=== PATIENT | female | born 1950 | race Caucasian/White ===

== ENCOUNTER 2016-05-16 20:38 | Inpatient (IN) | payer MEDICARE, OTHER ==
[~2016-05-16] VITALS: Ht 165.1 cm; Wt 112.9 kg
[~2016-05-16 20:38] MED LIST: AMLO10TA82 PO; ASP81CT PO; CLON-378 PO; CLON0.3T4 PO; DABI150C2 PO; DILT300C PO; DOXA2TAB2 PO; ENAL10TA PO; FAMO20TA5 PO; FLAX100031 PO; FLEC150T PO; INSU100C4 SQ; INSU100I23 SQ; LUTE10TA PO; LVT.1T PO; METO-310 PO; MULT1CAP27 PO; OMEG1CAP58 PO; ONDA8TAB13 PO; PRAV80TA2 PO; QUIN20TA15 PO; SLM50DS INH; TRAM50TA2 PO; [UNRECOGNIZED DRUG - OTHER] IH
--- OUTSIDE RECORDS SUMMARY | 2016-05-16 20:44 | XMS REPORT | Continuity of Care Document ---
Author Author [facility] Organization [facility] Address Unknown Phone Unavailable Care Team Providers Care Special Education Associate Name Role Phone SHELL TOVAR MD PCP Insurance Providers Payer Name Policy Number Subscriber Name Relationship [facility] [id number] Carol Durham Self / Same As Patient Advance Directives Directive Response Recorded Date/Time Advance Directives Yes 01/10/14 5:18pm Health Care Power of Drier Operator Yes 01/10/14 5:18pm Organ Donor No 01/10/14 5:18pm Resuscitation Status Full Code 01/10/14 5:18pm Problems Medical Problems Problem Onset Date Status Bat bite of finger Unknown Active Need for post exposure prophylaxis for rabies Unknown Active Medications Medication Dose Route Sig Days/Qty Instructions Order Date Discontinued Date Status Clonidine HCl 1 Each PO TWICE A DAY 10/14/11 11/02/11 Discontinued Quinapril Hcl 40 Mg PO TWICE A DAY 10/14/11 01/10/14 Discontinued Amlodipine Besylate (Norvasc 10 Mg) 1 Each PO DAILY 10/14/11 Discontinued Levothyroxine Sodium (Levothroid) 1 Each PO DAILY 10/14/11 Active Pravastatin Sodium 40 Mg PO DAILY 10/14/11 11/02/11 Discontinued Insulin Glargine 27 Units SQ BEDTIME 10/14/11 Active Insulin Human Lispro 0 SQ DAILY AC SLINDING SCALE 10/14/11 Active Dabigatran Etexilate Mesylate 150 Mg PO TWICE A DAY 10/15/11 Active Diltiazem HCl (Cardizem Cd) 1 Each PO DAILY 10/15/11 01/10/14 Discontinued Clonidine HCl 1 Each PO TWICE A DAY 11/02/11 Active Lutein 10 Mg PO DAILY 11/02/11 Active Multivitamins 1 Each PO DAILY 11/02/11 Active Aspirin 81 Mg PO DAILY 11/02/11 11/02/11 Discontinued Salmeterol Xinafoate 0 INH DAILY PRN 11/02/11 Active [place]-3/[place]-6/[place]-9 Fatty Acids (Lovaza) 2 Each PO DAILY 01/10/14 Discontinued Pravastatin Sodium 40 Mg PO 11/02/11 Active Diltiazem HCl (Cartia Xt) 1 Each PO DAILY 01/10/14 Active Enalapril Maleate 10 Mg PO DAILY 01/10/14 Active Flaxseed Oil 1,200 Mg PO TWICE A DAY 01/10/14 Active Flecainide Acetate 150 Mg PO TWICE A DAY 01/10/14 Active [Maxaire] IH NEEDED 01/10/14 Active Social History Social History Problem Response Recorded Date/Time Alcohol Use Denies Use 01/10/2014 5:18pm Recreational Drug Use No 01/10/2014 5:18pm Smoking Status Never a Smoker 01/10/2014 5:18pm Query Response Start Date Stop Date Smoking Status Never a Smoker Hospital Discharge Instructions No hospital discharge instructions. Plan of Care No plan of care. Functional Status No functional status results. Allergies, Adverse Reactions, Alerts Allergen Type Severity Reaction Status Last Updated No Known Drug Allergies Active 10/14/11 Immunizations Name Given Type Date of Influenza Vaccine 03/15/11 Historical Tetanus Booster (TDap) Less than 5yrs Historical rabies, intramuscular injection 01/10/14 Administered RIG 01/10/14 Administered Vital Signs Acute Vital Signs Vital Response Date/Time Temperature (Fahrenheit) 98.6 degrees F (97.6 - 99.5) Temperature (Calculated Celsius) 37.30754 degrees C (36.4 - 37.5) Temperature Source Temporal Pulse Rate (adult) 75 bpm (60 - 90) Respiratory Rate 18 bpm (12 - 24) O2 Sat by Pulse Oximetry 96 % (88 - 100) Blood Pressure 196/61 mm Hg Pain Pain Intensity 0 Height (Feet) 5 feet Height (Inches) 5 inches Height (Calculated Centimeters) 165.142406 cm Weight (Pounds) 234 pounds Weight (Calculated Kilograms) 106.667482 kilograms Calculated BMI 38.93 Results Test Source Date Result Interp. Ref. Range Comments Activated Partial Thromboplast Time November 01, 2011 9:02am 38 SEC H 24-35 Alanine Aminotransferase (ALT/SGPT) March 08, 2013 8:20am 30 U/L N 30- 65 Albumin March 08, 2013 8:20am 3.5 G/DL N 3.4-5.0 Alkaline Phosphatase March 08, 2013 8:20am 111 U/L N 50-136 Aspartate Amino Transf (AST/SGOT) March 08, 2013 8:20am 18 U/L N 15- 37 BUN/Creatinine Ratio October 02, 2013 10:31am 21 - Blood Urea Nitrogen October 02, 2013 10:31am 15 MG/DL N 7-18 Calcium Level October 02, 2013 10:31am 9.4 MG/DL N 8.5-10.1 Carbon Dioxide Level October 02, 2013 10:31am 33 MMOL/L H 21-32 Chloride Level October 02, 2013 10:31am 102 MMOL/L N 101-110 Cholesterol Level March 08, 2013 8:20am 149 MG/DL N -200 Creatinine October 02, 2013 10:31am 0.7 MG/DL N 0.6-1.3 Digoxin Level January 05, 2012 11:00am 0.7 NG/ML L 0.9-2.0 Glucose Level December 19, 2013 11:46am 165 MG/DL H 70-105 HDL Cholesterol March 08, 2013 8:20am 68 MG/DL H 35-60 Hematocrit November 01, 2011 9:02am 38 % N 35-52 Hemoglobin November 01, 2011 9:02am 12.7 G/DL N 11.5-16.0 Hemoglobin A1c December 19, 2013 11:46am 8.4 % H 4.5-6.2 LDL Cholesterol March 08, 2013 8:20am 60 MG/DL N 0-129 LDL Cholesterol Direct June 07, 2012 11:00am 54 MG/DL - Interpretative data is available online at:[email or web address] Test Number:[id number] Magnesium Level February 04, 2012 10:31am 1.8 MG/DL N 1.8-2.4 Mean Corpuscular Hemoglobin November 01, 2011 9:02am 30 PG N 25-34 Mean Corpuscular Hemoglobin Concent November 01, 2011 9:02am 33 G/DL N 32- 36 Mean Corpuscular Volume November 01, 2011 9:02am 89 FL N 80-99 Mean Platelet Volume November 01, 2011 9:02am 11.4 FL H 7.4-10.4 Platelet Count November 01, 2011 9:02am 253 10^3/uL N 130-400 Potassium Level October 02, 2013 10:31am 4.8 MMOL/L N 3.6-5.0 Prothromb Time International Ratio November 01, 2011 9:02am 1.0 N 0.8-1.4 INTERPRETIVE DATASUGGESTED THERAPEUTIC RANGE FOR INR'S: VENOUS THROMBOSIS, PULMONARY EMBOLISM, OR PREVENTION OF SYSTEMIC EMBOLISM (EG. IN ATRIAL FIBRILLATION): 2.0 - 3.0 MECHANICAL PROSTHETIC HEART VALVES: 2.5 - 3.5* *NOTE: INR'S UP TO 4.5 MAY BE NECESSARY IN SELECTED GROUPS OF HIGH RISK PATIENTS. [employer] CONSENSUS CONFERENCE ON ANTITHROMBOTIC THERAPY (2000). Prothrombin Time November 01, 2011 9:02am 13.6 SEC N 12.2-14.7 Red Blood Count November 01, 2011 9:02am 4.28 10^6/uL L 4.35-5.85 Red Cell Distribution Width November 01, 2011 9:02am 14.2 % N 10.0-14.5 Sodium Level October 02, 2013 10:31am 136 MMOL/L N 135-145 Thyroid Stimulating Hormone (TSH) December 19, 2013 11:46am 0.92 UIU/ML N 0.35-4.94 Total Bilirubin March 08, 2013 8:20am 0.6 MG/DL N 0.0-1.0 Total Protein March 08, 2013 8:20am 7.6 G/DL N 6.4-8.2 Triglycerides Level March 08, 2013 8:20am 105 MG/DL N 30.0-150.0 Urine Bacteria January 08, 2014 1:45pm TRACE /HPF - SPECIMEN IN THE [facility] Urine Bilirubin January 08, 2014 1:45pm NEGATIVE - SPECIMEN IN THE [facility] [facility] Urine Casts January 08, 2014 1:45pm NONE /LPF - SPECIMEN IN [facility] Urine Clarity January 08, 2014 1:45pm CLEAR - SPECIMEN IN [facility] Urine Color January 08, 2014 1:45pm YELLOW - SPECIMEN IN [facility] Urine Creatinine Calculated March 08, 2013 8:27am 0.74 G/L - Urine Crystals January 08, 2014 1:45pm NONE /LPF - SPECIMEN IN THE [facility] Urine Culture Indicated January 08, 2014 1:45pm NO - SPECIMEN IN [facility] Urine Glucose (UA) January 08, 2014 1:45pm 4+ H - SPECIMEN IN THE [facility] Urine Ketones January 08, 2014 1:45pm NEGATIVE - SPECIMEN IN THE [facility] Urine Leukocyte Esterase January 08, 2014 1:45pm NEGATIVE - SPECIMEN IN THE [facility] Urine Microalbumin/Creatinine Ratio March 08, 2013 8:27am 3.5 MG/GCR - Urine Mucus January 08, 2014 1:45pm NEGATIVE /LPF - SPECIMEN IN THE [facility] Urine Nitrate September 19, 2007 10:34am Negative - Urine Nitrite January 08, 2014 1:45pm NEGATIVE - SPECIMEN IN THE [facility] Urine Protein January 08, 2014 1:45pm NEGATIVE - SPECIMEN IN THE [facility] Urine RBC January 08, 2014 1:45pm 0-2 /HPF - SPECIMEN IN THE [facility] Urine Random Microalbumin March 08, 2013 8:27am 2.6 MG/L - Urine Specific [place] January 08, 2014 1:45pm 1.020 - SPECIMEN IN THE [facility] Urine Squamous Epithelial Cells January 08, 2014 1:45pm 5-10 /HPF - SPECIMEN IN THE [facility] Urine Urobilinogen January 08, 2014 1:45pm NORMAL MG/DL - SPECIMEN IN THE [facility] Urine WBC January 08, 2014 1:45pm 0-2 /HPF - SPECIMEN IN THE [facility] Urine pH January 08, 2014 1:45pm 5 - SPECIMEN IN [facility] VLDL Cholesterol March 08, 2013 8:20am 21 MG/DL N 5-40 White Blood Count November 01, 2011 9:02am 8.1 10^3/uL N 4.3-11.0 Urine Creatinine mg/dL March 08, 2013 8:27am 74 MG/DL - Estimat Glomerular Filtration Rate October 02, 2013 10:31am > 60 - GFR INTERPRETIVE DATA UNITS FOR ESTIMATED GFR (eGFR): mL/min/1.73 M2 REFERENCE RANGE FOR ESTIMATED GFR (eGFR) eGFR NORMAL eGFR >60 MODERATELY DECREASED eGFR 30-59 SEVERLY DECREASED eGFR 15-29 KIDNEY FAILURE <15 (OR DIALYSIS) Urine RBC (Auto) January 08, 2014 1:45pm 1+ H - SPECIMEN IN THE [facility] Procedures No known history of procedures. Encounters Encounter Location Date/Time Departed Emergency Room [facility] 01/10/14 5:12pm Registered Recurring [facility] 01/08/14 1:38pm Registered Clinic [facility] 12/19/13 11:32am Recent Diagnosis
--- NOTE | 2016-05-16 22:04 | ED GI ---
General Chief Complaint: Abdominal/GI Problems Stated Complaint: VOMITING Nursing Triage Note: Pt presents to ED with c/o N/V/D. Diarrhea began last night- approx 2-3 x since onset. N/V began at 0900 today, has vomited approx 8 x since this AM. Sepsis Screen: No Definite Risk Source of Information: Patient, RN Notes Reviewed Exam Limitations: No Limitations History of Present Illness Time Seen By Provider: 22:04 Initial Comments As above. Also has had chest congestion and a cough for the last several days. Timing/Duration: 24 Hours Severity/Quality: Moderate Activities at Onset: None Modifying Factors: Worsens With Coughing Associated Symptoms: Nausea/Vomiting Shortness of Air Allergies and Home Medications Allergies Coded Allergies: insulin detemir (Verified Allergy, Intermediate, RASH, 04/03/16) red bumps at insertion site of injection Home Medications Clonidine Hcl 0.2 Mg Tab 0.2 MG PO BID (Reported) Dabigatran Etexilate Mesylate 150 Mg Capsule 150 MG PO BID (Reported) Diltiazem Hcl 300 Mg Cap.sr.24h 300 MG PO DAILY (Reported) Doxazosin Mesylate 2 Mg Tablet 2 MG PO BID (Reported) Enalapril Maleate 10 Mg Tablet 10 MG PO DAILY (Reported) Flaxseed Oil 1,000 Mg Capsule 2,000 MG PO DAILY (Reported) Flecainide Acetate 150 Mg Tablet 150 MG PO BID (Reported) Insulin Glargine,Hum.rec.anlog 300 Units/3 Ml Soln 27 UNITS SQ HS (Reported) Insulin Human Lispro 300 U/3 Ml Insuln.pen 0 SQ DAILY AC (Reported) SLINDING SCALE Levothyroxine Sodium 100 Mcg Tablet 100 MG PO DAILY (Reported) Lutein 10 Mg Tablet 10 MG PO DAILY (Reported) Metoclopramide HCl 10 Mg Tablet #30 10 MG PO ACHS PRN PRN nausea Prescribed by: ADRIANO BAEZ on 04/04/16 0921 Multivitamins 1 Each Capsule 1 EACH PO DAILY (Reported) Pravastatin Sodium 80 Mg Tablet 40 MG PO HS (Reported) Review of Systems Constitutional: see HPI Respiratory: See HPI Cough Gastrointestinal: Diarrhea Nausea Vomiting All Other Systems Reviewed Negative Unless Noted: Yes (Negative excepted noted.) Past Gpvrcic-Awrlyx-Xcxshg Hx Patient Social History Alcohol Use: Denies Use Recreational Drug Use: No Smoking Status: Never a Smoker Recent Foreign Travel: No Contact w/Someone Who Travel: No Recent Infectious Disease Expo: No Recent Hopitalizations: Yes (In ED at end of Mar with N/V.) Physical Abuse Screen: No Sexual Abuse: No Immunizations Up To Date Tetanus Booster (TDap): Less than 5yrs Date of Pneumonia Vaccine: Mar 03, 2015 Date of Influenza Vaccine: Mar 03, 2016 Seasonal Allergies Seasonal Allergies: No Surgeries HX Surgeries: Yes (BREAST FIBROID 1975 REMOVED) Surgeries: Bladder Surgery, Breast, Hysterectomy Respiratory Hx Respiratory Disorders: Yes Respiratory Disorders: Asthma Cardiovascular Hx Cardiac Disorders: Yes (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 12) Cardiac Disorders: Atrial Fibrillation, High Cholesterol, Hypertension Neurological Hx Neurological Disorders: No 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 System Hx 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 Disorders: No [employer] History: Hysterectomy Genitourinary Hx Genitourinary Disorders: No Gastrointestinal Hx Gastrointestinal Disorders: No Musculoskeletal Hx Musculoskeletal Disorders: No Endocrine Hx Endocrine Disorders: Yes Endocrine Disorders: Diabetes, Insulin dep, Hypothyroidsim HEENT HX ENT Disorders: No Cancer Hx Cancer: No Psychosocial Hx Psychiatric Problems: No Integumentary HX Skin/Integumentary Disorder: No Blood Transfusions Hx Blood Disorders: No Family Medical History Significant Family History: No Pertinent Family Hx Physical Exam Vital Signs VS - Last 72 Hours, by Label 05/16/16 05/16/16 05/16/16 05/16/16 21:45 22:00 22:30 23:00 Temp 98.9 98.9 98.7 98.6 Pulse 98 100 99 101 Resp 20 B/P 186/86 184/80 184/86 177/80 Pulse Ox 95 94 95 95 O2 Delivery Room Air Room Air Room Air Room Air 05/16/16 05/17/16 05/17/16 05/17/16 23:30 00:00 00:30 01:00 Temp 98.8 98.9 98.7 98.9 Pulse 104 101 105 101 Resp 20 B/P 189/84 224/74 200/79 154/77 Pulse Ox 94 96 95 94 O2 Delivery Room Air Room Air Room Air Room Air Capillary Refill : Less Than 3 Seconds General Appearance: WD/WN mild distress obese HEENT: other (oral pharynx is somewhat dry) Neck: normal inspection Respiratory: lungs clear Cardiovascular: regular rate, rhythm Gastrointestinal: No guarding, No rebound, tenderness (epigastric) other ( obese) Rectal: deferred Neurologic/Psychiatric: no motor/sensory deficits alert oriented x 3 Skin: warm/dry Progress/Results/Core Measures Results/Orders Lab Results Laboratory Tests Test 05/16/16 22:00 05/16/16 22:56 05/16/16 23:00 Range/Units Alanine Aminotransferase (ALT/SGPT) 22 0-55 U/L Albumin 4.3 3.2-4.5 G/DL Alkaline Phosphatase 85 40-136 U/L Anion Gap 16 H 5-14 MMOL/L Aspartate Amino Transf (AST/SGOT) 24 5-34 U/L BUN/Creatinine Ratio 23 Basophils # (Auto) 0.0 0.0-0.1 10^3/uL Basophils (%) (Auto) 0 0-10 % Blood Morphology Comment NORMAL Blood Urea Nitrogen 20 H 7-18 MG/DL Calcium Level 9.9 8.5-10.1 MG/DL Carbon Dioxide Level 22 21-32 MMOL/L Chloride Level 98 98-107 MMOL/L Creatinine 0.87 0.60-1.30 MG/DL Eosinophils # (Auto) 0.0 0.0-0.3 10^3/uL Eosinophils (%) (Auto) 0 0-10 % Estimat Glomerular Filtration Rate > 60 Glucose Level 340 H 70-105 MG/DL Hematocrit 38 35-52 % Hemoglobin 12.6 11.5-16.0 G/DL Lipase 21 8-78 U/L Lymphocytes # (Auto) 0.7 L 1.0-4.0 X 10^3 Lymphocytes % (Manual) 4 % Lymphocytes (%) (Auto) 8 L 12-44 % Magnesium Level 2.0 1.8-2.4 MG/DL Mean Corpuscular Hemoglobin 29 25-34 PG Mean Corpuscular Hemoglobin Concent 33 32-36 G/DL Mean Corpuscular Volume 88 80-99 FL Mean Platelet Volume 10.7 H 7.4-10.4 FL Monocytes # (Auto) 0.2 0.0-1.0 X 10^3 Monocytes % (Manual) 3 % Monocytes (%) (Auto) 2 0-12 % Neutrophils # (Auto) 7.4 1.8-7.8 X 10^3 Neutrophils % (Manual) 93 % Neutrophils (%) (Auto) 90 H 42-75 % Phosphorus Level 3.9 2.3-4.7 MG/DL Platelet Count 254 130-400 10^3/uL Potassium Level 4.7 3.6-5.0 MMOL/L Red Blood Count 4.34 L 4.35-5.85 10^6/uL Red Cell Distribution Width 14.2 10.0-14.5 % Sodium Level 136 135-145 MMOL/L Total Bilirubin 0.5 0.1-1.0 MG/DL Total Protein 7.8 6.4-8.2 G/DL Troponin I < 0.30 <0.30 NG/ML Urine Bacteria TRACE /HPF Urine Bilirubin NEGATIVE NEGATIVE Urine Casts PRESENT /LPF Urine Clarity CLEAR Urine Color YELLOW Urine Crystals NONE /LPF Urine Culture Indicated NO Urine Glucose (UA) 4+ H NEGATIVE Urine Hyaline Casts 5-10 H /LPF Urine Ketones 4+ H NEGATIVE Urine Leukocyte Esterase NEGATIVE NEGATIVE Urine Mucus NEGATIVE /LPF Urine Nitrite NEGATIVE NEGATIVE Urine Protein 2+ H NEGATIVE Urine RBC NONE /HPF Urine RBC (Auto) 3+ H NEGATIVE Urine Specific [place] 1.025 H 1.016-1.022 Urine Squamous Epithelial Cells 5-10 /HPF Urine Urobilinogen NORMAL NORMAL MG/DL Urine WBC RARE /HPF Urine pH 5 5-9 White Blood Count 8.3 4.3-11.0 10^3/uL Sumit Test NA Arterial Blood Base Excess 0.8 -2.5-2.5 MMOL/L Arterial Blood HCO3 27 23-27 MMOL/L Arterial Blood Oxygen Saturation 63 L 94-100 % Arterial Blood Partial Pressure CO2 48 H 35-45 MMHG Arterial Blood Partial Pressure O2 36 *L 79-93 MMHG Arterial Blood Total CO2 28.2 21.0-31.0 MMOL/L Arterial Blood pH 7.36 L 7.37-7.43 Blood Gas Inspired Oxygen NA Blood Gas Patient Temperature 98.8 Blood Gas Puncture Site LEFT AC Blood Gas Ventilator Setting NO Lactic Acid Level 0.9 0.5-2.0 MMOL/L Micro Results Microbiology 05/16/16 Blood Culture - Preliminary, Resulted No growth 05/16/16 Blood Culture - Preliminary, Resulted No growth 05/16/16 Influenza Types A,B Antigen (CHANTEL) - Final, Complete My Orders Orders-ANDREA MCCOY DO Saline Lock/Iv-Start (05/16/16 22:04) Cbc With Automated Diff (05/16/16 22:04) Comprehensive Metabolic Panel (05/16/16 22:04) Lipase (05/16/16 22:04) Magnesium (05/16/16 22:04) Troponin I (05/16/16 22:04) Ua Culture If Indicated (05/16/16 22:04) Influenza A And B Antigens (05/16/16 22:04) Famotidine Injection (Pepcid Injection) (05/16/16 22:15) Ondansetron Injection (Zofran Injectio (05/16/16 22:15) Manual Differential (05/16/16 22:00) Saline Lock/Iv-Start (05/16/16 22:31) Ns Iv 1000 Ml (Sodium Chloride 0.9%) (05/16/16 22:31) Arterial Blood Gas (05/16/16 22:32) Phosphorus (05/16/16 22:32) Ondansetron Injection (Zofran Injectio (05/16/16 23:00) Ct Abdomen/Pelvis Wo (05/16/16 22:52) Blood Culture (05/16/16 23:00) Lactic Acid Analyzer (05/16/16 23:00) Arterial Blood Gas (05/16/16 23:12) Clonidine Tablet (Catapres Tablet) (05/17/16 00:00) Clonidine Tablet (Catapres Tablet) (05/16/16 23:53) Insulin Aspart (Novolog) (Novolog (Charg (05/17/16 00:15) Chest 1 View, Ap/Pa Only (05/17/16 00:19) Ceftriaxone Injection (Rocephin Injectio (05/17/16 00:45) Ns Iv 1000 Ml (Sodium Chloride 0.9%) (05/17/16 00:45) Ceftriaxone Injection (Rocephin Injectio (05/17/16 00:42) Normal Saline (Gonzalez Mini) (Ns (Gonzalez (05/17/16 00:42) Medications Given in ED Vital Signs/I&O Vital Sign - Last 12Hours 05/16/16 05/16/16 05/16/16 05/16/16 21:45 22:00 22:30 23:00 Temp 98.9 98.9 98.7 98.6 Pulse 98 100 99 101 Resp 18 20 20 20 B/P 186/86 184/80 184/86 177/80 Pulse Ox 95 94 95 95 O2 Delivery Room Air Room Air Room Air Room Air 05/16/16 05/17/16 05/17/16 05/17/16 23:30 00:00 00:30 01:00 Temp 98.8 98.9 98.7 98.9 Pulse 104 101 105 101 Resp 20 18 22 20 B/P 189/84 224/74 200/79 154/77 Pulse Ox 94 96 95 94 O2 Delivery Room Air Room Air Room Air Room Air Blood Pressure Mean: 119 Departure Communication Time/Spoke to Admitting Phy: 00:40 Impression Impression: Primary Impression: Nausea and vomiting Additional Impressions: RLL pneumonia DKA (diabetic ketoacidoses) Disposition: ADMITTED INPATIENT Condition: Stable Decision to Admit Reason: Admit from ER (General) Decision to Admit/Date: May 17, 2016 Time/Decision to Admit Time: 00:40 Departure-Patient Inst. Referrals: SHELL TOVAR MD (PCP/Family) Primary Care Physician ANDREA MCCOY DO May 16, 2016 22:04
[2016-05-16 22:10] LABS: BASOPHILS % (AUTO) 0 % (0-10); BILIRUBIN,URINE NEGATIVE (NEGATIVE); EOSINOPHILS % (AUTO) 0 % (0-10); KETONES,URINE 4+ (NEGATIVE); LEUKOCYTE ESTERASE ,URINE NEGATIVE (NEGATIVE); LYMPHOCYTES # (AUTO) 0.7 X 10^3 (1.0-4.0); LYMPHOCYTES % (AUTO) 8 % (12-44); MEAN CORPUSCULAR HEMOGLOBIN 29 PG (25-34); MEAN CORPUSCULAR HGB CONC 33 G/DL (32-36); MEAN CORPUSCULAR VOLUME 88 FL (80-99); MEAN PLATELET VOLUME 10.7 FL (7.4-10.4); MONOCYTES # (AUTO) 0.2 X 10^3 (0.0-1.0); MONOCYTES % (AUTO) 2 % (0-12); NEUTROPHILS # (AUTO) 7.4 X 10^3 (1.8-7.8); NEUTROPHILS % (AUTO) 90 % (42-75); NITRITE,URINE NEGATIVE (NEGATIVE); PH,URINE 5 (5-9); PLATELET COUNT 254 10^3/uL (130-400); PROTEIN,URINE 2+ (NEGATIVE); RED BLOOD COUNT 4.34 10^6/uL (4.35-5.85); RED CELL DISTRIBUTION WIDTH 14.2 % (10.0-14.5); UROBILINOGEN,URINE NORMAL (NORMAL); WHITE BLOOD COUNT 8.3 10^3/uL (4.3-11.0)
[2016-05-16] MEDS ORDERED: ONDANSETRON 4 MG/2 ML (SDV) Z0FRAN IVP ONE ×2 (22:15→23:00)
[2016-05-16] MEDS ORDERED: FAMOTIDINE 20MG/2ML IV (PEPCID) IVP ONE (22:15)
[2016-05-16 22:28] LABS: WBC,URINE RARE /HPF
[2016-05-16] MEDS ORDERED: NS IV 1000 ML 1,000 ML IV ONE (22:31)
[2016-05-16 22:37] LABS: ALANINE AMINOTRANSFERASE 22 U/L (0-55); ALBUMIN 4.3 G/DL (3.2-4.5); ANION GAP 16 MMOL/L (5-14); ASPARTATE AMINO TRANSFERASE 24 U/L (5-34); BILIRUBIN,TOTAL 0.5 MG/DL (0.1-1.0); BLOOD UREA NITROGEN 20 MG/DL (7-18); BUN/CREATININE RATIO 23; CALCIUM 9.9 MG/DL (8.5-10.1); CARBON DIOXIDE 22 MMOL/L (21-32); CHLORIDE 98 MMOL/L (98-107); CREATININE SERUM 0.87 MG/DL (0.60-1.30); GFR ESTIMATED > 60; GLUCOSE 340 MG/DL (70-105); LIPASE 21 U/L (8-78); POTASSIUM 4.7 MMOL/L (3.6-5.0); SODIUM 136 MMOL/L (135-145); TOTAL PROTEIN 7.8 G/DL (6.4-8.2)
[2016-05-16 22:43] LABS: TROPONIN I < 0.30 NG/ML (<0.30)
[2016-05-16 22:49] LABS: LYMPHOCYTES % (MANUAL) 4 %; NEUTROPHILS % (MANUAL) 93 %
[2016-05-16 23:25] LABS: ABG BASE EXCESS 0.8 MMOL/L (-2.5-2.5); ABG HCO3 27 MMOL/L (23-27); ABG PCO2 48 MMHG (35-45); ABG PH 7.36 (7.37-7.43); ABG TCO2 28.2 MMOL/L (21.0-31.0)
[2016-05-16 23:26] LABS: ABG OXYGEN SATURATION 63 % (94-100); ABG PO2 36 MMHG (79-93); PATIENT TEMP 98.8
[2016-05-16] MEDS ORDERED: cloNIDine 0.2 MG (CATAPRES) TAB ONE (23:53)
[2016-05-17] VITALS (14 sets, daily range): BP systolic 139–189; BP diastolic 55–112
[2016-05-17] MEDS ORDERED: cloNIDine 0.2 MG (CATAPRES) TAB PO ONE
[2016-05-17] MEDS ORDERED: inSUlin ASPART (NovoLOG) 1 UNIT/0.01 ML (CHARGE PER UNIT) SC ONE (00:15)
[2016-05-17] MEDS ORDERED: cefTRIAXone 1 GM (ROCEPHIN) VIAL ONE (00:42)
[2016-05-17] MEDS ORDERED: NORMAL SALINE (BAXTER MINI) 50 ML IV ONE (00:42)
[2016-05-17] MEDS ORDERED: NS IV 1000 ML 1,000 ML IV SCH ×2 (00:45→03:45)
[2016-05-17] MEDS ORDERED: cefTRIAXone INJECTION 1,000 MG in NORMAL SALINE (BAXTER MINI) 50 ML IV ONE (00:45)
[2016-05-17] MEDS ORDERED: NS (IVPB) 100 ML ONE (01:59)
[2016-05-17] MEDS ORDERED: inSUlin (REGULAR) HUMAN 1 UNIT/0.01 ML (CHARGE PER UNIT) ONE (02:01)
[2016-05-17] MEDS ORDERED: AZITHROMYCIN IV ADD-VANTAGE 500 MG IV ONE (02:07)
[2016-05-17] MEDS ORDERED: SODIUM CHLORIDE (ADD-VANTAGE) 250 ML ONE (02:08)
[2016-05-17] MEDS ORDERED: RT-ALBUTEROL SULF 2.5 MG/3 ML PRE-MIX VIAL INH PRN (03:15)
[2016-05-17] MEDS ORDERED: NS IV 1000 ML X 1 WIDE OPEN IV ONE (03:45)
[2016-05-17] MEDS ORDERED: DEXTROSE 10% IV SCH (03:45)
[2016-05-17] MEDS ORDERED: REGULAR inSUlin DRIP 250 UNITS/NS 250 ML IV SCH ×2 (03:45)
[2016-05-17] MEDS ORDERED: 1/2 NS W/KCL 20 MEQ/L 1,000 ML IV SCH (03:45)
[2016-05-17] MEDS ORDERED: POTASSIUM CL 10MEQ/50ML IVPB X 4 (TOTAL 40 MEQ) IV SCH (03:45)
[2016-05-17] MEDS ORDERED: POTASSIUM CHLORIDE IV SCH (03:45)
[2016-05-17] MEDS ORDERED: ONDANSETRON 4 MG/2 ML (SDV) Z0FRAN IV PRN (03:45)
[2016-05-17 04:26] LABS: BASOPHILS % (AUTO) 0 % (0-10); EOSINOPHILS % (AUTO) 0 % (0-10); LYMPHOCYTES % (AUTO) 8 % (12-44); MEAN CORPUSCULAR HEMOGLOBIN 29 PG (25-34); MEAN CORPUSCULAR HGB CONC 33 G/DL (32-36); MEAN CORPUSCULAR VOLUME 89 FL (80-99); MEAN PLATELET VOLUME 11.3 FL (7.4-10.4); MONOCYTES # (AUTO) 0.7 X 10^3 (0.0-1.0); MONOCYTES % (AUTO) 5 % (0-12); NEUTROPHILS # (AUTO) 10.9 X 10^3 (1.8-7.8); NEUTROPHILS % (AUTO) 87 % (42-75); PLATELET COUNT 230 10^3/uL (130-400); RED CELL DISTRIBUTION WIDTH 14.2 % (10.0-14.5); WHITE BLOOD COUNT 12.6 10^3/uL (4.3-11.0)
[2016-05-17 04:52] LABS: ANION GAP 13 MMOL/L (5-14); BLOOD UREA NITROGEN 19 MG/DL (7-18); BUN/CREATININE RATIO 25; CALCIUM 8.9 MG/DL (8.5-10.1); CARBON DIOXIDE 21 MMOL/L (21-32); CHLORIDE 105 MMOL/L (98-107); CREATININE SERUM 0.75 MG/DL (0.60-1.30); GFR ESTIMATED > 60; GLUCOSE 240 MG/DL (70-105); PHOSPHORUS 4.1 MG/DL (2.3-4.7); POTASSIUM 4.2 MMOL/L (3.6-5.0); SODIUM 139 MMOL/L (135-145)
[2016-05-17] MEDS ORDERED: D5 1/2 NS 1000 ML IV SOLUTION 0 ML IV ONE (06:22)
--- NOTE | 2016-05-17 06:38 | Diagnostic Imaging Report ---
PROCEDURE: CT abdomen and pelvis without contrast. TECHNIQUE: Multiple contiguous axial images were obtained through the abdomen and pelvis without the use of intravenous contrast. INDICATION: Cough. Infiltrate in the right lower lobe is suggestive of mild pneumonia. No basilar effusion. Liver, gallbladder, bile ducts, spleen, adrenals, pancreas unremarkable. There is a small hiatal hernia. There are no opaque kidney stones there is no hydronephrosis. There are no findings of appendicitis or diverticulitis. There is no evidence for bowel obstruction. Aorta is calcified but nonaneurysmal. No lymphadenopathy or mass. No acute osseous disease. IMPRESSION: Unobstructed urinary tracts. No biliary dilatation. No bowel obstruction or acute inflammatory process below the diaphragm. Mild infiltrate in the right lower lobe, however, suspicious for pneumonia. Dictated by: Dictated on workstation # [id number]
--- NOTE | 2016-05-17 06:42 | Pulmonary Consultation ---
History of Present Illness History of Present Illness Date of Consultation 05/17/16 06:37 Date of Admission History of Present Illness 66yo with hx of IDDM type 1 presented to ED secondary to progressive SOB and N/ V/D. Symptoms started 2 days ago. SHe is no coughing anything up but did have orthopnea. Upon ED admission she was found to be in DKA and was started on insulin gtt. There is no one else at home sick. Influenza is negative. She does feel much improved since admission. I am consulted for ICU management. Allergies and Home Medications Allergies Coded Allergies: insulin detemir (Verified Allergy, Intermediate, RASH, 04/03/16) red bumps at insertion site of injection Home Medications Clonidine Hcl 0.2 Mg Tab 1 EACH PO BID (Reported) Dabigatran Etexilate Mesylate 150 Mg Capsule 150 MG PO BID (Reported) Diltiazem Hcl 300 Mg Cap.sr.24h 1 EACH PO DAILY (Reported) Doxazosin Mesylate 2 Mg Tablet 2 MG PO DAILY (Reported) Enalapril Maleate 10 Mg Tablet 10 MG PO DAILY (Reported) Flaxseed Oil 1,000 Mg Capsule 2,000 MG PO DAILY (Reported) Flecainide Acetate 150 Mg Tablet 150 MG PO BID (Reported) Insulin Glargine,Hum.rec.anlog 300 Units/3 Ml Soln 27 UNITS SQ HS (Reported) Insulin Human Lispro 300 U/3 Ml Insuln.pen 0 SQ DAILY AC (Reported) SLINDING SCALE Levothyroxine Sodium 100 Mcg Tablet 1 EACH PO DAILY (Reported) Lutein 10 Mg Tablet 10 MG PO DAILY (Reported) Metoclopramide HCl 10 Mg Tablet #30 10 MG PO ACHS PRN PRN nausea Prescribed by: ADRIANO BAEZ on 04/04/16 0921 Multivitamins 1 Each Capsule 1 EACH PO DAILY (Reported) Pravastatin Sodium 80 Mg Tablet 40 MG PO DAILY (Reported) Past Dsasntt-Gzfzqm-Rmicyp Hx Patient Social History Alcohol Use: Denies Use Recreational Drug Use: No Smoking Status: Never a Smoker Recent Foreign Travel: No Contact w/Someone Who Travel: No Recent Infectious Disease Expo: No Recent Hopitalizations: Yes (In ED at end of Mar with N/V.) Physical Abuse Screen: No Sexual Abuse: No Immunizations Up To Date Tetanus Booster (TDap): Less than 5yrs Date of Pneumonia Vaccine: May 04, 2016 Date of Influenza Vaccine: Mar 03, 2016 Seasonal Allergies Seasonal Allergies: No Surgeries HX Surgeries: Yes (BREAST FIBROID 1975 REMOVED) Surgeries: Bladder Surgery, Breast, Hysterectomy Respiratory Hx Respiratory Disorders: Yes Respiratory Disorders: Asthma Cardiovascular Hx Cardiac Disorders: Yes (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 12) Cardiac Disorders: Atrial Fibrillation, High Cholesterol, Hypertension Neurological Hx Neurological Disorders: No 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 System Hx 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 Disorders: 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 Genitourinary Hx Genitourinary Disorders: No Gastrointestinal Hx Gastrointestinal Disorders: No Musculoskeletal Hx Musculoskeletal Disorders: No Endocrine Hx Endocrine Disorders: Yes Endocrine Disorders: Diabetes, Insulin dep, Hypothyroidsim HEENT HX ENT Disorders: No Cancer Hx Cancer: No Psychosocial Hx Psychiatric Problems: No Integumentary HX Skin/Integumentary Disorder: No Blood Transfusions Hx Blood Disorders: No Adverse Reaction to a Blood Tr: No Family Medical History Significant Family History: No Pertinent Family Hx Family Medial History: Arthritis 19 FATHER 19 MOTHER Asthma 19 FATHER Cardiovascular disease 19 FATHER 19 MOTHER Cataracts 19 MOTHER Deafness or hearing loss 19 FATHER Dementia 19 MOTHER Diabetes mellitus G8 SISTER G8 SISTER Glaucoma 19 FATHER Hypertension 19 MOTHER Prostate cancer 19 FATHER Respiratory disorder 19 FATHER Thyroid disease G8 SISTER Review of Systems Constitutional: : Chills: Fever: Malaise: Sweats: Weakness Eyes: No: Conjunctivae inflammation, Eyelid inflammation, Other, Pain, Redness , Vision change ENT: : Nose congestion: Nose dischargeNo: Ear discharge, Ear pain, Mouth pain, Mouth swelling, Nose pain, Other, Throat pain, Throat swelling Respiratory: : Cough: Dry: SOB with excertion: Shortness of breathNo: Sputum, Wheezing Cardiovascular: : Orthopnea: Paroxysmal Noc. DyspneaNo: Chest Pain, Edema, Lt Headedness, Other, Palpitations Gastrointestinal: : Diarrhea: Nausea: VomitingNo: Abdominal Pain, Constipation Genitourinary: No Dysuria, No Frequency, No Incontinence, No Hematuria, No Retention, No Other Musculoskeletal: No: arm pain, back pain, foot pain, hand pain, leg pain, neck pain, other, shoulder pain Skin: No: Bruising, Jaundice, Lesions, Other, Rash Neurological: : Weakness Exam Exam Vital Signs Date Time Temp Pulse Resp B/P Pulse Ox O2 Delivery O2 Flow Rate FiO2 05/17/16 05:00 83 05/17/16 04:00 94 Nasal Cannula 2.00 05/17/16 04:00 99.4 87 18 178/71 96 Nasal Cannula 2.00 05/17/16 03:14 92 Room Air 05/17/16 02:15 90 151/71 05/17/16 02:00 93 Room Air 05/17/16 02:00 100.0 94 18 165/112 93 Room Air 05/17/16 01:49 101 18 95 Room Air 05/17/16 01:30 98.7 101 20 139/74 95 Room Air 05/17/16 01:00 98.9 101 20 154/77 94 Room Air 05/17/16 00:30 98.7 105 22 200/79 95 Room Air 05/17/16 00:00 98.9 101 18 224/74 96 Room Air 05/16/16 23:30 98.8 104 20 189/84 94 Room Air 05/16/16 23:00 98.6 101 20 177/80 95 Room Air 05/16/16 22:30 98.7 99 20 184/86 95 Room Air 05/16/16 22:00 98.9 100 20 184/80 94 Room Air 05/16/16 21:45 98.9 98 18 186/86 95 Room Air I & O 05/17/16 07:00 Intake Total 250 ml Balance 250 ml General Appearance: No Apparent Distress WD/WN HEENT: PERRL/EOMI Normal ENT Inspection Pharynx Normal Neck: Full Range of Motion Non Tender Supple Respiratory: Chest Non Tender Lungs Clear Normal Breath Sounds No Accessory Muscle Use No Respiratory Distress Cardiovascular: Regular Rate, Rhythm No Edema No Gallop No JVD No Murmur Capillary Refill: Less Than 3 Seconds Gastrointestinal: normal bowel sounds non tender soft no organomegaly Extremity: Normal Capillary Refill Neurologic/Psychiatric: Alert Oriented x3 No Motor/Sensory Deficits Skin: Normal Color Warm/Dry Lymphatic: No Adenopathy Results Lab Laboratory Tests 05/16/16 22:00 05/17/16 03:58 Assessment/Plan Assessment/Plan -PNeumonia -CAP probably atypical vs viral -Continue rocephin and azithromycin DKA -- improved -Will give home lantus and stop insulin gtt 2 hrs after lantus -Change IVF to NS at 100cc/hr -monitor -Advance diet to DM diet Gastroenteritis -Monitor -IVF OBesity, EDS, snoring, witnessed apnea - per Dr. Goodman -Pt needs outpt PSG Clinical Quality Measures DVT/VTE Risk/Contraindication: Risk Factor Score Per Nursin RFS Level Per Nursing on Admit: 4+=Very High EVELYN FROST DO May 17, 2016 06:42
[2016-05-17] MEDS: D5 1/2 NS W/KCL 20 MEQ/L 1,000 ML IV SCH ×2 (06:47→09:57)
[2016-05-17] MEDS: KCL 20 MEQ TAB (K-DUR) PO SCH (07:11)
[2016-05-17] MEDS: POTASSIUM CL 10MEQ/50ML IVPB 50 ML IV SCH (07:11)
[2016-05-17] MEDS: MAGNESIUM 1 GM/100 ML IVPB 100 ML IV SCH (07:11)
--- NOTE | 2016-05-17 07:19 | Diagnostic Imaging Report ---
INDICATION: Cough, shortness of air. FINDINGS: The lungs are clear. The heart and vessels normal. There is no pleural pathology. IMPRESSION: Negative. Dictated by: Dictated on workstation # [id number]
[2016-05-17 08:18] LABS: ANION GAP 11 MMOL/L (5-14); BLOOD UREA NITROGEN 19 MG/DL (7-18); BUN/CREATININE RATIO 25; CALCIUM 8.8 MG/DL (8.5-10.1); CARBON DIOXIDE 23 MMOL/L (21-32); CHLORIDE 105 MMOL/L (98-107); CREATININE SERUM 0.77 MG/DL (0.60-1.30); GFR ESTIMATED > 60; GLUCOSE 237 MG/DL (70-105); POTASSIUM 4.1 MMOL/L (3.6-5.0); SODIUM 139 MMOL/L (135-145)
--- NOTE | 2016-05-17 08:51 | Diagnostic Imaging Report ---
INDICATION: Pneumonia. COMPARISON: 05/17/2016. FINDINGS: The lungs are clear. The heart and vessels are normal. There is no effusion or pneumothorax. I IMPRESSION: Negative. Dictated by: Dictated on workstation # [id number]
[2016-05-17] MEDS: NS IV 1000 ML 1,000 ML IV SCH ×2 (09:02→19:24)
[2016-05-17] MEDS ORDERED: inSUlin ASPART (NovoLOG) 1 UNIT/0.01 ML (CHARGE PER UNIT) ONE (11:03)
[2016-05-17] MEDS: cloNIDine 0.2 MG (CATAPRES) TAB PO SCH ×2 (11:11→21:31)
[2016-05-17] MEDS: DILTIAZEM 300 MG (CARDIZEM CD) CAP PO SCH (11:11)
--- NOTE | 2016-05-17 11:33 | History & Physical-Hospitalist ---
HPI History of Present Illness: HPI/Chief Complaint upon arrival to evaluate the patient she had obvious obstructed breathing during sleep during which time her monitor alert when off with temporary saturation in the 8385 percent range. She woke easily with resolution of hypoxia. She did have audible wheezing noted without the stethoscope. She reports no previous known history of sleep apnea. She does report daytime somnolence and can fall asleep easily while reading or watching TV during the day. She reports nonrestorative sleep. She stated otherwise she was feeling well up until when she initially noted mild sore throat and head congestion. This slowly progressed over the weekend to cough which is typical for her and chest tightness. She denied chills fever or night sweats. Shortly after breakfast she noted coughing followed by nausea Tuesday morning she had a small amount of nonbloody emesis. She was feeling better by lunch time she forgot to take her shots at plan on eating a little bit later her blood sugar was 300 which she described her nausea 2. Before lunch however she had more violent episode of nausea and vomiting which persisted intermittently until 8 p.m. when they brought her to the emergency room. Toward the end she noted a very small amount of possible blood tinged emesis without any coffee-ground. She denied melena but did have several loose stools. They were without bright red blood as well Date Seen 05/17/16 Attending Physician Brittany Felipe Floyd R MD Referring Physician Date of Admission May 17, 2016 at 01:08 Home Medications & Allergies Home Medications Reviewed patient Home Medication Reconciliation Form Allergies Coded Allergies: insulin detemir (Verified Allergy, Intermediate, RASH, 04/03/16) red bumps at insertion site of injection Past Sjagfnf-Idccvm-Ylljti Hx Patient Social History Alcohol Use: Denies Use Recreational Drug Use: No Smoking Status: Never a Smoker Physical Abuse Screen: No Sexual Abuse: No Recent Foreign Travel: No Contact w/other who traveled: No Recent Hopitalizations: Yes (In ED at end of Mar with N/V.) Recent Infectious Disease Expo: No Immunizations Up To Date Tetanus Booster (TDap): Less than 5yrs Date of Pneumonia Vaccine: May 04, 2016 Date of Influenza Vaccine: Mar 03, 2016 Seasonal Allergies Seasonal Allergies: No Surgeries HX Surgeries: Yes (BREAST FIBROID 1975 REMOVED) Surgeries: Bladder Surgery, Breast, Hysterectomy Respiratory Hx Respiratory Disorders: Yes Cardiovascular Hx Cardiovascular Disorders: Yes (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 12) Cardiac Disorders: Atrial Fibrillation, High Cholesterol, Hypertension Neurological Hx Neurological Disorders: No 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 System Hx 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 Disorders: No Genitourinary Hx Genitourinary Disorders: No Gastrointestinal Hx Gastrointestinal Disorders: No Musculoskeletal Hx Musculoskeletal Disorders: No Endocrine Hx Endocrine Disorders: Yes Endocrine Disorders: Diabetes, Insulin dep, Hypothyroidsim HEENT HX ENT Disorders: No Cancer Hx Cancer: No Psychosocial Hx Psychiatric Problems: No Integumentary HX Skin/Integumentary Disorder: No Blood Transfusions Hx Blood Disorders: No Adverse Reaction to a Blood Tr: No Family Medical History Significant Family History: No Pertinent Family Hx Family Hx: Arthritis 19 FATHER 19 MOTHER Asthma 19 FATHER Cardiovascular disease 19 FATHER 19 MOTHER Cataracts 19 MOTHER Deafness or hearing loss 19 FATHER Dementia 19 MOTHER Diabetes mellitus G8 SISTER G8 SISTER Glaucoma 19 FATHER Hypertension 19 MOTHER Prostate cancer 19 FATHER Respiratory disorder 19 FATHER Thyroid disease G8 SISTER Review of Systems Constitutional: No no symptoms reported, see HPINo chills, No diaphoresis, No dizziness, No fever, No weakness, No weight gain, No weight loss Respiratory: No no symptoms reported, No see HPI, cough (nonproductive) dyspnea on exertionNo hemoptysis, No orthopnea, No phlegm, short of breathNo stridor, wheezingNo other Cardiovascular: No chest pain, No edema, No Hx of Intervention, No palpitations , No syncope, No vascular heart diseas Gastrointestinal: diarrhea nausea vomiting other (no reported abdominal pain.) Physical Exam Physical Exam Vital Signs Vital Sign - Last 12Hours 05/16/16 21:45 Temp 98.9 Pulse 98 Resp 18 B/P 186/86 Pulse Ox 95 O2 Delivery Room Air Capillary Refill : Less Than 3 Seconds General Appearance: Mild Distress Obese Neck: Full Range of Motion Normal Inspection Non Tender Supple Carotid Bruit Respiratory: Chest Non Tender Other (mild wheezing with prolonged expiratory phase she is not using accessory muscles respiration there was obvious obstructive breathing pattern is noted in history of present illness.) Extremity: Normal Inspection Normal Range of Motion Non Tender No Calf Tenderness No Pedal Edema Skin: Normal Color Warm/Dry Comments Laboratory Tests 05/16/16 22:00 05/17/16 03:58 05/17/16 07:47 Results Results/Procedures Lab Laboratory Tests 05/16/16 22:00 05/17/16 03:58 05/17/16 07:47 Assessment/Plan Admission Diagnosis 1. Atypical pneumonia likely viral in etiology with reactive airways. After discussion Dr. Bonds will continue breathing treatments and antibiotics for now we'll hold Solu-Medrol due to type II diabetes mellitus with hyperglycemia. 2. Suspect significant sleep apnea patient will be set up for sleep study per Dr. Bonds after discharge. 3. Ketosis likely due to combination of dehydration and hypoxia aggravated by number 1. There is no current evidence to suggest diabetic ketoacidosis. Will switch patient to basal bolus therapy. 4. Hypertension long-standing will continue home antihypertensive medication. Copy Copies To 1: SHELL TOVAR MD Clinical Quality Measures DVT/VTE Risk/Contraindication: Risk Factor Score Per Nursin RFS Level Per Nursing on Admit: 4+=Very High SHIMA WHEELER MD May 17, 2016 11:33
[2016-05-17] MEDS ORDERED: METOCLOPRAMIDE 10 MG (REGLAN) TAB PO PRN (11:45)
[2016-05-17] MEDS ORDERED: PATIENT MAY USE OWN MED,SINGLE MED PO SCH (11:45)
[2016-05-17] MEDS: RT-ALBUTEROL/IPRATROPIUM 3 ML (DUONEB) VIAL INH PRN (12:36)
[2016-05-17] MEDS ORDERED: doxAzosin 2 MG (CARDURA) TAB ONE (14:17)
[2016-05-17] MEDS ORDERED: FLECAINIDE 100 MG (TAMBOCOR) TAB PO ONE (14:17)
[2016-05-17] MEDS: doxAzosin 2 MG (CARDURA) TAB PO SCH ×2 (14:26→21:31)
[2016-05-17] MEDS: FLECAINIDE 100 MG (TAMBOCOR) TAB PO SCH ×2 (14:26→21:31)
[2016-05-17] MEDS: ENALAPRIL 10 MG (VASOTEC) TAB PO SCH (14:27)
[2016-05-17] MEDS: RT-ALBUTEROL/IPRATROPIUM 3 ML (DUONEB) VIAL INH SCH ×2 (15:00→20:16)
[2016-05-17] MEDS ORDERED: inSUlin ASPART (NovoLOG) 1 UNIT/0.01 ML (CHARGE PER UNIT) SC SCH (16:00)
[2016-05-17 16:31] LABS: ANION GAP 8 MMOL/L (5-14); BLOOD UREA NITROGEN 20 MG/DL (7-18); BUN/CREATININE RATIO 25; CALCIUM 8.6 MG/DL (8.5-10.1); CARBON DIOXIDE 27 MMOL/L (21-32); CHLORIDE 106 MMOL/L (98-107); CREATININE SERUM 0.79 MG/DL (0.60-1.30); GFR ESTIMATED > 60; GLUCOSE 238 MG/DL (70-105); POTASSIUM 4.4 MMOL/L (3.6-5.0); SODIUM 141 MMOL/L (135-145)
[2016-05-17] MEDS: inSUlin ASPART (NovoLOG) 1 UNIT/0.01 ML (CHARGE PER UNIT) SQ SCH (16:49)
[2016-05-17] MEDS ORDERED: cloNIDine 0.2 MG (CATAPRES) TAB PO SCH (21:00)
[2016-05-17] MEDS ORDERED: SIMvastatin 20 MG (ZOCOR) TAB PO SCH (21:00)
[2016-05-17] MEDS: DABIGATRAN 150 MG (PRADAXA) CAPSULE PO SCH (21:32)
[2016-05-18] VITALS (13 sets, daily range): BP systolic 125–188; BP diastolic 54–79
[2016-05-18] MEDS ORDERED: NORMAL SALINE (BAXTER MINI) 50 ML IV ONE (01:46)
[2016-05-18] MEDS ORDERED: cefTRIAXone 1 GM (ROCEPHIN) VIAL ONE (01:46)
[2016-05-18] MEDS ORDERED: cefTRIAXone 1 GM/NS 50 ML IVPB IV SCH ×2 (02:00)
[2016-05-18] MEDS: RT-ALBUTEROL/IPRATROPIUM 3 ML (DUONEB) VIAL INH SCH ×2 (02:21→09:51)
[2016-05-18] MEDS: NS IV 1000 ML 1,000 ML IV SCH ×2 (03:15→05:47)
[2016-05-18 03:56] LABS: BASOPHILS % (AUTO) 0 % (0-10); EOSINOPHILS # (AUTO) 0.1 10^3/uL (0.0-0.3); EOSINOPHILS % (AUTO) 1 % (0-10); LYMPHOCYTES % (AUTO) 26 % (12-44); MEAN CORPUSCULAR HEMOGLOBIN 29 PG (25-34); MEAN CORPUSCULAR HGB CONC 32 G/DL (32-36); MEAN CORPUSCULAR VOLUME 91 FL (80-99); MEAN PLATELET VOLUME 11.4 FL (7.4-10.4); MONOCYTES # (AUTO) 0.7 X 10^3 (0.0-1.0); MONOCYTES % (AUTO) 9 % (0-12); NEUTROPHILS # (AUTO) 4.8 X 10^3 (1.8-7.8); NEUTROPHILS % (AUTO) 63 % (42-75); PLATELET COUNT 220 10^3/uL (130-400); RED BLOOD COUNT 3.44 10^6/uL (4.35-5.85); RED CELL DISTRIBUTION WIDTH 14.7 % (10.0-14.5); WHITE BLOOD COUNT 7.6 10^3/uL (4.3-11.0)
[2016-05-18 04:18] LABS: ANION GAP 11 MMOL/L (5-14); BLOOD UREA NITROGEN 20 MG/DL (7-18); BUN/CREATININE RATIO 27; CALCIUM 8.2 MG/DL (8.5-10.1); CARBON DIOXIDE 20 MMOL/L (21-32); CHLORIDE 108 MMOL/L (98-107); CREATININE SERUM 0.74 MG/DL (0.60-1.30); GFR ESTIMATED > 60; GLUCOSE 225 MG/DL (70-105); PHOSPHORUS 3.8 MG/DL (2.3-4.7); POTASSIUM 4.2 MMOL/L (3.6-5.0); SODIUM 139 MMOL/L (135-145)
[2016-05-18] MEDS: RT-ALBUTEROL/IPRATROPIUM 3 ML (DUONEB) VIAL INH PRN (05:18)
[2016-05-18] MEDS: MAGNESIUM 1 GM/100 ML IVPB 100 ML IV SCH (06:00)
[2016-05-18] MEDS: POTASSIUM CL 10MEQ/50ML IVPB 50 ML IV SCH (06:00)
[2016-05-18] MEDS: KCL 20 MEQ TAB (K-DUR) PO SCH (06:00)
--- NOTE | 2016-05-18 07:14 | Pulmonary Progress Note ---
Subjective Subjective/Events-last exam No complications noted Exam Exam Vital Signs Date Time Temp Pulse Resp B/P Pulse Ox O2 Delivery O2 Flow Rate FiO2 05/18/16 06:00 85 11 157/56 97 Nasal Cannula 05/18/16 05:18 97 Nasal Cannula 2.00 05/18/16 05:00 78 14 172/66 99 Nasal Cannula 05/18/16 04:00 97.5 86 18 172/66 98 Nasal Cannula 2.00 05/18/16 04:00 97 Nasal Cannula 2.00 05/18/16 03:00 69 11 156/70 98 Nasal Cannula 05/18/16 02:21 96 Nasal Cannula 2.00 05/18/16 02:00 68 13 147/72 96 Nasal Cannula 2.00 05/18/16 01:11 68 05/18/16 01:00 58 12 136/55 98 Nasal Cannula 2.00 05/18/16 00:00 98.5 59 18 156/69 94 Nasal Cannula 2.00 05/18/16 00:00 94 Nasal Cannula 2.00 05/17/16 23:00 65 12 140/68 94 Room Air 05/17/16 22:00 74 15 139/69 98 Room Air 05/17/16 21:00 75 14 169/66 97 Room Air 05/17/16 20:16 89 Room Air 05/17/16 20:00 75 18 150/70 93 Room Air 05/17/16 20:00 96 Nasal Cannula 2.00 05/17/16 19:20 100.1 78 18 142/55 94 Room Air 05/17/16 19:00 75 05/17/16 17:00 76 16 148/60 95 Nasal Cannula 2.00 05/17/16 16:00 Nasal Cannula 2.00 05/17/16 16:00 75 16 94 Nasal Cannula 2.00 05/17/16 15:45 98.5 05/17/16 15:00 96 Nasal Cannula 0.50 05/17/16 15:00 78 22 96 Nasal Cannula 2.00 05/17/16 14:00 75 13 93 Nasal Cannula 2.00 05/17/16 13:00 80 14 160/65 92 Nasal Cannula 2.00 05/17/16 13:00 84 05/17/16 12:36 94 Nasal Cannula 0.50 05/17/16 12:00 89 18 96 Nasal Cannula 2.00 05/17/16 12:00 99.9 05/17/16 12:00 Nasal Cannula 2.00 05/17/16 11:00 95 18 95 Nasal Cannula 2.00 05/17/16 10:00 96 18 189/64 96 Nasal Cannula 2.00 05/17/16 09:00 94 20 171/78 95 Nasal Cannula 2.00 05/17/16 09:00 98.9 05/17/16 08:00 Nasal Cannula 2.00 05/17/16 08:00 93 18 153/66 94 Nasal Cannula 2.00 I & O 05/18/16 07:00 Intake Total 4136 ml Balance 4136 ml General Appearance: No Apparent Distress WD/WN Obese HEENT: PERRL/EOMI Normal ENT Inspection Pharynx Normal Neck: Full Range of Motion Normal Inspection Non Tender Supple Carotid Bruit Respiratory: Chest Non Tender Other (mild wheezing with prolonged expiratory phase she is not using accessory muscles respiration there was obvious obstructive breathing pattern is noted in history of present illness.) Cardiovascular: Regular Rate, Rhythm No Edema No Gallop No JVD No Murmur Capillary Refill: Less Than 3 Seconds Gastrointestinal: No guarding, No rebound, tenderness (epigastric) other ( obese) Extremity: Normal Inspection Normal Range of Motion Non Tender No Calf Tenderness No Pedal Edema Neurologic/Psychiatric: Alert Oriented x3 No Motor/Sensory Deficits Skin: Normal Color Warm/Dry Lymphatic: No Adenopathy Results Lab Laboratory Tests 05/16/16 22:00 05/17/16 03:58 05/17/16 07:47 05/17/16 16:08 05/18/16 03:20 Assessment/Plan Assessment/Plan -PNeumonia -CAP probably atypical vs viral -Continue rocephin and azithromycin IDDM -Will give home lantus and stop insulin gtt 2 hrs after lantus -Change IVF to NS at 100cc/hr -monitor -Advance diet to DM diet Gastroenteritis -Monitor -IVF OBesity, EDS, snoring, witnessed apnea - per Dr. Goodman -Pt needs outpt PSG Will transfer to [facility]. Pt is ok for discharge from pulmonary standpoint with omnicef and azithromycin x 5-7 days Clinical Quality Measures DVT/VTE Risk/Contraindication: Risk Factor Score Per Nursin RFS Level Per Nursing on Admit: 4+=Very High EVELYN FROST DO May 18, 2016 07:14
--- NOTE | 2016-05-18 08:11 | Diagnostic Imaging Report ---
INDICATION: Pneumonia. COMPARISON: 05/17/2016 FINDINGS: Single frontal view of the chest demonstrates normal heart size and pulmonary vascularity. The lungs are well aerated and clear. No large pleural effusion or pneumothorax is seen. The visualized osseous structures show no acute abnormalities. IMPRESSION: 1. No acute cardiopulmonary process. Dictated by: Dictated on workstation # [id number]
[2016-05-18] MEDS: inSUlin ASPART (NovoLOG) 1 UNIT/0.01 ML (CHARGE PER UNIT) SQ SCH ×2 (08:28→12:10)
[2016-05-18] MEDS: FLECAINIDE 100 MG (TAMBOCOR) TAB PO SCH (08:29)
[2016-05-18] MEDS: DILTIAZEM 300 MG (CARDIZEM CD) CAP PO SCH (08:29)
[2016-05-18] MEDS: doxAzosin 2 MG (CARDURA) TAB PO SCH (08:29)
[2016-05-18] MEDS: cloNIDine 0.2 MG (CATAPRES) TAB PO SCH (08:29)
[2016-05-18] MEDS: ENALAPRIL 10 MG (VASOTEC) TAB PO SCH (08:29)
[2016-05-18] MEDS: DABIGATRAN 150 MG (PRADAXA) CAPSULE PO SCH (08:30)
[2016-05-18] MEDS ORDERED: AZITHROMYCIN 250 MG TAB (ZITHROMAX) PO SCH (09:00)
[2016-05-18] MEDS ORDERED: LEVOTHYROXINE 100 MCG (LEVOTHROID) TAB PO SCH (09:00)
[2016-05-18] MEDS ORDERED: DILTIAZEM 300 MG (CARDIZEM CD) CAP PO SCH (09:00)
[2016-05-18] MEDS ORDERED: CEFD300C3 PO (09:10)
[2016-05-18] MEDS ORDERED: AZIT250T5 PO (09:10)
[2016-05-18] MEDS ORDERED: RT-ALBUINH IH (09:58)
--- NOTE | 2016-05-18 11:52 | Discharge Summary-Hospitalist ---
Diagnosis/Chief Complaint Date of Admission May 17, 2016 at 01:08 Date of Discharge Discharge Date: May 18, 2016 Admission Diagnosis 1. Atypical pneumonia likely viral in etiology with reactive airways. After discussion Dr. Bonds will continue breathing treatments and antibiotics for now we'll hold Solu-Medrol due to type II diabetes mellitus with hyperglycemia. 2. Suspect significant sleep apnea patient will be set up for sleep study per Dr. Bonds after discharge. 3. Ketosis likely due to combination of dehydration and hypoxia aggravated by number 1. There is no current evidence to suggest diabetic ketoacidosis. Will switch patient to basal bolus therapy. 4. Hypertension long-standing will continue home antihypertensive medication. Discharge Diagnosis 1. Atypical right lower lobe pneumonia likely viral in etiology. 2. Obstructive breathing pattern during sleep patient being set up for sleep study to evaluate for sleep apnea. 3. Hypertension 4. Paroxysmal atrial fibrillation Reason Hospital Visit/Course upon arrival to evaluate the patient she had obvious obstructed breathing during sleep during which time her monitor alert when off with temporary saturation in the 8385 percent range. She woke easily with resolution of hypoxia. She did have audible wheezing noted without the stethoscope. She reports no previous known history of sleep apnea. She does report daytime somnolence and can fall asleep easily while reading or watching TV during the day. She reports nonrestorative sleep. She stated otherwise she was feeling well up until when she initially noted mild sore throat and head congestion. This slowly progressed over the weekend to cough which is typical for her and chest tightness. She denied chills fever or night sweats. Shortly after breakfast she noted coughing followed by nausea Tuesday morning she had a small amount of nonbloody emesis. She was feeling better by lunch time she forgot to take her shots at plan on eating a little bit later her blood sugar was 300 which she described her nausea 2. Before lunch however she had more violent episode of nausea and vomiting which persisted intermittently until 8 p.m. when they brought her to the emergency room. Toward the end she noted a very small amount of possible blood tinged emesis without any coffee-ground. She denied melena but did have several loose stools. They were without bright red blood as well. Hospital course: The patient was admitted to the intensive care unit and start on IV antibiotics IV fluids and bronchodilator therapy per MAT protocol. Dr. Bonds was consulted and he is set the patient up for an office visit to set up a home sleep study to rule out significant PHILLIP which considering her body habitus and clinical scenario with hypertension and history of paroxysmal atrial fibrillation is highly likely. She had mild wheezing but tolerated ambulation prior to discharge. Dr. Bonds requested that she be sent home on antibiotic therapy in the form of azithromycin and Omnicef which we'll continue for another 5 days. She had no CVAT diarrhea during her hospital stay. She still had some mild wheezing her only other medication change was the temporary addition of albuterol HFA via MDI with the tube spacer. She was advised to follow-up with Dr. Knott and bring her home blood pressure log. Her systolic blood pressures here were not well controlled predominantly in the 150-170 range with normal diastolic pressure. She was told this very well may improve if she has significant sleep apnea and is treated with CPAP. If blood pressures remain elevated otherwise may need to consider additional diuretic therapy which she has been trying to avoid due to increased urinary frequency to begin with. UA revealed no evidence for urinary tract infection. Discharge Summary Discharge Physical Examination Allergies: Coded Allergies: insulin detemir (Verified Allergy, Intermediate, RASH, 04/03/16) red bumps at insertion site of injection Vitals & I&Os Vital Signs Date Time Temp Pulse Resp B/P Pulse Ox O2 Delivery O2 Flow Rate FiO2 05/18/16 11:14 98 Nasal Cannula 2.00 05/18/16 11:00 76 13 125/54 05/18/16 08:32 98.2 Hospital Course Labs (last 24 hrs) Laboratory Tests 05/17/16 15:43: Glucometer 203H 05/17/16 16:08: Anion Gap 8, BUN/Creatinine Ratio 25, Blood Urea Nitrogen 20H, Calcium Level 8.6 , Carbon Dioxide Level 27, Chloride Level 106, Creatinine 0.79, Estimat Glomerular Filtration Rate > 60, Glucose Level 238H, Potassium Level 4.4, Sodium Level 141 05/17/16 21:30: Glucometer 118H 05/18/16 03:20: Anion Gap 11, BUN/Creatinine Ratio 27, Blood Urea Nitrogen 20H, Calcium Level 8.2L, Carbon Dioxide Level 20L, Chloride Level 108H, Creatinine 0.74, Estimat Glomerular Filtration Rate > 60, Glucose Level 225H, Potassium Level 4.2, Sodium Level 139, Basophils # (Auto) 0.0, Basophils (%) (Auto) 0, Eosinophils # (Auto) 0.1, Eosinophils (%) (Auto) 1, Hematocrit 31L, Hemoglobin 10.0L, Lymphocytes # (Auto) 2.0, Lymphocytes (%) (Auto) 26, Magnesium Level 2.0, Mean Corpuscular Hemoglobin 29, Mean Corpuscular Hemoglobin Concent 32, Mean Corpuscular Volume 91, Mean Platelet Volume 11.4H, Monocytes # (Auto) 0.7, Monocytes (%) (Auto) 9, Neutrophils # (Auto) 4.8, Neutrophils (%) (Auto) 63, Phosphorus Level 3.8, Platelet Count 220, Red Blood Count 3.44L, Red Cell Distribution Width 14.7H, White Blood Count 7.6 Microbiology 05/16/16 Blood Culture - Preliminary, Resulted No growth 05/16/16 Influenza Types A,B Antigen (CHANTEL) - Final, Complete Discharge Home Medications: Active Scripts Active Proair Hfa (Albuterol Sulfate) 8.5 Gm Hfa.aer.ad 1-2 Puff IH Q4HR Cefdinir 300 Mg Capsule 300 Mg PO BID Azithromycin 250 Mg Tablet 250 Mg PO UD TAKE 2 TABLETS ON DAY ONE THEN TAKE 1 TABLET DAILY FOR FOUR MORE DAYS Reglan (Metoclopramide HCl) 10 Mg Tablet 10 Mg PO ACHS PRN Reported Doxazosin Mesylate 2 Mg Tablet 2 Mg PO BID Flecainide Acetate 150 Mg Tablet 150 Mg PO BID Flax Seed Oil (Flaxseed Oil) 1,000 Mg Capsule 2,000 Mg PO DAILY Enalapril Maleate 10 Mg Tablet 10 Mg PO DAILY Diltiazem Er 300 Mg (Cartia Xt) (Diltiazem HCl) 300 Mg Cap.sr.24h 300 Mg PO DAILY Pravastatin Sodium 80 Mg Tablet 40 Mg PO HS Multivitamins 1 Each Capsule 1 Each PO DAILY Lutein 10 Mg Tablet 10 Mg PO DAILY Catapres Tab (Clonidine HCl) 0.2 Mg Tab 0.2 Mg PO BID Pradaxa (Dabigatran Etexilate Mesylate) 150 Mg Capsule 150 Mg PO BID Humalog Pen (Insulin Human Lispro) 300 U/3 Ml Insuln.pen 0 SQ DAILY AC SLINDING SCALE Lantus (Insulin Glargine) 300 Units/3 Ml Soln 27 Units SQ HS Levothyroxine 100 Mcg Tab (Levothyroxine Sodium) 100 Mcg Tablet 100 Mg PO DAILY Instructions to patient/family Please see electonic discharge instructions given to patient. Clinical Quality Measures DVT/VTE Risk/Contraindication: Risk Factor Score Per Nursin RFS Level Per Nursing on Admit: 4+=Very High Copy Copies To 1: SHELL KNOTT MD, MARK D MD May 18, 2016 11:52
== END 2016-05-18 12:50 | disposition home or self-care (01) | DRG 194 ==
LOC: EDUNIT# 20:38 → ER 20:40 → ICU 05-17 01:08
PROVIDERS: ADMIT Internal Medicine; ATTEND Internal Medicine
DX: J12.9 Viral pneumonia, unspecified (principal); G47.30 Sleep apnea, unspecified; I10 Essential (primary) hypertension; I48.0 Paroxysmal atrial fibrillation; E86.0 Dehydration; E11.65 Type 2 diabetes mellitus with hyperglycemia; E66.9 Obesity, unspecified; Z68.41 Body mass index [BMI] 40.0-44.9, adult; E03.9 Hypothyroidism, unspecified
CPT/HCPCS: 36415; 71010; 74176; 80048; 80053; 81000; 82805; 82962; 83605; 83690; 83735; 84100; 84484; 85007; 85025; 85027; 87040; 87081; 87804; 94640; 96361; 96365; 96372; 96375; 96376

== ENCOUNTER → 2016-06-08 | Outpatient (CLI) | payer MEDICARE, OTHER ==
[~2016-06-08] MED LIST changes: +AZIT250T5 PO; +CEFD300C3 PO; +RT-ALBUINH IH
--- OUTSIDE RECORDS SUMMARY | 2016-06-08 11:10 | XMS REPORT | Continuity of Care Document ---
Author Author [facility] Organization [facility] Address Unknown Phone Unavailable Care Team Providers Care Dietary Aide Cook Name Role Phone SHELL TOVAR MD PCP Insurance Providers Payer Name Policy Number Subscriber Name Relationship Wps Medicare [id number] Bernadette Durham 17 Self / Same As Patient [facility] Insurance [id number] Bernadette Durham 17 Self / Same As Patient Advance Directives Directive Response Recorded Date/Time Advance Directives Yes 05/17/16 2:00am Health Care Power of Java Security Engineer Y /MARIA LUISA 05/17/16 2:00am Organ Donor No 05/17/16 2:00am Resuscitation Status Full Code 05/17/16 2:00am Chief Complaint and Reason for Visit Chief Complaint W\V\D; PNEUMONIA;DKA Reason for Visit Diabetes mellitus Need for post exposure prophylaxis for rabies RLL pneumonia Problems Active Problems Medical Problem Onset Date Status Abdominal pain Unknown Acute Bat bite of finger Unknown Acute DKA (diabetic ketoacidoses) Unknown Acute Dehydration Unknown Acute Diabetes mellitus Unknown Acute Diabetes mellitus Unknown Acute Gallbladder polyp Unknown Acute Hypertension Unknown Acute Nausea and vomiting Unknown Acute Need for post exposure prophylaxis for rabies Unknown Acute RLL pneumonia Unknown Acute Medications Current Home Medications Medication Dose Units Route Directions Days/Qty Instructions Start Date Levothyroxine Sodium (Levothroid) 100 Mcg 100 Mg Oral Daily 10/14/11 Insulin Glargine 300 Units/3 Ml 27 Units Sub-Q Bedtime 10/14/11 Insulin Human Lispro 300 U/3 Ml 0 Sub-Q Daily Ac SLINDING SCALE 15/05 Dabigatran Etexilate Mesylate 150 Mg 150 Mg Oral Twice A Day Clonidine Hcl 0.2 Mg 0.2 Mg Oral Twice A Day 11/02/11 Lutein 10 Mg 10 Mg Oral Daily 11/02/11 Multivitamins 1 Each 1 Each Oral Daily 11/02/11 Pravastatin Sodium 80 Mg 40 Mg Oral Bedtime 11/02/11 Diltiazem Hcl (Cartia Xt) 300 Mg 300 Mg Oral Daily 01/10/14 Enalapril Maleate 10 Mg 10 Mg Oral Daily 01/10/14 Flaxseed Oil 1,000 Mg 2,000 Mg Oral Daily 01/10/14 Flecainide Acetate 150 Mg 150 Mg Oral Twice A Day 01/10/14 Doxazosin Mesylate 2 Mg 2 Mg Oral Twice A Day 04/03/16 Metoclopramide Hcl 10 Mg 10 Mg Oral Before Meals And At Bedtime as needed for Nausea 30 04/04/16 Azithromycin 250 Mg 250 Mg Oral As Directed 6 TAKE 2 TABLETS ON DAY ONE THEN TAKE 1 TABLET DAILY FOR FOUR MORE DAYS 05/18/16 Cefdinir (Omnicef) 300 Mg 300 Mg Oral Twice A Day 05/18/16 Albuterol Sulfate 8.5 Gm 1-2 Puff Inhalation Give Every 4 Hrs On Schedule for Shortness Of Breath 1 05/18/16 Past Home Medications Medication Directions Ordered Status Clonidine Hcl 0.3 Mg Tablet, 1 Each Oral Twice A Day 10/14/11 Discontinued Quinapril Hcl 20 Mg Tablet, 40 Mg Oral Twice A Day 10/14/11 Discontinued Amlodipine Besylate (Norvasc 10 Mg) 10 Mg Tablet, 1 Each Oral Daily 10/14/11 Discontinued Pravastatin Sodium 80 Mg Tablet, 40 Mg Oral Daily 10/14/11 Discontinued Diltiazem Hcl (Cardizem Cd) 300 Mg Cap.sr.24h, 1 Each Oral Daily 10/15/11 Discontinued Aspirin 81 Mg Chew, 81 Mg Oral Daily 11/02/11 Discontinued Salmeterol Xinafoate 50 Mcg Disk, 0 Inhalation Daily as needed 11/02/11 Discontinued [place]-3/[place]-6/[place]-9 Fatty Acids (Lovaza) 1 Each Capsule, 2 Each Oral Daily 11/02/11 Discontinued [Maxaire] , Inhalation As Needed 01/10/14 Discontinued Ondansetron 8 Mg Tab.rapdis, 8 Mg Oral Every 6 Hours as needed for Nausea/ Vomiting 04/18/14 Discontinued Famotidine (Pepcid) 20 Mg Tablet, 1 Each Oral Twice A Day 04/18/14 Discontinued Tramadol Hcl 50 Mg Tablet, 50 Mg Oral Every 4HRS as needed for Pain 04/18/14 Discontinued Social History Social History Problem Response Recorded Date/Time Alcohol Use Denies Use 04/18/2014 12:46pm Recreational Drug Use No 04/18/2014 12:46pm Recent Foreign Travel No 05/17/2016 2:00am Recent Infectious Disease Exposure No 05/17/2016 2:00am Hospitalization with Isolation Denies 05/18/2016 2:48pm Smoking Status Never a Smoker 05/17/2016 2:00am Recent Hopitalizations Y In ED at end of Mar with N/V. 05/17/2016 2:00am Hospitalization with Isolation Denies 05/18/2016 2:48pm Query Response Start Date Stop Date Smoking Status Never a Smoker Hospital Discharge Instructions No hospital discharge instructions. Plan of Care Discharge Date 05/18/16 12:50pm Disposition 01 HOME, SELF-CARE Instructions/Education Provided Nausea and Vomiting, Adult Community-Acquired Pneumonia in Adults Prescriptions See Medication Section Referrals EVELYN FROST DO (Unspecified) - Address: [address] [place] [address] [place] [address] Reason(s) for Referral: 06/22/16 @ 10:30 SHELL TOVAR MD (Unspecified) - Address: [address] [place] [address] Reason(s) for Referral: 05/25/16 @ 10:00 Care Plan and Goals Functional Status Query Response Date Recorded Patient Orientation Person Place Time Situation Eyes Open May 18, 2016 2:48pm Comprehension Ability Understands Concepts May 18, 2016 11:14am Allergies, Adverse Reactions, Alerts Allergen Type Severity Reaction Status Last Updated insulin detemir ([id number]) Allergy Intermediate RASH Active 04/03/16 Immunizations No immunization records. Vital Signs Acute Vital Signs Vital Response Date/Time Temperature (Fahrenheit) 98.2 degrees F (97.6 - 99.5) 05/18/2016 8:32am Temperature (Calculated Celsius) 36.42641 degrees C (36.4 - 37.5) 05/18/2016 8:32am Temperature Source Temporal 05/18/2016 8:32am Pulse Rate (adult) 76 bpm (60 - 90) 05/18/2016 11:00am Respiratory Rate 13 bpm (12 - 24) 05/18/2016 11:00am O2 Sat by Pulse Oximetry 98 % (88 - 100) 05/18/2016 11:14am Blood Pressure 125/54 mm Hg 05/18/2016 11:00am Blood Pressure Mean 77 mm Hg 05/18/2016 11:00am Pain Numeric Pain Scale 0-No Pain 05/18/2016 4:00am Height (Feet) 5 feet 05/17/2016 2:00am Height (Inches) 5.00 inches 05/17/2016 2:00am Height (Calculated Centimeters) 165.638709 cm 05/17/2016 2:00am Weight (Pounds) 249 pounds 05/18/2016 6:00am Weight (Ounces) 9.0 oz 05/17/2016 2:00am Weight (Calculated Grams) 353991.501 gm 05/18/2016 6:00am Weight (Calculated Kilograms) 112.131478 kilograms 05/18/2016 6:00am Calculated BMI 41.2 05/17/2016 2:00am Capillary Refill Capillary Refill Less Than 3 Seconds 05/17/2016 1:30am Results Laboratory Results Test Name Result Units Flags Reference Collection Date/Time Result Date/ Time Comments White Blood Count 7.6 10^3/uL 4.3-11.0 05/18/2016 3:20am 05/18/2016 4: 08am Red Blood Count 3.44 10^6/uL L 4.35-5.85 05/18/2016 3:20am 05/18/2016 4: 08am Hemoglobin 10.0 G/DL L 11.5-16.0 05/18/2016 3:20am 05/18/2016 4:08am Hematocrit 31 % L 35-52 05/18/2016 3:20am 05/18/2016 4:08am Mean Corpuscular Volume 91 FL 80-99 05/18/2016 3:05/18/2016 4: 08am Mean Corpuscular Hemoglobin 29 PG 25-34 05/18/2016 3:05/18/2016 4: 08am Mean Corpuscular Hemoglobin Concent 32 G/DL 32-36 05/18/2016 3:07/2016 4:08am Red Cell Distribution Width 14.7 % H 10.0-14.5 05/18/2016 3:2016 4:08am Platelet Count 220 10^3/uL 130-400 05/18/2016 3:05/18/2016 4:08am Mean Platelet Volume 11.4 FL H 7.4-10.4 05/18/2016 3:05/18/2016 4: 08am Neutrophils (%) (Auto) 63 % 42-75 05/18/2016 3:05/18/2016 4:08am Lymphocytes (%) (Auto) 26 % 12-44 05/18/2016 3:05/18/2016 4:08am Monocytes (%) (Auto) 9 % 0-12 05/18/2016 3:05/18/2016 4:08am Eosinophils (%) (Auto) 1 % 0-10 05/18/2016 3:05/18/2016 4:08am Basophils (%) (Auto) 0 % 0-10 05/18/2016 3:05/18/2016 4:08am Neutrophils # (Auto) 4.8 X 10^3 1.8-7.8 05/18/2016 3:05/18/2016 4: 08am Lymphocytes # (Auto) 2.0 X 10^3 1.0-4.0 05/18/2016 3:05/18/2016 4: 08am Monocytes # (Auto) 0.7 X 10^3 0.0-1.0 05/18/2016 3:05/18/2016 4: 08am Eosinophils # (Auto) 0.1 10^3/uL 0.0-0.3 05/18/2016 3:05/18/2016 4 :08am Basophils # (Auto) 0.0 10^3/uL 0.0-0.1 05/18/2016 3:05/18/2016 4: 08am Neutrophils % (Manual) 93 % 05/16/2016 10:00pm 05/16/2016 10:49pm Lymphocytes % (Manual) 4 % 05/16/2016 10:00pm 05/16/2016 10:49pm Monocytes % (Manual) 3 % 05/16/2016 10:00pm 05/16/2016 10:49pm Blood Morphology Comment NORMAL 05/16/2016 10:00pm 05/16/2016 10: 49pm Urine Color YELLOW 05/16/2016 10:00pm 05/16/2016 10:28pm Urine Clarity CLEAR 05/16/2016 10:00pm 05/16/2016 10:28pm Urine pH 5 5-9 05/16/2016 10:00pm 05/16/2016 10:28pm Urine Specific [place] 1.025 * 1.016-1.022 05/16/2016 10:00pm 2016 10:28pm Urine Protein 2+ * NEGATIVE 05/16/2016 10:00pm 05/16/2016 10:28pm Urine Glucose (UA) 4+ * NEGATIVE 05/16/2016 10:00pm 05/16/2016 10:28pm Urine RBC (Auto) 3+ * NEGATIVE 05/16/2016 10:00pm 05/16/2016 10:28pm Urine Ketones 4+ * NEGATIVE 05/16/2016 10:00pm 05/16/2016 10:28pm Urine Nitrite NEGATIVE NEGATIVE 05/16/2016 10:00pm 05/16/2016 10: 28pm Urine Bilirubin NEGATIVE NEGATIVE 05/16/2016 10:00pm 05/16/2016 10: 28pm Urine Urobilinogen NORMAL MG/DL NORMAL 05/16/2016 10:00pm 05/16/2016 10 :28pm Urine Leukocyte Esterase NEGATIVE NEGATIVE 05/16/2016 10:00pm 2016 10:28pm Urine RBC NONE /HPF 05/16/2016 10:00pm 05/16/2016 10:28pm Urine WBC RARE /HPF 05/16/2016 10:00pm 05/16/2016 10:28pm Urine Bacteria TRACE /HPF 05/16/2016 10:00pm 05/16/2016 10:28pm Urine Squamous Epithelial Cells 5-10 /HPF 05/16/2016 10:00pm 2016 10:28pm Urine Crystals NONE /LPF 05/16/2016 10:00pm 05/16/2016 10:28pm Urine Casts PRESENT /LPF 05/16/2016 10:00pm 05/16/2016 10:28pm Urine Hyaline Casts 5-10 /F * 05/16/2016 10:00pm 05/16/2016 10:28pm Urine Mucus NEGATIVE /LPF 05/16/2016 10:00pm 05/16/2016 10:28pm Urine Culture Indicated NO 05/16/2016 10:00pm 05/16/2016 10:28pm Sodium Level 139 MMOL/L 135-145 05/18/2016 3:20am 05/18/2016 4:20am Potassium Level 4.2 MMOL/L 3.6-5.0 05/18/2016 3:20am 05/18/2016 4:20am Chloride Level 108 MMOL/L H 98-107 05/18/2016 3:20am 05/18/2016 4:20am Carbon Dioxide Level 20 MMOL/L L 21-32 05/18/2016 3:20am 05/18/2016 4: 20am Anion Gap 11 MMOL/L 5-14 05/18/2016 3:20am 05/18/2016 4:20am Blood Urea Nitrogen 20 MG/DL H 7-18 05/18/2016 3:20am 05/18/2016 4:20am Creatinine 0.74 MG/DL 0.60-1.30 05/18/2016 3:20am 05/18/2016 4:20am BUN/Creatinine Ratio 27 05/18/2016 3:20am 05/18/2016 4:20am Estimat Glomerular Filtration Rate > 60 05/18/2016 3:20am 2016 4:20am GFR INTERPRETIVE DATA UNITS FOR ESTIMATED GFR (eGFR): mL/min/1.73 M2 REFERENCE RANGE FOR ESTIMATED GFR (eGFR) eGFR NORMAL eGFR >60 MODERATELY DECREASED eGFR 30-59 SEVERLY DECREASED eGFR 15-29 KIDNEY FAILURE <15 (OR DIALYSIS) Glucose Level 225 MG/DL H 70-105 05/18/2016 3:20am 05/18/2016 4:20am Glucometer 289 MG/DL H 70-110 05/18/2016 11:46am 05/18/2016 12:05pm Calcium Level 8.2 MG/DL L 8.5-10.1 05/18/2016 3:20am 05/18/2016 4:20am Phosphorus Level 3.8 MG/DL 2.3-4.7 05/18/2016 3:20am 05/18/2016 4:20am Magnesium Level 2.0 MG/DL 1.8-2.4 05/18/2016 3:20am 05/18/2016 4:20am Total Bilirubin 0.5 MG/DL 0.1-1.0 05/16/2016 10:00pm 05/16/2016 10: 42pm Alkaline Phosphatase 85 U/L 40-136 05/16/2016 10:00pm 05/16/2016 10: 42pm Aspartate Amino Transf (AST/SGOT) 24 U/L 5-34 05/16/2016 10:00pm 2016 10:42pm Alanine Aminotransferase (ALT/SGPT) 22 U/L 0-55 05/16/2016 10:00pm 05/2016 10:42pm Troponin I < 0.30 NG/ML <0.30 05/16/2016 10:00pm 05/16/2016 10:45pm Total Protein 7.8 G/DL 6.4-8.2 05/16/2016 10:00pm 05/16/2016 10:42pm Albumin 4.3 G/DL 3.2-4.5 05/16/2016 10:00pm 05/16/2016 10:42pm Lipase 21 U/L 8-78 05/16/2016 10:00pm 05/16/2016 10:42pm Lactic Acid Level 0.9 MMOL/L 0.5-2.0 05/16/2016 11:00pm 05/16/2016 11: 30pm Arterial Blood pH 7.36 L 7.37-7.43 05/16/2016 10:56pm 05/16/2016 11: 26pm Arterial Blood Partial Pressure CO2 48 MMHG H 35-45 05/16/2016 10:56pm 11:26pm Arterial Blood Partial Pressure O2 36 MMHG CL 79-93 05/16/2016 10:56pm 11:26pm DONE ON VENOUS BLOOD Arterial Blood HCO3 27 MMOL/L 23-27 05/16/2016 10:56pm 05/16/2016 11: 26pm Arterial Blood Total CO2 28.2 MMOL/L 21.0-31.0 05/16/2016 10:56pm 05/16 11:26pm Arterial Blood Base Excess 0.8 MMOL/L -2.5-2.5 05/16/2016 10:56pm 05/16 11:26pm Arterial Blood Oxygen Saturation 63 % L 94-100 05/16/2016 10:56pm 2016 11:26pm DONE ON VENOUS BLOOD Blood Gas Puncture Site LEFT AC 05/16/2016 10:56pm 05/16/2016 11: 26pm Sumit Test NA 05/16/2016 10:56pm 05/16/2016 11:26pm Blood Gas Inspired Oxygen NA 05/16/2016 10:56pm 05/16/2016 11:26pm Blood Gas Ventilator Setting NO 05/16/2016 10:56pm 05/16/2016 11: 26pm Blood Gas Patient Temperature 98.8 05/16/2016 10:56pm 05/16/2016 11 :26pm Microbiology Results Procedure Source Result Collection Date/Time Result Date/Time Blood Culture Peripheral, Lt Ac No growth 05/16/2016 11:00pm 05/17/2016 2: 38pm Blood Culture Peripheral, Rt Ac No growth 05/16/2016 11:30pm 05/17/2016 2: 38pm Procedures No known history of procedures. Encounters Encounter Location Arrival/Admit Date Discharge/Depart Date Attending Provider Discharged Inpatient [facility] 05/17/16 1:08am 12:50pm HEATHER HOOKS DO Recent Diagnosis Diabetes mellitus Need for post exposure prophylaxis for rabies RLL pneumonia
[2016-06-08 11:32] LABS: BILIRUBIN,URINE NEGATIVE (NEGATIVE); KETONES,URINE NEGATIVE (NEGATIVE); LEUKOCYTE ESTERASE ,URINE 1+ (NEGATIVE); NITRITE,URINE NEGATIVE (NEGATIVE); PH,URINE 5 (5-9); PROTEIN,URINE NEGATIVE (NEGATIVE); UROBILINOGEN,URINE NORMAL (NORMAL)
[2016-06-08 11:53] LABS: SQUAMOUS EPITHELIAL CELL,UR 0-2 /HPF; WBC,URINE 0-2 /HPF
== END ==
LOC: LAB 11:06
PROVIDERS: ATTEND Internal Medicine Endocrinology, Diabetes & Metabolism
DX: E10.65 Type 1 diabetes mellitus with hyperglycemia (principal); I10 Essential (primary) hypertension; R31.29 Other microscopic hematuria
CPT/HCPCS: 36415; 81000; 82947; 83036

== ENCOUNTER → 2016-06-23 | Outpatient (CLI) | payer MEDICARE, OTHER ==
[~2016-06-23] MED LIST changes: +RT-ALBUTEROL SULF 2.5 MG/3 ML PRE-MIX VIAL INH ONE
--- OUTSIDE RECORDS SUMMARY | 2016-06-23 12:59 | XMS REPORT | Continuity of Care Document ---
Author Author [facility] Organization [facility] Address Unknown Phone Unavailable Care Team Providers Care Hardening Machine Operator Helper Name Role Phone SHELL TOVAR MD PCP Insurance Providers Payer Name Policy Number Subscriber Name Relationship Wps Medicare [id number] Bernadette Durham 17 Self / Same As Patient [facility] Insurance [id number] Bernadette Durham 17 Self / Same As Patient Advance Directives Directive Response Recorded Date/Time Advance Directives Yes 05/17/16 2:00am Health Care Power of Integrated Marketing Manager Y /MARIA LUISA 05/17/16 2:00am Organ Donor [...] 0 Inhalation Daily as needed 11/02/11 Discontinued Felt-3/Felt-6/Felt-9 Fatty Acids (Lovaza) 1 Each Capsule, 2 [...] Referrals EVELYN FROST DO (Unspecified) - Address: [address] [place] [address] [place] [address] Reason(s) for Referral: 06/22/16 @ 10:30 SHELL TOVAR MD (Unspecified) - Address: [address] [place] [address] Reason(s) for Referral: 05/25/16 @ 10:00 Care Plan and Goals Functional Status Query Response Date Recorded Patient Orientation Person Place Time Situation Eyes Open May 18, 2016 2:48pm Comprehension Ability Understands Concepts May 18, 2016 11:14am Allergies, Adverse Reactions, Alerts Allergen Type Severity Reaction Status Last Updated insulin detemir ([id number]) Allergy Intermediate RASH Active 04/03/16 Immunizations No immunization records. Vital Signs Acute Vital Signs Vital Response Date/Time Temperature (Fahrenheit) 98.2 degrees F (97.6 - 99.5) 05/18/2016 8:32am Temperature (Calculated Celsius) 36.42169 degrees C (36.4 - 37.5) 05/18/2016 8:32am [...] 5.00 inches 05/17/2016 2:00am Height (Calculated Centimeters) 165.414971 cm 05/17/2016 2:00am Weight (Pounds) 249 pounds 05/18/2016 6:00am Weight (Ounces) 9.0 oz 05/17/2016 2:00am Weight (Calculated Grams) 849430.501 gm 05/18/2016 6:00am Weight (Calculated Kilograms) 112.252598 kilograms 05/18/2016 6:00am Calculated BMI 41.2 05/17/2016 [...] 5-9 05/16/2016 10:00pm 05/16/2016 10:28pm Urine Specific [place] 1.025 * 1.016-1.022 05/16/2016 10:00pm 2016 10:28pm [...] Discharge/Depart Date Attending Provider Discharged Inpatient [facility] 05/17/16 1:08am 12:50pm HEATHER HOOKS DO Recent Diagnosis Diabetes mellitus Need for post exposure prophylaxis for rabies RLL pneumonia
--- NOTE | 2016-06-23 18:57 | Diagnostic Imaging Report ---
INDICATION: Pneumonia. PA and lateral chest obtained at 02:12 p.m. and compared with 05/18/2016. Heart and mediastinal silhouette are normal in appearance. The lungs are clear. There is no pneumothorax or pleural fluid. IMPRESSION: Negative chest. No acute infiltrate or pleural fluid. Dictated by: Dictated on workstation # [id number]
== END ==
LOC: RT 12:55
PROVIDERS: ATTEND Nurse Practitioner Family
DX: R06.02 Shortness of breath (principal); J18.9 Pneumonia, unspecified organism
CPT/HCPCS: 71020; 94060; 94640; 94726; 94729

== ENCOUNTER 2016-07-13 21:00 | Outpatient (CLI) | payer MEDICARE, OTHER ==
[~2016-07-13 21:00] MED LIST changes: -RT-ALBUTEROL SULF 2.5 MG/3 ML PRE-MIX VIAL INH ONE
--- OUTSIDE RECORDS SUMMARY | 2016-07-13 21:07 | XMS REPORT | Continuity of Care Document ---
Author Author [facility] Organization [facility] Address Unknown Phone Unavailable Care Team Providers Care Bead Worker Sewing Name Role Phone SHELL TOVAR MD PCP Insurance Providers Payer Name Policy Number Subscriber Name Relationship Wps Medicare [id number] Bernadette Durham 17 Self / Same As Patient [facility] Insurance [id number] Bernadette Durham 17 Self / Same As Patient Advance Directives Directive Response Recorded Date/Time Advance Directives Yes 05/17/16 2:00am Health Care Power of Business Unit Manager Y /MARIA LUISA 05/17/16 2:00am Organ [...] 0 Inhalation Daily as needed 11/02/11 Discontinued [place]-3/[place]-6/[place]-9 Fatty Acids (Lovaza) 1 Each Capsule, 2 [...] Referrals EVELYN FROST DO (Unspecified) - Address: [address] [place] [address] [place] [address] Reason(s) for Referral: 06/22/16 @ 10:30 SHELL TOVAR MD (Unspecified) - Address: [address] [place] [address] Reason(s) for Referral: 05/25/16 @ 10:00 Care Plan and Goals Functional Status Query Response Date Recorded Patient Orientation Person Place Time Situation Eyes Open May 18, 2016 2:48pm Comprehension Ability Understands Concepts May 18, 2016 11:14am Allergies, Adverse Reactions, Alerts Allergen Type Severity Reaction Status Last Updated insulin detemir ([id number]) Allergy Intermediate RASH Active 04/03/16 Immunizations No immunization records. Vital Signs Acute Vital Signs Vital Response Date/Time Temperature (Fahrenheit) 98.2 degrees F (97.6 - 99.5) 05/18/2016 8:32am Temperature (Calculated Celsius) 36.72990 degrees C (36.4 - 37.5) 05/18/2016 8:32am [...] 5.00 inches 05/17/2016 2:00am Height (Calculated Centimeters) 165.442921 cm 05/17/2016 2:00am Weight (Pounds) 249 pounds 05/18/2016 6:00am Weight (Ounces) 9.0 oz 05/17/2016 2:00am Weight (Calculated Grams) 162854.501 gm 05/18/2016 6:00am Weight (Calculated Kilograms) 112.090735 kilograms 05/18/2016 6:00am Calculated BMI 41.2 05/17/2016 [...] 5-9 05/16/2016 10:00pm 05/16/2016 10:28pm Urine Specific [place] 1.025 * 1.016-1.022 05/16/2016 10:00pm 2016 10:28pm [...] Discharge/Depart Date Attending Provider Discharged Inpatient [facility] 05/17/16 1:08am 12:50pm HETAHER HOOKS DO Recent Diagnosis Diabetes mellitus Need for post exposure prophylaxis for rabies RLL pneumonia
== END 2016-07-14 06:30 | disposition home or self-care (01) ==
LOC: SLEEP 21:00
PROVIDERS: ATTEND Nurse Practitioner Family
DX: G47.10 Hypersomnia, unspecified (principal); G47.50 Parasomnia, unspecified; I48.0 Paroxysmal atrial fibrillation
CPT/HCPCS: 95810

== ENCOUNTER → 2016-09-06 | Outpatient (CLI) | payer MEDICARE, OTHER ==
[2016-09-06 14:38] LABS: BASOPHILS % (AUTO) 0 % (0-10); EOSINOPHILS # (AUTO) 0.4 10^3/uL (0.0-0.3); EOSINOPHILS % (AUTO) 3 % (0-10); LYMPHOCYTES # (AUTO) 1.8 X 10^3 (1.0-4.0); LYMPHOCYTES % (AUTO) 16 % (12-44); MEAN CORPUSCULAR HEMOGLOBIN 29 PG (25-34); MEAN CORPUSCULAR HGB CONC 32 G/DL (32-36); MEAN CORPUSCULAR VOLUME 91 FL (80-99); MEAN PLATELET VOLUME 10.4 FL (7.4-10.4); MONOCYTES % (AUTO) 9 % (0-12); NEUTROPHILS # (AUTO) 8.2 X 10^3 (1.8-7.8); NEUTROPHILS % (AUTO) 72 % (42-75); PLATELET COUNT 283 10^3/uL (130-400); RED BLOOD COUNT 3.91 10^6/uL (4.35-5.85); RED CELL DISTRIBUTION WIDTH 15.2 % (10.0-14.5); WHITE BLOOD COUNT 11.4 10^3/uL (4.3-11.0)
--- NOTE | 2016-09-06 14:56 | Diagnostic Imaging Report ---
PA and lateral views of the chest Indication: Bronchitis Comparison 06/23/16 Findings: The lungs are clear of focal infiltrates. There is a mild the prominence of interstitial markings similar to the prior exam.. The heart size is mildly enlarged. There is no effusion or pneumothorax The mediastinum and amy appear unremarkable. Mild degenerative changes of the thoracic spine seen Impression: No acute process. Dictated by: Dictated on workstation # [id number]
== END ==
LOC: RAD 14:24
PROVIDERS: ATTEND Nurse Practitioner Family
DX: J20.8 Acute bronchitis due to other specified organisms (principal)
CPT/HCPCS: 36415; 71020; 85025

== ENCOUNTER → 2016-09-14 | Outpatient (CLI) | payer MEDICARE, OTHER ==
[2016-09-14 11:43] LABS: BILIRUBIN,URINE NEGATIVE (NEGATIVE); KETONES,URINE NEGATIVE (NEGATIVE); LEUKOCYTE ESTERASE ,URINE 1+ (NEGATIVE); NITRITE,URINE NEGATIVE (NEGATIVE); PH,URINE 7 (5-9); PROTEIN,URINE NEGATIVE (NEGATIVE); UROBILINOGEN,URINE NORMAL (NORMAL)
[2016-09-14 12:26] LABS: WBC,URINE 0-2 /HPF
[2016-09-14 12:27] LABS: SQUAMOUS EPITHELIAL CELL,UR 25-50 /HPF
== END ==
LOC: LAB 11:26
PROVIDERS: ATTEND Internal Medicine Endocrinology, Diabetes & Metabolism
DX: E10.65 Type 1 diabetes mellitus with hyperglycemia (principal); R31.29 Other microscopic hematuria
CPT/HCPCS: 36415; 81000; 82947; 83036

== ENCOUNTER → 2016-12-15 | Outpatient (CLI) | payer MEDICARE, OTHER ==
[2016-12-15 08:47] LABS: BILIRUBIN,URINE NEGATIVE (NEGATIVE); KETONES,URINE NEGATIVE (NEGATIVE); LEUKOCYTE ESTERASE ,URINE 1+ (NEGATIVE); NITRITE,URINE NEGATIVE (NEGATIVE); PH,URINE 5 (5-9); PROTEIN,URINE NEGATIVE (NEGATIVE); UROBILINOGEN,URINE NORMAL (NORMAL)
[2016-12-15 09:09] LABS: SQUAMOUS EPITHELIAL CELL,UR RARE /HPF
[2016-12-15 09:14] LABS: ALANINE AMINOTRANSFERASE 23 U/L (0-55); ALBUMIN 4.1 GM/DL (3.2-4.5); ANION GAP 10 MMOL/L (5-14); ASPARTATE AMINO TRANSFERASE 22 U/L (5-34); BILIRUBIN,TOTAL 0.6 MG/DL (0.1-1.0); BLOOD UREA NITROGEN 18 MG/DL (7-18); BUN/CREATININE RATIO 24; CALCIUM 9.9 MG/DL (8.5-10.1); CARBON DIOXIDE 25 MMOL/L (21-32); CHLORIDE 105 MMOL/L (98-107); CHOLESTEROL 153 MG/DL (< 200); CREATININE SERUM 0.74 MG/DL (0.60-1.30); DIRECT LDL 69 MG/DL (1-129); GFR ESTIMATED > 60; GLUCOSE 155 MG/DL (70-105); POTASSIUM 4.5 MMOL/L (3.6-5.0); SODIUM 140 MMOL/L (135-145); TOTAL PROTEIN 7.8 GM/DL (6.4-8.2); TRIGLYCERIDES 71 MG/DL (<150); VLDL CHOLESTEROL 14 MG/DL (5-40)
[2016-12-15 09:33] LABS: THYROID STIMULATING HORMONE 0.74 UIU/ML (0.35-4.94)
[2016-12-16 07:29] LABS: MICROALBUMIN/CREATININE RATIO 4.8 mg/gCR (0.0-30.0)
== END ==
LOC: LAB 08:22
PROVIDERS: ATTEND Internal Medicine Endocrinology, Diabetes & Metabolism
DX: E10.65 Type 1 diabetes mellitus with hyperglycemia (principal); E66.9 Obesity, unspecified; Z68.41 Body mass index [BMI] 40.0-44.9, adult; R31.29 Other microscopic hematuria; I10 Essential (primary) hypertension; E78.5 Hyperlipidemia, unspecified; E87.5 Hyperkalemia; E03.9 Hypothyroidism, unspecified
CPT/HCPCS: 36415; 80053; 80061; 81000; 82043; 83036; 84443

== ENCOUNTER → 2017-05-13 | Outpatient (CLI) | payer MEDICARE, OTHER ==
[~2017-05-13] MED LIST changes: +AZIT250T12 PO; -AZIT250T5 PO
--- NOTE | 2017-05-13 15:31 | Diagnostic Imaging Report ---
INDICATION: Left knee pain. COMPARISON: None. FINDINGS: Three radiographic views of the left knee were obtained and show no radiographic evidence of acute fracture or dislocation. There are degenerative changes primarily involving the patellar trochlear and medial tibiofemoral joint space. There is joint space narrowing with underlying osteophyte formations. Otherwise, joint spaces are maintained. Osseous structures are intact. No unexpected radiopaque foreign bodies are seen. IMPRESSION: 1. No radiographic evidence of acute fracture or dislocation of the left knee. 2. Mild degenerative changes. Dictated by: Dictated on workstation # [id number]
== END ==
LOC: RAD 14:51
PROVIDERS: ATTEND Nurse Practitioner Family
DX: M17.12 Unilateral primary osteoarthritis, left knee (principal)
CPT/HCPCS: 73562

== ENCOUNTER → 2017-05-24 | Outpatient (CLI) | payer MEDICARE, OTHER ==
--- NOTE | 2017-05-24 13:00 | Diagnostic Imaging Report ---
PROCEDURE: MRI left joint lower extremity without contrast. TECHNIQUE: Multiplanar, multisequence non contrast-enhanced MRI of the left lower extremity was accomplished. INDICATION: Knee pain. COMPARISON: There are no previous MRI examinations available for comparison. The plain film examination of the left knee performed on 05/13/2017 failed to show any sign of an acute abnormality. This study is less than optimal due to the patient's body habitus. FINDINGS: On the T2 sagittal series, the anterior and posterior cruciate ligaments appear to be intact. The quadriceps and infrapatellar tendons show no sign of an acute abnormality. There is no evidence for a tear of either the medial or lateral collateral ligament but there is edema/inflammation about both collateral ligaments and to a lesser extent about the biceps femoris tendon and the iliotibial band. There is no sign of an injury to the medial or lateral retinaculum. The menisci are not particularly well-visualized. The posterior horn and midportion of the lateral meniscus are most likely torn and have degenerated. The midportion of the medial meniscus is felt to be torn as well. There is no abnormal signal arising from the osseous structures to indicate bone edema or fracture. There is at least moderate degenerative disease of the articular surfaces of the medial femoral condyle and lateral femoral condyle and there is narrowing of the lateral aspect of the patellofemoral space. There is also a small joint effusion present and a small Love's cyst. In addition, there is mild edema/inflammation of the soft tissues along the medial and posterior aspect of the knee joint. IMPRESSION: 1. The major ligaments and tendons are intact but there is mild edema about both collateral ligaments. 2. The menisci are not well visualized. Even so, both menisci appear to be torn. This is probably due on a degenerative basis. 3. There is no sign of an acute bony abnormality. There is degenerative disease involving the articular surfaces of the femoral condyles and there is narrowing of the lateral aspect of the patellofemoral space. 4. There is a small joint effusion present. A small Love's cyst is also seen. Dictated by: Dictated on workstation # [id number]
== END ==
LOC: RAD 10:49
PROVIDERS: ATTEND Family Medicine
DX: M25.462 Effusion, left knee (principal); M23.8X2 Other internal derangements of left knee; M71.22 Synovial cyst of popliteal space [Baker], left knee
CPT/HCPCS: 73721

== ENCOUNTER → 2017-06-20 | Outpatient (CLI) | payer MEDICARE, OTHER ==
[2017-06-20 15:14] LABS: BILIRUBIN,URINE NEGATIVE (NEGATIVE); CLARITY,URINE CLEAR; COLOR,URINE YELLOW; GLUCOSE, URINE (UA) NEGATIVE (NEGATIVE); KETONES,URINE NEGATIVE (NEGATIVE); LEUKOCYTE ESTERASE ,URINE NEGATIVE (NEGATIVE); NITRITE,URINE NEGATIVE (NEGATIVE); PH,URINE 6 (5-9); PROTEIN,URINE 1+ (NEGATIVE); UROBILINOGEN,URINE NORMAL (NORMAL)
[2017-06-20 15:30] LABS: BACTERIA,URINE TRACE /HPF; RBC,URINE RARE /HPF; WBC,URINE RARE /HPF
== END ==
LOC: LAB 14:51
PROVIDERS: ATTEND Internal Medicine Endocrinology, Diabetes & Metabolism
DX: E10.65 Type 1 diabetes mellitus with hyperglycemia (principal)
CPT/HCPCS: 36415; 81000; 82947; 83036

== ENCOUNTER 2017-08-01 13:19 | Outpatient (CLI) | payer MEDICARE, OTHER ==
[~2017-08-01] VITALS: Ht 165.1 cm; Wt 102.1 kg
[2017-08-01 13:50] VITALS: BP 127/66
[2017-08-01] MEDS ORDERED: FLAX1000 PO (16:27)
[2017-08-01] MEDS ORDERED: PRAV40TA2 PO (16:27)
[2017-08-01] MEDS ORDERED: TRAM50TA2 PO (16:27)
[2017-08-01] MEDS ORDERED: CLON0.2T PO (16:27)
[2017-08-01] MEDS ORDERED: INSU100V6 SQ (16:27)
[2017-08-01] MEDS ORDERED: CETI10TA17 PO (16:27)
[2017-08-01] MEDS ORDERED: MULT1TAB69 PO (16:27)
[2017-08-01] MEDS ORDERED: LEVO100T7 PO (16:27)
[2017-08-01] MEDS ORDERED: LUTE6CAP2 PO (16:27)
[2017-08-01] MEDS ORDERED: MONT10TA24 PO (16:27)
[2017-08-01] MEDS ORDERED: FLEC150T15 PO (16:27)
[2017-08-01] MEDS ORDERED: OMEP40CA36 PO (16:27)
[2017-08-01] MEDS ORDERED: TERB250T16 PO (16:27)
[2017-08-01] MEDS ORDERED: PAMI30VI8 SQ (16:27)
[2017-08-01] MEDS ORDERED: APIX5TAB PO (16:27)
[2017-08-01] MEDS ORDERED: ENAL10TA PO (16:27)
[2017-08-01] MEDS ORDERED: DILT300C26 PO (16:27)
== END 2017-08-01 14:23 ==
LOC: PREOP 13:19
PROVIDERS: ATTEND Orthopaedic Surgery
DX: Z01.810 Encounter for preprocedural cardiovascular examination (principal); Z11.2 Encounter for screening for other bacterial diseases; M17.11 Unilateral primary osteoarthritis, right knee
CPT/HCPCS: 87081; 93005

== ENCOUNTER 2017-08-03 06:30 | Day surgery (SDC) | payer MEDICARE, OTHER ==
[~2017-08-03] VITALS: Ht 165.1 cm; Wt 102.1 kg
[~2017-08-03 06:30] MED LIST changes: +APIX5TAB PO; +CETI10TA17 PO; +CLON0.2T PO; +DILT300C26 PO; +FLAX1000 PO; +FLEC150T15 PO; +INSU100V6 SQ; +LEVO100T7 PO; +LUTE6CAP2 PO; +MONT10TA24 PO; +MULT1TAB69 PO; +OMEP40CA36 PO; +PAMI30VI8 SQ; +PRAV40TA2 PO; +TERB250T16 PO
[2017-08-03 07:15] VITALS: BP 181/69
[2017-08-03] MEDS ORDERED: ceFAZolin 1,000 MG (ANCEF) VIAL ONE (07:23)
[2017-08-03] MEDS ORDERED: NS (IVPB) 100 ML ONE (07:23)
--- NOTE | 2017-08-03 07:23 | Progress Note-Pre Operative ---
Pre-Operative Progress Note H&P Reviewed The H&P was reviewed, patient examined and no changes noted. 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
--- NOTE | 2017-08-03 07:24 | Progress Note-Post Operative ---
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
[2017-08-03] MEDS: LACTATED RINGERS 1,000 ML IV PRN ×2 (07:25→09:45)
[2017-08-03] MEDS ORDERED: HYDR-3062 PO (07:26)
[2017-08-03] MEDS ORDERED: inSUlin ASPART (NovoLOG) 1 UNIT/0.01 ML (CHARGE PER UNIT) IV ONE ×2 (07:30→08:15)
[2017-08-03] MEDS ORDERED: ceFAZolin 1 GM/NS 100 ML IVPB IV ONE ×2 (07:30)
[2017-08-03] MEDS ORDERED: HYDROcodone/APAP 5 MG/325 MG (LORTAB) TAB PO PRN (07:30)
[2017-08-03] MEDS ORDERED: morphine PF (DURAMORPH) 10 MG/10 ML AMP ONE (08:01)
[2017-08-03] MEDS ORDERED: BUPIVACAINE 0.25% 30 ML (SENSORCAINE) VIAL ONE (08:02)
[2017-08-03] MEDS ORDERED: fentaNYL INJECTION 100 MCG/2 ML AMP ONE (08:03)
[2017-08-03] MEDS ORDERED: LIDOCAINE PF 2% 5 ML (XYLOCAINE) VIAL ONE (08:03)
[2017-08-03] MEDS ORDERED: ONDANSETRON 4 MG/2 ML (SDV) Z0FRAN ONE (08:03)
[2017-08-03] MEDS ORDERED: proPOfol 200 MG/20 ML (DIPRIVAN) VIAL IV ONE (08:03)
[2017-08-03] MEDS ORDERED: MIDAZOLAM 2 MG/2 ML (VERSED) VIAL ONE (08:03)
[2017-08-03] MEDS ORDERED: SEVOFLURANE (ULTANE) 15 ML INHAL SOLN ONE (08:03)
[2017-08-03] MEDS ORDERED: ceFAZolin INJECTION 1,000 MG in NS (IVPB) 100 ML IV ONE (08:30)
[2017-08-03] MEDS: morphine INJ 10 MG/ML 1ML (SYR OR VIAL) IVP PRN ×2 (09:15→09:34)
[2017-08-03] MEDS ORDERED: ONDANSETRON 4 MG/2 ML (SDV) Z0FRAN IVP PRN (09:30)
[2017-08-03] MEDS ORDERED: HYDROmorphone (DILAUDID) 2 MG/ML VIAL ONE (09:40)
[2017-08-03] MEDS: HYDROmorphone (DILAUDID) 2 MG/ML VIAL IVP PRN ×2 (09:45→09:55)
[2017-08-03 10:15] VITALS: BP 181/63
[2017-08-03 10:45] VITALS: BP_SYST 151; BP_SYST 164; BP_DIAS 54; BP_DIAS 59
[2017-08-03 11:15] VITALS: BP 164/54
--- NOTE | 2017-08-03 11:40 | Anesthesia-General Post-Op ---
General Patient Condition Mental Status/LOC: Same as Preop Cardiovascular: Satisfactory Nausea/Vomiting: Absent Respiratory: Satisfactory Pain: Controlled Complications: Absent Post Op Complications Complications None Follow Up Care/Instructions Patient Instructions None needed. Anesthesia/Patient Condition Patient Condition Patient is doing well, no complaints, stable vital signs, no apparent adverse anesthesia problems. No complications reported per nursing. DONNA HUGHES CRNA Aug 03, 2017 11:40
--- NOTE | 2017-08-03 11:44 | Physical Therapy Ortho Eval ---
PT Orthopedic Evaluation Type of Surgery Knee Scope right side WBAT Prior Level of Function Current Living Status: Spouse Locomotion (Upon Admit): Straight Cane Subjective Subjective Patient in bed pre tx, agrees to PT, has pain of 4/10 in right knee. States she is dizzy and nauseated. Entry Into Home: Stairs With Railing Steps Into Home: 3 Objective Objective right knee flexion 80 degrees, extension +5 degrees Motor Control Motor Control: Motor Control WNL Strength NT Transfer Transfers (B, C, W/C) (FIM): 5 Gait Gait Assistive Device: FWW Right Lower Extremity: Right Weight Bearing Status RLE: Weight Bearing/Tolerated Left Lower Extremity: Left Weight Bearing Status LLE: Full Weight Bearing Gait (FIM): 1 Distance: 30' Gait Level of Assist: 4 (CGA) Summary/Comments Patient ambulated outside of her room door and turned around and came back to bed. She was too nauseated and dizzy to go any further or try a step. Treatment Rendered Treatment: Therapeutic Exercises, Gait Train Exercise Instruction: Quad Sets, Heel Slides, Ankle Pumps Assessment/Goals Goal Time Frame: 1 Visit Plan Treatment Plan: Discharge PT/Family Agrees to Plan: Yes Time Time In: 1115 Time Out: 1135 Total Billed Treatment Time: 20 Billed Treatment Time 1 visit EVL 20' Yes PT/OT Therapy GCodes Therapy Functional Limitation: Physical Therapy Test(s)/Tool used to determine: Level of Assistance Scale Functional Limitation-Current Charge Code: MOBCUR Modifier: CI Functional Limitation-Goal Charge Code: MOBGOAL Modifier: CI Functional Limitation-D/C Charge Codes: MOBDC Modifier: CI CHARLOTTE STEINER PT Aug 03, 2017 11:43
--- NOTE | 2017-08-03 11:44 | OPERATIVE REPORT ---
DATE OF SERVICE: 08/03/2017 PREOPERATIVE DIAGNOSES: 1. Right knee medial meniscal tear. 2. Right knee lateral meniscal tear. 3. Right knee chondromalacia medial femoral condyle. 4. Right knee chondromalacia lateral femoral condyle. POSTOPERATIVE DIAGNOSES: 1. Right knee medial meniscal tear. 2. Right knee lateral meniscal tear. 3. Right knee chondromalacia medial femoral condyle. 4. Right knee chondromalacia lateral femoral condyle. 5. Right knee chondromalacia of the lateral tibial plateau. PROCEDURES: 1. Right knee arthroscopic partial medial meniscectomy. 2. Right knee arthroscopic partial lateral meniscectomy. 3. Right knee arthroscopic chondroplasty of the medial femoral condyle. 4. Right knee arthroscopic chondroplasty of the lateral femoral condyle. 5. Right knee arthroscopic chondroplasty of the lateral tibial plateau. SURGEON: Rosalina Valdes MD SPRAY DYER: None. ANESTHESIA: General endotracheal by Dr. Mcdonald. TOURNIQUET TIME: Not applicable. ESTIMATED BLOOD LOSS: Minimal. DRAINS: None. COMPLICATIONS: None. POSTOPERATIVE PLAN: Routine arthroscopy protocol. The patient was transferred to the recovery room in awake and stable condition. STATEMENT OF MEDICAL NECESSITY: The patient is a 67-year-old female with complaints of right knee pain, catching and locking. She was tender along both her medial and lateral joint line. She had pain medially with Deborah's. No varus or valgus laxity. She had patellofemoral crepitus. Tenderness along her medial and lateral femoral condyles. She had failed to respond to conservative measures including activity modifications, anti-inflammatories and injections. Due to functional impairment and failure to improve with conservative measures, the patient elected to proceed with surgical intervention. Examination under anesthesia revealed range of motion 0/0/130 with negative Prashant, negative anterior and posterior drawer. No varus or valgus laxity, negative pivot shift. Arthroscopic findings, the patella demonstrated diffuse grade IV chondral loss centrally in a 20 x 20 area with no unstable chondral flaps. The trochlea demonstrated grade II chondral loss with no unstable chondral flaps. The medial and lateral gutters were clear. The lateral compartment demonstrated a complex tear of the lateral meniscus involving approximately 50% of the anterior horn and body. In addition, grade II chondral flaps of the central portion of the tibial plateau in a 10 x 10 area and grade III chondral flap over the lateral aspect of the weightbearing portion of the femoral condyle in a 10 x 10 area. The ACL and PCL were intact. The medial compartment demonstrated a degenerative tear of the posterior horn involving approximately 1/3rd of the posterior horn of the meniscus. In addition, there were grade II chondral flaps of the central weightbearing portion of the femoral condyle in an 8 x 8 area. DESCRIPTION OF PROCEDURE: After risks and benefits of the procedure were discussed and questions were answered and informed consent was signed and placed in chart. The operative site was confirmed in the preoperative holding area initialed by surgeon. The patient then transported to the operating room and after adequate levels of general endotracheal anesthetic were obtained, a timeout was called confirming the operative site. Examination under anesthesia was performed with the above findings noted. The right lower extremity was prepped and draped in the usual sterile fashion. The knee joint was injected with 60 mL of fluid. Standard inferolateral portals were placed with the arthroscope in a rectus position an inferior medial portal was created. The menisci cruciates carefully probed with the above findings noted. The unstable chondral flaps on the lateral femoral condyle were debrided with shaver back to a stable edge. Then, stable chondral flaps and lateral tibial plateau were debrided with the shaver back to a stable edge and the anterior horn and body of the lateral meniscus were debrided with the shaver removing approximately 50% of the anterior horn and body. This was carefully probed with no further tearing or instability noted. The scope was then redirected into the medial compartment. The unstable chondral flaps on the medial femoral condyle were debrided with the shaver back to a stable edge. The posterior horn of the medial meniscus was debrided biter and shaver removed approximately 1/3rd of the posterior horn and stable chondral flaps of the medial femoral condyle were debrided shaving back to a stable edge as well. The knee was copiously irrigated. Portal sites were closed with 3-0 nylon in simple interrupted fashion. She was injected with Duramorph. The portal sites were infiltrated with plain Marcaine. A soft dressing was applied and the patient transferred to the recovery room awake and in stable condition. Job ID: [id number] DocumentID: [id number] Dictated Date: 08/03/2017 09:15:20 Manager Social Work Date: 08/03/2017 11:43:46 Dictated By: ROSALINA VALDES MD
[2017-08-03 11:52] VITALS: BP 164/54
== END 2017-08-03 11:52 | disposition home or self-care (01) ==
LOC: SDC 06:30
PROVIDERS: ATTEND Orthopaedic Surgery
DX: M23.8X1 Other internal derangements of right knee (principal); M94.261 Chondromalacia, right knee; I10 Essential (primary) hypertension; E78.5 Hyperlipidemia, unspecified; I48.91 Unspecified atrial fibrillation; J45.909 Unspecified asthma, uncomplicated; G47.33 Obstructive sleep apnea (adult) (pediatric); K21.9 Gastro-esophageal reflux disease without esophagitis; E11.9 Type 2 diabetes mellitus without complications; Z79.899 Other long term (current) drug therapy; Z88.8 Allergy status to other drugs, medicaments and biological substances
CPT/HCPCS: 82962

== ENCOUNTER 2017-09-22 11:25 | Outpatient (CLI) | payer MEDICARE, OTHER ==
[~2017-09-22] VITALS: Ht 165.1 cm; Wt 96.2 kg
[~2017-09-22 11:25] MED LIST changes: +HYDR-3062 PO
== END 2017-09-22 12:41 | disposition home or self-care (01) ==
LOC: PREOP 11:25
PROVIDERS: ATTEND Orthopaedic Surgery
DX: Z01.818 Encounter for other preprocedural examination (principal); M23.8X2 Other internal derangements of left knee
CPT/HCPCS: 87081

== ENCOUNTER 2017-09-27 08:59 | Emergency (ER) | payer MEDICARE, OTHER ==
[~2017-09-27] VITALS: Ht 165.1 cm; Wt 96.2 kg
--- OUTSIDE RECORDS SUMMARY | 2017-09-27 09:07 | XMS REPORT | Continuity of Care Document ---
Author Author [facility] Organization [facility] Address Unknown Phone Unavailable Allergies Active Description Code Type Severity Reaction Onset Reported/Identified Relationship to Patient Clinical Status Yes No Known Drug Allergies [id number] Drug Allergy Unknown N/A 10/14/2011 Yes insulin detemir [id number] Drug Allergy Moderate RASH 09/22/2017 Medications There is no data. Problems Date Dx Coded Attending Type Code Diagnosis Diagnosed By 10/15/2011 Ot 244.9 HYPOTHYROIDISM NOS 10/15/2011 Ot 250.00 DIAB [place] WO COMPL, TYPE II OR UNSPEC TY 10/15/2011 Ot 401.9 HYPERTENSION NOS 10/15/2011 Ot 427.32 ATRIAL FLUTTER 10/15/2011 Ot V58.67 LONG-TERM ( CURRENT) USE OF INSULIN 04/01/2014 ABIGAIL CURRY, JAYNE Platt Ot V76.12 04/01/2014 VIC CURRY, CAMERON Ot 250.03 04/01/2014 VIC CURRY, CAMERON Ot 276.7 04/01/2014 VIC CURRY, CAMERON Ot 401.1 04/01/2014 VIC CURRY, CAMERON Ot V58.69 04/01/2014 VIC CURRY, CAMERON Ot 244.8 04/01/2014 VIC CURRY, CAMERON Ot 250.03 04/01/2014 VIC CURRY, CAMERON Ot 272.4 04/01/2014 VIC CURRY, CAMERON Ot 276.7 04/01/2014 VIC CURRY, CAMERON Ot 401.1 04/01/2014 VIC CURRY, CAMERON Ot V58.69 04/08/2014 VIC CURRY, CAMERON Ot 599.72 04/13/2014 KARTIK BRANDT APRN Ot V04.5 04/18/2014 VIC CURRY, CAMERON Ot 244.8 04/18/2014 VIC CURRY, CAMERON Ot 250.03 04/18/2014 VIC CURRY, CAMERON Ot 272.4 04/18/2014 VIC CURRY, CAMERON Ot 276.7 04/18/2014 VIC CURRY, CAMERON Ot 401.1 04/18/2014 IVC CURRY, CAMERON Ot V58.69 04/18/2014 VIC CURRY, CAMERON Ot 599.72 04/18/2014 KARTIK BRANDT APRN Ot V04.5 04/18/2014 BOB DUNCAN, AURORA L Ot 250.00 04/18/2014 BOB DUNCAN, AURORA L Ot 276.51 04/18/2014 BOB DUNCAN, AURORA L Ot 401.9 04/18/2014 BOB DUNCAN, AURORA L Ot 575.6 04/18/2014 BOB DUNCAN, AURORA L Ot 787.01 04/18/2014 BOB DUNCAN, AURORA L Ot 789.06 04/18/2014 BOB DUNCAN, AURORA L Ot V58.69 04/29/2014 VIC CURRY, CAMERON Ot 244.8 04/29/2014 VIC CURRY, CAMERON Ot 250.03 04/29/2014 VIC CURRY, CAMERON Ot 272.4 04/29/2014 VIC CURRY, CAMERON Ot 276.7 04/29/2014 IVC CURRY, CAMERON Ot 401.1 04/29/2014 VIC CURRY, CAMERON Ot V58.69 05/13/2014 VIC CURRY, CAMERON Ot 244.8 05/13/2014 VIC CURRY, CAMERON Ot 250.03 05/13/2014 VIC CURRY, CAMERON Ot 272.4 05/13/2014 VIC CURRY, CAMERON Ot 276.7 05/13/2014 VIC CURRY, CAMERON Ot 401.1 05/13/2014 VIC CURRY, CAMERON Ot V58.69 06/11/2014 BOB DUNCAN, AUORRA L Ot 787.01 06/11/2014 BOB PA, AURORA L Ot 789.01 06/11/2014 BOB DUNCAN, AURORA L Ot 789.06 07/04/2014 VIC CURRY, CAMERON Ot 244.8 07/04/2014 VIC CURRY, CAMERON Ot 250.03 07/04/2014 VIC CURRY, CAMERON Ot 272.4 07/04/2014 VIC CURRY, CAMERON Ot 276.7 07/04/2014 VIC CURRY, CAMERON Ot 401.1 07/04/2014 VIC CURRY, CAMERON Ot V58.69 07/04/2014 VIC CURRY, CAMERON Ot 599.72 07/04/2014 BRANDTKARTIK APRN Ot V04.5 07/04/2014 AURORA DENNEY Ot 787.01 07/04/2014 AURORA DENNEY Ot 789.01 07/04/2014 AURORA DENNEY L Ot 789.06 07/10/2014 Ot 250.03 07/10/2014 Ot 599.72 11/07/2014 VIC CURRY, CAMERON Ot 250.03 11/07/2014 VIC CURRY, CAMERON Ot 401.1 2015 VIC CURRY, CAMERON Ot 250.03 2015 VIC CURRY, CAMERON Ot 599.72 05/27/2015 VIC CURRY, CAMERON Ot E03.9 05/27/2015 VIC CURRY, CAMERON Ot E10.65 05/27/2015 VIC CURRY, CAMERON Ot E66.9 05/27/2015 VIC CURRY, CAMERON Ot E78.5 05/27/2015 VIC CURRY, CAMERON Ot E87.6 05/27/2015 VIC CURRY, CAMERON Ot R31.2 05/27/2015 VIC CURRY, CAMERON Ot Z79.899 08/13/2015 VIC CURRY, CAMERON Ot E03.9 08/13/2015 VIC CURRY, CAMERON Ot E10.65 08/13/2015 VIC CURRY, CAMERON Ot E78.5 08/13/2015 VIC CURRY, CAMERON Ot E87.5 08/13/2015 VIC CURYR, CAMERON Ot I10 08/13/2015 VIC CURRY, CAMERON Ot Z79.899 09/04/2015 VIC CURRY, CAMERON Ot E03.9 HYPOTHYROIDISM, UNSPECIFIED 09/04/2015 VIC CURRY, CAMERON Ot E10.65 TYPE 1 DIABETES MELLITUS WITH HYPERGLYCE 09/04/2015 VIC CURRY, CAMERON Ot E78.5 HYPERLIPIDEMIA, UNSPECIFIED 09/04/2015 VIC CURRY, CAMERON Ot E87.5 HYPERKALEMIA 09/04/2015 VIC CURRY, CAMERON Ot I10 ESSENTIAL (PRIMARY) HYPERTENSION 09/04/2015 VIC CURRY, CAMERON Ot Z79.899 OTHER RN CARDIAC CATH (CURRENT) DRUG THERAPY 11/21/2015 CAMERON HO MD Ot E03.9 HYPOTHYROIDISM, UNSPECIFIED 11/21/2015 CAMERON HO MD Ot E10.65 TYPE 1 DIABETES MELLITUS WITH HYPERGLYCE 11/21/2015 CAMERON HO MD Ot E66.9 OBESITY, UNSPECIFIED 11/21/2015 CAMERON HO MD Ot E78.5 HYPERLIPIDEMIA, UNSPECIFIED 11/21/2015 CAMERON HO MD Ot E87.5 HYPERKALEMIA 11/21/2015 CAMERON HO MD Ot Z79.899 OTHER [facility] (CURRENT) DRUG THERAPY 12/25/2015 CAMERON HO MD Ot E03.9 HYPOTHYROIDISM, UNSPECIFIED 12/25/2015 CAMERON HO MD Ot E10.65 TYPE 1 DIABETES MELLITUS WITH HYPERGLYCE 12/25/2015 CAMERON HO MD Ot E66.9 OBESITY, UNSPECIFIED 12/25/2015 CAMERON HO MD Ot E78.5 HYPERLIPIDEMIA, UNSPECIFIED 12/25/2015 CAMERON HO MD Ot E87.5 HYPERKALEMIA 12/25/2015 CAMERON HO MD Ot Z79.899 OTHER RN CARDIAC CATH (CURRENT) DRUG THERAPY 03/17/2016 CAMERON HO MD Ot E10.65 TYPE 1 DIABETES MELLITUS WITH HYPERGLYCE 04/03/2016 CAMERON HO MD Ot 599.72 MICROSCOPIC HEMATURIA 04/03/2016 KARTIK BRANDT DEPLOYMENT MANAGER Ot V04.5 VACCIN FOR RABIES 04/04/2016 GUY CURRY, SHELL R Ot D64.9 ANEMIA, UNSPECIFIED 04/04/2016 GUY CURRY, SHELL R Ot E03.9 HYPOTHYROIDISM, UNSPECIFIED 04/04/2016 GUY CURRY, SHELL R Ot E10.9 TYPE 1 DIABETES MELLITUS WITHOUT COMPLIC 04/04/2016 GUY CURRY, SHELL R Ot E66.9 OBESITY, UNSPECIFIED 04/04/2016 GUY CURRY, SHELL R Ot E78.5 HYPERLIPIDEMIA, UNSPECIFIED 04/04/2016 GUY CURRY, SHELL R Ot I10 ESSENTIAL (PRIMARY) HYPERTENSION 04/04/2016 GUY CURRY, SHELL R Ot I48.91 UNSPECIFIED ATRIAL FIBRILLATION 04/04/2016 GUY CURRY, SHELL R Ot R11.2 NAUSEA WITH VOMITING, UNSPECIFIED 05/18/2016 HOOKS DO, HEATHER Ot E03.9 HYPOTHYROIDISM, UNSPECIFIED 05/18/2016 HOOKS DO, HEATHER Ot E11.65 TYPE 2 DIABETES MELLITUS WITH HYPERGLYCE 05/18/2016 HOOKS DO, HEATHER Ot E66.9 OBESITY, UNSPECIFIED 05/18/2016 HOOKS DO, HEATHER Ot E86.0 DEHYDRATION 05/18/2016 HOOKS DO, HEATHER Ot G47.30 SLEEP APNEA, UNSPECIFIED 05/18/2016 HOOKS DO, HEATHER Ot I10 ESSENTIAL (PRIMARY) HYPERTENSION 05/18/2016 HOOKS DO, HEATHER Ot I48.0 PAROXYSMAL ATRIAL FIBRILLATION 05/18/2016 HOOKS DO, HEATHER Ot J12.9 VIRAL PNEUMONIA, UNSPECIFIED 05/18/2016 HOOKS DO, HEATHER Ot Z68.41 BODY MASS INDEX (BMI) 40.0-44.9, ADULT 06/08/2016 CAMERON HO MD Ot 250.03 DIAB [place] WO COMPL, TYPE I [JUVENILE TYP 06/08/2016 CAMERON HO MD Ot 599.72 MICROSCOPIC HEMATURIA 06/08/2016 CAMERON HO MD Ot E03.9 HYPOTHYROIDISM, UNSPECIFIED 06/08/2016 CAMERON HO MD Ot E10.65 TYPE 1 DIABETES MELLITUS WITH HYPERGLYCE 06/08/2016 CAMERON HO MD Ot E66.9 OBESITY, UNSPECIFIED 06/08/2016 CAMERON HO MD Ot E78.5 HYPERLIPIDEMIA, UNSPECIFIED 06/08/2016 CAMERON HO MD Ot E87.6 HYPOKALEMIA 06/08/2016 CAMERON HO MD Ot R31.2 OTHER MICROSCOPIC HEMATURIA 06/08/2016 CAMERON HO MD Ot Z79.899 OTHER [facility] (CURRENT) DRUG THERAPY 06/08/2016 CAMERON HO MD Ot E03.9 HYPOTHYROIDISM, UNSPECIFIED 06/08/2016 CAMERON HO MD Ot E10.65 TYPE 1 DIABETES MELLITUS WITH HYPERGLYCE 06/08/2016 CAMERON HO MD Ot E78.5 HYPERLIPIDEMIA, UNSPECIFIED 06/08/2016 CAMERON HO MD Ot E87.5 HYPERKALEMIA 06/08/2016 CAMERON HO MD Ot I10 ESSENTIAL (PRIMARY) HYPERTENSION 06/08/2016 CAMERON HO MD Ot Z79.899 OTHER [facility] (CURRENT) DRUG THERAPY 06/08/2016 CAMERON HO MD Ot E03.9 HYPOTHYROIDISM, UNSPECIFIED 06/08/2016 CAMERON HO MD Ot E10.65 TYPE 1 DIABETES MELLITUS WITH HYPERGLYCE 06/08/2016 CAMERON HO MD Ot E66.9 OBESITY, UNSPECIFIED 06/08/2016 CAMERON HO MD Ot E78.5 HYPERLIPIDEMIA, UNSPECIFIED 06/08/2016 CAMERON HO MD Ot E87.5 HYPERKALEMIA 06/08/2016 CAMERON HO MD Ot Z79.899 OTHER RN CARDIAC CATH (CURRENT) DRUG THERAPY 06/08/2016 CAMERON HO MD Ot E10.65 TYPE 1 DIABETES MELLITUS WITH HYPERGLYCE 06/24/2016 BEA COLEMAN DEPLOYMENT MANAGER Ot J18.9 PNEUMONIA, UNSPECIFIED ORGANISM 06/24/2016 BEA COLEMAN DEPLOYMENT MANAGER Ot R06.02 SHORTNESS OF BREATH 06/24/2016 BEA COLEMAN DEPLOYMENT MANAGER Ot J18.9 PNEUMONIA, UNSPECIFIED ORGANISM 06/24/2016 BEA COLEMAN DEPLOYMENT MANAGER Ot R06.02 SHORTNESS OF BREATH 07/06/2016 CAMERON HO MD Ot E10.65 TYPE 1 DIABETES MELLITUS WITH HYPERGLYCE 07/06/2016 CAMERON HO MD Ot I10 ESSENTIAL (PRIMARY) HYPERTENSION 07/06/2016 CAMERON HO MD Ot R31.29 OTHER MICROSCOPIC HEMATURIA 07/13/2016 BEA COLEMAN DEPLOYMENT MANAGER Ot G47.10 HYPERSOMNIA, UNSPECIFIED 07/13/2016 BEA COLEMAN DEPLOYMENT MANAGER Ot G47.9 SLEEP DISORDER, UNSPECIFIED 07/14/2016 BEA COLEMAN DEPLOYMENT MANAGER Ot G47.10 HYPERSOMNIA, UNSPECIFIED 07/14/2016 BEA COLEMAN DEPLOYMENT MANAGER Ot G47.50 PARASOMNIA, UNSPECIFIED 07/14/2016 BEA COLEMAN DEPLOYMENT MANAGER Ot I48.0 PAROXYSMAL ATRIAL FIBRILLATION 07/16/2016 BEA COLEMAN DEPLOYMENT MANAGER Ot J18.9 PNEUMONIA, UNSPECIFIED ORGANISM 07/16/2016 BEA COLEMAN DEPLOYMENT MANAGER Ot R06.02 SHORTNESS OF BREATH 07/20/2016 BEA COLEMAN DEPLOYMENT MANAGER Ot J18.9 PNEUMONIA, UNSPECIFIED ORGANISM 07/20/2016 BEA COLEMAN DEPLOYMENT MANAGER Ot R06.02 SHORTNESS OF BREATH 09/08/2016 SONIA ALVAREZ DEPLOYMENT MANAGER Ot J20.8 ACUTE BRONCHITIS DUE TO OTHER SPECIFIED 09/15/2016 CAMERON HO MD Ot E10.65 TYPE 1 DIABETES MELLITUS WITH HYPERGLYCE 09/15/2016 CAMERON HO MD Ot R31.29 OTHER MICROSCOPIC HEMATURIA 09/29/2016 SONIA ALVAREZ DEPLOYMENT MANAGER Ot J20.8 ACUTE BRONCHITIS DUE TO OTHER SPECIFIED 10/06/2016 CAMERON HO MD, Ot E10.65 TYPE 1 DIABETES MELLITUS WITH HYPERGLYCE 10/06/2016 CAMERON HO MD Ot R31.29 OTHER MICROSCOPIC HEMATURIA 12/15/2016 CAMERON HO MD Ot E03.9 HYPOTHYROIDISM, UNSPECIFIED 12/15/2016 CAMERON HO MD Ot E10.65 TYPE 1 DIABETES MELLITUS WITH HYPERGLYCE 12/15/2016 CAMERON HO MD Ot E66.9 OBESITY, UNSPECIFIED 12/15/2016 CAMERON HO MD Ot E78.5 HYPERLIPIDEMIA, UNSPECIFIED 12/15/2016 CAMERON HO MD Ot E87.5 HYPERKALEMIA 12/15/2016 CAMERON HO MD Ot I10 ESSENTIAL (PRIMARY) HYPERTENSION 12/15/2016 CAMERON HO MD Ot R31.29 OTHER MICROSCOPIC HEMATURIA 12/15/2016 CAMERON HO MD, Ot Z68.41 BODY MASS INDEX (BMI) 40.0-44.9, ADULT 01/10/2017 CAMERON HO MD Ot E03.9 HYPOTHYROIDISM, UNSPECIFIED 01/10/2017 CAMERON HO MD Ot E10.65 TYPE 1 DIABETES MELLITUS WITH HYPERGLYCE 01/10/2017 CAMERON HO MD, Ot E66.9 OBESITY, UNSPECIFIED 01/10/2017 CAMERON HO MD Ot E78.5 HYPERLIPIDEMIA, UNSPECIFIED 01/10/2017 CAMERON HO MD Ot E87.5 HYPERKALEMIA 01/10/2017 CAMERON HO MD Ot I10 ESSENTIAL (PRIMARY) HYPERTENSION 01/10/2017 CAMERON HO MD Ot R31.29 OTHER MICROSCOPIC HEMATURIA 01/10/2017 CAMERON HO MD, Ot Z68.41 BODY MASS INDEX (BMI) 40.0-44.9, ADULT 04/18/2017 CAMERON HO MD Ot E03.9 HYPOTHYROIDISM, UNSPECIFIED 04/18/2017 CAMERON HO MD Ot E10.65 TYPE 1 DIABETES MELLITUS WITH HYPERGLYCE 04/18/2017 CAMERON HO MD Ot E66.9 OBESITY, UNSPECIFIED 04/18/2017 CAMERON HO MD Ot E78.5 HYPERLIPIDEMIA, UNSPECIFIED 04/18/2017 CAMERON HO MD Ot I10 ESSENTIAL (PRIMARY) HYPERTENSION 04/18/2017 CAMERON HO MD Ot R31.29 OTHER MICROSCOPIC HEMATURIA 04/18/2017 CAMERON HO MD Ot Z79.899 OTHER [facility] (CURRENT) DRUG THERAPY 05/25/2017 GUY CURRY SHELL R Ot M23.8X2 OTHER INTERNAL DERANGEMENTS OF LEFT KNEE 05/25/2017 GUY CURRY SHELL R Ot M25.462 EFFUSION, LEFT KNEE 05/25/2017 GUY CURRY SHELL R Ot 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] 06/03/2017 SONIA ALVAREZ DEPLOYMENT MANAGER Ot M17.12 UNILATERAL PRIMARY OSTEOARTHRITIS, LEFT 06/08/2017 SONIA ALVAREZ DEPLOYMENT MANAGER Ot M17.12 UNILATERAL PRIMARY OSTEOARTHRITIS, LEFT 06/14/2017 GUY CURRY SHELL R Ot M23.8X2 OTHER INTERNAL DERANGEMENTS OF LEFT KNEE 06/14/2017 GUY CURRY SHELL R Ot M25.462 EFFUSION, LEFT KNEE 06/14/2017 GUY CURRY SHELL R Ot 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] 06/17/2017 GUY CURRY SHELL R Ot M23.8X2 OTHER INTERNAL DERANGEMENTS OF LEFT KNEE 06/17/2017 GUY CURRY SHELL R Ot M25.462 EFFUSION, LEFT KNEE 06/17/2017 GUY CURRY, SHELL R Ot 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] 06/21/2017 CAMERON HO MD Ot E10.65 TYPE 1 DIABETES MELLITUS WITH HYPERGLYCE 07/14/2017 CAMERON HO MD Ot E10.65 TYPE 1 DIABETES MELLITUS WITH HYPERGLYCE 08/01/2017 ROSALINA VALDES MD Ot M17.11 UNILATERAL PRIMARY OSTEOARTHRITIS, RIGHT 08/01/2017 LUCIO CURRY, ROSALINA Santacruz Ot Z01.810 ENCOUNTER FOR PREPROCEDURAL CARDIOVASCUL 08/01/2017 ROSALINA VALDES MD Ot Z11.2 ENCOUNTER FOR SCREENING FOR OTHER BACTER 08/02/2017 ROSALINA VALDES MD Ot M17.11 UNILATERAL PRIMARY OSTEOARTHRITIS, RIGHT 08/02/2017 ROSALINA VALDES MD, Ot Z01.810 ENCOUNTER FOR PREPROCEDURAL CARDIOVASCUL 08/02/2017 ROSALINA VALDES MD, Ot Z11.2 ENCOUNTER FOR SCREENING FOR OTHER BACTER 08/03/2017 ROSALINA VALDES MD Ot E11.9 TYPE 2 DIABETES MELLITUS WITHOUT COMPLIC 08/03/2017 ROSALINA VALDES MD Ot E78.5 HYPERLIPIDEMIA, UNSPECIFIED 08/03/2017 ROSALINA VALDES MD, Ot G47.33 OBSTRUCTIVE SLEEP APNEA (ADULT) (PEDIATR 08/03/2017 ROSALIAN VALDES MD Ot I10 ESSENTIAL (PRIMARY) HYPERTENSION 08/03/2017 ROSALINA VALDES MD, Ot I48.91 UNSPECIFIED ATRIAL FIBRILLATION 08/03/2017 ROSALINA VALDES MD, Ot J45.909 UNSPECIFIED ASTHMA, UNCOMPLICATED 08/03/2017 ROSALINA VALDES MD Ot K21.9 GASTRO-ESOPHAGEAL REFLUX DISEASE WITHOUT 08/03/2017 ROSALINA VALDES MD Ot M23.8X1 OTHER INTERNAL DERANGEMENTS OF RIGHT KNE 08/03/2017 ROSALINA VALDES MD Ot M94.261 CHONDROMALACIA, RIGHT KNEE 08/03/2017 ROSALINA VALDES MD, Ot Z79.899 OTHER [facility] (CURRENT) DRUG THERAPY 08/03/2017 ROSALINA VALDES MD Ot Z88.8 ALLERGY STATUS TO OTH DRUG/MEDS/BIOL SUB 08/04/2017 ROSALINA VALDES MD Ot E11.9 TYPE 2 DIABETES MELLITUS WITHOUT COMPLIC 08/04/2017 ROSALINA VALDES MD Ot E78.5 HYPERLIPIDEMIA, UNSPECIFIED 08/04/2017 ROSALINA VALDES MD, Ot G47.33 OBSTRUCTIVE SLEEP APNEA (ADULT) (PEDIATR 08/04/2017 ROSALINA VALDES MD Ot I10 ESSENTIAL (PRIMARY) HYPERTENSION 08/04/2017 ROSALINA VALDES MD Ot I48.91 UNSPECIFIED ATRIAL FIBRILLATION 08/04/2017 ROSALINA VALDES MD Ot J45.909 UNSPECIFIED ASTHMA, UNCOMPLICATED 08/04/2017 ROSALINA VALDES MD Ot K21.9 GASTRO-ESOPHAGEAL REFLUX DISEASE WITHOUT 08/04/2017 ROSALINA VALDES MD Ot M23.8X1 OTHER INTERNAL DERANGEMENTS OF RIGHT KNE 08/04/2017 ROSALINA VALDES MD Ot M94.261 CHONDROMALACIA, RIGHT KNEE 08/04/2017 ROSALINA VALDES MD Ot Z79.899 OTHER [facility] (CURRENT) DRUG THERAPY 08/04/2017 ROSALINA VALDES MD Ot Z88.8 ALLERGY STATUS TO OTH DRUG/MEDS/BIOL SUB 08/09/2017 ROSALINA VALDES MD Ot E11.9 TYPE 2 DIABETES MELLITUS WITHOUT COMPLIC 08/09/2017 ROSALINA VALDES MD Ot E78.5 HYPERLIPIDEMIA, UNSPECIFIED 08/09/2017 ROSALINA VALDES MD Ot G47.33 OBSTRUCTIVE SLEEP APNEA (ADULT) (PEDIATR 08/09/2017 ROSALINA VALDES MD Ot I10 ESSENTIAL (PRIMARY) HYPERTENSION 08/09/2017 ROSALINA VALDES MD Ot I48.91 UNSPECIFIED ATRIAL FIBRILLATION 08/09/2017 ROSALINA VALDES MD Ot J45.909 UNSPECIFIED ASTHMA, UNCOMPLICATED 08/09/2017 ROSALINA VALDES MD Ot K21.9 GASTRO-ESOPHAGEAL REFLUX DISEASE WITHOUT 08/09/2017 ROSALINA VALDES MD Ot M23.8X1 OTHER INTERNAL DERANGEMENTS OF RIGHT KNE 08/09/2017 ROSALINA VALDES MD Ot M94.261 CHONDROMALACIA, RIGHT KNEE 08/09/2017 ROSALINA VALDES MD Ot Z79.899 OTHER RN CARDIAC CATH (CURRENT) DRUG THERAPY 08/09/2017 ROSALINA VALDES MD Ot Z88.8 ALLERGY STATUS TO OTH DRUG/MEDS/BIOL SUB 08/19/2017 ROSALINA VALDES MD Ot E11.9 TYPE 2 DIABETES MELLITUS WITHOUT COMPLIC 08/19/2017 ROSALINA VALDES MD Ot E78.5 HYPERLIPIDEMIA, UNSPECIFIED 08/19/2017 ROSALINA VALDES MD Ot G47.33 OBSTRUCTIVE SLEEP APNEA (ADULT) (PEDIATR 08/19/2017 ROSALINA VALDES MD Ot I10 ESSENTIAL (PRIMARY) HYPERTENSION 08/19/2017 ROSALINA VALDES MD Ot I48.91 UNSPECIFIED ATRIAL FIBRILLATION 08/19/2017 ROSALINA VALDES MD Ot J45.909 UNSPECIFIED ASTHMA, UNCOMPLICATED 08/19/2017 ROSALINA VALEDS MD, Ot K21.9 GASTRO-ESOPHAGEAL REFLUX DISEASE WITHOUT 08/19/2017 ROSALINA VALDES MD, Ot M23.8X1 OTHER INTERNAL DERANGEMENTS OF RIGHT KNE 08/19/2017 ROSALINA VALDES MD, Ot M94.261 CHONDROMALACIA, RIGHT KNEE 08/19/2017 ROSALINA VALDES MD, Ot Z79.899 OTHER [facility] (CURRENT) DRUG THERAPY 08/19/2017 ROSALINA VALDES MD, Ot Z88.8 ALLERGY STATUS TO [facility] DRUG/MEDS/BIOL SUB 09/22/2017 CAMERON HO MD Ot 599.72 MICROSCOPIC HEMATURIA 09/22/2017 KARTIK BRANDT APRN Ot V04.5 VACCIN FOR RABIES 09/22/2017 ROSALINA VALDES MD, Ot M17.11 UNILATERAL PRIMARY OSTEOARTHRITIS, RIGHT 09/22/2017 ROSALINA VALDES MD, Ot M23.8X2 OTHER INTERNAL DERANGEMENTS OF LEFT KNEE 09/22/2017 ROSALINA VALDES MD, Ot Z01.818 ENCOUNTER FOR OTHER PREPROCEDURAL EXAMIN Procedures There is no data. Results Test Result Range Complete urinalysis with reflex to culture - 02/25/16 10:59 Urine color determination YELLOW NRG Urine clarity determination CLEAR NRG Urine pH measurement by test strip 6 5-9 Specific gravity of urine by test strip 1.010 1.016- 1.022 Urine protein assay by test strip, semi-quantitative NEGATIVE NEGATIVE Urine glucose detection by automated test strip 1+ NEGATIVE Erythrocytes detection in urine sediment by light microscopy 1+ NEGATIVE Urine ketones detection by automated test strip NEGATIVE NEGATIVE Urine nitrite detection by test strip NEGATIVE NEGATIVE Urine total bilirubin detection by test strip NEGATIVE NEGATIVE Urine urobilinogen measurement by automated test strip (mass/volume) NORMAL NORMAL Urine leukocyte esterase detection by dipstick NEGATIVE NEGATIVE Automated urine sediment erythrocyte count by microscopy (number/high power field) NONE NRG Automated urine sediment leukocyte count by microscopy (number/high power field ) NONE NRG Bacteria detection in urine sediment by light microscopy NEGATIVE NRG Squamous epithelial cells detection in urine sediment by light microscopy 2-5 NRG Crystals detection in urine sediment by light microscopy NONE NRG Casts detection in urine sediment by light microscopy NONE NRG Mucus detection in urine sediment by light microscopy NEGATIVE NRG Complete urinalysis with reflex to culture NO NRG Serum or plasma glucose measurement (mass/volume) - 02/25/16 10:59 Serum or plasma glucose measurement (mass/volume) 145 mg/dL 70-105 Hemoglobin A1c - 02/25/16 10:59 Hemoglobin A1c 6.5 % 4.5-6.2 Complete blood count (CBC) with automated white blood cell (WBC) differential - 04/03/16 02:51 Blood leukocytes automated count (number/volume) 14.2 10*3/uL 4.3-11.0 Blood erythrocytes automated count (number/volume) 4.21 10*6/uL 4.35-5.85 Venous blood hemoglobin measurement (mass/volume) 12.3 g/dL 11.5-16.0 Blood hematocrit (volume fraction) 38 % 35-52 Automated erythrocyte mean corpuscular volume 89 [foz_us] 80-99 Automated erythrocyte mean corpuscular hemoglobin (mass per erythrocyte) 29 pg 25-34 Automated erythrocyte mean corpuscular hemoglobin concentration measurement ( mass/volume) 33 g/dL 32-36 Automated erythrocyte distribution width ratio 14.2 % 10.0-14.5 Automated blood platelet count (count/volume) 272 10*3/uL 130-400 Automated blood platelet mean volume measurement 11.6 [foz_us] 7.4-10.4 Automated blood neutrophils/100 leukocytes 95 % 42-75 Automated blood lymphocytes/100 leukocytes 3 % 12-44 Blood monocytes/100 leukocytes 2 % 0-12 Automated blood eosinophils/100 leukocytes 0 % 0-10 Automated blood basophils/100 leukocytes 0 % 0-10 Blood neutrophils automated count (number/volume) 13.4 10*3 1.8-7.8 Blood lymphocytes automated count (number/volume) 0.4 10*3 1.0-4.0 Blood monocytes automated count (number/volume) 0.3 10*3 0.0-1.0 Automated eosinophil count 0.0 10*3/uL 0.0-0.3 Automated blood basophil count (count/volume) 0.0 10*3/uL 0.0-0.1 Comprehensive metabolic panel - 04/03/16 02:51 Serum or plasma sodium measurement (moles/volume) 140 mmol/L 135-145 Serum or plasma potassium measurement (moles/volume) 4.9 mmol/L 3.6-5.0 Serum or plasma chloride measurement (moles/volume) 102 mmol/L 98-107 Carbon dioxide 25 mmol/L 21-32 Serum or plasma anion gap determination (moles/volume) 13 mmol/L 5-14 Serum or plasma urea nitrogen measurement (mass/volume) 25 mg/dL 7-18 Serum or plasma creatinine measurement (mass/volume) 0.89 mg/dL 0.60-1.30 Serum or plasma urea nitrogen/creatinine mass ratio 28 NRG Serum or plasma creatinine measurement with calculation of estimated glomerular filtration rate > NRG Serum or plasma glucose measurement (mass/volume) 331 mg/dL 70-105 Serum or plasma calcium measurement (mass/volume) 9.1 mg/dL 8.5-10.1 Serum or plasma total bilirubin measurement (mass/volume) 0.8 mg/dL 0.1-1.0 Serum or plasma alkaline phosphatase measurement (enzymatic activity/volume) 82 U/L 40-136 Serum or plasma aspartate aminotransferase measurement (enzymatic activity/ volume) 23 U/L 5-34 Serum or plasma alanine aminotransferase measurement (enzymatic activity/volume ) 19 U/L 0-55 Serum or plasma protein measurement (mass/volume) 7.0 g/dL 6.4-8.2 Serum or plasma albumin measurement (mass/volume) 4.0 g/dL 3.2-4.5 Serum or plasma C reactive protein measurement (mass/volume) - 04/03/16 02:51 Serum or plasma C reactive protein measurement (mass/volume) 0.84 mg /dL 0.00-0.50 Blood manual differential performed detection - 04/03/16 02:51 Blood monocytes/100 leukocytes 1 % NRG Manual blood segmented neutrophils/100 leukocytes 94 % NRG Blood band neutrophils/100 leukocytes 2 % NRG Manual blood lymphocytes/100 leukocytes 3 % NRG Blood erythrocyte morphology finding identification NORMAL NRG Complete urinalysis with reflex to culture - 04/03/16 03:50 Urine color determination YELLOW NRG Urine clarity determination CLEAR NRG Urine pH measurement by test strip 5 5-9 Specific gravity of urine by test strip 1.015 1.016- 1.022 Urine protein assay by test strip, semi-quantitative NEGATIVE NEGATIVE Urine glucose detection by automated test strip 4+ NEGATIVE Erythrocytes detection in urine sediment by light microscopy 2+ NEGATIVE Urine ketones detection by automated test strip 3+ NEGATIVE Urine nitrite detection by test strip NEGATIVE NEGATIVE Urine total bilirubin detection by test strip NEGATIVE NEGATIVE Urine urobilinogen measurement by automated test strip (mass/volume) NORMAL NORMAL Urine leukocyte esterase detection by dipstick NEGATIVE NEGATIVE Automated urine sediment erythrocyte count by microscopy (number/high power field) RARE NRG Automated urine sediment leukocyte count by microscopy (number/high power field ) NONE NRG Bacteria detection in urine sediment by light microscopy TRACE NRG Squamous epithelial cells detection in urine sediment by light microscopy 2-5 NRG Crystals detection in urine sediment by light microscopy NONE NRG Casts detection in urine sediment by light microscopy NONE NRG Mucus detection in urine sediment by light microscopy NEGATIVE NRG Complete urinalysis with reflex to culture NO NRG Capillary blood glucose measurement by glucometer (mass/volume) - 04/03/16 04: 20 Capillary blood glucose measurement by glucometer (mass/volume) 274 mg/dL 70-110 Capillary blood glucose measurement by glucometer (mass/volume) - 04/03/16 05: 54 Capillary blood glucose measurement by glucometer (mass/volume) 244 mg/dL 70-110 Whole blood basic metabolic panel - 04/03/16 09:38 Serum or plasma sodium measurement (moles/volume) 141 mmol/L 135-145 Serum or plasma potassium measurement (moles/volume) 4.3 mmol/L 3.6-5.0 Serum or plasma chloride measurement (moles/volume) 109 mmol/L 98-107 Carbon dioxide 23 mmol/L 21-32 Serum or plasma anion gap determination (moles/volume) 9 mmol/L 5-14 Serum or plasma urea nitrogen measurement (mass/volume) 19 mg/dL 7-18 Serum or plasma creatinine measurement (mass/volume) 0.74 mg/dL 0.60-1.30 Serum or plasma urea nitrogen/creatinine mass ratio 26 NRG Serum or plasma creatinine measurement with calculation of estimated glomerular filtration rate > NRG Serum or plasma glucose measurement (mass/volume) 278 mg/dL 70-105 Serum or plasma calcium measurement (mass/volume) 8.6 mg/dL 8.5-10.1 Capillary blood glucose measurement by glucometer (mass/volume) - 04/03/16 11: 43 Capillary blood glucose measurement by glucometer (mass/volume) 219 mg/dL 70-110 Capillary blood glucose measurement by glucometer (mass/volume) - 04/03/16 14: 38 Capillary blood glucose measurement by glucometer (mass/volume) 272 mg/dL 70-110 Capillary blood glucose measurement by glucometer (mass/volume) - 04/03/16 19: 17 Capillary blood glucose measurement by glucometer (mass/volume) 385 mg/dL 70-110 Complete blood count (CBC) with automated white blood cell (WBC) differential - 04/04/16 05:55 Blood leukocytes automated count (number/volume) 12.5 10*3/uL 4.3-11.0 Blood erythrocytes automated count (number/volume) 3.83 10*6/uL 4.35-5.85 Venous blood hemoglobin measurement (mass/volume) 11.1 g/dL 11.5-16.0 Blood hematocrit (volume fraction) 35 % 35-52 Automated erythrocyte mean corpuscular volume 91 [foz_us] 80-99 Automated erythrocyte mean corpuscular hemoglobin (mass per erythrocyte) 29 pg 25-34 Automated erythrocyte mean corpuscular hemoglobin concentration measurement ( mass/volume) 32 g/dL 32-36 Automated erythrocyte distribution width ratio 14.9 % 10.0-14.5 Automated blood platelet count (count/volume) 265 10*3/uL 130-400 Automated blood platelet mean volume measurement 11.3 [foz_us] 7.4-10.4 Automated blood neutrophils/100 leukocytes 75 % 42-75 Automated blood lymphocytes/100 leukocytes 13 % 12-44 Blood monocytes/100 leukocytes 12 % 0-12 Automated blood eosinophils/100 leukocytes 0 % 0-10 Automated blood basophils/100 leukocytes 0 % 0-10 Blood neutrophils automated count (number/volume) 9.4 10*3 1.8-7.8 Blood lymphocytes automated count (number/volume) 1.6 10*3 1.0-4.0 Blood monocytes automated count (number/volume) 1.5 10*3 0.0-1.0 Automated eosinophil count 0.0 10*3/uL 0.0-0.3 Automated blood basophil count (count/volume) 0.0 10*3/uL 0.0-0.1 Comprehensive metabolic panel - 04/04/16 05:55 Serum or plasma sodium measurement (moles/volume) 140 mmol/L 135-145 Serum or plasma potassium measurement (moles/volume) 4.0 mmol/L 3.6-5.0 Serum or plasma chloride measurement (moles/volume) 110 mmol/L 98-107 Carbon dioxide 22 mmol/L 21-32 Serum or plasma anion gap determination (moles/volume) 8 mmol/L 5-14 Serum or plasma urea nitrogen measurement (mass/volume) 19 mg/dL 7-18 Serum or plasma creatinine measurement (mass/volume) 0.77 mg/dL 0.60-1.30 Serum or plasma urea nitrogen/creatinine mass ratio 25 NRG Serum or plasma creatinine measurement with calculation of estimated glomerular filtration rate > NRG Serum or plasma glucose measurement (mass/volume) 229 mg/dL 70-105 Serum or plasma calcium measurement (mass/volume) 8.4 mg/dL 8.5-10.1 Serum or plasma total bilirubin measurement (mass/volume) 0.7 mg/dL 0.1-1.0 Serum or plasma alkaline phosphatase measurement (enzymatic activity/volume) 69 U/L 40-136 Serum or plasma aspartate aminotransferase measurement (enzymatic activity/ volume) 29 U/L 5-34 Serum or plasma alanine aminotransferase measurement (enzymatic activity/volume ) 22 U/L 0-55 Serum or plasma protein measurement (mass/volume) 5.9 g/dL 6.4-8.2 Serum or plasma albumin measurement (mass/volume) 3.4 g/dL 3.2-4.5 Capillary blood glucose measurement by glucometer (mass/volume) - 04/04/16 05: 56 Capillary blood glucose measurement by glucometer (mass/volume) 206 mg/dL 70-110 Capillary blood glucose measurement by glucometer (mass/volume) - 04/04/16 09: 28 Capillary blood glucose measurement by glucometer (mass/volume) 266 mg/dL 70-110 Complete blood count (CBC) with automated white blood cell (WBC) differential - 05/16/16 22:00 Blood leukocytes automated count (number/volume) 8.3 10*3/uL 4.3-11.0 Blood erythrocytes automated count (number/volume) 4.34 10*6/uL 4.35-5.85 Venous blood hemoglobin measurement (mass/volume) 12.6 g/dL 11.5-16.0 Blood hematocrit (volume fraction) 38 % 35-52 Automated erythrocyte mean corpuscular volume 88 [foz_us] 80-99 Automated erythrocyte mean corpuscular hemoglobin (mass per erythrocyte) 29 pg 25-34 Automated erythrocyte mean corpuscular hemoglobin concentration measurement ( mass/volume) 33 g/dL 32-36 Automated erythrocyte distribution width ratio 14.2 % 10.0-14.5 Automated blood platelet count (count/volume) 254 10*3/uL 130-400 Automated blood platelet mean volume measurement 10.7 [foz_us] 7.4-10.4 Automated blood neutrophils/100 leukocytes 90 % 42-75 Automated blood lymphocytes/100 leukocytes 8 % 12-44 Blood monocytes/100 leukocytes 2 % 0-12 Automated blood eosinophils/100 leukocytes 0 % 0-10 Automated blood basophils/100 leukocytes 0 % 0-10 Blood neutrophils automated count (number/volume) 7.4 10*3 1.8-7.8 Blood lymphocytes automated count (number/volume) 0.7 10*3 1.0-4.0 Blood monocytes automated count (number/volume) 0.2 10*3 0.0-1.0 Automated eosinophil count 0.0 10*3/uL 0.0-0.3 Automated blood basophil count (count/volume) 0.0 10*3/uL 0.0-0.1 Complete urinalysis with reflex to culture - 05/16/16 22:00 Urine color determination YELLOW NRG Urine clarity determination CLEAR NRG Urine pH measurement by test strip 5 5-9 Specific gravity of urine by test strip 1.025 1.016- 1.022 Urine protein assay by test strip, semi-quantitative 2+ NEGATIVE Urine glucose detection by automated test strip 4+ NEGATIVE Erythrocytes detection in urine sediment by light microscopy 3+ NEGATIVE Urine ketones detection by automated test strip 4+ NEGATIVE Urine nitrite detection by test strip NEGATIVE NEGATIVE Urine total bilirubin detection by test strip NEGATIVE NEGATIVE Urine urobilinogen measurement by automated test strip (mass/volume) NORMAL NORMAL Urine leukocyte esterase detection by dipstick NEGATIVE NEGATIVE Automated urine sediment erythrocyte count by microscopy (number/high power field) NONE NRG Automated urine sediment leukocyte count by microscopy (number/high power field ) RARE NRG Bacteria detection in urine sediment by light microscopy TRACE NRG Squamous epithelial cells detection in urine sediment by light microscopy 5-10 NRG Crystals detection in urine sediment by light microscopy NONE NRG Casts detection in urine sediment by light microscopy PRESENT NRG Mucus detection in urine sediment by light microscopy NEGATIVE NRG Complete urinalysis with reflex to culture NO NRG Hyaline casts detection in urine sediment by light microscopy 5-10 NRG Comprehensive metabolic panel - 05/16/16 22:00 Serum or plasma sodium measurement (moles/volume) 136 mmol/L 135-145 Serum or plasma potassium measurement (moles/volume) 4.7 mmol/L 3.6-5.0 Serum or plasma chloride measurement (moles/volume) 98 mmol/L 98-107 Carbon dioxide 22 mmol/L 21-32 Serum or plasma anion gap determination (moles/volume) 16 mmol/L 5-14 Serum or plasma urea nitrogen measurement (mass/volume) 20 mg/dL 7-18 Serum or plasma creatinine measurement (mass/volume) 0.87 mg/dL 0.60-1.30 Serum or plasma urea nitrogen/creatinine mass ratio 23 NRG Serum or plasma creatinine measurement with calculation of estimated glomerular filtration rate > NRG Serum or plasma glucose measurement (mass/volume) 340 mg/dL 70-105 Serum or plasma calcium measurement (mass/volume) 9.9 mg/dL 8.5-10.1 Serum or plasma total bilirubin measurement (mass/volume) 0.5 mg/dL 0.1-1.0 Serum or plasma alkaline phosphatase measurement (enzymatic activity/volume) 85 U/L 40-136 Serum or plasma aspartate aminotransferase measurement (enzymatic activity/ volume) 24 U/L 5-34 Serum or plasma alanine aminotransferase measurement (enzymatic activity/volume ) 22 U/L 0-55 Serum or plasma protein measurement (mass/volume) 7.8 g/dL 6.4-8.2 Serum or plasma albumin measurement (mass/volume) 4.3 g/dL 3.2-4.5 Magnesium - 05/16/16 22:00 Magnesium 2.0 mg/dL 1.8-2.4 Serum or plasma troponin i.cardiac measurement (mass/volume) - 05/16/16 22:00 Serum or plasma troponin i.cardiac measurement (mass/volume) < ng/ mL <0.30 Lipase - 05/16/16 22:00 Lipase 21 U/L 8-78 Blood manual differential performed detection - 05/16/16 22:00 Blood monocytes/100 leukocytes 3 % NRG Manual blood segmented neutrophils/100 leukocytes 93 % NRG Manual blood lymphocytes/100 leukocytes 4 % NRG Blood erythrocyte morphology finding identification NORMAL NRG Serum or plasma phosphate measurement (mass/volume) - 05/16/16 22:00 Serum or plasma phosphate measurement (mass/volume) 3.9 mg/dL 2.3-4.7 Influenza virus A and B antigen detection - 05/16/16 22:17 FLU RESULT NEGATIVE FOR INFLUENZA A AND B ANTIGENS BY IA NRG Arterial blood gas measurement - 05/16/16 22:56 Blood pCO2 48 mm[Hg] 35-45 Blood pO2 36 mm[Hg] 79-93 Arterial blood bicarbonate measurement (moles/volume) 27 mmol/L 23-27 Arterial blood base excess by calculation 0.8 mmol/L -2.5 -2.5 Arterial blood oxygen saturation measurement 63 % 94-100 * Inhaled oxygen flow rate NA NRG Arterial blood pH measurement with patient temperature correction 7.36 7.37-7.43 Arterial blood carbon dioxide, total measurement (moles/volume) 28.2 mmol/L 21.0-31.0 Body site LEFT AC NRG Assessment of wrist artery patency prior to arterial puncture NA NRG Setting of ventilation mode NO NRG Measurement of body temperature 98.8 NRG Blood lactic acid measurement (moles/volume) - 05/16/16 23:00 Blood lactic acid measurement (moles/volume) 0.9 mmol/L 0.5-2.0 Bacterial blood culture - 05/16/16 23:00 Bacterial blood culture NG NRG Bacterial blood culture - 05/16/16 23:30 Bacterial blood culture NG NRG Methicillin resistant Staphylococcus aureus (MRSA) screening culture - 02:10 Methicillin resistant Staphylococcus aureus (MRSA) screening culture NEG NRG Capillary blood glucose measurement by glucometer (mass/volume) - 05/17/16 02: 55 Capillary blood glucose measurement by glucometer (mass/volume) 247 mg/dL 70-110 Complete blood count (CBC) with automated white blood cell (WBC) differential - 05/17/16 03:58 Blood leukocytes automated count (number/volume) 12.6 10*3/uL 4.3-11.0 Blood erythrocytes automated count (number/volume) 3.90 10*6/uL 4.35-5.85 Venous blood hemoglobin measurement (mass/volume) 11.3 g/dL 11.5-16.0 Blood hematocrit (volume fraction) 35 % 35-52 Automated erythrocyte mean corpuscular volume 89 [foz_us] 80-99 Automated erythrocyte mean corpuscular hemoglobin (mass per erythrocyte) 29 pg 25-34 Automated erythrocyte mean corpuscular hemoglobin concentration measurement ( mass/volume) 33 g/dL 32-36 Automated erythrocyte distribution width ratio 14.2 % 10.0-14.5 Automated blood platelet count (count/volume) 230 10*3/uL 130-400 Automated blood platelet mean volume measurement 11.3 [foz_us] 7.4-10.4 Automated blood neutrophils/100 leukocytes 87 % 42-75 Automated blood lymphocytes/100 leukocytes 8 % 12-44 Blood monocytes/100 leukocytes 5 % 0-12 Automated blood eosinophils/100 leukocytes 0 % 0-10 Automated blood basophils/100 leukocytes 0 % 0-10 Blood neutrophils automated count (number/volume) 10.9 10*3 1.8-7.8 Blood lymphocytes automated count (number/volume) 1.0 10*3 1.0-4.0 Blood monocytes automated count (number/volume) 0.7 10*3 0.0-1.0 Automated eosinophil count 0.0 10*3/uL 0.0-0.3 Automated blood basophil count (count/volume) 0.0 10*3/uL 0.0-0.1 Whole blood basic metabolic panel - 05/17/16 03:58 Serum or plasma sodium measurement (moles/volume) 139 mmol/L 135-145 Serum or plasma potassium measurement (moles/volume) 4.2 mmol/L 3.6-5.0 Serum or plasma chloride measurement (moles/volume) 105 mmol/L 98-107 Carbon dioxide 21 mmol/L 21-32 Serum or plasma anion gap determination (moles/volume) 13 mmol/L 5-14 Serum or plasma urea nitrogen measurement (mass/volume) 19 mg/dL 7-18 Serum or plasma creatinine measurement (mass/volume) 0.75 mg/dL 0.60-1.30 Serum or plasma urea nitrogen/creatinine mass ratio 25 NRG Serum or plasma creatinine measurement with calculation of estimated glomerular filtration rate > NRG Serum or plasma glucose measurement (mass/volume) 240 mg/dL 70-105 Serum or plasma calcium measurement (mass/volume) 8.9 mg/dL 8.5-10.1 Serum or plasma phosphate measurement (mass/volume) - 05/17/16 03:58 Serum or plasma phosphate measurement (mass/volume) 4.1 mg/dL 2.3-4.7 Magnesium - 05/17/16 03:58 Magnesium 2.0 mg/dL 1.8-2.4 Capillary blood glucose measurement by glucometer (mass/volume) - 05/17/16 04: 38 Capillary blood glucose measurement by glucometer (mass/volume) 205 mg/dL 70-110 Capillary blood glucose measurement by glucometer (mass/volume) - 05/17/16 05: 13 Capillary blood glucose measurement by glucometer (mass/volume) 172 mg/dL 70-110 Capillary blood glucose measurement by glucometer (mass/volume) - 05/17/16 06: 04 Capillary blood glucose measurement by glucometer (mass/volume) 145 mg/dL 70-110 Capillary blood glucose measurement by glucometer (mass/volume) - 05/17/16 06: 37 Capillary blood glucose measurement by glucometer (mass/volume) 126 mg/dL 70-110 Whole blood basic metabolic panel - 05/17/16 07:47 Serum or plasma sodium measurement (moles/volume) 139 mmol/L 135-145 Serum or plasma potassium measurement (moles/volume) 4.1 mmol/L 3.6-5.0 Serum or plasma chloride measurement (moles/volume) 105 mmol/L 98-107 Carbon dioxide 23 mmol/L 21-32 Serum or plasma anion gap determination (moles/volume) 11 mmol/L 5-14 Serum or plasma urea nitrogen measurement (mass/volume) 19 mg/dL 7-18 Serum or plasma creatinine measurement (mass/volume) 0.77 mg/dL 0.60-1.30 Serum or plasma urea nitrogen/creatinine mass ratio 25 NRG Serum or plasma creatinine measurement with calculation of estimated glomerular filtration rate > NRG Serum or plasma glucose measurement (mass/volume) 237 mg/dL 70-105 Serum or plasma calcium measurement (mass/volume) 8.8 mg/dL 8.5-10.1 Capillary blood glucose measurement by glucometer (mass/volume) - 05/17/16 10: 52 Capillary blood glucose measurement by glucometer (mass/volume) 343 mg/dL 70-110 Capillary blood glucose measurement by glucometer (mass/volume) - 05/17/16 15: 43 Capillary blood glucose measurement by glucometer (mass/volume) 203 mg/dL 70-110 Whole blood basic metabolic panel - 05/17/16 16:08 Serum or plasma sodium measurement (moles/volume) 141 mmol/L 135-145 Serum or plasma potassium measurement (moles/volume) 4.4 mmol/L 3.6-5.0 Serum or plasma chloride measurement (moles/volume) 106 mmol/L 98-107 Carbon dioxide 27 mmol/L 21-32 Serum or plasma anion gap determination (moles/volume) 8 mmol/L 5-14 Serum or plasma urea nitrogen measurement (mass/volume) 20 mg/dL 7-18 Serum or plasma creatinine measurement (mass/volume) 0.79 mg/dL 0.60-1.30 Serum or plasma urea nitrogen/creatinine mass ratio 25 NRG Serum or plasma creatinine measurement with calculation of estimated glomerular filtration rate > NRG Serum or plasma glucose measurement (mass/volume) 238 mg/dL 70-105 Serum or plasma calcium measurement (mass/volume) 8.6 mg/dL 8.5-10.1 Capillary blood glucose measurement by glucometer (mass/volume) - 05/17/16 21: 30 Capillary blood glucose measurement by glucometer (mass/volume) 118 mg/dL 70-110 Complete blood count (CBC) with automated white blood cell (WBC) differential - 05/18/16 03:20 Blood leukocytes automated count (number/volume) 7.6 10*3/uL 4.3-11.0 Blood erythrocytes automated count (number/volume) 3.44 10*6/uL 4.35-5.85 Venous blood hemoglobin measurement (mass/volume) 10.0 g/dL 11.5-16.0 Blood hematocrit (volume fraction) 31 % 35-52 Automated erythrocyte mean corpuscular volume 91 [foz_us] 80-99 Automated erythrocyte mean corpuscular hemoglobin (mass per erythrocyte) 29 pg 25-34 Automated erythrocyte mean corpuscular hemoglobin concentration measurement ( mass/volume) 32 g/dL 32-36 Automated erythrocyte distribution width ratio 14.7 % 10.0-14.5 Automated blood platelet count (count/volume) 220 10*3/uL 130-400 Automated blood platelet mean volume measurement 11.4 [foz_us] 7.4-10.4 Automated blood neutrophils/100 leukocytes 63 % 42-75 Automated blood lymphocytes/100 leukocytes 26 % 12-44 Blood monocytes/100 leukocytes 9 % 0-12 Automated blood eosinophils/100 leukocytes 1 % 0-10 Automated blood basophils/100 leukocytes 0 % 0-10 Blood neutrophils automated count (number/volume) 4.8 10*3 1.8-7.8 Blood lymphocytes automated count (number/volume) 2.0 10*3 1.0-4.0 Blood monocytes automated count (number/volume) 0.7 10*3 0.0-1.0 Automated eosinophil count 0.1 10*3/uL 0.0-0.3 Automated blood basophil count (count/volume) 0.0 10*3/uL 0.0-0.1 Whole blood basic metabolic panel - 05/18/16 03:20 Serum or plasma sodium measurement (moles/volume) 139 mmol/L 135-145 Serum or plasma potassium measurement (moles/volume) 4.2 mmol/L 3.6-5.0 Serum or plasma chloride measurement (moles/volume) 108 mmol/L 98-107 Carbon dioxide 20 mmol/L 21-32 Serum or plasma anion gap determination (moles/volume) 11 mmol/L 5-14 Serum or plasma urea nitrogen measurement (mass/volume) 20 mg/dL 7-18 Serum or plasma creatinine measurement (mass/volume) 0.74 mg/dL 0.60-1.30 Serum or plasma urea nitrogen/creatinine mass ratio 27 NRG Serum or plasma creatinine measurement with calculation of estimated glomerular filtration rate > NRG Serum or plasma glucose measurement (mass/volume) 225 mg/dL 70-105 Serum or plasma calcium measurement (mass/volume) 8.2 mg/dL 8.5-10.1 Serum or plasma phosphate measurement (mass/volume) - 05/18/16 03:20 Serum or plasma phosphate measurement (mass/volume) 3.8 mg/dL 2.3-4.7 Magnesium - 05/18/16 03:20 Magnesium 2.0 mg/dL 1.8-2.4 Capillary blood glucose measurement by glucometer (mass/volume) - 05/18/16 11: 46 Capillary blood glucose measurement by glucometer (mass/volume) 289 mg/dL 70-110 Serum or plasma glucose measurement (mass/volume) - 06/08/16 11:24 Serum or plasma glucose measurement (mass/volume) 130 mg/dL 70-105 Hemoglobin A1c - 06/08/16 11:24 Hemoglobin A1c 6.8 % 4.5-6.2 Complete urinalysis with reflex to culture - 06/08/16 11:27 Urine color determination YELLOW NRG Urine clarity determination CLEAR NRG Urine pH measurement by test strip 5 5-9 Specific gravity of urine by test strip 1.015 1.016- 1.022 Urine protein assay by test strip, semi-quantitative NEGATIVE NEGATIVE Urine glucose detection by automated test strip 2+ NEGATIVE Erythrocytes detection in urine sediment by light microscopy 1+ NEGATIVE Urine ketones detection by automated test strip NEGATIVE NEGATIVE Urine nitrite detection by test strip NEGATIVE NEGATIVE Urine total bilirubin detection by test strip NEGATIVE NEGATIVE Urine urobilinogen measurement by automated test strip (mass/volume) NORMAL NORMAL Urine leukocyte esterase detection by dipstick 1+ NEGATIVE Automated urine sediment erythrocyte count by microscopy (number/high power field) NONE NRG Automated urine sediment leukocyte count by microscopy (number/high power field ) [HPF] NRG Bacteria detection in urine sediment by light microscopy TRACE NRG Squamous epithelial cells detection in urine sediment by light microscopy 0-2 NRG Crystals detection in urine sediment by light microscopy NONE NRG Casts detection in urine sediment by light microscopy NONE NRG Mucus detection in urine sediment by light microscopy NEGATIVE NRG Complete urinalysis with reflex to culture NO NRG Complete blood count (CBC) with automated white blood cell (WBC) differential - 09/06/16 14:34 Blood leukocytes automated count (number/volume) 11.4 10*3/uL 4.3-11.0 Blood erythrocytes automated count (number/volume) 3.91 10*6/uL 4.35-5.85 Venous blood hemoglobin measurement (mass/volume) 11.2 g/dL 11.5-16.0 Blood hematocrit (volume fraction) 35 % 35-52 Automated erythrocyte mean corpuscular volume 91 [foz_us] 80-99 Automated erythrocyte mean corpuscular hemoglobin (mass per erythrocyte) 29 pg 25-34 Automated erythrocyte mean corpuscular hemoglobin concentration measurement ( mass/volume) 32 g/dL 32-36 Automated erythrocyte distribution width ratio 15.2 % 10.0-14.5 Automated blood platelet count (count/volume) 283 10*3/uL 130-400 Automated blood platelet mean volume measurement 10.4 [foz_us] 7.4-10.4 Automated blood neutrophils/100 leukocytes 72 % 42-75 Automated blood lymphocytes/100 leukocytes 16 % 12-44 Blood monocytes/100 leukocytes 9 % 0-12 Automated blood eosinophils/100 leukocytes 3 % 0-10 Automated blood basophils/100 leukocytes 0 % 0-10 Blood neutrophils automated count (number/volume) 8.2 10*3 1.8-7.8 Blood lymphocytes automated count (number/volume) 1.8 10*3 1.0-4.0 Blood monocytes automated count (number/volume) 1.0 10*3 0.0-1.0 Automated eosinophil count 0.4 10*3/uL 0.0-0.3 Automated blood basophil count (count/volume) 0.0 10*3/uL 0.0-0.1 Complete urinalysis with reflex to culture - 09/14/16 11:35 Urine color determination YELLOW NRG Urine clarity determination CLEAR NRG Urine pH measurement by test strip 7 5-9 Specific gravity of urine by test strip 1.005 1.016- 1.022 Urine protein assay by test strip, semi-quantitative NEGATIVE NEGATIVE Urine glucose detection by automated test strip NEGATIVE NEGATIVE Erythrocytes detection in urine sediment by light microscopy NEGATIVE NEGATIVE Urine ketones detection by automated test strip NEGATIVE NEGATIVE Urine nitrite detection by test strip NEGATIVE NEGATIVE Urine total bilirubin detection by test strip NEGATIVE NEGATIVE Urine urobilinogen measurement by automated test strip (mass/volume) NORMAL NORMAL Urine leukocyte esterase detection by dipstick 1+ NEGATIVE Automated urine sediment erythrocyte count by microscopy (number/high power field) NONE NRG Automated urine sediment leukocyte count by microscopy (number/high power field ) [HPF] NRG Bacteria detection in urine sediment by light microscopy FEW NRG Squamous epithelial cells detection in urine sediment by light microscopy 25-50 NRG Crystals detection in urine sediment by light microscopy NONE NRG Casts detection in urine sediment by light microscopy NONE NRG Mucus detection in urine sediment by light microscopy NEGATIVE NRG Complete urinalysis with reflex to culture NO NRG Serum or plasma glucose measurement (mass/volume) - 09/14/16 11:39 Serum or plasma glucose measurement (mass/volume) 40 mg/dL 70-105 Hemoglobin A1c - 09/14/16 11:39 Hemoglobin A1c 5.6 % 4.5-6.2 Complete urinalysis with reflex to culture - 12/15/16 08:38 Urine color determination YELLOW NRG Urine clarity determination CLEAR NRG Urine pH measurement by test strip 5 5-9 Specific gravity of urine by test strip 1.020 1.016- 1.022 Urine protein assay by test strip, semi-quantitative NEGATIVE NEGATIVE Urine glucose detection by automated test strip NEGATIVE NEGATIVE Erythrocytes detection in urine sediment by light microscopy 1+ NEGATIVE Urine ketones detection by automated test strip NEGATIVE NEGATIVE Urine nitrite detection by test strip NEGATIVE NEGATIVE Urine total bilirubin detection by test strip NEGATIVE NEGATIVE Urine urobilinogen measurement by automated test strip (mass/volume) NORMAL NORMAL Urine leukocyte esterase detection by dipstick 1+ NEGATIVE Automated urine sediment erythrocyte count by microscopy (number/high power field) NONE NRG Automated urine sediment leukocyte count by microscopy (number/high power field ) NONE NRG Bacteria detection in urine sediment by light microscopy NEGATIVE NRG Squamous epithelial cells detection in urine sediment by light microscopy RARE NRG Crystals detection in urine sediment by light microscopy NONE NRG Casts detection in urine sediment by light microscopy NONE NRG Mucus detection in urine sediment by light microscopy NEGATIVE NRG Complete urinalysis with reflex to culture NO NRG Urine microalbumin measurement by test strip (mass/volume) - 12/15/16 08:38 Urine creatinine measurement (mass/volume) 115 % NRG Microalbumin [mass/volume] in urine 5.5 % 0.0-20.0 Microalbumin/creatinine [ratio] in urine 4.8 mg/g{Cre} 0.0-30.0 Comprehensive metabolic panel - 12/15/16 08:40 Serum or plasma sodium measurement (moles/volume) 140 mmol/L 135-145 Serum or plasma potassium measurement (moles/volume) 4.5 mmol/L 3.6-5.0 Serum or plasma chloride measurement (moles/volume) 105 mmol/L 98-107 Carbon dioxide 25 mmol/L 21-32 Serum or plasma anion gap determination (moles/volume) 10 mmol/L 5-14 Serum or plasma urea nitrogen measurement (mass/volume) 18 mg/dL 7-18 Serum or plasma creatinine measurement (mass/volume) 0.74 mg/dL 0.60-1.30 Serum or plasma urea nitrogen/creatinine mass ratio 24 NRG Serum or plasma creatinine measurement with calculation of estimated glomerular filtration rate > NRG Serum or plasma glucose measurement (mass/volume) 155 mg/dL 70-105 Serum or plasma calcium measurement (mass/volume) 9.9 mg/dL 8.5-10.1 Serum or plasma total bilirubin measurement (mass/volume) 0.6 mg/dL 0.1-1.0 Serum or plasma alkaline phosphatase measurement (enzymatic activity/volume) 94 U/L 40-136 Serum or plasma aspartate aminotransferase measurement (enzymatic activity/ volume) 22 U/L 5-34 Serum or plasma alanine aminotransferase measurement (enzymatic activity/volume ) 23 U/L 0-55 Serum or plasma protein measurement (mass/volume) 7.8 g/dL 6.4-8.2 Serum or plasma albumin measurement (mass/volume) 4.1 g/dL 3.2-4.5 Lipid 1996 panel - 12/15/16 08:40 Serum or plasma triglyceride measurement (mass/volume) 71 mg/dL <150 Serum or plasma cholesterol measurement (mass/volume) 153 mg/dL < 200 Serum or plasma cholesterol in HDL measurement (mass/volume) 66 mg/ dL 40-60 Cholesterol in LDL [mass/volume] in serum or plasma by direct assay 69 mg/dL 1-129 Serum or plasma cholesterol in VLDL measurement (mass/volume) 14 mg/ dL 5-40 Hemoglobin A1c - 12/15/16 08:40 Hemoglobin A1c 6.6 % 4.5-6.2 THYROID STIMULATING HORMONE - 12/15/16 08:40 THYROID STIMULATING HORMONE 0.74 u[iU]/mL 0.35-4.94 Complete urinalysis with reflex to culture - 03/24/17 11:46 Urine color determination YELLOW NRG Urine clarity determination CLEAR NRG Urine pH measurement by test strip 7 5-9 Specific gravity of urine by test strip 1.010 1.016- 1.022 Urine protein assay by test strip, semi-quantitative NEGATIVE NEGATIVE Urine glucose detection by automated test strip NEGATIVE NEGATIVE Erythrocytes detection in urine sediment by light microscopy 2+ NEGATIVE Urine ketones detection by automated test strip NEGATIVE NEGATIVE Urine nitrite detection by test strip NEGATIVE NEGATIVE Urine total bilirubin detection by test strip NEGATIVE NEGATIVE Urine urobilinogen measurement by automated test strip (mass/volume) NORMAL NORMAL Urine leukocyte esterase detection by dipstick NEGATIVE NEGATIVE Automated urine sediment erythrocyte count by microscopy (number/high power field) [HPF] NRG Automated urine sediment leukocyte count by microscopy (number/high power field ) NONE NRG Bacteria detection in urine sediment by light microscopy NEGATIVE NRG Squamous epithelial cells detection in urine sediment by light microscopy 0-2 NRG Crystals detection in urine sediment by light microscopy NONE NRG Casts detection in urine sediment by light microscopy NONE NRG Mucus detection in urine sediment by light microscopy NEGATIVE NRG Complete urinalysis with reflex to culture NO NRG Serum or plasma glucose measurement (mass/volume) - 03/24/17 11:58 Serum or plasma glucose measurement (mass/volume) 82 mg/dL 70-105 Hemoglobin A1c - 03/24/17 11:58 Hemoglobin A1c 6.4 % 4.5-6.2 Serum or plasma glucose measurement (mass/volume) - 06/20/17 15:05 Serum or plasma glucose measurement (mass/volume) 126 mg/dL 70-105 Hemoglobin A1c - 06/20/17 15:05 Blood hemoglobin A1C measurement (mass/volume) 7.3 % 4.0- 5.6 MEAN BLOOD GLUCOSE 163 % <=126 Complete urinalysis with reflex to culture - 06/20/17 15:11 Urine color determination YELLOW NRG Urine clarity determination CLEAR NRG Urine pH measurement by test strip 6 5-9 Specific gravity of urine by test strip 1.020 1.016- 1.022 Urine protein assay by test strip, semi-quantitative 1+ NEGATIVE Urine glucose detection by automated test strip NEGATIVE NEGATIVE Erythrocytes detection in urine sediment by light microscopy 1+ NEGATIVE Urine ketones detection by automated test strip NEGATIVE NEGATIVE Urine nitrite detection by test strip NEGATIVE NEGATIVE Urine total bilirubin detection by test strip NEGATIVE NEGATIVE Urine urobilinogen measurement by automated test strip (mass/volume) NORMAL NORMAL Urine leukocyte esterase detection by dipstick NEGATIVE NEGATIVE Automated urine sediment erythrocyte count by microscopy (number/high power field) RARE NRG Automated urine sediment leukocyte count by microscopy (number/high power field ) RARE NRG Bacteria detection in urine sediment by light microscopy TRACE NRG Squamous epithelial cells detection in urine sediment by light microscopy 10-25 NRG Crystals detection in urine sediment by light microscopy NONE NRG Casts detection in urine sediment by light microscopy NONE NRG Mucus detection in urine sediment by light microscopy NEGATIVE NRG Complete urinalysis with reflex to culture NO NRG Methicillin resistant Staphylococcus aureus (MRSA) screening culture - 14:10 Methicillin resistant Staphylococcus aureus (MRSA) screening culture NEG NRG Capillary blood glucose measurement by glucometer (mass/volume) - 08/03/17 07: 17 Capillary blood glucose measurement by glucometer (mass/volume) 329 mg/dL 70-110 Capillary blood glucose measurement by glucometer (mass/volume) - 08/03/17 08: 01 Capillary blood glucose measurement by glucometer (mass/volume) 303 mg/dL 70-110 Capillary blood glucose measurement by glucometer (mass/volume) - 08/03/17 09: 23 Capillary blood glucose measurement by glucometer (mass/volume) 134 mg/dL 70-110 Capillary blood glucose measurement by glucometer (mass/volume) - 08/03/17 10: 48 Capillary blood glucose measurement by glucometer (mass/volume) 187 mg/dL 70-110 Capillary blood glucose measurement by glucometer (mass/volume) - 08/03/17 11: 45 Capillary blood glucose measurement by glucometer (mass/volume) 223 mg/dL 70-110 Methicillin resistant Staphylococcus aureus (MRSA) screening culture - 11:30 Methicillin resistant Staphylococcus aureus (MRSA) screening culture NEG NRG Encounters ACCT No. Visit Date/Time Discharge Status Pt. Type Provider Facility Loc./Unit Complaint [id number] 09/22/2017 10:45:00 09/22/2017 23:59:59 CLS Outpatient ROSALINA VALDES MD [facility] REHAB S/P R KNEE SCOPE; OA R KNEE [id number] 09/22/2017 11:25:00 09/22/2017 12:41:00 DIS Outpatient ROSALINA VALDES MD [facility] PREOP LEFT KNEE TORN MEDIAL/LATERAL MENISCUS [id number] 08/03/2017 06:30:00 08/03/2017 11:52:00 DIS Outpatient ROSALINA VALDES MD [facility] SDC RIGHT KNEE OSTEOARTHRITIS [id number] 08/01/2017 13:19:00 08/01/2017 14:23:00 DIS Outpatient ROSALINA VALDES MD [facility] PREOP RIGHT KNEE OSTEOARTHRITIS [id number] 06/20/2017 14:51:00 06/20/2017 23:59:59 CLS Outpatient CAMERON HO MD [facility] LAB E10.65 [id number] 05/24/2017 10:49:00 05/24/2017 23:59:59 CLS Outpatient GUY CURRY, SHELL R [facility] RAD CHRONIC PAIN OF LEFT KNEE [id number] 05/13/2017 14:51:00 05/13/2017 23:59:59 CLS Outpatient SONIA ALVAREZ APRN [facility] RAD M25.562 [id number] 03/24/2017 11:32:00 03/24/2017 23:59:59 CLS Outpatient CAMERON HO MD [facility] LAB E66.9, E03.9, E78.5, E87.5, I10, R31.29 [id number] 12/15/2016 08:22:00 12/15/2016 23:59:59 CLS Outpatient CAMERON HO MD [facility] LAB E10.65 E669.9 E78.5 I10 [id number] 09/14/2016 11:26:00 09/14/2016 23:59:59 CLS Outpatient CAMERON HO MD [facility] LAB E10.65 [id number] 09/06/2016 14:24:00 09/06/2016 23:59:59 CLS Outpatient SONIA ALVAREZ APRN [facility] RAD J20.8 [id number] 07/13/2016 21:00:00 07/14/2016 06:30:00 DIS Outpatient BEA COLEMAN APRN [facility] SLEEP HYPERSOMNIA, PARASOMNIA,PAROXYSMAL AFIB,SLEEP DISOR [id number] 06/23/2016 12:55:00 06/23/2016 23:59:59 CLS Outpatient BEA COLEMAN APRN [facility] RT SOB ON EXERTION, PNEUMONIA [id number] 06/08/2016 11:06:00 06/08/2016 23:59:59 CLS Outpatient CAMERON HO MD [facility] LAB E10.65 [id number] 05/17/2016 01:08:00 05/18/2016 12:50:00 DIS Inpatient HEATHER HOOKS DO [facility] ICU W V D; PNEUMONIA;DKA [id number] 04/03/2016 04:25:00 04/04/2016 13:13:00 DIS Inpatient GUY CURRY, SEHLL Walsh [facility] 4TH INTRACTABLE N/V, HYPERGLYCEMIA [id number] 02/25/2016 10:48:00 02/25/2016 23:59:59 CLS Outpatient CAMERON HO MD [facility] LAB TYPE 1 DIABETES MELLITUS UNCONTROLLED [id number] 02/24/2016 11:17:00 02/24/2016 11:17:00 CAN Preadmit CAMERON HO MD [facility] LAB DM, RN CARDIAC CATH DRUG THERAPY, OBESITY, HLP, HTN [id number] 11/20/2015 08:28:00 11/20/2015 23:59:59 CLS Outpatient CAMERON HO MD [facility] LAB TYPE 1 DIABETES, HYPERLIPIDEMIA,HYPERKALEMIA, HTN, [id number] 08/12/2015 10:40:00 08/12/2015 23:59:59 CLS Outpatient CAMERON HO MD [facility] LAB DM TYPE I WITH HYPERGLYCEMIA [id number] 05/05/2015 08:02:00 05/05/2015 23:59:59 CLS Outpatient CAMERON HO MD [facility] LAB HYPOTHYROIDSIM,DM, HYPERLIPIDEMIA [id number] 01/23/2015 11:43:00 01/23/2015 23:59:59 CLS Outpatient CAMERON HO MD [facility] LAB DM TYPE 1,HEMATURIA [id number] 10/08/2014 08:27:00 10/08/2014 23:59:59 CLS Outpatient CAMERON HO MD [facility] LAB [id number] 04/24/2014 10:01:00 04/24/2014 23:59:59 CLS Outpatient AURORA DENNEY [facility] CARD [id number] 04/18/2014 12:34:00 04/18/2014 17:47:00 DIS Emergency AURORA DENNEY [facility] ER [id number] 04/14/2014 00:12:00 04/14/2014 23:59:59 CLS Preadmit KARTIK BRANDT APRN [facility] SURG RCR BIT BY BAT [id number] 01/24/2014 09:49:00 04/13/2014 00:01:00 DIS Outpatient KARTIK BRANDT APRN [facility] SURG RCR [id number] 04/09/2014 00:11:00 04/09/2014 23:59:59 CLS Preadmit CAMERON HO MD [facility] LAB MICROSCOPIC HEMATURIA [id number] 01/08/2014 13:38:00 04/08/2014 00:01:00 DIS Outpatient CAMERON HO MD [facility] LAB [id number] 03/28/2014 08:18:00 03/28/2014 23:59:59 CLS Outpatient CAMERON HO MD [facility] LAB [id number] 01/24/2014 09:19:00 01/24/2014 23:59:59 CLS Outpatient ABIGAIL CURRY, JAYNE Platt [facility] RAD [id number] 01/24/2014 09:15:00 01/24/2014 23:59:59 CLS Outpatient CAMERON HO MD [facility] RAD [id number] 01/10/2014 17:12:00 01/10/2014 18:05:00 DIS Emergency [id number] 12/19/2013 11:32:00 12/19/2013 23:59:59 CLS Outpatient [id number] 09/20/2013 10:34:00 09/20/2013 23:59:59 CLS Outpatient [id number] 06/14/2013 09:29:00 06/14/2013 23:59:59 CLS Outpatient [id number] 03/08/2013 08:02:00 03/08/2013 23:59:59 CLS Outpatient [id number] 11/30/2012 10:31:00 11/30/2012 23:59:59 CLS Outpatient [id number] 09/28/2017 08:00:00 PEN Preadmit LUCIO CURRY, ROSALINA Santacruz [facility] LEFT KNEE TORN MEDIAL AND LATERAL MENISCUS [id number] 07/04/2014 10:27:00 Document Registration [id number] 10/14/2011 15:45:00 Document Registration [id number] 05/31/2013 14:17:00 05/31/2013 23:59:59 CLS Outpatient [id number] 01/23/2015 11:44:14 ACT Document Registration
[2017-09-27] MEDS ORDERED: NS IV 1000 ML 1,000 ML IV ONE (09:20)
[2017-09-27] MEDS ORDERED: ONDANSETRON 4 MG/2 ML (SDV) Z0FRAN IVP ONE ×2 (09:30→14:15)
[2017-09-27] MEDS ORDERED: HYOSCYAMINE 0.125 MG (LEVSIN) TAB SL ONE (09:30)
[2017-09-27] MEDS ORDERED: raNItidine 50 MG/2 ML INJ (ZANTAC) IJ ONE (09:30)
[2017-09-27 10:01] LABS: BASOPHILS % (AUTO) 0 % (0-10); EOSINOPHILS % (AUTO) 0 % (0-10); HEMATOCRIT 35 % (35-52); HEMOGLOBIN 11.6 G/DL (11.5-16.0); LYMPHOCYTES # (AUTO) 0.8 X 10^3 (1.0-4.0); LYMPHOCYTES % (AUTO) 7 % (12-44); MEAN CORPUSCULAR HEMOGLOBIN 29 PG (25-34); MEAN CORPUSCULAR HGB CONC 33 G/DL (32-36); MEAN CORPUSCULAR VOLUME 88 FL (80-99); MEAN PLATELET VOLUME 10.1 FL (7.4-10.4); MONOCYTES # (AUTO) 0.7 X 10^3 (0.0-1.0); MONOCYTES % (AUTO) 6 % (0-12); NEUTROPHILS % (AUTO) 88 % (42-75); PLATELET COUNT 459 10^3/uL (130-400); RED BLOOD COUNT 4.02 10^6/uL (4.35-5.85); RED CELL DISTRIBUTION WIDTH 14.6 % (10.0-14.5); WHITE BLOOD COUNT 12.5 10^3/uL (4.3-11.0)
[2017-09-27 10:27] LABS: BAND NEUTROPHILS 0 %; BASOPHILS % (MANUAL) 0 %; EOSINOPHILS % (MANUAL) 0 %; LYMPHOCYTES % (MANUAL) 9 %; MONOCYTES % (MANUAL) 4 %; NEUTROPHILS % (MANUAL) 87 %; RBC MORPH NORMAL
[2017-09-27 10:29] LABS: ALANINE AMINOTRANSFERASE 13 U/L (0-55); ALKALINE PHOSPHATASE 96 U/L (40-136); BILIRUBIN,TOTAL 0.6 MG/DL (0.1-1.0); BUN/CREATININE RATIO 21; CALCIUM 10.2 MG/DL (8.5-10.1); CARBON DIOXIDE 20 MMOL/L (21-32); CHLORIDE 103 MMOL/L (98-107); CREATININE SERUM 0.85 MG/DL (0.60-1.30); GFR ESTIMATED > 60; GLUCOSE 272 MG/DL (70-105); MAGNESIUM 1.8 MG/DL (1.8-2.4); POTASSIUM 4.5 MMOL/L (3.6-5.0); SODIUM 139 MMOL/L (135-145); TOTAL PROTEIN 7.8 GM/DL (6.4-8.2)
[2017-09-27 10:49] LABS: FREE T4 (FREE THYROXINE) 1.23 NG/DL (0.70-1.48)
[2017-09-27] MEDS ORDERED: PROMETHAZINE INJ 25 MG/ML (PHENERGAN) AMP IVP ONE (11:30)
[2017-09-27] MEDS ORDERED: LACTATED RINGERS 1,000 ML IV ONE (11:34)
[2017-09-27] MEDS ORDERED: SCOPOLAMINE 1.5 MG (TRANSDERM-SCOP) PATCH TD ONE (12:00)
[2017-09-27] MEDS ORDERED: fentaNYL INJECTION 100 MCG/2 ML AMP IVP ONE (12:00)
--- NOTE | 2017-09-27 12:04 | ED GI ---
General Chief Complaint: Abdominal/GI Problems Stated Complaint: VOMITING/DIARRHEA Nursing Triage Note: PT STATES DIARRHEA BEGAN YESTERDAY AFTERNOON. DIARRHEA HAS STOPPED THIS MORNING BUT PT C/O NAUSEA AND ABDOMINAL PAIN. Sepsis Screen: No Definite Risk Source of Information: Patient Exam Limitations: No Limitations History of Present Illness Date Seen by Provider: September 27, 2017 Time Seen by Provider: 09:12 Initial Comments This 67-year-old woman presents to the emergency room with complaints of vomiting and diarrhea since yesterday afternoon. The vomiting has persisted but the diarrhea stopped this morning. Patient has some generalized mild abdominal cramping/pain. She denies any fever. She is supposed to have surgery on her knee tomorrow but that has been postponed due to her acute illness. Patient takes Eliquis for atrial fibrillation which is presently on hold in preparation for surgery. Allergies and Home Medications Allergies Coded Allergies: insulin detemir (Verified Allergy, Intermediate, RASH, 09/22/17) red bumps at insertion site of injection Home Medications Apixaban 5 Mg Tablet, 5 MG PO BID, (Reported) Cetirizine HCl 10 Mg Tablet, 10 MG PO DAILY, (Reported) Clonidine HCl 0.2 Mg Tablet, 0.2 MG PO BID, (Reported) Diltiazem HCl 300 Mg Cap.er.24h, 300 MG PO DAILY, (Reported) Doxazosin Mesylate 2 Mg Tablet, 2 MG PO BID, (Reported) Enalapril Maleate 10 Mg Tablet, 10 MG PO DAILY, (Reported) Flaxseed Oil 1,000 Mg Capsule, 2,000 MG PO DAILY, (Reported) Flecainide Acetate 150 Mg Tablet, 150 MG PO BID, (Reported) Hydrocodone/Acetaminophen 1 Each Tablet, 1 EACH PO Q4H Prescribed by: ROSALINA VALDES on 08/03/17 0726 Insulin Glargine,Hum.rec.anlog 100 Unit/1 Ml Vial, 27 UNIT SQ HS, (Reported) Insulin Lispro 100 Unit/1 Ml Cartridge, 0 SQ AC, (Reported) Levothyroxine Sodium 100 Mcg Tablet, 100 MCG PO DAILY, (Reported) Lutein 6 Mg Capsule, 6 MG PO DAILY, (Reported) Montelukast Sodium 10 Mg Tablet, 10 MG PO DAILY, (Reported) Multivitamin 1 Each Tablet, 1 EACH PO DAILY, (Reported) Omeprazole 40 Mg Capsule.dr, 40 MG PO DAILY, (Reported) Ondansetron 4 Mg Tab.rapdis, 4 MG SL Q4H PRN for NAUSEA/VOMITING-1ST LINE Prescribed by: SHIN GLORIA on 09/27/171456 Pravastatin Sodium 40 Mg Tablet, 40 MG PO DAILY, (Reported) Promethazine HCl 25 Mg Tablet, 25 MG PO Q6H PRN for NAUSEA/VOMITING Prescribed by: SHIN GLORIA on 09/27/171456 Terbinafine HCl 250 Mg Tablet, 250 MG PO DAILY, (Reported) Tramadol HCl 50 Mg Tablet, 50 MG PO BID PRN for PAIN-MILD TO MODERATE, (Reported ) Patient Home Medication List Home Medication List Reviewed: Yes Review of Systems Constitutional: no symptoms reported EENTM: No Symptoms Reported Respiratory: No Symptoms Reported Cardiovascular: See HPI Gastrointestinal: See HPI Genitourinary: No Symptoms Reported Musculoskeletal: other (chronic knee pain) Skin: no symptoms reported Psychiatric/Neurological: No Symptoms Reported Endocrine: No Symptoms Reported Hematologic/Lymphatic: No Symptoms Reported Past Uohuikd-Gufozt-Oacuap Hx Patient Social History Alcohol Use: Denies Use Recreational Drug Use: No 2nd Hand Smoke Exposure: No Recent Foreign Travel: No Contact w/Someone Who Travel: No Recent Infectious Disease Expo: No Recent Hopitalizations: No Physical Abuse: No Sexual Abuse: No Immunizations Up To Date Tetanus Booster (TDap): Less than 5yrs Date of Pneumonia Vaccine: May 04, 2016 Date of Influenza Vaccine: Feb 28, 2017 Seasonal Allergies Seasonal Allergies: No Past Medical History Surgeries: Yes (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, RIGHT KNEE SCOPE) Bladder Surgery, Breast, Hysterectomy Respiratory: Yes (HAD ASTHMA A CHILD, LUNG PROBLEMS WHEN PT GETS COLDS) Asthma, Chronic Bronchitis, Sleep Apnea Currently Using CPAP: Yes Currently Using BIPAP: No Cardiac: Yes (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 12) Atrial Fibrillation, High Cholesterol, Hypertension Neurological: No 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 Disorders: No 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 Sexually Transmitted Disease: No HIV/AIDS: No Gastrointestinal: Yes Gastroesophageal Reflux Musculoskeletal: Yes (RT KNEE OSTEOARTHRITIS) Arthritis Endocrine: Yes Diabetes, Insulin dep, Hypothyroidsim Loss of Vision: Bilateral Hearing Impairment: Denies Cancer: No Psychosocial: No Nursing Suicide Risk Score: 0 Integumentary: No Blood Disorders: No Adverse Reaction/Blood Tranf: No (N/A) Family Medical History Arthritis 19 FATHER 19 MOTHER Asthma 19 FATHER Cardiovascular disease 19 FATHER 19 MOTHER Cataracts 19 MOTHER Deafness or hearing loss 19 FATHER Dementia 19 MOTHER Diabetes mellitus G8 SISTER G8 SISTER Glaucoma 19 FATHER Hypertension 19 MOTHER Prostate cancer 19 FATHER Respiratory disorder 19 FATHER Thyroid disease G8 SISTER No Pertinent Family Hx Physical Exam Vital Signs Vital Signs - First Documented 09/27/17 09:05 Temp 98.6 Pulse 109 Resp 16 B/P (MAP) 190/61 (104) Pulse Ox 97 O2 Delivery Room Air Capillary Refill : Less Than 3 Seconds General Appearance: WD/WN, no apparent distress HEENT: normal ENT inspection, other (oropharynx dry) Neck: supple, normal inspection Respiratory: lungs clear, normal breath sounds, no respiratory distress, no accessory muscle use Cardiovascular: no edema, no murmur, tachycardia Gastrointestinal: normal bowel sounds, non tender, soft Extremities: normal inspection, no pedal edema Neurologic/Psychiatric: shoulder boner II-XII nml as tested, no motor/sensory deficits, alert, normal mood/affect, oriented x 3 Skin: normal color, warm/dry Progress/Results/Core Measures Results/Orders Lab Results Laboratory Tests Test 09/27/17 09:47 09/27/17 10:09 09/27/17 13:30 09/27/17 14:00 Range/Units White Blood Count 12.5 H 4.3-11.0 10^3/uL Red Blood Count 4.02 L 4.35-5.85 10^6/uL Hemoglobin 11.6 11.5-16.0 G/DL Hematocrit 35 35-52 % Mean Corpuscular Volume 88 80-99 FL Mean Corpuscular Hemoglobin 29 25-34 PG Mean Corpuscular Hemoglobin Concent 33 32-36 G/DL Red Cell Distribution Width 14.6 H 10.0-14.5 % Platelet Count 459 H 130-400 10^3/uL Mean Platelet Volume 10.1 7.4-10.4 FL Neutrophils (%) (Auto) 88 H 42-75 % Lymphocytes (%) (Auto) 7 L 12-44 % Monocytes (%) (Auto) 6 0-12 % Eosinophils (%) (Auto) 0 0-10 % Basophils (%) (Auto) 0 0-10 % Neutrophils # (Auto) 11.0 H 1.8-7.8 X 10^3 Lymphocytes # (Auto) 0.8 L 1.0-4.0 X 10^3 Monocytes # (Auto) 0.7 0.0-1.0 X 10^3 Eosinophils # (Auto) 0.0 0.0-0.3 10^3/uL Basophils # (Auto) 0.0 0.0-0.1 10^3/uL Neutrophils % (Manual) 87 % Lymphocytes % (Manual) 9 % Monocytes % (Manual) 4 % Eosinophils % (Manual) 0 % Basophils % (Manual) 0 % Band Neutrophils 0 % Blood Morphology Comment NORMAL Sodium Level 139 135-145 MMOL/L Potassium Level 4.5 3.6-5.0 MMOL/L Chloride Level 103 98-107 MMOL/L Carbon Dioxide Level 20 L 21-32 MMOL/L Anion Gap 16 H 5-14 MMOL/L Blood Urea Nitrogen 18 7-18 MG/DL Creatinine 0.85 0.60-1.30 MG/DL Estimat Glomerular Filtration Rate > 60 BUN/Creatinine Ratio 21 Glucose Level 272 H 70-105 MG/DL Calcium Level 10.2 H 8.5-10.1 MG/DL Magnesium Level 1.8 1.8-2.4 MG/DL Total Bilirubin 0.6 0.1-1.0 MG/DL Aspartate Amino Transf (AST/SGOT) 16 5-34 U/L Alanine Aminotransferase (ALT/SGPT) 13 0-55 U/L Alkaline Phosphatase 96 40-136 U/L Total Protein 7.8 6.4-8.2 GM/DL Albumin 4.0 3.2-4.5 GM/DL Thyroid Stimulating Hormone (TSH) 0.44 0.35-4.94 UIU/ML Free Thyroxine 1.23 0.70-1.48 NG/DL Glucometer 237 H 224 H 70-110 MG/DL Urine Color YELLOW Urine Clarity CLEAR Urine pH 5 5-9 Urine Specific [place] 1.025 H 1.016-1.022 Urine Protein 2+ H NEGATIVE Urine Glucose (UA) 3+ H NEGATIVE Urine Ketones 4+ H NEGATIVE Urine Nitrite NEGATIVE NEGATIVE Urine Bilirubin 1+ H NEGATIVE Urine Urobilinogen 1 NORMAL MG/DL Urine Leukocyte Esterase 1+ H NEGATIVE Urine RBC (Auto) 2+ H NEGATIVE Urine RBC 2-5 H /HPF Urine WBC 2-5 /HPF Urine Squamous Epithelial Cells 10-25 H /HPF Urine Crystals NONE /LPF Urine Bacteria NEGATIVE /HPF Urine Casts PRESENT /LPF Urine Hyaline Casts 2-5 H /LPF Urine Mucus SMALL H /LPF Urine Culture Indicated NO My Orders Orders - SHIN SANTIAGO MD Cbc With Automated Diff (09/27/17 09:20) Comprehensive Metabolic Panel (09/27/17 09:20) Magnesium (09/27/17 09:20) Thyroid Stimulating Hormone (09/27/17 09:20) Saline Lock/Iv-Start (09/27/17 09:20) Ns Iv 1000 Ml (Sodium Chloride 0.9%) (09/27/17 09:20) Free T4 (Free Thyroxine) (09/27/17 09:20) Ondansetron Injection (Zofran Injectio (09/27/17 09:30) Ranitidine Injection (Zantac Injection) (09/27/17 09:30) Hyoscyamine Sl Tablet (Levsin Sl Tablet) (09/27/17 09:30) Manual Differential (09/27/17 09:47) Accucheck Stat ONCE (09/27/17 10:23) Promethazine Injection (Phenergan Injec (09/27/17 11:30) Saline Lock/Iv-Start (09/27/17 11:34) Lactated Ringers (Lr 1000 Ml Iv Solution (09/27/17 11:34) Fentanyl Injection (Sublimaze Injection (09/27/17 12:00) Scopolamine Patch (Transderm-Scop Patch) (09/27/17 12:00) Accucheck Stat ONCE (09/27/17 13:10) Ua Culture If Indicated (09/27/17 14:11) Ondansetron Injection (Zofran Injectio (09/27/17 14:15) Medications Given in ED Current Medications Medications Dose Ordered Sig/Michelle Route Start Time Stop Time Status Last Admin Dose Admin Fentanyl Citrate 50 mcg ONCE ONCE IVP 09/27/17 12:00 09/27/17 12:01 DC 09/27/17 12:10 50 MCG Lactated Ringer's 1,000 ml @ 0 mls/hr Q0M ONCE IV 09/27/17 11:34 09/27/17 11:35 DC 09/27/17 12:07 1,000 MLS/HR Ondansetron HCl 4 mg ONCE ONCE IVP 09/27/17 14:15 5/15/18 14:16 DC 09/27/17 14:18 4 MG Promethazine HCl 25 mg ONCE ONCE IVP 09/27/17 11:30 09/27/17 11:31 DC 09/27/17 11:23 25 MG Scopolamine 1.5 mg ONCE ONCE TD 09/27/17 12:00 09/27/17 12:01 DC 09/27/17 12:03 1.5 MG Vital Signs/I&O 09/27/17 09/27/17 09:05 15:17 Temp 98.6 100.3 Pulse 109 90 Resp 16 18 B/P (MAP) 190/61 (104) 155/66 Pulse Ox 97 98 O2 Delivery Room Air Room Air Blood Pressure Mean: 104 FSBG Bedside Testing Finger Stick Blood Glucose: 237 Blood Glucose Action Taken: JACK NOTIFIED Progress Progress Note #1: Time: 12:02 Progress Note Patient has received a liter of IV normal saline. Levsin was given for abdominal cramping. Zofran was given for nausea. Phenergan was then given for refractory nausea. Nausea was still not well-controlled. Scopolamine patch has been ordered. Patient requested medication for her knee pain. Fentanyl was ordered. Labs were relatively unremarkable. There is a minimal elevation in WBC and hyperglycemia was noted. Progress Note #2: Time: 13:14 Progress Note Patient is still tachycardic and hypertensive. She also still complains of improved but persistent nausea. She is going to attempt taking her clonidine and Cartia. We will check her blood sugar again also has she states elevated blood sugars cause her to be nauseated. Progress Note #3: Time: 14:53 Progress Note Patient was able to keep down her diltiazem and clonidine. Nausea has finally improved. Heart rate is now in the 90s. Systolic blood pressure is 139. Patient feels ready for dismissal. Departure Impression Primary Impression: Nausea vomiting and diarrhea Additional Impressions: Chronic knee pain Qualified Codes: M25.569 - Pain in unspecified knee; G89.29 - Other chronic pain Abdominal cramping Atrial fibrillation Qualified Codes: I48.2 - Chronic atrial fibrillation Hypertension Qualified Codes: I10 - Essential (primary) hypertension Disposition: 01 HOME, SELF-CARE Condition: Improved Departure-Patient Inst. Decision time for Depature: 14:54 Referrals: SHELL TOVAR MD (PCP/Family) Primary Care Physician Patient Instructions: Nausea and Vomiting, Adult Add. Discharge Instructions: Drink plenty of clear liquids. Gradually advance your diet with small quantities of bland food as tolerated. Resume your home medications. Use Zofran (ondansetron) dissolved under the tongue every 4 hours as needed for primary nausea control. Take Phenergan as a backup nausea medication. You may remove the scopolamine patch at any time. It may continue to work up to 3 days. Return to emergency room if you have worsening problems. All discharge instructions reviewed with patient and/or family. Voiced understanding. Scripts Promethazine HCl (Promethazine Tablet) 25 Mg Tablet 25 MG PO Q6H PRN for NAUSEA/VOMITING, #10 TAB Prov: SHIN SANTIAGO MD 09/27/17 Ondansetron (Zofran Odt) 4 Mg Tab.rapdis 4 MG SL Q4H PRN for NAUSEA/VOMITING-1ST LINE, #10 TAB Prov: SHIN SANTIAGO MD 09/27/17 SHIN SANTIAGO MD September 27, 2017 12:04
[2017-09-27 14:17] LABS: CLARITY,URINE CLEAR; COLOR,URINE YELLOW; GLUCOSE, URINE (UA) 3+ (NEGATIVE); KETONES,URINE 4+ (NEGATIVE); LEUKOCYTE ESTERASE ,URINE 1+ (NEGATIVE); NITRITE,URINE NEGATIVE (NEGATIVE); PH,URINE 5 (5-9); PROTEIN,URINE 2+ (NEGATIVE); UROBILINOGEN,URINE 1 MG/DL (NORMAL)
[2017-09-27 14:34] LABS: BACTERIA,URINE NEGATIVE /HPF; BILIRUBIN,URINE 1+ (NEGATIVE)
[2017-09-27] MEDS ORDERED: ONDA4TAB8 SL (14:57)
[2017-09-27] MEDS ORDERED: PROM25TA14 PO (14:57)
[2017-09-27 15:17] VITALS: BP 155/66
== END 2017-09-27 15:17 | disposition home or self-care (01) ==
LOC: EDUNIT# 08:59 → ER 09:01
DX: R11.2 Nausea with vomiting, unspecified (principal); R19.7 Diarrhea, unspecified; R10.9 Unspecified abdominal pain; M25.569 Pain in unspecified knee; G89.29 Other chronic pain; I10 Essential (primary) hypertension; I48.91 Unspecified atrial fibrillation; G47.30 Sleep apnea, unspecified; J45.909 Unspecified asthma, uncomplicated; E78.00 Pure hypercholesterolemia, unspecified; K21.9 Gastro-esophageal reflux disease without esophagitis; M17.11 Unilateral primary osteoarthritis, right knee; E03.9 Hypothyroidism, unspecified; E11.9 Type 2 diabetes mellitus without complications; Z88.8 Allergy status to other drugs, medicaments and biological substances; Z79.01 Long term (current) use of anticoagulants; Z82.49 Family history of ischemic heart disease and other diseases of the circulatory system; Z80.42 Family history of malignant neoplasm of prostate; Z90.710 Acquired absence of both cervix and uterus
CPT/HCPCS: 36415; 80053; 81000; 82962; 83735; 84439; 84443; 85007; 85027; 96361; 96374; 96375; 96376

== ENCOUNTER 2017-10-12 06:05 | Day surgery (SDC) | payer MEDICARE, OTHER ==
--- NOTE | 2017-09-19 16:18 | HISTORY AND PHYSICAL ---
DATE OF SERVICE: ADMISSION HISTORY AND PHYSICAL DATE OF ADMISSION: 09/28/2017. REASON FOR ADMISSION: This will be for date of service of 09/28/2017 for outpatient left knee arthroscopy. HISTORY OF PRESENT ILLNESS: The patient is a 67-year-old female with known medial and lateral meniscal tears of her left knee. She has tried treatment with injections, anti-inflammatories and rest without relief. She reports functional impairment because of the knee. She has tried physical therapy without relief. She reports swelling, catching and locking in her knee. Due to failure to improve with conservative measures, the patient has elected to proceed with surgical intervention. REVIEW OF SYSTEMS: No chest pain, no shortness of breath, no dysuria. PAST MEDICAL HISTORY: Atrial fibrillation, asthma, diabetes mellitus. PAST SURGICAL HISTORY: Breast cyst excision, hysterectomy, right knee arthroscopy. PRIMARY CARE PROVIDER: Dr. Knott. MEDICATIONS: 1. Terbinafine. 2. Omeprazole. 3. Montelukast. 4. Cetirizine. 5. Insulin. 6. Metformin. 7. Lutein. 8. Clonidine. 9. . 10. Lantus. 11. Pravastatin. 12. Flecainide. 13. Enalapril. 14. Doxazosin. 15. Diltiazem. 16. Pradaxa. 17. Tramadol. ALLERGIES: No known drug allergies. SOCIAL HISTORY: The patient denies alcohol or tobacco use. RADIOGRAPHS: Reveal patellofemoral joint space with mild medial joint space narrowing. PHYSICAL EXAMINATION: GENERAL: The patient is well developed, well nourished, in no acute distress. HEENT: Normocephalic, atraumatic. Pupils are equal, round and reactive to light. Oropharynx is clear. NECK: Supple with no lymphadenopathy. LUNGS: Clear to auscultation bilaterally. HEART: Regular rate and rhythm. ABDOMEN: Soft, nontender, nondistended. EXTREMITIES: The left knee demonstrates moderate effusion. She is tender along her medial and lateral joint lines and has pain medially and laterally with Deborah's. Range of motion is 0/0/130 with no varus valgus laxity. Negative anterior and posterior drawer. IMPRESSION: Left knee medial meniscal and lateral meniscal tears with associated chondromalacia. PLAN: Left knee arthroscopy with partial medial and lateral meniscectomies and chondroplasty. The risks, benefits, options, ramifications and recovery have been discussed at length with the patient. She understands and wishes to proceed. This will be for left knee arthroscopy as an outpatient on 09/28/2017. 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
[~2017-10-12] VITALS: Ht 165.1 cm; Wt 96.2 kg
[~2017-10-12 06:05] MED LIST changes: +ONDA4TAB8 SL; +PROM25TA14 PO
--- OUTSIDE RECORDS SUMMARY | 2017-10-12 06:12 | XMS REPORT | Continuity of Care Document ---
Author Author [facility] Organization [facility] Address Unknown Phone Unavailable Allergies Active Description Code Type Severity Reaction Onset Reported/Identified Relationship to Patient Clinical Status Yes No Known Drug Allergies [id number] Drug Allergy Unknown N/A 10/14/2011 Yes insulin detemir [id number] Drug Allergy Moderate RASH 09/22/2017 Medications There [...] 04/18/2014 VIC CURRY, CAMERON Ot 401.1 04/18/2014 VIC CURRY, CAMERON Ot V58.69 04/18/2014 VIC CURRY, [...] 04/29/2014 VIC CURRY, CAMERON Ot 276.7 04/29/2014 VIC CURRY, CAMERON Ot 401.1 04/29/2014 VIC CURRY, CAMERON Ot V58.69 05/13/2014 VIC UCRRY, CAMERON Ot 244.8 05/13/2014 IVC CURRY, CAMERON Ot 250.03 05/13/2014 VIC CURRY, CAMERON Ot 272.4 05/13/2014 VIC CURRY, CAMERON Ot 276.7 05/13/2014 VIC CURRY, CAMERON Ot 401.1 05/13/2014 VIC CURRY, CAMERON Ot V58.69 06/11/2014 BOB DUNCAN, AURORA L Ot 787.01 06/11/2014 BOB PA, AURORA [...] CURRY, CAMERON Ot R31.2 05/27/2015 VIC CURRY, CMAERON Ot Z79.899 08/13/2015 VIC CURRY, CAMERON Ot E03.9 08/13/2015 VIC CURRY, CAMERON Ot E10.65 08/13/2015 VIC CURRY, CAMERON Ot E78.5 08/13/2015 VIC CURRY, CAMERON Ot E87.5 08/13/2015 VIC CURRY, CAMERON Ot I10 08/13/2015 VIC CURRY, CAMERON Ot Z79.899 09/04/2015 VIC CURRY, CAMERON Ot E03.9 HYPOTHYROIDISM, UNSPECIFIED 09/04/2015 VIC CURRY, CAMERON Ot E10.65 TYPE 1 DIABETES MELLITUS WITH HYPERGLYCE 09/04/2015 VIC CURRY, CAMERON Ot E78.5 HYPERLIPIDEMIA, UNSPECIFIED 09/04/2015 VIC CURRY, CAMERON Ot E87.5 HYPERKALEMIA 09/04/2015 VIC CURRY, CAMERON Ot I10 ESSENTIAL (PRIMARY) HYPERTENSION 09/04/2015 VIC CURRY, CAMERON Ot Z79.899 OTHER TRANSPORTATION PROGRAM DIRECTOR (CURRENT) DRUG THERAPY 11/21/2015 CAMERON HO MD Ot E03.9 HYPOTHYROIDISM, UNSPECIFIED 11/21/2015 CAMERON HO MD Ot E10.65 TYPE 1 DIABETES MELLITUS WITH HYPERGLYCE 11/21/2015 CAMERON HO MD Ot E66.9 OBESITY, UNSPECIFIED 11/21/2015 CAMERON HO MD Ot E78.5 HYPERLIPIDEMIA, UNSPECIFIED 11/21/2015 CAMERON HO MD Ot E87.5 HYPERKALEMIA 11/21/2015 CAMERON HO MD Ot Z79.899 OTHER SENIOR LIVING (CURRENT) DRUG THERAPY 12/25/2015 CAMERON HO MD Ot E03.9 HYPOTHYROIDISM, UNSPECIFIED 12/25/2015 CAMERON HO MD Ot E10.65 TYPE 1 DIABETES MELLITUS WITH HYPERGLYCE 12/25/2015 CAMERON HO MD Ot E66.9 OBESITY, UNSPECIFIED 12/25/2015 CAMERON HO MD Ot E78.5 HYPERLIPIDEMIA, UNSPECIFIED 12/25/2015 CAMERON HO MD Ot E87.5 HYPERKALEMIA 12/25/2015 CAMERON HO MD Ot Z79.899 OTHER TRANSPORTATION PROGRAM DIRECTOR (CURRENT) DRUG THERAPY 03/17/2016 CAMERON HO MD Ot E10.65 TYPE 1 DIABETES MELLITUS WITH HYPERGLYCE 04/03/2016 CAMERON HO MD Ot 599.72 MICROSCOPIC HEMATURIA 04/03/2016 KARTIK BRANDT PAINT SPRAY INSPECTOR Ot V04.5 VACCIN FOR RABIES 04/04/2016 GUY [...] 06/08/2016 CAMERON HO MD Ot Z79.899 OTHER SENIOR LIVING (CURRENT) DRUG THERAPY 06/08/2016 CAMERON HO MD Ot E03.9 HYPOTHYROIDISM, UNSPECIFIED 06/08/2016 CAMERON HO MD Ot E10.65 TYPE 1 DIABETES MELLITUS WITH HYPERGLYCE 06/08/2016 CAMERON HO MD Ot E78.5 HYPERLIPIDEMIA, UNSPECIFIED 06/08/2016 CAMERON HO MD Ot E87.5 HYPERKALEMIA 06/08/2016 CAMERON HO MD Ot I10 ESSENTIAL (PRIMARY) HYPERTENSION 06/08/2016 CAMERON HO MD Ot Z79.899 OTHER SENIOR LIVING (CURRENT) DRUG THERAPY 06/08/2016 CAMERON HO MD Ot E03.9 HYPOTHYROIDISM, UNSPECIFIED 06/08/2016 CAMERON HO MD Ot E10.65 TYPE 1 DIABETES MELLITUS WITH HYPERGLYCE 06/08/2016 CAMERON HO MD Ot E66.9 OBESITY, UNSPECIFIED 06/08/2016 CAMERON HO MD Ot E78.5 HYPERLIPIDEMIA, UNSPECIFIED 06/08/2016 CAMERON HO MD Ot E87.5 HYPERKALEMIA 06/08/2016 CAMERON HO MD Ot Z79.899 OTHER TRANSPORTATION PROGRAM DIRECTOR (CURRENT) DRUG THERAPY 06/08/2016 CAMERON HO MD Ot E10.65 TYPE 1 DIABETES MELLITUS WITH HYPERGLYCE 06/24/2016 BEA COLEMAN PAINT SPRAY INSPECTOR Ot J18.9 PNEUMONIA, UNSPECIFIED ORGANISM 06/24/2016 BEA COLEMAN PAINT SPRAY INSPECTOR Ot R06.02 SHORTNESS OF BREATH 06/24/2016 BEA COLEMAN PAINT SPRAY INSPECTOR Ot J18.9 PNEUMONIA, UNSPECIFIED ORGANISM 06/24/2016 BEA COLEMAN PAINT SPRAY INSPECTOR Ot R06.02 SHORTNESS OF BREATH 07/06/2016 CAMERON HO MD Ot E10.65 TYPE 1 DIABETES MELLITUS WITH HYPERGLYCE 07/06/2016 CAMERON HO MD Ot I10 ESSENTIAL (PRIMARY) HYPERTENSION 07/06/2016 CAMERON HO MD Ot R31.29 OTHER MICROSCOPIC HEMATURIA 07/13/2016 BEA COLEMAN PAINT SPRAY INSPECTOR Ot G47.10 HYPERSOMNIA, UNSPECIFIED 07/13/2016 BEA COLEMAN PAINT SPRAY INSPECTOR Ot G47.9 SLEEP DISORDER, UNSPECIFIED 07/14/2016 BEA COLEMAN PAINT SPRAY INSPECTOR Ot G47.10 HYPERSOMNIA, UNSPECIFIED 07/14/2016 BEA COLEMAN PAINT SPRAY INSPECTOR Ot G47.50 PARASOMNIA, UNSPECIFIED 07/14/2016 BEA COLEMAN PAINT SPRAY INSPECTOR Ot I48.0 PAROXYSMAL ATRIAL FIBRILLATION 07/16/2016 BEA COLEMAN PAINT SPRAY INSPECTOR Ot J18.9 PNEUMONIA, UNSPECIFIED ORGANISM 07/16/2016 BEA COLEMAN PAINT SPRAY INSPECTOR Ot R06.02 SHORTNESS OF BREATH 07/20/2016 BEA COLEMAN PAINT SPRAY INSPECTOR Ot J18.9 PNEUMONIA, UNSPECIFIED ORGANISM 07/20/2016 BEA COLEMAN PAINT SPRAY INSPECTOR Ot R06.02 SHORTNESS OF BREATH 09/08/2016 SONIA ALVAREZ PAINT SPRAY INSPECTOR Ot J20.8 ACUTE BRONCHITIS DUE TO OTHER SPECIFIED 09/15/2016 CAMERON HO MD Ot E10.65 TYPE 1 DIABETES MELLITUS WITH HYPERGLYCE 09/15/2016 CAMERON HO MD Ot R31.29 OTHER MICROSCOPIC HEMATURIA 09/29/2016 SONIA ALVAREZ PAINT SPRAY INSPECTOR Ot J20.8 ACUTE BRONCHITIS DUE TO OTHER SPECIFIED 10/06/2016 CAMERON HO MD, Ot E10.65 TYPE 1 DIABETES MELLITUS WITH HYPERGLYCE 10/06/2016 CAMERON HO MD Ot R31.29 OTHER MICROSCOPIC HEMATURIA 12/15/2016 CAMERON HO MD Ot E03.9 HYPOTHYROIDISM, UNSPECIFIED 12/15/2016 CAMERON HO MD Ot E10.65 TYPE 1 DIABETES MELLITUS WITH HYPERGLYCE 12/15/2016 CAMREON HO MD Ot E66.9 OBESITY, UNSPECIFIED 12/15/2016 [...] 04/18/2017 CAMERON HO MD Ot Z79.899 OTHER SENIOR LIVING (CURRENT) DRUG THERAPY 05/25/2017 GUY CURRY SHELL R Ot M23.8X2 OTHER INTERNAL DERANGEMENTS OF LEFT KNEE 05/25/2017 GUY CURRY SHELL R Ot M25.462 EFFUSION, LEFT KNEE 05/25/2017 GUY CURRY SHELL R Ot 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] 06/03/2017 SONIA ALVAREZ PAINT SPRAY INSPECTOR Ot M17.12 UNILATERAL PRIMARY OSTEOARTHRITIS, LEFT 06/08/2017 SONIA ALVAREZ PAINT SPRAY INSPECTOR Ot M17.12 UNILATERAL PRIMARY OSTEOARTHRITIS, LEFT 06/14/2017 [...] G47.33 OBSTRUCTIVE SLEEP APNEA (ADULT) (PEDIATR 08/03/2017 ROSALINA VALDES MD Ot I10 ESSENTIAL (PRIMARY) [...] 08/03/2017 ROSALINA VALDES MD, Ot Z79.899 OTHER SENIOR LIVING (CURRENT) DRUG THERAPY 08/03/2017 ROSALINA VALDES MD [...] 08/04/2017 ROSALINA VALDES MD Ot Z79.899 OTHER SENIOR LIVING (CURRENT) DRUG THERAPY 08/04/2017 ROSALINA VALDES MD [...] 08/09/2017 ROSALINA VALDES MD Ot Z79.899 OTHER TRANSPORTATION PROGRAM DIRECTOR (CURRENT) DRUG THERAPY 08/09/2017 ROSALINA VALDES MD [...] Ot J45.909 UNSPECIFIED ASTHMA, UNCOMPLICATED 08/19/2017 ROSALINA VALDES MD, Ot K21.9 GASTRO-ESOPHAGEAL REFLUX DISEASE WITHOUT 08/19/2017 ROSALINA VALDES MD Ot M23.8X1 OTHER INTERNAL DERANGEMENTS OF RIGHT KNE 08/19/2017 ROSALINA VALDES MD Ot M94.261 CHONDROMALACIA, RIGHT KNEE 08/19/2017 ROSALINA VALDES MD, Ot Z79.899 OTHER SENIOR LIVING (CURRENT) DRUG THERAPY 08/19/2017 ROSALINA VALDES MD, Ot Z88.8 ALLERGY STATUS TO [facility] DRUG/MEDS/BIOL SUB 09/22/2017 CAMERON HO MD Ot 599.72 MICROSCOPIC HEMATURIA 09/22/2017 KARTIK BRANDT PAINT SPRAY INSPECTOR Ot V04.5 VACCIN FOR RABIES 09/22/2017 ROSALINA VALDES MD Ot M17.11 UNILATERAL PRIMARY OSTEOARTHRITIS, RIGHT 09/22/2017 ROSALINA VALDES MD Ot M23.8X2 OTHER INTERNAL DERANGEMENTS OF LEFT KNEE 09/22/2017 ROSALINA VALDES MD, Ot Z01.818 ENCOUNTER FOR OTHER PREPROCEDURAL EXAMIN 09/29/2017 SHIN SANTIAGO MD Ot E03.9 HYPOTHYROIDISM, UNSPECIFIED 09/29/2017 SHIN SANTIAGO MD Ot E11.9 TYPE 2 DIABETES MELLITUS WITHOUT COMPLIC 09/29/2017 SHIN SANTIAGO MD Ot E78.00 PURE HYPERCHOLESTEROLEMIA, UNSPECIFIED 09/29/2017 SHIN SANTIAGO MD Ot G47.30 SLEEP APNEA, UNSPECIFIED 09/29/2017 SHIN SANTIAGO MD Ot G89.29 OTHER CHRONIC PAIN 09/29/2017 SHIN SANTIAGO MD Ot I10 ESSENTIAL (PRIMARY) HYPERTENSION 09/29/2017 SHIN SANTIAGO MD Ot I48.91 UNSPECIFIED ATRIAL FIBRILLATION 09/29/2017 SHIN SANTIAGO MD Ot J45.909 UNSPECIFIED ASTHMA, UNCOMPLICATED 09/29/2017 SHIN SANTIAGO MD Ot K21.9 GASTRO-ESOPHAGEAL REFLUX DISEASE WITHOUT 09/29/2017 SHIN SANTIAGO MD Ot M17.11 UNILATERAL PRIMARY OSTEOARTHRITIS, RIGHT 09/29/2017 SIHN SANTIAGO MD Ot M25.569 PAIN IN UNSPECIFIED KNEE 09/29/2017 SHIN SANTIAGO MD Ot R10.9 UNSPECIFIED ABDOMINAL PAIN 09/29/2017 SHIN SANTIAGO MD Ot R11.10 VOMITING, UNSPECIFIED 09/29/2017 SHIN SANTIAGO MD, Ot R11.2 NAUSEA WITH VOMITING, UNSPECIFIED 09/29/2017 SHIN SANTIAGO MD, Ot R19.7 DIARRHEA, UNSPECIFIED 09/29/2017 SHIN SANTIAGO MD, Ot Z79.01 SENIOR LIVING (CURRENT) USE OF ANTICOAGULANT 09/29/2017 SHIN SANTIAGO MD, Ot Z80.42 FAMILY HISTORY OF MALIGNANT NEOPLASM OF 09/29/2017 SHIN SANTIAGO MD, Ot Z82.49 FAMILY HX OF ISCHEM HEART DIS AND OTH DI 09/29/2017 SHIN SANTIAGO MD, Ot Z88.8 ALLERGY STATUS TO OT DRUG/MEDS/BIOL SUB 09/29/2017 SHIN SANTIAGO MD, Ot Z90.710 ACQUIRED ABSENCE OF BOTH CERVIX AND UTER 09/29/2017 SHIN SANTIAGO MD, Ot E03.9 HYPOTHYROIDISM, UNSPECIFIED 09/29/2017 SHIN SANTIAGO MD Ot E11.9 TYPE 2 DIABETES MELLITUS WITHOUT COMPLIC 09/29/2017 SHIN SANTIAGO MD, Ot E78.00 PURE HYPERCHOLESTEROLEMIA, UNSPECIFIED 09/29/2017 SHIN SANTIAGO MD, Ot G47.30 SLEEP APNEA, UNSPECIFIED 09/29/2017 SHIN SANTIAGO MD Ot G89.29 OTHER CHRONIC PAIN 09/29/2017 SHIN SANTIAGO MD Ot I10 ESSENTIAL (PRIMARY) HYPERTENSION 09/29/2017 SHIN SANTIAGO MD Ot I48.91 UNSPECIFIED ATRIAL FIBRILLATION 09/29/2017 SHIN SANTIAGO MD, Ot J45.909 UNSPECIFIED ASTHMA, UNCOMPLICATED 09/29/2017 SHIN SANTIAGO MD Ot K21.9 GASTRO-ESOPHAGEAL REFLUX DISEASE WITHOUT 09/29/2017 SHIN SANTIAGO MD Ot M17.11 UNILATERAL PRIMARY OSTEOARTHRITIS, RIGHT 09/29/2017 SHIN SANTIAGO MD, Ot M25.569 PAIN IN UNSPECIFIED KNEE 09/29/2017 SHIN SANTIAGO MD Ot R10.9 UNSPECIFIED ABDOMINAL PAIN 09/29/2017 SHIN SANTIAGO MD, Ot R11.10 VOMITING, UNSPECIFIED 09/29/2017 SHIN SANTIAGO MD, Ot R11.2 NAUSEA WITH VOMITING, UNSPECIFIED 09/29/2017 SHIN SANTIAGO MD, Ot R19.7 DIARRHEA, UNSPECIFIED 09/29/2017 SHIN SANTIAGO MD, Ot Z79.01 SENIOR LIVING (CURRENT) USE OF ANTICOAGULANT 09/29/2017 SHIN SANTIAGO MD, Ot Z80.42 FAMILY HISTORY OF MALIGNANT NEOPLASM OF 09/29/2017 SHIN SANTIAGO MD, Ot Z82.49 FAMILY HX OF ISCHEM HEART DIS AND OTH DI 09/29/2017 SHIN SANTIAGO MD, Ot Z88.8 ALLERGY STATUS TO OT DRUG/MEDS/BIOL SUB 09/29/2017 SHIN SANTIAGO MD, Ot Z90.710 ACQUIRED ABSENCE OF BOTH CERVIX AND UTER 10/04/2017 LUCIO CURRY, ROSALINA Santacruz Ot M17.11 UNILATERAL PRIMARY OSTEOARTHRITIS, RIGHT Procedures There is no data. Results Test [...] Automated blood platelet mean volume measurement 10.[address] [[address] [facility]] 7.4-10.4 Automated blood neutrophils/100 leukocytes 90 % [...] in urine sediment by light microscopy 5-10 [facility] Comprehensive metabolic panel - 05/16/16 22:00 Serum [...] NRG Manual blood lymphocytes/100 leukocytes 4 % NR Blood erythrocyte morphology finding identification NORMAL NRG [...] Staphylococcus aureus (MRSA) screening culture NEG NRG Complete blood count (CBC) with automated white blood cell (WBC) differential - 09/27/17 09:47 Blood leukocytes automated count (number/volume) 12.5 10*3/uL 4.3-11.0 Blood erythrocytes automated count (number/volume) 4.02 10*6/uL 4.35-5.85 Venous blood hemoglobin measurement (mass/volume) 11.6 g/dL 11.5-16.0 Blood hematocrit (volume fraction) 35 % 35-52 Automated erythrocyte mean corpuscular volume 88 [foz_us] 80-99 Automated erythrocyte mean corpuscular hemoglobin (mass per erythrocyte) 29 pg 25-34 Automated erythrocyte mean corpuscular hemoglobin concentration measurement ( mass/volume) 33 g/dL 32-36 Automated erythrocyte distribution width ratio 14.6 % 10.0-14.5 Automated blood platelet count (count/volume) 459 10*3/uL 130-400 Automated blood platelet mean volume measurement 10.1 [foz_us] 7.4-10.4 Automated blood neutrophils/100 leukocytes 88 % 42-75 Automated blood lymphocytes/100 leukocytes 7 % 12-44 Blood monocytes/100 leukocytes 6 % 0-12 Automated blood eosinophils/100 leukocytes 0 % 0-10 Automated blood basophils/100 leukocytes 0 % 0-10 Blood neutrophils automated count (number/volume) 11.0 10*3 1.8-7.8 Blood lymphocytes automated count (number/volume) 0.8 10*3 1.0-4.0 Blood monocytes automated count (number/volume) 0.7 10*3 0.0-1.0 Automated eosinophil count 0.0 10*3/uL 0.0-0.3 Automated blood basophil count (count/volume) 0.0 10*3/uL 0.0-0.1 Blood manual differential performed detection - 09/27/17 09:47 Blood monocytes/100 leukocytes 4 % NRG Manual blood segmented neutrophils/100 leukocytes 87 % NRG Blood band neutrophils/100 leukocytes 0 % NRG Manual blood lymphocytes/100 leukocytes 9 % NRG Manual eosinophils/100 leukocytes in nose 0 % NRG Manual blood basophils/100 leukocytes 0 % NRG Blood erythrocyte morphology finding identification NORMAL NR Comprehensive metabolic panel - 09/27/17 09:47 Serum or plasma sodium measurement (moles/volume) 139 mmol/L 135-145 Serum or plasma potassium measurement (moles/volume) 4.5 mmol/L 3.6-5.0 Serum or plasma chloride measurement (moles/volume) 103 mmol/L 98-107 Carbon dioxide 20 mmol/L 21-32 Serum or plasma anion gap determination (moles/volume) 16 mmol/L 5-14 Serum or plasma urea nitrogen measurement (mass/volume) 18 mg/dL 7-18 Serum or plasma creatinine measurement (mass/volume) 0.85 mg/dL 0.60-1.30 Serum or plasma urea nitrogen/creatinine mass ratio 21 NRG Serum or plasma creatinine measurement with calculation of estimated glomerular filtration rate > NRG Serum or plasma glucose measurement (mass/volume) 272 mg/dL 70-105 Serum or plasma calcium measurement (mass/volume) 10.2 mg/dL 8.5-10.1 Serum or plasma total bilirubin measurement (mass/volume) 0.6 mg/dL 0.1-1.0 Serum or plasma alkaline phosphatase measurement (enzymatic activity/volume) 96 U/L 40-136 Serum or plasma aspartate aminotransferase measurement (enzymatic activity/ volume) 16 U/L 5-34 Serum or plasma alanine aminotransferase measurement (enzymatic activity/volume ) 13 U/L 0-55 Serum or plasma protein measurement (mass/volume) 7.8 g/dL 6.4-8.2 Serum or plasma albumin measurement (mass/volume) 4.0 g/dL 3.2-4.5 Magnesium - 09/27/17 09:47 Magnesium 1.8 mg/dL 1.8-2.4 THYROID STIMULATING HORMONE - 09/27/17 09:47 THYROID STIMULATING HORMONE 0.44 u[iU]/mL 0.35-4.94 Serum or plasma thyroxine (T4) free measurement (mass/volume) - 09/27/17 09:47 Serum or plasma thyroxine (T4) free measurement (mass/volume) 1.23 ng/dL 0.70-1.48 Capillary blood glucose measurement by glucometer (mass/volume) - 09/27/17 10: 09 Capillary blood glucose measurement by glucometer (mass/volume) 237 mg/dL 70-110 Capillary blood glucose measurement by glucometer (mass/volume) - 09/27/17 13: 30 Capillary blood glucose measurement by glucometer (mass/volume) 224 mg/dL 70-110 Complete urinalysis with reflex to culture - 09/27/17 14:00 Urine color determination YELLOW NRG Urine clarity determination CLEAR NRG Urine pH measurement by test strip 5 5-9 Specific gravity of urine by test strip 1.025 1.016- 1.022 Urine protein assay by test strip, semi-quantitative 2+ NEGATIVE Urine glucose detection by automated test strip 3+ NEGATIVE Erythrocytes detection in urine sediment by light microscopy 2+ NEGATIVE Urine ketones detection by automated test strip 4+ NEGATIVE Urine nitrite detection by test strip NEGATIVE NEGATIVE Urine total bilirubin detection by test strip 1+ NEGATIVE Urine urobilinogen measurement by automated test strip (mass/volume) 1 mg/dL NORMAL Urine leukocyte esterase detection by dipstick [...] detection in urine sediment by light microscopy SMALL NRG Complete urinalysis with reflex to culture NO NRG Hyaline casts detection in urine sediment by light microscopy 2-5 NRG Encounters ACCT No. Visit Date/Time Discharge Status Pt. Type Provider Facility Loc./Unit Complaint [id number] 09/28/2017 08:00:00 09/28/2017 23:59:59 CLS Preadmit LUCIO CURRY, ROSALINA Santacruz [facility] SDC LEFT KNEE TORN MEDIAL AND LATERAL MENISCUS [id number] 09/27/2017 09:01:00 09/27/2017 15:17:00 DIS Outpatient JACK CURRY, SHIN Wren [facility] ER VOMITING/DIARRHEA [id number] 09/22/2017 10:45:00 09/22/2017 23:59:59 CLS Outpatient ROSALINA VALDES MD [facility] REHAB S/P R KNEE SCOPE; OA R KNEE [id number] 09/22/2017 11:25:00 09/22/2017 12:41:00 DIS Outpatient ROSALINA VALDES MD [facility] PREOP LEFT KNEE TORN MEDIAL/LATERAL MENISCUS [id number] 08/03/2017 06:30:00 08/03/2017 11:52:00 DIS Outpatient ROSALINA VALDES MD [facility] RIGHT KNEE OSTEOARTHRITIS [id number] 08/01/2017 13:19:00 08/01/2017 14:23:00 DIS Outpatient ROSALINA VALDES MD [facility] PREOP RIGHT KNEE OSTEOARTHRITIS [id number] 06/20/2017 14:51:00 06/20/2017 23:59:59 CLS Outpatient CAMERON HO MD [facility] LAB E10.65 [id number] 05/24/2017 10:49:00 05/24/2017 23:59:59 CLS Outpatient GUY CURRY, SHELL Walsh [facility] RAD CHRONIC PAIN OF LEFT KNEE [id number] 05/13/2017 14:51:00 05/13/2017 23:59:59 CLS Outpatient SONIA ALVAREZ PAINT SPRAY INSPECTOR [facility] RAD M25.562 [id number] 03/24/2017 11:32:00 03/24/2017 23:59:59 CLS Outpatient CAMERON HO MD [facility] LAB E66.9, E03.9, E78.5, E87.5, I10, R31.29 [id number] 12/15/2016 08:22:00 12/15/2016 23:59:59 CLS Outpatient CAMERON HO MD [facility] LAB E10.65 E669.9 E78.5 I10 [id number] 09/14/2016 11:26:00 09/14/2016 23:59:59 CLS Outpatient CAMERON HO MD [facility] LAB E10.65 [id number] 09/06/2016 14:24:00 09/06/2016 23:59:59 CLS Outpatient KIM SONIA Nico RENDON [facility] RAD J20.8 [id number] 07/13/2016 21:00:00 07/14/2016 06:30:00 DIS Outpatient BEA COLEMAN APRN [facility] SLEEP HYPERSOMNIA, PARASOMNIA,PAROXYSMAL AFIB,SLEEP DISOR [id number] 06/23/2016 12:55:00 06/23/2016 23:59:59 CLS Outpatient BEA COLEMAN APRN [facility] RT SOB ON EXERTION, PNEUMONIA [id number] 06/08/2016 11:06:00 06/08/2016 23:59:59 CLS Outpatient CAMERON HO MD [facility] LAB E10.65 [id number] 05/17/2016 01:08:00 05/18/2016 12:50:00 DIS Inpatient HEATHER HOOKS DO [facility] ICU W V D; PNEUMONIA;DKA [id number] 04/03/2016 04:25:00 04/04/2016 13:13:00 DIS Inpatient GUY CURRY, SHELL R [facility] 4TH INTRACTABLE N/V, HYPERGLYCEMIA [id number] 02/25/2016 10:48:00 02/25/2016 23:59:59 CLS Outpatient CAMERON HO MD [facility] LAB TYPE 1 DIABETES MELLITUS UNCONTROLLED [id number] 02/24/2016 11:17:00 02/24/2016 11:17:00 CAN Preadmit CAMERON HO MD [facility] LAB DM, SENIOR LIVING DRUG THERAPY, OBESITY, HLP, HTN [id number] 11/20/2015 08:28:00 11/20/2015 23:59:59 CLS Outpatient CAMERON HO MD [facility] LAB TYPE 1 DIABETES, HYPERLIPIDEMIA,HYPERKALEMIA, HTN, [id number] 08/12/2015 10:40:00 08/12/2015 23:59:59 CLS Outpatient CAMERON HO MD [facility] LAB DM TYPE I WITH HYPERGLYCEMIA [id number] 05/05/2015 08:02:00 05/05/2015 23:59:59 CLS Outpatient CAMERON HO MD [facility] LAB HYPOTHYROIDSIM,DM, HYPERLIPIDEMIA [id number] 01/23/2015 11:43:00 01/23/2015 23:59:59 CLS Outpatient CAMERON HO MD [facility] LAB DM TYPE 1,HEMATURIA [id number] 10/08/2014 08:27:00 10/08/2014 23:59:59 CLS Outpatient CAMERON HO MD [facility] LAB [id number] 04/24/2014 10:01:00 04/24/2014 23:59:59 CLS Outpatient AURORA DENNEY [facility] CARD [id number] 04/18/2014 12:34:00 04/18/2014 17:47:00 DIS Emergency AURORA DENNEY [facility] ER [id number] 04/14/2014 00:12:00 04/14/2014 23:59:59 CLS Preadmit KARTIK BRANDT APRN [facility] SURG RCR BIT BY BAT [id number] 01/24/2014 09:49:00 04/13/2014 00:01:00 DIS Outpatient KARTIK BRANDT PAINT SPRAY INSPECTOR [facility] SURG RCR [id number] 04/09/2014 00:11:00 04/09/2014 23:59:59 CLS Preadmit CAMERON HO MD [facility] LAB MICROSCOPIC HEMATURIA [id number] 01/08/2014 13:38:00 04/08/2014 00:01:00 DIS Outpatient CAMERON HO MD [facility] LAB [id number] 03/28/2014 08:18:00 03/28/2014 23:59:59 CLS Outpatient CAMERON HO MD [facility] LAB [id number] 01/24/2014 09:19:00 01/24/2014 23:59:59 CLS Outpatient ABIGAIL CURRY, JAYNE Platt [facility] RAD [id number] 01/24/2014 09:15:00 01/24/2014 23:59:59 CLS Outpatient VIC CURRY, CAMERON [facility] RAD [id number] 01/10/2014 17:12:00 01/10/2014 18:05:00 DIS Emergency [id number] 12/19/2013 11:32:00 12/19/2013 23:59:59 CLS Outpatient [id number] 09/20/2013 10:34:00 09/20/2013 23:59:59 CLS Outpatient [id number] 06/14/2013 09:29:00 06/14/2013 23:59:59 CLS Outpatient [id number] 03/08/2013 08:02:00 03/08/2013 23:59:59 CLS Outpatient [id number] 11/30/2012 10:31:00 11/30/2012 23:59:59 CLS Outpatient [id number] 07/04/2014 10:27:00 Document Registration [id number] 10/14/2011 15:45:00 Document Registration [id number] 05/31/2013 14:17:00 05/31/2013 23:59:59 CLS Outpatient [id number] 01/23/2015 11:44:14 ACT Document Registration
[2017-10-12 06:15] VITALS: BP 181/68
[2017-10-12] MEDS ORDERED: ceFAZolin INJECTION 1,000 MG in NS (IVPB) 50 ML IV ONE (06:15)
[2017-10-12] MEDS ORDERED: SEVOFLURANE (ULTANE) 15 ML INHAL SOLN ONE ×2 (06:34→07:04)
[2017-10-12] MEDS ORDERED: fentaNYL INJECTION 100 MCG/2 ML AMP ONE ×3 (06:34→08:23)
[2017-10-12] MEDS ORDERED: LIDOCAINE PF 2% 5 ML (XYLOCAINE) VIAL ONE (06:34)
[2017-10-12] MEDS ORDERED: proPOfol 200 MG/20 ML (DIPRIVAN) VIAL IV ONE (06:34)
[2017-10-12] MEDS ORDERED: MIDAZOLAM 2 MG/2 ML (VERSED) VIAL ONE (06:34)
[2017-10-12] MEDS ORDERED: ONDANSETRON 4 MG/2 ML (SDV) Z0FRAN ONE ×2 (06:34→06:35)
[2017-10-12] MEDS ORDERED: FAMOTIDINE 20MG/2ML IV (PEPCID) ONE (06:35)
[2017-10-12] MEDS ORDERED: SCOPOLAMINE 1.5 MG (TRANSDERM-SCOP) PATCH ONE (06:35)
[2017-10-12] MEDS ORDERED: ceFAZolin 1,000 MG (ANCEF) VIAL ONE (06:35)
[2017-10-12] MEDS ORDERED: NS (IVPB) 50 ML ONE (06:35)
[2017-10-12] MEDS ORDERED: ONDANSETRON 4 MG/2 ML (SDV) Z0FRAN IV ONE (06:45)
[2017-10-12] MEDS ORDERED: FAMOTIDINE 20MG/2ML IV (PEPCID) IV ONE (06:45)
[2017-10-12] MEDS ORDERED: SCOPOLAMINE 1.5 MG (TRANSDERM-SCOP) PATCH TOP ONE (06:45)
[2017-10-12] MEDS: LACTATED RINGERS 1,000 ML IV PRN ×2 (06:45→08:09)
--- NOTE | 2017-10-12 07:12 | Progress Note-Pre Operative ---
Pre-Operative Progress Note H&P Reviewed The H&P was reviewed, patient examined and no changes noted. Date Seen by Provider: October 12, 2017 Time Seen by Provider: 07:11 Date H&P Reviewed: October 12, 2017 Time H&P Reviewed: 07:11 Pre-Operative Diagnosis: left knee medail and lateral meniscus tears and chondromalacia ROSALINA VALDES MD October 12, 2017 07:12
--- NOTE | 2017-10-12 07:13 | Progress Note-Post Operative ---
Post-Operative Progess Note Surgeon (s)/Multicultural Services Librarian (s) Surgeon ROSALINA VALDES MD Multicultural Services Librarian: Dillon Darnell Pre-Operative Diagnosis left knee medail and lateral meniscus tears and chondromalacia Post-Operative Diagnosis left knee medial and lateral meniscus tears and chondromalacia of the lateral femoral condyle Procedure & Operative Findings Date of Procedure 10/12/17 Procedure Performed/Findings left knee arthroscopic partial medial and lateral meniscectomies and chondroplasty of the lateral femoral condyle Anesthesia Type GETA Estimated Blood Loss Estimated blood loss (mL): minimal Specimens/Packing Specimens Removed none Packing: none ROSALINA VALDES MD October 12, 2017 07:13
[2017-10-12] MEDS ORDERED: morphine PF (DURAMORPH) 10 MG/10 ML AMP ONE (07:18)
[2017-10-12] MEDS ORDERED: BUPIVACAINE 0.25% 30 ML (SENSORCAINE) VIAL ONE (07:18)
[2017-10-12] MEDS ORDERED: HYDROcodone/APAP 7.5 MG/325 MG (LORTAB, LORCET PLUS) TABLET PO PRN (07:30)
[2017-10-12] MEDS: fentaNYL INJECTION 100 MCG/2 ML AMP IVP PRN ×4 (08:30→08:45)
[2017-10-12] MEDS ORDERED: HYDROmorphone 1 MG/ML (DILAUDID) 1 ML SYRINGE ONE (08:51)
[2017-10-12] MEDS: HYDROmorphone 1 MG/ML (DILAUDID) 1 ML SYRINGE IV PRN ×2 (08:55→09:05)
[2017-10-12 09:35] VITALS: BP 185/67
[2017-10-12 09:36] VITALS: BP 185/67
--- NOTE | 2017-10-12 09:49 | Anesthesia-General Post-Op ---
General Patient Condition Mental Status/LOC: Same as Preop Cardiovascular: Satisfactory Nausea/Vomiting: Absent Respiratory: Satisfactory Pain: Controlled Complications: Absent Post Op Complications Complications None Follow Up Care/Instructions Patient Instructions None needed. Anesthesia/Patient Condition Patient Condition Patient is doing well, no complaints, stable vital signs, no apparent adverse anesthesia problems. No complications reported per nursing. D/C home per [facility] Criteria: Yes DOLORES DOBBS CRNA October 12, 2017 09:49
[2017-10-12] MEDS ORDERED: HYDR-3816 PO (10:01)
[2017-10-12 10:05] VITALS: BP 170/69
[2017-10-12 10:35] VITALS: BP 135/99
--- NOTE | 2017-10-12 15:30 | Physical Therapy Ortho Eval ---
PT Orthopedic Evaluation Type of Surgery Knee Scope (left knee) Prior Level of Function Current Living Status: Spouse Locomotion (Upon Admit): Independent Established Durable Medical Eq: Front Wheeled Walker Subjective Subjective Pt reports she has had general weakness for the last several months. Reports she had her other knee scoped a few months ago. Reports she plans to start outpt therapy tomorrow. Spouse present and agreeable to to help as needed. Entry Into Home: Stairs With Railing Steps Into Home: 2 Motor Control Motor Control: Motor Control WNL ROM ROM: WFL Strength Strength: WFL (grossly 4-/5 throughout B LE) Transfer Transfers (B, C, W/C) (FIM): 5 (6 post treatment) Gait Gait Assistive Device: FWW Right Lower Extremity: Right Weight Bearing Status RLE: Full Weight Bearing Left Lower Extremity: Left Weight Bearing Status LLE: Weight Bearing/Tolerated Gait (FIM): 5 (6 post treatment) Treatment Rendered Treatment: Therapeutic Exercises, Gait Train Exercise Instruction: Quad Sets, Straight Leg Raise, Heel Slides Pt familiar with ther ex from previous surgery. Assessment/Goals Goal Time Frame: 1 Visit Understands HEP: Yes Safe Ambulation: Yes Pt is mod indep with gait post visit. Plan Treatment Plan: Discharge PT/Family Agrees to Plan: Yes Time Time In: 1015 Time Out: 1035 Total Billed Treatment Time: 20 Billed Treatment Time visit EVL 20 PT/OT Therapy GCodes Therapy Functional Limitation: Physical Therapy Test(s)/Tool used to determine: Level of Assistance Scale Functional Limitation-Current Charge Code: MOBCUR Modifier: CJ Functional Limitation-Goal Charge Code: MOBGOAL Modifier: CI Functional Limitation-D/C Charge Codes: MOBDC Modifier: CI DEVEN HERNANDEZ PT October 12, 2017 15:30
--- NOTE | 2017-10-12 16:12 | OPERATIVE REPORT ---
DATE OF SERVICE: 10/12/2017 PREOPERATIVE DIAGNOSES: 1. Left knee medial meniscal tear. 2. Left knee lateral meniscal tear. 3. Left knee chondromalacia patella. POSTOPERATIVE DIAGNOSES: 1. Left knee medial meniscal tear. 2. Left knee lateral meniscal tear. 3. Left knee chondromalacia of lateral femoral condyle. PROCEDURES: 1. Left knee arthroscopic partial medial meniscectomy. 2. Left knee arthroscopic partial lateral meniscectomy. 3. Left knee arthroscopic chondroplasty of lateral femoral condyle. SURGEON: Levar Valdes MD. GRADER MEAT: Dillon Darnell, who assisted throughout the procedure and closed the incisions. ANESTHESIA: General endotracheal by Dr. Correa. TOURNIQUET TIME: Not applicable. ESTIMATED BLOOD LOSS: Minimal. DRAINS: None. COMPLICATIONS: None. POSTOPERATIVE PLAN: Routine arthroscopy protocol. The patient was transferred to recovery room, awake and stable condition. STATEMENT OF MEDICAL NECESSITY: The patient is a 67-year-old female with complaints of left knee pain, catching, locking and swelling. She underwent an MRI, which revealed medial and lateral meniscal tears. She reported swelling and activity limitations. Because of the knee and due to failure to improve with conservative measures, the patient elected to proceed with surgical intervention. Examination under anesthesia revealed valgus alignment with range of motion of 0/4/125 with a negative Prashant, negative anterior and posterior drawer. No varus or valgus laxity, negative pivot shift. Arthroscopic findings, the patella demonstrated diffuse grade IV chondral loss centrally in a 15 x 15 area. The trochlea demonstrated grade IV chondral loss in central portion of the groove in a 10 x 15 area. The medial and lateral gutters were clear. The lateral compartment demonstrated grade III chondral flaps over the anterior central weightbearing portion of the femoral condyle in a 10 x 15 area. There was a degenerative tear of the posterior horn and body of the meniscus involving approximately 1/3 of the posterior horn and body. The ACL and PCL were intact. The medial compartment demonstrated no gross chondral abnormalities with a tear of the posterior horn, horizontal cleavage in nature involving approximately 1/3 of the posterior horn. DESCRIPTION OF PROCEDURE: After risks and benefits of procedure were discussed and questions were answered, an informed consent was signed and placed on chart. The operative site was confirmed in the preoperative holding area initialed by the surgeon. The patient was then transported to the operating room and after adequate levels of general endotracheal anesthetic were obtained, a timeout was called confirming the operative site. Examination under anesthesia was performed with the above findings noted. The left lower extremity was prepped and draped in the usual sterile fashion. The knee joint was injected with 60 mL of fluid and standard inferolateral portals were placed with the arthroscope under direct visualization, inferior medial portal was created. The menisci and cruciates were carefully probed with the above findings noted. The unstable chondral flaps on the lateral femoral condyle were debrided with shaver back to a stable edge. The posterior horn and body of the lateral meniscus were debrided with the biter and a shaver removing approximately 1/3 of the posterior horn and body. The scope was then redirected into the medial compartment and the unstable medial meniscal tear was debrided with the biter and shaver removing approximately 1/3 of the posterior horn. This was carefully probed. No further tearing or instability noted. Knee was copiously irrigated. Port sites closed with 4-0 nylon in simple fashion and injected with Duramorph. Port sites were infiltrated with plain Marcaine. A soft dressing was applied and the patient transferred to recovery room awake and stable condition. Job ID: [id number] DocumentID: [id number] Dictated Date: 10/12/2017 08:25:37 Safety Aide Date: 10/12/2017 16:12:30 Dictated By: LEVAR VALDES MD
== END 2017-10-12 10:50 | disposition home or self-care (01) ==
LOC: SDC 06:05
PROVIDERS: ATTEND Orthopaedic Surgery
DX: M23.8X2 Other internal derangements of left knee (principal); M94.262 Chondromalacia, left knee; I48.91 Unspecified atrial fibrillation; J45.909 Unspecified asthma, uncomplicated; E11.9 Type 2 diabetes mellitus without complications; I10 Essential (primary) hypertension; E78.5 Hyperlipidemia, unspecified; E03.9 Hypothyroidism, unspecified; K21.9 Gastro-esophageal reflux disease without esophagitis; Z79.899 Other long term (current) drug therapy; Z79.4 Long term (current) use of insulin
CPT/HCPCS: 82962

== ENCOUNTER 2017-11-15 15:45 | Outpatient (RCR) | payer MEDICARE, OTHER ==
[~2017-11-15 15:45] MED LIST changes: +HYDR-3816 PO
== END 2017-11-16 | disposition home or self-care (01) ==
PROVIDERS: ATTEND Orthopaedic Surgery
DX: M17.11 Unilateral primary osteoarthritis, right knee (principal)

== ENCOUNTER 2018-01-11 13:06 | Outpatient (RCR) | payer MEDICARE, OTHER ==
[~2018-01-11 13:06] MED LIST changes: -FLAX1000 PO; +FLAX10004 PO
== END 2018-01-11 13:36 | disposition home or self-care (01) ==
PROVIDERS: ATTEND Orthopaedic Surgery
DX: M17.11 Unilateral primary osteoarthritis, right knee (principal)

== ENCOUNTER → 2018-01-17 | Outpatient (CLI) | payer MEDICARE, OTHER ==
[2018-01-17 09:12] LABS: ALANINE AMINOTRANSFERASE 14 U/L (0-55); ALBUMIN 4.1 GM/DL (3.2-4.5); ALKALINE PHOSPHATASE 98 U/L (40-136); BILIRUBIN,TOTAL 0.7 MG/DL (0.1-1.0); BUN/CREATININE RATIO 29; CALCIUM 10.2 MG/DL (8.5-10.1); CARBON DIOXIDE 22 MMOL/L (21-32); CHLORIDE 103 MMOL/L (98-107); CHOLESTEROL 153 MG/DL (< 200); CREATININE SERUM 0.69 MG/DL (0.60-1.30); GFR ESTIMATED > 60; GLUCOSE 199 MG/DL (70-105); HDL CHOLESTEROL 61 MG/DL (40-60); POTASSIUM 4.8 MMOL/L (3.6-5.0); SODIUM 137 MMOL/L (135-145); TOTAL PROTEIN 7.6 GM/DL (6.4-8.2); TRIGLYCERIDES 90 MG/DL (<150); VLDL CHOLESTEROL 18 MG/DL (5-40)
== END ==
LOC: LAB 08:26
PROVIDERS: ATTEND Physician Assistant Medical
DX: E10.65 Type 1 diabetes mellitus with hyperglycemia (principal)
CPT/HCPCS: 36415; 80053; 80061; 82043; 83036; 84443

== ENCOUNTER → 2018-02-14 | Outpatient (CLI) | payer MEDICARE, OTHER ==
--- NOTE | 2018-02-14 12:38 | Diagnostic Imaging Report ---
PROCEDURE: MRI lumbar spine. TECHNIQUE: Multiplanar, multisequence MRI of the lumbar spine was performed without contrast. INDICATION: Bilateral leg pain. There are no prior studies available for comparison. FINDINGS: The T2 sagittal images show the vertebral body heights and alignment to be within normal limits. There is desiccation of the disc at every level with the disc spaces fairly well maintained. The thecal sac is generous. There is no evidence for central stenosis at any level. There is mild neuroforaminal narrowing bilaterally at L4-L5. There is no abnormal signal arising from the cord or the vertebral bodies to indicate an acute abnormality. There is no sign of a paraspinal mass. IMPRESSION: 1. There is moderate degenerative disc disease throughout the lumbar spine but there is no evidence for spinal stenosis or nerve root encroachment at any level. 2. There is no sign of an acute bony abnormality or of a cord lesion. Dictated by: Dictated on workstation # [id number]
== END ==
LOC: RAD 10:52
PROVIDERS: ATTEND Orthopaedic Surgery
DX: M51.16 Intervertebral disc disorders with radiculopathy, lumbar region (principal)
CPT/HCPCS: 72148

== ENCOUNTER → 2018-04-04 | Outpatient (CLI) | payer MEDICARE, OTHER | LOC: LAB 15:04 | PROVIDERS: ATTEND Physician Assistant Medical | DX: E10.65 Type 1 diabetes mellitus with hyperglycemia (principal) | CPT/HCPCS: 36415; 83036 ==

== ENCOUNTER → 2018-06-06 | Outpatient (CLI) | payer MEDICARE, OTHER ==
[~2018-06-06] VITALS: Ht 165.1 cm; Wt 95.3 kg
[~2018-06-06] MED LIST changes: +CATHETER FLUSH 10 ML SYR IV PRN; +REGADENOSON 0.4 MG/5 ML SYR (LEXISCAN) IV ONE
--- NOTE | 2018-06-08 10:36 | STRESS TEST ---
DATE OF SERVICE: 06/06/2018 RESTING AND POST REGADENOSON TECHNETIUM-99M TETROFOSMIN SPECT CT IMAGING CLINICAL DIAGNOSES: Diabetes, hyperlipidemia, paroxysmal atrial fibrillation, shortness of breath and hypertension. Baseline images were carried out after injection of 11 mCi of technetium-99m Tetrofosmin. This was followed by 0.4 mg Regadenoson and 30.5 mCi of technetium-99m Tetrofosmin for stress imaging. The electrocardiogram showed sinus rhythm at the baseline. The electrocardiogram did not change significantly with the Regadenoson infusion. The patient tolerated the procedure well. Review of images at rest and following stress does not indicate any significant perfusion defects consistent with significant myocardial ischemia or infarction. Gated images show normal global left ventricular systolic function with normal regional wall motion. Left ventricular ejection fraction is calculated to be 74%. Left ventricular end diastolic volume is 71 mL. TID is absent (1.03). CONCLUSIONS: 1. No evidence of any significant myocardial ischemia or infarction on this study. 2. Normal regional wall motion. 3. Normal global left ventricular systolic function with a calculated ejection fraction of 74%. Job ID: [id number] DocumentID: [id number] Dictated Date: 06/08/2018 09:56:49 Director Of Accounts Receivable Date: 06/08/2018 10:35:31 Dictated By: CHARLES LINN MD, MA, FACP, FACC,
== END ==
LOC: CARD 07:33
PROVIDERS: ATTEND Internal Medicine Cardiovascular Disease
DX: I77.89 Other specified disorders of arteries and arterioles (principal); E11.9 Type 2 diabetes mellitus without complications; E78.5 Hyperlipidemia, unspecified; G47.33 Obstructive sleep apnea (adult) (pediatric); I48.0 Paroxysmal atrial fibrillation; I10 Essential (primary) hypertension; R06.02 Shortness of breath
CPT/HCPCS: 78452; 93017

== ENCOUNTER → 2018-06-26 | Outpatient (CLI) | payer MEDICARE, OTHER ==
[~2018-06-26] MED LIST changes: -CATHETER FLUSH 10 ML SYR IV PRN; -REGADENOSON 0.4 MG/5 ML SYR (LEXISCAN) IV ONE
== END ==
LOC: CARD 12:51
PROVIDERS: ATTEND Internal Medicine Cardiovascular Disease
DX: I48.0 Paroxysmal atrial fibrillation (principal); I10 Essential (primary) hypertension; R06.02 Shortness of breath; E78.5 Hyperlipidemia, unspecified; E11.9 Type 2 diabetes mellitus without complications; I08.1 Rheumatic disorders of both mitral and tricuspid valves; G47.33 Obstructive sleep apnea (adult) (pediatric)
CPT/HCPCS: 93306

== ENCOUNTER → 2018-07-11 | Outpatient (CLI) | payer MEDICARE, OTHER ==
[2018-07-11 09:14] LABS: ALANINE AMINOTRANSFERASE 16 U/L (0-55); ALKALINE PHOSPHATASE 114 U/L (40-136); BILIRUBIN,TOTAL 0.6 MG/DL (0.1-1.0); BUN/CREATININE RATIO 23; CALCIUM 10.4 MG/DL (8.5-10.1); CARBON DIOXIDE 27 MMOL/L (21-32); CHLORIDE 104 MMOL/L (98-107); CHOLESTEROL 138 MG/DL (< 200); CREATININE SERUM 0.71 MG/DL (0.60-1.30); GFR ESTIMATED > 60; GLUCOSE 152 MG/DL (70-105); HDL CHOLESTEROL 58 MG/DL (40-60); POTASSIUM 4.8 MMOL/L (3.6-5.0); SODIUM 140 MMOL/L (135-145); TOTAL PROTEIN 7.8 GM/DL (6.4-8.2); TRIGLYCERIDES 67 MG/DL (<150); VLDL CHOLESTEROL 13 MG/DL (5-40)
== END ==
LOC: LAB 08:28
PROVIDERS: ATTEND Physician Assistant Medical
DX: E10.65 Type 1 diabetes mellitus with hyperglycemia (principal)
CPT/HCPCS: 36415; 80053; 80061; 82043; 83036; 84443

== ENCOUNTER → 2018-08-16 | Outpatient (CLI) | payer MEDICARE, OTHER ==
[~2018-08-16] VITALS: Ht 165.1 cm; Wt 102.6 kg
[~2018-08-16] MED LIST changes: +OMEP20CA12 PO
[2018-08-16 11:49] VITALS: BP 149/54
[2018-08-16 12:37] LABS: BASOPHILS % (AUTO) 0 % (0-10); EOSINOPHILS # (AUTO) 0.2 10^3/uL (0.0-0.3); EOSINOPHILS % (AUTO) 3 % (0-10); HEMATOCRIT 32 % (35-52); HEMOGLOBIN 10.2 G/DL (11.5-16.0); LYMPHOCYTES # (AUTO) 1.1 X 10^3 (1.0-4.0); LYMPHOCYTES % (AUTO) 18 % (12-44); MEAN CORPUSCULAR HEMOGLOBIN 28 PG (25-34); MEAN CORPUSCULAR HGB CONC 32 G/DL (32-36); MEAN CORPUSCULAR VOLUME 88 FL (80-99); MEAN PLATELET VOLUME 11.1 FL (7.4-10.4); MONOCYTES # (AUTO) 0.6 X 10^3 (0.0-1.0); MONOCYTES % (AUTO) 10 % (0-12); NEUTROPHILS # (AUTO) 4.5 X 10^3 (1.8-7.8); NEUTROPHILS % (AUTO) 70 % (42-75); PLATELET COUNT 285 10^3/uL (130-400); RED CELL DISTRIBUTION WIDTH 15.5 % (10.0-14.5); WHITE BLOOD COUNT 6.5 10^3/uL (4.3-11.0)
[2018-08-16 12:46] LABS: BILIRUBIN,URINE NEGATIVE (NEGATIVE); CLARITY,URINE CLEAR; COLOR,URINE YELLOW; GLUCOSE, URINE (UA) NEGATIVE (NEGATIVE); KETONES,URINE NEGATIVE (NEGATIVE); LEUKOCYTE ESTERASE ,URINE 1+ (NEGATIVE); NITRITE,URINE NEGATIVE (NEGATIVE); PH,URINE 7 (5-9); PROTEIN,URINE NEGATIVE (NEGATIVE); UROBILINOGEN,URINE NORMAL (NORMAL)
[2018-08-16 12:50] LABS: INR 1.3 (0.8-1.4); PROTHROMBIN TIME PATIENT 16.5 SEC (12.2-14.7)
[2018-08-16 12:57] LABS: ALANINE AMINOTRANSFERASE 13 U/L (0-55); ALBUMIN 3.7 GM/DL (3.2-4.5); ALKALINE PHOSPHATASE 116 U/L (40-136); BILIRUBIN,TOTAL 0.5 MG/DL (0.1-1.0); BUN/CREATININE RATIO 25; CALCIUM 9.4 MG/DL (8.5-10.1); CARBON DIOXIDE 28 MMOL/L (21-32); CHLORIDE 105 MMOL/L (98-107); CREATININE SERUM 0.65 MG/DL (0.60-1.30); GFR ESTIMATED > 60; GLUCOSE 91 MG/DL (70-105); POTASSIUM 4.4 MMOL/L (3.6-5.0); SODIUM 140 MMOL/L (135-145); TOTAL PROTEIN 7.3 GM/DL (6.4-8.2)
[2018-08-16 13:04] LABS: BACTERIA,URINE FEW /HPF; RBC,URINE 0-2 /HPF; WBC,URINE 0-2 /HPF
--- NOTE | 2018-08-16 13:06 | Diagnostic Imaging Report ---
INDICATION: Preop for right total knee arthroplasty. Time of exam 12:31 PM Comparison is made with prior exam from 09/06/2016. The heart size is normal. The pulmonary vascularity is unremarkable. The lungs are clear. No infiltrate, effusion or pneumothorax is detected. Impression: No acute cardiopulmonary process is detected. Dictated by: Dictated on workstation # [id number]
[2018-08-16 13:10] LABS: ERYTHROCYTE SEDIMENTATION RATE 78 MM/HR (0-30)
== END ==
LOC: PREOP 11:34
PROVIDERS: ATTEND Orthopaedic Surgery
DX: Z01.810 Encounter for preprocedural cardiovascular examination (principal); Z01.811 Encounter for preprocedural respiratory examination; Z01.812 Encounter for preprocedural laboratory examination; Z11.2 Encounter for screening for other bacterial diseases; M17.11 Unilateral primary osteoarthritis, right knee; R53.83 Other fatigue; R82.90 Unspecified abnormal findings in urine
CPT/HCPCS: 36415; 71046; 80053; 81000; 85025; 85610; 85652; 86850; 86900; 86901; 87081; 87088; 93005

== ENCOUNTER 2018-08-23 05:46 | Inpatient (IN) | payer MEDICARE, OTHER ==
--- NOTE | 2018-08-14 12:24 | HISTORY AND PHYSICAL ---
DATE OF SERVICE: 08/23/2018 DATE OF ADMISSION: 08/23/2018. CHIEF COMPLAINT: Right total knee arthroplasty. The patient will require regular inpatient admission due to weakness and gait abnormalities and pain management issues. HISTORY OF PRESENT ILLNESS: The patient is a 68-year-old female with longstanding progressive right knee pain. She has undergone treatment with arthroscopy as well as injections and physical therapy. She reports progressive symptoms and interference with activities of daily living and because of this, elected to proceed with surgical intervention. Radiographs reveals severe lateral joint space narrowing with moderate medial and patellofemoral joint space narrowing. REVIEW OF SYSTEMS: No chest pain, no shortness of breath. No dysuria. PAST MEDICAL HISTORY: Atrial fibrillation, asthma and diabetes mellitus. PAST SURGICAL HISTORY: Right breast cyst excision, hysterectomy, bilateral knee arthroscopies. FAMILY HISTORY: Significant for cancer, hypertension. PRIMARY CARE PROVIDER: Dr. Knott. MEDICATIONS: 1. Terbinafine. 2. Omeprazole. 3. Montelukast. 4. Cetirizine. 5. Humalog. 6. Ventolin. 7. 8. Clonidine. 9. Levothyroxine. 10. Lantus. 11. Pravastatin. 12. Flecainide. 13. Enalapril. 14. Doxazosin. 15. Diltiazem. 16. Pradaxa. 17. Tramadol. ALLERGIES: No known drug allergies. SOCIAL HISTORY: The patient denies alcohol, tobacco use. PHYSICAL EXAMINATION: GENERAL: The patient is well developed, well-nourished, in no acute distress. HEENT: Normocephalic, atraumatic. Pupils are equal, round, reactive to light. Oropharynx is clear. NECK: Supple, no lymphadenopathy. LUNGS: Clear. RESPIRATORY: Clear to auscultation bilaterally. HEART: Regular rate and rhythm. ABDOMEN: Soft, nontender, nondistended. EXTREMITIES: The right knee demonstrates range of motion. She has moderate effusion. There is no erythema or warmth. She has marked patellofemoral crepitus and pain with patellar loading. She is tender along the lateral joint line and has pain laterally with Deborah. She ambulates with a cane. IMPRESSION: Severe right knee osteoarthritis, unresponsive to conservative measures. PLAN: Right total knee arthroplasty. The risks, benefits, options, ramifications and recovery have been discussed at length with the patient. She understands and wishes to proceed. Job ID: [id number] DocumentID: [id number] Dictated Date: 08/14/2018 11:07:37 Nurse Practitioner Hospitalist Date: 08/14/2018 12:24:05 Dictated By: ROSALINA VALDES MD
--- NOTE | 2018-08-16 14:34 | NUR ---
PATIENT WAS INTERVIEWED AND MED REC UPDATED BY [facility] NURSE. I HAD A LIST FAXED OVER FROM [facility] TO VERIFY THE DOSES OF THE MEDICATIONS WERE ACCURATE. NO DISCREPANCIES FOUND SO I DID NOT RE-INTERVIEW THE PATIENT AT THIS TIME. LEFT OTC MEDS AND DIRECTIONS REPORTED BY [facility]. [facility] FILLED: 08-07-18 CLONIDINE 0.2MG BID 08-02-18 ELIQUIS 5MG BID 08-02-18 HUMALOG KWIK PEN 10 WITH MEALS PER SLIDING SCALE UP TO 60 UNITS DAILY 08-02-18 LEVOTHYROXINE 100MCG DAILY 08-02-18 MONTELUKAST 10MG EVERY EVENING (REPORTED AM BY [facility]) 07-26-18 PRAVASTATIN 40MG DAILY 07-07-18 ENALAPRIL 10MG DAILY 07-07-18 FLECAINIDE 150MG Q 12H 07-07-18 CARTIA XT 300MG DAILY 05-31-18 DOXAZOSIN 2MG BID 05-31-18 OMEPRAZOLE 20MG DAILY 04-08-18 LANTUS SOLOSTAR 27 HS (REPORTED IN [facility] 10 HS) OTC MEDS REPORTED: MTV DAILY LUTEIN DAILY FLAXSEED OIL DAILY ZYRTEC DAILY
[~2018-08-23] VITALS: Ht 165.1 cm; Wt 102.6 kg
--- OUTSIDE RECORDS SUMMARY | 2018-08-23 05:53 | XMS REPORT | Continuity of Care Document ---
Author Author Florecita Maynard Ambulatory Address Unknown Phone Unavailable Care Team Providers Care Material Control Supervisor Name Role Phone Colton Knott PP Unavailable Payers Payer name Insurance type Covered republican ID Authorization(s) Unknown Problems Condition Effective Dates (start - stop) Clinical Status Atrial Fibrillation - Episodic Hypertension, Unspecified - *Fair Control Diabetes Mellitus Type 2, Uncomplicated - *Chronic Atrial Fibrillation - Episodic Hypertension, Unspecified - *Chronic Diabetes mellitus - *Chronic Atrial Fibrillation - Episodic Hypertension, Unspecified - *Chronic Atrial Fibrillation - Episodic Hypertension, Unspecified - *Fair Control Atrial Fibrillation - *Acute Family History Family Member Diagnosis Age At Onset Status Father (Unknown) Cancer Yes Sister (Unknown) Hypertension Yes Sister (Unknown) Diabetes Yes Mother (Unknown) Hypertension Yes Father (Unknown) Hypertension Yes Mother (Unknown) Cancer Yes Father (Unknown) Asthma Yes Social History Social History Element Description Quantity Unknown Allergies, Adverse Reactions, Alerts Substance Reaction Severity Status INSULIN DETEMIR RED TOPICAL REACTINO Unknown Medications Medication Instructions Dosage Effective Dates (start - stop) Status Tirosint 100 mcg capsule take 1 capsule (100MCG) by oral route every day 100 MCG - Active diltiazem ER 300 mg capsule,extended release take 1 capsule (300MG) by oral route every day 300 MG - Active clonidine 0.2 mg tablet take 1 tablet (0.2MG) by oral route 2 times every day 0.2 MG - Active Pradaxa 150 mg capsule take 1 capsule (150MG) by oral route 2 times every day 150 MG - Active pravastatin 40 mg tablet take 1 tablet (40MG) by oral route every day 40 MG - Active lutein 10 mg tablet Take one tablet by mouth daily - Active multivitamin tablet take 1 by Oral route every day 0 - Active Humalog 100 unit/mL subcutaneous cartridge inject by subcutaneous route as per insulin sliding scale protocol 0 - Active Serevent Diskus 50 mcg/dose powder for inhalation inhale 1 puff by inhalation route 2 times every day in the morning and evening approximately 12 hours apart as needed 0 - Active flecainide 150 mg tablet take 1 tablet (150MG) by oral route every 12 hours 150 MG - Active flaxseed oil 1,030 mg capsule take 1 Capsule by Oral route 2 times every day 0 - Active Lantus 100 unit/mL subcutaneous solution inject 30 units by Intramuscular route every day at bedtime 0 - Active enalapril maleate 10 mg tablet take 1 tablet (10MG) by oral route every day 10 MG - Active Immunizations Vaccine Date Status Comments Unknown Results Test Name Date and Time Measure Units Reference Range Abnormal Flag Comments Unknown Vital Signs Date / Time: Height Weight Pulse Rate Blood Pressure Temperature /14:26:00 64.00 in 234.70 lbs 64 /min 154/56 mm[Hg] /14:33:00 184/66 mm[Hg] Procedures Procedure Date ELECTROCARDIOGRAM, COMPLETE Encounters Encounter Location Date Patient Visit [facility] [place] Patient Visit [facility] [place] Patient Visit [facility] Patient Visit [facility] [place] Patient Visit [facility] Patient Visit [facility] [place] Advance Directives Directive Effective Date Unknown
[2018-08-23] MEDS ORDERED: CEFUROXIME INJECTION 1,500 MG in WATER (STERILE) FOR INJECTION 15 ML IV ONE (06:15)
[2018-08-23] MEDS: LACTATED RINGERS 1,000 ML IV PRN ×3 (06:20→10:55)
[2018-08-23 06:25] VITALS: BP 185/60
[2018-08-23 06:30] VITALS: BP 185/60
--- NOTE | 2018-08-23 06:35 | NUR ---
FBS 302. ANESTHESIA NOTIFIED. 0720: DR. VALDES HERE TALKING WITH THE PATIENT. 0730: 15 UNITS OF REGULAR INSULIN GIVEN IV ORDERED PER ANESTHESIA. 0756: BLOOD SUGAR 255. ANESTHESIA NOTIFIED, NO NEW ORDERS.
[2018-08-23] MEDS ORDERED: CATHETER FLUSH 10 ML SYR IV PRN (07:00)
[2018-08-23] MEDS ORDERED: inSUlin (REGULAR) HUMAN 1 UNIT/0.01 ML (CHARGE PER UNIT) ONE (07:25)
[2018-08-23] MEDS ORDERED: diphenhydrAMINE 50 MG/ML INJ (BENADRYL) IVP PRN (07:30)
[2018-08-23] MEDS ORDERED: LACTATED RINGERS 1,000 ML IV PRN (07:30)
[2018-08-23] MEDS ORDERED: morphine PCA 100 MG/100 ML BAG IV PRN (07:30)
[2018-08-23] MEDS ORDERED: ONDANSETRON 4 MG/2 ML (SDV) Z0FRAN IV ONE (07:30)
[2018-08-23] MEDS ORDERED: FAMOTIDINE 20MG/2ML IV (PEPCID) IV ONE (07:30)
[2018-08-23] MEDS ORDERED: inSUlin (REGULAR) HUMAN 1 UNIT/0.01 ML (CHARGE PER UNIT) IV ONE (07:30)
[2018-08-23] MEDS ORDERED: ACETAMINOPHEN 325 MG TABLET PO PRN (07:30)
--- NOTE | 2018-08-23 07:37 | Progress Note-Pre Operative ---
Pre-Operative Progress Note H&P Reviewed The H&P was reviewed, patient examined and no changes noted. Date Seen by Provider: Aug 23, 2018 Time Seen by Provider: 07:20 Date H&P Reviewed: Aug 23, 2018 Time H&P Reviewed: 07:11 Pre-Operative Diagnosis: right knee primary osteoarthritis ROSALINA VALDES MD Aug 23, 2018 07:37
--- NOTE | 2018-08-23 07:38 | Progress Note-Post Operative ---
Post-Operative Progess Note Surgeon (s)/Senior Support Analyst (s) Surgeon ROSALINA VALDES MD Senior Support Analyst: Dillon Darnell Pre-Operative Diagnosis right knee primary osteoarthritis Post-Operative Diagnosis right knee primary osteoarthritis Procedure & Operative Findings Date of Procedure 08/23/18 Procedure Performed/Findings right total knee arthroplasty Anesthesia Type GETA Estimated Blood Loss Estimated blood loss (mL): minimal Specimens/Packing Specimens Removed none Packing: none ROSALINA VALDES MD Aug 23, 2018 07:38
[2018-08-23] MEDS ORDERED: OXYC1TAB87 PO (07:39)
--- NOTE | 2018-08-23 07:42 | D/C HH Face to Face Order ---
D/C Face to Face Orders Instructions for Patient Via [facility], Patient Instructions/FollowUp: three weeks Physician to follow Patient: three weeks Discharge Diet for Home: Regular Diet, ADA Diet Patient Data-Allergies,Ht & Wt Patient Allergies: Coded Allergies: insulin detemir (Verified Allergy, Intermediate, RASH, 09/22/17) red bumps at insertion site of injection Height (Feet): 5 Height (Inches): 5.00 Weight (Pounds): 226 Weight (Ounces): 4.0 Home Health Need/Face to Face Date of Face to Face: Aug 23, 2018 Clinical Findings: Instability, Muscle weakness, Pain with ambulation, Unsteady gait I have seen Pt [id number]: Yes Discharged To: Home Diagnosis/Conditions: right total knee arthroplasty Patient is Homebound due to: Jaydon fall risk due to instabilty, Muscle weakness , Pain w/ambulation Homebound Status Due to the above stated illness, injury or surgical procedure (medical condition or diagnosis) and associated clinical findings, the patient is homebound because of his/her inability to leave home except with aid of a supportive device and/or person AND leaving the home requires a considerable and taxing effort or is medically contraindicated. Pt req the following assistanc: Walker Home Health Nursing Orders Home Health Services Order: Physical Therapy-Evaluate & Treat DC right knee kelly and apply steri strips 09/06/18 Home Health Infusion Therapy Line Start Date: Aug 23, 2018 Line Start Time: 0600 Line Type: Peripheral IV Site Location: Forearm Therapy Orders Therapy Orders: Physical Therapy, PT to assess for OT Therapy Specific Orders: Eval assistive deivces, Teach enviro modifications/ safety, Gait training, Increase strength/endurance, Provider maintenance therapy , Restore ROM Certify Stmt I certify that this patient is under my care and that I, a nurse practitioner or a physician; a assistant womens volleyball coach working with me, had a face to face encounter that - meets the physician face to face encounter requirements with this patient as dated. ROSALINA VALDES MD Aug 23, 2018 07:42
[2018-08-23] MEDS ORDERED: MIDAZOLAM 2 MG/2 ML (VERSED) VIAL ONE (08:05)
[2018-08-23] MEDS ORDERED: fentaNYL INJECTION 100 MCG/2 ML AMP ONE ×2 (08:05→09:04)
[2018-08-23] MEDS ORDERED: BUPIVACAINE 0.5% 30 ML (SENSORCAINE) VIAL ONE (08:29)
[2018-08-23] MEDS ORDERED: INTRA-ARTICULAR IU ONE ×5 (08:30)
[2018-08-23] MEDS ORDERED: TRANEXAMIC ACID 100 MG/ML 10 ML INJECTION IV ONE (08:46)
[2018-08-23] MEDS ORDERED: LIDOCAINE PF 2% 5 ML (XYLOCAINE) VIAL ONE (09:02)
[2018-08-23] MEDS ORDERED: proPOfol 200 MG/20 ML (DIPRIVAN) VIAL IV ONE (09:02)
[2018-08-23] MEDS ORDERED: ONDANSETRON 4 MG/2 ML (SDV) Z0FRAN ONE (09:03)
[2018-08-23] MEDS ORDERED: SEVOFLURANE (ULTANE) 15 ML INHAL SOLN ONE ×7 (09:03→09:45)
[2018-08-23] MEDS ORDERED: PROMETHAZINE INJ 25 MG/ML (PHENERGAN) AMP IVP ONE (09:30)
[2018-08-23] MEDS ORDERED: morphine INJ 10 MG/ML 1ML (SYR OR VIAL) IVP ONE (09:30)
[2018-08-23] MEDS ORDERED: ONDANSETRON 4 MG/2 ML (SDV) Z0FRAN IVP PRN (09:30)
--- NOTE | 2018-08-23 10:41 | Progress Note-Standard ---
Standard Progress Note Progress Notes/Assess & Plan Date Seen by a Provider: Aug 23, 2018 Time Seen by a Provider: 10:39 Progress/Assessment & Plan post op check No complaints radiographs--HW well positioned. No fractures RLE--1 plus DP pulse with brisk cap refill. Sensation intact to light touch throughout. Intact DF and PF of toes and ankle s/p RTKA mobilize as able ROSALINA VALDES MD Aug 23, 2018 10:41
[2018-08-23] MEDS ORDERED: HYDROmorphone 2 MG/ML VIAL (DILAUDID) ONE (10:48)
[2018-08-23] MEDS ORDERED: HYDROmorphone 2 MG/ML VIAL (DILAUDID) IV ONE (11:00)
--- NOTE | 2018-08-23 11:13 | Diagnostic Imaging Report ---
EXAMINATION: Right knee in or at 1021h. INDICATION: Postop total knee AP and lateral views were obtained from the or. There is a total knee prosthesis in place. The prosthetic components appear to be in good position. There are also skin kelly anterior to the knee joint and there is gas in the soft tissues about the knee. There is no fracture or acute bony abnormality evident. IMPRESSION: Stable postoperative right knee. Dictated by: Dictated on workstation # [id number]
[2018-08-23 11:25] VITALS: BP 129/64
[2018-08-23] MEDS: SENNA W/DOCUSATE (SENOKOT S) TABLET PO SCH ×2 (11:32→21:16)
[2018-08-23] MEDS: NS IV 1000 ML 1,000 ML IV SCH ×2 (11:32→21:14)
--- NOTE | 2018-08-23 13:25 | OPERATIVE REPORT ---
DATE OF SERVICE: 08/23/2018 PREOPERATIVE DIAGNOSIS: Right knee primary osteoarthritis. POSTOPERATIVE DIAGNOSIS: Right knee primary osteoarthritis. PROCEDURE PERFORMED: Right total knee arthroplasty. SURGEON: Levar Valdes MD. TALENT DEVELOPMENT CONSULTANT: EDWARD Booth, who assisted throughout the procedure with positioning, retraction and close the incision. ANESTHESIA: General endotracheal by Ana M Wilkinson CRNA. TOURNIQUET TIME: Approximately 63 minutes at 300 mmHg. ESTIMATED BLOOD LOSS: Minimal. DRAINS: None. COMPLICATIONS: None. POSTOPERATIVE PLAN: Routine protocol. The patient was transported to the recovery room in awake and in stable condition. MATERIALS: MicroPort cemented size 4 femur, cemented size 4 tibia with 10 mm insert and cemented size 29 patellar button. STATEMENT OF MEDICAL NECESSITY: The patient is a 68-year-old female with longstanding progressive right knee pain. Radiographs revealed severe tricompartmental osteoarthritis. She has tried treatment with injections, anti-inflammatories, rest as well as arthroscopy and physical therapy without relief. Due to functional impairment and failure to improve with conservative measures, the patient elected to proceed with surgical intervention. DESCRIPTION OF PROCEDURE: After risks and benefits of the procedure were discussed and questions were answered and informed consent was signed and placed on chart, the operative site was confirmed and the operative leg initialed by the surgeon. The patient was then transferred to the operating room. After adequate level of general endotracheal anesthetic was obtained, a timeout was called confirming the operative site. The right lower extremity was prepped and draped in the usual sterile with the leg elevated and the knee flexed. Tourniquet was inflated to 300 mmHg. A standard anterior approach was utilized. Hemostasis was obtained with cautery. Medial parapatellar arthrotomy was performed leaving 1 cm cuff on the patella for later reattachment. A portion of the fat pad was resected and subperiosteal release was performed in the proximal medial tibia with a curved osteotome being careful down the bony surface. ACL was resected. Intramedullary guide was passed into the femur and the distal cutting block was placed and distal cut was made. The femur was sized to a size 4. The 4 cutting block was placed parallel to the epicondylar axis and cuts were made from posterior to anterior. Subperiosteal release was then carefully performed on the posterior distal femur being careful to stay on the bony surface. Intramedullary guide was then passed into the tibia and the cutting block was placed. The drop alberto transected the intramedullary axis when the cut was made. The baseplate was placed and the drop alberto transected the intramedullary axis and this was then prepared with the drill and keel punch. The trials were inserted with 10 mm insert. The trochlear cut was made. The patella was then prepared using the freehand technique by resecting 10 mm off the undersurface. The peg guide was placed and the peg holes were drilled. The 29 trial was placed. Full extension was easily obtained, 120 degrees of flexion with gravity was easily obtained. There was no significant anterior, posterior or medial/lateral laxity in flexion or extension. The trials were removed. The joint was irrigated with pulse lavage. The periarticular block was placed in the posterior capsule, medial and lateral retinaculum extensor mechanism. Subcutaneous tissues and the bone ends were irrigated and dried. The tibial baseplate was cemented into position. Excess cement was removed. The superior surface was irrigated and dried. The polyethylene insert was placed. Distal femur was irrigated and dried and the femoral prosthesis was cemented into position. Excess cement was removed. The knee was brought in full extension until the cement had cured. The undersurface of patella was irrigated and dried. The patellar button was cemented in position. Excess cement was removed. Once cement had cured, the knee was taken through range of motion. Full extension was obtained, 120 degrees of flexion with gravity was easily obtained. There was no anterior/posterior or medial/lateral laxity in flexion or extension. The patella tracked well. The joint was further irrigated with pulse lavage. Arthrotomy was closed with #2 Tevdek in [id number] interrupted fashion. Knee was flexed. Patella tracked well with no undue tension noted. The subcutaneous tissues were irrigated using a total of 6 liters pulse lavage throughout the procedure. A #0 Vicryl was used in the deep subcutaneous tissue, 2-0 Vicryl for the superficial subcutaneous tissue, kelly used on the skin. A soft dressing was applied. The tourniquet was deflated. The patient was transferred to the recovery room in awake and stable condition. Job ID: [id number] DocumentID: [id number] Dictated Date: 08/23/2018 10:00:45 Paint Sprayer Sandblaster Date: 08/23/2018 13:24:54 Dictated By: LEVAR VALDES MD
[2018-08-23] MEDS ORDERED: inSUlin ASPART (NovoLOG) 1 UNIT/0.01 ML (CHARGE PER UNIT) ONE (13:53)
[2018-08-23] MEDS: ONDANSETRON 4 MG/2 ML (SDV) Z0FRAN IVP PRN ×2 (14:04→20:05)
[2018-08-23] MEDS: inSUlin ASPART (NovoLOG) 1 UNIT/0.01 ML (CHARGE PER UNIT) SC SCH ×3 (14:14→21:18)
--- NOTE | 2018-08-23 14:18 | Physical Therapy Evaluation ---
PT Evaluation-General Medical Diagnosis Admission Date Aug 23, 2018 at 05:46 Medical Diagnosis: right TKA Onset Date: Aug 23, 2018 Therapy Diagnosis Therapy Diagnosis: impaired mobility, strength, endurance, ROM Height/Weight Height (Feet): 5 Height (Inches): 5.00 Weight (Pounds): 226 Weight (Ounces): 4.0 Precautions Precautions/Isolations: Fall Prevention, Standard Precautions Weight Bear Status Right Lower Extremity: Right Weight Bearing/Tolerated Referral Physician: Dillon Darnell APRN Reason for Referral: Evaluation/Treatment Medical History Additional Medical History PAST MEDICAL HISTORY: Atrial fibrillation, asthma and diabetes mellitus. PAST SURGICAL HISTORY: Right breast cyst excision, hysterectomy, bilateral knee arthroscopies. Reviewed History: Yes Social History Home: Single Level Current Living Status: Spouse Entry Into Home: Stairs With Railing PT Steps Into Home: 2 Prior/Core FIM Prior Level of Function Therapy Code Descriptions/Definitions Functional Kimball Measure: 0=Not Assessed/NA 4=Minimal Assistance 1=Total Assistance 5=Supervision or Setup 2=Maximal Assistance 6=Modified Kimball 3=Moderate Assistance 7=Complete Kimball Therapy Quality Codes: 6 Independent with activity with or without an assistive device 5 Patient requires set up or clean up by helper. Patient completes activity by themselves 4 Supervision or touching assist (CGA). [place] provide cues , steadying assist 3 The helper provides less than half the effort to complete the activity 2 The helper provides more than half the effort to complete the activity 1 Dependent. The helper does all the effort to complete an activity 7 Patient refused to complete or attempt activity 9 The patient did not perform the activity before the current illness or injury 88 Not attempted due to Medical conditions or safety concerns Functional Abilities and Goals: Independent: Patient completed the activities by him/herself, with or without an assistive device, with no assistance from a helper. Needed Some Help: Patient needed partial assistance from another person to complete activities. Dependent: A helper completed the activities for the patient. Unknown: Not Applicable: Bed Mobility: 6 Transfers (B,C,W/C) (FIM): 6 Gait: 6 Stairs: 6 Indoor Mobility (Ambulation): Independent Stairs: Independent Patient states she was using both a rolling walker and cane before surgery. PT Evaluation-Current Subjective Patient in bed pre tx, has no complaints of pain at rest and agrees to PT. Pt/Family Goals to be independent at home Objective Patient Orientation: Person, Place, Situation Attachments: SCD's, Polar Pack, IV ROM/Strength ROM Lower Extremities right knee flexion 85 degrees, extension +2 degrees Strength Lower Extremities NT Neuromuscular (Tone, Coordination, Reflexes) NT Sensory Vision: Wears Glasses Hearing: Functional Sensation Right Lower Extremit: Impaired Sensation Left Lower Extremity: Intact Sensation Lower Extremities Patient still has some numbness below knee and medial. Transfers Therapy Code Descriptions/Definitions Functional Kimball Measure: 0=Not Assessed/NA 4=Minimal Assistance 1=Total Assistance 5=Supervision or Setup 2=Maximal Assistance 6=Modified Kimball 3=Moderate Assistance 7=Complete Kimball Treatment Patient became nauseated after exercises and vomited into basin several times. Will try to get up tomorrow due to nausea. Patient performed total knee protocol on right side x10 (AP, QS, HS, SAQ, SLR) Assessment/Needs Patient has impaired mobility, strength, endurance, ROM post right total knee. Patient in bed post tx with nurse call, phone, tray, all needs met, nurse in the room to administer some medication. Patient in CPM with it set to patient' s leg and set to 60/-2 degrees and polar care on and SCD's on. Rehab Potential: Fair PT Short Term Goals Short Term Goals Time Frame: Aug 30, 2018 Transfers (B,C,W/C) (FIM): 5 Gait (FIM): 5 Gait Distance Comment: 150' Gait Level of Assist: 5 Gait Assistive Device: FWW PT Plan Problem List Problem List: Activity Tolerance, Functional Strength, Safety, Balance, Gait, Transfer, Bed Mobility, ROM Treatment/Plan Treatment Plan: Continue Plan of Care Treatment Plan: Bed Mobility, Education, Functional Activity Devika, Functional Strength, Gait, Safety, Therapeutic Exercise, Transfers Treatment Duration: Aug 30, 2018 Frequency: 11 times per week Estimated Hrs Per Day: .25 hour per day (15-30') Patient and/or Family Agrees t: Yes Safety Risks/Education Patient Education: Reviewed Precautions, Reviewed Use of Ice, Correct Positioning, Safety Issues Teaching Recipient: Patient Teaching Methods: Demonstration, Discussion Response to Teaching: Reinforcement Needed Discharge Recommendations Plan Patient will perform bed mobility and transfer training, balance and endurance training, functional strengthening, stair training, gait training, and education , to improve functional mobility and independence at home. Therapy D/C Recommendations: Home w/ Family Support Time/GCodes Time In: 1350 Time Out: 1410 Total Billed Treatment Time: 20 Total Billed Treatment [address]' CHARLOTTE STEINER PT Aug 23, 2018 14:18
[2018-08-23 16:00] VITALS: BP 192/81
[2018-08-23] MEDS: CEFUROXIME INJECTION 750 MG in WATER (STERILE) FOR INJECTION 10 ML IV SCH ×2 (16:00→23:23)
--- NOTE | 2018-08-23 16:51 | Consultation-Hospitalist ---
HPI History of Present Illness: HPI/Chief Complaint CC: s/p right knee replacement POD # 0 Dr Pagan uncomplicated HPI: HPI: This is a 68yoWF s/p uncomplicated right knee total knee replacement by Dr. Pagan who presents to room 413 in a stable fashion. Pain medication has been ordered. Pt maintains on CPM machine on the right leg and home medications ere reviewed and restarted. 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 Pt denies any other significant problems currently. Her family is at the bedside. She sees Dr. Dunlap on a regular basis for atrial fib. Source: patient, family, RN/MD, old records Exam Limitations: no limitations Date Seen 08/23/18 Attending Physician Levar Pagan MD PCP Colton Knott MD Referring Physician Date of Admission Aug 23, 2018 at 05:46 Home Medications & Allergies Home Medications Reviewed patient Home Medication Reconciliation performed by pharmacy medication reconciliations medication technician and/or nursing. Patients Allergies have been reviewed. 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) Alcohol Use: Denies Use Recreational Drug Use: No Smoking Status: Never a Smoker 2nd Hand Smoke Exposure: No Physical Abuse Screen: No Sexual Abuse: No Recent Foreign Travel: No Contact w/other who traveled: No Recent Hopitalizations: No Recent Infectious Disease Expo: No Immunizations Up To Date Tetanus Booster (TDap): Less than 5yrs Pediatric: No Date of Pneumonia Vaccine: May 04, 2016 Date of Influenza Vaccine: Feb 28, 2017 Seasonal Allergies Seasonal Allergies: No Past Medical History Surgeries: Bladder Surgery, Breast, Hysterectomy, Orthopedic Currently Using CPAP: Yes Currently Using BIPAP: No Cardiac: Atrial Fibrillation, High Cholesterol, Hypertension 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: No Sexually Transmitted Disease: No HIV/AIDS: No Hysterectomy Gastrointestinal: Gastroesophageal Reflux Musculoskeletal: Arthritis Endocrine: Diabetes, Insulin dep, Hypothyroidsim Loss of Vision: Bilateral Hearing Impairment: Denies History of Blood Disorders: No Adverse Reaction to Blood [place]: No (N/A) Family History Arthritis 19 FATHER 19 MOTHER Asthma 19 FATHER Cardiovascular disease 19 FATHER 19 MOTHER Cataracts 19 MOTHER Deafness or hearing loss 19 FATHER Dementia 19 MOTHER Diabetes mellitus G8 SISTER G8 SISTER Glaucoma 19 FATHER Hypertension 19 MOTHER Prostate cancer 19 FATHER Respiratory disorder 19 FATHER Thyroid disease G8 SISTER No Pertinent Family Hx Review of Systems Constitutional: see HPI, weakness EENTM: no symptoms reported Respiratory: no symptoms reported Cardiovascular: no symptoms reported Gastrointestinal: nausea Musculoskeletal: joint pain Skin: no symptoms reported Psychiatric/Neurological: No Symptoms Reported All Other Systems Reviewed Negative Unless Noted: Yes Physical Exam Physical Exam Vital Signs Vital Signs - First Documented 08/23/18 06:25 Temp 97.8 Pulse 81 Resp 18 B/P (MAP) 185/60 (101) Pulse Ox 96 O2 Delivery Room Air Capillary Refill : Height, Weight, BMI Height: 5'5.00" Weight: 226lbs. 4.0oz. [id number]; 37.7 BMI Method:Stated General Appearance: No Apparent Distress, WD/WN, Chronically ill, Obese Eyes: Bilateral Eye Normal Inspection, Bilateral Eye PERRL HEENT: PERRL/EOMI, Normal ENT Inspection, Pharynx Normal Neck: Full Range of Motion, Normal Inspection, Non Tender, Supple, Carotid Bruit Respiratory: Chest Non Tender, Lungs Clear, Normal Breath Sounds, No Accessory Muscle Use, No Respiratory Distress Cardiovascular: No Edema, No Gallop, No JVD, No Murmur, Normal Peripheral Pulses, Irregularly Irregular Gastrointestinal: Normal Bowel Sounds, No Organomegaly, No Pulsatile Mass, Non Tender, Soft Back: Normal Inspection, No CVA Tenderness, No Vertebral Tenderness Extremity: Normal Capillary Refill, Normal Inspection, Normal Range of Motion, Non Tender, No Calf Tenderness, No Pedal Edema Neurologic/Psychiatric: Alert, Oriented x3, No Motor/Sensory Deficits, Normal Mood/Affect, Other (right leg decreased ROM in CPM machine) Skin: Normal Color, Warm/Dry Lymphatic: No Adenopathy Results Results/Procedures Labs Laboratory Tests 08/24/18 05:30 Patient resulted labs reviewed. Assessment/Plan Assessment and Plan Assess & Plan/Chief Complaint Assessment: s/p right knee replacement POD # 0 DM AF HTN OA Post op nausea Plan: Pain control Home meds Insulin IS Check labs Diagnosis/Problems Diagnosis/Problems (1) OSTEOARTHRITIS RIGHT KNEE Status: Chronic (2) Hypertension Status: Chronic Qualifiers: Hypertension type: essential hypertension Qualified Codes: I10 - Essential (primary) hypertension (3) Nausea and vomiting Status: Acute Qualifiers: Vomiting type: unspecified Vomiting Intractability: non-intractable Qualified Codes: R11.2 - Nausea with vomiting, unspecified (4) Diabetes mellitus Status: Chronic Qualifiers: Diabetes mellitus type: type 2 Diabetes mellitus meterman insulin use: with shelter use Diabetes mellitus complication status: with unspecified complications Qualified Codes: E11.8 - Type 2 diabetes mellitus with unspecified complications; Z79.4 - care home (current) use of insulin (5) Atrial fibrillation Status: Chronic Qualifiers: Atrial fibrillation type: chronic Qualified Codes: I48.2 - Chronic atrial fibrillation (6) Anticoagulant prescribed Status: Chronic HEATHER HOOKS DO Aug 23, 2018 16:50
--- NOTE | 2018-08-23 18:41 | Consultation-Cardiology ---
HPI-Cardiology Cardiology Consultation Date of Consultation 08/23/18 Date of Admission Time Seen by Provider: 18:37 Indication: atrial fibrillation HPI 68 years old lady with history of paroxysmal atrial fibrillation, hypertension. Underwent right knee replacement with Dr. Pagan. I was called for perioperative cardiac management, she denied any chest pain or shortness of breath, no palpitation, no sig. Or near syncopal episodes. No claudications. Has been compliant with her medications Home Medications & Allergies Allergies: Coded Allergies: insulin detemir (Verified Allergy, Intermediate, RASH, takes Lantus & Humalog at home, 08/23/18) red bumps at insertion site of injection Has received regular insulin & Novolog during previous hospitalization Home Medication List Reviewed: Yes HQL-Mzggyr-Qxxqou Hx Patient Social History Alcohol Use: Denies Use Recreational Drug Use: No 2nd Hand Smoke Exposure: No Recent Foreign Travel: No Recent Infectious Disease Expo: No Recent Hopitalizations: No Physical Abuse Screen: No Sexual Abuse: No Immunizations Up To Date Tetanus Booster (TDap): Less than 5yrs Date of Pneumonia Vaccine: May 04, 2016 Date of Influenza Vaccine: Feb 28, 2017 Past Medical History Past medical history as described Family Medical History Significant Family History: No Pertinent Family Hx Family History: Arthritis 19 FATHER 19 MOTHER Asthma 19 FATHER Cardiovascular disease 19 FATHER 19 MOTHER Cataracts 19 MOTHER Deafness or hearing loss 19 FATHER Dementia 19 MOTHER Diabetes mellitus G8 SISTER G8 SISTER Glaucoma 19 FATHER Hypertension 19 MOTHER Prostate cancer 19 FATHER Respiratory disorder 19 FATHER Thyroid disease G8 SISTER Review of Systems Constitutional: no symptoms reported, see HPI EENTM: see HPI, no symptoms reported Respiratory: see HPI; No cough, No dyspnea on exertion, No hemoptysis, No orthopnea, No phlegm, No short of breath, No stridor, No wheezing, No other Cardiovascular: see HPI; No chest pain, No edema, No Hx of Intervention, No palpitations, No syncope, No vascular heart diseas, No other Gastrointestinal: no symptoms reported, see HPI Genitourinary: no symptoms reported, see HPI Musculoskeletal: see HPI, gout, joint pain Skin: see HPI Psychiatric/Neurological: No Symptoms Reported, See HPI Reviewed Test Results Reviewed Test Results Lab Laboratory Tests Test 08/23/18 06:35 08/23/18 07:56 08/23/18 10:15 08/23/18 12:25 Range/Units Glucometer 302 H 255 H 184 H 299 H 70-110 MG/DL Test 08/23/18 13:51 08/23/18 14:12 08/23/18 15:26 08/23/18 17:22 Range/Units Glucometer 366 H 358 H 348 H 237 H 70-110 MG/DL Physical Exam Vital Signs Vital Signs - First Documented 08/23/18 06:25 Temp 97.8 Pulse 81 Resp 18 B/P (MAP) 185/60 (101) Pulse Ox 96 O2 Delivery Room Air Capillary Refill : Height, Weight, BMI Height: 5'5.00" Weight: 226lbs. 4.0oz. 102.021747eh; 37.7 BMI Method:Stated General Appearance: No Apparent Distress, WD/WN Eyes: Bilateral Eye Normal Inspection, Bilateral Eye PERRL, Bilateral Eye EOMI HEENT: PERRL/EOMI, TMs Normal, Normal ENT Inspection, Pharynx Normal Neck: Full Range of Motion, Normal Inspection, Non Tender, Supple, Carotid Bruit Respiratory: Chest Non Tender, Lungs Clear, Normal Breath Sounds, No Accessory Muscle Use, No Respiratory Distress Cardiovascular: Regular Rate, Rhythm, No Edema, No Gallop, No JVD, No Murmur, Normal Peripheral Pulses Gastrointestinal: Normal Bowel Sounds, No Organomegaly, No Pulsatile Mass, Non Tender, Soft Back: Normal Inspection, No CVA Tenderness, No Vertebral Tenderness Extremity: Normal Capillary Refill, Normal Inspection, Normal Range of Motion, Non Tender, No Calf Tenderness, No Pedal Edema, Other (right knee replacement surgery) Neurologic/Psychiatric: Alert, Oriented x3, No Motor/Sensory Deficits, Normal Mood/Affect Skin: Normal Color, Warm/Dry Lymphatic: No Adenopathy A/P-Cardiology Admission Diagnosis Osteoarthritis Chronic atrial fibrillation Hypertension Hyperlipidemia Assessment/Plan Status post right knee replacement, surgery done on August 23, 2018, recovering slowly. Next Paroxysmal atrial fibrillation, currently in sinus rhythm. Had history of atrial fibrillation, I will monitor on telemetry, restart flecainide and monitor. Next Chronic anticoagulation with Eliquis, has been on hold for the surgery, restart the medication once deemed reasonable by Dr. Pagan next History of normal coronary system by cardiac catheterization in October 2011, had a cardiac stress test in May 2018 showing no sig ischemia or infarction. Continue to monitor, followed by Dr. Dunlap Hypertension, controlled, restart home medication monitor blood pressure Diabetes mellitus, followed by endocrinology, managed by primary care physician Hypothyroidism, followed and managed by primary care physician Hyperlipidemia, maintained on statin. Followed by Dr. Farias Mild bilateral carotid stenosis, ultrasound was done in February 2018, the right carotid artery can be seen pulsatile in the neck. History of obstructive sleep apnea, followed and managed by SELINA Meng MD Aug 23, 2018 6:41 pm
[2018-08-23 20:00] VITALS: BP 162/69
--- NOTE | 2018-08-23 20:05 | NUR ---
This RN went to patient's room to give carlosan. This RN speaks to patient about her Morphine SHANK CEMENTER HAND that has not been initiated at this time. Patient states that she does not want it right now because she is very nauseated. Patient also states that if she wants it later, she will let me know.
[2018-08-23] MEDS ORDERED: FLECAINIDE ACETATE 150 MG PO SCH (21:00)
[2018-08-23] MEDS ORDERED: NON-FORMULARY MEDICATION 1 EA EA (Clonidine HCl 0.2 MG) PO SCH (21:00)
[2018-08-23] MEDS: cloNIDine 0.2 MG (CATAPRES) TAB PO SCH (21:16)
[2018-08-23] MEDS: doxAzosin 2 MG (CARDURA) TAB PO SCH (21:16)
[2018-08-23] MEDS: oxyCODONE/APAP 5/325MG (PERCOCET 5) TABLET PO PRN (21:16)
[2018-08-23] MEDS: FLECAINIDE 100 MG (TAMBOCOR) TAB PO SCH (21:16)
[2018-08-24 00:34] VITALS: BP 148/63
[2018-08-24 04:00] VITALS: BP 158/68
[2018-08-24 05:58] LABS: BASOPHILS % (AUTO) 0 % (0-10); EOSINOPHILS % (AUTO) 0 % (0-10); HEMATOCRIT 29 % (35-52); HEMOGLOBIN 9.2 G/DL (11.5-16.0); LYMPHOCYTES # (AUTO) 1.2 X 10^3 (1.0-4.0); LYMPHOCYTES % (AUTO) 12 % (12-44); MEAN CORPUSCULAR HGB CONC 31 G/DL (32-36); MEAN CORPUSCULAR VOLUME 88 FL (80-99); MONOCYTES # (AUTO) 1.4 X 10^3 (0.0-1.0); MONOCYTES % (AUTO) 14 % (0-12); NEUTROPHILS # (AUTO) 7.6 X 10^3 (1.8-7.8); NEUTROPHILS % (AUTO) 74 % (42-75); PLATELET COUNT 250 10^3/uL (130-400); RED CELL DISTRIBUTION WIDTH 15.5 % (10.0-14.5); WHITE BLOOD COUNT 10.2 10^3/uL (4.3-11.0)
[2018-08-24 05:59] LABS: MEAN CORPUSCULAR HEMOGLOBIN 27 PG (25-34)
[2018-08-24] MEDS: LEVOTHYROXINE 100 MCG (LEVOTHROID) TAB PO SCH (06:10)
[2018-08-24] MEDS: MULTIVIT W/MINERALS TAB (THERAGRAN M) PO SCH (06:10)
[2018-08-24] MEDS: inSUlin ASPART (NovoLOG) 1 UNIT/0.01 ML (CHARGE PER UNIT) SC SCH ×4 (06:10→20:14)
[2018-08-24] MEDS: oxyCODONE/APAP 5/325MG (PERCOCET 5) TABLET PO PRN ×4 (06:10→21:35)
[2018-08-24 06:18] LABS: ALANINE AMINOTRANSFERASE 15 U/L (0-55); ALBUMIN 3.4 GM/DL (3.2-4.5); ALKALINE PHOSPHATASE 89 U/L (40-136); BUN/CREATININE RATIO 27; CARBON DIOXIDE 21 MMOL/L (21-32); CHLORIDE 105 MMOL/L (98-107); CREATININE SERUM 0.88 MG/DL (0.60-1.30); GFR ESTIMATED > 60; GLUCOSE 296 MG/DL (70-105); SODIUM 137 MMOL/L (135-145); TOTAL PROTEIN 6.6 GM/DL (6.4-8.2)
--- NOTE | 2018-08-24 06:57 | Anesthesia-General Post-Op ---
General Patient Condition Mental Status/LOC: Same as Preop Cardiovascular: Satisfactory Nausea/Vomiting: Absent Respiratory: Satisfactory Pain: Controlled Complications: Absent Post Op Complications Complications None Follow Up Care/Instructions Patient Instructions None needed. Anesthesia/Patient Condition Patient Condition Patient is doing well, no complaints, stable vital signs. No apparent adverse anesthesia problems from geta or regional block. No complications reported per nursing. DANAE JOAQUIN CRNA Aug 24, 2018 06:57
[2018-08-24] MEDS ORDERED: MULTIVIT W/MINERALS TAB (THERAGRAN M) PO SCH (07:00)
[2018-08-24] MEDS ORDERED: ENOXAPARIN 30 MG/0.3 ML (LOVENOX) SYR SC SCH (07:30)
--- NOTE | 2018-08-24 07:34 | Cardiology Progress Note ---
Subjective Date Seen by Provider: Aug 24, 2018 Time Seen by Provider: 07:32 Subjective/Events-last exam patient is laying down in bed, feeling better, still having pain in her knee. Denied any chest pain Review of Systems General: No Chills, No Night Sweats, No Fatigue, No Malaise, No Appetite, No Other HEENT: No Head Aches, No Visual Changes, No Eye Pain, No Ear Pain, No Dysphasia , No Sinus Congestion, No Post Nasal Drip, No Sore Throat, No Other Pulmonary: No Dyspnea, No Cough, No Pleuritic Chest Pain, No Other Cardiovascular: No: Chest Pain, Palpitations, Orthopnea, Paroxysmal Noc. Dyspnea, Edema, Lt Headedness, Other Objective-Cardiology Exam Last Set of Vital Signs Vital Signs 08/23/18 08/24/18 16:52 04:00 Temp 98.6 Pulse 81 Resp 20 B/P (MAP) 158/68 (98) Pulse Ox 95 O2 Delivery Room Air O2 Flow Rate 2.00 Capillary Refill : I&O Intake and Output 08/24/18 00:00 Intake Total 2315 ml Output Total 600 ml Balance 1715 ml Intake Oral 300 ml IV Total 2015 ml Output Urine Total 350 ml Emesis 250 ml Daily Weight Change No No General: Alert, Oriented X3, Cooperative HEENT: Atraumatic, PERRLA Neck: Supple, No JVD, No Thyromegaly Lungs: Clear to Auscultation, Normal Air Movement Heart: Regular Rate, Normal S1, Normal S2, No Murmurs Abdomen: Normal Bowel Sounds, Soft, No Tenderness, No Hepatosplenomegaly, No Masses Extremities: No Clubbing, No Cyanosis, No Edema, Normal Pulses, No Tenderness/ Swelling Skin: No Rashes, No Breakdown, No Significant Lesion Neuro: Normal Gait, Normal Speech, Normal Tone, Sensation Intact Psych/Mental Status: Mental Status NL, Mood NL Results Lab Laboratory Tests 08/24/18 05:30 A/P-Cardiology Admission Diagnosis Osteoarthritis Chronic atrial fibrillation Hypertension Hyperlipidemia Assessment/Plan Status post right knee replacement, surgery done on August 23, 2018, having mild pain. Managed by primary care physician Paroxysmal atrial fibrillation, currently in sinus rhythm. Had history of atrial fibrillation, telemetry showed sinus rhythm. Continue to monitor Chronic anticoagulation with Eliquis, has been on hold for the surgery, restart Eliquis once deemed reasonable by Dr. Pagan History of normal coronary system by cardiac catheterization in October 2011, had a cardiac stress test in May 2018 showing no sig ischemia or infarction. Continue to monitor, followed by Dr. Dunlap Hypertension, home medications were restarted. Continue to monitor blood pressure Diabetes mellitus, followed by endocrinology, managed by primary care physician Hypothyroidism, followed and managed by primary care physician Hyperlipidemia, maintained on statin. Followed by Dr. Farias Mild bilateral carotid stenosis, ultrasound was done in February 2018, the right carotid artery can be seen pulsatile in the neck. History of obstructive sleep apnea, followed and managed by SELINA Meng MD Aug 24, 2018 07:34
--- NOTE | 2018-08-24 07:58 | Progress Note-Standard ---
Standard Progress Note Progress Notes/Assess & Plan Date Seen by a Provider: Aug 24, 2018 Time Seen by a Provider: 07:56 Progress/Assessment & Plan post op check No complaints radiographs--HW well positioned. No fractures RLE--1 plus DP pulse with brisk cap refill. Sensation intact to light touch throughout. Intact DF and PF of toes and ankle s/p RTKA mobilize as able Final Diagnosis feeling better this AM Vital Signs Date Time Temp Pulse Resp B/P (MAP) Pulse Ox O2 Delivery O2 Flow Rate FiO2 08/24/18 04:00 98.6 81 20 158/68 (98) 95 Room Air 08/24/18 01:00 59 08/24/18 00:34 99.5 75 18 148/63 (91) 93 Room Air 08/23/18 21:41 84 08/23/18 21:00 Room Air 08/23/18 20:00 99.5 89 20 162/69 (100) 92 Room Air 08/23/18 16:52 100 Nasal Cannula 2.00 08/23/18 16:00 100.7 87 17 192/81 (118) 97 Nasal Cannula 2.00 08/23/18 11:25 17 100 Nasal Cannula 2 08/23/18 11:25 Nasal Cannula 2 08/23/18 11:25 97.4 68 18 129/64 (85) 100 Nasal Cannula 2.00 08/23/18 11:20 16 100 Nasal Cannula 2 08/23/18 11:10 Nasal Cannula 2 08/23/18 11:10 14 100 08/23/18 11:00 OxyMask 4 08/23/18 11:00 16 96 Room Air 08/23/18 10:50 18 100 OxyMask 4 08/23/18 10:50 OxyMask 4 08/23/18 10:45 OxyMask 4 08/23/18 10:40 20 100 OxyMask 4 08/23/18 10:35 OxyMask 4 08/23/18 10:35 OxyMask 4 08/23/18 10:30 OxyMask 10 08/23/18 10:30 16 100 OxyMask 10 08/23/18 10:20 22 100 OxyMask 10 08/23/18 10:15 OxyMask 10 08/23/18 10:10 18 100 OxyMask 10 08/23/18 10:06 OxyMask 10 08/23/18 10:06 16 100 OxyMask 10 I & O 08/24/18 07:00 Intake Total 2865 ml Output Total 600 ml Balance 2265 ml Laboratory Tests Test 08/23/18 10:15 08/23/18 12:25 08/23/18 13:51 08/23/18 14:12 Range/Units Glucometer 184 H 299 H 366 H 358 H 70-110 MG/DL Test 08/23/18 15:26 08/23/18 17:22 08/23/18 18:51 08/23/18 21:01 Range/Units Glucometer 348 H 237 H 200 H 209 H 70-110 MG/DL Test 08/24/18 05:30 08/24/18 06:04 Range/Units White Blood Count 10.2 4.3-11.0 10^3/uL Red Blood Count 3.35 L 4.35-5.85 10^6/uL Hemoglobin 9.2 L 11.5-16.0 G/DL Hematocrit 29 L 35-52 % Mean Corpuscular Volume 88 80-99 FL Mean Corpuscular Hemoglobin 27 25-34 PG Mean Corpuscular Hemoglobin Concent 31 L 32-36 G/DL Red Cell Distribution Width 15.5 H 10.0-14.5 % Platelet Count 250 130-400 10^3/uL Mean Platelet Volume 11.0 H 7.4-10.4 FL Neutrophils (%) (Auto) 74 42-75 % Lymphocytes (%) (Auto) 12 12-44 % Monocytes (%) (Auto) 14 H 0-12 % Eosinophils (%) (Auto) 0 0-10 % Basophils (%) (Auto) 0 0-10 % Neutrophils # (Auto) 7.6 1.8-7.8 X 10^3 Lymphocytes # (Auto) 1.2 1.0-4.0 X 10^3 Monocytes # (Auto) 1.4 H 0.0-1.0 X 10^3 Eosinophils # (Auto) 0.0 0.0-0.3 10^3/uL Basophils # (Auto) 0.0 0.0-0.1 10^3/uL Sodium Level 137 135-145 MMOL/L Potassium Level 5.0 3.6-5.0 MMOL/L Chloride Level 105 98-107 MMOL/L Carbon Dioxide Level 21 21-32 MMOL/L Anion Gap 11 5-14 MMOL/L Blood Urea Nitrogen 24 H 7-18 MG/DL Creatinine 0.88 0.60-1.30 MG/DL Estimat Glomerular Filtration Rate > 60 BUN/Creatinine Ratio 27 Glucose Level 296 H 70-105 MG/DL Calcium Level 9.0 8.5-10.1 MG/DL Corrected Calcium 9.5 8.5-10.1 MG/DL Total Bilirubin 1.0 0.1-1.0 MG/DL Aspartate Amino Transf (AST/SGOT) 18 5-34 U/L Alanine Aminotransferase (ALT/SGPT) 15 0-55 U/L Alkaline Phosphatase 89 40-136 U/L Total Protein 6.6 6.4-8.2 GM/DL Albumin 3.4 3.2-4.5 GM/DL Glucometer 313 H 70-110 MG/DL RLE--dressing intact. No calf tenderness. neg Karolina's s/p RTKA PT/OT ROSALINA VALDES MD Aug 24, 2018 07:58
[2018-08-24 08:21] VITALS: BP 169/70
[2018-08-24] MEDS: doxAzosin 2 MG (CARDURA) TAB PO SCH ×2 (08:26→20:14)
[2018-08-24] MEDS: ASPIRIN E.C. 81 MG (ECOTRIN) TAB PO SCH (08:26)
[2018-08-24] MEDS: LORATADINE (CLARITIN) 10 MG TAB PO SCH (08:26)
[2018-08-24] MEDS: SENNA W/DOCUSATE (SENOKOT S) TABLET PO SCH ×2 (08:26→20:14)
[2018-08-24] MEDS: cloNIDine 0.2 MG (CATAPRES) TAB PO SCH ×2 (08:26→20:14)
[2018-08-24] MEDS: NS IV 1000 ML 1,000 ML IV SCH ×2 (08:26→21:36)
[2018-08-24] MEDS: DILTIAZEM 300 MG (CARDIZEM CD) CAP PO SCH (08:26)
[2018-08-24] MEDS: FLECAINIDE 100 MG (TAMBOCOR) TAB PO SCH ×2 (08:27→20:14)
[2018-08-24] MEDS: MONTELUKAST 10 MG (SINGULAIR) TAB PO SCH (08:27)
[2018-08-24] MEDS: ENALAPRIL 10 MG (VASOTEC) TAB PO SCH (08:27)
--- NOTE | 2018-08-24 08:50 | Occupational Therapy Eval ---
OT Evaluation-General/PLF Medical Diagnosis Admission Date Aug 23, 2018 at 05:46 Medical Diagnosis: right TKA Onset Date: Aug 23, 2018 Therapy Diagnosis Therapy Diagnosis: decrease ADLS and mobility Height/Weight Height (Feet): 5 Height (Inches): 5.00 Weight (Pounds): 226 Weight (Ounces): 4.0 Precautions Precautions/Isolations: Fall Prevention, Standard Precautions Safety Interventions: None Weight Bear Status Weight Bearing Restriction: Weight Bearing/Tolerated Location Restriction: LE Bilateral Referral Physician: Dillon Darnell APRN Referral Reason: Evaluation/Treatment Medical History Pertinent Medical History: Atrial Fib Additional Medical History Atrial fibrillation, asthma and diabetes mellitus. Current History per h&P: "The patient is a 68-year-old female with longstanding progressive right knee pain. She has undergone treatment with arthroscopy as well as injections and physical therapy. She reports progressive symptoms and interference with activities of daily living and because of this, elected to proceed with surgical intervention. Radiographs reveals severe lateral joint space narrowing with moderate medial and patellofemoral joint space narrowing." Reviewed History: Yes Social History Home: Single Level Current Living Status: Spouse Entry Into Home: Stairs With Railing Steps Into Home: 2 walk in shower with shower chair ADL-Prior Level of Function Therapy Code Descriptions/Definitions Functional [place] Measure: 0=Not Assessed/NA 4=Minimal Assistance 1=Total Assistance 5=Supervision or Setup 2=Maximal Assistance 6=Modified [place] 3=Moderate Assistance 7=Complete [place] Therapy Quality Codes: 6 Independent with activity with or without an assistive device 5 Patient requires set up or clean up by helper. Patient completes activity by themselves 4 Supervision or touching assist (CGA). [place] provide cues , steadying assist 3 The helper provides less than half the effort to complete the activity 2 The helper provides more than half the effort to complete the activity 1 Dependent. The helper does all the effort to complete an activity 7 Patient refused to complete or attempt activity 9 The patient did not perform the activity before the current illness or injury 88 Not attempted due to Medical conditions or safety concerns Functional Abilities and Goals: Independent: Patient completed the activities by him/herself, with or without an assistive device, with no assistance from a helper. Needed Some Help: Patient needed partial assistance from another person to complete activities. Dependent: A helper completed the activities for the patient. Unknown: Not Applicable: Self Care: Independent Functional Cognition: Independent DME/Equipment: Bath Chair Drive Self: Yes OT Current Status Subjective pt laying in bed upon OT Arrival in no appearnt distress. pt agreed to OT evaluation session. pt complains of 3/10 pain in right knee. NSG made aware Mental Status/Objective Patient Orientation: Person, Place, Time, Situation, Normal For Age Current Glasses/Contacts: Yes Hearing Aids: No Dentures/Partials: No Hand Dominance: Right Upper Extremity ROM WFL Upper Extremity Coordination WFL Upper Extremity Sensation WFL Upper Extremity Strength WFL ADL-Treatment Therapy Code Descriptions/Definitions Functional [place] Measure: 0=Not Assessed/NA 4=Minimal Assistance 1=Total Assistance 5=Supervision or Setup 2=Maximal Assistance 6=Modified [place] 3=Moderate Assistance 7=Complete [place] Therapy Quality Codes: 6 Independent with activity with or without an assistive device 5 Patient requires set up or clean up by helper. Patient completes activity by themselves 4 Supervision or touching assist (CGA). [place] provide cues , steadying assist 3 The helper provides less than half the effort to complete the activity 2 The helper provides more than half the effort to complete the activity 1 Dependent. The helper does all the effort to complete an activity 7 Patient refused to complete or attempt activity 9 The patient did not perform the activity before the current illness or injury 88 Not attempted due to Medical conditions or safety concerns Eating (FIM): 7 Grooming (FIM): 4 (CGA while standing for safety/ balance) Bathing (FIM): 3 (based on clinical judgement) Lower Body Dressing (FIM): 1 (abran socks) Toileting (FIM): 4 (billled as treatment. CGA while standing for safety/ balance. pt eduation on standing to perform hygiene secodnary to limited ROM while sitting on toilet. ) Toilet/Commode Transfer (FIM): 4 (pt educaton on proper sit to stand. hand placement while using RW. pt required MOD VC for follow throught of technique. ) Education OT Patient Education: Energy conservation, Modified ADL techniques, Transfer techniques Teaching Recipient: Patient Teaching Methods: Demonstration, Discussion Response to Teaching: Verbalize Understanding, Return Demonstration OT Short Term Goals Short Term Goals Grooming(FIM): 5 (standing at sink) Bathing(FIM): 5 Lower Body Dressing(FIM): 5 Transfers (B,C,W/C) (FIM): 5 Toilet/Commode Transfer(FIM): 5 1=Demonstrate adherence to instructed precautions during ADL tasks. 2=Patient will verbalize/demonstrate understanding of assistive devices/ modifications for ADL. 3=Patient will improve strength/tolerance for activity to enable patient to perform ADL's. OT Spice Mixer Goals Spice Mixer Goals Grooming(FIM): 7 Bathing(FIM): 6 (use of AE PRN) Lower Body Dressing(FIM): 6 (use of AE PRN) Toilet/Commode Transfer(FIM): 6 1=Demonstrate adherence to instructed precautions during ADL tasks. 2=Patient will verbalize/demonstrate understanding of assistive devices/ modifications for ADL. 3=Patient will improve strength/tolerance for activity to enable patient to perform ADL's. OT Education/Plan Problem List/Assessment Assessment: Decreased Activ Tolerance, Impaired Funct Balance, Impaired I ADL's , Impaired Self-Care Skills pt present to OT service with dx of "right TKA" pt laying in bed upon OT arrival in no appearnt distress. pt agreed to OT evaluation session. pt presents with functional limitations affecting areas of ADLS and functional transfers with deficits in: decrease dyn standing balance, decrease transfers, limited activity tolerance, decrease LB dressing, and decrease knowledge/ understanding of AE. pt would benefit from OT services to increase independence with ADLs/ functional transfers and to address above mention deficits. anticipated d/c home Discharge Recommendations Plan/Recommendations: Continue POC Therapy D/C Recommendations: Home w/ Family Support Equpiment Recommendations-D/C: Supervisor Brine, Sock Aide Treatment Plan/Plan of Care Treatment,Training & Education: Yes Patient would benefit from OT for education, treatment and training to promote independence in ADL's, mobility, safety and/or upper extremity function for ADL' s. Plan of Care: ADL Retraining, Functional Mobility, UE Funct Exercise/Act Treatment Duration: Aug 31, 2018 Frequency: 5 times per week Estimated Hrs Per Day: .5 hour per day Agreement: Yes Rehab Potential: Good Time/GCodes Start Time: 08:10 Stop Time: 08:35 Billed Treatment Time EVM 15 minutes ADL 10 minutes, 1 unit OSBALDO RAMOS OT Aug 24, 2018 08:50
[2018-08-24] MEDS ORDERED: PANTOPRAZOLE 40 MG (PROTONIX) TAB PO SCH (09:00)
[2018-08-24] MEDS ORDERED: NON-FORMULARY MEDICATION 1 EA EA (Diltiazem HCl (Cartia Xt) 300 MG) PO SCH (09:00)
[2018-08-24] MEDS ORDERED: OMEPRAZOLE 20 MG (PriLOSEC) CAP NON-FORMULARY PO SCH (09:00)
[2018-08-24] MEDS ORDERED: NON-FORMULARY MEDICATION 1 EA EA (Cetirizine HCl 10 MG) PO SCH (09:00)
--- NOTE | 2018-08-24 09:12 | Physical Therapy Daily Note ---
PT Daily Note-Current Subjective Patient just complete with OT and agrees to PT. Pain Numeric Pain Scale: 5-Moderate Pain Location: Right Location Body Site: Knee Pain Description: Acute Mental Status Patient Orientation: Normal For Age Attachments: Polar Pack, IV Transfers Therapy Code Descriptions/Definitions Functional [place] Measure: 0=Not Assessed/NA 4=Minimal Assistance 1=Total Assistance 5=Supervision or Setup 2=Maximal Assistance 6=Modified [place] 3=Moderate Assistance 7=Complete [place] Therapy Quality Codes: 6 Independent with activity with or without an assistive device 5 Patient requires set up or clean up by helper. Patient completes activity by themselves 4 Supervision or touching assist (CGA). [employer] provide cues , steadying assist 3 The helper provides less than half the effort to complete the activity 2 The helper provides more than half the effort to complete the activity 1 Dependent. The helper does all the effort to complete an activity 7 Patient refused to complete or attempt activity 9 The patient did not perform the activity before the current illness or injury 88 Not attempted due to Medical conditions or safety concerns Transfers (B, C, W/C) (FIM): 6 Scootin Sit to/from Stand: 6 Weight Bearing Right Lower Extremity: Right Weight Bearing/Tolerated Gait Training Gait (FIM): 6 Distance: 380' Gait Level of Assist: 6 Gait Assistive Device: FWW steady, reciprocal pattern Exercises Seated Therapy Exercises: Ankle pumps, Long arc quads, Hip flexion Seated Reps: 25 (bilaterally AROM) Assessment Patient remains up in recliner with needs met and polar pack in place. PT to increase activity as tolerated by patient. PT Short Term Goals Short Term Goals Time Frame: Aug 30, 2018 Transfers (B,C,W/C) (FIM): 5 Gait (FIM): 5 Gait Distance Comment: 150' Gait Level of Assist: 5 Gait Assistive Device: FWW PT Plan Treatment/Plan Treatment Plan: Continue Plan of Care Treatment Plan: Bed Mobility, Education, Functional Activity Devika, Functional Strength, Gait, Safety, Therapeutic Exercise, Transfers Treatment Duration: Aug 30, 2018 Frequency: 11 times per week Estimated Hrs Per Day: .25 hour per day (15-30') Patient and/or Family Agrees t: Yes Time/GCodes Time In: 835 Time Out: 850 Total Billed Treatment Time: 15 Total Billed Treatment 1 visit FA 15 min AKIT PENA PT Aug 24, 2018 09:12
--- NOTE | 2018-08-24 09:32 | NUR ---
IRF Evaluation: Order received to evaluate patient for the ARU. Chart reviewed and it appears the patient is ambulating (380ft, FWW) and transferring with modified independence; therefore, the patient does not require intensive therapies at this time. Upon reviewing the OT note the patient does have room for improvement with ADL's; however, it is required for admission that patient's possess a need for more than one therapy discipline. CM/SS notified. Thank you for this referral.
[2018-08-24] MEDS: APIXABAN 5 MG (ELIQUIS) TABLET PO SCH ×2 (09:57→20:14)
--- NOTE | 2018-08-24 10:18 | Progress Note-Hospitalist ---
Subjective HPI/CC On Admission Date Seen by Provider: Aug 24, 2018 Time Seen by Provider: 09:30 Subjective/Events-last exam Pt doing well today Urinating well Home medications tolerated No more nausea Plan is to go home with her at [place] Sugars are very elevated so will increase insulin Hgb noted Review of Systems Musculoskeletal: leg pain Objective Exam Vital Signs Vital Signs Date Time Temp Pulse Resp B/P (MAP) Pulse Ox O2 Delivery O2 Flow Rate FiO2 08/24/18 16:46 99.2 78 18 96 Room Air 08/24/18 12:00 157/63 (94) 08/23/18 16:52 2.00 Capillary Refill : General Appearance: No Apparent Distress, WD/WN HEENT: PERRL/EOMI, TMs Normal, Normal ENT Inspection, Pharynx Normal Neck: Full Range of Motion, Normal Inspection, Non Tender, Supple, Carotid Bruit Respiratory: Chest Non Tender, Lungs Clear, Normal Breath Sounds, No Accessory Muscle Use, No Respiratory Distress Cardiovascular: No Edema, No Gallop, No JVD, No Murmur, Normal Peripheral Pulses, Irregularly Irregular Gastrointestinal: Normal Bowel Sounds, No Organomegaly, No Pulsatile Mass, Non Tender, Soft Back: Normal Inspection, No CVA Tenderness, No Vertebral Tenderness Extremity: Normal Capillary Refill, Normal Inspection, Normal Range of Motion, Non Tender, No Calf Tenderness, No Pedal Edema, Other (right knee replacement surgery) Neurologic/Psychiatric: Alert, Oriented x3, No Motor/Sensory Deficits, Normal Mood/Affect Skin: Normal Color, Warm/Dry Lymphatic: No Adenopathy Results/Procedures Lab Laboratory Tests 08/24/18 05:30 Patient resulted labs reviewed. 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 room supervisor insulin use: with shipping room supervisor use Diabetes mellitus complication status: with unspecified complications Qualified Codes: E11.8 - Type 2 diabetes mellitus with unspecified complications; Z79.4 - research program intern (current) use of insulin (3) Atrial fibrillation Status: Chronic Qualifiers: Atrial fibrillation type: chronic Qualified Codes: I48.2 - Chronic atrial fibrillation (4) Anticoagulant prescribed Status: Chronic (5) OSTEOARTHRITIS RIGHT KNEE Status: Chronic (6) Hypertension Status: Chronic Qualifiers: Hypertension type: essential hypertension Qualified Codes: I10 - Essential (primary) hypertension HAETHER HOOKS DO Aug 24, 2018 10:18
[2018-08-24 12:00] VITALS: BP 157/63
--- NOTE | 2018-08-24 15:17 | Physical Therapy Daily Note ---
PT Daily Note-Current Subjective Agreeable to PT. Reports she plans to go home tomorrow. Pain Numeric Pain Scale: 5-Moderate Pain Location: Right Location Body Site: Knee Pain Description: Ache (sore) Mental Status Patient Orientation: Person, Place, Time, Situation Transfers Therapy Code Descriptions/Definitions Functional [place] Measure: 0=Not Assessed/NA 4=Minimal Assistance 1=Total Assistance 5=Supervision or Setup 2=Maximal Assistance 6=Modified [place] 3=Moderate Assistance 7=Complete [place] Therapy Quality Codes: 6 Independent with activity with or without an assistive device 5 Patient requires set up or clean up by helper. Patient completes activity by themselves 4 Supervision or touching assist (CGA). [place] provide cues , steadying assist 3 The helper provides less than half the effort to complete the activity 2 The helper provides more than half the effort to complete the activity 1 Dependent. The helper does all the effort to complete an activity 7 Patient refused to complete or attempt activity 9 The patient did not perform the activity before the current illness or injury 88 Not attempted due to Medical conditions or safety concerns Transfers (B, C, W/C) (FIM): 5 Supine to/from Sit: 5 Sit to/from Stand: 5 SBA with all transfers; takes extra time to complete task. Weight Bearing Right Lower Extremity: Right Weight Bearing/Tolerated Gait Training Gait (FIM): 5 Distance (FIM): 3=150 ft Distance: 200 ft Gait Level of Assist: 5 Gait Assistive Device: FWW step through gait pattern with heel strike and toe off; walks with both feet in ER Exercises Supine Ex: Ankle pumps, Pelvic tilt, Heel Slides, Short Arc Quads, Straight leg raise Supine Reps: 10 Treatments CPM applied Assessment Current Status: Good Progress PT making good functional gains. PT Short Term Goals Short Term Goals Time Frame: Aug 30, 2018 Transfers (B,C,W/C) (FIM): 5 Gait (FIM): 5 Gait Distance Comment: 150' Gait Level of Assist: 5 Gait Assistive Device: FWW PT Plan Problem List Problem List: Activity Tolerance, Functional Strength, Safety Treatment/Plan Treatment Plan: Continue Plan of Care Treatment Plan: Bed Mobility, Education, Functional Activity Devika, Functional Strength, Gait, Safety, Therapeutic Exercise, Transfers Treatment Duration: Aug 30, 2018 Frequency: 11 times per week Estimated Hrs Per Day: .25 hour per day (15-30') Patient and/or Family Agrees t: Yes Safety Risks/Education Patient Education: Gait Training Teaching Recipient: Patient Teaching Methods: Discussion Response to Teaching: Return Demonstration Discharge Recommendations Plan Stair training next visit. Time/GCodes Time In: 1315 Time Out: 1345 Total Billed Treatment Time: 30 Total Billed Treatment visit EX 15 GT 15 DEVEN HERNANDEZ PT Aug 24, 2018 15:17
[2018-08-24] MEDS: INSULIN GLARGINE SQ SCH ×2 (19:28→20:16)
[2018-08-24 20:00] VITALS: BP_SYST 153; BP_SYST 173; BP_DIAS 72
[2018-08-24] MEDS: PANTOPRAZOLE 40 MG (PROTONIX) TAB PO SCH (20:14)
[2018-08-25] VITALS: BP 150/67
[2018-08-25 04:47] VITALS: BP 175/76
[2018-08-25 06:04] LABS: BASOPHILS % (AUTO) 0 % (0-10); EOSINOPHILS # (AUTO) 0.2 10^3/uL (0.0-0.3); EOSINOPHILS % (AUTO) 2 % (0-10); HEMATOCRIT 27 % (35-52); HEMOGLOBIN 8.6 G/DL (11.5-16.0); LYMPHOCYTES # (AUTO) 1.3 X 10^3 (1.0-4.0); LYMPHOCYTES % (AUTO) 12 % (12-44); MEAN CORPUSCULAR HEMOGLOBIN 28 PG (25-34); MEAN CORPUSCULAR HGB CONC 32 G/DL (32-36); MEAN CORPUSCULAR VOLUME 88 FL (80-99); MEAN PLATELET VOLUME 10.6 FL (7.4-10.4); MONOCYTES # (AUTO) 1.1 X 10^3 (0.0-1.0); MONOCYTES % (AUTO) 11 % (0-12); NEUTROPHILS % (AUTO) 75 % (42-75); PLATELET COUNT 236 10^3/uL (130-400); RED CELL DISTRIBUTION WIDTH 15.4 % (10.0-14.5); WHITE BLOOD COUNT 10.6 10^3/uL (4.3-11.0)
[2018-08-25] MEDS: MULTIVIT W/MINERALS TAB (THERAGRAN M) PO SCH (06:21)
[2018-08-25] MEDS: inSUlin ASPART (NovoLOG) 1 UNIT/0.01 ML (CHARGE PER UNIT) SC SCH ×2 (06:21→11:39)
[2018-08-25] MEDS: LEVOTHYROXINE 100 MCG (LEVOTHROID) TAB PO SCH (06:21)
[2018-08-25 06:27] LABS: ALANINE AMINOTRANSFERASE 21 U/L (0-55); ALBUMIN 3.3 GM/DL (3.2-4.5); ALKALINE PHOSPHATASE 98 U/L (40-136); BILIRUBIN,TOTAL 0.6 MG/DL (0.1-1.0); BUN/CREATININE RATIO 20; CALCIUM 8.7 MG/DL (8.5-10.1); CARBON DIOXIDE 19 MMOL/L (21-32); CHLORIDE 107 MMOL/L (98-107); CREATININE SERUM 0.71 MG/DL (0.60-1.30); GFR ESTIMATED > 60; GLUCOSE 252 MG/DL (70-105); POTASSIUM 4.5 MMOL/L (3.6-5.0); SODIUM 138 MMOL/L (135-145); TOTAL PROTEIN 6.4 GM/DL (6.4-8.2)
[2018-08-25] MEDS ORDERED: morphine INJ 4 MG/ML 1 ML (VIAL/SYRINGE) IVP PRN (07:00)
--- NOTE | 2018-08-25 07:03 | Progress Note-Standard ---
Standard Progress Note Progress Notes/Assess & Plan Date Seen by a Provider: Aug 25, 2018 Time Seen by a Provider: 07:01 Progress/Assessment & Plan post op check No complaints radiographs--HW well positioned. No fractures RLE--1 plus DP pulse with brisk cap refill. Sensation intact to light touch throughout. Intact DF and PF of toes and ankle s/p RTKA mobilize as able Final Diagnosis no complaints. would like to go home. states that she hasn't been receiving the amount of insulin she normally gives herself Vital Signs Date Time Temp Pulse Resp B/P (MAP) Pulse Ox O2 Delivery O2 Flow Rate FiO2 08/25/18 04:47 98.3 75 18 175/76 (109) 95 Room Air 08/25/18 01:00 77 08/25/18 00:00 98.8 68 18 150/67 (94) 93 Room Air 08/24/18 21:00 Room Air 08/24/18 20:00 99.4 77 18 153/72 (99) 92 Room Air 08/24/18 19:00 80 08/24/18 16:46 99.2 78 18 96 Room Air 08/24/18 13:20 100.4 08/24/18 13:00 81 08/24/18 12:00 100.4 72 18 157/63 (94) 94 Room Air 08/24/18 09:00 Room Air 08/24/18 08:21 99.7 83 18 169/70 (103) 92 Room Air I & O 08/25/18 07:00 Intake Total 4000 ml Output Total 550 ml Balance 3450 ml Laboratory Tests Test 08/24/18 09:38 08/24/18 11:12 08/24/18 16:23 08/24/18 20:02 Range/Units Glucometer 378 H 385 H 385 H 391 H 70-110 MG/DL Test 08/25/18 05:20 08/25/18 05:50 Range/Units Glucometer 221 H 70-110 MG/DL White Blood Count 10.6 4.3-11.0 10^3/uL Red Blood Count 3.11 L 4.35-5.85 10^6/uL Hemoglobin 8.6 L 11.5-16.0 G/DL Hematocrit 27 L 35-52 % Mean Corpuscular Volume 88 80-99 FL Mean Corpuscular Hemoglobin 28 25-34 PG Mean Corpuscular Hemoglobin Concent 32 32-36 G/DL Red Cell Distribution Width 15.4 H 10.0-14.5 % Platelet Count 236 130-400 10^3/uL Mean Platelet Volume 10.6 H 7.4-10.4 FL Neutrophils (%) (Auto) 75 42-75 % Lymphocytes (%) (Auto) 12 12-44 % Monocytes (%) (Auto) 11 0-12 % Eosinophils (%) (Auto) 2 0-10 % Basophils (%) (Auto) 0 0-10 % Neutrophils # (Auto) 8.0 H 1.8-7.8 X 10^3 Lymphocytes # (Auto) 1.3 1.0-4.0 X 10^3 Monocytes # (Auto) 1.1 H 0.0-1.0 X 10^3 Eosinophils # (Auto) 0.2 0.0-0.3 10^3/uL Basophils # (Auto) 0.0 0.0-0.1 10^3/uL Sodium Level 138 135-145 MMOL/L Potassium Level 4.5 3.6-5.0 MMOL/L Chloride Level 107 98-107 MMOL/L Carbon Dioxide Level 19 L 21-32 MMOL/L Anion Gap 12 5-14 MMOL/L Blood Urea Nitrogen 14 7-18 MG/DL Creatinine 0.71 0.60-1.30 MG/DL Estimat Glomerular Filtration Rate > 60 BUN/Creatinine Ratio 20 Glucose Level 252 H 70-105 MG/DL Calcium Level 8.7 8.5-10.1 MG/DL Corrected Calcium 9.3 8.5-10.1 MG/DL Total Bilirubin 0.6 0.1-1.0 MG/DL Aspartate Amino Transf (AST/SGOT) 20 5-34 U/L Alanine Aminotransferase (ALT/SGPT) 21 0-55 U/L Alkaline Phosphatase 98 40-136 U/L Total Protein 6.4 6.4-8.2 GM/DL Albumin 3.3 3.2-4.5 GM/DL RLE--incision clean and dry. No calf tenderness.Neg Karolina's s/p RTKA PT today DC after PT if ok with hospitalist ROSALINA VALDES MD Aug 25, 2018 07:03
--- NOTE | 2018-08-25 07:58 | DISCHARGE SUMMARY ---
DATE OF SERVICE: DIAGNOSES: 1. Right knee primary osteoarthritis. 2. Atrial fibrillation. 3. Asthma. 4. Diabetes mellitus. PROCEDURE: Right total knee arthroplasty. SUMMARY: The patient is a 68-year-old female, who was admitted the day of the right total knee arthroplasty, which she underwent without complications. Postoperatively, she progressed well. At the time of discharge, her wound was clean and dry. She has no calf tenderness. Negative Homans sign. She was tolerating a diet well and tolerating pain with oral pain medication. CONDITION AT DISCHARGE: Good. DISCHARGE DIET: Diabetic. FOLLOWUP: Followup is in three weeks. Home physical therapy has been arranged. DISCHARGE MEDICATIONS: Home medications as well as Percocet as needed for pain. Job ID: [id number] DocumentID: [id number] Dictated Date: 08/24/2018 17:58:08 Algebra Teacher Date: 08/25/2018 07:57:29 Dictated By: ROSALINA VALDES MD
[2018-08-25 08:00] VITALS: BP 174/73
--- NOTE | 2018-08-25 08:55 | Progress Note-Hospitalist ---
Subjective HPI/CC On Admission Date Seen by Provider: Aug 25, 2018 Time Seen by Provider: 09:15 CC: s/p right knee replacement POD # 0 Dr Pagan uncomplicated HPI: HPI: This is a 68yoWF s/p uncomplicated right knee total knee replacement by Dr. Pagan who presents to room 413 in a stable fashion. Pain medication has been ordered. Pt maintains on CPM machine on the right leg and home medications ere reviewed and restarted. 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 Pt denies any other significant problems currently. Her family is at the bedside. She sees Dr. Dunlap on a regular basis for atrial fib. Subjective/Events-last exam Patient ready to go home Walker arranged Home health orders and Pain is controlled Ambulating with physical therapy Has no hesitation for discharge plans No BM yet but has medications at home that help her Review of Systems Musculoskeletal: leg pain Objective Exam Vital Signs Vital Signs Date Time Temp Pulse Resp B/P (MAP) Pulse Ox O2 Delivery O2 Flow Rate FiO2 08/25/18 08:10 Room Air 08/25/18 08:00 98.6 85 20 174/73 (106) 93 08/23/18 16:52 2.00 Capillary Refill : General Appearance: No Apparent Distress, WD/WN HEENT: PERRL/EOMI, TMs Normal, Normal ENT Inspection, Pharynx Normal Neck: Full Range of Motion, Normal Inspection, Non Tender, Supple, Carotid Bruit Respiratory: Chest Non Tender, Lungs Clear, Normal Breath Sounds, No Accessory Muscle Use, No Respiratory Distress Cardiovascular: No Edema, No Gallop, No JVD, No Murmur, Normal Peripheral Pulses, Irregularly Irregular Gastrointestinal: Normal Bowel Sounds, No Organomegaly, No Pulsatile Mass, Non Tender, Soft Back: Normal Inspection, No CVA Tenderness, No Vertebral Tenderness Extremity: Normal Capillary Refill, Normal Inspection, Normal Range of Motion, Non Tender, No Calf Tenderness, No Pedal Edema, Other (right knee replacement surgery) Neurologic/Psychiatric: Alert, Oriented x3, No Motor/Sensory Deficits, Normal Mood/Affect Skin: Normal Color, Warm/Dry Lymphatic: No Adenopathy Results/Procedures Lab Laboratory Tests 08/25/18 05:50 Patient resulted labs reviewed. 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 propellant charge loading insulin use: with supervisor propellant charge loading use Diabetes mellitus complication status: with unspecified complications Qualified Codes: E11.8 - Type 2 diabetes mellitus with unspecified complications; Z79.4 - water mechanic (current) use of insulin (3) Atrial fibrillation Status: Chronic Qualifiers: Atrial fibrillation type: chronic Qualified Codes: I48.2 - Chronic atrial fibrillation (4) Anticoagulant prescribed Status: Chronic (5) OSTEOARTHRITIS RIGHT KNEE Status: Chronic (6) Hypertension Status: Chronic Qualifiers: Hypertension type: essential hypertension Qualified Codes: I10 - Essential (primary) hypertension HEATHER HOOKS DO Aug 25, 2018 08:55
--- NOTE | 2018-08-25 09:06 | Physical Therapy Daily Note ---
PT Daily Note-Current Subjective Pt sitting up in recliner upon arrival. Pt had already seen Dr Pagan and will be D/C today. Pt wanted to go over stairs since she will have stairs at home. Pain Numeric Pain Scale: 4 Location: Right, Incisional Location Body Site: Knee Pain Description: Ache, Tightness Mental Status Patient Orientation: Person, Place, Time, Situation Attachments: IV Transfers Therapy Code Descriptions/Definitions Functional [place] Measure: 0=Not Assessed/NA 4=Minimal Assistance 1=Total Assistance 5=Supervision or Setup 2=Maximal Assistance 6=Modified [place] 3=Moderate Assistance 7=Complete [place] Therapy Quality Codes: 6 Independent with activity with or without an assistive device 5 Patient requires set up or clean up by helper. Patient completes activity by themselves 4 Supervision or touching assist (CGA). [place] provide cues , steadying assist 3 The helper provides less than half the effort to complete the activity 2 The helper provides more than half the effort to complete the activity 1 Dependent. The helper does all the effort to complete an activity 7 Patient refused to complete or attempt activity 9 The patient did not perform the activity before the current illness or injury 88 Not attempted due to Medical conditions or safety concerns Scootin Sit to/from Stand: 6 Weight Bearing Right Lower Extremity: Right Weight Bearing/Tolerated Gait Training Distance (FIM): 3=150 ft Distance: 500' Gait Level of Assist: 6 Gait Persons Needed: 1 Gait Assistive Device: FWW ELEVATED MOTORMAN assists with management of IV pole. Stair Training Stair Training: Handrails/: 1 handrail #of Steps: 4 Stairs: Pattern: Step to Level of Assist: 4 Pt uses 1 hand rail and RETAIL LOAN ORIGINATOR on descent of stairs, reporting will have cane or SP support at home. Treatments Pt transfers from Seated Surface and ambulates in hallway to elevator to Therapy Floor. Pt ambulates stairs before ambulating back to room to rest. ELEVATED MOTORMAN gives info for polar pack and that pt can take it with her, reviewing use of ice for swelling. Pt has all needs met at end of tx. Assessment Current Status: Good Progress Pt reports some discomfort in knees with stairs but when giving VC on sequencing , pt completes well. PT Short Term Goals Short Term Goals Time Frame: Aug 30, 2018 Transfers (B,C,W/C) (FIM): 5 Gait (FIM): 5 Gait Distance Comment: 150' Gait Level of Assist: 5 Gait Assistive Device: FWW PT Plan Problem List Problem List: Activity Tolerance Treatment/Plan Treatment Plan: Continue Plan of Care Treatment Plan: Bed Mobility, Education, Functional Activity Devika, Functional Strength, Gait, Safety, Therapeutic Exercise, Transfers Treatment Duration: Aug 30, 2018 Frequency: 11 times per week Estimated Hrs Per Day: .25 hour per day (15-30') Patient and/or Family Agrees t: Yes Safety Risks/Education Patient Education: Gait Training, Steps, Reviewed Use of Ice, Correct Positioning, Safety Issues Teaching Recipient: Patient Teaching Methods: Discussion Response to Teaching: Verbalize Understanding Time/GCodes Time In: 830 Time Out: 900 Total Billed Treatment Time: 30 Total Billed Treatment 1, GT (20m) & FA (10m) G Codes Necessary: STEFANIA Power ELEVATED MOTORMAN Aug 25, 2018 09:06
[2018-08-25] MEDS: cloNIDine 0.2 MG (CATAPRES) TAB PO SCH (09:23)
[2018-08-25] MEDS: LORATADINE (CLARITIN) 10 MG TAB PO SCH (09:23)
[2018-08-25] MEDS: PANTOPRAZOLE 40 MG (PROTONIX) TAB PO SCH (09:23)
[2018-08-25] MEDS: SENNA W/DOCUSATE (SENOKOT S) TABLET PO SCH (09:23)
[2018-08-25] MEDS: DILTIAZEM 300 MG (CARDIZEM CD) CAP PO SCH (09:24)
[2018-08-25] MEDS: FLECAINIDE 100 MG (TAMBOCOR) TAB PO SCH (09:24)
[2018-08-25] MEDS: doxAzosin 2 MG (CARDURA) TAB PO SCH (09:24)
[2018-08-25] MEDS: ASPIRIN E.C. 81 MG (ECOTRIN) TAB PO SCH ×2 (09:24→09:28)
[2018-08-25] MEDS: ENALAPRIL 10 MG (VASOTEC) TAB PO SCH (09:24)
[2018-08-25] MEDS: MONTELUKAST 10 MG (SINGULAIR) TAB PO SCH (09:25)
[2018-08-25] MEDS: APIXABAN 5 MG (ELIQUIS) TABLET PO SCH (09:25)
[2018-08-25] MEDS: oxyCODONE/APAP 5/325MG (PERCOCET 5) TABLET PO PRN (10:17)
--- NOTE | 2018-08-25 10:49 | NUR ---
CM DISCHARGE PLANNING: Patient is discharging to home today with [facility] for Physical Therapy. She also needed a FWW. SAADIA HOANG had choice forms signed et placed on the chart that Jo wanted to [facility]. Script for FWW faxed. Patient is willing to picking supervisor her walker vs having it delivered here to the hospital. She does not want to delay her discharge so if she needs to picking supervisor then she will. No further needs noted at this time.
--- NOTE | 2018-08-25 11:25 | Occupational Ther Daily Note ---
OT Current Status-Daily Note Subjective pt lying in bed upon OT Arrival. pt agreed to OT TX session with focus on increasing independence with ADLS with use of AE. pt stated "I love this equipment, it makes life easier" Mental Status/Objective Patient Orientation: Normal For Age Therapy Code Descriptions/Definitions Functional [place] Measure: 0=Not Assessed/NA 4=Minimal Assistance 1=Total Assistance 5=Supervision or Setup 2=Maximal Assistance 6=Modified [place] 3=Moderate Assistance 7=Complete [place] Attachments: IV ADL-Treatment Grooming (FIM): 6 (standing at sink to perform hand washing) Lower Body Dressing (FIM): 5 (pt education on AE to increase independence with LB dressing. pt demo ability to use AE and mary anne/ doff Yury socks X4 ) Toileting (FIM): 5 (pt education on standing to perform hygine secondary to increase RLE pain when twisting. pt demo trained technique with no safety concerns. ) Toilet/Commode Transfer (FIM): 6 (use of RW and GB ) Education OT Patient Education: Energy conservation, Modified ADL techniques, Transfer techniques, Use of adapted equipment Teaching Recipient: Patient Teaching Methods: Demonstration, Discussion Response to Teaching: Verbalize Understanding, Return Demonstration OT Short Term Goals Short Term Goals Grooming(FIM): 5 (standing at sink) Bathing(FIM): 5 Lower Body Dressing(FIM): 5 Transfers (B,C,W/C) (FIM): 5 Toilet/Commode Transfer(FIM): 5 1=Demonstrate adherence to instructed precautions during ADL tasks. 2=Patient will verbalize/demonstrate understanding of assistive devices/ modifications for ADL. 3=Patient will improve strength/tolerance for activity to enable patient to perform ADL's. OT Fci Goals Tipple Worker Goals Grooming(FIM): 7 Bathing(FIM): 6 (use of AE PRN) Lower Body Dressing(FIM): 6 (use of AE PRN) Toilet/Commode Transfer(FIM): 6 1=Demonstrate adherence to instructed precautions during ADL tasks. 2=Patient will verbalize/demonstrate understanding of assistive devices/ modifications for ADL. 3=Patient will improve strength/tolerance for activity to enable patient to perform ADL's. OT Education/Plan Problem List/Assessment pt presents continues to present with functional limitations affecting areas of ADLS and functional transfers with deficits in: limited activity tolerance, decrease LB dressing. pt would benefit from OT services to increase independence with ADLs/ functional transfers and to address above mention deficits. anticipated d/c home Discharge Recommendations Plan/Recommendations: Continue POC Therapy D/C Recommendations: Home w/ Family Support Equpiment Recommendations-D/C: Manager Material, Sock Aide, Dressing Stick Target Placement home Patient/Family Goals "to be more independent" Treatment Plan/Plan of Care Treatment,Training & Education: Yes Patient would benefit from OT for education, treatment and training to promote independence in ADL's, mobility, safety and/or upper extremity function for ADL' s. Plan of Care: ADL Retraining, Functional Mobility, UE Funct Exercise/Act Treatment Duration: Aug 31, 2018 Frequency: 5 times per week Estimated Hrs Per Day: .5 hour per day Agreement: Yes Rehab Potential: Good Time/GCodes Start Time: 08:04 Stop Time: 09:30 Billed Treatment Time ADL 2 unites, 26 minutes OSBALDO RAMOS OT Aug 25, 2018 11:25
== END 2018-08-25 11:10 | disposition home health service (06) | DRG 470 ==
LOC: 4TH 05:46 → SURG 05:47 → 4TH 11:25
PROVIDERS: ADMIT Orthopaedic Surgery; ATTEND Orthopaedic Surgery
PROC: 0SRC0J9 Replacement of Right Knee Joint with Synthetic Substitute, Cemented, Open Approach (ICD-10-PCS; principal; 2018-08-23 08:31)
DX: M17.11 Unilateral primary osteoarthritis, right knee (principal); D62 Acute posthemorrhagic anemia; I48.0 Paroxysmal atrial fibrillation; J45.909 Unspecified asthma, uncomplicated; E11.65 Type 2 diabetes mellitus with hyperglycemia; I10 Essential (primary) hypertension; E78.5 Hyperlipidemia, unspecified; G47.33 Obstructive sleep apnea (adult) (pediatric); K21.9 Gastro-esophageal reflux disease without esophagitis; E03.9 Hypothyroidism, unspecified; E66.9 Obesity, unspecified; I65.23 Occlusion and stenosis of bilateral carotid arteries; R11.0 Nausea; Z68.37 Body mass index [BMI] 37.0-37.9, adult; Z79.4 Long term (current) use of insulin; Z79.01 Long term (current) use of anticoagulants
CPT/HCPCS: 36415; 73560; 80053; 82962; 85025; 86850; 86900; 86901; 94664

== ENCOUNTER → 2018-10-23 | Outpatient (CLI) | payer MEDICARE, OTHER ==
[~2018-10-23] MED LIST changes: +OXYC1TAB87 PO
== END ==
LOC: LAB 14:20
PROVIDERS: ATTEND Student in an Organized Health Care Education/Training Program
DX: E10.65 Type 1 diabetes mellitus with hyperglycemia (principal); I10 Essential (primary) hypertension; E78.2 Mixed hyperlipidemia; E03.9 Hypothyroidism, unspecified
CPT/HCPCS: 36415; 83036

== ENCOUNTER → 2019-01-30 | Outpatient (CLI) | payer MEDICARE, OTHER ==
[~2019-01-30] MED LIST changes: -OMEP20CA12 PO; +OMEP20CA13 PO
[2019-01-30 12:34] LABS: BUN/CREATININE RATIO 18; CALCIUM 9.5 MG/DL (8.5-10.1); CARBON DIOXIDE 26 MMOL/L (21-32); CHLORIDE 105 MMOL/L (98-107); CREATININE SERUM 0.74 MG/DL (0.60-1.30); GFR ESTIMATED > 60; GLUCOSE 185 MG/DL (70-105); POTASSIUM 4.4 MMOL/L (3.6-5.0); SODIUM 141 MMOL/L (135-145)
== END ==
LOC: LAB 11:38
PROVIDERS: ATTEND Physician Assistant Medical
DX: E10.9 Type 1 diabetes mellitus without complications (principal)
CPT/HCPCS: 36415; 80048; 83036

== ENCOUNTER → 2019-05-17 | Outpatient (CLI) | payer MEDICARE, OTHER ==
[~2019-05-17] MED LIST changes: +OMEP-280 PO; -OMEP20CA13 PO; +OMEP40CA27 PO; -OMEP40CA36 PO; +TRM50T PO
== END | disposition home or self-care (01) ==
LOC: LAB 08:55
PROVIDERS: ATTEND Student in an Organized Health Care Education/Training Program
DX: E10.65 Type 1 diabetes mellitus with hyperglycemia (principal); I10 Essential (primary) hypertension; E78.2 Mixed hyperlipidemia; E03.9 Hypothyroidism, unspecified
CPT/HCPCS: 36415; 80061; 82043; 83036; 84443

== ENCOUNTER 2019-06-27 09:52 | Outpatient (CLI) | payer MEDICARE, OTHER ==
[~2019-06-27] VITALS: Ht 165 cm; Wt 105.3 kg
[2019-06-27] MEDS ORDERED: INSU300I SQ (10:14)
[2019-06-27 10:18] VITALS: BP 193/66
[2019-06-27 10:56] LABS: BASOPHILS % (AUTO) 0 % (0-10); BILIRUBIN,URINE NEGATIVE (NEGATIVE); CLARITY,URINE CLEAR; COLOR,URINE YELLOW; EOSINOPHILS # (AUTO) 0.2 10^3/uL (0.0-0.3); EOSINOPHILS % (AUTO) 3 % (0-10); GLUCOSE, URINE (UA) TRACE (NEGATIVE); HEMATOCRIT 34 % (35-52); HEMOGLOBIN 10.2 G/DL (11.5-16.0); KETONES,URINE NEGATIVE (NEGATIVE); LEUKOCYTE ESTERASE ,URINE NEGATIVE (NEGATIVE); LYMPHOCYTES # (AUTO) 0.9 X 10^3 (1.0-4.0); LYMPHOCYTES % (AUTO) 13 % (12-44); MEAN CORPUSCULAR HGB CONC 30 G/DL (32-36); MEAN CORPUSCULAR VOLUME 87 FL (80-99); MEAN PLATELET VOLUME 10.5 FL (7.4-10.4); MONOCYTES # (AUTO) 0.5 X 10^3 (0.0-1.0); MONOCYTES % (AUTO) 8 % (0-12); NEUTROPHILS # (AUTO) 5.3 X 10^3 (1.8-7.8); NEUTROPHILS % (AUTO) 76 % (42-75); NITRITE,URINE NEGATIVE (NEGATIVE); PLATELET COUNT 299 10^3/uL (130-400); PROTEIN,URINE NEGATIVE (NEGATIVE)
[2019-06-27 10:57] LABS: MEAN CORPUSCULAR HEMOGLOBIN 26 PG (25-34)
[2019-06-27 11:05] LABS: INR 1.3 (0.8-1.4); PROTHROMBIN TIME PATIENT 16.3 SEC (12.2-14.7)
[2019-06-27 11:09] LABS: BACTERIA,URINE TRACE /HPF; RBC,URINE 0-2 /HPF; SQUAMOUS EPITHELIAL CELL,UR 0-2 /HPF
[2019-06-27 11:17] LABS: ALANINE AMINOTRANSFERASE 14 U/L (0-55); ALBUMIN 4.1 GM/DL (3.2-4.5); ALKALINE PHOSPHATASE 127 U/L (40-136); BILIRUBIN,TOTAL 0.5 MG/DL (0.1-1.0); BUN/CREATININE RATIO 19; CALCIUM 9.5 MG/DL (8.5-10.1); CARBON DIOXIDE 27 MMOL/L (21-32); CHLORIDE 102 MMOL/L (98-107); CREATININE SERUM 0.75 MG/DL (0.60-1.30); GFR ESTIMATED > 60; GLUCOSE 229 MG/DL (70-105); POTASSIUM 4.7 MMOL/L (3.6-5.0); SODIUM 137 MMOL/L (135-145)
[2019-06-27 11:33] LABS: ERYTHROCYTE SEDIMENTATION RATE 69 MM/HR (0-30)
== END 2019-06-27 13:26 ==
LOC: PREOP 09:52
PROVIDERS: ATTEND Orthopaedic Surgery
DX: Z01.812 Encounter for preprocedural laboratory examination (principal); Z11.2 Encounter for screening for other bacterial diseases; M17.12 Unilateral primary osteoarthritis, left knee; R53.83 Other fatigue
CPT/HCPCS: 36415; 80053; 81000; 85025; 85610; 85652; 86850; 86900; 86901; 87081

== ENCOUNTER 2019-07-04 05:56 | Inpatient (IN) | payer MEDICARE, OTHER ==
--- NOTE | 2019-06-25 07:23 | HISTORY AND PHYSICAL ---
DATE OF SERVICE: DATE OF ADMISSION: 07/04/2019. This will be for inpatient admission on 07/04/2019 for left total knee arthroplasty. The patient will require regular inpatient admission due to comorbidities, pain management issues and need for physical therapy. HISTORY OF PRESENT ILLNESS: The patient is a 69-year-old female with progressively worsening left knee pain. Radiographs reveal severe tricompartmental osteoarthritis. She has undergone treatment with injections, arthroscopy, anti-inflammatories, activity modifications, but reports progressive functional impairment. Because of this, the patient elected to proceed with surgical intervention. REVIEW OF SYSTEMS: No chest pain, no shortness of breath, no dysuria. PAST MEDICAL HISTORY: Atrial fibrillation, asthma, diabetes mellitus. PAST SURGICAL HISTORY: Right breast cyst excision, hysterectomy, bilateral knee arthroscopy, right total knee arthroplasty. FAMILY HISTORY: Significant for asthma, cancer. PRIMARY CARE PROVIDER: Dr. Islas. MEDICATIONS: Terbinafine, omeprazole, montelukast, cetirizine, Humalog, Ventolin, lutein, clonidine, levothyroxine, Lantus, pravastatin, flecainide, enalapril, doxazosin, diltiazem, Pradaxa, tramadol, cyclobenzaprine. ALLERGIES: No known drug allergies. SOCIAL HISTORY: The patient denies alcohol, tobacco use. PHYSICAL EXAMINATION: GENERAL: The patient is well developed, well-nourished, in no acute distress. HEENT: Normocephalic, atraumatic. Pupils are equal, round, reactive to light. Oropharynx is clear. NECK: Supple, no lymphadenopathy. LUNGS: Clear to auscultation bilaterally. HEART: Regular rate and rhythm. ABDOMEN: Soft, nontender, nondistended. EXTREMITIES: The left knee demonstrates varus alignment. She ambulates with an antalgic gait. Range of motion is 0/30/115. There is no varus valgus laxity. Negative anterior and posterior drawer. She has marked patellofemoral crepitus and tenderness along her medial femoral condyle. IMPRESSION: Severe left knee osteoarthritis, unresponsive to conservative measures. PLAN: Left total knee arthroplasty. The risks, benefits, options, ramifications and recovery have been discussed at length with the patient. She understands and wishes to proceed. Job ID: [id number] DocumentID: [id number] Dictated Date: 06/20/2019 12:22:40 Secret Code Expert Date: 06/20/2019 12:58:30 Dictated By: ROSALINA VALDES MD
[~2019-07-04] VITALS: Ht 165 cm; Wt 105.3 kg
[2019-07-04] VITALS (14 sets, daily range): BP systolic 125–199; BP diastolic 44–70
[~2019-07-04 05:56] MED LIST changes: +INSU300I SQ
[2019-07-04] MEDS ORDERED: CEFUROXIME INJECTION 1,500 MG in WATER (STERILE) FOR INJECTION 15 ML IV ONE (06:15)
[2019-07-04] MEDS ORDERED: RT-ALBUTEROL SULF 2.5 MG/3 ML PRE-MIX VIAL ONE (06:35)
[2019-07-04] MEDS ORDERED: RT-ALBUTEROL SULF 2.5 MG/3 ML PRE-MIX VIAL INH STA (06:36)
[2019-07-04] MEDS ORDERED: LIDOCAINE PF 2% 5 ML (XYLOCAINE) VIAL ONE ×2 (06:38→08:18)
[2019-07-04] MEDS ORDERED: fentaNYL INJECTION 100 MCG/2 ML AMP ONE (06:38)
[2019-07-04] MEDS ORDERED: SEVOFLURANE (ULTANE) 15 ML INHAL SOLN ONE ×4 (06:38→09:00)
[2019-07-04] MEDS ORDERED: BUPIVACAINE 0.25% 30 ML (SENSORCAINE) VIAL ONE (06:38)
[2019-07-04] MEDS ORDERED: MIDAZOLAM 2 MG/2 ML (VERSED) VIAL ONE (06:38)
[2019-07-04] MEDS ORDERED: ONDANSETRON 4 MG/2 ML (SDV) Z0FRAN ONE ×2 (06:38→06:39)
[2019-07-04] MEDS ORDERED: FAMOTIDINE 20MG/2ML IV (PEPCID) ONE (06:39)
[2019-07-04] MEDS ORDERED: FAMOTIDINE 20MG/2ML IV (PEPCID) IV ONE (06:45)
[2019-07-04] MEDS ORDERED: ONDANSETRON 4 MG/2 ML (SDV) Z0FRAN IV ONE (06:45)
[2019-07-04] MEDS: LACTATED RINGERS 1,000 ML IV PRN ×2 (06:48→07:30)
[2019-07-04] MEDS ORDERED: proPOfol 200 MG/20 ML (DIPRIVAN) VIAL IV ONE (07:04)
--- NOTE | 2019-07-04 07:25 | Progress Note-Pre Operative ---
Pre-Operative Progress Note H&P Reviewed The H&P was reviewed, patient examined and no changes noted. Date Seen by Provider: Jul 04, 2019 Time Seen by Provider: 07:15 Date H&P Reviewed: Jul 04, 2019 Time H&P Reviewed: 07:11 Pre-Operative Diagnosis: left knee primary osteoarthritis ROSALINA VALDES MD Jul 04, 2019 07:25
--- NOTE | 2019-07-04 07:26 | Progress Note-Post Operative ---
Post-Operative Progess Note Surgeon (s)/Chair Post Machine Operator (s) Surgeon ROSALINA VALDES MD Chair Post Machine Operator: Dillon Darnell Pre-Operative Diagnosis left knee primary osteoarthritis Post-Operative Diagnosis left knee primary osteoarthritis Procedure & Operative Findings Date of Procedure 07/04/19 Procedure Performed/Findings left total knee arthroplasty Anesthesia Type GETA Estimated Blood Loss Estimated blood loss (mL): minimal Specimens/Packing Specimens Removed none Packing: none ROSALINA VALDES MD Jul 04, 2019 07:26
[2019-07-04] MEDS ORDERED: OXYC1TAB87 PO (07:28)
[2019-07-04] MEDS ORDERED: diphenhydrAMINE 50 MG/ML INJ (BENADRYL) IVP PRN (07:30)
[2019-07-04] MEDS ORDERED: ACETAMINOPHEN 325 MG TABLET PO PRN (07:30)
[2019-07-04] MEDS ORDERED: morphine PCA 100 MG/100 ML BAG IV PRN (07:30)
[2019-07-04] MEDS ORDERED: INTRA-ARTICULAR IU ONE ×5 (07:30)
--- NOTE | 2019-07-04 07:31 | D/C HH Face to Face Order ---
D/C Face to Face Orders Reconcile Patient Problems Problems Reviewed?: Yes Instructions for Patient [facility], Patient Instructions/FollowUp: three weeks Physician to follow Patient: three weeks Discharge Diet for Home: ADA Diet Patient Data-Allergies,Ht & Wt Patient Allergies: Coded Allergies: insulin detemir (Verified Allergy, Intermediate, RASH, takes Lantus & Humalog at home, 08/23/18) red bumps at insertion site of injection Has received regular insulin & Novolog during previous hospitalization Height (Feet): 5 Height (Inches): 5.00 Weight (Pounds): 226 Weight (Ounces): 4.0 Home Health Need/Face to Face Date of Face to Face: Jul 04, 2019 Clinical Findings: Instability, Muscle weakness, Pain with ambulation, Unsteady gait I have seen Pt [id number]: Yes Discharged To: Home Diagnosis/Conditions: left total knee arthroplasty Patient is Homebound due to: [place] fall risk due to instabilty, Muscle weakness, Pain w/ambulation Homebound Status Due to the above stated illness, injury or surgical procedure (medical condition or diagnosis) and associated clinical findings, the patient is homebound because of his/her inability to leave home except with aid of a supportive device and/or person AND leaving the home requires a considerable and taxing effort or is medically contraindicated. Pt req the following assistanc: Walker Home Health Nursing Orders Home Health Services Order: Physical Therapy-Evaluate & Treat DC left knee kelly and steri strip 07/18/19 Therapy Orders Therapy Orders: Physical Therapy, PT to assess for OT Therapy Specific Orders: Eval assistive deivces, Teach enviro modifications/safety, Gait training, Increase strength/endurance, Provider maintenance therapy, Restore ROM Certify Stmt I certify that this patient is under my care and that I, a nurse practitioner or a physician; a fiscal assistant working with me, had a face to face encounter that - meets the physician face to face encounter requirements with this patient as dated. ROSALINA VALDES MD Jul 04, 2019 07:31
[2019-07-04] MEDS ORDERED: HYDROmorphone 2 MG/ML VIAL (DILAUDID) IV ONE (08:15)
[2019-07-04] MEDS ORDERED: morphine INJ 10 MG/ML 1ML (SYR OR VIAL) IVP ONE (08:15)
[2019-07-04] MEDS ORDERED: MEPERIDINE (DEMEROL) INJ 50 MG/ML IVP ONE (08:15)
[2019-07-04] MEDS ORDERED: ONDANSETRON 4 MG/2 ML (SDV) Z0FRAN IVP PRN (08:15)
[2019-07-04] MEDS ORDERED: fentaNYL INJECTION 100 MCG/2 ML AMP IVP ONE (08:15)
[2019-07-04] MEDS ORDERED: TRANEXAMIC ACID 100 MG/ML 10 ML INJECTION IV ONE (08:18)
[2019-07-04] MEDS ORDERED: ROCURONIUM 10 MG/ML 5 ML SYRINGE IV ONE (08:19)
[2019-07-04] MEDS ORDERED: morphine INJ 10 MG/ML 1ML (SYR OR VIAL) ONE (08:23)
[2019-07-04] MEDS ORDERED: GLYCOPYRROLATE 0.2 MG/ML (ROBINUL) 2 ML VIAL ONE (08:46)
[2019-07-04] MEDS ORDERED: NEOSTIGMINE 3 MG/3 ML VIAL ONE (08:46)
--- NOTE | 2019-07-04 09:48 | Diagnostic Imaging Report ---
EXAMINATION: Left knee in OR at 9:32 a.m. INDICATION: Postop FINDINGS: AP and lateral views of the knee were received from the OR. The prior exam of 05/13/2017 did note mild degenerative changes of the medial and lateral compartments. There did appear to be fairly severe narrowing of the patellofemoral space. On this study, there is now a total knee prosthesis in place. The prosthetic components seem to be in good position. There is no fracture or acute abnormality identified. There is gas in the soft tissues anterior to the knee joint and skin kelly are seen along the anterior aspect of the knee as well. IMPRESSION: Stable postoperative left knee. Dictated by: Dictated on workstation # [id number]
[2019-07-04] MEDS ORDERED: NS IV 1000 ML 1,000 ML ONE (10:19)
[2019-07-04] MEDS ORDERED: morphine PCA 100 MG/100 ML BAG IV ONE (10:19)
[2019-07-04] MEDS: NS IV 1000 ML 1,000 ML IV SCH ×2 (10:35→21:55)
--- NOTE | 2019-07-04 10:36 | Anesthesia-General Post-Op ---
General Patient Condition Mental Status/LOC: Same as Preop Cardiovascular: Satisfactory Nausea/Vomiting: Absent Respiratory: Satisfactory Pain: Controlled Complications: Absent Post Op Complications Complications None Follow Up Care/Instructions Patient Instructions None needed. Anesthesia/Patient Condition Patient Condition Patient is doing well, no complaints, stable vital signs, no apparent adverse anesthesia problems. No complications reported per nursing. KRISTIE ARRIETA CRNA Jul 04, 2019 10:36
--- NOTE | 2019-07-04 11:02 | Progress Note ---
Standard Progress Note Progress Notes/Assess & Plan Date Seen by a Provider: Jul 04, 2019 Time Seen by a Provider: 09:30 Progress/Assessment & Plan Post op check no complaints radiographs--HW well positioned without fracture LLE--sy pulses with brisk cap refill. Intact DF and PF of toes and ankle with intact sensation throughout s/p LTKA mobilize as able ROSALINA VALDES MD Jul 04, 2019 11:02
--- NOTE | 2019-07-04 13:21 | OPERATIVE REPORT ---
DATE OF SERVICE: 07/04/2019 PREOPERATIVE DIAGNOSIS: Left knee primary osteoarthritis. POSTOPERATIVE DIAGNOSIS: Left knee primary osteoarthritis. PROCEDURE: Left total knee arthroplasty. SURGEON: Levar Valdes MD. ARCHERY EQUIPMENT REPAIRER: Dillon Darnell, who assisted throughout the procedure and closed the incisions. ANESTHESIA: General endotracheal by Dillon Briggs CRNA. TOURNIQUET TIME: Approximately 68 minutes at 300 mmHg. ESTIMATED BLOOD LOSS: Minimal. DRAINS: None. COMPLICATIONS: None. POSTOPERATIVE PLAN: Routine protocol. MATERIALS: Microport cemented size 4 femur with cemented size 4 tibia with 10 mm insert and cemented size 29 patellar button. STATEMENT OF MEDICAL NECESSITY: The patient is a 69-year-old female with longstanding progressive left knee pain. Radiographs revealed severe tricompartmental osteoarthritis. He had undergone treatment with injections, arthroscopy, physical therapy and anti-inflammatories without relief. Due to functional impairment and failure to improve with conservative measures, the patient elected to proceed with surgical intervention. DESCRIPTION OF PROCEDURE: After risks and benefits of the procedure were discussed and questions were answered, an informed consent was signed and placed on chart, the operative site was confirmed and prepped in normal initialed by the surgeon. The patient was then transported to the operating room. After adequate levels of general endotracheal anesthetic were obtained, a timeout was called, confirming the operative site. The left lower extremity was prepped and draped in the usual sterile fashion with the leg elevated and knee flexed. Tourniquet was then inflated to 300 mmHg. Standard anterior approach was utilized. Hemostasis was obtained with cautery. A medial parapatellar arthrotomy was performed leaving 1 cm cuff on the patella for later reattachment. A portion of the fat pad was resected. The ACL was resected. Subperiosteal release was then carefully performed in the proximal medial tibia being careful to stay on the bony surface. Intramedullary guide was passed into the femur. The distal cutting block was placed and a distal cut was made. The femur was sized to a size 4. The 4-cutting block was placed parallel to the epicondylar axis. The cuts were made from posterior to anterior. A subperiosteal release was then carefully performed on the posterior distal femur, being careful to stay on the bony surface. Intramedullary guide was then passed into the tibia. The cutting block was placed and drop alberto transected the intermalleolar axis and the cut was made. The four-baseplate was placed and the drop alberto transected. The intermalleolar axis was prepared with the drill and keel punch. The femoral trial was placed and trochlear cut was made. The patella was then prepared using the freehand technique and resecting 10 mm off the undersurface. The peg guide was placed and peg holes were drilled. The trials were inserted with 10 mm insert and a 29 button. Full extension was easily obtained under 20 degrees of flexion with gravity was easily obtained. There was no anterior/posterior or medial/lateral laxity in the flexion or extension. The trials were removed. The joint was irrigated with pulse lavage. The periarticular block was placed in the posterior capsule, medial and lateral retinaculum, extensor mechanism and subcutaneous tissues. The bone ends were irrigated and dried. The tibial baseplate was cemented into position. Excessive cement was removed. Superior surface was irrigated and dried and the polyethylene insert was placed. Distal femur was irrigated and dried and the femoral prosthesis was cemented into position. Excessive cement was removed. The knee was brought out into full extension until the cement had cured. The undersurface of the patella was irrigated and dried and the patellar button was cemented into position. Once the cement had cured, the knee was taken through range of motion. Full extension was easily obtained and 120 degrees of flexion with gravity was easily obtained. There was no anterior/posterior or medial/lateral laxity in flexion or extension. The patella tracked well. Joint was further irrigated with pulse lavage. The arthrotomy was closed with #2 Tevdek in fashion. Knee was flexed. Patella tracked well and there was no undue tension noted at the repair site. Subcutaneous tissues were irrigated using a total of 6 liters throughout the procedure. A 0 Vicryl was used for the deep subcutaneous tissue, 2-0 Vicryl for the superficial subcutaneous tissue and kelly were used on skin. A soft dressing was applied. The tourniquet was deflated. The patient was transferred to the recovery room awake and in stable condition. Job ID: [id number] DocumentID: [id number] Dictated Date: 07/04/2019 09:20:17 Payment Collector Date: 07/04/2019 13:19:37 Dictated By: LEVAR VALDES MD
[2019-07-04] MEDS: inSUlin ASPART (NovoLOG) 1 UNIT/0.01 ML (CHARGE PER UNIT) SQ SCH ×3 (13:37→21:55)
[2019-07-04] MEDS: SENNA W/DOCUSATE (SENOKOT S) TABLET PO SCH ×2 (13:37→21:43)
[2019-07-04] MEDS: ONDANSETRON 4 MG/2 ML (SDV) Z0FRAN IVP PRN ×2 (13:39→20:20)
[2019-07-04] MEDS ORDERED: SCOPOLAMINE 1.5 MG (TRANSDERM-SCOP) PATCH TD NR (13:45)
--- NOTE | 2019-07-04 14:05 | Physical Therapy Evaluation ---
PT Evaluation-General Medical Diagnosis Admission Date Jul 04, 2019 at 05:56 Medical Diagnosis: Left TKA Onset Date: Jul 04, 2019 Therapy Diagnosis Therapy Diagnosis: impaired mobility, strength, endurance, ROM Height/Weight Height (Feet): 5 Height (Inches): 5.00 Weight (Pounds): 226 Weight (Ounces): 4.0 Precautions Precautions/Isolations: Fall Prevention, Standard Precautions Weight Bear Status Left Lower Extremity: Left Weight Bearing/Tolerated Referral Physician: Mann Reason for Referral: Evaluation/Treatment Medical History Pertinent Medical History: Atrial Fib, DM Additional Medical History Asthma, Past Surgical History: Right breast cyst excision, hysterectomy, bilateral knee arthroscopy, right total knee arthroplasty. Reviewed History: Yes Social History Home: Single Level Current Living Status: Spouse Entry Into Home: Stairs With Railing PT Steps Into Home: 3 PT Steps Inside Home: 0 Prior Prior Level of Function SCALE: Activities may be completed with or without assistive devices. 3-Wrgcumpxtg-dhikzvw completes the activity by him/herself with no assistance from a helper. 5-Set-up or Clean-up Assistance-helper sets up or cleans up; patient completes activity. Sumner assists only prior to or following the activity. 4-Supervision or Touching Assistance-helper provides verbal cues and/or touching /steadying and/or contact guard assistance as patient completes activity. Assistance may be provided throughout the activity or intermittently. 3-Partial/Moderate Assistance-helper does LESS THAN HALF the effort. Sumner lifts, holds or supports trunk or limbs, but provides less than half the effort. 2-Substantial/Maximal Assistance-helper does MORE THAN HALF the effort. Sumner lifts or holds trunk or limbs and provides more than half the effort. 7-Erevrwtyp-asqlov does ALL the effort. Patient does none of the effort to complete the activity. Or, the assistance of 2 or more helpers is required for the patient to complete the activity. If activity was not attempted, code reason: 7-Patient Refused. 9-Not Applicable-not attempted and the patient did not perform the activity before the current illness, exacerbation or injury. 10-Not Attempted due to Environmental Limitations-(lack of equipment, weather restraints, etc.). 88-Not Attempted due to Medical Conditions or Safety Concerns. Bed Mobility: 6 Transfers (B,C,W/C): 6 Gait: 6 Stairs: 6 Indoor Mobility (Ambulation): Independent Stairs: Independent Prior Device Use: Cane PT Evaluation-Current Subjective Patient is agreeable to therapy at this time. Pain Numeric Pain Scale: 5-Moderate Pain Location: Left Location Body Site: Knee Pt/Family Goals to be independent at home Objective Patient Orientation: Person Attachments: Oxygen, IV ROM/Strength ROM Lower Extremities Left knee approximately 80 degrees flexion and lacking 5 degrees of extension. Strength Lower Extremities Expected LLE weakness following surgery. Integumentary/Posture Integumentary See nursing notes. Bowel Incontinence: No Bladder Incontinence: No Sensory Vision: Functional Hearing: Functional Sensation Right Lower Extremit: Intact Sensation Left Lower Extremity: Intact Transfers Roll Left to Right (QC): 3 Sit to Lying (QC): 3 Lying to Sitting/Side of Bed(Q: 3 Gait Does the Patient Walk?: No and Walking Goal IS indicated Mode of Locomotion: Walk Anticipated Mode of Locomotion: Walk Wheelchair Training Does the Pt Use a Wheelchair?: No Balance Sitting Static: Fair Sitting Dynamic: Fair Treatment LLE exercises x10: ankle pumps, quad sets, heel slides, SLR, and SAQ. SLR and SAQ performed AAROM and all other AROM. Assessment/Needs Patient appeared groggy at start of session. During LLE exercises patient struggled to keep her eyes awake. Patient tolerated exercises well, SLR and heel slides were AAROM, all others AROM. When sitting EOB patient started struggling to breath and have some bronchial breathing. Patient was immediately laid back in bed and nursing notified. Nursing took vitals at this point and HR 67, O2 96%. Once back in bed patient breathing normalized after a time. Rehab Potential: Fair PT Train Conductor Goals Retirement Goals PT Train Conductor Goals Time Frame: Jul 07, 2019 Roll Left & Right (QC): 6 Sit to Lying (QC): 6 Lying-Sitting on Side/Bed(QC): 6 Sit to Stand (QC): 6 Chair/Wgt-qj-Muenj Xfer(QC): 6 Does the Patient Walk: Yes Walk 10 feet (QC): 6 Walk 50ft with 2 Turns (QC): 6 PT Plan Problem List Problem List: Activity Tolerance, Functional Strength, Safety, Balance, Gait, Transfer, Bed Mobility, ROM Treatment/Plan Treatment Plan: Continue Plan of Care Treatment Plan: Bed Mobility, Education, Functional Activity Devika, Functional Strength, Gait, Safety, Therapeutic Exercise, Transfers Treatment Duration: Jul 07, 2019 Frequency: 11 times per week Estimated Hrs Per Day: .25 hour per day Patient and/or Family Agrees t: Yes Safety Risks/Education Patient Education: Correct Positioning, Safety Issues Teaching Recipient: Patient Teaching Methods: Demonstration, Discussion Response to Teaching: Reinforcement Needed Discharge Recommendations Plan Patient will address bed mobility, functional activity tolerance, functional strength, gait, safety, and transfers though strength training, therapeutic exercises, stair training, and education. Therapy Discharge Recommendati: Home & Family Time/GCodes Time In: 1300 Time Out: 1320 Total Billed Treatment Time: 20 Total Billed Treatment [address] CHARLOTTE STEINER PT Jul 04, 2019 14:05
--- NOTE | 2019-07-04 14:23 | Consultation ---
DARYA CASTRO,MED STUDENT 07/04/19 1423: HPI History of Present Illness: HPI/Chief Complaint Mrs. Durham is a 69 year old female status post left total knee arthroplasty for significant osteoarthritis. She failed conservative measures including injections, arthroscopy, and anti-inflammatories. She is currently experiencing some nausea. She states that is typical for her following anesthesia and happens nearly every time. She also notes some chronic constipation. Pain is minimal at this time.She is currently on 3L of oxygen. She denies use at home but does use a CPAP at night that she brought with her. She has no current primary care provider, she previously saw Dr. Knott. She follows Dr Dunlap for cardiology, Dr. Bonds for pulmonology, and Dr. Deleon for endocrinology in [place]. Source: patient Exam Limitations: no limitations Date Seen 07/04/19 Attending Physician Levar Pagan MD PCP No,Local Physician Referring Physician Date of Admission Jul 04, 2019 at 05:56 Home Medications & Allergies Home Medications Reviewed patient Home Medication Reconciliation performed by pharmacy medication reconciliations mold repair technician and/or nursing. Patients Allergies have been reviewed. Allergies Allergies Coded Allergies insulin detemir (Verified Allergy, Intermediate, RASH, takes Lantus & Humalog at home, 08/23/18) red bumps at insertion site of injection Has received regular insulin & Novolog during previous hospitalization Past Ukqzfil-Yaspdk-Peohiv Hx Patient Social History Marrital Status: Alcohol Use: Denies Use Recreational Drug Use: No Smoking Status: Never a Smoker 2nd Hand Smoke Exposure: No Physical Abuse Screen: No Sexual Abuse: No Recent Foreign Travel: No Contact w/other who traveled: No Recent Hopitalizations: No Recent Infectious Disease Expo: No Immunizations Up To Date Tetanus Booster (TDap): Less than 5yrs Pediatric: No Date of Pneumonia Vaccine: Feb 21, 2017 Date of Influenza Vaccine: Feb 19, 2019 Seasonal Allergies Seasonal Allergies: No Past Medical History Surgeries: Bladder Surgery, Breast (R breast cyst excision), Hysterectomy, Orthopedic (R total knee 08/2018, L total knee 06/2019) Respiratory: Asthma Currently Using CPAP: No Currently Using BIPAP: No Cardiac: Atrial Fibrillation, High Cholesterol, Hypertension 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: No Sexually Transmitted Disease: No HIV/AIDS: No Hysterectomy Gastrointestinal: Gastroesophageal Reflux Musculoskeletal: Arthritis Endocrine: Diabetes, Insulin dep, Hypothyroidsim Loss of Vision: Bilateral Hearing Impairment: Denies History of Blood Disorders: No Adverse Reaction to Blood Rubalcava: No (N/A) Family History Arthritis 19 FATHER 19 MOTHER Asthma 19 FATHER Cardiovascular disease 19 FATHER 19 MOTHER Cataracts 19 MOTHER Deafness or hearing loss 19 FATHER Dementia 19 MOTHER Diabetes mellitus G8 SISTER G8 SISTER Glaucoma 19 FATHER Hypertension 19 MOTHER Prostate cancer 19 FATHER Respiratory disorder 19 FATHER Thyroid disease G8 SISTER Asthma, Heart Disease, Diabetes, Hypertension Review of Systems Constitutional: No chills, No fever Respiratory: No cough; short of breath Cardiovascular: No chest pain, No palpitations Gastrointestinal: No abdominal pain; constipation (chronic), nausea; No vomiting Genitourinary: No decreased output, No dysuria Musculoskeletal: joint pain Skin: no symptoms reported Physical Exam Physical Exam Vital Signs Vital Signs - First Documented Capillary Refill : Less Than 3 Seconds Height, Weight, BMI Height: 5'5.00" Weight: 226lbs. 4.0oz. 102.233408qg; 38.67 BMI Method:Stated General Appearance: WD/WN, Mild Distress HEENT: PERRL/EOMI, Moist Mucous Membranes Respiratory: Chest Non Tender, Lungs Clear, Normal Breath Sounds, No Accessory Muscle Use, No Respiratory Distress Cardiovascular: Regular Rate, Rhythm, Systolic Murmur Gastrointestinal: Normal Bowel Sounds, Non Tender, Soft; No Distended, No Guarding Extremity: No Calf Tenderness Neurologic/Psychiatric: Alert, Oriented x3, Normal Mood/Affect Skin: Normal Color, Warm/Dry, Other (clean and dry bandage covering L knee) Results Results/Procedures Labs Patient resulted labs reviewed. Imaging Knee x-ray IMPRESSION: Stable postoperative left knee. Assessment/Plan Assessment and Plan Assess & Plan/Chief Complaint Assessment: S/P L knee arthroplasty DM Constipation Asthma Murmur - Echo 2011 showed EF 55-60% and mild mitral and tricuspid regurgitation PHILLIP Plan: Scopolamine patch ordered Begin bowel regimen - Senna Mobility as tolerated and directed by Dr. 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 She sees Endocrinology in [place]. Patient also has a lot of pain and is being treated for that. Upon review of her sugars will check BMP for acidosis and give Regular insulin 30 units x 1 now. Past Vfuaagf-Rzyezu-Ysasml Hx Past Med/Social Hx: Reviewed Nursing Past Med/Soc Hx, Reviewed and Corrections made Patient Social History Marrital Status: Employed/Student: retired Smoking Status: Never a Smoker Past Medical History Respiratory: Sleep Apnea Currently Using CPAP: Yes Currently Using BIPAP: No Gastrointestinal: Chronic Constipation Musculoskeletal: Arthritis Endocrine: Diabetes, Insulin dep Family History Arthritis 19 FATHER 19 MOTHER Asthma 19 FATHER Cardiovascular disease 19 FATHER 19 MOTHER Cataracts 19 MOTHER Deafness or hearing loss 19 FATHER Dementia 19 MOTHER Diabetes mellitus G8 SISTER G8 SISTER Glaucoma 19 FATHER Hypertension 19 MOTHER Prostate cancer 19 FATHER Respiratory disorder 19 FATHER Thyroid disease G8 SISTER Review of Systems Constitutional: see HPI Gastrointestinal: nausea, vomiting Musculoskeletal: joint pain Physical Exam Physical Exam General Appearance: Chronically ill, Mild Distress, Obese Respiratory: Chest Non Tender, Lungs Clear, Normal Breath Sounds, No Accessory Muscle Use, No Respiratory Distress Cardiovascular: Regular Rate, Rhythm, No Edema, No Gallop, No JVD, Normal Peripheral Pulses, Systolic Murmur Assessment/Plan Assessment and Plan Assess & Plan/Chief Complaint Nausea treatment, pain control, sugar control with more insulin, davenport cath, NS IVF to rehydrate from high glucose, monitor Hgb, PT/OT, IRF? Diagnosis/Problems Diagnosis/Problems (1) Status post left knee replacement (2) Postoperative nausea (3) Urinary retention (4) Hyperglycemia (5) PHILLIP on CPAP (6) Valvular heart disease (7) Atrial fibrillation Status: Chronic (8) Diabetes mellitus Status: Chronic (9) Hypertension Status: Chronic Supervisory-Addendum Brief Verification & Attestation Participated in pt care: history, MDM, physical Personally performed: exam, history, MDM, supervision of care Care discussed with: Medical Student Procedures: n/a Results interpretation: Verified all documentation Verification and Attestation of Medical Student E/M Service A medical student performed and documented this service in my presence. I reviewed and verified all information documented by the medical student and made modifications to such information, when appropriate. I personally performed the physical exam and medical decision making. Brittany Felipe, Jul 04, 2019,19:31 DARYA CASTRO,MED STUDENT Jul 04, 2019 14:23 BRITTANY FELIPE DO Jul 04, 2019 19:30
[2019-07-04] MEDS: CEFUROXIME INJECTION 750 MG in WATER (STERILE) FOR INJECTION 10 ML IV SCH (15:22)
--- NOTE | 2019-07-04 15:31 | Physical Therapy Progress Note ---
Therapy Progress Note CPM was not able to be put on this morning due to patient having breathing issues (nurse notified and has seen the patient) and cannot lay flat enough to put it on. This afternoon checked on patient to put the CPM on and she had just vomited into her emesis basin, cannot lay down to apply CPM. Will put it on in the morning if able. CHARLOTTE STEINER PT Jul 04, 2019 15:31
--- NOTE | 2019-07-04 15:50 | Pulmonary Consultation ---
History of Present Illness History of Present Illness Date Seen by Provider: Jul 04, 2019 Time Seen by Provider: 15:44 Date of Admission Allergies and Home Medications Allergies Coded Allergies: insulin detemir (Verified Allergy, Intermediate, RASH, takes Lantus & Humalog at home, 08/23/18) red bumps at insertion site of injection Has received regular insulin & Novolog during previous hospitalization Home Medications Apixaban 5 Mg Tablet, 5 MG PO BID, (Reported) Cetirizine HCl 10 Mg Tablet, 10 MG PO DAILY, (Reported) Clonidine HCl 0.2 Mg Tablet, 0.2 MG PO BID, (Reported) Diltiazem HCl 300 Mg Cap.er.24h, 300 MG PO DAILY, (Reported) Doxazosin Mesylate 2 Mg Tablet, 2 MG PO BID, (Reported) Enalapril Maleate 10 Mg Tablet, 10 MG PO DAILY, (Reported) Flaxseed Oil 1,000 Mg Capsule, 1,000 MG PO DAILY, (Reported) Flecainide Acetate 150 Mg Tablet, 150 MG PO BID, (Reported) Insulin Glargine,Hum.rec.anlog 300 Unit/1 Ml Insuln.pen, 26 UNIT SQ HS, (Reported) Insulin Lispro 100 Unit/1 Ml Cartridge, 0 SQ AC, (Reported) Levothyroxine Sodium 100 Mcg Tablet, 100 MCG PO DAILY, (Reported) Lutein 6 Mg Capsule, 6 MG PO DAILY, (Reported) Montelukast Sodium 10 Mg Tablet, 10 MG PO DAILY, (Reported) Multivitamin 1 Each Tablet, 1 TAB PO DAILY, (Reported) Omeprazole 20 Mg Capsule.dr, 20 MG PO DAILY, (Reported) Oxycodone HCl/Acetaminophen 1 Each Tablet, 1 TAB PO Q4H Prescribed by: ROSALINA VALDES on 07/04/19 0728 Pravastatin Sodium 40 Mg Tablet, 40 MG PO DAILY, (Reported) Past Menkbzw-Chswwl-Ecbijb Hx Patient Social History Alcohol Use: Denies Use Recreational Drug Use: No Smoking Status: Never a Smoker 2nd Hand Smoke Exposure: No Recent Foreign Travel: No Contact w/Someone Who Travel: No Recent Infectious Disease Expo: No Recent Hopitalizations: No Immunizations Up To Date Tetanus Booster (TDap): Less than 5yrs PED Vaccines UTD: No Date of Pneumonia Vaccine: Feb 21, 2017 Date of Influenza Vaccine: Feb 19, 2019 Seasonal Allergies Seasonal Allergies: No Past Medical History Surgeries: Yes (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, BILAT KNEE SCOPE, R TKR) Bladder Surgery, Breast (R breast cyst excision), Hysterectomy, Orthopedic (R total knee 08/2018, L total knee 06/2019) Respiratory: Yes (HAD ASTHMA A CHILD, LUNG PROBLEMS WHEN PT GETS COLDS) Asthma, Chronic Bronchitis, Sleep Apnea Currently Using CPAP: No Currently Using BIPAP: No Cardiac: Yes (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 12) Atrial Fibrillation, High Cholesterol, Hypertension Neurological: No 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 Disorders: No 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: Hysterectomy Sexually Transmitted Disease: No HIV/AIDS: No Genitourinary: No Gastrointestinal: Yes Gastroesophageal Reflux Musculoskeletal: Yes (RT KNEE OSTEOARTHRITIS) Arthritis Endocrine: Yes Diabetes, Insulin dep, Hypothyroidsim HEENT: Yes (GLASSES) Loss of Vision: Bilateral Hearing Impairment: Denies Cancer: No Psychosocial: No Integumentary: No Blood Disorders: No Adverse Reaction/Blood Tranf: No (N/A) Family Medical History Arthritis 19 FATHER 19 MOTHER Asthma 19 FATHER Cardiovascular disease 19 FATHER 19 MOTHER Cataracts 19 MOTHER Deafness or hearing loss 19 FATHER Dementia 19 MOTHER Diabetes mellitus G8 SISTER G8 SISTER Glaucoma 19 FATHER Hypertension 19 MOTHER Prostate cancer 19 FATHER Respiratory disorder 19 FATHER Thyroid disease G8 SISTER Asthma, Heart Disease, Diabetes, Hypertension Sepsis Event Evaluation Height, Weight, BMI Height: 5'5.00" Weight: 226lbs. 4.0oz. 102.401536ju; 38.67 BMI Method:Stated Exam Exam Vital Signs Date Time Temp Pulse Resp B/P (MAP) Pulse Ox O2 Delivery O2 Flow Rate FiO2 07/04/19 12:00 36.5 69 18 146/65 (92) 99 Nasal Cannula 3.00 07/04/19 10:25 36.4 64 18 148/64 (92) 97 Nasal Cannula 3.00 07/04/19 10:20 Nasal Cannula 4 07/04/19 10:20 36.7 20 140/51 (80) 95 Nasal Cannula 3 07/04/19 10:15 Nasal Cannula 4 07/04/19 10:10 20 140/52 (81) 95 Nasal Cannula 3 07/04/19 10:00 20 149/51 (83) 98 OxyMask 3 07/04/19 10:00 OxyMask 6 07/04/19 09:50 20 125/50 (75) 100 OxyMask 4 07/04/19 09:45 OxyMask 6 07/04/19 09:40 20 129/50 (76) 99 OxyMask 6 07/04/19 09:30 OxyMask 6 07/04/19 09:30 20 135/48 (77) 100 OxyMask 10 07/04/19 09:20 20 135/48 (77) 100 OxyMask 6 07/04/19 09:16 36.7 20 130/44 (72) 100 OxyMask 6 07/04/19 09:16 OxyMask 6 07/04/19 06:25 98 Room Air 07/04/19 06:25 36.4 83 18 199/68 98 Room Air Height & Weight Height: 5'5.00" Weight: 226lbs. 4.0oz. 102.777033zt; 38.67 BMI Method:Stated General Appearance: WD/WN, Mild Distress HEENT: PERRL/EOMI, Moist Mucous Membranes Respiratory: Chest Non Tender, Lungs Clear, Normal Breath Sounds, No Accessory Muscle Use, No Respiratory Distress Cardiovascular: Regular Rate, Rhythm, Systolic Murmur Extremity: No Calf Tenderness Neurologic/Psychiatric: Alert, Oriented x3, Normal Mood/Affect Skin: Normal Color, Warm/Dry, Other (clean and dry bandage covering L knee) Assessment/Plan Assessment/Plan S/P L knee arthroplasty PHILLIP -Will use BiPAP QHS until pt gets home machine DM Constipation Asthma Murmur - Echo 2011 showed EF 55-60% and mild mitral and tricuspid regurgitation EVELYN FROST DO Jul 04, 2019 15:49
--- NOTE | 2019-07-04 15:51 | Consultation-Cardiology ---
HPI-Cardiology Cardiology Consultation: Date of Consultation 07/04/19 Time Seen by a Provider: 16:40 Date of Admission 07-04-2019 Attending Physician Levar Pagan MD Admitting Physician No,Local Physician Consulting Physician Connor Dunlap MD HPI: Chief Complaint: Hypotension Ms. Durham is a 69 year old female admitted to 425 post total left knee arthroplasty by Dr. Pagan earlier today. She reports she has had n/v since coming out of anesthesia, which is common for her post anesthesia. She denies any c/o CP, palpitations or dyspnea. Review of Systems-Cardiology Review of Systems Constitutional: No chills, No fever Eyes: No vision change Ears/Nose/Throat: No epistaxis, No recent hearing loss Respiratory: As described under HPI Cardiovascular: As described under HPI Gastrointestinal: nausea, vomiting ZMW-Nacwsg-Uwcwbb Hx Patient Social History Marrital Status: Alcohol Use: Denies Use Recreational Drug Use: No Smoking Status: Never a Smoker 2nd Hand Smoke Exposure: No Recent Foreign Travel: No Recent Infectious Disease Expo: No Physical Abuse Screen: No Sexual Abuse: No Immunizations Up To Date Tetanus Booster (TDap): Less than 5yrs Date of Pneumonia Vaccine: Feb 21, 2017 Date of Influenza Vaccine: Feb 19, 2019 Past Medical History PMH As described under Assessment. Family Medical History Family Medical History: Reported h/o father and mother having CAD. Sisters x 2 with DM. Family History: 19 FATHER Arthritis Asthma Cardiovascular disease Deafness or hearing loss Glaucoma Prostate cancer Respiratory disorder 19 MOTHER Arthritis Cardiovascular disease Hypertension Cataracts Dementia G8 SISTER Diabetes mellitus Thyroid disease G8 SISTER Diabetes mellitus Allergies and Home Medications Allergies Coded Allergies: insulin detemir (Verified Allergy, Intermediate, RASH, takes Lantus & Humalog at home, 08/23/18) red bumps at insertion site of injection Has received regular insulin & Novolog during previous hospitalization Home Medications Apixaban 5 Mg Tablet, 5 MG PO BID, (Reported) Cetirizine HCl 10 Mg Tablet, 10 MG PO DAILY, (Reported) Clonidine HCl 0.2 Mg Tablet, 0.2 MG PO BID, (Reported) Diltiazem HCl 300 Mg Cap.er.24h, 300 MG PO DAILY, (Reported) Doxazosin Mesylate 2 Mg Tablet, 2 MG PO BID, (Reported) Enalapril Maleate 10 Mg Tablet, 10 MG PO DAILY, (Reported) Flaxseed Oil 1,000 Mg Capsule, 1,000 MG PO DAILY, (Reported) Flecainide Acetate 150 Mg Tablet, 150 MG PO BID, (Reported) Insulin Glargine,Hum.rec.anlog 300 Unit/1 Ml Insuln.pen, 26 UNIT SQ HS, (Reported) Insulin Lispro 100 Unit/1 Ml Cartridge, 0 SQ AC, (Reported) Levothyroxine Sodium 100 Mcg Tablet, 100 MCG PO DAILY, (Reported) Lutein 6 Mg Capsule, 6 MG PO DAILY, (Reported) Montelukast Sodium 10 Mg Tablet, 10 MG PO DAILY, (Reported) Multivitamin 1 Each Tablet, 1 TAB PO DAILY, (Reported) Omeprazole 20 Mg Capsule.dr, 20 MG PO DAILY, (Reported) Oxycodone HCl/Acetaminophen 1 Each Tablet, 1 TAB PO Q4H Prescribed by: LEVAR PAGAN on 07/04/19727 Pravastatin Sodium 40 Mg Tablet, 40 MG PO DAILY, (Reported) Patient Home Medication List Home Medication List Reviewed: Yes Physical Exam-Cardiology Physical Exam Vital Signs/I&O 07/04/19 07/04/19 07/04/19 07/04/19 06:25 06:25 09:16 09:16 Temp 36.4 36.7 Pulse 83 Resp 18 20 B/P (MAP) 199/68 130/44 (72) Pulse Ox 98 98 100 O2 Delivery Room Air Room Air OxyMask OxyMask O2 Flow Rate 6 6 07/04/19 07/04/19 07/04/19 07/04/19 09:20 09:30 09:30 09:40 Resp 20 20 20 B/P (MAP) 135/48 (77) 135/48 (77) 129/50 (76) Pulse Ox 100 100 99 O2 Delivery OxyMask OxyMask OxyMask OxyMask O2 Flow Rate 6 10 6 6 07/04/19 07/04/19 07/04/19 07/04/19 09:45 09:50 10:00 10:00 Resp 20 B/P (MAP) 125/50 (75) 149/51 (83) Pulse Ox 100 98 O2 Delivery OxyMask OxyMask OxyMask OxyMask O2 Flow Rate 6 4 6 3 07/04/19 07/04/19 07/04/19 07/04/19 10:10 10:15 10:20 10:20 Temp 36.7 Resp 20 20 B/P (MAP) 140/52 (81) 140/51 (80) Pulse Ox 95 95 O2 Delivery Nasal Cannula Nasal Cannula Nasal Cannula Nasal Cannula O2 Flow Rate 3 4 3 4 07/04/19 07/04/19 07/04/19 10:25 12:00 16:53 Temp 36.4 36.5 Pulse 64 69 Resp 18 18 B/P (MAP) 148/64 (92) 146/65 (92) Pulse Ox 97 99 O2 Delivery Nasal Cannula Nasal Cannula Nasal Cannula O2 Flow Rate 3.00 3.00 3.00 Capillary Refill : Less Than 3 Seconds Constitutional: AAO x 3, well-nourished HEENT: PERRL, hearing is well preserved Neck: No carotid bruit; carotid pulses are 2 + bilaterally Respiratory: No accessory muscle use, No respiratory distress; chest expansion is symmetric, chest is bilaterally symmetric, lungs clear to auscultation Cardiovascular: regular rate-rhythm; No JVD; S1 and S2 Gastrointestinal: No tender; soft; No guarding; audible bowel sounds Extremities: other (dressing to left knee not removed), no lower extremity edema bilateral Neurologic/Psychiatric: other (moves extremities; left leg post surgical not manipulated) Skin: No rash on exposed areas, No ulcerations on exposed areas Data Review Labs Laboratory Tests 07/04/19 06:24: Glucometer 249H 07/04/19 09:31: Glucometer 354H 07/04/19 13:26: Glucometer 514*H Radiology NAME: BERNADETTE DURHAM Kendra [facility] REC#: [id number] PT STATUS: ADM IN : 1950 PHYSICIAN: EVELYN BONDS DO ADMIT DATE: 07/04/19 Signed Date of Exam:07/04/19 CHEST 1 VIEW, AP/PA ONLY EXAMINATION: Chest 1 view HISTORY: Vomiting and shortness of breath COMPARISON: 08/16/2018 FINDINGS: The lungs are clear without edema or pneumonia. No pleural effusion or pneumothorax. Heart size is normal. IMPRESSION: 1. Clear lungs. Dictated by: Dictated on workstation # [id number] Dict: 07/04/191702 Trans: 07/04/191702 [facility] [id number] Interpreted by: EMILY DO MD Electronically signed by: EMILY DO MD 07/04/19 1709 A/P-Cardiology Assessment/Admission Diagnosis Intractable n/v - management per surgical services S/P total left knee arthroplasty on 07-04-[address] Pagan Hypotension Paroxysmal atrial flutter/fibrillation currently controlled on therapy with flecainide. This has been managed by Dr Eid in EP consult in [place], [place] (sees only on a PRN basis) Echo of Jun 26, 2018 LVEF 60-65%. LA mildly dilated. Mild MR. PASP 30 mmHg Chronic Eliquis anticoag No angiographically significant coronary artery disease. Normal global left ventricular systolic function, no significant mitral regurgitation, and normal left ventricular end-diastolic pressure on cardiac catheterization in October 2011. MPI of Jun 06, 2018 showed no evidence of any significant myocardial ischemia or infarction. LVEF 74% H/O Hypertension Maturity onset diabetes mellitus, being followed by her Landing Scaler, Dr. Farias. Hypothyroidism being treated with thyroid replacement therapy. Potassium level at the top limits of normal to minimally elevated. Cessation of ISATU inhibitors does not seem to have changed this very much. Her palliative senior np has advised continuing ISATU-inhib therapy Hyperlipidemia being treated with statins and being followed by her Endocri nologist, Dr. Farias Mild bilat internal carotid dz per u/s of July 2018 Elevated BMI of approx 38 PHILLIP diagnosed on sleep study of 07/17/16, being followed by Dr Bonds Discussion and Recomendations Somewhat low BP likely d/t medications - hold antihypertensives for now Monitor electrolytes and replace as indicated to try and prevent a-fib Resume CCB and anti-arrhythmics when able Continue Lovenox - resume OAC with Eliquis as soon as possible d/t known h/o a- fib for stroke prophylaxis Intractable n/v post surgery - management per medical services Continue IVF Further recs will be based on her hospital course We would like to thank medical services for this consult Clinical Quality Measures DVT/VTE Risk/Contraindication: Risk Factor Score Per Nursin RFS Level Per Nursing on Admit: 4+=Very High ANDRIA LARRY Jul 04, 2019 15:51
[2019-07-04] MEDS ORDERED: PROMETHAZINE INJ 25 MG/ML (PHENERGAN) AMP IM PRN (16:30)
[2019-07-04] MEDS ORDERED: NS IV 500 ML 500 ML IV ONE (16:30)
--- NOTE | 2019-07-04 17:04 | Diagnostic Imaging Report ---
EXAMINATION: Chest 1 view HISTORY: Vomiting and shortness of breath COMPARISON: 08/16/2018 FINDINGS: The lungs are clear without edema or pneumonia. No pleural effusion or pneumothorax. Heart size is normal. IMPRESSION: 1. Clear lungs. Dictated by: Dictated on workstation # [id number]
--- NOTE | 2019-07-04 18:26 | Consultation-Cardiology ---
HPI-Cardiology Cardiology Consultation: Date of Consultation 07/04/19 Time Seen by a Provider: 17:30 Date of Admission Attending Physician Levar Pagan MD Admitting Physician No,Local Physician Consulting Physician CHARLES LINN MD, MA, FACP, FACC, FSCAI, CCDS HPI: Chief Complaint: Reason for consultation: Periop cardiac management Physician requesting consult: Dr Destinee MARQUEZ Ms. Durham is a 69 year old female admitted to 425 post total left knee arthroplasty by Dr. Pagan earlier today. She reports she has had n/v since coming out of anesthesia, which is common for her post anesthesia. She denies any c/o CP, palpitations or dyspnea. Review of Systems-Cardiology Review of Systems Constitutional: No chills, No fever Eyes: No vision change Ears/Nose/Throat: No epistaxis, No recent hearing loss Respiratory: As described under HPI Cardiovascular: As described under HPI Gastrointestinal: nausea, vomiting Genitourinary: No dysuria, No hematuria, No urine frequency changes Musculoskeletal: As describe under HPI Skin: No rash, No ulcerations Psychiatric/Neurological: No seizure, No focal weakness Hematologic: No bleeding abnormalities RVO-Hxnhse-Uhdreh Hx Patient Social History Marrital Status: Alcohol Use: Denies Use Recreational Drug Use: No Smoking Status: Never a Smoker 2nd Hand Smoke Exposure: No Recent Foreign Travel: No Recent Infectious Disease Expo: No Physical Abuse Screen: No Sexual Abuse: No Immunizations Up To Date Tetanus Booster (TDap): Less than 5yrs Date of Pneumonia Vaccine: Feb 21, 2017 Date of Influenza Vaccine: Feb 19, 2019 Past Medical History PMH As described under Assessment. Family Medical History Family Medical History: Reported h/o father and mother having CAD. Sisters x 2 with DM. Family History: Arthritis 19 FATHER 19 MOTHER Asthma 19 FATHER Cardiovascular disease 19 FATHER 19 MOTHER Cataracts 19 MOTHER Deafness or hearing loss 19 FATHER Dementia 19 MOTHER Diabetes mellitus G8 SISTER G8 SISTER Glaucoma 19 FATHER Hypertension 19 MOTHER Prostate cancer 19 FATHER Respiratory disorder 19 FATHER Thyroid disease G8 SISTER Allergies and Home Medications Allergies Coded Allergies: insulin detemir (Verified Allergy, Intermediate, RASH, takes Lantus & Humalog at home, 08/23/18) red bumps at insertion site of injection Has received regular insulin & Novolog during previous hospitalization Home Medications Apixaban 5 Mg Tablet, 5 MG PO BID, (Reported) Cetirizine HCl 10 Mg Tablet, 10 MG PO DAILY, (Reported) Clonidine HCl 0.2 Mg Tablet, 0.2 MG PO BID, (Reported) Diltiazem HCl 300 Mg Cap.er.24h, 300 MG PO DAILY, (Reported) Doxazosin Mesylate 2 Mg Tablet, 2 MG PO BID, (Reported) Enalapril Maleate 10 Mg Tablet, 10 MG PO DAILY, (Reported) Flaxseed Oil 1,000 Mg Capsule, 1,000 MG PO DAILY, (Reported) Flecainide Acetate 150 Mg Tablet, 150 MG PO BID, (Reported) Insulin Glargine,Hum.rec.anlog 300 Unit/1 Ml Insuln.pen, 26 UNIT SQ HS, (Reported) Insulin Lispro 100 Unit/1 Ml Cartridge, 0 SQ AC, (Reported) Levothyroxine Sodium 100 Mcg Tablet, 100 MCG PO DAILY, (Reported) Lutein 6 Mg Capsule, 6 MG PO DAILY, (Reported) Montelukast Sodium 10 Mg Tablet, 10 MG PO DAILY, (Reported) Multivitamin 1 Each Tablet, 1 TAB PO DAILY, (Reported) Omeprazole 20 Mg Capsule.dr, 20 MG PO DAILY, (Reported) Oxycodone HCl/Acetaminophen 1 Each Tablet, 1 TAB PO Q4H Prescribed by: LEVAR PAGAN on 07/04/19727 Pravastatin Sodium 40 Mg Tablet, 40 MG PO DAILY, (Reported) Patient Home Medication List Home Medication List Reviewed: Yes Physical Exam-Cardiology Physical Exam Vital Signs/I&O 07/04/19 07/04/19 07/04/19 07/04/19 06:25 06:25 09:16 09:16 Temp 36.4 36.7 Pulse 83 Resp 20 B/P (MAP) 199/68 130/44 (72) Pulse Ox 98 98 100 O2 Delivery Room Air Room Air OxyMask OxyMask O2 Flow Rate 6 6 07/04/19 07/04/19 07/04/19 07/04/19 09:20 09:30 09:30 09:40 Resp 20 B/P (MAP) 135/48 (77) 135/48 (77) 129/50 (76) Pulse Ox 100 100 99 O2 Delivery OxyMask OxyMask OxyMask OxyMask O2 Flow Rate 6 10 6 6 2/19/20 07/04/19 07/04/19 07/04/19 09:45 09:50 10:00 10:00 Resp 20 20 B/P (MAP) 125/50 (75) 149/51 (83) Pulse Ox 100 98 O2 Delivery OxyMask OxyMask OxyMask OxyMask O2 Flow Rate 6 4 6 3 07/04/19 07/04/19 07/04/19 07/04/19 10:10 10:15 10:20 10:20 Temp 36.7 Resp 20 20 B/P (MAP) 140/52 (81) 140/51 (80) Pulse Ox 95 95 O2 Delivery Nasal Cannula Nasal Cannula Nasal Cannula Nasal Cannula O2 Flow Rate 3 4 3 4 07/04/19 07/04/19 07/04/19 07/04/19 10:25 12:00 16:53 17:33 Temp 36.4 36.5 Pulse 64 69 Resp 18 18 B/P (MAP) 148/64 (92) 146/65 (92) Pulse Ox 97 99 O2 Delivery Nasal Cannula Nasal Cannula Nasal Cannula Nasal Cannula O2 Flow Rate 3.00 3.00 3.00 3.00 Capillary Refill : Less Than 3 Seconds Constitutional: AAO x 3, well-nourished HEENT: PERRL, hearing is well preserved Neck: No carotid bruit; carotid pulses are 2 + bilaterally Respiratory: No accessory muscle use, No respiratory distress; chest expansion is symmetric, chest is bilaterally symmetric, lungs clear to auscultation Cardiovascular: regular rate-rhythm; No JVD; S1 and S2 Gastrointestinal: No tender; soft; No guarding; audible bowel sounds Extremities: other (dressing to left knee not removed), no lower extremity edema bilateral Neurologic/Psychiatric: other (moves extremities; left leg post surgical not manipulated) Skin: No rash on exposed areas, No ulcerations on exposed areas Data Review Labs Laboratory Tests 07/04/19 06:24: Glucometer 249H 07/04/19 09:31: Glucometer 354H 07/04/19 13:26: Glucometer 514*H 07/04/19 16:59: Glucometer 455*H A/P-Cardiology Assessment/Admission Diagnosis Intractable n/v - management per Surgical and Hospitalist services S/P total left knee arthroplasty on 07-04-[address] Pagan Hypotension Paroxysmal atrial flutter/fibrillation currently controlled on therapy with fl ecainide. This has been managed by Dr Eid in EP consult in [place], [place] Echo of Jun 26, 2018 LVEF 60-65%. LA mildly dilated. Mild MR. PASP 30 mmHg Chronic Eliquis anticoag No angiographically significant coronary artery disease. Normal global left ventricular systolic function, no significant mitral regurgitation, and normal left ventricular end-diastolic pressure on cardiac catheterization in October 2011. MPI of Jun 06, 2018 showed no evidence of any significant myocardial ischemia or infarction. LVEF 74% H/O Hypertension Maturity onset diabetes mellitus, being followed by her Conservation Of Resources Commissioner, Dr. Farias. Hypothyroidism being treated with thyroid replacement therapy. Potassium level at the top limits of normal to minimally elevated. Cessation of ISATU inhibitors does not seem to have changed this very much. Her plastic panel installer has advised continuing ISATU-inhib therapy Hyperlipidemia being treated with statins and being followed by her Conservation Of Resources Commissioner, Dr. Farias Mild bilat internal carotid dz per u/s of July 2018 Elevated BMI of approx 38 PHILLIP diagnosed on sleep study of 07/17/16, being followed by Dr Bonds Discussion and Recomendations * Somewhat low BP likely d/t medications - hold antihypertensives for now. Resume when clinically appropriate * Monitor electrolytes and replace as indicated to try and prevent a-fib * Resume CCB and anti-arrhythmics when able * Continue Lovenox - resume OAC with Eliquis as soon as possible d/t known h/o a-fib for stroke prophylaxis * Continue IVF * Further recs will be based on her hospital course * We would like to thank Medical/Hospitalist service for this consult Clinical Quality Measures DVT/VTE Risk/Contraindication: Risk Factor Score Per Nursin RFS Level Per Nursing on Admit: 4+=Very High CHARLES LINN MD FACP FAC CCDS Jul 04, 2019 18:26
[2019-07-04] MEDS ORDERED: inSUlin (REGULAR) HUMAN 1 UNIT/0.01 ML (CHARGE PER UNIT) SC NR (19:30)
[2019-07-04 19:51] LABS: CALCIUM 8.9 MG/DL (8.5-10.1); CREATININE SERUM 1.5 MG/DL (0.60-1.30); POTASSIUM 5.6 MMOL/L (3.6-5.0)
[2019-07-04] MEDS ORDERED: PATIENT MAY USE OWN MEDS, ALL MC SCH (20:30)
[2019-07-04] MEDS ORDERED: FLECAINIDE ACETATE 150 MG PO SCH (21:00)
[2019-07-04] MEDS ORDERED: TOUJEO SOLOSTAR 300 UNITS/ML SQ SCH (21:00)
[2019-07-04] MEDS: RT-ALBUTEROL/IPRATROPIUM 3 ML (DUONEB) VIAL INH SCH (21:01)
[2019-07-04] MEDS: doxAzosin 2 MG (CARDURA) TAB PO SCH (21:43)
[2019-07-04] MEDS: FLECAINIDE 100 MG (TAMBOCOR) TAB PO SCH (21:43)
[2019-07-04] MEDS: cloNIDine 0.2 MG (CATAPRES) TAB PO SCH (21:43)
[2019-07-04] MEDS: oxyCODONE/APAP 5/325MG (PERCOCET 5) TABLET PO PRN (22:41)
[2019-07-05 00:34] VITALS: BP 157/69
[2019-07-05] MEDS: CEFUROXIME INJECTION 750 MG in WATER (STERILE) FOR INJECTION 10 ML IV SCH (00:50)
[2019-07-05 04:00] VITALS: BP 188/72
[2019-07-05] MEDS: inSUlin ASPART (NovoLOG) 1 UNIT/0.01 ML (CHARGE PER UNIT) SQ SCH ×2 (06:02→11:22)
[2019-07-05] MEDS: oxyCODONE/APAP 5/325MG (PERCOCET 5) TABLET PO PRN ×3 (06:17→10:16)
[2019-07-05] MEDS: NS IV 1000 ML 1,000 ML IV SCH (06:28)
[2019-07-05] MEDS ORDERED: LEVOTHYROXINE 100 MCG (LEVOTHROID) TAB PO SCH (06:30)
[2019-07-05 06:36] LABS: BASOPHILS % (AUTO) 0 % (0-10); EOSINOPHILS % (AUTO) 0 % (0-10); HEMATOCRIT 28 % (35-52); HEMOGLOBIN 8.5 G/DL (11.5-16.0); LYMPHOCYTES # (AUTO) 1.2 X 10^3 (1.0-4.0); LYMPHOCYTES % (AUTO) 9 % (12-44); MEAN CORPUSCULAR HEMOGLOBIN 27 PG (25-34); MEAN CORPUSCULAR HGB CONC 31 G/DL (32-36); MEAN CORPUSCULAR VOLUME 88 FL (80-99); MEAN PLATELET VOLUME 10.2 FL (7.4-10.4); MONOCYTES # (AUTO) 1.7 X 10^3 (0.0-1.0); MONOCYTES % (AUTO) 13 % (0-12); NEUTROPHILS # (AUTO) 10.4 X 10^3 (1.8-7.8); NEUTROPHILS % (AUTO) 78 % (42-75); PLATELET COUNT 275 10^3/uL (130-400); RED CELL DISTRIBUTION WIDTH 16.1 % (10.0-14.5); WHITE BLOOD COUNT 13.4 10^3/uL (4.3-11.0)
[2019-07-05 06:57] LABS: ALBUMIN 3.7 GM/DL (3.2-4.5); BILIRUBIN,TOTAL 0.6 MG/DL (0.1-1.0); CALCIUM 8.9 MG/DL (8.5-10.1); CREATININE SERUM 1.57 MG/DL (0.60-1.30); MAGNESIUM 1.9 MG/DL (1.6-2.4); POTASSIUM 5.1 MMOL/L (3.6-5.0); TOTAL PROTEIN 7.1 GM/DL (6.4-8.2)
[2019-07-05] MEDS ORDERED: MULTIVIT W/MINERALS TAB (THERAGRAN M) PO SCH ×2 (07:00→09:00)
[2019-07-05] MEDS: RT-ALBUTEROL/IPRATROPIUM 3 ML (DUONEB) VIAL INH SCH (07:10)
--- NOTE | 2019-07-05 07:24 | Pulmonary Progress Note ---
Subjective Time Seen by a Provider: 07:24 Sepsis Event Evaluation Height, Weight, BMI Height: 5'5.00" Weight: 226lbs. 4.0oz. 102.390053wd; 38.67 BMI Method:Stated Exam Exam Vital Signs Date Time Temp Pulse Resp B/P (MAP) Pulse Ox O2 Delivery O2 Flow Rate FiO2 07/05/19 07:10 98 Nasal Cannula 3.00 07/05/19 04:00 36.6 63 18 188/72 (110) 100 Room Air 07/05/19 01:00 57 07/05/19 00:34 37.4 67 20 157/69 (98) 98 Room Air 07/04/19 21:02 98 Nasal Cannula 3.00 07/04/19 20:10 74 07/04/19 20:00 37.0 77 18 162/70 (100) 98 Room Air 07/04/19 19:40 Room Air 07/04/19 18:20 78 166/66 (99) 07/04/19 17:33 Nasal Cannula 3.00 07/04/19 16:53 Nasal Cannula 3.00 07/04/19 16:00 36.6 76 18 173/66 (101) 98 Room Air 07/04/19 12:00 36.5 69 18 146/65 (92) 99 Nasal Cannula 3.00 07/04/19 10:25 36.4 64 18 148/64 (92) 97 Nasal Cannula 3.00 07/04/19 10:20 Nasal Cannula 4 07/04/19 10:20 36.7 20 140/51 (80) 95 Nasal Cannula 3 07/04/19 10:15 Nasal Cannula 4 07/04/19 10:10 20 140/52 (81) 95 Nasal Cannula 3 07/04/19 10:00 20 149/51 (83) 98 OxyMask 3 07/04/19 10:00 OxyMask 6 07/04/19 09:50 20 125/50 (75) 100 OxyMask 4 07/04/19 09:45 OxyMask 6 07/04/19 09:40 20 129/50 (76) 99 OxyMask 6 07/04/19 09:30 OxyMask 6 07/04/19 09:30 20 135/48 (77) 100 OxyMask 10 07/04/19 09:20 20 135/48 (77) 100 OxyMask 6 07/04/19 09:16 36.7 20 130/44 (72) 100 OxyMask 6 07/04/19 09:16 OxyMask 6 I & O 07/05/19 07:00 Intake Total 3715 ml Output Total 1200 ml Balance 2515 ml Height & Weight Height: 5'5.00" Weight: 226lbs. 4.0oz. 102.778752hb; 38.67 BMI Method:Stated General Appearance: No Apparent Distress, Chronically ill, Obese HEENT: PERRL/EOMI, Moist Mucous Membranes Respiratory: Chest Non Tender, Lungs Clear, Normal Breath Sounds, No Accessory Muscle Use, No Respiratory Distress Cardiovascular: Regular Rate, Rhythm, No Edema, No Gallop, No JVD, Normal Peripheral Pulses, Systolic Murmur Capillary Refill: Less Than 3 Seconds Extremity: No Calf Tenderness Neurologic/Psychiatric: Alert, Oriented x3, Normal Mood/Affect Skin: Normal Color, Warm/Dry, Other (clean and dry bandage covering L knee) Results Lab Laboratory Tests 07/04/19 19:29 07/05/19 06:25 Assessment/Plan Assessment/Plan S/P L knee arthroplasty PHILLIP -BiPAP QHS and PRN -PAP therapy was not used last night secondary to nausea DM Constipation Asthma Murmur - Echo 2011 showed EF 55-60% and mild mitral and tricuspid regurgitation Afib -Cardiology following hypothyroid EVELYN FROST DO Jul 05, 2019 07:24
[2019-07-05] MEDS ORDERED: ENOXAPARIN 30 MG/0.3 ML (LOVENOX) SYR SC SCH (07:30)
--- NOTE | 2019-07-05 07:49 | Anesthesia-General Post-Op ---
General Patient Condition Mental Status/LOC: Same as Preop Cardiovascular: Satisfactory Nausea/Vomiting: Absent Respiratory: Satisfactory Pain: Controlled Complications: Absent Post Op Complications Complications None Follow Up Care/Instructions Patient Instructions None needed. Anesthesia/Patient Condition Patient Condition Patient is doing well, no complaints, stable vital signs, no apparent adverse anesthesia problems. No complications reported per nursing. CELENA SAAVEDRA CRNA Jul 05, 2019 07:49
--- NOTE | 2019-07-05 07:52 | NUR ---
O2 REMOVED PER ORDER, WILL RECHECK SATS IN
--- NOTE | 2019-07-05 07:54 | NUR ---
O2 REMOVED PER ORDER, WILL RECHECK O2 SATS
--- NOTE | 2019-07-05 07:59 | Progress Note ---
Standard Progress Note Progress Notes/Assess & Plan Date Seen by a Provider: Jul 05, 2019 Time Seen by a Provider: 07:57 Progress/Assessment & Plan Post op check no complaints radiographs--HW well positioned without fracture LLE--sy pulses with brisk cap refill. Intact DF and PF of toes and ankle with intact sensation throughout s/p LTKA mobilize as able Final Diagnosis feeling better Vital Signs Date Time Temp Pulse Resp B/P (MAP) Pulse Ox O2 Delivery O2 Flow Rate FiO2 07/05/19 07:10 98 Nasal Cannula 3.00 07/05/19 07:00 71 07/05/19 07:00 18 07/05/19 04:00 36.6 63 18 188/72 (110) 100 Room Air 07/05/19 01:00 57 07/05/19 00:34 37.4 67 20 157/69 (98) 98 Room Air 07/04/19 21:02 98 Nasal Cannula 3.00 07/04/19 20:10 74 07/04/19 20:00 37.0 77 18 162/70 (100) 98 Room Air 07/04/19 19:40 Room Air 07/04/19 18:20 78 166/66 (99) 07/04/19 17:33 Nasal Cannula 3.00 07/04/19 16:53 Nasal Cannula 3.00 07/04/19 16:00 36.6 76 18 173/66 (101) 98 Room Air 07/04/19 12:00 36.5 69 18 146/65 (92) 99 Nasal Cannula 3.00 07/04/19 10:25 36.4 64 18 148/64 (92) 97 Nasal Cannula 3.00 07/04/19 10:20 Nasal Cannula 4 07/04/19 10:20 36.7 20 140/51 (80) 95 Nasal Cannula 3 07/04/19 10:15 Nasal Cannula 4 07/04/19 10:10 20 140/52 (81) 95 Nasal Cannula 3 07/04/19 10:00 20 149/51 (83) 98 OxyMask 3 07/04/19 10:00 OxyMask 6 07/04/19 09:50 20 125/50 (75) 100 OxyMask 4 07/04/19 09:45 OxyMask 6 07/04/19 09:40 20 129/50 (76) 99 OxyMask 6 07/04/19 09:30 OxyMask 6 07/04/19 09:30 20 135/48 (77) 100 OxyMask 10 07/04/19 09:20 20 135/48 (77) 100 OxyMask 6 07/04/19 09:16 36.7 20 130/44 (72) 100 OxyMask 6 07/04/19 09:16 OxyMask 6 I & O 07/05/19 07:00 Intake Total 3715 ml Output Total 1200 ml Balance 2515 ml Laboratory Tests Test 07/04/19 09:31 07/04/19 13:26 07/04/19 16:59 07/04/19 19:29 Range/Units Glucometer 354 H 514 *H 455 *H 70-110 MG/DL Sodium Level 138 135-145 MMOL/L Potassium Level 5.6 H 3.6-5.0 MMOL/L Chloride Level 103 98-107 MMOL/L Carbon Dioxide Level 23 21-32 MMOL/L Anion Gap 12 5-14 MMOL/L Blood Urea Nitrogen 34 H 7-18 MG/DL Creatinine 1.50 H 0.60-1.30 MG/DL Estimat Glomerular Filtration Rate 34 BUN/Creatinine Ratio 23 Glucose Level 339 H 70-105 MG/DL Calcium Level 8.9 8.5-10.1 MG/DL Test 07/04/19 20:34 07/05/19 05:41 07/05/19 06:25 Range/Units Glucometer 289 H 144 H 70-110 MG/DL White Blood Count 13.4 H 4.3-11.0 10^3/uL Red Blood Count 3.17 L 4.35-5.85 10^6/uL Hemoglobin 8.5 L 11.5-16.0 G/DL Hematocrit 28 L 35-52 % Mean Corpuscular Volume 88 80-99 FL Mean Corpuscular Hemoglobin 27 25-34 PG Mean Corpuscular Hemoglobin Concent 31 L 32-36 G/DL Red Cell Distribution Width 16.1 H 10.0-14.5 % Platelet Count 275 130-400 10^3/uL Mean Platelet Volume 10.2 7.4-10.4 FL Neutrophils (%) (Auto) 78 H 42-75 % Lymphocytes (%) (Auto) 9 L 12-44 % Monocytes (%) (Auto) 13 H 0-12 % Eosinophils (%) (Auto) 0 0-10 % Basophils (%) (Auto) 0 0-10 % Neutrophils # (Auto) 10.4 H 1.8-7.8 X 10^3 Lymphocytes # (Auto) 1.2 1.0-4.0 X 10^3 Monocytes # (Auto) 1.7 H 0.0-1.0 X 10^3 Eosinophils # (Auto) 0.0 0.0-0.3 10^3/uL Basophils # (Auto) 0.0 0.0-0.1 10^3/uL Sodium Level 137 135-145 MMOL/L Potassium Level 5.1 H 3.6-5.0 MMOL/L Chloride Level 102 98-107 MMOL/L Carbon Dioxide Level 23 21-32 MMOL/L Anion Gap 12 5-14 MMOL/L Blood Urea Nitrogen 38 H 7-18 MG/DL Creatinine 1.57 H 0.60-1.30 MG/DL Estimat Glomerular Filtration Rate 33 BUN/Creatinine Ratio 24 Glucose Level 166 H 70-105 MG/DL Calcium Level 8.9 8.5-10.1 MG/DL Corrected Calcium 9.1 8.5-10.1 MG/DL Magnesium Level 1.9 1.6-2.4 MG/DL Total Bilirubin 0.6 0.1-1.0 MG/DL Aspartate Amino Transf (AST/SGOT) 18 5-34 U/L Alanine Aminotransferase (ALT/SGPT) 16 0-55 U/L Alkaline Phosphatase 110 40-136 U/L Total Protein 7.1 6.4-8.2 GM/DL Albumin 3.7 3.2-4.5 GM/DL LLE--dressing intact. NVI distally. No calf tenderness s/p LTKA PT/OT today. reinforced the importance of OOB today ROSALINA VALDES MD Jul 05, 2019 07:59
[2019-07-05 08:00] VITALS: BP 181/72
[2019-07-05] MEDS: cloNIDine 0.2 MG (CATAPRES) TAB PO SCH (08:11)
[2019-07-05] MEDS: doxAzosin 2 MG (CARDURA) TAB PO SCH (08:11)
[2019-07-05] MEDS: ASPIRIN E.C. 81 MG (ECOTRIN) TAB PO SCH ×2 (08:11→09:37)
[2019-07-05] MEDS: FLECAINIDE 100 MG (TAMBOCOR) TAB PO SCH (08:12)
[2019-07-05] MEDS: SENNA W/DOCUSATE (SENOKOT S) TABLET PO SCH (08:12)
[2019-07-05] MEDS ORDERED: LORATADINE (CLARITIN) 10 MG TAB PO SCH (09:00)
[2019-07-05] MEDS ORDERED: ENALAPRIL 10 MG (VASOTEC) TAB PO SCH (09:00)
[2019-07-05] MEDS ORDERED: NON-FORMULARY MEDICATION 1 EA EA (Cetirizine HCl 10 MG) PO SCH (09:00)
[2019-07-05] MEDS ORDERED: PANTOPRAZOLE 20 MG TABLET (PROTONIX) PO SCH (09:00)
[2019-07-05] MEDS ORDERED: OMEPRAZOLE 20 MG (PriLOSEC) CAP NON-FORMULARY PO SCH (09:00)
--- NOTE | 2019-07-05 09:34 | NUR ---
DR VALDES MESSAGED PER DR HOOKS'S REQUEST REGARDING CONTINUATION OF ELIQUIS
--- NOTE | 2019-07-05 10:00 | Progress Note ---
DARYA CASTRO,MED STUDENT 07/05/19 1000: Subjective Date Seen by a Provider: Jul 05, 2019 Time Seen by a Provider: 08:20 Subjective/Events-last exam Today, Mrs. Durham is improved. She states her nausea has resolved. She is no longer experiencing shortness of breath. Her knee pain is a 7/10 but is improved with elevation and CPM. Review of Systems General: No Chills HEENT: No Head Aches Pulmonary: No Dyspnea, No Cough Cardiovascular: No: Chest Pain Gastrointestinal: Constipation; No: Nausea, Vomiting Musculoskeletal: other (L knee pain) Neurological: No: Numbness Objective Exam Last Set of Vital Signs Vital Signs Date Time Temp Pulse Resp B/P (MAP) Pulse Ox O2 Delivery O2 Flow Rate FiO2 07/05/19 08:57 Room Air 07/05/19 08:00 37.0 80 18 181/72 (108) 92 07/05/19 07:10 3.00 Capillary Refill : Less Than 3 SecondsLess Than 3 Seconds I&O Intake and Output 07/05/19 00:00 Intake Total 2305 ml Output Total 1100 ml Balance 1205 ml Intake Oral 980 ml IV Total 1325 ml Output Urine Total 800 ml Emesis 300 ml # Emeses 1 Daily Weight Change No No General: Alert, Oriented X3 HEENT: PERRLA, EOMI, Mucous Memb Moist/[place] Lungs: Other (expiratory wheeze ) Heart: Regular Rate, Other (systolic murmur) Abdomen: Normal Bowel Sounds, Soft, No Tenderness Skin: Other (dressing intact over left knee) Psych/Mental Status: Mental Status NL, Mood NL Results Lab Laboratory Tests 07/04/19 13:26: Glucometer 514*H 07/04/19 16:59: Glucometer 455*H 07/04/19 19:29: Sodium Level 138, Potassium Level 5.6H, Chloride Level 103, Carbon Dioxide Level 23, Anion Gap 12, Blood Urea Nitrogen 34H, Creatinine 1.50H, Estimat Glomerular Filtration Rate 34, BUN/Creatinine Ratio 23, Glucose Level 339H, Calcium Level 8.9 07/04/19 20:34: Glucometer 289H 07/05/19 05:41: Glucometer 144H 07/05/19 06:25: White Blood Count 13.4H, Red Blood Count 3.17L, Hemoglobin 8.5L, Hematocrit 28L, Mean Corpuscular Volume 88, Mean Corpuscular Hemoglobin 27, Mean Corpuscular Hemoglobin Concent 31L, Red Cell Distribution Width 16.1H, Platelet Count 275, Mean Platelet Volume 10.2, Neutrophils (%) (Auto) 78H, Lymphocytes (%) (Auto) 9L , Monocytes (%) (Auto) 13H, Eosinophils (%) (Auto) 0, Basophils (%) (Auto) 0, Neutrophils # (Auto) 10.4H, Lymphocytes # (Auto) 1.2, Monocytes # (Auto) 1.7H, Eosinophils # (Auto) 0.0, Basophils # (Auto) 0.0, Sodium Level 137, Potassium Level 5.1H, Chloride Level 102, Carbon Dioxide Level 23, Anion Gap 12, Blood Urea Nitrogen 38H, Creatinine 1.57H, Estimat Glomerular Filtration Rate 33, BUN/Creatinine Ratio 24, Glucose Level 166H, Calcium Level 8.9, Corrected Calcium 9.1, Magnesium Level 1.9, Total Bilirubin 0.6, Aspartate Amino Transf (AST/SGOT) 18, Alanine Aminotransferase (ALT/SGPT) 16, Alkaline Phosphatase 110, Total Protein 7.1, Albumin 3.7 Assessment/Plan Assessment/Plan Assess & Plan/Chief Complaint Assessment: S/P L knee arthroplasty - POD 1 DM Constipation Asthma Murmur - Echo 2011 showed EF 55-60% and mild mitral and tricuspid regurgitation PHILLIP Plan: Continue bowel regimen Mobility as tolerated and directed by Dr. Pagan Evaluation for IRF CPAP for PHILLIP lovenox for DVT prophylaxis Cariology and pulmonology consulted Clinical Quality Measures DVT/VTE Risk/Contraindication: Risk Factor Score Per Nursin RFS Level Per Nursing on Admit: 4+=Very High BRITTANY HOOKS DO 07/05/19 2008: Subjective Subjective/Events-last exam Patient doing much better Nausea resolved Pain is an issue Slow recovery noted so will recommend IRF Checked meds and labs Review of Systems General: Fatigue Musculoskeletal: leg pain Objective Exam General: Alert, Oriented X3, Cooperative, No Acute Distress Lungs: Other (expiratory wheeze ) Heart: Regular Rate, Normal S1, Normal S2, No Murmurs Psych/Mental Status: Mental Status NL Assessment/Plan Assessment/Plan Assess & Plan/Chief Complaint IRF Updated patient and nurse and Dr Pagan Supervisory-Addendum Brief Verification & Attestation Participated in pt care: history, MDM, physical Personally performed: exam, history, MDM, supervision of care Care discussed with: Medical Student Procedures: n/a Results interpretation: Verified all documentation Verification and Attestation of Medical Student E/M Service A medical student performed and documented this service in my presence. I reviewed and verified all information documented by the medical student and made modifications to such information, when appropriate. I personally performed the physical exam and medical decision making. Brittany Hooks, Jul 05, 2019,20:07 DARYA CASTRO MED STUDENT Jul 05, 2019 10:00 BRITTANY HOOKS DO Jul 05, 2019 20:08
--- NOTE | 2019-07-05 10:36 | Physical Therapy Daily Note ---
PT Daily Note-Current Subjective Patient is agreeable to therapy at this time. Pain Numeric Pain Scale: 10-Worst Possible Pain Location: Left Location Body Site: Knee Appearance Patient in recliner with call light and bedside table within reach. Mental Status Attachments: [place]gado Catheter, Polar Pack, IV Transfers SCALE: Activities may be completed with or without assistive devices. 9-Kpayurxrly-blslgdm completes the activity by him/herself with no assistance from a helper. 5-Set-up or Clean-up Assistance-helper sets up or cleans up; patient completes activity. [place] assists only prior to or following the activity. 4-Supervision or Touching Assistance-helper provides verbal cues and/or touching/steadying and/or contact guard assistance as patient completes activity. Assistance may be provided throughout the activity or intermittently. 3-Partial/Moderate Assistance-helper does LESS THAN HALF the effort. [place] lifts, holds or supports trunk or limbs, but provides less than half the effort. 2-Substantial/Maximal Assistance-helper does MORE THAN HALF the effort. [place] lifts or holds trunk or limbs and provides more than half the effort. 5-Mwkummakg-qqroqi does ALL the effort. Patient does none of the effort to complete the activity. Or, the assistance of 2 or more helpers is required for the patient to complete the activity. If activity was not attempted, code reason: 7-Patient Refused. 9-Not Applicable-not attempted and the patient did not perform the activity before the current illness, exacerbation or injury. 10-Not Attempted due to Environmental Limitations-(lack of equipment, weather restraints, etc.). 88-Not Attempted due to Medical Conditions or Safety Concerns. Roll Left & Right (QC): 6 Lying to Sitting/Side of Bed(Q: 3 Sit to Stand (QC): 4 Chair/Vwm-oe-Afrwg Xfer(QC): 4 Weight Bearing Left Lower Extremity: Left Weight Bearing/Tolerated Gait Training Does the Patient Walk?: Yes Distance: 50' Walk 10 feet (QC): 4 Walk 50 ft with 2 Turns(QC): 4 Gait Assistive Device: FWW CGA for safety. Wheelchair Training Does the Pt Use a Wheelchair?: No Exercises Supine Ex: Ankle pumps, Quad Set, Heel Slides, Short Arc Quads, Straight leg raise Supine Reps: 10 (LLE only) Treatments LLE exercises, bed mobility, transfers, ambulation. Assessment Current Status: Good Progress Patient tolerated exercises well and only needed assistance with SLR, all other exercises were AROM. Patient was steady during ambulation but fatigued quickly and got SOB. Patient ceased ambulation due to this. PT Stock Roller Goals Nursing Home Goals PT Stock Roller Goals Time Frame: Jul 07, 2019 Roll Left & Right (QC): 6 Sit to Lying (QC): 6 Lying-Sitting on Side/Bed(QC): 6 Sit to Stand (QC): 6 Chair/Suh-mc-Qcmgx Xfer(QC): 6 Does the Patient Walk: Yes Walk 10 feet (QC): 6 Walk 50ft with 2 Turns (QC): 6 PT Plan Problem List Problem List: Activity Tolerance, Functional Strength, Safety, Balance, Gait, Transfer, Bed Mobility, ROM Treatment/Plan Treatment Plan: Continue Plan of Care Treatment Plan: Bed Mobility, Education, Functional Activity Devika, Functional Strength, Gait, Safety, Therapeutic Exercise, Transfers Treatment Duration: Jul 07, 2019 Frequency: 11 times per week Estimated Hrs Per Day: .25 hour per day Patient and/or Family Agrees t: Yes Safety Risks/Education Patient Education: Gait Training, Transfer Techniques Teaching Recipient: Patient Teaching Methods: Discussion Response to Teaching: Reinforcement Needed Time/GCodes Time In: 948 Time Out: 1014 Total Billed Treatment Time: 26 Total Billed Treatment 1 visit EX 13 GT 13 KAIT PENA PT Jul 05, 2019 10:36
--- NOTE | 2019-07-05 10:36 | Progress Note - Cardiology ---
Cardiology SOAP Progress Note Subjective: No cp or palp or syncope Nausea better but not resolved Notes gen malaise Appetite poor No focal weakness Objective: I&O/Vital Signs 07/05/19 07/05/19 07/05/19 07/05/19 00:34 01:00 04:00 07:00 Temp 37.4 36.6 Pulse 67 57 63 Resp 20 18 18 B/P (MAP) 157/69 (98) 188/72 (110) Pulse Ox 98 100 O2 Delivery Room Air Room Air 07/05/19 07/05/19 07/05/19 07/05/19 07:00 07:10 08:00 08:57 Temp 37.0 Pulse 71 80 Resp 18 B/P (MAP) 181/72 (108) Pulse Ox 98 92 O2 Delivery Nasal Cannula Room Air Room Air O2 Flow Rate 3.00 07/05/19 00:00 Intake Total 1290 ml Output Total 1100 ml Balance 190 ml Weight (Pounds): 226 Weight (Ounces): 4.0 Weight (Calculated Kilograms): 102.144010 Constitutional: AAO x 3, well-nourished Respiratory: No accessory muscle use, No respiratory distress; chest expansion is symmetric, chest is bilaterally symmetric, lungs clear to auscultation Cardiovascular: regular rate-rhythm; No JVD; S1 and S2 Gastrointestional: No tender; soft; No guarding; audible bowel sounds Extremities: other (dressing to left knee not removed), no lower extremity edema bilateral Neurologic/Psychiatric: other (moves extremities; left leg post surgical not manipulated) Skin: No rash on exposed areas, No ulcerations on exposed areas Results/Procedures: Labs Laboratory Tests 07/04/19 13:26: Glucometer 514*H 07/04/19 16:59: Glucometer 455*H 07/04/19 19:29: Sodium Level 138, Potassium Level 5.6H, Chloride Level 103, Carbon Dioxide Level 23, Anion Gap 12, Blood Urea Nitrogen 34H, Creatinine 1.50H, Estimat Glomerular Filtration Rate 34, BUN/Creatinine Ratio 23, Glucose Level 339H, Calcium Level 8.9 07/04/19 20:34: Glucometer 289H 07/05/19 05:41: Glucometer 144H 07/05/19 06:25: White Blood Count 13.4H, Red Blood Count 3.17L, Hemoglobin 8.5L, Hematocrit 28L, Mean Corpuscular Volume 88, Mean Corpuscular Hemoglobin 27, Mean Corpuscular Hemoglobin Concent 31L, Red Cell Distribution Width 16.1H, Platelet Count 275, Mean Platelet Volume 10.2, Neutrophils (%) (Auto) 78H, Lymphocytes (%) (Auto) 9L , Monocytes (%) (Auto) 13H, Eosinophils (%) (Auto) 0, Basophils (%) (Auto) 0, Neutrophils # (Auto) 10.4H, Lymphocytes # (Auto) 1.2, Monocytes # (Auto) 1.7H, Eosinophils # (Auto) 0.0, Basophils # (Auto) 0.0, Sodium Level 137, Potassium Level 5.1H, Chloride Level 102, Carbon Dioxide Level 23, Anion Gap 12, Blood Urea Nitrogen 38H, Creatinine 1.57H, Estimat Glomerular Filtration Rate 33, BUN/Creatinine Ratio 24, Glucose Level 166H, Calcium Level 8.9, Corrected Calcium 9.1, Magnesium Level 1.9, Total Bilirubin 0.6, Aspartate Amino Transf (AST/SGOT) 18, Alanine Aminotransferase (ALT/SGPT) 16, Alkaline Phosphatase 110, Total Protein 7.1, Albumin 3.7 Laboratory Tests 07/04/19 19:29 07/05/19 06:25 A/P: Assessment: Intractable n/v - management per Surgical and Hospitalist services S/P total left knee arthroplasty on 07-04-[address] Pagan Hypertension, not well controlled Paroxysmal atrial flutter/fibrillation currently controlled on therapy with flecainide. This has been managed by Dr Eid in EP consult in [place], [place] Echo of Jun 26, 2018 LVEF 60-65%. LA mildly dilated. Mild MR. PASP 30 mmHg Chronic Eliquis anticoag No angiographically significant coronary artery disease. Normal global left ventricular systolic function, no significant mitral regurgitation, and normal left ventricular end-diastolic pressure on cardiac catheterization in October 2011. MPI of Jun 06, 2018 showed no evidence of any significant myocardial ischemia or infarction. LVEF 74% H/O Hypertension Maturity onset diabetes mellitus, being followed by her Marine Tower Operator, Dr. Farias. Hypothyroidism being treated with thyroid replacement therapy. Potassium level at the top limits of normal to minimally elevated. Cessation of ISATU inhibitors does not seem to have changed this very much. Her company pilot has advised continuing ISATU-inhib therapy Hyperlipidemia being treated with statins and being followed by her Marine Tower Operator, Dr. Farias Mild bilat internal carotid dz per u/s of July 2018 Elevated BMI of approx 38 PHILLIP diagnosed on sleep study of 07/17/16, being followed by Dr Bonds Plan: * Resume meds. Hold ISATU-inhib for now (K somewhat higher than her usual) * Continue Lovenox - resume OAC with Eliquis as soon as possible d/t known h/o a-fib for stroke prophylaxis * Monitor labs * I discussed her CV issues with her CHARLES LINN MD FACP FACC CCDS Jul 05, 2019 10:35
[2019-07-05] MEDS ORDERED: hydrALAZINE (APESOLINE) 20 MG/ML VIAL IV PRN (11:15)
[2019-07-05 12:00] VITALS: BP 176/75
--- NOTE | 2019-07-05 16:45 | NUR ---
CM/SS visited with the patient for discharge planning. Plan: patient to inpatient rehab. Home Health: The patient had her R knee done in the past and used [facility] and chose to work with them again if needed. CM/SS sent referral before Inpatient Rehab excepted. CM/SS will call [facility] and let them know she will not be discharging home yet. DME: Via [facility]3]. Does not need a walker due to already having one. No other needs.
[2019-07-05] MEDS ORDERED: APIXABAN 5 MG (ELIQUIS) TABLET PO SCH (18:00)
--- NOTE | 2019-07-06 02:54 | DISCHARGE SUMMARY ---
DATE OF SERVICE: 07/05/2019 DIAGNOSES: 1. Left knee primary osteoarthritis. 2. Atrial fibrillation. 3. Asthma. 4. Diabetes mellitus. PROCEDURE: Left total knee arthroplasty. SUMMARY: The patient is a 69-year-old female who underwent a left total knee arthroplasty the night of admission. Postoperatively, she was progressing well. She was tolerating her diet. CONDITION AT DISCHARGE: Good. DISCHARGE DIET: Diabetic. DISCHARGE DISPOSITION: Transferred to the inpatient rehabilitation unit for continued physical and occupational therapy. Job ID: [id number] DocumentID: [id number] Dictated Date: 07/05/2019 16:08:53 Cd Reactor Operator Head Date: 07/06/2019 02:53:41 Dictated By: ROSALINA VALDES MD
[2019-07-07] MEDS ORDERED: SCOPOLAMINE PATCH REMOVAL TP NR (13:45)
== END 2019-07-05 12:00 | DRG 470 ==
LOC: 4TH 05:56 → SURG 05:57 → 4TH 10:20
PROVIDERS: ADMIT Orthopaedic Surgery; ATTEND Orthopaedic Surgery
PROC: 0SRD0J9 Replacement of Left Knee Joint with Synthetic Substitute, Cemented, Open Approach (ICD-10-PCS; principal; 2019-07-04 07:32)
DX: M17.12 Unilateral primary osteoarthritis, left knee (principal); I48.0 Paroxysmal atrial fibrillation; J45.909 Unspecified asthma, uncomplicated; E11.65 Type 2 diabetes mellitus with hyperglycemia; E78.00 Pure hypercholesterolemia, unspecified; I10 Essential (primary) hypertension; E03.9 Hypothyroidism, unspecified; K21.9 Gastro-esophageal reflux disease without esophagitis; K59.09 Other constipation; R01.1 Cardiac murmur, unspecified; I08.1 Rheumatic disorders of both mitral and tricuspid valves; G47.33 Obstructive sleep apnea (adult) (pediatric); R33.9 Retention of urine, unspecified; R11.2 Nausea with vomiting, unspecified; I95.9 Hypotension, unspecified; E78.5 Hyperlipidemia, unspecified; I65.23 Occlusion and stenosis of bilateral carotid arteries; Z96.651 Presence of right artificial knee joint; Z79.01 Long term (current) use of anticoagulants; Z79.4 Long term (current) use of insulin
CPT/HCPCS: 36415; 71045; 73560; 80048; 80053; 82962; 83540; 83735; 85025; 85027; 93005; 94640; 94664; 94760

== ENCOUNTER 2019-07-05 10:36 | Inpatient (IN) | payer MEDICARE, OTHER ==
[~2019-07-05] VITALS: Ht 165.1 cm; Wt 112.1 kg
[~2019-07-05 10:36] MED LIST changes: -MONT10TA24 PO; +MONT10TA26 PO; -OMEP-280 PO; +OMEP20CA18 PO
--- NOTE | 2019-07-05 11:16 | Physical Therapy Evaluation ---
PT Evaluation-General Medical Diagnosis Admission Date 07/05/2019 Medical Diagnosis: OA left knee Onset Date: Jul 05, 2019 Therapy Diagnosis Therapy Diagnosis: abnormal gait Height/Weight Height (Feet): 5 Height (Inches): 5.00 Weight (Pounds): 226 Weight (Ounces): 4.0 Precautions Precautions/Isolations: Standard Precautions Weight Bear Status Right Lower Extremity: Right Full Weight Bearing Left Lower Extremity: Left Weight Bearing/Tolerated Referral Physician: Destinee Reason for Referral: Evaluation/Treatment Medical History Pertinent Medical History: Atrial Fib, DM Additional Medical History Right TKR August 2018 Current History Pt was recently hospitalized on acute post elective left TKR; surgery performed due to failed conservative treatment. Pt transferred to ARU for continued skilled therapy services and medical management. Reviewed History: Yes Social History Home: Single Level Current Living Status: Spouse Entry Into Home: Stairs With Railing PT Steps Into Home: 3 Prior Prior Level of Function SCALE: Activities may be completed with or without assistive devices. 6-Ouncckjtac-htfimtl completes the activity by him/herself with no assistance from a helper. 5-Set-up or Clean-up Assistance-helper sets up or cleans up; patient completes activity. [place] assists only prior to or following the activity. 4-Supervision or Touching Assistance-helper provides verbal cues and/or touching/steadying and/or contact guard assistance as patient completes activity. Assistance may be provided throughout the activity or intermittently. 3-Partial/Moderate Assistance-helper does LESS THAN HALF the effort. [place] lifts, holds or supports trunk or limbs, but provides less than half the effort. 2-Substantial/Maximal Assistance-helper does MORE THAN HALF the effort. [place] lifts or holds trunk or limbs and provides more than half the effort. 2-Lhundlvql-tqitan does ALL the effort. Patient does none of the effort to complete the activity. Or, the assistance of 2 or more helpers is required for the patient to complete the activity. If activity was not attempted, code reason: 7-Patient Refused. 9-Not Applicable-not attempted and the patient did not perform the activity b efore the current illness, exacerbation or injury. 10-Not Attempted due to Environmental Limitations-(lack of equipment, weather restraints, etc.). 88-Not Attempted due to Medical Conditions or Safety Concerns. Bed Mobility: 6 Transfers (B,C,W/C): 6 Gait: 6 (cane for ambulation) Stairs: 6 Indoor Mobility (Ambulation): Independent Stairs: Independent Prior Device Use: pt used a cane at home; she also has a walker Pt is a community ambulator at [facility]; reports she does not drive; indep with self care and housework. PT Evaluation-Current Subjective Pt agreeable to PT. Reports she has been nauseated since surgery. Pain Numeric Pain Scale: 7 Location: Left Location Body Site: Knee Pain Description: Ache, Dull, Pressure Pt/Family Goals Return home with her as before. Objective Patient Orientation: Person, Place, Time, Situation Attachments: [place] Catheter, IV ROM/Strength ROM Lower Extremities Right LE WFL; left knee 0-10-80 degrees AAROM Integumentary/Posture Integumentary refer to nursing notes. Bowel Incontinence: No Bladder Incontinence: [place] Cath Posture symmetrical and forward flexed at hips in standing. Neuromuscular (Tone, Coordination, Reflexes) intact and without functional deficits Sensory Vision: Wears Glasses Hearing: Functional Hand Dominance: Right Sensation Right Lower Extremit: Intact Sensation Left Lower Extremity: Intact Transfers Roll Left to Right (QC): 3 Sit to Lying (QC): 3 (assist with left leg to get into bed.) Lying to Sitting/Side of Bed(Q: 3 (assist with left leg) Sit to Stand (QC): 2 (max assist with skilled cues for hand placement and sequencing.) Chair/Jeu-pc-Svimm Xfer(QC): 3 Toilet Transfer: 88 ([place] catheter) Car Transfer (QC): 88 (unable to attempt this date; functional mobility limited and difficult) Gait Does the Patient Walk?: Yes Mode of Locomotion: Walk Anticipated Mode of Locomotion: Walk Walk 10 feet (QC): 3 (min assist for balance and safety) Walk 50 ft with 2 Turns(QC): 3 (min assist for balance and safety) Walk 150 ft (QC): 88 (unableto walk this distance) Walking 10ft/uneven surface-QC: 88 (unsafe to attempt) Gait Assistive Device: FWW Comments/Gait Description wide IRLANDA with forward flexion at hips; decreased step length and foot clearance; slow and antalgic; heavy reliance on FWW Wheelchair Training Does the Pt Use a Wheelchair?: No Stairs 1 Step (curb) (QC): 88 4 Steps (QC): 88 12 Steps (QC): 88 unsafe to attempt steps this date. Balance Sitting Static: Good Sitting Dynamic: Good Standing Static: Fair Standing Dynamic: Fair Picking up an Object (QC): 88 Treatment Multiple sit to stand transfers; bed mobilty training, gait training with focus on posture and safety L LE ther ex x 10 for AP, QS, Heel slide and SAQ Assessment/Needs Post elective left TKR needing asssit with functional bed mobility, transfers and gait due to strength, ROM and balance deficits. She will benefit from skilled PT to address these deficits to allow her to return home at a mod indep level. Rehab Potential: Good PT Short Term Goals Short Term Goals Time Frame: Jul 12, 2019 Sit to lyin Lying to sitting on side of be: 4 Sit to stand: 4 Walk 150 feet: 4 PT Long-Term Goals Long-Term Goals PT Bag Sewer Goals Time Frame: Jul 19, 2019 Roll Left & Right (QC): 6 Sit to Lying (QC): 6 Lying-Sitting on Side/Bed(QC): 6 Sit to Stand (QC): 6 Chair/Vlb-iu-Fwzqn Xfer(QC): 6 Toilet Transfer (QC): 6 Car Transfer (QC): 5 Does the Patient Walk: Yes Walk 10 feet (QC): 6 Walk 50ft with 2 Turns (QC): 6 Walk 150 ft (QC): 6 Walking 10ft on Uneven Surface: 5 1 Step (curb) (QC): 5 4 Steps (QC): 5 12 Steps (QC): 9 Picking up an Object (QC): 9 Does the Pt use WC or Scooter?: No PT Plan Problem List Problem List: Activity Tolerance, Functional Strength, Safety, Balance, Gait, Transfer, Bed Mobility, ROM Treatment/Plan Treatment Plan: Continue Plan of Care Treatment Plan: Bed Mobility, Education, Functional Activity Devika, Functional Strength, Group Therapy, Gait, Safety, Therapeutic Exercise, Transfers Treatment Duration: Jul 19, 2019 Frequency: At least 5 of 7 days/Wk (IRF) Estimated Hrs Per Day: 1.5 hours per day Patient and/or Family Agrees t: Yes Safety Risks/Education Patient Education: Transfer Techniques, Safety Issues Teaching Recipient: Patient Teaching Methods: Discussion Response to Teaching: Reinforcement Needed Discharge Recommendations Therapy Discharge Recommendati: Post Acute PT Time/GCodes Time In: 1205 Time Out: 1335 Total Billed Treatment Time: 90 Total Billed Treatment visit EVM 15 FA 60 EX 15 DEVEN HERNANDEZ PT Jul 05, 2019 11:16
[2019-07-05 12:00] VITALS: BP 163/62
--- NOTE | 2019-07-05 12:00 | NUR ---
SCRIPT AND REPORT GIVEN TO ELIZABETH FRANCE
--- NOTE | 2019-07-05 12:00 | NUR ---
BERNADETTE FLOREZ admitted to room 224-1, with an admitting diagnosis of POST LEFT TKR, on 07/05/19 from via , accompanied by STAFF.BERNADETTE FLOREZ introduced to surroundings, call light, bed controls, phone, TV, temperature control, lights, meal times, smoking policy, visitor policy, side rail policy, bathrooms and showers. Patient Rights given to patient in the handbook.BERNADETTE FLOREZ verbalizes understanding that [facility] is not responsible for the loss or damage to any personal effects or valuables that are kept in the patients posession during their hospitalization. The following Patient Care Plans were discussed with the PT: Discharge Planning, IMPAIRED MOBILITY, AND POST OP. BERNADETTE FLOREZ verbalizes understanding of Interdisciplinary Patient Education. Patient received Patient Rights Booklet, which includes Privacy Act Statement and Data Collection Information Summary. IV FLUIDS AND SPICE GRINDER DC'D. MEDICATED WITH PERCOCET. UP IN CHAIR EATING LUNCH.
[2019-07-05] MEDS ORDERED: BISACODYL 10 MG SUPP (DULCOLAX) PR PRN (12:15)
[2019-07-05] MEDS ORDERED: ONDANSETRON 4 MG (ZOFRAN) ORAL DISSOLVE TAB PO PRN (12:15)
[2019-07-05] MEDS ORDERED: ALPRAZolam 0.25 MG (XANAX) TAB PO PRN (12:15)
[2019-07-05] MEDS ORDERED: LACTULOSE SYRUP 10GM/15ML (ENULOSE) 30ML UDC PO PRN (12:15)
[2019-07-05] MEDS ORDERED: FLEET ENEMA ADULT 1 EA BTL PR PRN (12:15)
[2019-07-05] MEDS ORDERED: DOCUSATE SODIUM 100 MG (COLACE) CAP PO PRN (12:15)
[2019-07-05] MEDS ORDERED: LOPERAMIDE 2 MG (IMODIUM) TABLET PO PRN (12:15)
[2019-07-05] MEDS ORDERED: MELATONIN 3 MG TABLET PO PRN (12:15)
[2019-07-05] MEDS ORDERED: diphenhydrAMINE 25 MG TAB (BENADRYL) PO PRN (12:15)
[2019-07-05] MEDS ORDERED: guaiFENesin/CODEINE (ROBITUSSIN AC) 10ML UDC PO PRN (12:15)
[2019-07-05] MEDS ORDERED: ONDANSETRON 4 MG/2 ML (SDV) Z0FRAN IVP PRN (12:45)
[2019-07-05] MEDS ORDERED: ACETAMINOPHEN 325 MG TABLET PO PRN (12:45)
[2019-07-05] MEDS ORDERED: hydrALAZINE (APESOLINE) 20 MG/ML VIAL IV PRN (12:45)
[2019-07-05] MEDS ORDERED: PATIENT MAY USE OWN MEDS, ALL MC SCH (12:45)
[2019-07-05] MEDS ORDERED: diphenhydrAMINE 50 MG/ML INJ (BENADRYL) IVP PRN (12:45)
[2019-07-05] MEDS ORDERED: PROMETHAZINE INJ 25 MG/ML (PHENERGAN) AMP IM PRN (12:45)
[2019-07-05] MEDS: oxyCODONE/APAP 5/325MG (PERCOCET 5) TABLET PO PRN ×2 (13:16→17:31)
--- NOTE | 2019-07-05 14:49 | Occupational Therapy Eval ---
OT Evaluation-General/PLF Medical Diagnosis Admission Date Jul 05, 2019 at 12:00 Medical Diagnosis: OA left knee Onset Date: Jul 05, 2019 Therapy Diagnosis Therapy Diagnosis: impaired ADLs/functional mobility. Height/Weight Height (Feet): 5 Height (Inches): 5.00 Weight (Pounds): 226 Weight (Ounces): 4.0 Precautions Precautions/Isolations: Standard Precautions Referral Physician: Destinee Referral Reason: Activity Tolerance, Self Care, Evaluation/Treatment, Strengthening/ROM Medical History Pertinent Medical History: Atrial Fib, DM Additional Medical History asthma, hysterectomy, R TKA (August 2018), Bilateral knee arthroscopy, R breast cyst excision Current History Pt has had progressively worsening L knee pain. Radiographs reveal severe tricompartment OA. She trialed injections, arthroscopy, anti-inflammatories, and activity modifications but still reports progressive functional impairements. She elected for surgical intervention with surgery on 07/04/2019. She was admitted acutely post surgery, transferring to ARU on 07/05/2019. Social History Home: Single Level Current Living Status: Spouse Entry Into Home: Stairs With Railing Steps Into Home: 3 ADL-Prior Level of Function SCALE: Activities may be completed with or without assistive devices. 8-Ekdbkdsajm-jujrtsn completes the activity by him/herself with no assistance from a helper. 5-Set-up or Clean-up Assistance-helper sets up or cleans up; patient completes activity. Bicknell assists only prior to or following the activity. 4-Supervision or Touching Assistance-helper provides verbal cues and/or touching/steadying and/or contact guard assistance as patient completes activ ity. Assistance may be provided throughout the activity or intermittently. 3-Partial/Moderate Assistance-helper does LESS THAN HALF the effort. Bicknell lifts, holds or supports trunk or limbs, but provides less than half the effort. 2-Substantial/Maximal Assistance-helper does MORE THAN HALF the effort. Bicknell lifts or holds trunk or limbs and provides more than half the effort. 9-Ofpienqia-eqjtmf does ALL the effort. Patient does none of the effort to complete the activity. Or, the assistance of 2 or more helpers is required for the patient to complete the activity. If activity was not attempted, code reason: 7-Patient Refused. 9-Not Applicable-not attempted and the patient did not perform the activity before the current illness, exacerbation or injury. 10-Not Attempted due to Environmental Limitations-(lack of equipment, weather restraints, etc.). 88-Not Attempted due to Medical Conditions or Safety Concerns. ADL PLOF Comments Pt reports being independent with all ADLs/functional mobility prior to elective surgery. She reported increased pain in her left knee but she was still able to complete dressing, bathing and cleaning although her primarily cooks all the meals. She typically takes her shower standing up, she has a shower chair but feels unsafe transferring on/off of it. She has one grab bar by the shower. She uses a cane for ambulation. Self Care: Independent Functional Cognition: Independent DME/Equipment: Bath Chair, Grab Bars, Shower (walkin) DME/Equipment Comments cane Leisure Interests: Pt reports she doesn't really have any hobbies, she likes to just watch TV OT Current Status Subjective Pt seated in recliner at start of session, agreed to OT evaluation and Tx. She verbalized pain as 8/10 when her recliner was lowered, and 3/10 at rest. Mental Status/Objective Patient Orientation: Person, Place, Time, Situation Attachments: Delgado Catheter, IV, Polar Pack, Telemetry Current Glasses/Contacts: Yes (reading) Hearing Aids: No Dentures/Partials: No Hand Dominance: Right Upper Extremity ROM WFL. BUE flexion approx 160 degrees Upper Extremity Coordination WFL Upper Extremity Sensation Pt denies tingling/numbness BUES Upper Extremity Strength grossly 4/5 MMT ADL-Treatment Eating (QC): 6 (Per pt report, she was independent eating her lunch. She reported no difficulties opening containers, cutting food, and bringing food to her mouth.) Oral Hygiene (QC): 5 (Pt required set up/clean assist at recliner for task. She was able to put paste on brush and brush her teeth, then bring cup to mouth in order to rinse her mouth out. ) Shower/Bathe Self (QC): 2 (SPONGE BATH - Pt was able to wash her UEs, chest and abdomen. She required assistance washing her back, buttocks, periarea, and RLE. LLE not attempted on this date due to dressing and compression stockings but based on clinical reasoning pt would require assistance with LLE. ) Upper Body Dressing (QC): 3 (Pt able to do hospital gown, and don long sleeve shirt. She threaded her UEs into sleeves and brought shirt overhead. Required assistance with pulling shirt down in back and front.) Lower Body Dressing (QC): 2 (Pt required assistance donning BLE into pants/u nderwear, she helped pull the pants up her leg but required assistance pulling her foot all the way through her pant legs. During stand at FWW, pt required assistance managing pants/underwear up over hips, with skilled cues to maintain balance with task. ) On/Off Footwear (QC): 1 (Pt unable to reach her feet in order to don/doff slipper socks, requiring total assistance with task.) Toileting Hygiene (QC): 2 ([facility] - Pt required assistance with all parts of task. She attempted to manage her clothing up, but was unsteady with task requiring skilled cues to for hand placement on FWW to maintain balance.) Other Treatments Pt seated in recliner, provided information about PLOF and home set up. She co mpleted oral hygiene, sponge bath and dressing at recliner level, then transferred to [facility] with FWW. Sit to/from stands mod assistance, pt required skilled cues for hand placement and sequencing of transfers. Pt transferred to the [facility] with Min A for balance, then required x2 assistance to transfer from [facility] to recliner using FWW due to fatigue and decreased functional endurance. Pt b rushed her hair with set up assistance. She then removed beads from red theraputty in order to increase fine motor strength and functional endurance with task. Pt required mod cues during session in order to take rest breaks and instruction to take deep breaths during task. Post OT session, pt seated upright in recliner, call light in reach and all needs met. Education OT Patient Education: Correct positioning, Energy conservation, Exercise program, Modified ADL techniques, Progress toward Goal/Update tx plan, Purpose of tx/functional activities, Safety issues, Transfer techniques Teaching Recipient: Patient Teaching Methods: Demonstration, Discussion Response to Teaching: Verbalize Understanding, Return Demonstration OT Short Term Goals Short Term Goals Time Frame: Jul 20, 2019 Shower/bathe self: 3 Upper body dressin Lower body dressin OT Outreach Director Goals Outreach Director Goals Time Frame: Jul 27, 2019 Oral Hygiene (QC): 6 Toileting Hygiene (QC): 6 Shower/Bathe Self (QC): 6 Upper Body Dressing (QC): 6 Lower Body Dressing (QC): 6 On/Off Footwear (QC): 6 Additional Goals: 1-Demonstrate ADL Tasks, 2-Verbalize Understanding, 3- ImproveStrength/Devika 1=Demonstrate adherence to instructed precautions during ADL tasks. 2=Patient will verbalize/demonstrate understanding of assistive devices/modifications for ADL. 3=Patient will improve strength/tolerance for activity to enable patient to perform ADL's. OT Education/Plan Problem List/Assessment Assessment: Decreased Activ Tolerance, Decreased Safety Aware, Decreased UE Strength, Impaired Funct Balance, Impaired I ADL's, Impaired Self-Care Skills Discharge Recommendations Plan/Recommendations: Continue POC Therapy Discharge Recommendati: Post Acute OT Treatment Plan/Plan of Care Treatment,Training & Education: Yes Patient would benefit from OT for education, treatment and training to promote independence in ADL's, mobility, safety and/or upper extremity function for ADL's. Plan of Care: ADL Retraining, Caregiver Training, Functional Mobility, Group Exercise/Act as Ind, UE Funct Exercise/Act Treatment Duration: Jul 27, 2019 Frequency: At least 5 of 7 days/Wk (IRF) Estimated Hrs Per Day: 1.5 hours per day Agreement: Yes Rehab Potential: Good Time/GCodes Start Time: 13:35 Stop Time: 15:05 Total Time Billed (hr/min): 90 Billed Treatment Time 1, EVM (15'), FA (15'), ADL 4 (60') JAYA DOMINGUEZ OT Jul 05, 2019 14:49
--- NOTE | 2019-07-05 15:00 | NUR ---
DR. VALDES STATES TO LEAVE KNEE DRESSING ALONE TODAY AND HE WILL CHANGE IN AM.
[2019-07-05 15:15] VITALS: BP 163/62
[2019-07-05] MEDS: RT-ALBUTEROL/IPRATROPIUM 3 ML (DUONEB) VIAL INH SCH ×2 (15:43→22:01)
--- NOTE | 2019-07-05 16:00 | NUR ---
TO BRING IN CPAP TONIGHT.
--- NOTE | 2019-07-05 17:00 | NUR ---
DR. HOOKS NOTIFIED OF CONTINUED HEMATURIA. DR. VICENTE NOTIFIED OF CONSULT. STATES TO ENCOURAGE FLUIDS TONIGHT AND HE WILL SEE IN AM.
[2019-07-05] MEDS: APIXABAN 5 MG (ELIQUIS) TABLET PO SCH (17:13)
[2019-07-05] MEDS: inSUlin ASPART (NovoLOG) 1 UNIT/0.01 ML (CHARGE PER UNIT) SQ SCH ×2 (17:14→21:13)
[2019-07-05] MEDS: CALCIUM CARBONATE 500 MG (TUMS) TAB.CHEW PO PRN ×2 (17:31→22:29)
[2019-07-05 18:00] VITALS: BP 175/73
--- NOTE | 2019-07-05 18:04 | PM&R Post Admission Assessment ---
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 Patient has multiple medical issues which require close monitoring including labile DM, PHILLIP with acute wheezing currently, and hematuria with davenport cath placement requiring Urology consultation. Vishnu Dunlap and Cammie are providing consultation services also. She sees Endocrinology in [place]. Patient had severe post op N/V which is now resolved but had delayed her ambulation following surgery. Eliquis has now replaced Lovenox to restart her home meds and patient's sugar had been extremely elevated requiring BMP the night before to assure she had not transitioned to DKA. Currently patient reports pain but otherwise she is doing a lot better. She lives at home with her and her son brings her to her doctor appointments. Past Ycsnght-Qhvthi-Iqbdhw Hx Past Med/Social Hx: Reviewed Nursing Past Med/Soc Hx, Reviewed and Corrections made Patient Social History Marrital Status: Employed/Student: retired Alcohol Use: Denies Use Recreational Drug Use: No Smoking Status: Never a Smoker 2nd Hand Smoke Exposure: No Physical Abuse Screen: No Sexual Abuse: No Recent Foreign Travel: No Contact w/other who traveled: No Recent Hopitalizations: Yes (LEFT TKR 2-20) Recent Infectious Disease Expo: No Immunizations Up To Date Tetanus Booster (TDap): Less than 5yrs Pediatric: No Date of Pneumonia Vaccine: Feb 21, 2017 Date of Influenza Vaccine: Feb 19, 2019 Seasonal Allergies Seasonal Allergies: No Past Medical History Surgeries: Bladder Surgery, Breast, Hysterectomy, Orthopedic Respiratory: Sleep Apnea Currently Using CPAP: Yes Currently Using BIPAP: No Cardiac: Atrial Fibrillation, High Cholesterol, Hypertension Neurological: Neuropathy 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: No Sexually Transmitted Disease: No HIV/AIDS: No Hysterectomy Gastrointestinal: Chronic Constipation Musculoskeletal: Arthritis Endocrine: Diabetes, Insulin dep Are Your Blood Sugars Over 250: Yes Loss of Vision: Bilateral Hearing Impairment: Denies History of Blood Disorders: No Adverse Reaction to Blood Rub[place]: No (N/A) Family History Arthritis 19 FATHER 19 MOTHER Asthma 19 FATHER Cardiovascular disease 19 FATHER 19 MOTHER Cataracts 19 MOTHER Deafness or hearing loss 19 FATHER Dementia 19 MOTHER Diabetes mellitus G8 SISTER G8 SISTER Glaucoma 19 FATHER Hypertension 19 MOTHER Prostate cancer 19 FATHER Respiratory disorder 19 FATHER Thyroid disease G8 SISTER Asthma, Heart Disease, Diabetes, Hypertension Prior Level of Function Bed Mobility: 6 Transfers: 6 Gait: 6 (cane for ambulation) Stairs: 6 Indoor Mobility (Ambulation): Independent Stairs: Independent pt used a cane at home; she also has a walker Self Care: Independent Functional Cognition: Independent Leisure Interests: Pt reports she doesn't really have any hobbies, she likes to just watch TV Current Level of Fuctioning Roll Left to Right: 3 Sit to Lyin (assist with left leg to get into bed.) Lying to Sitting/Side of Bed: 3 (assist with left leg) Sit to Stand: 2 (max assist with skilled cues for hand placement and sequencing.) Chair/Rnv-kb-Dwiaq Xfer: 3 Car Transfer: 88 (unable to attempt this date; functional mobility limited and difficult) Does the Patient Walk: Yes Mode of Locomotion: Walk Anticipated Mode of Locomotion: Walk Walk 10 feet: 3 (min assist for balance and safety) Walk 50 ft with 2 Turns: 3 (min assist for balance and safety) Walk 150 ft: 88 (unableto walk this distance) Walking 10ft on uneven surface: 88 (unsafe to attempt) Gait Assistive Device: FWW Does the Pt Use a Wheelchair: No 1 Step (curb): 88 4 Steps: 88 12 Steps: 88 Picking up an Object: 88 Eatin (Per pt report, she was independent eating her lunch. She reported no difficulties opening containers, cutting food, and bringing food to her mouth.) Oral Hygiene: 5 (Pt required set up/clean assist at recliner for task. She was able to put paste on brush and brush her teeth, then bring cup to mouth in order to rinse her mouth out. ) Shower/Bathe Self: 2 (SPONGE BATH - Pt was able to wash her UEs, chest and abdomen. She required assistance washing her back, buttocks, periarea, and RLE. LLE not attempted on this date due to dressing and compression stockings but based on clinical reasoning pt would require assistance with LLE. ) Upper Body Dressin (Pt able to [facility] gown, and don long sleeve shirt. She threaded her UEs into sleeves and brought shirt overhead. Required assistance with pulling shirt down in back and front.) Lower Body Dressin (Pt required assistance donning BLE into pants/underwear, she helped pull the pants up her leg but required assistance pulling her foot all the way through her pant legs. During stand at FWW, pt required assistance managing pants/underwear up over hips, with skilled cues to maintain balance with task. ) On/Off Footwear: 1 (Pt unable to reach her feet in order to don/doff slipper socks, requiring total assistance with task.) Toileting Hygiene: 2 ([facility] - Pt required assistance with all parts of task. She attempted to manage her clothing up, but was unsteady with task requiring skil led cues to for hand placement on FWW to maintain balance.) PM&R Allergy/Meds/Data Review Allergies Coded Allergies: insulin detemir (Verified Allergy, Intermediate, RASH, takes Lantus & Humalog at home, 08/23/18) red bumps at insertion site of injection Has received regular insulin & Novolog during previous hospitalization morphine (Verified Adverse Reaction, Intermediate, Vomiting, 07/05/19) Home Medications Scheduled Apixaban (Eliquis), 5 MG PO BID, (Reported) Cetirizine HCl (Cetirizine HCl), 10 MG PO DAILY, (Reported) Clonidine HCl (Clonidine HCl), 0.2 MG PO BID, (Reported) Diltiazem HCl (Cartia Xt), 300 MG PO DAILY, (Reported) Doxazosin Mesylate (Doxazosin Mesylate), 2 MG PO BID, (Reported) Enalapril Maleate (Enalapril Maleate), 10 MG PO DAILY, (Reported) Flaxseed Oil (Flaxseed Oil), 1,000 MG PO DAILY, (Reported) Flecainide Acetate (Flecainide Acetate), 150 MG PO BID, (Reported) Insulin Glargine,Hum.rec.anlog (Toujeo Solostar), 26 UNIT SQ HS, (Reported) Insulin Lispro (Humalog), 0 SQ AC, (Reported) Levothyroxine Sodium (Levothyroxine Sodium), 100 MCG PO DAILY, (Reported) Lutein (Lutein), 6 MG PO DAILY, (Reported) Montelukast Sodium (Montelukast Sodium), 10 MG PO HS, (Reported) Multivitamin (Multivitamins), 1 TAB PO DAILY, (Reported) Omeprazole (Omeprazole), 20 MG PO DAILY, (Reported) Oxycodone HCl/Acetaminophen (Percocet 5-325 mg Tablet), 1 TAB PO Q4H Pravastatin Sodium (Pravastatin Sodium), 40 MG PO DAILY, (Reported) Current Medications Current Medications Reviewed Laboratory Data Laboratory Tests 07/05/19 16:00: Glucometer 185H Review of Systems Constitutional: see HPI EENTM: no symptoms reported Respiratory: wheezing Cardiovascular: no symptoms reported Gastrointestinal: constipation Genitourinary: hematuria, other (retention requiring davenport cath placement) Musculoskeletal: joint pain Skin: no symptoms reported Psychiatric/Neurological: No Symptoms Reported All Other Systems Reviewed Negative Unless Noted: Yes Physical Exam Physical Exam Vital Signs Vital Signs - First Documented 07/05/19 07/05/19 12:42 15:15 Temp 37.6 Pulse 82 Resp 18 B/P (MAP) 163/62 Pulse Ox 94 O2 Delivery Room Air Capillary Refill : Height, Weight, BMI Height: 5'5.00" Weight: 226lbs. 4.0oz. 102.207636ms; 41.12 BMI Method:Stated General Appearance: No Apparent Distress, WD/WN, Chronically ill, Obese Eyes: Bilateral Eye Normal Inspection, Bilateral Eye PERRL HEENT: PERRL/EOMI, Normal ENT Inspection, Pharynx Normal Neck: Full Range of Motion, Normal Inspection, Non Tender, Supple, Carotid Bruit Respiratory: Chest Non Tender, Lungs Clear, Normal Breath Sounds, No Accessory Muscle Use, No Respiratory Distress Cardiovascular: Regular Rate, Rhythm, No Edema, No Gallop, No JVD, No Murmur, Normal Peripheral Pulses Gastrointestinal: Normal Bowel Sounds, No Organomegaly, No Pulsatile Mass, Non Tender, Soft Back: Normal Inspection, No CVA Tenderness, No Vertebral Tenderness Extremity: Normal Capillary Refill, Normal Inspection, Normal Range of Motion (except left leg post op), Non Tender, No Calf Tenderness, No Pedal Edema Neurologic/Psychiatric: Alert, Oriented x3, No Motor/Sensory Deficits, compliance program manager II- XII Norm as Tested, Depressed Affect Skin: Normal Color, Warm/Dry Lymphatic: No Adenopathy PM&R Medical Assessment & Plan REHAB/MEDICAL ASSESSMENT AND PLAN: REHAB IMPAIRMENT GROUP: Left TKA ETIOLOGIC DIAGNOSIS: Left TKA The comorbidities that impact the patients function and/or functional outcome by: labile DM, labile HTN, AF, new hematuria on OAC, PHILLIP on CPAP, CRI REHAB PLAN: The patient is being admitted to our comprehensive inpatient rehabilitation facility and can tolerate the intensity of service consisting of at least: 180 minutes of therapy a day, 5 out of 7 days a week Rehab treatment will consist of: PT and OT will both focus on regaining ROM left leg and prevent falls and build confidence in order to return home with The patient/family has a good understanding of our discharge process and will benefit from an interdisciplinary inpatient rehabilitation program. The patient has potential to make improvement and is in need of at least two of the following multidisciplinary therapies including but not limited to physical, occupational, speech, and prosthetics and orthotics. Additionally the patient will need services from respiratory, nutritional services, wound care, psychology, etc. (Customize this to each patient). Given the patients complex condition and risk of further medical complications, rehabilitation services cannot be safely or effectively provided at a lower level of care such as a [facility] facility. BARRIERS TO DISCHARGE: Multiple medical issues complicating recovery ESTIMATED LOS: 7 days DISPOSITION: Home RELEVANT CHANGES SINCE PREADMISSION SCREENING: I have compared the patients medical and functional status at the time of the preadmission screening and there are: no changes PROGNOSIS: Good REHABILITATION GOALS: 1. PT and OT will both focus on regaining ROM left leg and prevent falls and build confidence in order to return home with All the above goals were reviewed with the patient and he/she is in agreement. By signing this document, I acknowledge that I have personally performed a full physical examination on this patient within 24 hours of admission to this inpatient rehabilitation facility and have determined the patient to be able to tolerate the above course of treatment at an intensive level for a reasonable period of time. I will be completing a detailed individualized Plan of Care for this patient by day #4 of the patients stay based upon the Preadmission Screen, the Post-Admission Evaluation, and the therapy evaluations. Admission Dx/Comorbidities: (1) Status post left knee replacement ICD Codes: Z96.652 - Presence of left artificial knee joint (2) Hematuria ICD Codes: R31.9 - Hematuria, unspecified (3) Davenport catheter in place ICD Codes: Z96.0 - Presence of urogenital implants (4) Postoperative nausea ICD Codes: R11.0 - Nausea; Z98.890 - Other specified postprocedural states (5) PHILLIP on CPAP ICD Codes: G47.33 - Obstructive sleep apnea (adult) (pediatric); Z99.89 - Dep endence on other enabling machines and devices (6) Valvular heart disease ICD Codes: I38 - Endocarditis, valve unspecified (7) Hypertension Status: Chronic ICD Codes: I10 - Essential (primary) hypertension (8) Hyperglycemia ICD Codes: R73.9 - Hyperglycemia, unspecified (9) Diabetes mellitus Status: Chronic ICD Codes: E11.9 - Type 2 diabetes mellitus without complications (10) Urinary retention ICD Codes: R33.9 - Retention of urine, unspecified (11) Atrial fibrillation Status: Chronic ICD Codes: I48.91 - Unspecified atrial fibrillation (12) Osteoarthritis of left knee ICD Codes: M17.12 - Unilateral primary osteoarthritis, left knee (13) Anemia due to acute blood loss Status: Acute ICD Codes: D62 - Acute posthemorrhagic anemia (14) Anticoagulant prescribed Status: Chronic (15) Atrial fibrillation Status: Acute ICD Codes: I48.91 - Unspecified atrial fibrillation HEATHER HOOKS DO Jul 05, 2019 18:04
--- NOTE | 2019-07-05 19:28 | NUR ---
bedside report received from BERNABE FR[place] & AUNRDEA [place], assume care of pt
--- NOTE | 2019-07-05 20:15 | NUR ---
pt wanting to get up to bathroom then remembered she has davenport catheter, urine is pink colored, pt drinking water as ordered, bladder scan done showed 0. Repositioned up in bed
[2019-07-05 20:50] VITALS: BP 168/71
--- NOTE | 2019-07-05 20:51 | NUR ---
fsbs 185 novolog 5 units given, took all meds encouraged laxatives as pt has not had stool since 07/03, pt occasionally forgetful, side rails up x4, bed alarm train control technician light in reach
[2019-07-05] MEDS: doxAzosin 2 MG (CARDURA) TAB PO SCH (20:59)
[2019-07-05] MEDS: SENNA W/DOCUSATE (SENOKOT S) TABLET PO SCH (20:59)
[2019-07-05] MEDS: FLECAINIDE 100 MG (TAMBOCOR) TAB PO SCH (21:00)
[2019-07-05] MEDS ORDERED: SENNA W/DOCUSATE (SENOKOT S) TABLET PO SCH (21:00)
[2019-07-05] MEDS: cloNIDine 0.2 MG (CATAPRES) TAB PO SCH (21:00)
[2019-07-05] MEDS: polyethylene glycoL POWDER 17 GM (MIRALAX) PACK PO SCH (21:01)
[2019-07-05] MEDS: DOCUSATE SODIUM 100 MG (COLACE) CAP PO SCH (21:05)
--- NOTE | 2019-07-05 22:00 | NUR ---
assisted pt with own cpap advised should wear all night, pt falling asleep easily, asked if pain ok states yes
[2019-07-06 05:21] LABS: BASOPHILS % (AUTO) 0 % (0-10); EOSINOPHILS % (AUTO) 0 % (0-10); HEMATOCRIT 27 % (35-52); HEMOGLOBIN 8.5 G/DL (11.5-16.0); LYMPHOCYTES # (AUTO) 0.6 X 10^3 (1.0-4.0); LYMPHOCYTES % (AUTO) 7 % (12-44); MEAN CORPUSCULAR HEMOGLOBIN 27 PG (25-34); MEAN CORPUSCULAR HGB CONC 32 G/DL (32-36); MEAN CORPUSCULAR VOLUME 86 FL (80-99); MEAN PLATELET VOLUME 10.6 FL (7.4-10.4); MONOCYTES # (AUTO) 0.9 X 10^3 (0.0-1.0); MONOCYTES % (AUTO) 10 % (0-12); NEUTROPHILS # (AUTO) 7.7 X 10^3 (1.8-7.8); NEUTROPHILS % (AUTO) 83 % (42-75); PLATELET COUNT 217 10^3/uL (130-400); RED CELL DISTRIBUTION WIDTH 15.7 % (10.0-14.5); WHITE BLOOD COUNT 9.3 10^3/uL (4.3-11.0)
[2019-07-06 05:31] VITALS: BP 152/60
[2019-07-06 05:40] LABS: ALANINE AMINOTRANSFERASE 22 U/L (0-55); ALBUMIN 3.5 GM/DL (3.2-4.5); ALKALINE PHOSPHATASE 113 U/L (40-136); BILIRUBIN,TOTAL 0.6 MG/DL (0.1-1.0); BUN/CREATININE RATIO 35; CALCIUM 9.1 MG/DL (8.5-10.1); CARBON DIOXIDE 21 MMOL/L (21-32); CHLORIDE 101 MMOL/L (98-107); CREATININE SERUM 0.82 MG/DL (0.60-1.30); GFR ESTIMATED > 60; GLUCOSE 153 MG/DL (70-105); SODIUM 132 MMOL/L (135-145); TOTAL PROTEIN 6.9 GM/DL (6.4-8.2)
[2019-07-06] MEDS: APIXABAN 5 MG (ELIQUIS) TABLET PO SCH ×2 (06:10→18:13)
[2019-07-06] MEDS: MULTIVIT W/MINERALS TAB (THERAGRAN M) PO SCH (06:11)
[2019-07-06] MEDS: oxyCODONE/APAP 5/325MG (PERCOCET 5) TABLET PO PRN ×3 (06:11→23:10)
[2019-07-06] MEDS: LEVOTHYROXINE 100 MCG (LEVOTHROID) TAB PO SCH (06:11)
--- NOTE | 2019-07-06 06:11 | NUR ---
C/O LT KNEE PAIN LEVEL 2/10 ON NUMERIC SCALE, PERCOCET 5/325 1 TAB GIVEN
[2019-07-06] MEDS: inSUlin ASPART (NovoLOG) 1 UNIT/0.01 ML (CHARGE PER UNIT) SQ SCH ×4 (06:12→20:53)
[2019-07-06] MEDS: RT-ALBUTEROL/IPRATROPIUM 3 ML (DUONEB) VIAL INH SCH ×3 (06:38→20:05)
--- NOTE | 2019-07-06 06:50 | Progress Note ---
Standard Progress Note Progress Notes/Assess & Plan Date Seen by a Provider: Jul 06, 2019 Time Seen by a Provider: 06:49 Progress/Assessment & Plan no complaints Vital Signs Date Time Temp Pulse Resp B/P (MAP) Pulse Ox O2 Delivery O2 Flow Rate FiO2 07/06/19 06:38 92 Room Air 07/06/19 05:31 36.8 83 18 152/60 (90) 94 NIV CPAP 07/05/19 22:01 92 Room Air 07/05/19 21:15 94 Room Air 07/05/19 20:50 36.7 76 18 168/71 (103) 94 Room Air 07/05/19 18:00 36.8 83 16 175/73 (107) 96 Room Air 07/05/19 17:19 Room Air 07/05/19 15:44 93 Room Air 07/05/19 15:15 37.6 82 18 163/62 94 Room Air 07/05/19 12:42 82 07/05/19 12:00 37.6 84 18 163/62 (95) 94 Room Air I & O 07/06/19 07:00 Intake Total 1150 ml Output Total 2225 ml Balance -1075 ml Laboratory Tests Test 07/05/19 16:00 07/06/19 05:05 Range/Units Glucometer 185 H 70-110 MG/DL White Blood Count 9.3 4.3-11.0 10^3/uL Red Blood Count 3.14 L 4.35-5.85 10^6/uL Hemoglobin 8.5 L 11.5-16.0 G/DL Hematocrit 27 L 35-52 % Mean Corpuscular Volume 86 80-99 FL Mean Corpuscular Hemoglobin 27 25-34 PG Mean Corpuscular Hemoglobin Concent 32 32-36 G/DL Red Cell Distribution Width 15.7 H 10.0-14.5 % Platelet Count 217 130-400 10^3/uL Mean Platelet Volume 10.6 H 7.4-10.4 FL Neutrophils (%) (Auto) 83 H 42-75 % Lymphocytes (%) (Auto) 7 L 12-44 % Monocytes (%) (Auto) 10 0-12 % Eosinophils (%) (Auto) 0 0-10 % Basophils (%) (Auto) 0 0-10 % Neutrophils # (Auto) 7.7 1.8-7.8 X 10^3 Lymphocytes # (Auto) 0.6 L 1.0-4.0 X 10^3 Monocytes # (Auto) 0.9 0.0-1.0 X 10^3 Eosinophils # (Auto) 0.0 0.0-0.3 10^3/uL Basophils # (Auto) 0.0 0.0-0.1 10^3/uL Sodium Level 132 L 135-145 MMOL/L Potassium Level 5.0 3.6-5.0 MMOL/L Chloride Level 101 98-107 MMOL/L Carbon Dioxide Level 21 21-32 MMOL/L Anion Gap 10 5-14 MMOL/L Blood Urea Nitrogen 29 H 7-18 MG/DL Creatinine 0.82 0.60-1.30 MG/DL Estimat Glomerular Filtration Rate > 60 BUN/Creatinine Ratio 35 Glucose Level 153 H 70-105 MG/DL Calcium Level 9.1 8.5-10.1 MG/DL Corrected Calcium 9.5 8.5-10.1 MG/DL Total Bilirubin 0.6 0.1-1.0 MG/DL Aspartate Amino Transf (AST/SGOT) 35 H 5-34 U/L Alanine Aminotransferase (ALT/SGPT) 22 0-55 U/L Alkaline Phosphatase 113 40-136 U/L Total Protein 6.9 6.4-8.2 GM/DL Albumin 3.5 3.2-4.5 GM/DL LLE--incision clean and dry. No calf tenderness. s/p LTKA continue PT/OT ROSALINA VALDES MD Jul 06, 2019 06:50
--- NOTE | 2019-07-06 07:00 | NUR ---
UP IN THE CHAIR, PAIN LEVEL 1/10 ON NUMERIC SCALE
[2019-07-06 08:00] VITALS: BP 168/60
--- NOTE | 2019-07-06 08:00 | NUR ---
DR. VICENTE HERE TO SEE PATIENT.
--- NOTE | 2019-07-06 08:19 | CONSULTATION REPORT ---
DATE OF SERVICE: 07/06/2019 ATTENDING PHYSICIAN: Dr. Destinee Pagan. SUMMARY: A 69-year-old white lady known to me a long time ago who is recovering from a total knee replacement by Dr. Pagan. She is on blood thinners. She has had some gross hematuria yesterday, they called me. She had a catheter in. I told them to push fluids and I saw her this morning. Her urine is roxie, clear. She never had similar episodes before. IMPRESSION: Gross hematuria, resolved. PLAN: We will observe, take the Delgado catheter out and if she develops again hematuria, she will contact my office or if she is in the hospital, she will need a workup including a noncontrast CT scan of the abdomen and pelvis as well as a cystoscopy. The plan was fully explained to the patient. Job ID: [id number] DocumentID: [id number] Dictated Date: 07/06/2019 07:11:53 Cans Vacuum Tester Date: 07/06/2019 08:18:20 Dictated By: EUSEBIO VICENTE MD
--- NOTE | 2019-07-06 09:07 | Physical Therapy Daily Note ---
PT Daily Note-Current Subjective Pt. up in recliner and hesitates to agree to Rx. "It hurts" but after rx stated it really felt better to get up and move on it., rated pain at 6/10 Pain Numeric Pain Scale: 6 Location: Left Location Body Site: Knee Pain Description: Stabbing Mental Status Patient Orientation: Normal For Age Attachments: Delgado Catheter Transfers SCALE: Activities may be completed with or without assistive devices. 6-Fcaigynfti-slrhkem completes the activity by him/herself with no assistance from a helper. 5-Set-up or Clean-up Assistance-helper sets up or cleans up; patient completes activity. [place] assists only prior to or following the activity. 4-Supervision or Touching Assistance-helper provides verbal cues and/or touching/steadying and/or contact guard assistance as patient completes activity. Assistance may be provided throughout the activity or intermittently. 3-Partial/Moderate Assistance-helper does LESS THAN HALF the effort. [place] lifts, holds or supports trunk or limbs, but provides less than half the effort. 2-Substantial/Maximal Assistance-helper does MORE THAN HALF the effort. [place] lifts or holds trunk or limbs and provides more than half the effort. 4-Iwwnusgvn-nexmql does ALL the effort. Patient does none of the effort to c omplete the activity. Or, the assistance of 2 or more helpers is required for the patient to complete the activity. If activity was not attempted, code reason: 7-Patient Refused. 9-Not Applicable-not attempted and the patient did not perform the activity before the current illness, exacerbation or injury. 10-Not Attempted due to Environmental Limitations-(lack of equipment, weather restraints, etc.). 88-Not Attempted due to Medical Conditions or Safety Concerns. Sit to Stand (QC): 3 Car Transfer (QC): 5 pt. fearful sit to stand and states she feels she will go over forward on to her nose, needs instructed and cues for hand placement and technique. for car TRF pt. lifted LEs into car simulator with UEs and needed only instruction Weight Bearing Right Lower Extremity: Right Full Weight Bearing Left Lower Extremity: Left Weight Bearing/Tolerated Gait Training Does the Patient Walk?: Yes Walk 10 feet (QC): 4 Walk 50 ft with 2 Turns(QC): 4 Walking 10ft/uneven surface-QC: 4 Gait Persons Needed: 1 Stair Training Stair Training: Handrails/: uses walker #of Steps: 2 1 Step (curb) (QC): 4 Stairs: Pattern: Step to CGA and instruction for wt bearing and sequence Exercises Supine Ex: Ankle pumps, Quad Set, Heel Slides Supine Reps: 20 Seated Therapy Exercises: Sit to stand, Long arc quads Seated Reps: 15 NuStep Minutes: 10 NuStep Workload: 3 Treatments frequent sips of water secondary to thirst, up in recliner after with polar pack and call bunch at hand Assessment Current Status: Good Progress PT Short Term Goals Short Term Goals Time Frame: Jul 12, 2019 Sit to lyin Lying to sitting on side of be: 4 Sit to stand: 4 Walk 150 feet: 4 PT Central Aisle Cashier Goals Fpc Goals PT Central Aisle Cashier Goals Time Frame: Jul 19, 2019 Roll Left & Right (QC): 6 Sit to Lying (QC): 6 Lying-Sitting on Side/Bed(QC): 6 Sit to Stand (QC): 6 Chair/Yxb-yj-Awbkg Xfer(QC): 6 Toilet Transfer (QC): 6 Car Transfer (QC): 5 Does the Patient Walk: Yes Walk 10 feet (QC): 6 Walk 50ft with 2 Turns (QC): 6 Walk 150 ft (QC): 6 Walking 10ft on Uneven Surface: 5 1 Step (curb) (QC): 5 4 Steps (QC): 5 12 Steps (QC): 9 Picking up an Object (QC): 9 Does the Pt use WC or Scooter?: No PT Plan Treatment/Plan Treatment Plan: Continue Plan of Care Treatment Plan: Bed Mobility, Education, Functional Activity Devika, Functional Strength, Group Therapy, Gait, Safety, Therapeutic Exercise, Transfers Treatment Duration: Jul 19, 2019 Frequency: At least 5 of 7 days/Wk (IRF) Estimated Hrs Per Day: 1.5 hours per day Patient and/or Family Agrees t: Yes Safety Risks/Education Patient Education: Gait Training, Transfer Techniques, Steps, Correct Positioning, Disease Process, Safety Issues Teaching Recipient: Patient Teaching Methods: Demonstration, Discussion Response to Teaching: Verbalize Understanding, Return Demonstration, Reinforcement Needed Time/GCodes Time In: 800 Time Out: 900 Total Billed Treatment Time: 60 Total Billed Treatment 1,EX30m,FA15m,GT15m ZACHARY PHIPPS OIL FILTERS INSPECTOR Jul 06, 2019 09:07
[2019-07-06] MEDS: PANTOPRAZOLE 20 MG TABLET (PROTONIX) PO SCH (09:08)
[2019-07-06] MEDS: ASPIRIN E.C. 81 MG (ECOTRIN) TAB PO SCH (09:08)
[2019-07-06] MEDS: SENNA W/DOCUSATE (SENOKOT S) TABLET PO SCH ×3 (09:09→23:09)
[2019-07-06] MEDS: FLECAINIDE 100 MG (TAMBOCOR) TAB PO SCH ×2 (09:09→20:15)
[2019-07-06] MEDS: doxAzosin 2 MG (CARDURA) TAB PO SCH ×2 (09:09→20:15)
[2019-07-06] MEDS: DOCUSATE SODIUM 100 MG (COLACE) CAP PO SCH ×2 (09:09→20:17)
[2019-07-06] MEDS: LORATADINE (CLARITIN) 10 MG TAB PO SCH (09:10)
[2019-07-06] MEDS: polyethylene glycoL POWDER 17 GM (MIRALAX) PACK PO SCH ×3 (09:12→23:10)
[2019-07-06] MEDS: cloNIDine 0.2 MG (CATAPRES) TAB PO SCH ×2 (09:14→20:15)
--- NOTE | 2019-07-06 09:20 | NUR ---
VASQUEZ CATHETER DC'D. SEE INTERVENTION. URINE CLEAR KAYLEIGH.
[2019-07-06] MEDS ORDERED: IRON SUCROSE 200 MG/10 ML (VENOFER) VIAL IV NR (09:30)
--- NOTE | 2019-07-06 09:38 | PM&R Progress Note ---
Subjective HPI/CC On Admission Date Seen by Provider: Jul 06, 2019 Time Seen by Provider: 09:45 Subjective/Events-last exam Patient had a good night AMS resolved and she is alert and no issues Pain controlled very well now Iron 15 so initiated Venofer for 5 doses and updated her again on this Insulin regimen discussed, sugars satisfactory Checked meds and labs Conferred with RN Reviewed therapy notes Review of Systems General: Fatigue Musculoskeletal: leg pain Objective Exam Vital Signs Vital Signs Date Time Temp Pulse Resp B/P (MAP) Pulse Ox O2 Delivery O2 Flow Rate FiO2 07/07/19 09:44 Room Air 07/07/19 06:12 36.2 78 18 154/60 (91) 96 Capillary Refill : Less Than 3 Seconds General Appearance: No Apparent Distress, WD/WN, Chronically ill, Obese HEENT: PERRL/EOMI, Normal ENT Inspection, Pharynx Normal Neck: Full Range of Motion, Normal Inspection, Non Tender, Supple, Carotid Bruit Respiratory: Chest Non Tender, Lungs Clear, Normal Breath Sounds, No Accessory Muscle Use, No Respiratory Distress Cardiovascular: Regular Rate, Rhythm, No Edema, No Gallop, No JVD, No Murmur, Normal Peripheral Pulses Gastrointestinal: Normal Bowel Sounds, No Organomegaly, No Pulsatile Mass, Non Tender, Soft Back: Normal Inspection, No CVA Tenderness, No Vertebral Tenderness Extremity: Normal Capillary Refill, Normal Inspection, Normal Range of Motion (except left leg post op), Non Tender, No Calf Tenderness, No Pedal Edema Neurologic/Psychiatric: Alert, Oriented x3, No Motor/Sensory Deficits, wrecker driver II- XII Norm as Tested, Depressed Affect Skin: Normal Color, Warm/Dry Lymphatic: No Adenopathy Results/Procedures Lab Patient resulted labs reviewed. FIM Transfers Therapy Code Descriptions/Definitions Functional [place] Measure: 0=Not Assessed/NA 4=Minimal Assistance 1=Total Assistance 5=Supervision or Setup 2=Maximal Assistance 6=Modified [place] 3=Moderate Assistance 7=Complete IndependenceSCALE: Activities may be completed with or without assistive devices. 8-Pcpygjlaeg-iunxaxr completes the activity by him/herself with no assistance from a helper. 5-Set-up or Clean-up Assistance-helper sets up or cleans up; patient completes activity. [place] assists only prior to or following the activity. 4-Supervision or Touching Assistance-helper provides verbal cues and/or touching/steadying and/or contact guard assistance as patient completes activity. Assistance may be provided throughout the activity or intermittently. 3-Partial/Moderate Assistance-helper does LESS THAN HALF the effort. [place] lifts, holds or supports trunk or limbs, but provides less than half the effort. 2-Substantial/Maximal Assistance-helper does MORE THAN HALF the effort. [place] lifts or holds trunk or limbs and provides more than half the effort. 8-Yjmnmmuyy-hxdlgd does ALL the effort. Patient does none of the effort to compl ete the activity. Or, the assistance of 2 or more helpers is required for the patient to complete the activity. If activity was not attempted, code reason: 7-Patient Refused. 9-Not Applicable-not attempted and the patient did not perform the activity before the current illness, exacerbation or injury. 10-Not Attempted due to Environmental Limitations-(lack of equipment, weather restraints, etc.). 88-Not Attempted due to Medical Conditions or Safety Concerns. Roll Left to Right (QC): 3 Sit to Lying (QC): 3 (assist with left leg to get into bed.) Sit to Stand (QC): 3 Chair/Ocs-vf-Axwxm Xfer(QC): 3 Car Transfer (QC): 5 Gait Training Does the Patient Walk?: Yes Walk 10 feet (QC): 4 Walk 50 ft with 2 Turns(QC): 4 Walk 150 ft (QC): 88 (unableto walk this distance) Walking 10ft/uneven surface-QC: 4 Gait Persons Needed: 1 Gait Assistive Device: FWW Wheelchair Training Does the Pt Use a Wheelchair?: No Stair Training Stair Training: Handrails/: uses walker #of Steps: 2 1 Step (curb) (QC): 4 4 Steps (QC): 88 12 Steps (QC): 88 Stairs: Pattern: Step to Balance Picking up an Object (QC): 88 ADL-Treatment Eating (QC): 6 (Per pt report, she was independent eating her lunch. She reported no difficulties opening containers, cutting food, and bringing food to her mouth.) Oral Hygiene (QC): 5 (Pt required set up/clean assist at recliner for task. She was able to put paste on brush and brush her teeth, then bring cup to mouth in order to rinse her mouth out. ) Shower/Bathe Self (QC): 2 (SPONGE BATH - Pt was able to wash her UEs, chest and abdomen. She required assistance washing her back, buttocks, periarea, and RLE. LLE not attempted on this date due to dressing and compression stockings but based on clinical reasoning pt would require assistance with LLE. ) Upper Body Dressing (QC): 3 (Pt able to doff hospital gown, and don long sleeve shirt. She threaded her UEs into sleeves and brought shirt overhead. Required assistance with pulling shirt down in back and front.) Lower Body Dressing (QC): 2 (Pt required assistance donning BLE into pants/underwear, she helped pull the pants up her leg but required assistance pulling her foot all the way through her pant legs. During stand at FWW, pt required assistance managing pants/underwear up over hips, with skilled cues to maintain balance with task. ) On/Off Footwear (QC): 1 (Pt unable to reach her feet in order to don/doff slipper socks, requiring total assistance with task.) Toileting Hygiene (QC): 2 (BSC - Pt required assistance with all parts of task. She attempted to manage her clothing up, but was unsteady with task requiring skilled cues to for hand placement on FWW to maintain balance.) Assessment/Plan Assessment and Plan Assess & Plan/Chief Complaint Assessment: s/p left knee replacement AF OAC DM labile HTN PHILLIP on CPAP Acute wheezing Iron deficiency anemia HLP Plan: IRF protocol Nebs IV Iron (1) Status post left knee replacement (2) Hematuria (3) Delgado catheter in place (4) Postoperative nausea (5) PHILLIP on CPAP (6) Valvular heart disease (7) Hypertension Status: Chronic (8) Hyperglycemia (9) Diabetes mellitus Status: Chronic (10) Urinary retention (11) Atrial fibrillation Status: Chronic (12) Osteoarthritis of left knee (13) Anemia due to acute blood loss Status: Acute (14) Anticoagulant prescribed Status: Chronic (15) Atrial fibrillation Status: Acute HEATHER HOOKS DO Jul 06, 2019 09:38
--- NOTE | 2019-07-06 09:39 | Individualized Plan of Care ---
Individualized Plan of Care Rehab Nursing IPOC Order Admission Date Jul 05, 2019 at 12:00 Current Orders Orders Admission Arrival Bed Request (07/05/19 12:07) Admission Order(Inpt,Obs,Sdc) (07/05/19 12:09) Vital Signs: Per Unit Policy ( 08,16,00 (07/05/19 12:09) Dany Bowers , (07/05/19 12:09) Sequential Compression Device Q4H (07/05/19 12:09) Oil Agent-Inpt Rehab Con (07/05/19 12:09) Rehab Nursing Orders-Ipoc (07/05/19 12:09) Physical Therapy Rehab Orders (07/05/19 12:09) Occupational Therapy Rehab Ord (07/05/19 12:09) Speech Therapy Rehab Orders (07/05/19 12:09) Cbc With Automated Diff (07/06/19 06:00) Comprehensive Metabolic Panel (07/06/19 06:00) Intake & Output 06,14,22 (07/05/19 12:09) Precautions (Aru) (07/05/19 12:09) Weekly Weight WEEK (07/05/19 12:09) Rehab-Intensity Of Therapy (07/05/19 12:09) Cho 60g/M 3snack (16-2000 Jose) (07/05/19 Dinner) Initiate Admission Nursing Pro .admission (07/05/19 12:09) Alprazolam Tablet (Xanax Tablet) (07/05/19 12:15) Calcium Carbonate Chew Tablet (Antacid C (07/05/19 12:15) Diphenhydramine Tablet (Benadryl Tablet) (07/05/19 12:15) Docusate Sodium Capsule (Colace Capsule) (07/05/19 21:00) Docusate Sodium Capsule (Colace Capsule) (07/05/19 12:15) Bisacodyl Suppository (Dulcolax Supposit (07/05/19 12:15) Lactulose Oral Solution (Enulose Oral So (07/05/19 12:15) Na Phos/Na Biphos Enema (Fleet Enema Lizandro (07/05/19 12:15) Guaifenesin/Codeine Syrup (Robitussin Ac (07/05/19 12:15) Loperamide Tablet (Imodium Tablet) (07/05/19 12:15) Melatonin Tablet (Melatonin Tablet) (07/05/19 12:15) Polyethylene Glycol Powder Pkt (Miralax (07/05/19 21:00) Ondansetron Oral Dissolve Tab (Zofran (07/05/19 12:15) Senna S Tablet (Senokot S Tablet) (07/05/19 21:00) Initiate Admission Nursing Pro .admission (07/05/19 12:09) Dressing Order (Intervention) DAILY (07/05/19 12:36) Incentive Spirometry (Nursing) Q2H (07/05/19 12:36) Oxygen-Administer (07/05/19 12:36) (Nf) Insulin Glargine,Hum.Rec.Anlog (Ari (07/05/19 21:00) Albuterol/Ipra Inhalation Soln (Duoneb I (07/05/19 14:00) Apixaban Tablet (Eliquis Tablet) (07/05/19 18:00) Aspirin Enteric Coated Tablet (Ecotrin T (07/06/19 09:00) Flecainide Tablet (Tambocor Tablet) (07/05/19 21:00) Levothyroxine Tablet (Synthroid Tablet) (07/06/19 06:30) Loratadine Tablet (Claritin Tablet) (07/06/19 09:00) Therapeutic Multivitamin Tab (Vitamins, (07/06/19 07:00) Ondansetron Injection (Zofran Injectio (07/05/19 12:45) Pantoprazole Tablet (Protonix Tablet) (07/06/19 09:00) Patient May Use Own Meds, All (Patient M (07/05/19 12:45) Promethazine Injection (Phenergan Injec (07/05/19 12:45) Senna S Tablet (Senokot S Tablet) (07/05/19 21:00) Acetaminophen Tablet/Caplet (Tylenol T (07/05/19 12:45) Clonidine Tablet (Catapres Tablet) (07/05/19 21:00) Diltiazem Cd 24 Hr Capsule (Cardizem Cd (07/06/19 09:00) Diphenhydramine Injection (Benadryl Inje (07/05/19 12:45) Doxazosin Tablet (Cardura Tablet) (07/05/19 21:00) Hydralazine Injection (Apresoline Inject (07/05/19 12:45) Insulin Aspart (Novolog) (Novolog (Charg (07/05/19 16:00) Oxycodone/Apap 5/325mg Tablet (Percocet (07/05/19 12:45) Consult Physician (07/05/19 12:36) Svn Small Volume Nebulizer (07/05/19 12:36) Communication For Respiratory (07/05/19 12:36) Svn Small Volume Nebulizer (07/05/19 12:36) Catheter(Urinary) Discontinue (07/05/19 12:36) Consult Cardiology (07/05/19 12:36) Patch Removal (Patch Removal) (07/07/19 13:45) Patient Visit (07/05/19 ) Pt Eval Moderate Complexity (07/05/19 ) Functional Activities, Ea 15 (07/05/19 ) Exercise Therap, Ea 15 Min (07/05/19 ) Accucheck Achs ACHS (07/05/19 14:18) Ambulate 08,12,20 (07/05/19 15:28) Sequential Compression Device Q4H (07/05/19 15:28) Dvt/Vte Risk - Notifiy Physici Q4H (07/05/19 15:28) Nursing Communication (Order) UD (07/05/19 15:56) Encourage Po Fluids (07/05/19 18:52) Rt Request For Service (07/05/19 18:59) Catheter(Urinary) Discontinue (07/06/19 07:11) Iron Sucrose Injection (Venofer Injectio (07/06/19 09:30) Iron Sucrose Injection (Venofer Injectio (07/08/19 09:00) Patient Visit (07/06/19 ) Speech Sound Lang Comp (07/06/19 ) Patient Visit (07/06/19 ) Exercise Therap, Ea 15 Min (07/06/19 ) Functional Activities, Ea 15 (07/06/19 ) Gait Training, Ea 15 Min (07/06/19 ) Patient Visit (07/07/19 ) Gait Training, Ea 15 Min (07/07/19 ) Rehab Nursing Orders: Ongoing Assess. of Cognitive Status, Ongoing Assess. of Function Status, Bladder Management, Bladder Scan, Bladder Training, Bowel Management, Bowel Training, Disease Management & Educaiton, DVT Prophylaxis, Fall Prevention, Fluid/Electrolyte/Nutrition Mgmt, Infection Prevention, Medication Management & Education, Management of Risks & Complications, Management of Skin Intergrity, Nutrition Management, Pain Management, Patient/Family Support, Safety Management, Swallow Precautions Intensity of Therapy to be met Patient to be seen: Min.3h per day/5 of 7d PT IPOC Problem List: Activity Tolerance, Functional Strength, Safety, Balance, Gait, Transfer, Bed Mobility, ROM Treatment Plan: Continue Plan of Care Bed Mobility, Education, Functional Activity Devika, Functional Strength, Group Therapy, Gait, Safety, Therapeutic Exercise, Transfers Treatment Duration: Jul 19, 2019 Frequency: At least 5 of 7 days/Wk (IRF) Estimated Hrs Per Day: 1.5 hours per day OT IPOC Problems: Decreased Activ Tolerance, Decreased Safety Aware, Decreased UE Strength, Impaired Funct Balance, Impaired I ADL's, Impaired Self-Care Skills OT Treatment, Training and Edu: Yes Plan of Care: ADL Retraining, Caregiver Training, Functional Mobility, Group E xercise/Act as Ind, UE Funct Exercise/Act Treatment Duration: Jul 27, 2019 Frequency: At least 5 of 7 days/Wk (IRF) Estimated Hrs Per Day: 1.[address] IPOC Speech Therapy Treatment Plan: Discontinue ST Treatment Duration: Jul 06, 2019 Frequency: Modified Program (IRF) Estimated Hrs Per Day: Other Oil Agent/Case Mgmt Oil Agent/Case Managemen: Discharge Planning Dietitian/Printing Engineer Dietitian/Printing Engineer to monitor nutritional status and make changes and/or recommendations as needed and work with speech pathology on dietary upgrades as the occur. Physician IPOC Medical Issues being managed closely and that require the 24 hour availability of a physician: Labile sugars with high risk for DKA and acute wheezing and anemia post op will need close monitoring Medical Issues: Bowel/Bladder Function, DVT Prophylaxis, Falls Precautions, Fluid/Electrolyte/Nutrition Balance, Infection Protection, Pain Management Brief Synthesis of Preadmission Screen, Post-Admission Evaluation, and Therapy Evaluations: PT OT will focus on regaining ADL function and ambulation with use of walker in order to return home with Medical Prognosis: Good Anticipated Length of Stay: 7 days HEATHER HOOKS DO Jul 06, 2019 09:39
--- NOTE | 2019-07-06 10:00 | NUR ---
UP TO COMMODE WITH ASST. VOIDED 200 CC. DOES GET SOB AND COMPLAIN WHEEZY WITH ACTIVITY. DR. HOOKS NOTIFIED. DOES RECUPERATE AFTER RESTING.
--- NOTE | 2019-07-06 10:23 | NUR ---
RD ASSESSMENT PMHx: afib; HTN; hypercholesterolemia; chronic constipation/diarrhea; s/p left TKA PT INTERACTION: Pt was awake and pleasant during nutrition assessment. Pt states current appetite is poor and has been since her surgery. Note avg PO intake of 63% x2meal, per chart review. Pt states following a regular diet at home and has no issues with chewing/swallowing food. Pt states no recent issues with n/v/c/d at this time, and that her last BM was 07/03. Note pt currently on bowel regimen of colace BID; senna BID; and miralax BID, per chart review. Pt states no recent wt changes. Note unable to determine recent wt hx, per chart review. Pt states current DM management is "pretty good parts of the time." Pt states unsure of blood glucose averages. Note recent HbA1c of 6.6 on 05/17/19, per chart review. ABNORMAL NUTRITION-RELATED LAB VALUES LOW: Na 132 HIGH: BUN 29; glu 153; AST 35 Est. kcal needs: 9297-6232 kcal | 15-18 kcal/kg Est. Pro needs: 90-112 g Pro | 0.8-1.0 g Pro/kg PES STATEMENT: Inadequate oral intake (NI-2.1) related to loss of appetite as evidenced by pt interview | avg PO intake 63% x2meal INTERVENTION: Continue with current diet order of CHO 60g/m 3snack diet. Pt may benefit from nutrition supplementation if PO intake declines. Will continue to follow and reassess as pt needs, intake and status change. MONITOR/EVALUATE: PO Intake; Plan of Care; Hydration Status; Weight Status; Lab Values Chantal Merlos, , RD, LD
--- NOTE | 2019-07-06 11:04 | Occupational Ther Daily Note ---
OT Current Status-Daily Note Subjective Pt seen in recliner chair, polar pack on, pt's RLE elevated. Pt expresses 7/10 pain, worse when in stance. Pt agreeable to OT tx session. Mental Status/Objective Patient Orientation: Normal For Age Attachments: Polar Pack ADL-Treatment Therapy Code Descriptions/Definitions Functional [place] Measure: 0=Not Assessed/NA 4=Minimal Assistance 1=Total Assistance 5=Supervision or Setup 2=Maximal Assistance 6=Modified [place] 3=Moderate Assistance 7=Complete IndependenceSCALE: Activities may be completed with or without assistive devices. 6-Zbjyjsntsw-tqvohnz completes the activity by him/herself with no assistance from a helper. 5-Set-up or Clean-up Assistance-helper sets up or cleans up; patient completes activity. [place] assists only prior to or following the activity. 4-Supervision or Touching Assistance-helper provides verbal cues and/or touching/steadying and/or contact guard assistance as patient completes activity. Assistance may be provided throughout the activity or intermittently. 3-Partial/Moderate Assistance-helper does LESS THAN HALF the effort. [place] lifts, holds or supports trunk or limbs, but provides less than half the effort. 2-Substantial/Maximal Assistance-helper does MORE THAN HALF the effort. [place] lifts or holds trunk or limbs and provides more than half the effort. 0-Rgfyltqqs-neehvb does ALL the effort. Patient does none of the effort to complete the activity. Or, the assistance of 2 or more helpers is required for the patient to complete the activity. If activity was not attempted, code reason: 7-Patient Refused. 9-Not Applicable-not attempted and the patient did not perform the activity before the current illness, exacerbation or injury. 10-Not Attempted due to Environmental Limitations-(lack of equipment, weather restraints, etc.). 88-Not Attempted due to Medical Conditions or Safety Concerns. Eating (QC): 6 Oral Hygiene (QC): 7 Shower/Bathe Self (QC): 3 (CGA in stance. Pt requires assist with BLE distal to knees.) Upper Body Dressing (QC): 5 (s/u) Lower Body Dressing (QC): 2 (Pt requires assist threading BLE into undergarments. Pt then able to thread BLE into pant legs and completes hiking with CGA. ) On/Off Footwear: 3 (Pt able to doff socks with min A R side, pt educated on use of dressing stick to doff and sock aide to don. Pt educated on continuation of attempting sock don/ doffing without AE, but equipment use for increased IND.) Toileting Hygiene (QC): 4 (CGA in stance.) Toilet Transfer (QC): 4 (CGA, use of walker to BSC.) Other Treatment [id number] (75):Pt seen in recliner, states pain. Pt agrees to sponge bath and change of undergarments. Pt completes urination at [facility] 3x during session. Pt's output measured. Pt becomes SOB during transfer from recliner to [facility] placed beside recliner, pt questioned whether pain or anxiousness brings on SOB. Pt states she typically gets SOB but is more SOB/ dry mouth than normal. Pt educated on diaphragmatic breathing and benefits for breath support, pain management. Pt demonstrates back 3x. Pt encouraged to complete alfonso breathing during tasks. Pt unable to reach Bilateral feet, pt educated on continued movement to decrease swelling/ increase ROM/ decrease pain. pt educated on AE for higher functional IND and option to utilize to decrease SOB while bending over, pt hopes to be able to don LB dressing/ socks without use of AE. Pt completes sponge bath/ urination/ dressing tasks with mod rest breaks and cues for breathing. Pt requests breathing tx, pt's nurse notified, nursing states not due until ~2p, pt's PT notified as well of difficulty breathing with min- moderate activities. Pt educated on HEP/ UE theraband exercises. Pt educated on PT session later, all needs met, call light on bed but within reach per pt. Pt denies polar pack, stating PT will be present soon and no need. Pt educated on use of ice for edema management, pt nods. [id number] (15): Pt seen to assist from bed to toilet. Pt in CPM and polar pack. Doffed. Pt completes bed mob with mod A for LLE. Pt sit to stand with min A, ambulates to toilet with walker ([facility]). pt completes and returns to recliner chair. 02 assessed: 83%, recovers over 90% after multiple cues for deep breathing and ~45 seconds. Pt then maintains at 93%, after ~2 min at 96% 02 room air. Pt's polar pack reapplied. Pt's leg elevated with pillow and leg rest. Food placed in front of pt with pillow to position. Pt's needs met, call light within reach. Education OT Patient Education: Correct positioning, Energy conservation, Exercise program, Home exercise program, Modified ADL techniques, Safety issues, Use of adapted equipment Teaching Recipient: Patient Teaching Methods: Demonstration, Discussion Response to Teaching: Verbalize Understanding, Return Demonstration OT Short Term Goals Short Term Goals Time Frame: Jul 20, 2019 Shower/bathe self: 3 Upper body dressin Lower body dressin OT Half-Way Goals Water Quality Manager Goals Time Frame: Jul 27, 2019 Oral Hygiene (QC): 6 Toileting Hygiene (QC): 6 Shower/Bathe Self (QC): 6 Upper Body Dressing (QC): 6 Lower Body Dressing (QC): 6 On/Off Footwear (QC): 6 Additional Goals: 1-Demonstrate ADL Tasks, 2-Verbalize Understanding, 3- ImproveStrength/Devika 1=Demonstrate adherence to instructed precautions during ADL tasks. 2=Patient will verbalize/demonstrate understanding of assistive devices/modifications for ADL. 3=Patient will improve strength/tolerance for activity to enable patient to perform ADL's. OT Education/Plan Problem List/Assessment Assessment: Decreased Activ Tolerance, Dependent Transfers, Edema, Impaired Funct Balance, Impaired I ADL's, Impaired Self-Care Skills Discharge Recommendations Plan/Recommendations: Continue POC Treatment Plan/Plan of Care Treatment,Training & Education: Yes Patient would benefit from OT for education, treatment and training to promote independence in ADL's, mobility, safety and/or upper extremity function for ADL's. Plan of Care: ADL Retraining, Caregiver Training, Functional Mobility, Group Exercise/Act as Ind, UE Funct Exercise/Act Treatment Duration: Jul 27, 2019 Frequency: At least 5 of 7 days/Wk (IRF) Estimated Hrs Per Day: 1.5 hours per day Agreement: Yes Rehab Potential: Good Time/GCodes Start Time: 09:30 (1155) Stop Time: 10:45 (1210) Total Time Billed (hr/min): 90 Billed Treatment Time [id number]: 1, ADL 4 (60), EX (15)= 75 [id number] (15): 1, ADL (15) MAXI HENDRICKS OTR Jul 06, 2019 11:04
--- NOTE | 2019-07-06 11:30 | Physical Therapy Daily Note ---
PT Daily Note-Current Subjective Pt. agrees to Rx. Less audible wheezing at this time. Pt. requests to go to bathroom Pain Numeric Pain Scale: 6 Location: Left Location Body Site: Knee Pain Description: Stabbing Mental Status Patient Orientation: Normal For Age Attachments: Other-See Comments (CPM and polar pack) Transfers SCALE: Activities may be completed with or without assistive devices. 3-Ojynkkuczb-ycxfitz completes the activity by him/herself with no assistance from a helper. 5-Set-up or Clean-up Assistance-helper sets up or cleans up; patient completes activity. [place] assists only prior to or following the activity. 4-Supervision or Touching Assistance-helper provides verbal cues and/or touching/steadying and/or contact guard assistance as patient completes activity. Assistance may be provided throughout the activity or intermittently. 3-Partial/Moderate Assistance-helper does LESS THAN HALF the effort. [place] lifts, holds or supports trunk or limbs, but provides less than half the effort. 2-Substantial/Maximal Assistance-helper does MORE THAN HALF the effort. [place] lifts or holds trunk or limbs and provides more than half the effort. 8-Ubqqhesyw-tyhfju does ALL the effort. Patient does none of the effort to complete the activity. Or, the assistance of 2 or more helpers is required for the patient to complete the activity. If activity was not attempted, code reason: 7-Patient Refused. 9-Not Applicable-not attempted and the patient did not perform the activity before the current illness, exacerbation or injury. 10-Not Attempted due to Environmental Limitations-(lack of equipment, weather restraints, etc.). 88-Not Attempted due to Medical Conditions or Safety Concerns. Weight Bearing Right Lower Extremity: Right Full Weight Bearing Left Lower Extremity: Left Weight Bearing/Tolerated Gait Training Does the Patient Walk?: Yes Gait Assistive Device: FWW 50ftx2 CGA and more instruction for use of UEs on FWW for wt bearing as pt. c/o "I feel like my left knee will buckle while I'm up on it at times" discussed using UEs on FWW to help with wt bearing discomfort on LLE Exercises Supine Ex: Ankle pumps, Heel Slides, Straight leg raise Supine Reps: 12 Treatments toileted in bthrm with min to mod assist sit to stand at toilet and min to CGA for clothing, in CPM and polar pack in bed supine after Rx, call bunch at hand Assessment Current Status: Good Progress no wheezing or breathing issues noted at this time PT Short Term Goals Short Term Goals Time Frame: Jul 12, 2019 Sit to lyin Lying to sitting on side of be: 4 Sit to stand: 4 Walk 150 feet: 4 PT Alf Goals Alf Goals PT Alf Goals Time Frame: Jul 19, 2019 Roll Left & Right (QC): 6 Sit to Lying (QC): 6 Lying-Sitting on Side/Bed(QC): 6 Sit to Stand (QC): 6 Chair/Qge-sm-Kczyy Xfer(QC): 6 Toilet Transfer (QC): 6 Car Transfer (QC): 5 Does the Patient Walk: Yes Walk 10 feet (QC): 6 Walk 50ft with 2 Turns (QC): 6 Walk 150 ft (QC): 6 Walking 10ft on Uneven Surface: 5 1 Step (curb) (QC): 5 4 Steps (QC): 5 12 Steps (QC): 9 Picking up an Object (QC): 9 Does the Pt use WC or Scooter?: No PT Plan Treatment/Plan Treatment Plan: Continue Plan of Care Treatment Plan: Bed Mobility, Education, Functional Activity Devika, Functional Strength, Group Therapy, Gait, Safety, Therapeutic Exercise, Transfers Treatment Duration: Jul 19, 2019 Frequency: At least 5 of 7 days/Wk (IRF) Estimated Hrs Per Day: 1.5 hours per day Patient and/or Family Agrees t: Yes Safety Risks/Education Patient Education: Gait Training, Transfer Techniques, Correct Positioning, Disease Process, Safety Issues Teaching Recipient: Patient Teaching Methods: Demonstration, Discussion Response to Teaching: Verbalize Understanding, Return Demonstration, Reinforcement Needed Time/GCodes Time In: 1100 Time Out: 1130 Total Billed Treatment Time: 30 Total Billed Treatment 1,FA15m,EX15m ZACHARY PHIPPS GUEST SERVICES AGENT Jul 06, 2019 11:30
--- NOTE | 2019-07-06 13:14 | ST Cognitive Linguistic Eval ---
Speech Evaluation-General Medical Diagnosis OA left knee Onset Date: Jul 05, 2019 Therapy Diagnosis Therapy Diagnosis: Cognitive-communication Referral Referring Physician: Dr. Felipe Reason for Referral: Evaluation/Treatment Medical History Pertinent Medical History: Atrial Fib, DM Reviewed History: Yes Social History Current Living Status: Spouse Speech PLF-Current Status Prior Level of Function Patient reported living an independent life prior to the hospital admission. Subjective Patient was alert, pleasant, and cooperative for all evaluation tasks. Patient reported that she was feeling a little confused today but improving each day. Patient sat upright in her chair for the duration of the evaluation. Language Eval: Auditory Comprehends Simple Yes/No Ques: Functional Indent/Objects Multiple Be: Functional Ident/Pics in Multiple Be: Functional Follows 1-Step Commands: Functional Follows Complex Directions: Mild Follows General Conversations: Functional Language Eval: Verbal Language Completes Spontaneous Greeting: Functional Produces Auto, Serial Info: Mild Imitates Simple Words/Phrases: Functional Word Finding: Mild Requests Basic Needs: Functional States Basic Personal Info: Functional Expresses Complex Ideas: Mild Objective Cognitive Domain Attention: WNL Memory: Mild Problem Solving: Mild Executive Functions: WNL Visuospatial Skills: WNL Composite Severity Rating: Mild Clock Drawing Severity Rating: WNL Objective Formal/Standardized Tests [facility] Mental Status (UMS) Examination. Results The patient was administered the SLUMS and scored a 23/30 which falls within the mild dementia level of cognitive functions. Oral Motor/Speech Production Within functional limits. Impression Patient was admitted to the ARU s/p knee surgery. Patient was administered the SLUMS and scored 23/30 which falls within the mild dementia level of cognitive function. Patient will receive skilled ST services to address deficits in the areas of memory, problem-solving, and safety awareness to improve cognitive functions and effectively communicate wants/needs. Speech Patient Assess Expression of Ideas/Wants: Expression (4) Understanding Verbal Content: Usually Understands (3) Brief Interview-Mental Status: Yes Repetition of Three Words: Three (3) Temporal Orientation: Year: Correct (3) Temporal Orientation: Month: Accurate within 5 days(2) Temporal Orientation: Day: Correct (1) Recall : Wear to say "Sock": Yes, no cue required (2) Recall : Color: No, could not recall (0) Recall : Bed: No, could not recall (0) Memory/Recall Ability: Current season, That he or she is in a hsp/hsp unit Speech Short Term Goals Short Term Goals Short Term Goals 1. Patient will complete memory tasks at 90% accuracy with minimal cues. 2. Patient will complete problem-solving tasks at 90% accuracy with minimal cues. 3. Patient will complete safety awareness tasks at 90% accuracy with minimal cues. Speech Chcf Goals Technical Intern Goals Patient will improve cognitive-communication necessary for safety and daily living tasks with minimal assist. Speech-Plan Patient/Family Goals Patient/Family Goals: Patient reported that she wishes to return home to previous level of mobility and independence. Treatment Plan Speech Therapy Treatment Plan: Continue Plan of Care Treatment Duration: Jul 13, 2019 Frequency: 4 times per week (4 to 5) Estimated Hrs Per Day: .5 hour per day Rehab Potential: Good Barriers to Learning: Mild cognitive deficits Pt/Family Agrees to Plan: Yes Safety Risks/Education Teaching Recipient: Patient Teaching Methods: Demonstration Response to Teaching: Verbalize Understanding Education Topics Provided: Utilization of memory strategies to recall important information Time Speech Therapy Time In: 09:15 Speech Therapy Time Out: 09:30 Total Billed Time: 15 Billed Treatment Time 1, CRISPIN Tamayo Jul 06, 2019 13:13
--- NOTE | 2019-07-06 14:16 | NUR ---
CM/SS ADMISSION Met with patient who was admitted to ARU 07/05/19 post op for Right Total Knee. Comorbidities include, in part, osteoarthritis, hematuria, PHILLIP (on CPAP), valvular heart disease, HTN, DM, afib. Patient resided at home with her spouse prior to surgery and intends to return home as before. Patient was independent within her limitations from her compromised knee. DME: Has FWW, CPAP, toilet stool chair, grab bars bathroom. Patient does not have home O2, monitor use/need. HHC: Discussed potential HHC referral for post hospital care plan, patient preferred agency is [facility]. Following for patient progress and appropriateness for HHC services. PCP: Was Dr. Knott, retired. Patient states she is pursuing becoming a patient of Dr. Brittany Felipe DO [place]. INSURANCE: Medicare, Count Includes [facility] PHARMACY: [facility] CONTACTS: Spouse and 2 sons. Mook "Hernandez" Marva [address] [place] [address] Willie Durham, laurie [address] [place], [place] [address] Willie: [phone] Rudolph: [phone] Purpose of the weekly team conference was discussed, patient verbalized understanding of process relative to updates, information, and discharge planning.
[2019-07-06 18:00] VITALS: BP 171/69
--- NOTE | 2019-07-06 18:00 | NUR ---
NO BM YET SO MEDICATED WITH DULCOLAX SUPPOSITORY. UP TO BATHROOM NOW AND VERY SMALL BM, BUT PATIENT FEELS WILL HAVE STOOL SOON. HAS BEEN VOIDING WITHOUT DIFFICULTY SINCE VASQUEZ CATHETER DC'D.
--- NOTE | 2019-07-06 18:30 | NUR ---
SALINE LOCK LEAKING AND NOT PATENT. WILL LEAVE IV OUT UNTIL TUESDAY WHEN SCHEDULED FOR VENOFER AGAIN.
--- NOTE | 2019-07-07 05:00 | NUR ---
pt incont. of multiple large loose black color stools, gabe care et linens chg freq.
[2019-07-07] MEDS: APIXABAN 5 MG (ELIQUIS) TABLET PO SCH ×3 (05:52→17:07)
--- NOTE | 2019-07-07 06:00 | NUR ---
pt assist with amb sba with walker to b/r, pt having difficulty bearing weight on abran legs when amb back to bed . pt assist to chair due to pt unable to stand
[2019-07-07 06:12] VITALS: BP 154/60
[2019-07-07] MEDS: inSUlin ASPART (NovoLOG) 1 UNIT/0.01 ML (CHARGE PER UNIT) SQ SCH ×4 (06:20→20:49)
[2019-07-07] MEDS: LEVOTHYROXINE 100 MCG (LEVOTHROID) TAB PO SCH (06:23)
[2019-07-07] MEDS: MULTIVIT W/MINERALS TAB (THERAGRAN M) PO SCH (06:24)
[2019-07-07] MEDS: doxAzosin 2 MG (CARDURA) TAB PO SCH ×2 (08:10→20:35)
[2019-07-07] MEDS: ASPIRIN E.C. 81 MG (ECOTRIN) TAB PO SCH (08:10)
[2019-07-07] MEDS: LORATADINE (CLARITIN) 10 MG TAB PO SCH (08:10)
[2019-07-07] MEDS: PANTOPRAZOLE 20 MG TABLET (PROTONIX) PO SCH (08:11)
[2019-07-07] MEDS: FLECAINIDE 100 MG (TAMBOCOR) TAB PO SCH ×2 (08:11→20:35)
[2019-07-07] MEDS: cloNIDine 0.2 MG (CATAPRES) TAB PO SCH ×2 (08:11→20:35)
[2019-07-07] MEDS: polyethylene glycoL POWDER 17 GM (MIRALAX) PACK PO SCH ×2 (08:14→20:36)
[2019-07-07] MEDS: SENNA W/DOCUSATE (SENOKOT S) TABLET PO SCH ×2 (08:14→20:36)
[2019-07-07] MEDS: DOCUSATE SODIUM 100 MG (COLACE) CAP PO SCH ×2 (08:14→20:37)
[2019-07-07] MEDS: RT-ALBUTEROL/IPRATROPIUM 3 ML (DUONEB) VIAL INH SCH ×2 (09:23→15:58)
--- NOTE | 2019-07-07 09:24 | NUR ---
PATIENT DID NOT GET HIS 0800 SVN BT DUE TO RT'S BEING IN AN INTUBATION; THEN HAD TO GET BRONCH (ONE RT WAS WITH VENT PATIENT AND THE OTHER RT WENT TO GET THE EQUIPMENT AND THEN ONE RT DID THE BRONCH AND THE OTHER RT WENT TO DO AN ABG ON ANOTHER PATIENT, PLACE WATER ON A VAPOTHERM IN ANOTHER ROOM AND THEN GO DOWN TO ED. Addendum: 07/07/19 at 1608 by JA VALDES RT This should say did not get HER 0800 SVN BT instead of HIM
[2019-07-07] MEDS: oxyCODONE/APAP 5/325MG (PERCOCET 5) TABLET PO PRN ×3 (09:26→22:12)
--- NOTE | 2019-07-07 09:37 | Progress Note ---
Standard Progress Note Progress Notes/Assess & Plan Date Seen by a Provider: Jul 07, 2019 Time Seen by a Provider: 09:36 Progress/Assessment & Plan no complaints Vital Signs Date Time Temp Pulse Resp B/P (MAP) Pulse Ox O2 Delivery O2 Flow Rate FiO2 07/06/19 06:38 92 Room Air 07/06/19 05:31 36.8 83 18 152/60 (90) 94 NIV CPAP 07/05/19 22:01 92 Room Air 07/05/19 21:15 94 Room Air 07/05/19 20:50 36.7 76 18 168/71 (103) 94 Room Air 07/05/19 18:00 36.8 83 16 175/73 (107) 96 Room Air 07/05/19 17:19 Room Air 07/05/19 15:44 93 Room Air 07/05/19 15:15 37.6 82 18 163/62 94 Room Air 07/05/19 12:42 82 07/05/19 12:00 37.6 84 18 163/62 (95) 94 Room Air I & O 07/06/19 07:00 Intake Total 1150 ml Output Total 2225 ml Balance -1075 ml Laboratory Tests Test 07/05/19 16:00 07/06/19 05:05 Range/Units Glucometer 185 H 70-110 MG/DL White Blood Count 9.3 4.3-11.0 10^3/uL Red Blood Count 3.14 L 4.35-5.85 10^6/uL Hemoglobin 8.5 L 11.5-16.0 G/DL Hematocrit 27 L 35-52 % Mean Corpuscular Volume 86 80-99 FL Mean Corpuscular Hemoglobin 27 25-34 PG Mean Corpuscular Hemoglobin Concent 32 32-36 G/DL Red Cell Distribution Width 15.7 H 10.0-14.5 % Platelet Count 217 130-400 10^3/uL Mean Platelet Volume 10.6 H 7.4-10.4 FL Neutrophils (%) (Auto) 83 H 42-75 % Lymphocytes (%) (Auto) 7 L 12-44 % Monocytes (%) (Auto) 10 0-12 % Eosinophils (%) (Auto) 0 0-10 % Basophils (%) (Auto) 0 0-10 % Neutrophils # (Auto) 7.7 1.8-7.8 X 10^3 Lymphocytes # (Auto) 0.6 L 1.0-4.0 X 10^3 Monocytes # (Auto) 0.9 0.0-1.0 X 10^3 Eosinophils # (Auto) 0.0 0.0-0.3 10^3/uL Basophils # (Auto) 0.0 0.0-0.1 10^3/uL Sodium Level 132 L 135-145 MMOL/L Potassium Level 5.0 3.6-5.0 MMOL/L Chloride Level 101 98-107 MMOL/L Carbon Dioxide Level 21 21-32 MMOL/L Anion Gap 10 5-14 MMOL/L Blood Urea Nitrogen 29 H 7-18 MG/DL Creatinine 0.82 0.60-1.30 MG/DL Estimat Glomerular Filtration Rate > 60 BUN/Creatinine Ratio 35 Glucose Level 153 H 70-105 MG/DL Calcium Level 9.1 8.5-10.1 MG/DL Corrected Calcium 9.5 8.5-10.1 MG/DL Total Bilirubin 0.6 0.1-1.0 MG/DL Aspartate Amino Transf (AST/SGOT) 35 H 5-34 U/L Alanine Aminotransferase (ALT/SGPT) 22 0-55 U/L Alkaline Phosphatase 113 40-136 U/L Total Protein 6.9 6.4-8.2 GM/DL Albumin 3.5 3.2-4.5 GM/DL LLE--incision clean and dry. No calf tenderness. s/p LTKA continue PT/OT Final Diagnosis no complaints Vital Signs Date Time Temp Pulse Resp B/P (MAP) Pulse Ox O2 Delivery O2 Flow Rate FiO2 07/07/19 06:12 36.2 78 18 154/60 (91) 96 Room Air 07/06/19 20:45 Room Air 07/06/19 18:00 37.6 89 18 171/69 (103) 94 Room Air 07/06/19 14:36 96 Room Air I & O 07/07/19 07:00 Intake Total 1660 ml Output Total 2075 ml Balance -415 ml Laboratory Tests Test 07/06/19 11:29 07/06/19 16:02 07/06/19 20:39 07/07/19 05:44 Range/Units Glucometer 399 H 174 H 285 H 145 H 70-110 MG/DL LLE--able to actively extend knee. dressing intact. No calf tenderness s/p LTKA continue PT/OT ROSALINA VALDES MD Jul 07, 2019 09:37
--- NOTE | 2019-07-07 11:22 | PM&R Progress Note ---
Subjective HPI/CC On Admission Date Seen by Provider: Jul 07, 2019 Time Seen by Provider: 11:45 Subjective/Events-last exam Patient doing very well Heplock came out so new one will be placed for the IV iron infusion tomorrow BM x 6 now Sugars improved Pain controlled Checked meds and labs Conferred with RN Reviewed therapy notes Review of Systems General: Fatigue Musculoskeletal: leg pain Objective Exam Vital Signs Vital Signs Date Time Temp Pulse Resp B/P (MAP) Pulse Ox O2 Delivery O2 Flow Rate FiO2 07/07/19 15:58 97 Room Air 07/07/19 06:12 36.2 78 18 154/60 (91) Capillary Refill : Less Than 3 Seconds General Appearance: No Apparent Distress, WD/WN, Chronically ill, Obese HEENT: PERRL/EOMI, Normal ENT Inspection, Pharynx Normal Neck: Full Range of Motion, Normal Inspection, Non Tender, Supple, Carotid Bruit Respiratory: Chest Non Tender, Lungs Clear, Normal Breath Sounds, No Accessory Muscle Use, No Respiratory Distress Cardiovascular: Regular Rate, Rhythm, No Edema, No Gallop, No JVD, No Murmur, Normal Peripheral Pulses Gastrointestinal: Normal Bowel Sounds, No Organomegaly, No Pulsatile Mass, Non Tender, Soft Back: Normal Inspection, No CVA Tenderness, No Vertebral Tenderness Extremity: Normal Capillary Refill, Normal Inspection, Normal Range of Motion (except left leg post op), Non Tender, No Calf Tenderness, No Pedal Edema Neurologic/Psychiatric: Alert, Oriented x3, No Motor/Sensory Deficits, spa attendant II- XII Norm as Tested, Depressed Affect Skin: Normal Color, Warm/Dry Lymphatic: No Adenopathy Results/Procedures Lab Patient resulted labs reviewed. FIM Transfers Therapy Code Descriptions/Definitions Functional [place] Measure: 0=Not Assessed/NA 4=Minimal Assistance 1=Total Assistance 5=Supervision or Setup 2=Maximal Assistance 6=Modified [place] 3=Moderate Assistance 7=Complete IndependenceSCALE: Activities may be completed with or without assistive devices. 1-Upstoudyqn-rbjvncw completes the activity by him/herself with no assistance from a helper. 5-Set-up or Clean-up Assistance-helper sets up or cleans up; patient completes activity. [place] assists only prior to or following the activity. 4-Supervision or Touching Assistance-helper provides verbal cues and/or touching/steadying and/or contact guard assistance as patient completes activity. Assistance may be provided throughout the activity or intermittently. 3-Partial/Moderate Assistance-helper does LESS THAN HALF the effort. [place] lifts, holds or supports trunk or limbs, but provides less than half the effort. 2-Substantial/Maximal Assistance-helper does MORE THAN HALF the effort. [place] lifts or holds trunk or limbs and provides more than half the effort. 3-Ncuzobnmc-xhxnyv does ALL the effort. Patient does none of the effort to complete the activity. Or, the assistance of 2 or more helpers is required for the patient to complete the activity. If activity was not attempted, code reason: 7-Patient Refused. 9-Not Applicable-not attempted and the patient did not perform the activity before the current illness, exacerbation or injury. 10-Not Attempted due to Environmental Limitations-(lack of equipment, weather restraints, etc.). 88-Not Attempted due to Medical Conditions or Safety Concerns. Roll Left to Right (QC): 3 Sit to Lying (QC): 3 (assist with left leg to get into bed.) Sit to Stand (QC): 3 Chair/Cbd-ul-Bkscg Xfer(QC): 3 Car Transfer (QC): 5 Gait Training Does the Patient Walk?: Yes Walk 10 feet (QC): 4 Walk 50 ft with 2 Turns(QC): 4 Walk 150 ft (QC): 88 (unableto walk this distance) Walking 10ft/uneven surface-QC: 4 Gait Persons Needed: 1 Gait Assistive Device: FWW Wheelchair Training Does the Pt Use a Wheelchair?: No Stair Training Stair Training: Handrails/: uses walker #of Steps: 2 1 Step (curb) (QC): 4 4 Steps (QC): 88 12 Steps (QC): 88 Stairs: Pattern: Step to Balance Picking up an Object (QC): 88 ADL-Treatment Eating (QC): 6 Oral Hygiene (QC): 7 Shower/Bathe Self (QC): 3 (CGA in stance. Pt requires assist with BLE distal to knees.) Upper Body Dressing (QC): 5 (s/u) Lower Body Dressing (QC): 2 (Pt requires assist threading BLE into undergarments. Pt then able to thread BLE into pant legs and completes hiking with CGA. ) On/Off Footwear (QC): 3 (Pt able to doff socks with min A R side, pt educated on use of dressing stick to doff and sock aide to don. Pt educated on continuation of attempting sock don/ doffing without AE, but equipment use for increased IND.) Toileting Hygiene (QC): 4 (CGA in stance.) Toilet Transfer (QC): 4 (CGA, use of walker to BSC.) Assessment/Plan Assessment and Plan Assess & Plan/Chief Complaint Assessment: s/p left TKA Severe iron deficiency anemia s/p severe constipation DM labile HTN AF PHILLIP on CPAP CRI Plan: IV iron IRF Improved (1) Status post left knee replacement (2) Hematuria (3) Delgado catheter in place (4) Postoperative nausea (5) PHILLIP on CPAP (6) Valvular heart disease (7) Hypertension Status: Chronic (8) Hyperglycemia (9) Diabetes mellitus Status: Chronic (10) Urinary retention (11) Atrial fibrillation Status: Chronic (12) Osteoarthritis of left knee (13) Anemia due to acute blood loss Status: Acute (14) Anticoagulant prescribed Status: Chronic (15) Atrial fibrillation Status: Acute HEATHER HOOKS DO Jul 07, 2019 11:22
--- NOTE | 2019-07-07 12:16 | Physical Therapy Daily Note ---
PT Daily Note-Current Subjective Pt agreeable to PT session. States she is feeling "so-so". States just aches L knee, did have pain meds earlier. Nursing states pt had episode of extreme weakness in LE's last night requiring physical assist to recover from legs going out from under her so have been providing a little more cautiousness during amb. Pain Numeric Pain Scale: 0-No Pain Comment: aching L knee, no pain Appearance Pt sitting up in recliner before and after therapy session, call light, phone and bedside table within reach. Nurse taking glucose level during session, states it is 262 and that pt will get insulin in a bit Mental Status Patient Orientation: Person, Place, Time, Eyes Open, Situation Transfers SCALE: Activities may be completed with or without assistive devices. 2-Uosyzcxsfz-cgakoqi completes the activity by him/herself with no assistance from a helper. 5-Set-up or Clean-up Assistance-helper sets up or cleans up; patient completes activity. [place] assists only prior to or following the activity. 4-Supervision or Touching Assistance-helper provides verbal cues and/or touching/steadying and/or contact guard assistance as patient completes activity. Assistance may be provided throughout the activity or intermittently. 3-Partial/Moderate Assistance-helper does LESS THAN HALF the effort. [place] lifts, holds or supports trunk or limbs, but provides less than half the effort. 2-Substantial/Maximal Assistance-helper does MORE THAN HALF the effort. [place] lifts or holds trunk or limbs and provides more than half the effort. 2-Wmjthgxjh-phfewi does ALL the effort. Patient does none of the effort to complete the activity. Or, the assistance of 2 or more helpers is required for the patient to complete the activity. If activity was not attempted, code reason: 7-Patient Refused. 9-Not Applicable-not attempted and the patient did not perform the activity before the current illness, exacerbation or injury. 10-Not Attempted due to Environmental Limitations-(lack of equipment, weather restraints, etc.). 88-Not Attempted due to Medical Conditions or Safety Concerns. Sit to Stand (QC): 4 (SBA) good technique for hand placement after skilled inst provided, effort to stand, slightly uncontrolled descent to sit Weight Bearing Right Lower Extremity: Right Full Weight Bearing Left Lower Extremity: Left Weight Bearing/Tolerated Gait Training Does the Patient Walk?: Yes Distance: 160 x2 Walk 10 feet (QC): 4 Walk 50 ft with 2 Turns(QC): 4 Walk 150 ft (QC): 4 Gait Persons Needed: 2 (CGA with gait belt from TRUCK GUARD, following with w/c from tech due to pt's episode last night with legs collapsing) Gait Assistive Device: FWW 1st gait distance fair step length, decreased stance time LLE and step height. 2nd gait distance inst to pt with pt~following exaggerated stepping with increased hip/knee flexion and heel strike. Not LOB during gait Treatments education, safety, transfers, gait, strength, balance, functional mobility, activity tolerance Assessment Current Status: Good Progress PT Short Term Goals Short Term Goals Time Frame: Jul 12, 2019 Sit to lyin Lying to sitting on side of be: 4 Sit to stand: 4 Walk 150 feet: 4 PT Detention Goals Beater Machine Operator Goals PT Detention Goals Time Frame: Jul 19, 2019 Roll Left & Right (QC): 6 Sit to Lying (QC): 6 Lying-Sitting on Side/Bed(QC): 6 Sit to Stand (QC): 6 Chair/Wpn-ef-Pgrrl Xfer(QC): 6 Toilet Transfer (QC): 6 Car Transfer (QC): 5 Does the Patient Walk: Yes Walk 10 feet (QC): 6 Walk 50ft with 2 Turns (QC): 6 Walk 150 ft (QC): 6 Walking 10ft on Uneven Surface: 5 1 Step (curb) (QC): 5 4 Steps (QC): 5 12 Steps (QC): 9 Picking up an Object (QC): 9 Does the Pt use WC or Scooter?: No PT Plan Treatment/Plan Treatment Plan: Continue Plan of Care Treatment Plan: Bed Mobility, Education, Functional Activity Devika, Functional Strength, Group Therapy, Gait, Safety, Therapeutic Exercise, Transfers Treatment Duration: Jul 19, 2019 Frequency: At least 5 of 7 days/Wk (IRF) Estimated Hrs Per Day: 1.5 hours per day Patient and/or Family Agrees t: Yes Safety Risks/Education Patient Education: Gait Training, Transfer Techniques, Reviewed Use of Ice, Safety Issues Teaching Recipient: Patient Teaching Methods: Discussion Response to Teaching: Verbalize Understanding, Return Demonstration Time/GCodes Time In: 1100 Time Out: 1125 Total Billed Treatment Time: 25 Total Billed Treatment 1 visit, GT x2 units SUMAN BAUTISTA PTA Jul 07, 2019 12:16
--- NOTE | 2019-07-07 12:39 | NUR ---
PATIENT STATES THAT SHE ALREADY REMOVED SCOPOLAMINE PATCH.
[2019-07-07] MEDS ORDERED: PATCH REMOVAL TP NR (13:45)
--- NOTE | 2019-07-07 15:43 | NUR ---
DR. LINN TO THE FLOOR WITH ORDERS TO DC ASA... CONTINUE ELIQUIS.
--- NOTE | 2019-07-07 16:06 | NUR ---
patient had wheezing before and after the tx; she also stated that she is starting to cough up yellow phlegm.
--- NOTE | 2019-07-07 16:27 | Progress Note - Cardiology ---
Cardiology SOAP Progress Note Subjective: No cp or palp or syncope No shortness of breath at rest Gen weakness and malaise N/V have resolved Reports poor appetite Objective: I&O/Vital Signs 07/07/19 07/07/19 07/07/19 06:12 09:44 15:58 Temp 36.2 Pulse 78 Resp 18 B/P (MAP) 154/60 (91) Pulse Ox 96 97 O2 Delivery Room Air Room Air Room Air 07/07/19 00:00 Intake Total 1120 ml Output Total 1875 ml Balance -755 ml Weight (Pounds): 226 Weight (Ounces): 4.0 Weight (Calculated Kilograms): 102.372156 Constitutional: AAO x 3, well-developed, well-nourished Respiratory: No accessory muscle use; other (good bilat air entry) Cardiovascular: regular rate-rhythm, S1 and S2, systolic murmur (2/6 AARON at card base) Gastrointestional: No tender, No guarding, No rebound; audible bowel sounds Extremities: No clubbing, No cyanosis, No significant edema Neurologic/Psychiatric: oriented x 3, other (moves all limbs ) Skin: warm/dry; No rash on exposed areas, No ulcerations on exposed areas Results/Procedures: Labs Laboratory Tests 07/06/19 20:39: Glucometer 285H 07/07/19 05:44: Glucometer 145H 07/07/19 11:09: Glucometer 262H Laboratory Tests 07/06/19 05:05 A/P: Assessment: S/P total left knee arthroplasty on 07-04-[address] Pagan Post-op anemia, managed by Dr Felipe Hypertension Paroxysmal atrial flutter/fibrillation currently controlled on therapy with flecainide. This has been managed by Dr Eid in EP consult in [place], [place] Echo of Jun 27, 2018 LVEF 60-65%. LA mildly dilated. Mild MR. PASP 30 mmHg Chronic Eliquis anticoag No angiographically significant coronary artery disease. Normal global left ventricular systolic function, no significant mitral regurgitation, and normal left ventricular end-diastolic pressure on cardiac catheterization in October 2011. MPI of Jun 06, 2018 showed no evidence of any significant myocardial ischemia or infarction. LVEF 74% H/O Hypertension Maturity onset diabetes mellitus, being followed by her Nuclear Medicine Officer, Dr. Farias. Hypothyroidism being treated with thyroid replacement therapy. Potassium level at the top limits of normal to minimally elevated. Cessation of ISATU inhibitors does not seem to have changed this very much. Her customer trainer has advised continuing ISATU-inhib therapy Hyperlipidemia being treated with statins and being followed by her Nuclear Medicine Officer, Dr. Farias Mild bilat internal carotid dz per u/s of July 2018 Elevated BMI of approx 38 PHILLIP diagnosed on sleep study of 07/17/16, being followed by Dr Bonds Plan: * Continue apixaban (PAF) * D/c ASA (no known CAD) * Continue anti-htn regimen * Monitor labs from time to time CHARLES LINN MD FACP FACC CCDS Jul 07, 2019 16:27
[2019-07-07] MEDS ORDERED: hydrALAZINE (APRESOLINE) 25 MG TAB PO PRN (17:30)
[2019-07-07] MEDS: ENALAPRIL 10 MG (VASOTEC) TAB PO SCH (17:39)
[2019-07-07 18:01] VITALS: BP 186/67
--- NOTE | 2019-07-07 18:01 | NUR ---
BP 186/67. PATIENT STATES THAT SHE NORMALLY TAKES ENALAPRIL AT HOME IN ADDITION TO CARDURA, CATAPRES, AND CARDIZEM. DR. LINN NOTIFIED WITH ORDERS TO START ENALAPRIL- 10 MG PO NOW AND DAILY AND HYDRALAZINE- 50 MG PO Q8H PRN SBP GREATER THAN 180.
[2019-07-07 20:43] VITALS: BP 194/65
[2019-07-08] MEDS: RT-ALBUTEROL/IPRATROPIUM 3 ML (DUONEB) VIAL INH SCH ×3 (00:17→14:32)
[2019-07-08 01:49] VITALS: BP 149/78
[2019-07-08] MEDS: oxyCODONE/APAP 5/325MG (PERCOCET 5) TABLET PO PRN ×3 (05:22→18:01)
[2019-07-08 06:43] VITALS: BP 179/76
[2019-07-08] MEDS: inSUlin ASPART (NovoLOG) 1 UNIT/0.01 ML (CHARGE PER UNIT) SQ SCH ×2 (06:46→12:14)
[2019-07-08] MEDS: cloNIDine 0.2 MG (CATAPRES) TAB PO SCH ×2 (07:01→20:45)
[2019-07-08] MEDS: LEVOTHYROXINE 100 MCG (LEVOTHROID) TAB PO SCH (07:01)
[2019-07-08] MEDS: APIXABAN 5 MG (ELIQUIS) TABLET PO SCH ×2 (07:01→17:00)
[2019-07-08] MEDS: MULTIVIT W/MINERALS TAB (THERAGRAN M) PO SCH (07:01)
[2019-07-08] MEDS: PANTOPRAZOLE 20 MG TABLET (PROTONIX) PO SCH (08:01)
[2019-07-08] MEDS: ENALAPRIL 10 MG (VASOTEC) TAB PO SCH (08:01)
[2019-07-08] MEDS: LORATADINE (CLARITIN) 10 MG TAB PO SCH (08:01)
[2019-07-08] MEDS: doxAzosin 2 MG (CARDURA) TAB PO SCH ×2 (08:01→20:45)
[2019-07-08] MEDS: FLECAINIDE 100 MG (TAMBOCOR) TAB PO SCH ×2 (08:01→20:45)
[2019-07-08] MEDS: IRON SUCROSE 200 MG/10 ML (VENOFER) VIAL IV SCH (08:02)
[2019-07-08] MEDS: DOCUSATE SODIUM 100 MG (COLACE) CAP PO SCH ×2 (08:03→20:45)
[2019-07-08] MEDS: SENNA W/DOCUSATE (SENOKOT S) TABLET PO SCH ×2 (08:03→20:45)
[2019-07-08] MEDS: polyethylene glycoL POWDER 17 GM (MIRALAX) PACK PO SCH ×2 (08:03→20:45)
[2019-07-08 08:09] VITALS: BP 174/71
--- NOTE | 2019-07-08 08:51 | Progress Note - Urology ---
Progress Note-Urology Progress Notes/Assess & Plan Progress/Assessment & Plan NO GROSS HEMATURIA, NO VOIDING SYMPTOMS Final Diagnosis GROSS HEMATURIA (RESOLVED) EUSEBIO VICENTE MD Jul 08, 2019 08:51
--- NOTE | 2019-07-08 10:02 | Progress Note ---
Standard Progress Note Progress Notes/Assess & Plan Date Seen by a Provider: Jul 08, 2019 Time Seen by a Provider: 10:00 Progress/Assessment & Plan no complaints Vital Signs Date Time Temp Pulse Resp B/P (MAP) Pulse Ox O2 Delivery O2 Flow Rate FiO2 07/06/19 06:38 92 Room Air 07/06/19 05:31 36.8 83 18 152/60 (90) 94 NIV CPAP 07/05/19 22:01 92 Room Air 07/05/19 21:15 94 Room Air 07/05/19 20:50 36.7 76 18 168/71 (103) 94 Room Air 07/05/19 18:00 36.8 83 16 175/73 (107) 96 Room Air 07/05/19 17:19 Room Air 07/05/19 15:44 93 Room Air 07/05/19 15:15 37.6 82 18 163/62 94 Room Air 07/05/19 12:42 82 07/05/19 12:00 37.6 84 18 163/62 (95) 94 Room Air I & O 07/06/19 07:00 Intake Total 1150 ml Output Total 2225 ml Balance -1075 ml Laboratory Tests Test 07/05/19 16:00 07/06/19 05:05 Range/Units Glucometer 185 H 70-110 MG/DL White Blood Count 9.3 4.3-11.0 10^3/uL Red Blood Count 3.14 L 4.35-5.85 10^6/uL Hemoglobin 8.5 L 11.5-16.0 G/DL Hematocrit 27 L 35-52 % Mean Corpuscular Volume 86 80-99 FL Mean Corpuscular Hemoglobin 27 25-34 PG Mean Corpuscular Hemoglobin Concent 32 32-36 G/DL Red Cell Distribution Width 15.7 H 10.0-14.5 % Platelet Count 217 130-400 10^3/uL Mean Platelet Volume 10.6 H 7.4-10.4 FL Neutrophils (%) (Auto) 83 H 42-75 % Lymphocytes (%) (Auto) 7 L 12-44 % Monocytes (%) (Auto) 10 0-12 % Eosinophils (%) (Auto) 0 0-10 % Basophils (%) (Auto) 0 0-10 % Neutrophils # (Auto) 7.7 1.8-7.8 X 10^3 Lymphocytes # (Auto) 0.6 L 1.0-4.0 X 10^3 Monocytes # (Auto) 0.9 0.0-1.0 X 10^3 Eosinophils # (Auto) 0.0 0.0-0.3 10^3/uL Basophils # (Auto) 0.0 0.0-0.1 10^3/uL Sodium Level 132 L 135-145 MMOL/L Potassium Level 5.0 3.6-5.0 MMOL/L Chloride Level 101 98-107 MMOL/L Carbon Dioxide Level 21 21-32 MMOL/L Anion Gap 10 5-14 MMOL/L Blood Urea Nitrogen 29 H 7-18 MG/DL Creatinine 0.82 0.60-1.30 MG/DL Estimat Glomerular Filtration Rate > 60 BUN/Creatinine Ratio 35 Glucose Level 153 H 70-105 MG/DL Calcium Level 9.1 8.5-10.1 MG/DL Corrected Calcium 9.5 8.5-10.1 MG/DL Total Bilirubin 0.6 0.1-1.0 MG/DL Aspartate Amino Transf (AST/SGOT) 35 H 5-34 U/L Alanine Aminotransferase (ALT/SGPT) 22 0-55 U/L Alkaline Phosphatase 113 40-136 U/L Total Protein 6.9 6.4-8.2 GM/DL Albumin 3.5 3.2-4.5 GM/DL LLE--incision clean and dry. No calf tenderness. s/p LTKA continue PT/OT Final Diagnosis feeling better Vital Signs Date Time Temp Pulse Resp B/P (MAP) Pulse Ox O2 Delivery O2 Flow Rate FiO2 07/08/19 09:50 Room Air 07/08/19 08:09 86 174/71 (105) 07/08/19 07:00 97 Room Air 07/08/19 06:43 37.0 75 20 179/76 (110) 96 Room Air 07/08/19 01:49 72 149/78 (101) 07/07/19 20:43 80 194/65 (108) 07/07/19 20:35 Room Air 07/07/19 18:01 37.4 84 18 186/67 (106) 96 Room Air 07/07/19 15:58 97 Room Air I & O 07/08/19 07:00 Intake Total 1540 ml Balance 1540 ml Laboratory Tests Test 07/07/19 11:09 2/22/20 16:16 07/07/19 20:41 07/08/19 01:49 Range/Units Glucometer 262 H 70 305 H 83 70-110 MG/DL Test 07/08/19 06:42 Range/Units Glucometer 163 H 70-110 MG/DL LLE--dressing intact No calf tenderness. able to perform SLR. flexion to 90 progressing well s/p LTKA continue PT/OT ROSALINA VALDES MD Jul 08, 2019 10:02
[2019-07-08 11:09] VITALS: BP 165/69
--- NOTE | 2019-07-08 11:54 | NUR ---
DR. HOOKS TO THE FLOOR. INFORMED OF WHITE PATCHES ON TONGUE AND C/O MOUTH PAIN. ORDERS TO START DIFLUCAN- 100 MG PO DAILY X3 DAYS AND NYSTATIN SWISH AND SWALLOW X7 DAYS.
[2019-07-08] MEDS: fluCOnazole (DIFLUCAN) 100 MG TAB PO SCH (12:12)
[2019-07-08] MEDS: NYSTATIN ORAL SUSP 5 ML UDC PO SCH ×3 (12:12→23:05)
--- NOTE | 2019-07-08 12:23 | NUR ---
ALSO... PATIENT REQUESTING TO SWITCH TO HUMALOG- 10 UNITS WITH MEALS INSTEAD OF NOVOLOG SS. DR. JESSEE DEL TORO WITH ABOVE.
--- NOTE | 2019-07-08 15:05 | PM&R Progress Note ---
Subjective HPI/CC On Admission Date Seen by Provider: Jul 08, 2019 Time Seen by Provider: 14:00 Subjective/Events-last exam Patient doing very well Iron infusion tolerated well BM back to regular now Sugars improved and replaced our SSI with hers she uses at home from Endo Lisinopril restarted Nebs still scheduled due to wheezing at times yesterday Uses CPAP at night Incision looks good Pain controlled taking 3 a day Checked meds and labs Conferred with RN Reviewed therapy notes Review of Systems General: Fatigue Musculoskeletal: leg pain Objective Exam Vital Signs Vital Signs Date Time Temp Pulse Resp B/P (MAP) Pulse Ox O2 Delivery O2 Flow Rate FiO2 07/08/19 18:10 36.4 85 20 156/62 (93) 97 Room Air Capillary Refill : Less Than 3 Seconds General Appearance: No Apparent Distress, WD/WN, Chronically ill, Obese HEENT: PERRL/EOMI, Normal ENT Inspection, Pharynx Normal Neck: Full Range of Motion, Normal Inspection, Non Tender, Supple, Carotid Bruit Respiratory: Chest Non Tender, Lungs Clear, Normal Breath Sounds, No Accessory Muscle Use, No Respiratory Distress Cardiovascular: Regular Rate, Rhythm, No Edema, No Gallop, No JVD, No Murmur, Normal Peripheral Pulses Gastrointestinal: Normal Bowel Sounds, No Organomegaly, No Pulsatile Mass, Non Tender, Soft Back: Normal Inspection, No CVA Tenderness, No Vertebral Tenderness Extremity: Normal Capillary Refill, Normal Inspection, Normal Range of Motion (except left leg post op), Non Tender, No Calf Tenderness, No Pedal Edema Neurologic/Psychiatric: Alert, Oriented x3, No Motor/Sensory Deficits, combustion engineer II- XII Norm as Tested, Depressed Affect Skin: Normal Color, Warm/Dry Lymphatic: No Adenopathy Results/Procedures Lab Patient resulted labs reviewed. FIM Transfers Therapy Code Descriptions/Definitions Functional [place] Measure: 0=Not Assessed/NA 4=Minimal Assistance 1=Total Assistance 5=Supervision or Setup 2=Maximal Assistance 6=Modified [place] 3=Moderate Assistance 7=Complete IndependenceSCALE: Activities may be completed with or without assistive devices. 6-Pnsoxpfrxg-urfkjzm completes the activity by him/herself with no assistance from a helper. 5-Set-up or Clean-up Assistance-helper sets up or cleans up; patient completes activity. [place] assists only prior to or following the activity. 4-Supervision or Touching Assistance-helper provides verbal cues and/or touching/steadying and/or contact guard assistance as patient completes activity. Assistance may be provided throughout the activity or intermittently. 3-Partial/Moderate Assistance-helper does LESS THAN HALF the effort. [place] lifts, holds or supports trunk or limbs, but provides less than half the effort. 2-Substantial/Maximal Assistance-helper does MORE THAN HALF the effort. [place] lifts or holds trunk or limbs and provides more than half the effort. 5-Dmookooen-zhgrvp does ALL the effort. Patient does none of the effort to complete the activity. Or, the assistance of 2 or more helpers is required for the patient to complete the activity. If activity was not attempted, code reason: 7-Patient Refused. 9-Not Applicable-not attempted and the patient did not perform the activity before the current illness, exacerbation or injury. 10-Not Attempted due to Environmental Limitations-(lack of equipment, weather restraints, etc.). 88-Not Attempted due to Medical Conditions or Safety Concerns. Roll Left to Right (QC): 3 Sit to Lying (QC): 3 (assist with left leg to get into bed.) Sit to Stand (QC): 4 (SBA) Chair/Qap-fo-Oyonh Xfer(QC): 3 Car Transfer (QC): 5 Gait Training Does the Patient Walk?: Yes Distance: 160 x2 Walk 10 feet (QC): 4 Walk 50 ft with 2 Turns(QC): 4 Walk 150 ft (QC): 4 Walking 10ft/uneven surface-QC: 4 Gait Persons Needed: 2 (CGA with gait belt from GEOGRAPHIC INFORMATION SYSTEMS DIRECTOR, following with w/c from tech due to pt's episode last night with legs collapsing) Gait Assistive Device: FWW Wheelchair Training Does the Pt Use a Wheelchair?: No Stair Training Stair Training: Handrails/: uses walker #of Steps: 2 1 Step (curb) (QC): 4 4 Steps (QC): 88 12 Steps (QC): 88 Stairs: Pattern: Step to Balance Picking up an Object (QC): 88 ADL-Treatment Eating (QC): 6 Oral Hygiene (QC): 7 Shower/Bathe Self (QC): 3 (CGA in stance. Pt requires assist with BLE distal to knees.) Upper Body Dressing (QC): 5 (s/u) Lower Body Dressing (QC): 2 (Pt requires assist threading BLE into undergarments. Pt then able to thread BLE into pant legs and completes hiking with CGA. ) On/Off Footwear (QC): 3 (Pt able to doff socks with min A R side, pt educated on use of dressing stick to doff and sock aide to don. Pt educated on continuation of attempting sock don/ doffing without AE, but equipment use for increased IND.) Toileting Hygiene (QC): 4 (CGA in stance.) Toilet Transfer (QC): 4 (CGA, use of walker to BSC.) Assessment/Plan Assessment and Plan Assess & Plan/Chief Complaint Assessment: s/p left TKA Severe iron deficiency anemia s/p severe constipation DM labile HTN AF PHILLIP on CPAP CRI Plan: IV iron IRF Improved Pain control Nebs CPAP (1) Status post left knee replacement (2) Hematuria (3) Delgado catheter in place (4) Postoperative nausea (5) PHILLIP on CPAP (6) Valvular heart disease (7) Hypertension Status: Chronic (8) Hyperglycemia (9) Diabetes mellitus Status: Chronic (10) Urinary retention (11) Atrial fibrillation Status: Chronic (12) Osteoarthritis of left knee (13) Anemia due to acute blood loss Status: Acute (14) Anticoagulant prescribed Status: Chronic (15) Atrial fibrillation Status: Acute HEATHER HOOKS DO Jul 08, 2019 15:05
--- NOTE | 2019-07-08 16:00 | NUR ---
DR. LINN TO THE FLOOR WITH ORDERS TO INCREASE CARDURA TO 4 MG PO BID. BMP AND MAG IN AM.
--- NOTE | 2019-07-08 16:45 | Progress Note - Cardiology ---
Cardiology SOAP Progress Note Subjective: No cp or palp or syncope or shortness of breath at rest Feels a little stronger Denies swelling No n/v/d Objective: I&O/Vital Signs 07/08/19 07/08/19 07/08/19 07/08/19 06:43 07:00 08:09 09:50 Temp 37.0 Pulse 75 86 Resp 20 B/P (MAP) 179/76 (110) 174/71 (105) Pulse Ox 96 97 O2 Delivery Room Air Room Air Room Air 07/08/19 07/08/19 11:09 14:33 Pulse 77 B/P (MAP) 165/69 (101) Pulse Ox 98 O2 Delivery Room Air 07/08/19 00:00 Intake Total 1040 ml Balance 1040 ml Weight (Pounds): 226 Weight (Ounces): 4.0 Weight (Calculated Kilograms): 102.654122 Constitutional: AAO x 3, well-developed, well-nourished Respiratory: No accessory muscle use; other (good bilat air entry) Cardiovascular: regular rate-rhythm, S1 and S2, systolic murmur (2/6 AARON at card base) Gastrointestional: No tender, No guarding, No rebound; audible bowel sounds Extremities: No clubbing, No cyanosis, No significant edema Neurologic/Psychiatric: oriented x 3, other (moves all limbs ) Skin: warm/dry; No rash on exposed areas, No ulcerations on exposed areas Results/Procedures: Labs Laboratory Tests 07/07/19 20:41: Glucometer 305H 07/08/19 01:49: Glucometer 83 07/08/19 06:42: Glucometer 163H 07/08/19 11:02: Glucometer 339H 07/08/19 15:55: Glucometer 261H A/P: Assessment: Hypertension S/P total left knee arthroplasty on 07-04-[address] Pagan Post-op anemia, managed by Dr Felipe Paroxysmal atrial flutter/fibrillation currently controlled on therapy with flec ainide. This has been managed by Dr Eid in EP consult in [place], [place] Echo of Jun 27, 2018 LVEF 60-65%. LA mildly dilated. Mild MR. PASP 30 mmHg Chronic Eliquis anticoag No angiographically significant coronary artery disease. Normal global left ventricular systolic function, no significant mitral regurgitation, and normal left ventricular end-diastolic pressure on cardiac catheterization in October 2011. MPI of Jun 06, 2018 showed no evidence of any significant myocardial ischemia or infarction. LVEF 74% H/O Hypertension Maturity onset diabetes mellitus, being followed by her Assistant Clinical Nurse Manager, Dr. Farias. Hypothyroidism being treated with thyroid replacement therapy. Potassium level at the top limits of normal to minimally elevated. Cessation of ISATU inhibitors does not seem to have changed this very much. Her manager mission has advised continuing ISATU-inhib therapy Hyperlipidemia being treated with statins and being followed by her Assistant Clinical Nurse Manager, Dr. Farias Mild bilat internal carotid dz per u/s of July 2018 Elevated BMI of approx 38 PHILLIP diagnosed on sleep study of 07/17/16, being followed by Dr Bonds Plan: * Increase Cardura for better bp contro * ISATU-inhib added back to regimen * Monitor labs CHARLES LINN MD FACP FAC CCDS Jul 08, 2019 16:45
[2019-07-08] MEDS: inSUlin ASPART (NovoLOG) 1 UNIT/0.01 ML (CHARGE PER UNIT) SC SCH (17:01)
[2019-07-08 18:10] VITALS: BP 156/62
[2019-07-08] MEDS: CATHETER FLUSH 10 ML SYR IV SCH (20:44)
[2019-07-09] MEDS: RT-ALBUTEROL/IPRATROPIUM 3 ML (DUONEB) VIAL INH SCH ×4 (02:56→21:42)
[2019-07-09 05:37] VITALS: BP 188/63
[2019-07-09 05:55] LABS: BASOPHILS % (AUTO) 0 % (0-10); EOSINOPHILS # (AUTO) 0.4 10^3/uL (0.0-0.3); EOSINOPHILS % (AUTO) 5 % (0-10); HEMATOCRIT 29 % (35-52); LYMPHOCYTES # (AUTO) 1.3 X 10^3 (1.0-4.0); LYMPHOCYTES % (AUTO) 15 % (12-44); MEAN CORPUSCULAR HEMOGLOBIN 27 PG (25-34); MEAN CORPUSCULAR HGB CONC 32 G/DL (32-36); MEAN CORPUSCULAR VOLUME 86 FL (80-99); MONOCYTES % (AUTO) 11 % (0-12); NEUTROPHILS % (AUTO) 69 % (42-75); PLATELET COUNT 325 10^3/uL (130-400); WHITE BLOOD COUNT 8.6 10^3/uL (4.3-11.0)
[2019-07-09 06:24] LABS: ALANINE AMINOTRANSFERASE 24 U/L (0-55); ALBUMIN 3.4 GM/DL (3.2-4.5); ALKALINE PHOSPHATASE 121 U/L (40-136); BILIRUBIN,TOTAL 0.5 MG/DL (0.1-1.0); BUN/CREATININE RATIO 23; CALCIUM 9.1 MG/DL (8.5-10.1); CARBON DIOXIDE 24 MMOL/L (21-32); CHLORIDE 105 MMOL/L (98-107); CREATININE SERUM 0.73 MG/DL (0.60-1.30); GFR ESTIMATED > 60; GLUCOSE 126 MG/DL (70-105); MAGNESIUM 2.1 MG/DL (1.6-2.4); POTASSIUM 4.4 MMOL/L (3.6-5.0); SODIUM 140 MMOL/L (135-145); TOTAL PROTEIN 6.7 GM/DL (6.4-8.2)
[2019-07-09] MEDS: NYSTATIN ORAL SUSP 5 ML UDC PO SCH ×3 (06:36→18:26)
[2019-07-09] MEDS: LEVOTHYROXINE 100 MCG (LEVOTHROID) TAB PO SCH (06:36)
[2019-07-09] MEDS: MULTIVIT W/MINERALS TAB (THERAGRAN M) PO SCH (06:36)
[2019-07-09] MEDS: CATHETER FLUSH 10 ML SYR IV SCH ×3 (06:36→22:38)
[2019-07-09] MEDS: APIXABAN 5 MG (ELIQUIS) TABLET PO SCH ×2 (06:36→18:26)
[2019-07-09] MEDS: inSUlin ASPART (NovoLOG) 1 UNIT/0.01 ML (CHARGE PER UNIT) SC SCH ×3 (06:37→16:46)
--- NOTE | 2019-07-09 08:04 | Progress Note ---
Standard Progress Note Progress Notes/Assess & Plan Date Seen by a Provider: Jul 09, 2019 Time Seen by a Provider: 08:03 Progress/Assessment & Plan no complaints Vital Signs Date Time Temp Pulse Resp B/P (MAP) Pulse Ox O2 Delivery O2 Flow Rate FiO2 07/06/19 06:38 92 Room Air 07/06/19 05:31 36.8 83 18 152/60 (90) 94 NIV CPAP 07/05/19 22:01 92 Room Air 07/05/19 21:15 94 Room Air 07/05/19 20:50 36.7 76 18 168/71 (103) 94 Room Air 07/05/19 18:00 36.8 83 16 175/73 (107) 96 Room Air 07/05/19 17:19 Room Air 07/05/19 15:44 93 Room Air 07/05/19 15:15 37.6 82 18 163/62 94 Room Air 07/05/19 12:42 82 07/05/19 12:00 37.6 84 18 163/62 (95) 94 Room Air I & O 07/06/19 07:00 Intake Total 1150 ml Output Total 2225 ml Balance -1075 ml Laboratory Tests Test 07/05/19 16:00 07/06/19 05:05 Range/Units Glucometer 185 H 70-110 MG/DL White Blood Count 9.3 4.3-11.0 10^3/uL Red Blood Count 3.14 L 4.35-5.85 10^6/uL Hemoglobin 8.5 L 11.5-16.0 G/DL Hematocrit 27 L 35-52 % Mean Corpuscular Volume 86 80-99 FL Mean Corpuscular Hemoglobin 27 25-34 PG Mean Corpuscular Hemoglobin Concent 32 32-36 G/DL Red Cell Distribution Width 15.7 H 10.0-14.5 % Platelet Count 217 130-400 10^3/uL Mean Platelet Volume 10.6 H 7.4-10.4 FL Neutrophils (%) (Auto) 83 H 42-75 % Lymphocytes (%) (Auto) 7 L 12-44 % Monocytes (%) (Auto) 10 0-12 % Eosinophils (%) (Auto) 0 0-10 % Basophils (%) (Auto) 0 0-10 % Neutrophils # (Auto) 7.7 1.8-7.8 X 10^3 Lymphocytes # (Auto) 0.6 L 1.0-4.0 X 10^3 Monocytes # (Auto) 0.9 0.0-1.0 X 10^3 Eosinophils # (Auto) 0.0 0.0-0.3 10^3/uL Basophils # (Auto) 0.0 0.0-0.1 10^3/uL Sodium Level 132 L 135-145 MMOL/L Potassium Level 5.0 3.6-5.0 MMOL/L Chloride Level 101 98-107 MMOL/L Carbon Dioxide Level 21 21-32 MMOL/L Anion Gap 10 5-14 MMOL/L Blood Urea Nitrogen 29 H 7-18 MG/DL Creatinine 0.82 0.60-1.30 MG/DL Estimat Glomerular Filtration Rate > 60 BUN/Creatinine Ratio 35 Glucose Level 153 H 70-105 MG/DL Calcium Level 9.1 8.5-10.1 MG/DL Corrected Calcium 9.5 8.5-10.1 MG/DL Total Bilirubin 0.6 0.1-1.0 MG/DL Aspartate Amino Transf (AST/SGOT) 35 H 5-34 U/L Alanine Aminotransferase (ALT/SGPT) 22 0-55 U/L Alkaline Phosphatase 113 40-136 U/L Total Protein 6.9 6.4-8.2 GM/DL Albumin 3.5 3.2-4.5 GM/DL LLE--incision clean and dry. No calf tenderness. s/p LTKA continue PT/OT Final Diagnosis feeling good. Would like to go home soon Vital Signs Date Time Temp Pulse Resp B/P (MAP) Pulse Ox O2 Delivery O2 Flow Rate FiO2 07/09/19 05:37 36.9 81 18 188/63 (104) 97 Room Air 07/08/19 21:46 Room Air 07/08/19 18:10 36.4 85 20 156/62 (93) 97 Room Air 07/08/19 14:33 98 Room Air 07/08/19 11:09 77 165/69 (101) 07/08/19 09:50 Room Air 07/08/19 08:09 86 174/71 (105) I & O 07/09/19 07:00 Intake Total 1320 ml Balance 1320 ml Laboratory Tests Test 07/08/19 11:02 07/08/19 15:55 07/09/19 05:35 Range/Units Glucometer 339 H 261 H 70-110 MG/DL White Blood Count 8.6 4.3-11.0 10^3/uL Red Blood Count 3.31 L 4.35-5.85 10^6/uL Hemoglobin 9.0 L 11.5-16.0 G/DL Hematocrit 29 L 35-52 % Mean Corpuscular Volume 86 80-99 FL Mean Corpuscular Hemoglobin 27 25-34 PG Mean Corpuscular Hemoglobin Concent 32 32-36 G/DL Red Cell Distribution Width 16.0 H 10.0-14.5 % Platelet Count 325 130-400 10^3/uL Mean Platelet Volume 10.0 7.4-10.4 FL Neutrophils (%) (Auto) 69 42-75 % Lymphocytes (%) (Auto) 15 12-44 % Monocytes (%) (Auto) 11 0-12 % Eosinophils (%) (Auto) 5 0-10 % Basophils (%) (Auto) 0 0-10 % Neutrophils # (Auto) 6.0 1.8-7.8 X 10^3 Lymphocytes # (Auto) 1.3 1.0-4.0 X 10^3 Monocytes # (Auto) 1.0 0.0-1.0 X 10^3 Eosinophils # (Auto) 0.4 H 0.0-0.3 10^3/uL Basophils # (Auto) 0.0 0.0-0.1 10^3/uL Sodium Level 140 135-145 MMOL/L Potassium Level 4.4 3.6-5.0 MMOL/L Chloride Level 105 98-107 MMOL/L Carbon Dioxide Level 24 21-32 MMOL/L Anion Gap 11 5-14 MMOL/L Blood Urea Nitrogen 17 7-18 MG/DL Creatinine 0.73 0.60-1.30 MG/DL Estimat Glomerular Filtration Rate > 60 BUN/Creatinine Ratio 23 Glucose Level 126 H 70-105 MG/DL Calcium Level 9.1 8.5-10.1 MG/DL Corrected Calcium 9.6 8.5-10.1 MG/DL Magnesium Level 2.1 1.6-2.4 MG/DL Total Bilirubin 0.5 0.1-1.0 MG/DL Aspartate Amino Transf (AST/SGOT) 19 5-34 U/L Alanine Aminotransferase (ALT/SGPT) 24 0-55 U/L Alkaline Phosphatase 121 40-136 U/L Total Protein 6.7 6.4-8.2 GM/DL Albumin 3.4 3.2-4.5 GM/DL LLE--no calf tenderness. Neg Karolina's s/p DARION PT/OT ROSALINA VALDES MD Jul 09, 2019 08:04
--- NOTE | 2019-07-09 08:30 | PM&R Progress Note ---
Subjective HPI/CC On Admission Date Seen by Provider: Jul 09, 2019 Time Seen by Provider: 08:45 Subjective/Events-last exam Hgb 9.0. Creatinine is 0.73. Doing very well. Asking when she can go home. Overall feels much better. Uses CPAP at night Incision looks good Pain controlled taking 3 a day Checked meds and labs Conferred with RN Reviewed therapy notes Review of Systems General: Fatigue Musculoskeletal: leg pain Objective Exam Vital Signs Vital Signs Date Time Temp Pulse Resp B/P (MAP) Pulse Ox O2 Delivery O2 Flow Rate FiO2 07/10/19 05:43 36.6 79 18 165/70 (101) 97 NIV CPAP Capillary Refill : Less Than 3 Seconds General Appearance: No Apparent Distress, WD/WN, Chronically ill, Obese HEENT: PERRL/EOMI, Normal ENT Inspection, Pharynx Normal Neck: Full Range of Motion, Normal Inspection, Non Tender, Supple, Carotid Bruit Respiratory: Chest Non Tender, Lungs Clear, Normal Breath Sounds, No Accessory Muscle Use, No Respiratory Distress Cardiovascular: Regular Rate, Rhythm, No Edema, No Gallop, No JVD, No Murmur, Normal Peripheral Pulses Gastrointestinal: Normal Bowel Sounds, No Organomegaly, No Pulsatile Mass, Non Tender, Soft Back: Normal Inspection, No CVA Tenderness, No Vertebral Tenderness Extremity: Normal Capillary Refill, Normal Inspection, Normal Range of Motion (except left leg post op), Non Tender, No Calf Tenderness, No Pedal Edema Neurologic/Psychiatric: Alert, Oriented x3, No Motor/Sensory Deficits, natural resources specialist II- XII Norm as Tested, Depressed Affect Skin: Normal Color, Warm/Dry Lymphatic: No Adenopathy Results/Procedures Lab Patient resulted labs reviewed. FIM Transfers Therapy Code Descriptions/Definitions Functional [place] Measure: 0=Not Assessed/NA 4=Minimal Assistance 1=Total Assistance 5=Supervision or Setup 2=Maximal Assistance 6=Modified [place] 3=Moderate Assistance 7=Complete IndependenceSCALE: Activities may be completed with or without assistive devices. 8-Sgugnpqadq-llvcjlf completes the activity by him/herself with no assistance from a helper. 5-Set-up or Clean-up Assistance-helper sets up or cleans up; patient completes activity. [place] assists only prior to or following the activity. 4-Supervision or Touching Assistance-helper provides verbal cues and/or touching/steadying and/or contact guard assistance as patient completes activity. Assistance may be provided throughout the activity or intermittently. 3-Partial/Moderate Assistance-helper does LESS THAN HALF the effort. [place] lifts, holds or supports trunk or limbs, but provides less than half the effort. 2-Substantial/Maximal Assistance-helper does MORE THAN HALF the effort. [place] lifts or holds trunk or limbs and provides more than half the effort. 5-Nkrgdgddq-zaftml does ALL the effort. Patient does none of the effort to complete the activity. Or, the assistance of 2 or more helpers is required for the patient to complete the activity. If activity was not attempted, code reason: 7-Patient Refused. 9-Not Applicable-not attempted and the patient did not perform the activity before the current illness, exacerbation or injury. 10-Not Attempted due to Environmental Limitations-(lack of equipment, weather restraints, etc.). 88-Not Attempted due to Medical Conditions or Safety Concerns. Roll Left to Right (QC): 3 Sit to Lying (QC): 3 (assist with left leg to get into bed.) Sit to Stand (QC): 4 (SBA) Chair/Bdr-gq-Aghjq Xfer(QC): 3 Car Transfer (QC): 5 Gait Training Does the Patient Walk?: Yes Distance: 160 x2 Walk 10 feet (QC): 4 Walk 50 ft with 2 Turns(QC): 4 Walk 150 ft (QC): 4 Walking 10ft/uneven surface-QC: 4 Gait Persons Needed: 2 (CGA with gait belt from [employer]ORE [employer], following with w/c from tech due to pt's episode last night with legs collapsing) Gait Assistive Device: FWW Wheelchair Training Does the Pt Use a Wheelchair?: No Stair Training Stair Training: Handrails/: uses walker #of Steps: 2 1 Step (curb) (QC): 4 4 Steps (QC): 88 12 Steps (QC): 88 Stairs: Pattern: Step to Balance Picking up an Object (QC): 88 ADL-Treatment Eating (QC): 6 Oral Hygiene (QC): 7 Shower/Bathe Self (QC): 3 (CGA in stance. Pt requires assist with BLE distal to knees.) Upper Body Dressing (QC): 5 (s/u) Lower Body Dressing (QC): 2 (Pt requires assist threading BLE into undergarments. Pt then able to thread BLE into pant legs and completes hiking with CGA. ) On/Off Footwear (QC): 3 (Pt able to doff socks with min A R side, pt educated on use of dressing stick to doff and sock aide to don. Pt educated on continuation of attempting sock don/ doffing without AE, but equipment use for increased IND.) Toileting Hygiene (QC): 4 (CGA in stance.) Toilet Transfer (QC): 4 (CGA, use of walker to [facility] Assessment/Plan Assessment and Plan Assess & Plan/Chief Complaint Assessment: s/p left TKA Severe iron deficiency anemia s/p severe constipation DM labile HTN AF PHILLIP on CPAP CRI Plan: IV iron IRF Improved Pain control Nebs CPAP Home SSI scheduled insulin (1) Status post left knee replacement (2) Hematuria (3) Delgado catheter in place (4) Postoperative nausea (5) PHILLIP on CPAP (6) Valvular heart disease (7) Hypertension Status: Chronic (8) Hyperglycemia (9) Diabetes mellitus Status: Chronic (10) Urinary retention (11) Atrial fibrillation Status: Chronic (12) Osteoarthritis of left knee (13) Anemia due to acute blood loss Status: Acute (14) Anticoagulant prescribed Status: Chronic (15) Atrial fibrillation Status: Acute HEATHER HOOKS DO Jul 09, 2019 08:30
[2019-07-09] MEDS: cloNIDine 0.2 MG (CATAPRES) TAB PO SCH ×2 (08:39→21:16)
[2019-07-09] MEDS: doxAzosin 2 MG (CARDURA) TAB PO SCH ×2 (08:39→21:16)
[2019-07-09] MEDS: fluCOnazole (DIFLUCAN) 100 MG TAB PO SCH (08:40)
[2019-07-09] MEDS: SENNA W/DOCUSATE (SENOKOT S) TABLET PO SCH ×2 (08:40→21:23)
[2019-07-09] MEDS: ENALAPRIL 10 MG (VASOTEC) TAB PO SCH (08:40)
[2019-07-09] MEDS: LORATADINE (CLARITIN) 10 MG TAB PO SCH (08:41)
[2019-07-09] MEDS: FLECAINIDE 100 MG (TAMBOCOR) TAB PO SCH ×2 (08:41→21:16)
[2019-07-09] MEDS: oxyCODONE/APAP 5/325MG (PERCOCET 5) TABLET PO PRN ×3 (08:41→21:19)
[2019-07-09] MEDS: DOCUSATE SODIUM 100 MG (COLACE) CAP PO SCH ×2 (08:41→21:16)
[2019-07-09] MEDS: PANTOPRAZOLE 20 MG TABLET (PROTONIX) PO SCH (08:41)
[2019-07-09] MEDS: polyethylene glycoL POWDER 17 GM (MIRALAX) PACK PO SCH ×2 (08:42→21:23)
--- NOTE | 2019-07-09 09:01 | Physical Therapy Daily Note ---
PT Daily Note-Current Subjective Pt. agrees to Rx and states she is doing so much better, states she is now anxious to go home and feels she will make great progress there. Rates left knee pain at 7/10 Pain Numeric Pain Scale: 7 Location: Left Location Body Site: Knee Pain Description: Ache Mental Status Patient Orientation: Normal For Age Attachments: Other-See Comments (polar pack...off for Rx) Transfers SCALE: Activities may be completed with or without assistive devices. 0-Pkcneljauo-wltfoay completes the activity by him/herself with no assistance from a helper. 5-Set-up or Clean-up Assistance-helper sets up or cleans up; patient completes activity. [place] assists only prior to or following the activity. 4-Supervision or Touching Assistance-helper provides verbal cues and/or touching/steadying and/or contact guard assistance as patient completes activity. Assistance may be provided throughout the activity or intermittently. 3-Partial/Moderate Assistance-helper does LESS THAN HALF the effort. [place] lif ts, holds or supports trunk or limbs, but provides less than half the effort. 2-Substantial/Maximal Assistance-helper does MORE THAN HALF the effort. [place] lifts or holds trunk or limbs and provides more than half the effort. 0-Hldzkqrua-jheiku does ALL the effort. Patient does none of the effort to complete the activity. Or, the assistance of 2 or more helpers is required for the patient to complete the activity. If activity was not attempted, code reason: 7-Patient Refused. 9-Not Applicable-not attempted and the patient did not perform the activity before the current illness, exacerbation or injury. 10-Not Attempted due to Environmental Limitations-(lack of equipment, weather restraints, etc.). 88-Not Attempted due to Medical Conditions or Safety Concerns. Weight Bearing Right Lower Extremity: Right Full Weight Bearing Left Lower Extremity: Left Weight Bearing/Tolerated Gait Training Does the Patient Walk?: Yes Walk 10 feet (QC): 5 Walk 50 ft with 2 Turns(QC): 5 Walk 150 ft (QC): 5 Gait Persons Needed: 1 Gait Assistive Device: FWW good knee flexion and toe off etc, good pattern ,safe habits noted. still moderate wt bearing on FWW Stair Training Stair Training: Handrails/: 2 handrails #of Steps: 4 4 Steps (QC): 5 Stairs: Pattern: Step to review of sequence Exercises Supine Ex: Ankle pumps, Quad Set, Rolling, Heel Slides, Short Arc Quads, Straight leg raise Supine Reps: 15 Seated Therapy Exercises: Ankle pumps, Sit to stand, Long arc quads, Hip flexion Seated Reps: 15 NuStep Minutes: 10 NuStep Workload: 3 Treatments nustep for emphasis on ext and flex with pt. using device to increase and stretch Assessment Current Status: Good Progress PT Short Term Goals Short Term Goals Time Frame: Jul 12, 2019 Sit to lyin Lying to sitting on side of be: 4 Sit to stand: 4 Walk 150 feet: 4 PT Intermediate Goals Vending Machine Operator Goals PT Vending Machine Operator Goals Time Frame: Jul 19, 2019 Roll Left & Right (QC): 6 Sit to Lying (QC): 6 Lying-Sitting on Side/Bed(QC): 6 Sit to Stand (QC): 6 Chair/Ubn-yq-Onwbg Xfer(QC): 6 Toilet Transfer (QC): 6 Car Transfer (QC): 5 Does the Patient Walk: Yes Walk 10 feet (QC): 6 Walk 50ft with 2 Turns (QC): 6 Walk 150 ft (QC): 6 Walking 10ft on Uneven Surface: 5 1 Step (curb) (QC): 5 4 Steps (QC): 5 12 Steps (QC): 9 Picking up an Object (QC): 9 Does the Pt use WC or Scooter?: No PT Plan Treatment/Plan Treatment Plan: Continue Plan of Care Treatment Plan: Bed Mobility, Education, Functional Activity Devika, Functional Strength, Group Therapy, Gait, Safety, Therapeutic Exercise, Transfers Treatment Duration: Jul 19, 2019 Frequency: At least 5 of 7 days/Wk (IRF) Estimated Hrs Per Day: 1.5 hours per day Patient and/or Family Agrees t: Yes Safety Risks/Education Patient Education: Gait Training, Transfer Techniques, Steps, Correct Positioning, Disease Process, Safety Issues Teaching Recipient: Patient Teaching Methods: Demonstration, Discussion Response to Teaching: Verbalize Understanding, Return Demonstration, Reinforcement Needed Time/GCodes Time In: 800 Time Out: 900 Total Billed Treatment Time: 60 Total Billed Treatment 1,EX30m,FA10m,GT20m ZACHARY PHIPPS EARTH OBSERVATIONS CHIEF SCIENTIST Jul 09, 2019 09:01
--- NOTE | 2019-07-09 10:04 | Occupational Ther Daily Note ---
OT Current Status-Daily Note Subjective Pt seen in recliner chair. Pt agreeable to OT tx session, denies shower as she did so yesterday. Pt states pain 5/10 on this date. Pt states she wishes she could go home sooner than Tue/ . Pt explained process of therapy/ DO/ nursing and meeting on Tuesday. Pt educated that OT will talk with PT to discu ss what more we need to work towards for safe transition home- Pt educated on continued items that pt can work towards within OT session. Mental Status/Objective Patient Orientation: Normal For Age Attachments: Polar Pack ADL-Treatment Therapy Code Descriptions/Definitions Functional [place] Measure: 0=Not Assessed/NA 4=Minimal Assistance 1=Total Assistance 5=Supervision or Setup 2=Maximal Assistance 6=Modified [place] 3=Moderate Assistance 7=Complete IndependenceSCALE: Activities may be completed with or without assistive devices. 0-Odpcqbvkwx-ydqfzwp completes the activity by him/herself with no assistance from a helper. 5-Set-up or Clean-up Assistance-helper sets up or cleans up; patient completes activity. [place] assists only prior to or following the activity. 4-Supervision or Touching Assistance-helper provides verbal cues and/or touching/steadying and/or contact guard assistance as patient completes activity. Assistance may be provided throughout the activity or intermittently. 3-Partial/Moderate Assistance-helper does LESS THAN HALF the effort. [place] lifts, holds or supports trunk or limbs, but provides less than half the effort. 2-Substantial/Maximal Assistance-helper does MORE THAN HALF the effort. [place] lifts or holds trunk or limbs and provides more than half the effort. 1-Faijmmggc-huwksa does ALL the effort. Patient does none of the effort to complete the activity. Or, the assistance of 2 or more helpers is required for the patient to complete the activity. If activity was not attempted, code reason: 7-Patient Refused. 9-Not Applicable-not attempted and the patient did not perform the activity before the current illness, exacerbation or injury. 10-Not Attempted due to Environmental Limitations-(lack of equipment, weather restraints, etc.). 88-Not Attempted due to Medical Conditions or Safety Concerns. Eating (QC): 6 Shower/Bathe Self (QC): 7 Upper Body Dressing (QC): 6 Lower Body Dressing (QC): 4 (SUP in stance.) On/Off Footwear: 5 (s/u as pt requires sock aide and cues for use.) Toilet Transfer (QC): 7 Other Treatment Pt states agreement for session, states shower yesterday "went fine," that nursing assisted for most of task. pt agrees to dress, completes with sock aide as only AE (has at home). Pt educated on ARU process during discussion of home/ d/c plans. Pt states will complete cooking/ cleaning at home for while. Pt completes kitchen mobility task with min cues for walker positioning, comple yasmine all tasks with SBA while reaching below cabinet and completing oven transfers. Pt ambulates to therapy gym, completes 5-10 reps of following activities: abdominal twists with 5# weighted bar, toe touches in seated (able to reach dorsum of foot), and knee raises with cues for breaths. Pt's 02 assessed in seated/ rest (97%) and after activity (97% maintains). Pt's edema pitting from distal huggins to ankle, nonpitting dorsum of foot (LLE). Pt returns to recliner, call light in reach, all needs met, pt's BLE elevated with polar pack donned to L knee. Pt denies bathroom. Education OT Patient Education: Correct positioning, Exercise program, Home exercise program, Modified ADL techniques, Safety issues, Use of adapted equipment Teaching Recipient: Patient Teaching Methods: Demonstration, Discussion Response to Teaching: Verbalize Understanding, Return Demonstration OT Short Term Goals Short Term Goals Time Frame: Jul 20, 2019 Shower/bathe self: 3 Upper body dressin Lower body dressin OT Community Recreation Coordinator Goals [facility] Goals Time Frame: Jul 27, 2019 Oral Hygiene (QC): 6 Toileting Hygiene (QC): 6 Shower/Bathe Self (QC): 6 Upper Body Dressing (QC): 6 Lower Body Dressing (QC): 6 On/Off Footwear (QC): 6 Additional Goals: 1-Demonstrate ADL Tasks, 2-Verbalize Understanding, 3- ImproveStrength/Devika 1=Demonstrate adherence to instructed precautions during ADL tasks. 2=Patient will verbalize/demonstrate understanding of assistive devices/modifications for ADL. 3=Patient will improve strength/tolerance for activity to enable patient to perform ADL's. OT Education/Plan Problem List/Assessment Assessment: Decreased Activ Tolerance, Edema, Impaired Funct Balance, Impaired I ADL's, Impaired Self-Care Skills Discharge Recommendations Plan/Recommendations: Continue POC Treatment Plan/Plan of Care Treatment,Training & Education: Yes Patient would benefit from OT for education, treatment and training to promote independence in ADL's, mobility, safety and/or upper extremity function for ADL's. Plan of Care: ADL Retraining, Caregiver Training, Functional Mobility, Group Exercise/Act as Ind, UE Funct Exercise/Act Treatment Duration: Jul 27, 2019 Frequency: At least 5 of 7 days/Wk (IRF) Estimated Hrs Per Day: 1.5 hours per day Agreement: Yes Rehab Potential: Good Time/GCodes Start Time: 09:00 Stop Time: 10:00 Total Time Billed (hr/min): 60 Billed Treatment Time 1, ADL 2, EX 2 = 60 MAXI HENDRICKS OTR Jul 09, 2019 10:04
--- NOTE | 2019-07-09 12:28 | Speech Therapy Daily Note ---
Speech Daily Progress Note Subjective Date Seen by Provider: Jul 09, 2019 Time Seen by Provider: 10:30 Patient was alert, upbeat, and cooperative for all therapy tasks. Patient reported that she is feeling better and her mind is more clear today. Patient sat upright in her chair for the duration of treatment. Objective Patient completed memory tasks pertaining to her family history and work history at 90% with minimal cues. Assessment Assessment Current Status: Good Progress Treatment Plan Continue Plan of Care Speech Short Term Goals Short Term Goals Short Term Goals 1. Patient will complete memory tasks at 90% accuracy with minimal cues. 2. Patient will complete problem-solving tasks at 90% accuracy with minimal cues. 3. Patient will complete safety awareness tasks at 90% accuracy with minimal cues. Speech Pipeline Technician Goals Pipeline Technician Goals Patient will improve cognitive-communication necessary for safety and daily living tasks with minimal assist. Speech-Plan Patient/Family Goals Patient/Family Goals: Patient reported that she wishes to return home to prior level of indepenence and mobility. Treatment Plan Speech Therapy Treatment Plan: Continue Plan of Care Treatment Duration: Jul 13, 2019 Frequency: 4 times per week (4-5 x's per week) Estimated Hrs Per Day: .5 hour per day Rehab Potential: Good Barriers to Learning: Mild cognitive deficits Pt/Family Agrees to Plan: Yes Safety Risks/Education Teaching Recipient: Patient Teaching Methods: Demonstration, Discussion Response to Teaching: Verbalize Understanding Education Topics Provided: Utilization of memory strategies to recall important information Time Speech Therapy Time In: 10:30 Speech Therapy Time Out: 11:00 Total Billed Time: 30 Billed Treatment Time 1MANASA [address] ST Jul 09, 2019 12:28
--- NOTE | 2019-07-09 14:22 | Therapy Group Daily Note ---
Therapy Daily Group Note Patient Education Topic Other List Below (TRF safety and techniques) Exercises LE Seated Exercise, UE Exercise Session Ratio (pt:therapist): 4:1 Goal of Session: Safety with Transfers Goal Met for this Session: Yes Pt Benefit of Group: Increased Functional Safety, Socialization Other/Notes Pt. participated in group PT OT session this date. Pt. ambulated with assist to and from group. Pts introduced themselves and socialized briefly before exercise and TRF technique education was demonstrated and shared. Bed mobility for rolling, scooting up in bed , side to sit , sit to stand , vehicle TRFs and tub TRFs were all demonstrated and discussed with pts sharing and contributing appropriately. Pts. also participated in seated U&L extremity therex. Pt. to room after group with assist to bed, bunch at hand. Start Time: 13:00 Stop Time: 14:10 Total Billed Treatment Time: 70 Total Billed Treatment 1,GRP ZACHARY PHIPPS CLIENT CARE MANAGER Jul 09, 2019 14:22
[2019-07-09 16:00] VITALS: BP 164/68
[2019-07-09 18:00] VITALS: BP 160/65
--- NOTE | 2019-07-09 19:20 | NUR ---
bedside report received from SAMARA [place], assume care of pt
--- NOTE | 2019-07-09 21:19 | NUR ---
pt took Colace but refused miralax & Senokot, fsbs 175, c/o pain to lt knee pain level 5/10 on numeric scale, Percocet 5/325 1 tab given, dressing to lt knee changed.
--- NOTE | 2019-07-09 22:15 | NUR ---
resting quietly in bed, pain level 0/10 on CNPI scale
[2019-07-10] MEDS: NYSTATIN ORAL SUSP 5 ML UDC PO SCH ×3 (00:08→11:54)
[2019-07-10 05:43] VITALS: BP 165/70
[2019-07-10] MEDS: LEVOTHYROXINE 100 MCG (LEVOTHROID) TAB PO SCH (06:26)
[2019-07-10] MEDS: MULTIVIT W/MINERALS TAB (THERAGRAN M) PO SCH (06:26)
[2019-07-10] MEDS: inSUlin ASPART (NovoLOG) 1 UNIT/0.01 ML (CHARGE PER UNIT) SC SCH ×2 (06:26→11:51)
[2019-07-10] MEDS: APIXABAN 5 MG (ELIQUIS) TABLET PO SCH (06:26)
[2019-07-10] MEDS: CATHETER FLUSH 10 ML SYR IV SCH ×2 (07:03→13:58)
[2019-07-10] MEDS: oxyCODONE/APAP 5/325MG (PERCOCET 5) TABLET PO PRN (07:04)
[2019-07-10] MEDS: RT-ALBUTEROL/IPRATROPIUM 3 ML (DUONEB) VIAL INH SCH (07:48)
[2019-07-10] MEDS: cloNIDine 0.2 MG (CATAPRES) TAB PO SCH (08:14)
[2019-07-10] MEDS: FLECAINIDE 100 MG (TAMBOCOR) TAB PO SCH (08:14)
[2019-07-10] MEDS: doxAzosin 2 MG (CARDURA) TAB PO SCH (08:15)
[2019-07-10] MEDS: ENALAPRIL 10 MG (VASOTEC) TAB PO SCH (08:15)
[2019-07-10] MEDS: LORATADINE (CLARITIN) 10 MG TAB PO SCH (08:15)
[2019-07-10] MEDS: fluCOnazole (DIFLUCAN) 100 MG TAB PO SCH (08:16)
[2019-07-10] MEDS: PANTOPRAZOLE 20 MG TABLET (PROTONIX) PO SCH (08:16)
[2019-07-10] MEDS: DOCUSATE SODIUM 100 MG (COLACE) CAP PO SCH (08:17)
[2019-07-10] MEDS: polyethylene glycoL POWDER 17 GM (MIRALAX) PACK PO SCH (08:17)
[2019-07-10] MEDS: SENNA W/DOCUSATE (SENOKOT S) TABLET PO SCH (08:17)
[2019-07-10] MEDS ORDERED: OXYC1TAB87 PO (08:48)
[2019-07-10] MEDS ORDERED: NYST1000 PO (08:48)
[2019-07-10] MEDS ORDERED: SENN-20 PO (08:48)
[2019-07-10] MEDS ORDERED: DOXA2TAB2 PO (08:48)
--- NOTE | 2019-07-10 08:50 | D/C HH Face to Face Order ---
D/C Face to Face Orders Reconcile Patient Problems Problems Reviewed?: Yes Instructions for Patient Via [facility], Patient Instructions/FollowUp: Dr Felipe in 1 week Physician to follow Patient: Dr Felipe Discharge Diet for Home: ADA Diet Patient Problems: s/p left knee replacement DM HTN AF PHILLIP Goals for Patient: [place] Patient Data-Allergies,Ht & Wt Patient Allergies: Coded Allergies: insulin detemir (Verified Allergy, Intermediate, RASH, takes Lantus & Humalog at home, 08/23/18) red bumps at insertion site of injection Has received regular insulin & Novolog during previous hospitalization morphine (Verified Adverse Reaction, Intermediate, Vomiting, 07/05/19) Height (Feet): 5 Height (Inches): 5.00 Weight (Pounds): 226 Weight (Ounces): 4.0 Home Health Need/Face to Face Date of Face to Face: Jul 10, 2019 Clinical Findings: Generalized weakness and fatigue, Instability, Muscle weakness, Pain with ambulation, Unsteady gait I have seen Pt [id number]: Yes Discharged To: Home Diagnosis/Conditions: s/p left knee replacement DM HTN AF PHILLIP Patient is Homebound due to: [place] fall risk due to instabilty, Muscle weakness, Pain w/ambulation Homebound Status Due to the above stated illness, injury or surgical procedure (medical condition or diagnosis) and associated clinical findings, the patient is homebound because of his/her inability to leave home except with aid of a supportive device and/or person AND leaving the home requires a considerable and taxing effort or is medically contraindicated. Pt req the following assistanc: Walker Home Health Nursing Orders Home Health Services Order: Nursing Services, Water Control Station Engineer-Evaluate & Treat, Physical Therapy-Evaluate & Treat Home Health Infusion Therapy Line Start Date: Jul 08, 2019 Certify Stmt I certify that this patient is under my care and that I, a nurse practitioner or a physician; a assistant import manager working with me, had a face to face encounter that - meets the physician face to face encounter requirements with this patient as dated. HEATHER FELIPE DO Jul 10, 2019 08:50
--- NOTE | 2019-07-10 08:51 | Discharge Summary ---
Diagnosis/Chief Complaint Date of Admission Jul 05, 2019 at 12:00 Date of Discharge Discharge Date: Jul 10, 2019 Discharge Diagnosis Assessment: s/p left TKA Severe iron deficiency anemia s/p severe constipation DM labile HTN AF PHILLIP on CPAP CRI Plan: IV iron IRF Improved Pain control Nebs CPAP Home SSI scheduled insulin (1) Status post left knee replacement (2) Hematuria (3) Delgado catheter in place (4) Postoperative nausea (5) PHILLIP on CPAP (6) Valvular heart disease (7) Hypertension Status: Chronic (8) Hyperglycemia (9) Diabetes mellitus Status: Chronic (10) Urinary retention (11) Atrial fibrillation Status: Chronic (12) Osteoarthritis of left knee (13) Anemia due to acute blood loss Status: Acute (14) Anticoagulant prescribed Status: Chronic (15) Atrial fibrillation Status: Acute Discharge Summary Discharge Physical Examination Allergies: Coded Allergies: insulin detemir (Verified Allergy, Intermediate, RASH, takes Lantus & Humalog at home, 08/23/18) red bumps at insertion site of injection Has received regular insulin & Novolog during previous hospitalization morphine (Verified Adverse Reaction, Intermediate, Vomiting, 07/05/19) Vitals & I&Os Vital Signs Date Time Temp Pulse Resp B/P (MAP) Pulse Ox O2 Delivery O2 Flow Rate FiO2 07/10/19 14:28 36.6 79 18 165/70 97 Room Air General Appearance: Alert, Oriented X3, Cooperative Respiratory: Clear to Auscultation Cardiovascular: Regular Rate Neuro: Normal Speech, Strength at 5/5 X4 Ext Psych/Mental Status: Mental Status NL Hospital Course Was the Problem List Reviewed?: Yes Hospital Course: Pt had a short hospital course. Pt was admitted following a left total knee replacement, labile sugars and hgb declined and wheezing precluded a DC to home health so she was sent to the inpatient rehab. Pt was given IV iron and overall improved. Wheezing resolved with Albuterol and nebulizer treatments and home CPAP. Overall pt felt well enough to be DC on home health and she already had a walker and she will see me in close follow up. Labs (last 24 hrs) Laboratory Tests 07/05/19 16:00: Glucometer 185H 07/06/19 05:05: White Blood Count 9.3, Red Blood Count 3.14L, Hemoglobin 8.5L, Hematocrit 27L, Mean Corpuscular Volume 86, Mean Corpuscular Hemoglobin 27, Mean Corpuscular Hemoglobin Concent 32, Red Cell Distribution Width 15.7H, Platelet Count 217, Mean Platelet Volume 10.6H, Neutrophils (%) (Auto) 83H, Lymphocytes (%) (Auto) 7L, Monocytes (%) (Auto) 10, Eosinophils (%) (Auto) 0, Basophils (%) (Auto) 0, Neutrophils # (Auto) 7.7, Lymphocytes # (Auto) 0.6L, Monocytes # (Auto) 0.9, Eosinophils # (Auto) 0.0, Basophils # (Auto) 0.0, Sodium Level 132L, Potassium Level 5.0, Chloride Level 101, Carbon Dioxide Level 21, Anion Gap 10, Blood Urea Nitrogen 29H, Creatinine 0.82, Estimat Glomerular Filtration Rate > 60, BUN/C reatinine Ratio 35, Glucose Level 153H, Calcium Level 9.1, Corrected Calcium 9.5, Total Bilirubin 0.6, Aspartate Amino Transf (AST/SGOT) 35H, Alanine Aminotransferase (ALT/SGPT) 22, Alkaline Phosphatase 113, Total Protein 6.9, Albumin 3.5 07/06/19 11:29: Glucometer 399H 07/06/19 16:02: Glucometer 174H 07/06/19 20:39: Glucometer 285H 07/07/19 05:44: Glucometer 145H 07/07/19 11:09: Glucometer 262H 07/07/19 16:16: Glucometer 70 07/07/19 20:41: Glucometer 305H 07/08/19 01:49: Glucometer 83 07/08/19 06:42: Glucometer 163H 07/08/19 11:02: Glucometer 339H 07/08/19 15:55: Glucometer 261H 07/08/19 20:38: Glucometer 146H 07/09/19 05:35: White Blood Count 8.6, Red Blood Count 3.31L, Hemoglobin 9.0L, Hematocrit 29L, Mean Corpuscular Volume 86, Mean Corpuscular Hemoglobin 27, Mean Corpuscular Hemoglobin Concent 32, Red Cell Distribution Width 16.0H, Platelet Count 325, Mean Platelet Volume 10.0, Neutrophils (%) (Auto) 69, Lymphocytes (%) (Auto) 15, Monocytes (%) (Auto) 11, Eosinophils (%) (Auto) 5, Basophils (%) (Auto) 0, Neutrophils # (Auto) 6.0, Lymphocytes # (Auto) 1.3, Monocytes # (Auto) 1.0, Eosinophils # (Auto) 0.4H, Basophils # (Auto) 0.0, Sodium Level 140, Potassium Level 4.4, Chloride Level 105, Carbon Dioxide Level 24, Anion Gap 11, Blood Urea Nitrogen 17, Creatinine 0.73, Estimat Glomerular Filtration Rate > 60, BUN/Cr eatinine Ratio 23, Glucose Level 126H, Calcium Level 9.1, Corrected Calcium 9.6, Magnesium Level 2.1, Total Bilirubin 0.5, Aspartate Amino Transf (AST/SGOT) 19, Alanine Aminotransferase (ALT/SGPT) 24, Alkaline Phosphatase 121, Total Protein 6.7, Albumin 3.4 07/09/19 11:00: Glucometer 176H 07/09/19 15:32: Glucometer 242H 07/09/19 21:14: Glucometer 175H 07/09/19 22:36: Glucometer 183H 07/10/19 05:58: Glucometer 230H 07/10/19 10:45: Glucometer 241H Pending Labs Laboratory Tests 07/05/19 16:00: Glucometer 185 07/06/19 05:05: White Blood Count 9.3, Red Blood Count 3.14, Hemoglobin 8.5, Hematocrit 27, Mean Corpuscular Volume 86, Mean Corpuscular Hemoglobin 27, Mean Corpuscular Hemoglobin Concent 32, Red Cell Distribution Width 15.7, Platelet Count 217, Mean Platelet Volume 10.6, Neutrophils (%) (Auto) 83, Lymphocytes (%) (Auto) 7, Monocytes (%) (Auto) 10, Eosinophils (%) (Auto) 0, Basophils (%) (Auto) 0, Neutrophils # (Auto) 7.7, Lymphocytes # (Auto) 0.6, Monocytes # (Auto) 0.9, Eosinophils # (Auto) 0.0, Basophils # (Auto) 0.0, Sodium Level 132, Potassium Level 5.0, Chloride Level 101, Carbon Dioxide Level 21, Anion Gap 10, Blood Urea Nitrogen 29, Creatinine 0.82, Estimat Glomerular Filtration Rate > 60, BUN/Creatinine Ratio 35, Glucose Level 153, Calcium Level 9.1, Corrected Calcium 9.5, Total Bilirubin 0.6, Aspartate Amino Transf (AST/SGOT) 35, Alanine Aminotransferase (ALT/SGPT) 22, Alkaline Phosphatase 113, Total Protein 6.9, Albumin 3.5 07/06/19 11:29: Glucometer 399 07/06/19 16:02: Glucometer 174 07/06/19 20:39: Glucometer 285 07/07/19 05:44: Glucometer 145 07/07/19 11:09: Glucometer 262 07/07/19 16:16: Glucometer 70 07/07/19 20:41: Glucometer 305 07/08/19 01:49: Glucometer 83 07/08/19 06:42: Glucometer 163 07/08/19 11:02: Glucometer 339 07/08/19 15:55: Glucometer 261 07/08/19 20:38: Glucometer 146 07/09/19 05:35: White Blood Count 8.6, Red Blood Count 3.31, Hemoglobin 9.0, Hematocrit 29, Mean Corpuscular Volume 86, Mean Corpuscular Hemoglobin 27, Mean Corpuscular Hemoglobin Concent 32, Red Cell Distribution Width 16.0, Platelet Count 325, Mean Platelet Volume 10.0, Neutrophils (%) (Auto) 69, Lymphocytes (%) (Auto) 15, Monocytes (%) (Auto) 11, Eosinophils (%) (Auto) 5, Basophils (%) (Auto) 0, Neutrophils # (Auto) 6.0, Lymphocytes # (Auto) 1.3, Monocytes # (Auto) 1.0, Eosinophils # (Auto) 0.4, Basophils # (Auto) 0.0, Sodium Level 140, Potassium Level 4.4, Chloride Level 105, Carbon Dioxide Level 24, Anion Gap 11, Blood Urea Nitrogen 17, Creatinine 0.73, Estimat Glomerular Filtration Rate > 60, BUN/Creatinine Ratio 23, Glucose Level 126, Calcium Level 9.1, Corrected Calcium 9.6, Magnesium Level 2.1, Total Bilirubin 0.5, Aspartate Amino Transf (AST/SGOT) 19, Alanine Aminotransferase (ALT/SGPT) 24, Alkaline Phosphatase 121, Total Protein 6.7, Albumin 3.4 07/09/19 11:00: Glucometer 176 07/09/19 15:32: Glucometer 242 07/09/19 21:14: Glucometer 175 07/09/19 22:36: Glucometer 183 07/10/19 05:58: Glucometer 230 07/10/19 10:45: Glucometer 241 Discharge Home Medications: Active Scripts Active Senna-Time S Tablet (Sennosides/Docusate Sodium) 1 Each Tablet 2 Ea PO BID Percocet 5-325 mg Tablet (Oxycodone HCl/Acetaminophen) 1 Each Tablet 1 Tab PO Q2HR PRN Doxazosin Mesylate 2 Mg Tablet 4 Mg PO BID Nystatin 100,000 Unit/1 Ml Oral.susp 5 Ml PO Q6HR Reported Isis Fuostar (Insulin Glargine,Hum.rec.anlog) 300 Unit/1 Ml Insuln.pen 26 Unit SQ HS Omeprazole 20 Mg Capsule.dr 20 Mg PO DAILY Cetirizine HCl 10 Mg Tablet 10 Mg PO DAILY Montelukast Sodium 10 Mg Tablet 10 Mg PO HS Eliquis (Apixaban) 5 Mg Tablet 5 Mg PO BID Flecainide Acetate 150 Mg Tablet 150 Mg PO BID Flaxseed Oil 1,000 Mg Capsule 1,000 Mg PO DAILY Enalapril Maleate 10 Mg Tablet 10 Mg PO DAILY Cartia Xt (Diltiazem HCl) 300 Mg Cap.er.24h 300 Mg PO DAILY Pravastatin Sodium 40 Mg Tablet 40 Mg PO DAILY Multivitamins (Multivitamin) 1 Each Tablet 1 Tab PO DAILY Lutein 6 Mg Capsule 6 Mg PO DAILY Clonidine HCl 0.2 Mg Tablet 0.2 Mg PO BID Humalog (Insulin Lispro) 100 Unit/1 Ml Cartridge 0 SQ AC Levothyroxine Sodium 100 Mcg Tablet 100 Mcg PO DAILY Instructions to patient/family Please see electronic discharge instructions given to patient. Diagnosis/Problems Diagnosis/Problems (1) Status post left knee replacement (2) Hematuria (3) Delgado catheter in place (4) Postoperative nausea (5) PHILLIP on CPAP (6) Valvular heart disease (7) Hypertension Status: Chronic (8) Hyperglycemia (9) Diabetes mellitus Status: Chronic (10) Urinary retention (11) Atrial fibrillation Status: Chronic (12) Osteoarthritis of left knee (13) Anemia due to acute blood loss Status: Acute (14) Anticoagulant prescribed Status: Chronic (15) Atrial fibrillation Status: Acute Clinical Quality Measures DVT/VTE Risk/Contraindication: Risk Factor Score Per Nursin RFS Level Per Nursing on Admit: 4+=Very High HEATHER HOOKS DO Jul 10, 2019 08:51
--- NOTE | 2019-07-10 09:00 | NUR ---
THRUSH ON TONGUE MUCH IMPROVED.
[2019-07-10] MEDS: IRON SUCROSE 200 MG/10 ML (VENOFER) VIAL IV SCH (09:51)
--- NOTE | 2019-07-10 09:52 | NUR ---
IV BAD AND PATIENT GOING HOME TODAY. OK TO DC IV DERIKOFER PER DR. HOOKS.
--- NOTE | 2019-07-10 09:57 | Physical Therapy Daily Note ---
PT Daily Note-Current Subjective Pt sitting in recliner upon arrival. Pt agrees to PT for QC for possible D/C later today. Pt reports wanting to D/C MAU. Pain Numeric Pain Scale: 3 Location: Left Location Body Site: Knee Pain Description: Ache, Tightness Mental Status Patient Orientation: Person, Place, Situation Attachments: Polar Pack, Other-See Comments (CPM) Transfers SCALE: Activities may be completed with or without assistive devices. 4-Vaechbnhrl-cuvukyk completes the activity by him/herself with no assistance from a helper. 5-Set-up or Clean-up Assistance-helper sets up or cleans up; patient completes activity. [place]wood assists only prior to or following the activity. 4-Supervision or Touching Assistance-helper provides verbal cues and/or touching/steadying and/or contact guard assistance as patient completes activity. Assistance may be provided throughout the activity or intermittently. 3-Partial/Moderate Assistance-helper does LESS THAN HALF the effort. Underwood lifts, holds or supports trunk or limbs, but provides less than half the effort. 2-Substantial/Maximal Assistance-helper does MORE THAN HALF the effort. Underwood lifts or holds trunk or limbs and provides more than half the effort. 3-Szcvmosos-hbkuze does ALL the effort. Patient does none of the effort to complete the activity. Or, the assistance of 2 or more helpers is required for the patient to complete the activity. If activity was not attempted, code reason: 7-Patient Refused. 9-Not Applicable-not attempted and the patient did not perform the activity before the current illness, exacerbation or injury. 10-Not Attempted due to Environmental Limitations-(lack of equipment, weather restraints, etc.). 88-Not Attempted due to Medical Conditions or Safety Concerns. Roll Left & Right (QC): 5 Sit to Lying (QC): 5 Lying to Sitting/Side of Bed(Q: 5 Sit to Stand (QC): 5 Chair/Iqr-ry-Lxwrt Xfer(QC): 5 Toilet Transfer (QC): 5 Car Transfer (QC): 5 Pt pulls on bed rail and side of bed to complete bed mobility. Pt also lifts L LE by pant leg to get into bed as well as car. Weight Bearing Right Lower Extremity: Right Full Weight Bearing Left Lower Extremity: Left Weight Bearing/Tolerated Gait Training Does the Patient Walk?: Yes Distance: 150' x2 Walk 10 feet (QC): 5 Walk 50 ft with 2 Turns(QC): 5 Walk 150 ft (QC): 5 Walking 10ft/uneven surface-QC: 5 Gait Persons Needed: 1 Gait Assistive Device: FWW Pt walks with a slight stiff, antalgic gait pattern. Wheelchair Training Does the Pt Use a Wheelchair?: No Stair Training See yesterday's note for record of stairs. Balance Picking up an Object (QC): 9 Special Test Comments Pt reports aquatic centre manager at home as well as Sp to assist. Exercises Seated Therapy Exercises: Ankle pumps, Long arc quads, Hip flexion, Kicking activity Seated Reps: 15 Treatments Pt completes QC scoring items listed above. Pt also completes Seated Ex and is given written HEP for Seated & Supine Ex. CASHIER CREDIT also discusses AE & AD pt might need for anticipated D/C. Pt resting in recliner at end of Rx with all needs met, call light in hand. Assessment Current Status: Good Progress Pt is capable of completing mobility and transfers at A but needs extra effort and time to complete. PT Short Term Goals Short Term Goals Time Frame: Jul 12, 2019 Sit to lyin Lying to sitting on side of be: 4 Sit to stand: 4 Walk 150 feet: 4 PT Fdc Goals Fdc Goals PT Senior Telecommunications Specialist Goals Time Frame: Jul 19, 2019 Roll Left & Right (QC): 6 Sit to Lying (QC): 6 Lying-Sitting on Side/Bed(QC): 6 Sit to Stand (QC): 6 Chair/Otm-ew-Fmhkh Xfer(QC): 6 Toilet Transfer (QC): 6 Car Transfer (QC): 5 Does the Patient Walk: Yes Walk 10 feet (QC): 6 Walk 50ft with 2 Turns (QC): 6 Walk 150 ft (QC): 6 Walking 10ft on Uneven Surface: 5 1 Step (curb) (QC): 5 4 Steps (QC): 5 12 Steps (QC): 9 Picking up an Object (QC): 9 Does the Pt use WC or Scooter?: No PT Plan Problem List Problem List: Activity Tolerance, Functional Strength Treatment/Plan Treatment Plan: Continue Plan of Care Treatment Plan: Bed Mobility, Education, Functional Activity Devika, Functional Strength, Group Therapy, Gait, Safety, Therapeutic Exercise, Transfers Treatment Duration: Jul 19, 2019 Frequency: At least 5 of 7 days/Wk (IRF) Estimated Hrs Per Day: 1.5 hours per day Patient and/or Family Agrees t: Yes Safety Risks/Education Patient Education: Gait Training, Transfer Techniques, Issued Written HEP, Correct Positioning, Safety Issues Teaching Recipient: Patient Teaching Methods: Discussion Response to Teaching: Verbalize Understanding Time/GCodes Time In: 815 Time Out: 900 Total Billed Treatment Time: 45 Total Billed Treatment 1, GT (15m) & FA x2 (30m) STEFANIA BRAXTON CASHIER CREDIT Jul 10, 2019 09:56
--- NOTE | 2019-07-10 10:27 | NUR ---
FRITZ HERE TO SEE PATIENT. INFORMED OF CONTINUED HTN. Addendum: 07/10/19 at 1436 by KRISTI MONTES RN PER [facility] TODAY. F/U WITH DR. LINN ON 07/24.
--- NOTE | 2019-07-10 10:41 | Occupational Ther Daily Note ---
OT Current Status-Daily Note Subjective Pt seen in recliner chair post-PT session, social work present. OT/ social work discuss home environment with emphasis on shower chair/ shower transfer safety. Pt and OT discuss during session as well. Pt agreeable to OT tx session, pt plans to d/c today. QC's gathered. Mental Status/Objective Patient Orientation: Normal For Age ADL-Treatment Therapy Code Descriptions/Definitions Functional [place] Measure: 0=Not Assessed/NA 4=Minimal Assistance 1=Total Assistance 5=Supervision or Setup 2=Maximal Assistance 6=Modified [place] 3=Moderate Assistance 7=Complete IndependenceSCALE: Activities may be completed with or without assistive devices. 2-Ynlgbvhyjg-zotgwdp completes the activity by him/herself with no assistance from a helper. 5-Set-up or Clean-up Assistance-helper sets up or cleans up; patient completes activity. Alba assists only prior to or following the activity. 4-Supervision or Touching Assistance-helper provides verbal cues and/or touching/steadying and/or contact guard assistance as patient completes activity. Assistance may be provided throughout the activity or intermittently. 3-Partial/Moderate Assistance-helper does LESS THAN HALF the effort. Alba lifts, holds or supports trunk or limbs, but provides less than half the effort. 2-Substantial/Maximal Assistance-helper does MORE THAN HALF the effort. Alba lifts or holds trunk or limbs and provides more than half the effort. 2-Ucwbqvpms-jbbldh does ALL the effort. Patient does none of the effort to complete the activity. Or, the assistance of 2 or more helpers is required for the patient to complete the activity. If activity was not attempted, code reason: 7-Patient Refused. 9-Not Applicable-not attempted and the patient did not perform the activity before the current illness, exacerbation or injury. 10-Not Attempted due to Environmental Limitations-(lack of equipment, weather restraints, etc.). 88-Not Attempted due to Medical Conditions or Safety Concerns. Eating (QC): 6 (IND) Oral Hygiene (QC): 6 (Mod I at sink, use of walker.) Bathing Location: L Arm, R Arm, L Upper Leg, R Upper Leg, L Lower Leg (including foot), R Lower Leg (including foot), Chest, Abdomen, Buttocks, Perineal Area Shower/Bathe Self (QC): 4 (intermittent assist for feetSBA during stance/ bottom hygienePt and OT discuss purchase of high shower chair with rails bilaterally as pt only has one grab bar within/ outside of shower. Pt educated on use of high SC (as pt tends to gather momentum through rocking back/ forth). Pt demonstrates ability to get on/ off high commode with rails bilaterally without rocking movement. Pt educated on completing dry-run of shower transfers multiple times before wet shower. pt agrees. Pt educated that if not able to stand without rocking, an additional grab bar would assist in safe transfer.) Upper Body Dressing (QC): 6 (IND) Lower Body Dressing (QC): 6 (IND) On/Off Footwear: 5 (s/u : BENJI hose donned prior to socks. Pt completes socks on bed with IND. Pt educated that she can complete BENJI hose with sock aide.) Toileting Hygiene (QC): 6 (Mod I) Toilet Transfer (QC): 4 (SBA for transfer, pt utilizes grab bars to R side. Pt states home toilet higher with rails bilaterally. Pt demonstrates ability to get on/ off high toilet with rails bilaterally with IND. Hospital toilet with SBA.) Other Treatment Pt seen with QC's in mind: pt and oncology social work discuss home environment and OT states no HHOT required. Pt agrees. Pt and OT address home environment, focus on shower. Pt states 3/10 pain. Pt agreeable to shower. All QC's/ ADLs gathered (above). Pt states no other obstacles at home. Pt left with polar pack on, feet elevated, UE HEP discussed, home safety, transfers and edema management discussed. All needs met, call light within reach, d/c on this date. Education OT Patient Education: Correct positioning, Exercise program, Home exercise program, Modified ADL techniques, Purpose of tx/functional activities, Safety issues, Use of adapted equipment Teaching Recipient: Patient Teaching Methods: Demonstration, Discussion Response to Teaching: Verbalize Understanding, Return Demonstration OT Short Term Goals Short Term Goals Time Frame: Jul 20, 2019 Shower/bathe self: 3 Upper body dressin Lower body dressin OT Patrol Commander Goals Patrol Commander Goals Time Frame: Jul 27, 2019 Eating (QC): 6 (met) Oral Hygiene (QC): 6 (met) Toileting Hygiene (QC): 6 Shower/Bathe Self (QC): 6 Upper Body Dressing (QC): 6 (met) Lower Body Dressing (QC): 6 (met) On/Off Footwear (QC): 6 Additional Goals: 1-Demonstrate ADL Tasks, 2-Verbalize Understanding, 3- ImproveStrength/Devika 1=Demonstrate adherence to instructed precautions during ADL tasks. 2=Patient will verbalize/demonstrate understanding of assistive devices/mod ifications for ADL. 3=Patient will improve strength/tolerance for activity to enable patient to perform ADL's. OT Education/Plan Problem List/Assessment Assessment: Decreased Activ Tolerance, Decreased UE Strength, Edema, Impaired I ADL's, Impaired Self-Care Skills Discharge Recommendations Plan/Recommendations: Continue POC Therapy Discharge Recommendati: Home & Family Equpiment Recommendations-D/C: Bath Chair Treatment Plan/Plan of Care Treatment,Training & Education: Yes Patient would benefit from OT for education, treatment and training to promote independence in ADL's, mobility, safety and/or upper extremity function for ADL's. Plan of Care: ADL Retraining, Caregiver Training, Functional Mobility, Group Exercise/Act as Ind, UE Funct Exercise/Act Treatment Duration: Jul 27, 2019 Frequency: At least 5 of 7 days/Wk (IRF) Estimated Hrs Per Day: 1.5 hours per day Agreement: Yes Rehab Potential: Good Time/GCodes Start Time: 09:30 Stop Time: 10:35 Total Time Billed (hr/min): 65 Billed Treatment Time 1, ADL 4 (65) MAXI HENDRICKS OTR Jul 10, 2019 10:40
--- NOTE | 2019-07-10 10:44 | Progress Note - Cardiology ---
Cardiology SOAP Progress Note Subjective: Sitting up in recliner at the bedside. Denies any c/o CP, dyspnea or palpitations. States she is going home today Objective: I&O/Vital Signs Weight (Pounds): 226 Weight (Ounces): 4.0 Weight (Calculated Kilograms): 102.785138 Constitutional: AAO x 3, well-developed, well-nourished Respiratory: No accessory muscle use; other (good bilat air entry) Cardiovascular: regular rate-rhythm, S1 and S2, systolic murmur (2/6 AARON at card base) Gastrointestional: No tender, No guarding, No rebound; audible bowel sounds Extremities: No clubbing, No cyanosis, No significant edema Neurologic/Psychiatric: oriented x 3, other (moves all limbs ) Skin: warm/dry; No rash on exposed areas, No ulcerations on exposed areas Results/Procedures: Labs A/P: Assessment: Hypertension S/P total left knee arthroplasty on 07-04-[address] Pagan Post-op anemia, managed by Dr Felipe Paroxysmal atrial flutter/fibrillation currently controlled on therapy with flecainide. This has been managed by Dr Eid in EP consult in [place], [place] Echo of Jun 27, 2018 LVEF 60-65%. LA mildly dilated. Mild MR. PASP 30 mmHg Chronic Eliquis anticoag No angiographically significant coronary artery disease. Normal global left ventricular systolic function, no significant mitral regurgitation, and normal left ventricular end-diastolic pressure on cardiac catheterization in October 2011. MPI of Jun 06, 2018 showed no evidence of any significant myocardial ischemia or infarction. LVEF 74% H/O Hypertension Maturity onset diabetes mellitus, being followed by her Electric Locomotive Firer/Fireman, Dr. Farias. Hypothyroidism being treated with thyroid replacement therapy. Potassium level at the top limits of normal to minimally elevated. Cessation of ISATU inhibitors does not seem to have changed this very much. Her computer engineering technologist has advised continuing ISATU-inhib therapy Hyperlipidemia being treated with statins and being followed by her Electric Locomotive Firer/Fireman, Dr. Farias Mild bilat internal carotid dz per u/s of July 2018 Elevated BMI of approx 38 PHILLIP diagnosed on sleep study of 07/17/16, being followed by Dr Bonds Plan: * BP improving following adjustments in antihypertensive regimen * Continue current regimen * Out pt f/u * Monitor labs ANDRIA LARRY Jul 10, 2019 10:44
--- NOTE | 2019-07-10 10:58 | Speech Therapy Daily Note ---
Speech Daily Progress Note Subjective Date Seen by Provider: Jul 10, 2019 Time Seen by Provider: 10:45 Patient was alert, upbeat, and cooperative for all therapy tasks. Patient reported that she is feeling like normal again and back to where she was before hospital admission. Objective Patient completed problem-solving tasks pertaining to home scenarios with 90% accuracy and minimal cues. Assessment Assessment Current Status: Excellent Progress Treatment Plan Discontinue ST, Goals Met Speech Short Term Goals Short Term Goals Short Term Goals 1. Patient will complete memory tasks at 90% accuracy with minimal cues. 2. Patient will complete problem-solving tasks at 90% accuracy with minimal cues. 3. Patient will complete safety awareness tasks at 90% accuracy with minimal cues. Speech Senior Living Goals Director Of Adult Epilepsy Goals Patient will improve cognitive-communication necessary for safety and daily living tasks with minimal assist. Speech-Plan Patient/Family Goals Patient/Family Goals: Patient reported she would like to return home to prior level of mobility and independence. Treatment Plan Speech Therapy Treatment Plan: Discontinue ST, Goals Met Treatment Duration: Jul 13, 2019 Frequency: 4 times per week (4-5 x's per week) Estimated Hrs Per Day: .5 hour per day Rehab Potential: Good Barriers to Learning: Mild cognitive deficits;have since resolved Pt/Family Agrees to Plan: Yes Safety Risks/Education Teaching Recipient: Patient Teaching Methods: Demonstration Response to Teaching: Verbalize Understanding Education Topics Provided: Utilization of safety awareness for when she is discharged home Time Speech Therapy Time In: 10:45 Speech Therapy Time Out: 10:55 Total Billed Time: 10 Billed Treatment Time 1, SLTS No QUALITY CODES EXPRESSION OF IDEAS/WANTS: 4 UNDERSTANDING VERBAL CONTENT: 4 BRIEF INTERVIEW OF MENTAL STATUS: YES REPETITION OF 3 WORDS: YES TEMPORAL ORIENTATION OF DAY: CORRECT, MONTH: CORRECT, DAY: CORRECT RECALL OF SOCK: YES, COLOR: YES, BED: YES MEMORY/RECALL ABILITY OF CURRENT SEASON, ROOM NUMBER, AND THAT SHE IS IN THE HOSPITAL CRISPIN HOLM Jul 10, 2019 10:58
--- NOTE | 2019-07-10 11:05 | NUR ---
CM/SS DISCHARGE C: Coordinated with patient preferred agency, [facility] [place], for RN/PT/OT. DME: Patient has FWW, she understands the recommendations from therapy team and typewriter ribbon winder to purchase a shower chair with back and arms, that it is private pay and not a benefit covered item. There were no new benefit-covered equipment items identified as necessary for her post op status. SUMMARY: Discussed with patient her request to discharge home sooner than later. Conferred with physician, therapy team, Unit RN. Determination was made that patient could safely return home with her spouse whom she indicates will be there with her close to 06/12. She stated he does all the cooking already, that there will be little change in their home routine other than her monitor and assistance during continued recovery. IMM2 presented, signed, charted. Medicare Compare presented to patient, reviewed agencies in her service area, and she selected [facility] as noted above. Patient will contact her family regarding pickers material handlers later today.
--- NOTE | 2019-07-10 11:27 | Therapy Team Discharge Summary ---
Therapy Discharge Summary Discharge Recommendations Date of Discharge Occupational Therapy Decreased Activ Tolerance, Decreased UE Strength, Edema, Impaired I ADL's, Impaired Self-Care Skills Speech-Language Pathology Patient was admitted to ARU s/p knee surgery. Patient received skilled cognitive therapy based on her SLUMS scores. Patient has met all ST goals. Patient is discharging to her home with her this date. Patient is discharging from skilled ST as well. PT Cook Pressure Goals Fpc Goals PT Cook Pressure Goals Time Frame: Jul 19, 2019 Roll Left to Right (QC): 6 Sit to Lying (QC): 6 Lying-Sitting on Side/Bed(QC): 6 Sit to Stand (QC): 6 Chair/Npj-ql-Vkfyu Xfer(QC): 6 Car Transfer (QC): 5 Does the Patient Walk: Yes Walk 10 feet (QC): 6 Walk 10ft-Uneven Surface(QC): 5 Walk 50ft with 2 Turns (QC): 6 Walk 150 ft (QC): 6 Does the Pt use WC or Scooter?: No 1 Step (curb) (QC): 5 4 Steps (QC): 5 12 Steps (QC): 9 Picking up an Object (QC): 9 OT Cook Pressure Goals Fpc Goals Time Frame: Jul 27, 2019 Eating (QC): 6 (met) Oral Hygiene (QC): 6 (met) Shower/Bathe Self (QC): 6 Upper Body Dressing (QC): 6 (met) Lower Body Dressing (QC): 6 (met) On/Off Footwear (QC): 6 Toileting Hygiene (QC): 6 Toilet/Commode Transfer (QC): 6 Additional Goals: 1-Demonstrate ADL Tasks, 2-Verbalize Understanding, 3-Impr oveStrength/Devika 1=Demonstrate adherence to instructed precautions during ADL tasks. 2=Patient will verbalize/demonstrate understanding of assistive devices/modifications for ADL. 3=Patient will improve strength/tolerance for activity to enable patient to perform ADL's. Speech Cook Pressure Goals Fpc Goals Patient will improve cognitive-communication necessary for safety and daily living tasks with minimal assist. Met CRISPIN HOLM Jul 10, 2019 11:27
[2019-07-10 14:28] VITALS: BP 165/70
--- NOTE | 2019-07-10 14:29 | NUR ---
BERNADETTE FLOREZ demonstrates understanding of discharge instructions and accurately returns instructions upon questioning. Copy of Post-Discharge Instructions given to PATIENT. BERNADETTE FLOERZ is able to manage continuing needs after discharge. Patient's belongings returned to PATIENT. Patient discharged from [facility] on 07/10/19 at 1430. BERNADETTE FLOREZ left floor via WHEELCHAIR, accompanied by STAFF AND FAMILY.
--- NOTE | 2019-07-11 07:58 | Therapy Team Discharge Summary ---
Therapy Discharge Summary Discharge Recommendations Date of Discharge Jul 10, 2019 at 14:30 Occupational Therapy Pt admits to ARU with L TKR. Pt admitting QC's show that pt was min A UB, max A LB dressing/ showering/ toilet hygiene, and TD with footwear. Pt and OT work towards higher functional IND and safety at home through UB ex, ADL training, review and use of AE, home safety and DME review, and pain management techniques. Pt limited by pain and SOB 1 tx day. Pt d/c's home with with recommendations of shower chair, d/c-ing with all ADLs at mod I to IND level (excluding showering and toilet transfer with SBA). Pt d/c OT services at this time. Decreased Activ Tolerance, Decreased UE Strength, Edema, Impaired I ADL's, Impaired Self-Care Skills PT Senior Care Goals Senior Care Goals PT Senior Care Goals Time Frame: Jul 19, 2019 Roll Left to Right (QC): 6 Sit to Lying (QC): 6 Lying-Sitting on Side/Bed(QC): 6 Sit to Stand (QC): 6 Chair/Lrh-ov-Rafsv Xfer(QC): 6 Car Transfer (QC): 5 Does the Patient Walk: Yes Walk 10 feet (QC): 6 Walk 10ft-Uneven Surface(QC): 5 Walk 50ft with 2 Turns (QC): 6 Walk 150 ft (QC): 6 Does the Pt use WC or Scooter?: No 1 Step (curb) (QC): 5 4 Steps (QC): 5 12 Steps (QC): 9 Picking up an Object (QC): 9 OT Box Toe Maker Goals Senior Care Goals Time Frame: Jul 27, 2019 Eating (QC): 6 (met) Oral Hygiene (QC): 6 (met) Shower/Bathe Self (QC): 6 Upper Body Dressing (QC): 6 (met) Lower Body Dressing (QC): 6 (met) On/Off Footwear (QC): 6 Toileting Hygiene (QC): 6 Toilet/Commode Transfer (QC): 6 Additional Goals: 1-Demonstrate ADL Tasks, 2-Verbalize Understanding, 3- ImproveStrength/Devika 1=Demonstrate adherence to instructed precautions during ADL tasks. 2=Patient will verbalize/demonstrate understanding of assistive devices/modifications for ADL. 3=Patient will improve strength/tolerance for activity to enable patient to perform ADL's. Speech Box Toe Maker Goals Box Toe Maker Goals Patient will improve cognitive-communication necessary for safety and daily living tasks with minimal assist. Met MAXI HENDRICKS OTR Jul 11, 2019 07:58
--- OUTSIDE RECORDS SUMMARY | 2019-07-13 16:09 | XMS REPORT | Continuity of Care Document ---
Author Organization Unknown Address Unknown Phone Unavailable Allergies Active Description Code Type Severity Reaction Onset Reported/Identified Relationship to Patient Clinical Status Yes No Known Drug Allergies [id number] Drug Allergy Unknown N/A 10/14/2011 Yes insulin detemir [id number] D rug Allergy Moderate RASH 09/22/2017 Yes insulin detemir [id number] D rug Allergy Moderate RASH, takes Frantz 02/2019 Yes morphine [id number] Drug Allergy Moderate Vomiting 07/05/2019 Medications There is no data. Problems Date Dx Coded Attending Type Code Diagnosis Diagnosed By 04/14/1335 LUCIO CURRY, ROSALINA Santacruz Ot M17.11 UNILATERAL PRIMARY OSTEOARTHRITIS, RIGHT 10/15/2011 Ot 244.9 HYPO THYROIDISM NOS 10/15/2011 Ot 250.00 MICKEY B WESTON WO COMPL, TYPE II OR UNSPEC TY 10/15/2011 Ot 401.9 HYPE RTENSION NOS 10/15/2011 Ot 427.32 ATR IAL FLUTTER 10/15/2011 Ot V58.67 JOSH G-TERM (CURRENT) USE OF INSULIN 04/01/2014 JAYNE HAYES MD Ot V76.12 04/01/2014 VIC CURRY, CAMERON Ot [...] Ot 599.72 04/13/2014 KARTIK BRANDT APRN Ot V04 .5 04/18/2014 VIC CURRY, CAMERON Ot 244.8 04/18/2014 HOVALENTINE CURRY, CAMERON Ot 250.03 04/18/2014 VIC CURRY, CAMERON Ot 272.4 04/18/2014 VIC CURYR, CAMERON Ot 276.7 04/18/2014 VIC CURRY, CAMERON Ot 401.1 04/18/2014 VIC CURRY, CAMERON Ot V58.69 04/18/2014 VIC CURRY, CAMERON Ot 599.72 04/18/2014 KARTIK BRANDT APRN Ot V04 .5 04/18/2014 BOB DUNCAN, AURORA L Ot 250.00 04/18/2014 BOB DUNCAN, AURORA L Ot 276.51 04/18/2014 NAVDEEP DENNEYEN L Ot 401.9 04/18/2014 BOB DUNCAN, AURORA L Ot 575.6 04/18/2014 NAVDEEP DENNEYEN L Ot 787.01 04/18/2014 NAVDEEP DENNEYEN L Ot 789.06 04/18/2014 NAVDEEP DENNEYEN L Ot V58.69 04/29/2014 VIC CURRY, CAMERON Ot 244.8 04/29/2014 VIC CURRY, CAMERON Ot 250.03 04/29/2014 VIC CURRY, CAMERON Ot 272.4 04/29/2014 HOVALENTINE CURRY, CAMERON Ot 276.7 04/29/2014 HOVALENTINE CURRY, CAMERON Ot 401.1 04/29/2014 HOVALENTINE CURRY, CAMERON Ot V58.69 05/13/2014 HOVALENTINE CURRY, CAMERON Ot 244.8 05/13/2014 HOVALENTINE CURRY, CAMERON Ot 250.03 05/13/2014 HO , CAMERON Ot 272.4 05/13/2014 HO , CAMERON Ot 276.7 05/13/2014 HO , CAMERON Ot 401.1 05/13/2014 HOVALENTINE CURRY, CAMERON Ot V58.69 06/11/2014 NAVDEEP DENNEYEN L Ot 787.01 06/11/2014 NAVDEEP DENNEYEN L Ot 789.01 06/11/2014 NAVDEEP DENNEYEN L Ot 789.06 07/04/2014 VIC CURRY, CAMERON Ot 244.8 07/04/2014 VIC CURRY, CAMERON Ot 250.03 07/04/2014 VIC CURRY, CAMERON Ot 272.4 07/04/2014 VIC CURRY, CAMERON Ot 276.7 07/04/2014 VIC CURRY, CAMERON Ot 401.1 07/04/2014 VIC CURRY, CAMERON Ot V58.69 07/04/2014 VIC CURRY, CAMERON Ot 599.72 07/04/2014 KARTIK BRANDT APRN Ot V04 .5 07/04/2014 BOB DUNCAN, AURORA L Ot 787.01 07/04/2014 BOB PA, AURORA L Ot 789.01 07/04/2014 BOB PA, AURORA L Ot 789.06 07/10/2014 Ot 250.03 07/10/2014 [...] Ot R31.2 05/27/2015 VIC CURRY, CAMERON Ot Z79.89 9 08/13/2015 VIC CURRY, CAMERON Ot E03.9 08/13/2015 VIC CURRY, CAMERON Ot E10.65 08/13/2015 VIC CURRY, CAMERON Ot E78.5 08/13/2015 VIC CURRY, CAMERON Ot E87.5 08/13/2015 VIC CURRY, CAMERON Ot I10 08/13/2015 VIC CURRY, CAMERON Ot Z79.89 9 09/04/2015 VIC CURRY, CAMERON Ot E03.9 HYPOTHYROIDISM, UNSPECIFIED 09/04/2015 VIC CURRY, CAMERON Ot E10.65 TYPE 1 DIABETES MELLITUS WITH HYPERGLYCE 09/04/2015 VIC CURRY, CAMERON Ot E78.5 HYPERLIPIDEMIA, UNSPECIFIED 09/04/2015 CAMERON HO MD Ot E87.5 HYPERKALEMIA 09/04/2015 CAMERON HO MD Ot I10 ESSENTIAL (PRIMARY) HYPERTENSION 09/04/2015 CAMERON HO MD Ot Z79.89 9 OTHER CUSTODIAL (CURRENT) DRUG THERAPY 11/21/2015 CAMERON HO MD Ot E03.9 HYPOTHYROIDISM, UNSPECIFIED 11/21/2015 CAMERON HO MD Ot E10.65 TYPE 1 DIABETES MELLITUS WITH HYPERGLYCE 11/21/2015 CAMERON HO MD Ot E66.9 OBESITY, UNSPECIFIED 11/21/2015 CAMERON HO MD Ot E78.5 HYPERLIPIDEMIA, UNSPECIFIED 11/21/2015 CAMERON HO MD Ot E87.5 HYPERKALEMIA 11/21/2015 CAMERON HO MD Ot Z79.89 9 OTHER CUSTODIAL (CURRENT) DRUG THERAPY 12/25/2015 CAMERON HO MD Ot E03.9 HYPOTHYROIDISM, UNSPECIFIED 12/25/2015 CAMERON HO MD Ot E10.65 TYPE 1 DIABETES MELLITUS WITH HYPERGLYCE 12/25/2015 CAMERON HO MD Ot E66.9 OBESITY, UNSPECIFIED 12/25/2015 CAMERON HO MD Ot E78.5 HYPERLIPIDEMIA, UNSPECIFIED 12/25/2015 CAMERON HO MD Ot E87.5 HYPERKALEMIA 12/25/2015 CAMERON HO MD Ot Z79.89 9 OTHER TUNE UP 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) DRUG THERAPY 03/17/2016 CAMERON HO MD Ot E10.65 TYPE 1 DIABETES MELLITUS WITH HYPERGLYCE 04/03/2016 CAMERON HO MD Ot 599.72 MICROSCOPIC HEMATURIA 04/03/2016 KARTIK BRANDT DIESEL FLEET MECHANIC Ot V04 .5 VACCIN FOR RABIES 04/04/2016 GUY CURRY, SHELL R Ot D64. 9 ANEMIA, UNSPECIFIED 04/04/2016 GUY CURRY, SHELL R Ot E03. 9 HYPOTHYROIDISM, UNSPECIFIED 04/04/2016 GUY CURRY, SHELL R Ot E10. 9 TYPE 1 DIABETES MELLITUS WITHOUT COMPLIC 04/04/2016 GUY CURRY, SHELL R Ot E66. 9 OBESITY, UNSPECIFIED 04/04/2016 SHELL TOVAR MD R Ot E78. 5 HYPERLIPIDEMIA, UNSPECIFIED 04/04/2016 SEGLIE MD, SHLEL R Ot I10 ESSENTIAL (PRIMARY) HYPERTENSION 04/04/2016 GUY CURRY, SHELL R Ot I48. 91 UNSPECIFIED ATRIAL FIBRILLATION 04/04/2016 GUY CURRY, SHELL R Ot R11. 2 NAUSEA WITH VOMITING, UNSPECIFIED 05/18/2016 HOOKS DO HEATHER Ot E03.9 HYPOTHYROIDISM, UNSPECIFIED 05/18/2016 HOOKS DO, HEATHER Ot E11.65 TYPE 2 DIABETES MELLITUS WITH HYPERGLYCE 05/18/2016 HOOKS DO HEATHER Ot E66.9 OBESITY, UNSPECIFIED 05/18/2016 HOOKS DO, HEATHER Ot E86.0 DEHYDRATION 05/18/2016 HOOKS DO, HEATHER Ot G47.30 SLEEP APNEA, UNSPECIFIED 05/18/2016 HOOKS DO, HEATHER Ot I10 ESSENTIAL (PRIMARY) HYPERTENSION 05/18/2016 HOOKS DO, HEATHER Ot I48.0 PAROXYSMAL ATRIAL FIBRILLATION 05/18/2016 JESSEE BOWLES HEATHER Ot J12.9 VIRAL PNEUMONIA, UNSPECIFIED 05/18/2016 JESSEE BOWLES HAETHER Ot Z68.41 BODY MASS INDEX (BMI) 40.0-44.9, [...] MICROSCOPIC HEMATURIA 06/08/2016 CAMERON HO MD Ot Z79.89 9 OTHER CUSTODIAL (CURRENT) DRUG THERAPY 06/08/2016 CAMERON HO MD Ot E03.9 HYPOTHYROIDISM, UNSPECIFIED 06/08/2016 CAMERON HO MD Ot E10.65 TYPE 1 DIABETES MELLITUS WITH HYPERGLYCE 06/08/2016 CAMERON HO MD Ot E78.5 HYPERLIPIDEMIA, UNSPECIFIED 06/08/2016 CAMERON HO MD Ot E87.5 HYPERKALEMIA 06/08/2016 CAMERON HO MD Ot I10 ESSENTIAL (PRIMARY) HYPERTENSION 06/08/2016 CAMERON HO MD Ot Z79.89 9 OTHER TUNE UP 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) DRUG THERAPY 06/08/2016 CAMERON HO MD Ot E03.9 HYPOTHYROIDISM, UNSPECIFIED 06/08/2016 CAMERON HO MD Ot E10.65 TYPE 1 DIABETES MELLITUS WITH HYPERGLYCE 06/08/2016 CAMERON HO MD Ot E66.9 OBESITY, UNSPECIFIED 06/08/2016 CAMERON HO MD Ot E78.5 HYPERLIPIDEMIA, UNSPECIFIED 06/08/2016 CAMERON HO MD Ot E87.5 HYPERKALEMIA 06/08/2016 CAMERON HO MD Ot Z79.89 9 OTHER TUNE UP 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) DRUG THERAPY 06/08/2016 CAMERON HO MD Ot E10.65 TYPE 1 DIABETES MELLITUS WITH HYPERGLYCE 06/24/2016 BEA COLEMAN DIESEL FLEET MECHANIC Ot J18.9 PNEUMONIA, UNSPECIFIED ORGANISM 06/24/2016 BEA COLEMAN DIESEL FLEET MECHANIC Ot R06.02 SHORTNESS OF BREATH 06/24/2016 BEA COLEMAN DIESEL FLEET MECHANIC Ot J18.9 PNEUMONIA, UNSPECIFIED ORGANISM 06/24/2016 BEA COLEMAN DIESEL FLEET MECHANIC Ot R06.02 SHORTNESS OF BREATH 07/06/2016 CAMERON HO MD Ot E10.65 TYPE 1 DIABETES MELLITUS WITH HYPERGLYCE 07/06/2016 CAMERON HO MD Ot I10 ESSENTIAL (PRIMARY) HYPERTENSION 07/06/2016 CAMERON HO MD Ot R31.29 OTHER MICROSCOPIC HEMATURIA 07/13/2016 BEA COLEMAN DIESEL FLEET MECHANIC Ot G47.10 HYPERSOMNIA, UNSPECIFIED 07/13/2016 BEA COLEMAN DIESEL FLEET MECHANIC Ot G47.9 SLEEP DISORDER, UNSPECIFIED 07/14/2016 BEA COLEMAN DIESEL FLEET MECHANIC Ot G47.10 HYPERSOMNIA, UNSPECIFIED 07/14/2016 BEA COLEMAN DIESEL FLEET MECHANIC Ot G47.50 PARASOMNIA, UNSPECIFIED 07/14/2016 BEA COLEMAN DIESEL FLEET MECHANIC Ot I48.0 PAROXYSMAL ATRIAL FIBRILLATION 07/16/2016 BEA COLEMAN DIESEL FLEET MECHANIC Ot J18.9 PNEUMONIA, UNSPECIFIED ORGANISM 07/16/2016 BEA COLEMAN DIESEL FLEET MECHANIC Ot R06.02 SHORTNESS OF BREATH 07/20/2016 BEA COLEMAN DIESEL FLEET MECHANIC Ot J18.9 PNEUMONIA, UNSPECIFIED ORGANISM 07/20/2016 BEA COLEMAN DIESEL FLEET MECHANIC Ot R06.02 SHORTNESS OF BREATH 09/08/2016 SONIA ALVAREZ DIESEL FLEET MECHANIC Ot J20.8 ACUTE BRONCHITIS DUE TO OTHER SPECIFIED 09/15/2016 CAMERON HO MD Ot E10.65 TYPE 1 DIABETES MELLITUS WITH HYPERGLYCE 09/15/2016 CAMERON HO MD Ot R31.29 OTHER MICROSCOPIC HEMATURIA 09/29/2016 SONIA ALVAREZ DIESEL FLEET MECHANIC Ot J20.8 ACUTE BRONCHITIS DUE TO OTHER SPECIFIED 10/06/2016 CAMERON HO MD Ot E10.65 TYPE 1 [...] MICROSCOPIC HEMATURIA 12/15/2016 CAMERON HO MD Ot Z68.41 BODY MASS INDEX (BMI) 40.0-44.9, ADULT 01/10/2017 CAMERON HO MD Ot E03.9 HYPOTHYROIDISM, UNSPECIFIED 01/10/2017 CAMERON HO MD Ot E10.65 TYPE 1 DIABETES MELLITUS WITH HYPERGLYCE 01/10/2017 CAMERON HO MD Ot E66.9 OBESITY, UNSPECIFIED 01/10/2017 CAMERON HO MD Ot E78.5 HYPERLIPIDEMIA, UNSPECIFIED 01/10/2017 CAMERON HO MD Ot E87.5 HYPERKALEMIA 01/10/2017 CAMERON HO MD Ot I10 ESSENTIAL (PRIMARY) HYPERTENSION 01/10/2017 CAMERON HO MD Ot R31.29 OTHER MICROSCOPIC HEMATURIA 01/10/2017 CAMERON HO MD Ot Z68.41 BODY MASS INDEX (BMI) 40.0-44.9, [...] R31.29 OTHER MICROSCOPIC HEMATURIA 04/18/2017 CAMERON HO MD, Ot Z79.89 9 OTHER CUSTODIAL (CURRENT) DRUG THERAPY 05/25/2017 GUY CURRY SHELL R Ot M23.8X2 OTHER INTERNAL DERANGEMENTS OF LEFT KNEE 05/25/2017 SHELL TOVAR MD R Ot M25.462 EFFUSION, LEFT KNEE 05/25/2017 GUY CURRY SHELL R Ot 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2 ENCOUNTER FOR SCREENING FOR OTHER BACTER 08/03/2017 ROSALINA VALDES MD Ot E11.9 TYPE 2 DIABETES MELLITUS WITHOUT COMPLIC 08/03/2017 ROSALINA VALDES MD, Ot E78.5 HYPERLIPIDEMIA, UNSPECIFIED 08/03/2017 ROSALINA VALDES MD Ot G47.33 OBSTRUCTIVE SLEEP APNEA (ADULT) (PEDIATR 08/03/2017 ROSALINA VALDES MD Ot I1 0 ESSENTIAL (PRIMARY) HYPERTENSION 08/03/2017 ROSALINA VALDES MD Ot I48.91 UNSPECIFIED ATRIAL FIBRILLATION 08/03/2017 ROSALINA VALDES MD Ot J45.909 UNSPECIFIED ASTHMA, UNCOMPLICATED 08/03/2017 ROSALINA VALDES MD Ot K21.9 GASTRO-ESOPHAGEAL REFLUX DISEASE WITHOUT 08/03/2017 ROSALINA VALDES MD Ot M23.8X1 OTHER INTERNAL DERANGEMENTS OF RIGHT KNE 08/03/2017 ROSALINA VALDES MD Ot M94.261 CHONDROMALACIA, RIGHT KNEE 08/03/2017 ROSALINA VALDES MD Ot Z79.899 OTHER CUSTODIAL (CURRENT) DRUG THERAPY 08/03/2017 ROSALINA VALDES MD Ot Z88.8 ALLERGY STATUS TO OTH DRUG/MEDS/BIOL SUB 08/04/2017 ROSALINA VALDES MD, Ot E11.9 TYPE 2 DIABETES MELLITUS WITHOUT COMPLIC 08/04/2017 ROSALINA VALDES MD Ot E78.5 HYPERLIPIDEMIA, UNSPECIFIED 08/04/2017 ROSALINA VALDES MD, Ot G47.33 OBSTRUCTIVE SLEEP APNEA (ADULT) (PEDIATR 08/04/2017 ROSALINA VALDES MD Ot I1 0 ESSENTIAL (PRIMARY) HYPERTENSION 08/04/2017 ROSALINA VALDES MD Ot I48.91 UNSPECIFIED ATRIAL FIBRILLATION 08/04/2017 ROSALINA VALDES MD Ot J45.909 UNSPECIFIED ASTHMA, UNCOMPLICATED 08/04/2017 ROSALINA VALDES MD Ot K21.9 GASTRO-ESOPHAGEAL REFLUX DISEASE WITHOUT 08/04/2017 ROSALINA VALDES MD Ot M23.8X1 OTHER INTERNAL DERANGEMENTS OF RIGHT KNE 08/04/2017 ROSALINA VALDES MD Ot M94.261 CHONDROMALACIA, RIGHT KNEE 08/04/2017 ROSALINA VALDES MD Ot Z79.899 OTHER CUSTODIAL (CURRENT) DRUG THERAPY 08/04/2017 ROSALINA VALDES MD Ot Z88.8 ALLERGY STATUS TO OTH DRUG/MEDS/BIOL SUB 08/09/2017 ROSALINA VALDES MD Ot E11.9 TYPE 2 DIABETES MELLITUS WITHOUT COMPLIC 08/09/2017 ROSALINA VALDES MD Ot E78.5 HYPERLIPIDEMIA, UNSPECIFIED 08/09/2017 ROSALINA VALDES MD Ot G47.33 OBSTRUCTIVE SLEEP APNEA (ADULT) (PEDIATR 08/09/2017 ROSALINA VALDES MD Ot I1 0 ESSENTIAL (PRIMARY) HYPERTENSION 08/09/2017 ROSALINA VALDES MD Ot I48.91 UNSPECIFIED ATRIAL FIBRILLATION 08/09/2017 ROSALINA VALDES MD Ot J45.909 UNSPECIFIED ASTHMA, UNCOMPLICATED 08/09/2017 ROSALINA VALDES MD Ot K21.9 GASTRO-ESOPHAGEAL REFLUX DISEASE WITHOUT 08/09/2017 ROSALINA VALDES MD Ot M23.8X1 OTHER INTERNAL DERANGEMENTS OF RIGHT KNE 08/09/2017 ROSALINA VALDES MD Ot M94.261 CHONDROMALACIA, RIGHT KNEE 08/09/2017 ROSALINA VALDES MD Ot Z79.899 OTHER TUNE UP 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) DRUG THERAPY 08/09/2017 ROSALINA VALDES MD Ot Z88.8 ALLERGY STATUS TO OTH DRUG/MEDS/BIOL SUB 08/19/2017 ROSALINA VALDES MD Ot E11.9 TYPE 2 DIABETES MELLITUS WITHOUT COMPLIC 08/19/2017 ROSALINA VALDES MD Ot E78.5 HYPERLIPIDEMIA, UNSPECIFIED 08/19/2017 ROSALINA VALDES MD Ot G47.33 OBSTRUCTIVE SLEEP APNEA (ADULT) (PEDIATR 08/19/2017 ROSALINA VALDES MD Ot I1 0 ESSENTIAL (PRIMARY) HYPERTENSION 08/19/2017 ROSALINA VALDES MD Ot I48.91 UNSPECIFIED ATRIAL FIBRILLATION 08/19/2017 ROSALINA VALDES MD Ot J45.909 UNSPECIFIED ASTHMA, UNCOMPLICATED 08/19/2017 ROSALINA VALDES MD Ot K21.9 GASTRO-ESOPHAGEAL REFLUX DISEASE WITHOUT 08/19/2017 ROSALINA VALDES MD Ot M23.8X1 OTHER INTERNAL DERANGEMENTS OF RIGHT KNE 08/19/2017 ROSALINA VALDES MD Ot M94.261 CHONDROMALACIA, RIGHT KNEE 08/19/2017 ROSALINA VALDES MD, Ot Z79.899 OTHER TUNE UP 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) DRUG THERAPY 08/19/2017 ROSALINA VALDES MD, Ot Z88.8 ALLERGY STATUS TO OT DRUG/MEDS/BIOL SUB 09/22/2017 VIC CURRY, CAMERON Ot 599.72 MICROSCOPIC HEMATURIA 09/22/2017 KARTIK BRANDT DIESEL FLEET MECHANIC Ot V04 .5 VACCIN FOR RABIES 09/22/2017 ROSALINA VALDES MD Ot M17.11 UNILATERAL PRIMARY OSTEOARTHRITIS, RIGHT 09/22/2017 ROSALINA VALDES MD Ot M23.8X2 OTHER INTERNAL DERANGEMENTS OF LEFT KNEE 09/22/2017 ROSALINA VALDES MD Ot Z01.818 ENCOUNTER FOR OTHER PREPROCEDURAL EXAMIN 09/22/2017 ROSALINA VALDES MD Ot M23.8X2 OTHER INTERNAL DERANGEMENTS OF LEFT KNEE 09/22/2017 ROSALINA VALDES MD Ot Z01.818 ENCOUNTER FOR OTHER PREPROCEDURAL EXAMIN 09/27/2017 SHIN SANTIAGO MD Ot E03.9 HYPOTHYROIDISM, UNSPECIFIED 09/27/2017 SHIN SANTIAGO MD Ot E11.9 TYPE 2 DIABETES MELLITUS WITHOUT COMPLIC 09/27/2017 SHIN SANTIAGO MD Ot E78.00 PURE HYPERCHOLESTEROLEMIA, UNSPECIFIED 09/27/2017 SHIN SANTIAGO MD Ot G47.30 SLEEP APNEA, UNSPECIFIED 09/27/2017 SHIN SANTIAGO MD Ot G89.29 OTHER CHRONIC PAIN 09/27/2017 SHIN SANTIAGO MD Ot I10 ESSENTIAL (PRIMARY) HYPERTENSION 09/27/2017 SHIN SANTIAGO MD, Ot I48.91 UNSPECIFIED ATRIAL FIBRILLATION 09/27/2017 SHIN SANTIAGO MD, Ot J45.909 UNSPECIFIED ASTHMA, UNCOMPLICATED 09/27/2017 SHIN SANTIAGO MD, Ot K21.9 GASTRO-ESOPHAGEAL REFLUX DISEASE WITHOUT 09/27/2017 SHIN SANTIAGO MD, Ot M17.11 UNILATERAL PRIMARY OSTEOARTHRITIS, RIGHT 09/27/2017 SHIN SANTIAGO MD, Ot M25.569 PAIN IN UNSPECIFIED KNEE 09/27/2017 SHIN SANTIAGO MD, Ot R10.9 UNSPECIFIED ABDOMINAL PAIN 09/27/2017 SHIN SANTIAGO MD, Ot R11.10 VOMITING, UNSPECIFIED 09/27/2017 SHIN SANTIAGO MD, Ot R11.2 NAUSEA WITH VOMITING, UNSPECIFIED 09/27/2017 SHIN SANTIAGO MD, Ot R19.7 DIARRHEA, UNSPECIFIED 09/27/2017 SHIN SANTIAGO MD, Ot Z79.01 CUSTODIAL (CURRENT) USE OF ANTICOAGULANT 09/27/2017 SHIN SANTIAGO MD, Ot Z80.42 FAMILY HISTORY OF MALIGNANT NEOPLASM OF 09/27/2017 SHIN SANTIAGO MD, Ot Z82.49 FAMILY HX OF ISCHEM HEART DIS AND OTH DI 09/27/2017 SHIN SANTIAGO MD, Ot Z88.8 ALLERGY STATUS TO OTH DRUG/MEDS/BIOL SUB 09/27/2017 SHIN SANTIAGO MD, Ot Z90.710 ACQUIRED ABSENCE OF BOTH CERVIX AND UTER 09/29/2017 SHIN SANTIAGO MD, Ot E03.9 HYPOTHYROIDISM, UNSPECIFIED 09/29/2017 SHIN SANTIAGO MD, Ot E11.9 TYPE 2 DIABETES MELLITUS WITHOUT COMPLIC 09/29/2017 SHIN SANTIAGO MD, Ot E78.00 PURE HYPERCHOLESTEROLEMIA, UNSPECIFIED 09/29/2017 SHIN SANTIAGO MD, Ot G47.30 SLEEP APNEA, UNSPECIFIED 09/29/2017 SHIN SANTIAGO MD, Ot G89.29 OTHER CHRONIC PAIN 09/29/2017 BRUEGGEMANN MD, SHIN T Ot I10 ESSENTIAL (PRIMARY) HYPERTENSION 09/29/2017 SHIN SANTIAGO MD, Ot I48.91 UNSPECIFIED ATRIAL FIBRILLATION 09/29/2017 SHIN SANTIAGO MD, Ot J45.909 UNSPECIFIED ASTHMA, UNCOMPLICATED 09/29/2017 SHIN SANTIAGO MD, Ot K21.9 GASTRO-ESOPHAGEAL REFLUX DISEASE WITHOUT 09/29/2017 SHIN SANTIAGO MD, Ot M17.11 UNILATERAL PRIMARY OSTEOARTHRITIS, RIGHT 09/29/2017 SHIN SANTIAGO MD, Ot M25.569 PAIN IN UNSPECIFIED KNEE 09/29/2017 SHIN SANTIAGO MD, Ot R10.9 UNSPECIFIED ABDOMINAL PAIN 09/29/2017 SHIN SANTIAGO MD, Ot R11.10 VOMITING, UNSPECIFIED 09/29/2017 SHIN SANTIAGO MD, Ot R11.2 NAUSEA WITH VOMITING, UNSPECIFIED 09/29/2017 SHIN SANTIAGO MD, Ot R19.7 DIARRHEA, UNSPECIFIED 09/29/2017 SHIN SANTIAGO MD, Ot Z79.01 TUNE UP 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) USE OF ANTICOAGULANT 09/29/2017 SHIN SANTIAGO MD, Ot Z80.42 FAMILY HISTORY OF MALIGNANT NEOPLASM OF 09/29/2017 SHIN SANTIAGO MD, Ot Z82.49 FAMILY HX OF ISCHEM HEART DIS AND OTH DI 09/29/2017 SHIN SANTIAGO MD, Ot Z88.8 ALLERGY STATUS TO OTH DRUG/MEDS/BIOL SUB 09/29/2017 SHIN SANTIAGO MD, Ot Z90.710 ACQUIRED ABSENCE OF BOTH CERVIX AND UTER 09/29/2017 SHIN SANTIAGO MD, Ot E03.9 HYPOTHYROIDISM, UNSPECIFIED 09/29/2017 SHIN SANTIAGO MD, Ot E11.9 TYPE 2 DIABETES MELLITUS WITHOUT COMPLIC 09/29/2017 SHIN SANTIAGO MD, Ot E78.00 PURE HYPERCHOLESTEROLEMIA, UNSPECIFIED 09/29/2017 SHIN SANTIAGO MD, Ot G47.30 SLEEP APNEA, UNSPECIFIED 09/29/2017 SHIN SANTIAGO MD, Ot G89.29 OTHER CHRONIC PAIN 09/29/2017 SHIN SANTIAGO MD, Ot I10 ESSENTIAL (PRIMARY) HYPERTENSION 09/29/2017 SHIN SANTIAGO MD, Ot I48.91 UNSPECIFIED ATRIAL FIBRILLATION 09/29/2017 SHIN SANTIAGO MD, Ot J45.909 UNSPECIFIED ASTHMA, UNCOMPLICATED 09/29/2017 SHIN SANTIAGO MD, Ot K21.9 GASTRO-ESOPHAGEAL REFLUX DISEASE WITHOUT 09/29/2017 SHIN SANTIAGO MD, Ot M17.11 UNILATERAL PRIMARY OSTEOARTHRITIS, RIGHT 09/29/2017 SHIN SANTIAGO MD, Ot M25.569 PAIN IN UNSPECIFIED KNEE 09/29/2017 SHIN SANTIAGO MD, Ot R10.9 UNSPECIFIED ABDOMINAL PAIN 09/29/2017 SHIN SANTIAGO MD, Ot R11.10 VOMITING, UNSPECIFIED 09/29/2017 SHIN SANTIAGO MD, Ot R11.2 NAUSEA WITH VOMITING, UNSPECIFIED 09/29/2017 SHIN SANTIAGO MD, Ot R19.7 DIARRHEA, UNSPECIFIED 09/29/2017 SHIN SANTIAGO MD, Ot Z79.01 CUSTODIAL (CURRENT) USE OF ANTICOAGULANT 09/29/2017 SHIN SANTIAGO MD, Ot Z80.42 FAMILY HISTORY OF MALIGNANT NEOPLASM OF 09/29/2017 SHIN SANTIAGO MD, Ot Z82.49 FAMILY HX OF ISCHEM HEART DIS AND OTH DI 09/29/2017 SHIN SANTIAGO MD, Ot Z88.8 ALLERGY STATUS TO OT DRUG/MEDS/BIOL SUB 09/29/2017 SHIN SANTIAGO MD, Ot Z90.710 ACQUIRED ABSENCE OF BOTH CERVIX AND UTER 10/04/2017 ROSALINA VALDES MD Ot M17.11 UNILATERAL PRIMARY OSTEOARTHRITIS, RIGHT 10/07/2017 ROSALINA VALDES MD, Ot M17.11 UNILATERAL PRIMARY OSTEOARTHRITIS, RIGHT 10/12/2017 ROSALINA VALDES MD, Ot E03.9 HYPOTHYROIDISM, UNSPECIFIED 10/12/2017 ROSALINA VALDES MD Ot E11.9 TYPE 2 DIABETES MELLITUS WITHOUT COMPLIC 10/12/2017 ROSALINA VALDES MD, Ot E78.5 HYPERLIPIDEMIA, UNSPECIFIED 10/12/2017 ROSALINA VALDES MD, Ot I1 0 ESSENTIAL (PRIMARY) HYPERTENSION 10/12/2017 ROSALINA VALDES MD Ot I48.91 UNSPECIFIED ATRIAL FIBRILLATION 10/12/2017 ROSALINA VALDES MD, Ot J45.909 UNSPECIFIED ASTHMA, UNCOMPLICATED 10/12/2017 ROSALINA VALDES MD Ot K21.9 GASTRO-ESOPHAGEAL REFLUX DISEASE WITHOUT 10/12/2017 ROSALINA VALDES MD Ot M23.8X2 OTHER INTERNAL DERANGEMENTS OF LEFT KNEE 10/12/2017 ROSALINA VALDES MD Ot M94.262 CHONDROMALACIA, LEFT KNEE 10/12/2017 ROSALINA VALDES MD, Ot 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.4 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) USE OF 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 10/12/2017 ROSALINA VALDES MD Ot Z79.899 OTHER CUSTODIAL (CURRENT) DRUG THERAPY 10/13/2017 ROSALINA VALDES MD, Ot E03.9 HYPOTHYROIDISM, UNSPECIFIED 10/13/2017 ROSALINA VALDES MD Ot E11.9 TYPE 2 DIABETES MELLITUS WITHOUT COMPLIC 10/13/2017 ROSALINA VALDES MD Ot E78.5 HYPERLIPIDEMIA, UNSPECIFIED 10/13/2017 ROSALINA VALDES MD, Ot I1 0 ESSENTIAL (PRIMARY) HYPERTENSION 10/13/2017 ROSALINA VALDES MD, Ot I48.91 UNSPECIFIED ATRIAL FIBRILLATION 10/13/2017 ROSALINA VALDES MD, Ot J45.909 UNSPECIFIED ASTHMA, UNCOMPLICATED 10/13/2017 ROSALINA VALDES MD, Ot K21.9 GASTRO-ESOPHAGEAL REFLUX DISEASE WITHOUT 10/13/2017 ROSALINA VALDES MD, Ot M23.8X2 OTHER INTERNAL DERANGEMENTS OF LEFT KNEE 10/13/2017 ROSALINA VALDES MD Ot M94.262 CHONDROMALACIA, LEFT KNEE 10/13/2017 ROSALINA VALDES MD Ot Z79.4 CUSTODIAL (CURRENT) USE OF INSULIN 10/13/2017 ROSALINA VALDES MD Ot Z79.899 OTHER TUNE UP 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) DRUG THERAPY 11/16/2017 ROSALINA VALDES MD Ot M17.11 UNILATERAL PRIMARY OSTEOARTHRITIS, RIGHT 11/17/2017 ROSALINA VALDES MD Ot M17.11 UNILATERAL PRIMARY OSTEOARTHRITIS, RIGHT 11/18/2017 ROSALINA VALDES MD Ot M17.11 UNILATERAL PRIMARY OSTEOARTHRITIS, RIGHT 11/21/2017 LUCIO CURRY, ROSALINA Santacruz Ot M17.11 UNILATERAL PRIMARY OSTEOARTHRITIS, RIGHT 11/22/2017 LUCIO CURRY, ROSALINA Santacruz Ot M17.11 UNILATERAL PRIMARY OSTEOARTHRITIS, RIGHT 12/02/2017 LUCIO CURRY, ROSALINA Santacruz Ot M17.11 UNILATERAL PRIMARY OSTEOARTHRITIS, RIGHT 12/09/2017 CAMERON HO MD Ot 250.03 DIAB [place] WO COMPL, TYPE I [JUVENILE TYP 12/09/2017 CAMERON HO MD Ot 599.72 MICROSCOPIC HEMATURIA 12/09/2017 CAMERON HO MD Ot E03.9 HYPOTHYROIDISM, UNSPECIFIED 12/09/2017 CAMERON HO MD Ot E10.65 TYPE 1 DIABETES MELLITUS WITH HYPERGLYCE 12/09/2017 CAMERON HO MD Ot E66.9 OBESITY, UNSPECIFIED 12/09/2017 CAMERON HO MD Ot E78.5 HYPERLIPIDEMIA, UNSPECIFIED 12/09/2017 CAMERON HO MD Ot E87.6 HYPOKALEMIA 12/09/2017 CAMERON HO MD Ot R31.2 OTHER MICROSCOPIC HEMATURIA 12/09/2017 CAMERON HO MD Ot Z79.89 9 OTHER TUNE UP 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) DRUG THERAPY 12/09/2017 CAMERON HO MD Ot E03.9 HYPOTHYROIDISM, UNSPECIFIED 12/09/2017 CAMERON HO MD Ot E10.65 TYPE 1 DIABETES MELLITUS WITH HYPERGLYCE 12/09/2017 CAMERON HO MD Ot E78.5 HYPERLIPIDEMIA, UNSPECIFIED 12/09/2017 CAMERON HO MD Ot E87.5 HYPERKALEMIA 12/09/2017 CAMERON HO MD Ot I10 ESSENTIAL (PRIMARY) HYPERTENSION 12/09/2017 CAMERON HO MD Ot Z79.89 9 OTHER TUNE UP 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) DRUG THERAPY 12/09/2017 CAMERON HO MD Ot E03.9 HYPOTHYROIDISM, UNSPECIFIED 12/09/2017 CAMERON HO MD Ot E10.65 TYPE 1 DIABETES MELLITUS WITH HYPERGLYCE 12/09/2017 CAMERON HO MD Ot E66.9 OBESITY, UNSPECIFIED 12/09/2017 CAMERON HO MD Ot E78.5 HYPERLIPIDEMIA, UNSPECIFIED 12/09/2017 CAMERON HO MD Ot E87.5 HYPERKALEMIA 12/09/2017 CAMERON HO MD Ot Z79.89 9 OTHER TUNE UP 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) DRUG THERAPY 12/09/2017 CAMERON HO MD Ot E10.65 TYPE 1 DIABETES MELLITUS WITH HYPERGLYCE 12/09/2017 CAMERON HO MD, Ot E10.65 TYPE 1 DIABETES MELLITUS WITH HYPERGLYCE 12/09/2017 CAMERON HO MD Ot I10 ESSENTIAL (PRIMARY) HYPERTENSION 12/09/2017 CAMERON HO MD Ot R31.29 OTHER MICROSCOPIC HEMATURIA 12/09/2017 BEA COLEMAN DIESEL FLEET MECHANIC Ot J18.9 PNEUMONIA, UNSPECIFIED ORGANISM 12/09/2017 BEA COLEMAN DIESEL FLEET MECHANIC Ot R06.02 SHORTNESS OF BREATH 12/09/2017 KIM SONIA R DIESEL FLEET MECHANIC Ot J20.8 ACUTE BRONCHITIS DUE TO OTHER SPECIFIED 12/09/2017 CAMERON HO MD, Ot E10.65 TYPE 1 DIABETES MELLITUS WITH HYPERGLYCE 12/09/2017 CAMERON HO MD Ot R31.29 OTHER MICROSCOPIC HEMATURIA 12/09/2017 CAMERON HO MD Ot E03.9 HYPOTHYROIDISM, UNSPECIFIED 12/09/2017 CAMERON HO MD Ot E10.65 TYPE 1 DIABETES MELLITUS WITH HYPERGLYCE 12/09/2017 CAMERON HO MD Ot E66.9 OBESITY, UNSPECIFIED 12/09/2017 CAMERON HO MD Ot E78.5 HYPERLIPIDEMIA, UNSPECIFIED 12/09/2017 CAMERON HO MD Ot E87.5 HYPERKALEMIA 12/09/2017 CAMERON HO MD Ot I10 ESSENTIAL (PRIMARY) HYPERTENSION 12/09/2017 CAMERON HO MD Ot R31.29 OTHER MICROSCOPIC HEMATURIA 12/09/2017 CAMERON HO MD Ot Z68.41 BODY MASS INDEX (BMI) 40.0-44.9, ADULT 12/09/2017 CAMERON HO MD Ot E03.9 HYPOTHYROIDISM, UNSPECIFIED 12/09/2017 CAMERON HO MD Ot E10.65 TYPE 1 DIABETES MELLITUS WITH HYPERGLYCE 12/09/2017 CAMERON HO MD, Ot E66.9 OBESITY, UNSPECIFIED 12/09/2017 CAMERON HO MD Ot E78.5 HYPERLIPIDEMIA, UNSPECIFIED 12/09/2017 CAMERON HO MD Ot I10 ESSENTIAL (PRIMARY) HYPERTENSION 12/09/2017 CAMERON HO MD Ot R31.29 OTHER MICROSCOPIC HEMATURIA 12/09/2017 CAMERON HO MD Ot Z79.89 9 OTHER TUNE UP 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) DRUG THERAPY 12/09/2017 SONIA ALVAREZ R DIESEL FLEET MECHANIC Ot M17.12 UNILATERAL PRIMARY OSTEOARTHRITIS, LEFT 12/09/2017 GUY CURRY, SHELL R Ot M23.8X2 OTHER INTERNAL DERANGEMENTS OF LEFT KNEE 12/09/2017 SHELL TOVAR MD R Ot M25.462 EFFUSION, LEFT KNEE 12/09/2017 SHELL TOVAR MD R Ot 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] 12/09/2017 CAMERON HO MD Ot E10.65 TYPE 1 DIABETES MELLITUS WITH HYPERGLYCE 12/09/2017 ROSALINA VALDES MD Ot M17.11 UNILATERAL PRIMARY OSTEOARTHRITIS, RIGHT 01/03/2018 ROSALINA VALDES MD Ot M17.11 UNILATERAL PRIMARY OSTEOARTHRITIS, RIGHT 01/06/2018 ROSALINA VALDES MD Ot M17.11 UNILATERAL PRIMARY OSTEOARTHRITIS, RIGHT 01/24/2018 PATTY BARCLAY Ot E10.65 TYPE 1 DIABETES MELLITUS WITH HYPERGLYCE 02/09/2018 PATTY BARCLAY Ot E10.65 TYPE 1 DIABETES MELLITUS WITH HYPERGLYCE 03/13/2018 ROSALINA VALDES MD Ot M51.16 INTERVERTEBRAL DISC DISORDERS W RADICULO 03/15/2018 ROSALINA VALDES MD, Ot M51.16 INTERVERTEBRAL DISC DISORDERS W RADICULO 04/27/2018 PATTY BARCLAY Ot E10.65 TYPE 1 DIABETES MELLITUS WITH HYPERGLYCE 06/07/2018 KAVEH CURRY FACC, CHARLES MONTALVOP CCDS Ot E11.9 TYPE 2 DIABETES MELLITUS WITHOUT COMPLIC 06/07/2018 KAVEH CURRY FACC, CHARLES FACP CCDS Ot E78.5 HYPERLIPIDEMIA, UNSPECIFIED 06/07/2018 KAVEH CURRY FACC, CHARLES FACP CCDS Ot G47.33 OBSTRUCTIVE SLEEP APNEA (ADULT) (PEDIATR 06/07/2018 KAVEH CURRY FACC, CHARLES FACP CCDS Ot I10 ESSENTIAL (PRIMARY) HYPERTENSION 06/07/2018 KAVEH CURRY FACC, CHARLES FACP CCDS Ot I48.0 PAROXYSMAL ATRIAL FIBRILLATION 06/07/2018 KAVEH CURRY FACC, CHARLES FACP CCDS Ot I77.89 OTHER SPECIFIED DISORDERS OF ARTERIES AN 06/07/2018 KAVEH CURRY FACC, CHARLSE FACP CCDS Ot R06.02 SHORTNESS OF BREATH 06/12/2018 KAVEH CURRY FACC, ALI FACP CCDS Ot E11.9 TYPE 2 DIABETES MELLITUS WITHOUT COMPLIC 06/12/2018 KAVEH CURRY FACC, ALI FACP CCDS Ot E78.5 HYPERLIPIDEMIA, UNSPECIFIED 06/12/2018 KAVEH CURRY FACC, ALI FACP CCDS Ot G47.33 OBSTRUCTIVE SLEEP APNEA (ADULT) (PEDIATR 06/12/2018 KAVEH CURRY FACC, ALI FACP CCDS Ot I10 ESSENTIAL (PRIMARY) HYPERTENSION 06/12/2018 [facility] CUR[facility], [facility] FACP CCDS Ot I48.0 PAROXYSMAL ATRIAL FIBRILLATION 06/12/2018 KAVEH CURRY FACC, ALI FACP CCDS Ot I77.89 OTHER SPECIFIED DISORDERS OF ARTERIES AN 06/12/2018 KAVEH CURRY [facility], ALI FACP CCDS Ot R06.02 SHORTNESS OF BREATH 06/27/2018 KAVEH CURRY [facility], ALI FACP CCDS Ot E11.9 TYPE 2 DIABETES MELLITUS WITHOUT COMPLIC 06/27/2018 KAVEH CURRY [facility], ALI FACP CCDS Ot E78.5 HYPERLIPIDEMIA, UNSPECIFIED 06/27/2018 KAVEH CURRY [facility], ALI FACP CCDS Ot G47.33 OBSTRUCTIVE SLEEP APNEA (ADULT) (PEDIATR 06/27/2018 KAVEH CURRY [facility], ALI FACP CCDS Ot I08.1 RHEUMATIC DISORDERS OF BOTH MITRAL AND T 06/27/2018 KAVEH CURRY [facility], ALI FACP CCDS Ot I10 ESSENTIAL (PRIMARY) HYPERTENSION 06/27/2018 KAVEH CURRY [facility], ALI FACP CCDS Ot I48.0 PAROXYSMAL ATRIAL FIBRILLATION 06/27/2018 KAVEH CURRY [facility], ALI FACP CCDS Ot R06.02 SHORTNESS OF BREATH 06/28/2018 KAVEH CURRY [facility], ALI FACP CCDS Ot E11.9 TYPE 2 DIABETES MELLITUS WITHOUT COMPLIC 06/28/2018 KAVEH CURRY [facility], ALI FACP CCDS Ot E78.5 HYPERLIPIDEMIA, UNSPECIFIED 06/28/2018 KAVEH CURRY FACC, ALI FACP CCDS Ot G47.33 OBSTRUCTIVE SLEEP APNEA (ADULT) (PEDIATR 06/28/2018 KAVEH CURRY [facility], ALI FACP CCDS Ot I10 ESSENTIAL (PRIMARY) HYPERTENSION 06/28/2018 KAVEH CURRY [facility], ALI FACP CCDS Ot I48.0 PAROXYSMAL ATRIAL FIBRILLATION 06/28/2018 KAVEH MONTALVOC, ALI FACP CCDS Ot I77.89 OTHER SPECIFIED DISORDERS OF ARTERIES AN 06/28/2018 KAVEH CURRY FACC, ALI FACP CCDS Ot R06.02 SHORTNESS OF BREATH 07/12/2018 PATTY BARCLAY Ot E10.65 TYPE 1 DIABETES MELLITUS WITH HYPERGLYCE 07/17/2018 PATTY BARCLAY Ot E10.65 TYPE 1 DIABETES MELLITUS WITH HYPERGLYCE 07/18/2018 KAVEH CURRY FACC, ALI FACP CCDS Ot E11.9 TYPE 2 DIABETES MELLITUS WITHOUT COMPLIC 07/18/2018 KAVEH CURRY FACC, ALI FACP CCDS Ot E78.5 HYPERLIPIDEMIA, UNSPECIFIED 07/18/2018 KAVEH CURRY FACC, ALI FACP CCDS Ot G47.33 OBSTRUCTIVE SLEEP APNEA (ADULT) (PEDIATR 07/18/2018 KAVEH CURRY FACC, ALI FACP CCDS Ot I08.1 RHEUMATIC DISORDERS OF BOTH MITRAL AND T 07/18/2018 KAVEH CURRY FACC, ALI FACP CCDS Ot I10 ESSENTIAL (PRIMARY) HYPERTENSION 07/18/2018 KAVEH CURRY [facility], ALI FACP CCDS Ot I48.0 PAROXYSMAL ATRIAL FIBRILLATION 07/18/2018 KAVEH CURRY FACC, ALI FACP CCDS Ot R06.02 SHORTNESS OF BREATH 07/21/2018 KAVEH CURRY [facility], ALI FACP CCDS Ot E11.9 TYPE 2 DIABETES MELLITUS WITHOUT COMPLIC 07/21/2018 KAVEH CURRY FACC, ALI FACP CCDS Ot E78.5 HYPERLIPIDEMIA, UNSPECIFIED 07/21/2018 KAVEH CURRY FACC, ALI FACP CCDS Ot G47.33 OBSTRUCTIVE SLEEP APNEA (ADULT) (PEDIATR 07/21/2018 KAVEH CURRY FACC, ALI FACP CCDS Ot I08.1 RHEUMATIC DISORDERS OF BOTH MITRAL AND T 07/21/2018 KAVEH CURRY FACC, ALI FACP CCDS Ot I10 ESSENTIAL (PRIMARY) HYPERTENSION 07/21/2018 KAVEH CURRY FACC, ALI FACP CCDS Ot I48.0 PAROXYSMAL ATRIAL FIBRILLATION 07/21/2018 KAVEH CURRY FACC, ALI FACP CCDS Ot R06.02 SHORTNESS OF BREATH 08/07/2018 PATTY BARCLAY Ot E10.65 TYPE 1 DIABETES MELLITUS WITH HYPERGLYCE 08/16/2018 ZAROSALINA ENGLE MD, Ot Z01.812 ENCOUNTER FOR PREPROCEDURAL LABORATORY E 08/23/2018 VIC CURRY, CAMERON Ot 599.72 MICROSCOPIC HEMATURIA 08/23/2018 KARTIK BRANDT APRN Ot V04 .5 VACCIN FOR RABIES 08/23/2018 VIC CURRY, CAMERON Ot 599.72 MICROSCOPIC HEMATURIA 08/23/2018 KARTIK BRANDT APRN Ot V04 .5 VACCIN FOR RABIES 08/25/2018 ROSALINA VALDES MD Ot D6 2 ACUTE POSTHEMORRHAGIC ANEMIA 08/25/2018 ROSALINA VALDES MD Ot E03.9 HYPOTHYROIDISM, UNSPECIFIED 08/25/2018 ROSALINA VALDES MD Ot E11.65 TYPE 2 DIABETES MELLITUS WITH HYPERGLYCE 08/25/2018 ROSALINA VALDES MD Ot E66.9 OBESITY, UNSPECIFIED 08/25/2018 ROSALINA VALDES MD Ot E78.5 HYPERLIPIDEMIA, UNSPECIFIED 08/25/2018 ROSALINA VALDES MD Ot G47.33 OBSTRUCTIVE SLEEP APNEA (ADULT) (PEDIATR 08/25/2018 ROSALINA VALDES MD Ot I1 0 ESSENTIAL (PRIMARY) HYPERTENSION 08/25/2018 ROSALINA VALDES MD Ot I48.0 PAROXYSMAL ATRIAL FIBRILLATION 08/25/2018 ROSALINA VALDES MD Ot I65.23 OCCLUSION AND STENOSIS OF BILATERAL CAPUTO 08/25/2018 ROSALINA VALDES MD Ot J45.909 UNSPECIFIED ASTHMA, UNCOMPLICATED 08/25/2018 ROSALINA VALDES MD Ot K21.9 GASTRO-ESOPHAGEAL REFLUX DISEASE WITHOUT 08/25/2018 ROSALINA VALDES MD Ot M17.11 UNILATERAL PRIMARY OSTEOARTHRITIS, RIGHT 08/25/2018 ROSALINA VALDES MD Ot R11.0 NAUSEA 08/25/2018 ROSALINA VALDES MD Ot Z68.37 BODY MASS INDEX (BMI) 37.0-37.9, ADULT 08/25/2018 ROSALINA VALDES MD Ot Z79.01 TUNE UP 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) USE OF ANTICOAGULANT 08/25/2018 ROSALINA VALDES MD Ot Z79.4 CUSTODIAL (CURRENT) USE OF INSULIN 09/11/2018 ROSALINA VALDES MD Ot M17.11 UNILATERAL PRIMARY OSTEOARTHRITIS, RIGHT 09/11/2018 ROSALINA VALDES MD Ot R53.83 OTHER FATIGUE 09/11/2018 ROSALINA VALDES MD Ot R82.90 UNSPECIFIED ABNORMAL FINDINGS IN URINE 09/11/2018 ROSALINA VALDES MD Ot Z01.810 ENCOUNTER FOR PREPROCEDURAL CARDIOVASCUL 09/11/2018 ROSALINA VALDES MD Ot Z01.811 ENCOUNTER FOR PREPROCEDURAL RESPIRATORY 09/11/2018 ROSALINA VALDES MD Ot Z01.812 ENCOUNTER FOR PREPROCEDURAL LABORATORY E 09/11/2018 ROSALINA VALDES MD Ot Z11.2 ENCOUNTER FOR SCREENING FOR OTHER BACTER 09/11/2018 ROSALINA VALDES MD Ot M17.11 UNILATERAL PRIMARY OSTEOARTHRITIS, RIGHT 09/11/2018 ROSALINA VALDES MD Ot R53.83 OTHER FATIGUE 09/11/2018 ROSALINA VALDES MD Ot R82.90 UNSPECIFIED ABNORMAL FINDINGS IN URINE 09/11/2018 ROSALINA VALDES MD Ot Z01.810 ENCOUNTER FOR PREPROCEDURAL CARDIOVASCUL 09/11/2018 ROSALINA VALDES MD Ot Z01.811 ENCOUNTER FOR PREPROCEDURAL RESPIRATORY 09/11/2018 ROSALINA VALDES MD Ot Z01.812 ENCOUNTER FOR PREPROCEDURAL LABORATORY E 09/11/2018 ROSALINA VALDES MD Ot Z11.2 ENCOUNTER FOR SCREENING FOR OTHER BACTER 09/27/2018 ROSALINA VALDES MD Ot Z47.1 AFTERCARE FOLLOWING JOINT REPLACEMENT [place] 09/27/2018 ROSALINA VALDES MD Ot Z96.651 PRESENCE OF RIGHT ARTIFICIAL KNEE JOINT 09/27/2018 ROSALINA VALDES MD Ot Z47.1 AFTERCARE FOLLOWING JOINT REPLACEMENT [place] 09/27/2018 ROSALINA VALDES MD Ot Z96.651 PRESENCE OF RIGHT ARTIFICIAL KNEE JOINT 10/24/2018 MAN CURRY, PADMAJA Lowe Ot E10.65 TYPE 1 DIABETES MELLITUS WITH HYPERGLYCE 10/26/2018 PADMAJA CONWAY MD Ot E10.65 TYPE 1 DIABETES MELLITUS WITH HYPERGLYCE 11/03/2018 ROSALINA VALDES MD Ot Z47.1 AFTERCARE FOLLOWING JOINT REPLACEMENT [place] 11/03/2018 ROSALINA VALDES MD Ot Z96.651 PRESENCE OF RIGHT ARTIFICIAL KNEE JOINT 11/08/2018 ROSALINA VALDES MD Ot Z47.1 AFTERCARE FOLLOWING JOINT REPLACEMENT [place] 11/08/2018 ROSALINA VALDES MD Ot Z96.651 PRESENCE OF RIGHT ARTIFICIAL KNEE JOINT 11/20/2018 MAN CURRY, PADMAJA Lowe Ot E03.9 HYPOTHYROIDISM, UNSPECIFIED 11/20/2018 MAN CURRY, PADMAJA Lowe Ot E10.65 TYPE 1 DIABETES MELLITUS WITH HYPERGLYCE 11/20/2018 MAN CURRY, PADMAJA Lowe Ot E78.2 MIXED HYPERLIPIDEMIA 11/20/2018 MAN CURRY, PADMAJA Lowe Ot I 10 ESSENTIAL (PRIMARY) HYPERTENSION 12/12/2018 LUCIO CURRY, ROSALINA Santacruz Ot Z47.1 AFTERCARE FOLLOWING JOINT REPLACEMENT [place] 12/12/2018 LUCIO CURRY, ROSALINA Santacruz Ot Z96.651 PRESENCE OF RIGHT ARTIFICIAL KNEE JOINT 12/24/2018 ROSALINA VALDES MD Ot Z47.1 AFTERCARE FOLLOWING JOINT REPLACEMENT [place] 12/24/2018 ROSALINA VALDES MD Ot Z96.651 PRESENCE OF RIGHT ARTIFICIAL KNEE JOINT 01/30/2019 PATTY BARCLAY Ot E10.65 TYPE 1 DIABETES MELLITUS WITH HYPERGLYCE 02/23/2019 PATTY BARCLAY Ot E10.9 TYPE 1 DIABETES MELLITUS WITHOUT COMPLIC 06/11/2019 PADMAJA CONWAY MD Ot E03.9 HYPOTHYROIDISM, UNSPECIFIED 06/11/2019 MAN CURRY, PADMAJA Lowe Ot E10.65 TYPE 1 DIABETES MELLITUS WITH HYPERGLYCE 06/11/2019 PADMAJA CONWAY MD Ot E78.2 MIXED HYPERLIPIDEMIA 06/11/2019 MAN CURRY, PADMAJA Lowe Ot I 10 ESSENTIAL (PRIMARY) HYPERTENSION 06/13/2019 PADMAJA CONWAY MD Ot E03.9 HYPOTHYROIDISM, UNSPECIFIED 06/13/2019 MAN CURRY, PADMAJA Lowe Ot E10.65 TYPE 1 DIABETES MELLITUS WITH HYPERGLYCE 06/13/2019 MAN CURRY, PADMAJA Lowe Ot E78.2 MIXED HYPERLIPIDEMIA 06/13/2019 MAN CURRY, PADMAJA Lowe Ot I 10 ESSENTIAL (PRIMARY) HYPERTENSION 06/27/2019 ROSALINA VALDES MD Ot Z01.812 ENCOUNTER FOR PREPROCEDURAL LABORATORY E 06/28/2019 ROSALINA VALDES MD Ot M17.12 UNILATERAL PRIMARY OSTEOARTHRITIS, LEFT 06/28/2019 ROSALINA VALDES MD Ot R53.83 OTHER FATIGUE 06/28/2019 LUCIO CURRY, ROSALINA Santacruz Ot Z01.812 ENCOUNTER FOR PREPROCEDURAL LABORATORY E 06/28/2019 ROSALINA VALDES MD Ot Z11.2 ENCOUNTER FOR SCREENING FOR OTHER BACTER 07/03/2019 MAN CURRY, PADMAJA Lowe Ot E03.9 HYPOTHYROIDISM, UNSPECIFIED 07/03/2019 MAN CURRY, PADMAJA Lowe Ot E10.65 TYPE 1 DIABETES MELLITUS WITH HYPERGLYCE 07/03/2019 MAN CURRY, PADMAJA Lowe Ot E78.2 MIXED HYPERLIPIDEMIA 07/03/2019 MAN CURRY, PADMAJA Lowe Ot I 10 ESSENTIAL (PRIMARY) HYPERTENSION 07/05/2019 LUCIO CURRY, ROSALINA Santacruz Ot E03.9 HYPOTHYROIDISM, UNSPECIFIED 07/05/2019 LUCIO CURRY, ROSALINA Santacruz Ot E11.65 TYPE 2 DIABETES MELLITUS WITH HYPERGLYCE 07/05/2019 LUCIO CURRY, ROSALINA Santacruz Ot E78.00 PURE HYPERCHOLESTEROLEMIA, UNSPECIFIED 07/05/2019 LUCIO CURRY, ROSALINA Santacruz Ot E78.5 HYPERLIPIDEMIA, UNSPECIFIED 07/05/2019 LUCIO CURRY, ROSALINA Santacruz Ot G47.33 OBSTRUCTIVE SLEEP APNEA (ADULT) (PEDIATR 07/05/2019 LUCIO CURRY, ROSALINA Santacruz Ot I08.1 RHEUMATIC DISORDERS OF BOTH MITRAL AND T 07/05/2019 ROSALINA VALDES MD Ot I1 0 ESSENTIAL (PRIMARY) HYPERTENSION 07/05/2019 LUCIO CURRY, ROSALINA Santacruz Ot I48.0 PAROXYSMAL ATRIAL FIBRILLATION 07/05/2019 ROSALINA VALDES MD Ot I65.23 OCCLUSION AND STENOSIS OF BILATERAL CAPUTO 07/05/2019 ROSALINA VALDES MD Ot I95.9 HYPOTENSION, UNSPECIFIED 07/05/2019 ROSALINA VALDES MD Ot J45.909 UNSPECIFIED ASTHMA, UNCOMPLICATED 07/05/2019 ROSALINA VALDES MD Ot K21.9 GASTRO-ESOPHAGEAL REFLUX DISEASE WITHOUT 07/05/2019 ROSALINA VALDES MD Ot K59.09 OTHER CONSTIPATION 07/05/2019 ROSALINA VALDES MD Ot M17.12 UNILATERAL PRIMARY OSTEOARTHRITIS, LEFT 07/05/2019 ROSALINA VALDES MD Ot R01.1 CARDIAC MURMUR, UNSPECIFIED 07/05/2019 ROSALINA VALDES MD Ot R11.2 NAUSEA WITH VOMITING, UNSPECIFIED 07/05/2019 ROSALINA VALDES MD Ot R33.9 RETENTION OF URINE, UNSPECIFIED 07/05/2019 ROSALINA VALDES MD Ot Z79.01 CUSTODIAL (CURRENT) USE OF ANTICOAGULANT 07/05/2019 ROSALINA VALDES MD Ot Z79.4 CUSTODIAL (CURRENT) USE OF INSULIN 07/05/2019 ROSALINA VALDES MD Ot Z96.651 PRESENCE OF RIGHT ARTIFICIAL KNEE JOINT 07/05/2019 VIC CURRY, CAMERON Ot 599.72 MICROSCOPIC HEMATURIA 07/05/2019 KARTIK BRANDT APRN Ot V04 .5 VACCIN FOR RABIES 07/10/2019 HOOKS DO, HEATHER Ot D62 ACUTE POSTHEMORRHAGIC ANEMIA 07/10/2019 HOOKS DO, HEATHER Ot E03.9 HYPOTHYROIDISM, UNSPECIFIED 07/10/2019 HOOKS DO, HEATHER Ot E11.65 TYPE 2 DIABETES MELLITUS WITH HYPERGLYCE 07/10/2019 HOOKS DO, HEATHER Ot E78.5 HYPERLIPIDEMIA, UNSPECIFIED 07/10/2019 HOOKS DO, HEATHER Ot G47.33 OBSTRUCTIVE SLEEP APNEA (ADULT) (PEDIATR 07/10/2019 HOOKS DO, HEATHER Ot G62.9 POLYNEUROPATHY, UNSPECIFIED 07/10/2019 HOOKS DO, HEATHER Ot I12.9 HYPERTENSIVE CHRONIC KIDNEY DISEASE W ST 07/10/2019 HOOKS DO, HEATHER Ot I38 ENDOCARDITIS, VALVE UNSPECIFIED 07/10/2019 HOOKS DO, HEATHER Ot I48.0 PAROXYSMAL ATRIAL FIBRILLATION 07/10/2019 HOOKS DO, HEATHER Ot I48.92 UNSPECIFIED ATRIAL FLUTTER 07/10/2019 HOOKS DO, HEATHER Ot I65.23 OCCLUSION AND STENOSIS OF BILATERAL CAPUTO 07/10/2019 HOOKS DO, HEATHER Ot N18.9 CHRONIC KIDNEY DISEASE, UNSPECIFIED 07/10/2019 HOOKS DO, HEATHER Ot R31.0 GROSS HEMATURIA 07/10/2019 HOOKS DO, HEATHER Ot Z47.1 AFTERCARE FOLLOWING JOINT REPLACEMENT CASTELLON 07/10/2019 HOOKS DO, HEATHER Ot Z79.01 CUSTODIAL (CURRENT) USE OF ANTICOAGULANT 07/10/2019 HOOKS DO, HEATHER Ot Z79.4 TUNE UP 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) USE OF INSULIN 07/10/2019 HOOKS DO, HEATHER Ot Z90.71 0 ACQUIRED ABSENCE OF BOTH CERVIX AND UTER 07/10/2019 HOOKS DO, HEATHER Ot Z96.65 2 PRESENCE OF LEFT ARTIFICIAL KNEE JOINT Procedures Code Description Performed By Per formed On [id number] RE PLACE OF R KNEE JT WITH SYNTH SUB, ARIANNA 08/23/[id number] OF L KNEE JT WITH SYNTH SUB, ARIANNA 07/04/2019 Results Test Result Range Complete urinalysis with reflex to cultu re - 02/25/16 10:59 Urine color determination YELLOW NRG Urine clarity determination CLEAR NR G Urine pH measurement by test strip 6 5-9 Specific gravity of urine by test strip 1.010 1.016-1.022 Urine protein assay by test strip, semi-quantitative NEGATIVE NEGATIVE Urine glucose detection by automated test strip 1+ NEGATIVE Erythrocytes detection in urine sediment by light micr oscopy 1+ NEGATIVE Urine ketones detection by automated test strip NE GATIVE NEGATIVE Urine nitrite detection by test strip NEGATIVE NEGATIVE Urine total bilirubin detection by test strip NEGA TIVE NEGATIVE Urine urobilinogen measurement by automated test strip (mass/volume) NORMAL NORMAL Urine leukocyte esterase detection by dipstick NEG ATIVE NEGATIVE Automated urine sediment erythrocyte cou nt by microscopy (number/high power field) NONE NRG Automated urine sediment leukocyte count by microscopy (number/high power field) NONE NRG Bacteria detection in urine sediment by light microsco py NEGATIVE NRG Squamous epithelial cells detection in u rine sediment by light microscopy 2-5 NRG Crystals detection in urine sediment by light microsco py NONE NRG Casts detection in urine sediment by light microscopy NONE NRG Mucus detection in urine sediment by light microscopy NEGATIVE NRG Complete urinalysis with reflex to culture NO NRG Serum or plasma glucose measurement (mas s/volume) - 02/25/16 10:59 Serum or plasma glucose measurement (mass/volume) 145 mg/dL 70-105 Hemoglobin A1c - 02/25/16 10:59 Hemoglobin A1c 6.5 % 4.5-6.2 Complete blood count (CBC) with automate d white blood cell (WBC) differential - 04/03/16 02:51 Blood leukocytes automated count (number/volume) 14.2 10*3/uL 4.3-11.0 Blood erythrocytes automated count (number/volume) 4.21 10*6/uL 4.35-5.85 Venous blood hemoglobin measurement (mass/volume) 12.3 g/dL 11.5-16.0 Blood hematocrit (volume fraction) 38 % 35-52 Automated erythrocyte mean corpuscular volume 89 [ foz_us] 80-99 Automated erythrocyte mean corpuscular h emoglobin (mass per erythrocyte) 29 pg 25-34 Automated erythrocyte mean corpuscular h emoglobin concentration measurement (mass/volume) 33 g/dL 32-36 Automated erythrocyte distribution width ratio 14. 2 % 10.0- 14.5 Automated blood platelet count (count/volume) 272 10*3/uL [...] 10*3 1.0-4.0 Blood monocytes automated count (number/volume) 0. 3 10*3 0.0-1.0 Automated eosinophil count 0.0 10*3/uL 0 .0-0.3 Automated blood basophil count (count/volume) 0.0 10*3/uL 0.0-0.1 Comprehensive metabolic panel - 04/03/16 02:51 Serum or plasma sodium measurement (moles/volume) 140 mmol/L 135-145 Serum or plasma potassium measurement (moles/volume) 4.9 mmol/L 3.6-5.0 Serum or plasma chloride measurement (moles/volume) 102 mmol/L 98-107 Carbon dioxide 25 mmol/L 21-32 Serum or plasma anion gap determination (moles/volume) 13 mmol/L 5-14 Serum or plasma urea nitrogen measurement (mass/volume ) 25 mg/dL 7-18 Serum or plasma creatinine measurement (mass/volume) 0.89 mg/dL 0.60-1.30 Serum or plasma urea nitrogen/creatinine mass ratio 28 NRG Serum or plasma creatinine measurement w ith calculation of estimated glomerular filtration rate > NRG Serum or plasma glucose measurement (mass/volume) 331 mg/dL 70-105 Serum or plasma calcium measurement (mass/volume) 9.1 mg/dL 8.5-10.1 Serum or plasma total bilirubin measurement (mass/volu me) 0.8 mg/dL 0.1-1.0 Serum or plasma alkaline phosphatase kaycee surement (enzymatic activity/volume) 82 U/L 40-136 Serum or plasma aspartate aminotransfera se measurement (enzymatic activity/volume) 23 U/L 5-34 Serum or plasma alanine aminotransferase measurement (enzymatic activity/volume) 19 U/L 0-55 Serum or plasma protein measurement (mass/volume) 7.0 g/dL 6.4-8.2 Serum or plasma albumin measurement (mass/volume) 4.0 g/dL 3.2-4.5 Serum or plasma C reactive protein measu rement (mass/volume) - 04/03/16 02:51 Serum or plasma C reactive protein measurement (mass/v olume) 0.84 mg/dL 0.00-0.50 Blood manual differential performed dete ction - 04/03/16 02:51 Blood monocytes/100 leukocytes 1 % NRG Manual blood segmented neutrophils/100 leukocytes 94 % NRG Blood band neutrophils/100 leukocytes 2 % NRG Manual blood lymphocytes/100 leukocytes 3 % NRG Blood erythrocyte morphology finding identification NORMAL NRG Complete urinalysis with reflex to cultu re - 04/03/16 03:50 Urine color determination YELLOW NRG Urine clarity determination CLEAR NR G Urine pH measurement by test strip 5 5-9 Specific gravity of urine by test strip 1.015 1.016-1.022 Urine protein assay by test strip, semi-quantitative NEGATIVE NEGATIVE Urine glucose detection by automated test strip 4+ NEGATIVE Erythrocytes detection in urine sediment by light micr oscopy 2+ NEGATIVE Urine ketones detection by automated test strip 3+ NEGATIVE Urine nitrite detection by test strip NEGATIVE NEGATIVE Urine total bilirubin detection by test strip NEGA TIVE NEGATIVE Urine urobilinogen measurement by automated test strip (mass/volume) NORMAL NORMAL Urine leukocyte esterase detection by dipstick NEG ATIVE NEGATIVE Automated urine sediment erythrocyte cou nt by microscopy (number/high power field) RARE NRG Automated urine sediment leukocyte count by microscopy (number/high power field) NONE NRG Bacteria detection in urine sediment by light microsco py TRACE NRG Squamous epithelial cells detection in u rine sediment by light microscopy 2-5 NRG Crystals detection in urine sediment by light microsco py NONE NRG Casts detection in urine sediment by light microscopy NONE NRG Mucus detection in urine sediment by light microscopy NEGATIVE NRG Complete urinalysis with reflex to culture NO NRG Capillary blood glucose measurement by g lucometer (mass/volume) - 04/03/16 04:20 Capillary blood glucose measurement by glucometer (mas s/volume) 274 mg/dL 70-110 Capillary blood glucose measurement by g lucometer (mass/volume) - 04/03/16 05:54 Capillary blood glucose measurement by glucometer (mas s/volume) 244 mg/dL 70-110 Whole blood basic metabolic panel - 03/16 01/29 09:38 Serum or plasma sodium measurement (moles/volume) 141 mmol/L 135-145 Serum or plasma potassium measurement (moles/volume) 4.3 mmol/L 3.6-5.0 Serum or plasma chloride measurement (moles/volume) 109 mmol/L 98-107 Carbon dioxide 23 mmol/L 21-32 Serum or plasma anion gap determination (moles/volume) 9 mmol/L 5-14 Serum or plasma urea nitrogen measurement (mass/volume ) 19 mg/dL 7-18 Serum or plasma creatinine measurement (mass/volume) 0.74 mg/dL 0.60-1.30 Serum or plasma urea nitrogen/creatinine mass ratio 26 NRG Serum or plasma creatinine measurement w ith calculation of estimated glomerular filtration rate > NRG Serum or plasma glucose measurement (mass/volume) 278 mg/dL 70-105 Serum or plasma calcium measurement (mass/volume) 8.6 mg/dL 8.5-10.1 Capillary blood glucose measurement by g lucometer (mass/volume) - 04/03/16 11:43 Capillary blood glucose measurement by glucometer (mas s/volume) 219 mg/dL 70-110 Capillary blood glucose measurement by g lucometer (mass/volume) - 04/03/16 14:38 Capillary blood glucose measurement by glucometer (mas s/volume) 272 mg/dL 70-110 Capillary blood glucose measurement by g lucometer (mass/volume) - 04/03/16 19:17 Capillary blood glucose measurement by glucometer (mas s/volume) 385 mg/dL 70-110 Complete blood count (CBC) with automate d white blood cell (WBC) differential - 04/04/16 05:55 Blood leukocytes automated count (number/volume) 12.5 10*3/uL 4.3-11.0 Blood erythrocytes automated count (number/volume) 3.83 10*6/uL 4.35-5.85 Venous blood hemoglobin measurement (mass/volume) 11.1 g/dL 11.5-16.0 Blood hematocrit (volume fraction) 35 % 35-52 Automated erythrocyte mean corpuscular volume 91 [ foz_us] 80-99 Automated erythrocyte mean corpuscular h emoglobin (mass per erythrocyte) 29 pg 25-34 Automated erythrocyte mean corpuscular h emoglobin concentration measurement (mass/volume) 32 g/dL 32-36 Automated erythrocyte distribution width ratio 14. 9 % 10.0- 14.5 Automated blood platelet count (count/volume) 265 10*3/uL [...] 10*3 1.0-4.0 Blood monocytes automated count (number/volume) 1. 5 10*3 0.0-1.0 Automated eosinophil count 0.0 10*3/uL 0 .0-0.3 Automated blood basophil count (count/volume) 0.0 10*3/uL 0.0-0.1 Comprehensive metabolic panel - 04/04/16 05:55 Serum or plasma sodium measurement (moles/volume) 140 mmol/L 135-145 Serum or plasma potassium measurement (moles/volume) 4.0 mmol/L 3.6-5.0 Serum or plasma chloride measurement (moles/volume) 110 mmol/L 98-107 Carbon dioxide 22 mmol/L 21-32 Serum or plasma anion gap determination (moles/volume) 8 mmol/L 5-14 Serum or plasma urea nitrogen measurement (mass/volume ) 19 mg/dL 7-18 Serum or plasma creatinine measurement (mass/volume) 0.77 mg/dL 0.60-1.30 Serum or plasma urea nitrogen/creatinine mass ratio 25 NRG Serum or plasma creatinine measurement w ith calculation of estimated glomerular filtration rate > NRG Serum or plasma glucose measurement (mass/volume) 229 mg/dL 70-105 Serum or plasma calcium measurement (mass/volume) 8.4 mg/dL 8.5-10.1 Serum or plasma total bilirubin measurement (mass/volu me) 0.7 mg/dL 0.1-1.0 Serum or plasma alkaline phosphatase kaycee surement (enzymatic activity/volume) 69 U/L 40-136 Serum or plasma aspartate aminotransfera se measurement (enzymatic activity/volume) 29 U/L 5-34 Serum or plasma alanine aminotransferase measurement (enzymatic activity/volume) 22 U/L 0-55 Serum or plasma protein measurement (mass/volume) 5.9 g/dL 6.4-8.2 Serum or plasma albumin measurement (mass/volume) 3.4 g/dL 3.2-4.5 Capillary blood glucose measurement by g lucometer (mass/volume) - 04/04/16 05:56 Capillary blood glucose measurement by glucometer (mas s/volume) 206 mg/dL 70-110 Capillary blood glucose measurement by g lucometer (mass/volume) - 04/04/16 09:28 Capillary blood glucose measurement by glucometer (mas s/volume) 266 mg/dL 70-110 Complete blood count (CBC) with automate d white blood cell (WBC) differential - 05/16/16 22:00 Blood leukocytes automated count (number/volume) 8.3 10*3/uL 4.3-11.0 Blood erythrocytes automated count (number/volume) 4.34 10*6/uL 4.35-5.85 Venous blood hemoglobin measurement (mass/volume) 12.6 g/dL 11.5-16.0 Blood hematocrit (volume fraction) 38 % 35-52 Automated erythrocyte mean corpuscular volume 88 [ foz_us] 80-99 Automated erythrocyte mean corpuscular h emoglobin (mass per erythrocyte) 29 pg 25-34 Automated erythrocyte mean corpuscular h emoglobin concentration measurement (mass/volume) 33 g/dL 32-36 Automated erythrocyte distribution width ratio 14. 2 % 10.0- 14.5 Automated blood platelet count (count/volume) 254 10*3/uL [...] 10*3 1.0-4.0 Blood monocytes automated count (number/volume) 0. 2 10*3 0.0-1.0 Automated eosinophil count 0.0 10*3/uL 0 .0-0.3 Automated blood basophil count (count/volume) 0.0 10*3/uL 0.0-0.1 Complete urinalysis with reflex to cultu re - 05/16/16 22:00 Urine color determination YELLOW NRG Urine clarity determination CLEAR NR G Urine pH measurement by test strip 5 5-9 Specific gravity of urine by test strip 1.025 1.016-1.022 Urine protein assay by test strip, semi-quantitative 2+ NEGATIVE Urine glucose detection by automated test strip 4+ NEGATIVE Erythrocytes detection in urine sediment by light micr oscopy 3+ NEGATIVE Urine ketones detection by automated test strip 4+ NEGATIVE Urine nitrite detection by test strip NEGATIVE NEGATIVE Urine total bilirubin detection by test strip NEGA TIVE NEGATIVE Urine urobilinogen measurement by automated test strip (mass/volume) NORMAL NORMAL Urine leukocyte esterase detection by dipstick NEG ATIVE NEGATIVE Automated urine sediment erythrocyte cou nt by microscopy (number/high power field) NONE NRG Automated urine sediment leukocyte count by microscopy (number/high power field) RARE NRG Bacteria detection in urine sediment by light microsco py TRACE NRG Squamous epithelial cells detection in u rine sediment by light microscopy 5-10 NRG Crystals detection in urine sediment by light microsco py NONE NRG Casts detection in urine sediment by light microscopy PRESENT NRG Mucus detection in urine sediment by light microscopy NEGATIVE NRG Complete urinalysis with reflex to culture NO NRG Hyaline casts detection in urine sediment by light chantel roscopy 5-10 NRG Comprehensive metabolic panel - 05/16/16 22:00 Serum or plasma sodium measurement (moles/volume) 136 mmol/L 135-145 Serum or plasma potassium measurement (moles/volume) 4.7 mmol/L 3.6-5.0 Serum or plasma chloride measurement (moles/volume) 98 mmol/L 98-107 Carbon dioxide 22 mmol/L 21-32 Serum or plasma anion gap determination (moles/volume) 16 mmol/L 5-14 Serum or plasma urea nitrogen measurement (mass/volume ) 20 mg/dL 7-18 Serum or plasma creatinine measurement (mass/volume) 0.87 mg/dL 0.60-1.30 Serum or plasma urea nitrogen/creatinine mass ratio 23 NRG Serum or plasma creatinine measurement w ith calculation of estimated glomerular filtration rate > NRG Serum or plasma glucose measurement (mass/volume) 340 mg/dL 70-105 Serum or plasma calcium measurement (mass/volume) 9.9 mg/dL 8.5-10.1 Serum or plasma total bilirubin measurement (mass/volu me) 0.5 mg/dL 0.1-1.0 Serum or plasma alkaline phosphatase kaycee surement (enzymatic activity/volume) 85 U/L 40-136 Serum or plasma aspartate aminotransfera se measurement (enzymatic activity/volume) 24 U/L 5-34 Serum or plasma alanine aminotransferase measurement (enzymatic activity/volume) 22 U/L 0-55 Serum or plasma protein measurement (mass/volume) 7.8 g/dL 6.4-8.2 Serum or plasma albumin measurement (mass/volume) 4.3 g/dL 3.2-4.5 Magnesium - 05/16/16 22:00 Magnesium 2.0 mg/dL 1.8-2.4 Serum or plasma troponin i.cardiac measu rement (mass/volume) - 05/16/16 22:00 Serum or plasma troponin i.cardiac measurement (mass/v olume) < ng/mL <0.30 Lipase - 05/16/16 22:00 Lipase 21 U/L 8-78 Blood manual differential performed dete ction - 05/16/16 22:00 Blood monocytes/100 leukocytes 3 % NRG Manual blood segmented neutrophils/100 leukocytes 93 % NRG Manual blood lymphocytes/100 leukocytes 4 % NRG Blood erythrocyte morphology finding identification NORMAL NRG Serum or plasma phosphate measurement (m ass/volume) - 05/16/16 22:00 Serum or plasma phosphate measurement (mass/volume) 3.9 mg/dL 2.3-4.7 Influenza virus A and B antigen detectio n - 05/16/16 22:17 FLU RESULT NEGATIVE FOR INFLUENZA A AND B ANTIGENS BY IA NRG Arterial blood gas measurement - 01/01/1 7 22:56 Blood pCO2 48 mm[Hg] 35-45 Blood pO2 36 mm[Hg] 79-93 Arterial blood bicarbonate measurement (moles/volume) 27 mmol/L 23-27 Arterial blood base excess by calculation 0.8 mmol /L -2.5-2.5 Arterial blood oxygen saturation measurement 63 % 94-100 * Inhaled oxygen flow rate NA NRG Arterial blood pH measurement with patient temperature correction 7.36 7.37-7.43 Arterial blood carbon dioxide, total measurement (mole s/volume) 28.2 mmol/L 21.0-31.0 Body site LEFT AC NRG Assessment of wrist artery patency prior to arterial p uncture NA NRG Setting of ventilation mode NO NR G Measurement of body temperature 98.8 NRG Blood lactic acid measurement (moles/vol ume) - 05/16/16 23:00 Blood lactic acid measurement (moles/volume) 0.9 m mol/L 0.5- 2.0 Bacterial blood culture - 05/16/16 23:00 Bacterial blood culture NG NRG Bacterial blood culture - 05/16/16 23:30 Bacterial blood culture NG NRG Methicillin resistant Staphylococcus aur eus (MRSA) screening culture - 05/17/16 02:10 Methicillin resistant Staphylococcus aureus (MRSA) scr eening culture NEG NRG Capillary blood glucose measurement by g lucometer (mass/volume) - 05/17/16 02:55 Capillary blood glucose measurement by glucometer (mas s/volume) 247 mg/dL 70-110 Complete blood count (CBC) with automate d white blood cell (WBC) differential - 05/17/16 03:58 Blood leukocytes automated count (number/volume) 12.6 10*3/uL 4.3-11.0 Blood erythrocytes automated count (number/volume) 3.90 10*6/uL 4.35-5.85 Venous blood hemoglobin measurement (mass/volume) 11.3 g/dL 11.5-16.0 Blood hematocrit (volume fraction) 35 % 35-52 Automated erythrocyte mean corpuscular volume 89 [ foz_us] 80-99 Automated erythrocyte mean corpuscular h emoglobin (mass per erythrocyte) 29 pg 25-34 Automated erythrocyte mean corpuscular h emoglobin concentration measurement (mass/volume) 33 g/dL 32-36 Automated erythrocyte distribution width ratio 14. 2 % 10.0- 14.5 Automated blood platelet count (count/volume) 230 10*3/uL [...] 10*3 1.0-4.0 Blood monocytes automated count (number/volume) 0. 7 10*3 0.0-1.0 Automated eosinophil count 0.0 10*3/uL 0 .0-0.3 Automated blood basophil count (count/volume) 0.0 10*3/uL 0.0-0.1 Whole blood basic metabolic panel - 07/02 03:58 Serum or plasma sodium measurement (moles/volume) 139 mmol/L 135-145 Serum or plasma potassium measurement (moles/volume) 4.2 mmol/L 3.6-5.0 Serum or plasma chloride measurement (moles/volume) 105 mmol/L 98-107 Carbon dioxide 21 mmol/L 21-32 Serum or plasma anion gap determination (moles/volume) 13 mmol/L 5-14 Serum or plasma urea nitrogen measurement (mass/volume ) 19 mg/dL 7-18 Serum or plasma creatinine measurement (mass/volume) 0.75 mg/dL 0.60-1.30 Serum or plasma urea nitrogen/creatinine mass ratio 25 NRG Serum or plasma creatinine measurement w ith calculation of estimated glomerular filtration rate > NRG Serum or plasma glucose measurement (mass/volume) 240 mg/dL 70-105 Serum or plasma calcium measurement (mass/volume) 8.9 mg/dL 8.5-10.1 Serum or plasma phosphate measurement (m ass/volume) - 05/17/16 03:58 Serum or plasma phosphate measurement (mass/volume) 4.1 mg/dL 2.3-4.7 Magnesium - 05/17/16 03:58 Magnesium 2.0 mg/dL 1.8-2.4 Capillary blood glucose measurement by g lucometer (mass/volume) - 05/17/16 04:38 Capillary blood glucose measurement by glucometer (mas s/volume) 205 mg/dL 70-110 Capillary blood glucose measurement by g lucometer (mass/volume) - 05/17/16 05:13 Capillary blood glucose measurement by glucometer (mas s/volume) 172 mg/dL 70-110 Capillary blood glucose measurement by g lucometer (mass/volume) - 05/17/16 06:04 Capillary blood glucose measurement by glucometer (mas s/volume) 145 mg/dL 70-110 Capillary blood glucose measurement by g lucometer (mass/volume) - 05/17/16 06:37 Capillary blood glucose measurement by glucometer (mas s/volume) 126 mg/dL 70-110 Whole blood basic metabolic panel - 07/02 07:47 Serum or plasma sodium measurement (moles/volume) 139 mmol/L 135-145 Serum or plasma potassium measurement (moles/volume) 4.1 mmol/L 3.6-5.0 Serum or plasma chloride measurement (moles/volume) 105 mmol/L 98-107 Carbon dioxide 23 mmol/L 21-32 Serum or plasma anion gap determination (moles/volume) 11 mmol/L 5-14 Serum or plasma urea nitrogen measurement (mass/volume ) 19 mg/dL 7-18 Serum or plasma creatinine measurement (mass/volume) 0.77 mg/dL 0.60-1.30 Serum or plasma urea nitrogen/creatinine mass ratio 25 NRG Serum or plasma creatinine measurement w ith calculation of estimated glomerular filtration rate > NRG Serum or plasma glucose measurement (mass/volume) 237 mg/dL 70-105 Serum or plasma calcium measurement (mass/volume) 8.8 mg/dL 8.5-10.1 Capillary blood glucose measurement by g lucometer (mass/volume) - 05/17/16 10:52 Capillary blood glucose measurement by glucometer (mas s/volume) 343 mg/dL 70-110 Capillary blood glucose measurement by g lucometer (mass/volume) - 05/17/16 15:43 Capillary blood glucose measurement by glucometer (mas s/volume) 203 mg/dL 70-110 Whole blood basic metabolic panel - 07/02 16:08 Serum or plasma sodium measurement (moles/volume) 141 mmol/L 135-145 Serum or plasma potassium measurement (moles/volume) 4.4 mmol/L 3.6-5.0 Serum or plasma chloride measurement (moles/volume) 106 mmol/L 98-107 Carbon dioxide 27 mmol/L 21-32 Serum or plasma anion gap determination (moles/volume) 8 mmol/L 5-14 Serum or plasma urea nitrogen measurement (mass/volume ) 20 mg/dL 7-18 Serum or plasma creatinine measurement (mass/volume) 0.79 mg/dL 0.60-1.30 Serum or plasma urea nitrogen/creatinine mass ratio 25 NRG Serum or plasma creatinine measurement w ith calculation of estimated glomerular filtration rate > NRG Serum or plasma glucose measurement (mass/volume) 238 mg/dL 70-105 Serum or plasma calcium measurement (mass/volume) 8.6 mg/dL 8.5-10.1 Capillary blood glucose measurement by g lucometer (mass/volume) - 05/17/16 21:30 Capillary blood glucose measurement by glucometer (mas s/volume) 118 mg/dL 70-110 Complete blood count (CBC) with automate d white blood cell (WBC) differential - 05/18/16 03:20 Blood leukocytes automated count (number/volume) 7.6 10*3/uL 4.3-11.0 Blood erythrocytes automated count (number/volume) 3.44 10*6/uL 4.35-5.85 Venous blood hemoglobin measurement (mass/volume) 10.0 g/dL 11.5-16.0 Blood hematocrit (volume fraction) 31 % 35-52 Automated erythrocyte mean corpuscular volume 91 [ foz_us] 80-99 Automated erythrocyte mean corpuscular h emoglobin (mass per erythrocyte) 29 pg 25-34 Automated erythrocyte mean corpuscular h emoglobin concentration measurement (mass/volume) 32 g/dL 32-36 Automated erythrocyte distribution width ratio 14. 7 % 10.0- 14.5 Automated blood platelet count (count/volume) 220 10*3/uL [...] 10*3 1.0-4.0 Blood monocytes automated count (number/volume) 0. 7 10*3 0.0-1.0 Automated eosinophil count 0.1 10*3/uL 0 .0-0.3 Automated blood basophil count (count/volume) 0.0 10*3/uL 0.0-0.1 Whole blood basic metabolic panel - 07/30 03:20 Serum or plasma sodium measurement (moles/volume) 139 mmol/L 135-145 Serum or plasma potassium measurement (moles/volume) 4.2 mmol/L 3.6-5.0 Serum or plasma chloride measurement (moles/volume) 108 mmol/L 98-107 Carbon dioxide 20 mmol/L 21-32 Serum or plasma anion gap determination (moles/volume) 11 mmol/L 5-14 Serum or plasma urea nitrogen measurement (mass/volume ) 20 mg/dL 7-18 Serum or plasma creatinine measurement (mass/volume) 0.74 mg/dL 0.60-1.30 Serum or plasma urea nitrogen/creatinine mass ratio 27 NRG Serum or plasma creatinine measurement w ith calculation of estimated glomerular filtration rate > NRG Serum or plasma glucose measurement (mass/volume) 225 mg/dL 70-105 Serum or plasma calcium measurement (mass/volume) 8.2 mg/dL 8.5-10.1 Serum or plasma phosphate measurement (m ass/volume) - 05/18/16 03:20 Serum or plasma phosphate measurement (mass/volume) 3.8 mg/dL 2.3-4.7 Magnesium - 05/18/16 03:20 Magnesium 2.0 mg/dL 1.8-2.4 Capillary blood glucose measurement by g lucometer (mass/volume) - 05/18/16 11:46 Capillary blood glucose measurement by glucometer (mas s/volume) 289 mg/dL 70-110 Serum or plasma glucose measurement (mas s/volume) - 06/08/16 11:24 Serum or plasma glucose measurement (mass/volume) 130 mg/dL 70-105 Hemoglobin A1c - 06/08/16 11:24 Hemoglobin A1c 6.8 % 4.5-6.2 Complete urinalysis with reflex to cultu re - 06/08/16 11:27 Urine color determination YELLOW NRG Urine clarity determination CLEAR NR G Urine pH measurement by test strip 5 5-9 Specific gravity of urine by test strip 1.015 1.016-1.022 Urine protein assay by test strip, semi-quantitative NEGATIVE NEGATIVE Urine glucose detection by automated test strip 2+ NEGATIVE Erythrocytes detection in urine sediment by light micr oscopy 1+ NEGATIVE Urine ketones detection by automated test strip NE GATIVE NEGATIVE Urine nitrite detection by test strip NEGATIVE NEGATIVE Urine total bilirubin detection by test strip NEGA TIVE NEGATIVE Urine urobilinogen measurement by automated test strip (mass/volume) NORMAL NORMAL Urine leukocyte esterase detection by dipstick 1+ NEGATIVE Automated urine sediment erythrocyte cou nt by microscopy (number/high power field) NONE NRG Automated urine sediment leukocyte count by microscopy (number/high power field) [HPF] NRG Bacteria detection in urine sediment by light microsco py TRACE NRG Squamous epithelial cells detection in u rine sediment by light microscopy 0-2 NRG Crystals detection in urine sediment by light microsco py NONE NRG Casts detection in urine sediment by light microscopy NONE NRG Mucus detection in urine sediment by light microscopy NEGATIVE NRG Complete urinalysis with reflex to culture NO NRG Complete blood count (CBC) with automate d white blood cell (WBC) differential - 09/06/16 14:34 Blood leukocytes automated count (number/volume) 11.4 10*3/uL 4.3-11.0 Blood erythrocytes automated count (number/volume) 3.91 10*6/uL 4.35-5.85 Venous blood hemoglobin measurement (mass/volume) 11.2 g/dL 11.5-16.0 Blood hematocrit (volume fraction) 35 % 35-52 Automated erythrocyte mean corpuscular volume 91 [ foz_us] 80-99 Automated erythrocyte mean corpuscular h emoglobin (mass per erythrocyte) 29 pg 25-34 Automated erythrocyte mean corpuscular h emoglobin concentration measurement (mass/volume) 32 g/dL 32-36 Automated erythrocyte distribution width ratio 15. 2 % 10.0- 14.5 Automated blood platelet count (count/volume) 283 10*3/uL [...] 10*3 1.0-4.0 Blood monocytes automated count (number/volume) 1. 0 10*3 0.0-1.0 Automated eosinophil count 0.4 10*3/uL 0 .0-0.3 Automated blood basophil count (count/volume) 0.0 10*3/uL 0.0-0.1 Complete urinalysis with reflex to cultu re - 09/14/16 11:35 Urine color determination YELLOW NRG Urine clarity determination CLEAR NR G Urine pH measurement by test strip 7 5-9 Specific gravity of urine by test strip 1.005 1.016-1.022 Urine protein assay by test strip, semi-quantitative NEGATIVE NEGATIVE Urine glucose detection by automated test strip NE GATIVE NEGATIVE Erythrocytes detection in urine sediment by light micr oscopy NEGATIVE NEGATIVE Urine ketones detection by automated test strip NE GATIVE NEGATIVE Urine nitrite detection by test strip NEGATIVE NEGATIVE Urine total bilirubin detection by test strip NEGA TIVE NEGATIVE Urine urobilinogen measurement by automated test strip (mass/volume) NORMAL NORMAL Urine leukocyte esterase detection by dipstick 1+ NEGATIVE Automated urine sediment erythrocyte cou nt by microscopy (number/high power field) NONE NRG Automated urine sediment leukocyte count by microscopy (number/high power field) [HPF] NRG Bacteria detection in urine sediment by light microsco py FEW NRG Squamous epithelial cells detection in u rine sediment by light microscopy 25-50 NRG Crystals detection in urine sediment by light microsco py NONE NRG Casts detection in urine sediment by light microscopy NONE NRG Mucus detection in urine sediment by light microscopy NEGATIVE NRG Complete urinalysis with reflex to culture NO NRG Serum or plasma glucose measurement (mas s/volume) - 09/14/16 11:39 Serum or plasma glucose measurement (mass/volume) 40 mg/dL 70-105 Hemoglobin A1c - 09/14/16 11:39 Hemoglobin A1c 5.6 % 4.5-6.2 Complete urinalysis with reflex to cultu re - 12/15/16 08:38 Urine color determination YELLOW NRG Urine clarity determination CLEAR NR G Urine pH measurement by test strip 5 5-9 Specific gravity of urine by test strip 1.020 1.016-1.022 Urine protein assay by test strip, semi-quantitative NEGATIVE NEGATIVE Urine glucose detection by automated test strip NE GATIVE NEGATIVE Erythrocytes detection in urine sediment by light micr oscopy 1+ NEGATIVE Urine ketones detection by automated test strip NE GATIVE NEGATIVE Urine nitrite detection by test strip NEGATIVE NEGATIVE Urine total bilirubin detection by test strip NEGA TIVE NEGATIVE Urine urobilinogen measurement by automated test strip (mass/volume) NORMAL NORMAL Urine leukocyte esterase detection by dipstick 1+ NEGATIVE Automated urine sediment erythrocyte cou nt by microscopy (number/high power field) NONE NRG Automated urine sediment leukocyte count by microscopy (number/high power field) NONE NRG Bacteria detection in urine sediment by light microsco py NEGATIVE NRG Squamous epithelial cells detection in u rine sediment by light microscopy RARE NRG Crystals detection in urine sediment by light microsco py NONE NRG Casts detection in urine sediment by light microscopy NONE NRG Mucus detection in urine sediment by light microscopy NEGATIVE NRG Complete urinalysis with reflex to culture NO NRG Urine microalbumin measurement by test s trip (mass/volume) - 12/15/16 08:38 Urine creatinine measurement (mass/volume) 115 % NRG Microalbumin [mass/volume] in urine 5.5 % 0.0-20.0 Microalbumin/creatinine [ratio] in urine 4.8 mg/g{ Cre} 0.0- 30.0 Comprehensive metabolic panel - 12/15/16 08:40 Serum or plasma sodium measurement (moles/volume) 140 mmol/L 135-145 Serum or plasma potassium measurement (moles/volume) 4.5 mmol/L 3.6-5.0 Serum or plasma chloride measurement (moles/volume) 105 mmol/L 98-107 Carbon dioxide 25 mmol/L 21-32 Serum or plasma anion gap determination (moles/volume) 10 mmol/L 5-14 Serum or plasma urea nitrogen measurement (mass/volume ) 18 mg/dL 7-18 Serum or plasma creatinine measurement (mass/volume) 0.74 mg/dL 0.60-1.30 Serum or plasma urea nitrogen/creatinine mass ratio 24 NRG Serum or plasma creatinine measurement w ith calculation of estimated glomerular filtration rate > NRG Serum or plasma glucose measurement (mass/volume) 155 mg/dL 70-105 Serum or plasma calcium measurement (mass/volume) 9.9 mg/dL 8.5-10.1 Serum or plasma total bilirubin measurement (mass/volu me) 0.6 mg/dL 0.1-1.0 Serum or plasma alkaline phosphatase kaycee surement (enzymatic activity/volume) 94 U/L 40-136 Serum or plasma aspartate aminotransfera se measurement (enzymatic activity/volume) 22 U/L 5-34 Serum or plasma alanine aminotransferase measurement (enzymatic activity/volume) 23 U/L 0-55 Serum or plasma protein measurement (mass/volume) 7.8 g/dL 6.4-8.2 Serum or plasma albumin measurement (mass/volume) 4.1 g/dL 3.2-4.5 Lipid 1996 panel - 12/15/16 08:40 Serum or plasma triglyceride measurement (mass/volume) 71 mg/dL <150 Serum or plasma cholesterol measurement (mass/volume) 153 mg/dL < 200 Serum or plasma cholesterol in HDL measurement (mass/v olume) 66 mg/dL 40-60 Cholesterol in LDL [mass/volume] in serum or plasma by direct assay 69 mg/dL 1-129 Serum or plasma cholesterol in VLDL measurement (mass/ volume) 14 mg/dL 5-40 Hemoglobin A1c - 12/15/16 08:40 Hemoglobin A1c 6.6 % 4.5-6.2 THYROID STIMULATING HORMONE - 12/15/16 0 8:40 THYROID STIMULATING HORMONE 0.74 u[iU]/mL 0.35-4.94 Complete urinalysis with reflex to cultu re - 03/24/17 11:46 Urine color determination YELLOW NRG Urine clarity determination CLEAR NR G Urine pH measurement by test strip 7 5-9 Specific gravity of urine by test strip 1.010 1.016-1.022 Urine protein assay by test strip, semi-quantitative NEGATIVE NEGATIVE Urine glucose detection by automated test strip NE GATIVE NEGATIVE Erythrocytes detection in urine sediment by light micr oscopy 2+ NEGATIVE Urine ketones detection by automated test strip NE GATIVE NEGATIVE Urine nitrite detection by test strip NEGATIVE NEGATIVE Urine total bilirubin detection by test strip NEGA TIVE NEGATIVE Urine urobilinogen measurement by automated test strip (mass/volume) NORMAL NORMAL Urine leukocyte esterase detection by dipstick NEG ATIVE NEGATIVE Automated urine sediment erythrocyte cou nt by microscopy (number/high power field) [HPF] NRG Automated urine sediment leukocyte count by microscopy (number/high power field) NONE NRG Bacteria detection in urine sediment by light microsco py NEGATIVE NRG Squamous epithelial cells detection in u rine sediment by light microscopy 0-2 NRG Crystals detection in urine sediment by light microsco py NONE NRG Casts detection in urine sediment by light microscopy NONE NRG Mucus detection in urine sediment by light microscopy NEGATIVE NRG Complete urinalysis with reflex to culture NO NRG Serum or plasma glucose measurement (mas s/volume) - 03/24/17 11:58 Serum or plasma glucose measurement (mass/volume) 82 mg/dL 70-105 Hemoglobin A1c - 03/24/17 11:58 Hemoglobin A1c 6.4 % 4.5-6.2 Serum or plasma glucose measurement (mas s/volume) - 06/20/17 15:05 Serum or plasma glucose measurement (mass/volume) 126 mg/dL 70-105 Hemoglobin A1c - 06/20/17 15:05 Blood hemoglobin A1C measurement (mass/volume) 7.3 % 4.0-5.6 MEAN BLOOD GLUCOSE 163 % <=126 Complete urinalysis with reflex to cultu re - 06/20/17 15:11 Urine color determination YELLOW NRG Urine clarity determination CLEAR NR G Urine pH measurement by test strip 6 5-9 Specific gravity of urine by test strip 1.020 1.016-1.022 Urine protein assay by test strip, semi-quantitative 1+ NEGATIVE Urine glucose detection by automated test strip NE GATIVE NEGATIVE Erythrocytes detection in urine sediment by light micr oscopy 1+ NEGATIVE Urine ketones detection by automated test strip NE GATIVE NEGATIVE Urine nitrite detection by test strip NEGATIVE NEGATIVE Urine total bilirubin detection by test strip NEGA TIVE NEGATIVE Urine urobilinogen measurement by automated test strip (mass/volume) NORMAL NORMAL Urine leukocyte esterase detection by dipstick NEG ATIVE NEGATIVE Automated urine sediment erythrocyte cou nt by microscopy (number/high power field) RARE NRG Automated urine sediment leukocyte count by microscopy (number/high power field) RARE NRG Bacteria detection in urine sediment by light microsco py TRACE NRG Squamous epithelial cells detection in u rine sediment by light microscopy 10-25 NRG Crystals detection in urine sediment by light microsco py NONE NRG Casts detection in urine sediment by light microscopy NONE NRG Mucus detection in urine sediment by light microscopy NEGATIVE NRG Complete urinalysis with reflex to culture NO NRG Methicillin resistant Staphylococcus aur eus (MRSA) screening culture - 08/01/17 14:10 Methicillin resistant Staphylococcus aureus (MRSA) scr eening culture NEG NRG Capillary blood glucose measurement by g lucometer (mass/volume) - 08/03/17 07:17 Capillary blood glucose measurement by glucometer (mas s/volume) 329 mg/dL 70-110 Capillary blood glucose measurement by g lucometer (mass/volume) - 08/03/17 08:01 Capillary blood glucose measurement by glucometer (mas s/volume) 303 mg/dL 70-110 Capillary blood glucose measurement by g lucometer (mass/volume) - 08/03/17 09:23 Capillary blood glucose measurement by glucometer (mas s/volume) 134 mg/dL 70-110 Capillary blood glucose measurement by g lucometer (mass/volume) - 08/03/17 10:48 Capillary blood glucose measurement by glucometer (mas s/volume) 187 mg/dL 70-110 Capillary blood glucose measurement by g lucometer (mass/volume) - 08/03/17 11:45 Capillary blood glucose measurement by glucometer (mas s/volume) 223 mg/dL 70-110 Methicillin resistant Staphylococcus aur eus (MRSA) screening culture - 09/22/17 11:30 Methicillin resistant Staphylococcus aureus (MRSA) scr eening culture NEG NRG Complete blood count (CBC) with automate d white blood cell (WBC) differential - 09/27/17 09:47 Blood leukocytes automated count (number/volume) 12.5 10*3/uL 4.3-11.0 Blood erythrocytes automated count (number/volume) 4.02 10*6/uL 4.35-5.85 Venous blood hemoglobin measurement (mass/volume) 11.6 g/dL 11.5-16.0 Blood hematocrit (volume fraction) 35 % 35-52 Automated erythrocyte mean corpuscular volume 88 [ foz_us] 80-99 Automated erythrocyte mean corpuscular h emoglobin (mass per erythrocyte) 29 pg 25-34 Automated erythrocyte mean corpuscular h emoglobin concentration measurement (mass/volume) 33 g/dL 32-36 Automated erythrocyte distribution width ratio 14. 6 % 10.0- 14.5 Automated blood platelet count (count/volume) 459 10*3/uL [...] 10*3 1.0-4.0 Blood monocytes automated count (number/volume) 0. 7 10*3 0.0-1.0 Automated eosinophil count 0.0 10*3/uL 0 .0-0.3 Automated blood basophil count (count/volume) 0.0 10*3/uL 0.0-0.1 Blood manual differential performed dete ction - 09/27/17 09:47 Blood monocytes/100 leukocytes 4 % NRG Manual blood segmented neutrophils/100 leukocytes 87 % NRG Blood band neutrophils/100 leukocytes 0 % NRG Manual blood lymphocytes/100 leukocytes 9 % NRG Manual eosinophils/100 leukocytes in nose 0 % NRG Manual blood basophils/100 leukocytes 0 % NRG Blood erythrocyte morphology finding identification NORMAL NRG Comprehensive metabolic panel - 09/27/17 09:47 Serum or plasma sodium measurement (moles/volume) 139 mmol/L 135-145 Serum or plasma potassium measurement (moles/volume) 4.5 mmol/L 3.6-5.0 Serum or plasma chloride measurement (moles/volume) 103 mmol/L 98-107 Carbon dioxide 20 mmol/L 21-32 Serum or plasma anion gap determination (moles/volume) 16 mmol/L 5-14 Serum or plasma urea nitrogen measurement (mass/volume ) 18 mg/dL 7-18 Serum or plasma creatinine measurement (mass/volume) 0.85 mg/dL 0.60-1.30 Serum or plasma urea nitrogen/creatinine mass ratio 21 NRG Serum or plasma creatinine measurement w ith calculation of estimated glomerular filtration rate > NRG Serum or plasma glucose measurement (mass/volume) 272 mg/dL 70-105 Serum or plasma calcium measurement (mass/volume) 10.2 mg/dL 8.5-10.1 Serum or plasma total bilirubin measurement (mass/volu me) 0.6 mg/dL 0.1-1.0 Serum or plasma alkaline phosphatase kaycee surement (enzymatic activity/volume) 96 U/L 40-136 Serum or plasma aspartate aminotransfera se measurement (enzymatic activity/volume) 16 U/L 5-34 Serum or plasma alanine aminotransferase measurement (enzymatic activity/volume) 13 U/L 0-55 Serum or plasma protein measurement (mass/volume) 7.8 g/dL 6.4-8.2 Serum or plasma albumin measurement (mass/volume) 4.0 g/dL 3.2-4.5 Magnesium - 09/27/17 09:47 Magnesium 1.8 mg/dL 1.8-2.4 THYROID STIMULATING HORMONE - 09/27/17 0 9:47 THYROID STIMULATING HORMONE 0.44 u[iU]/mL 0.35-4.94 Serum or plasma thyroxine (T4) free rashida urement (mass/volume) - 09/27/17 09:47 Serum or plasma thyroxine (T4) free measurement (mass/ volume) 1.23 ng/dL 0.70-1.48 Capillary blood glucose measurement by g lucometer (mass/volume) - 09/27/17 10:09 Capillary blood glucose measurement by glucometer (mas s/volume) 237 mg/dL 70-110 Capillary blood glucose measurement by g lucometer (mass/volume) - 09/27/17 13:30 Capillary blood glucose measurement by glucometer (mas s/volume) 224 mg/dL 70-110 Complete urinalysis with reflex to cultu re - 09/27/17 14:00 Urine color determination YELLOW NRG Urine clarity determination CLEAR NR G Urine pH measurement by test strip 5 5-9 Specific gravity of urine by test strip 1.025 1.016-1.022 Urine protein assay by test strip, semi-quantitative 2+ NEGATIVE Urine glucose detection by automated test strip 3+ NEGATIVE Erythrocytes detection in urine sediment by light micr oscopy 2+ NEGATIVE Urine ketones detection by automated test strip 4+ NEGATIVE Urine nitrite detection by test strip NEGATIVE NEGATIVE Urine total bilirubin detection by test strip 1+ NEGATIVE Urine urobilinogen measurement by automated test strip (mass/volume) 1 mg/dL NORMAL Urine leukocyte esterase detection by dipstick 1+ NEGATIVE Automated urine sediment erythrocyte cou nt by microscopy (number/high power field) [HPF] NRG Automated urine sediment leukocyte count by microscopy (number/high power field) [HPF] NRG Bacteria detection in urine sediment by light microsco py NEGATIVE NRG Squamous epithelial cells detection in u rine sediment by light microscopy 10-25 NRG Crystals detection in urine sediment by light microsco py NONE NRG Casts detection in urine sediment by light microscopy PRESENT NRG Mucus detection in urine sediment by light microscopy SMALL NRG Complete urinalysis with reflex to culture NO NRG Hyaline casts detection in urine sediment by light chantel roscopy 2-5 NRG Capillary blood glucose measurement by g lucometer (mass/volume) - 10/12/17 06:22 Capillary blood glucose measurement by glucometer (mas s/volume) 276 mg/dL 70-110 Comprehensive metabolic panel - 01/17/18 08:45 Serum or plasma sodium measurement (moles/volume) 137 mmol/L 135-145 Serum or plasma potassium measurement (moles/volume) 4.8 mmol/L 3.6-5.0 Serum or plasma chloride measurement (moles/volume) 103 mmol/L 98-107 Carbon dioxide 22 mmol/L 21-32 Serum or plasma anion gap determination (moles/volume) 12 mmol/L 5-14 Serum or plasma urea nitrogen measurement (mass/volume ) 20 mg/dL 7-18 Serum or plasma creatinine measurement (mass/volume) 0.69 mg/dL 0.60-1.30 Serum or plasma urea nitrogen/creatinine mass ratio 29 NRG Serum or plasma creatinine measurement w ith calculation of estimated glomerular filtration rate > NRG Serum or plasma glucose measurement (mass/volume) 199 mg/dL 70-105 Serum or plasma calcium measurement (mass/volume) 10.2 mg/dL 8.5-10.1 Serum or plasma total bilirubin measurement (mass/volu me) 0.7 mg/dL 0.1-1.0 Serum or plasma alkaline phosphatase kaycee surement (enzymatic activity/volume) 98 U/L 40-136 Serum or plasma aspartate aminotransfera se measurement (enzymatic activity/volume) 18 U/L 5-34 Serum or plasma alanine aminotransferase measurement (enzymatic activity/volume) 14 U/L 0-55 Serum or plasma protein measurement (mass/volume) 7.6 g/dL 6.4-8.2 Serum or plasma albumin measurement (mass/volume) 4.1 g/dL 3.2-4.5 CALCIUM CORRECTED 10.1 mg/dL 8.5-10.1 Lipid 1996 panel - 01/17/18 08:45 Serum or plasma triglyceride measurement (mass/volume) 90 mg/dL <150 Serum or plasma cholesterol measurement (mass/volume) 153 mg/dL < 200 Serum or plasma cholesterol in HDL measurement (mass/v olume) 61 mg/dL 40-60 Cholesterol in LDL [mass/volume] in serum or plasma by direct assay 72 mg/dL 1-129 Serum or plasma cholesterol in VLDL measurement (mass/ volume) 18 mg/dL 5-40 THYROID STIMULATING HORMONE - 01/17/18 0 8:45 THYROID STIMULATING HORMONE 0.64 u[iU]/mL 0.35-4.94 Hemoglobin A1c - 01/17/18 08:45 Blood hemoglobin A1C measurement (mass/volume) 6.6 % 4.0-5.6 MEAN BLOOD GLUCOSE 143 % <=126 Urine microalbumin measurement by test s trip (mass/volume) - 01/17/18 08:50 Urine creatinine measurement (mass/volume) 108 % NRG Microalbumin [mass/volume] in urine 6.8 % 0.0-20.0 Microalbumin/creatinine [ratio] in urine 6.3 mg/g{ Cre} 0.0- 30.0 Hemoglobin A1c - 04/04/18 15:15 Blood hemoglobin A1C measurement (mass/volume) 6.6 % 4.0-5.6 MEAN BLOOD GLUCOSE 143 % <=126 Comprehensive metabolic panel - 07/11/18 08:45 Serum or plasma sodium measurement (moles/volume) 140 mmol/L 135-145 Serum or plasma potassium measurement (moles/volume) 4.8 mmol/L 3.6-5.0 Serum or plasma chloride measurement (moles/volume) 104 mmol/L 98-107 Carbon dioxide 27 mmol/L 21-32 Serum or plasma anion gap determination (moles/volume) 9 mmol/L 5-14 Serum or plasma urea nitrogen measurement (mass/volume ) 16 mg/dL 7-18 Serum or plasma creatinine measurement (mass/volume) 0.71 mg/dL 0.60-1.30 Serum or plasma urea nitrogen/creatinine mass ratio 23 NRG Serum or plasma creatinine measurement w ith calculation of estimated glomerular filtration rate > NRG Serum or plasma glucose measurement (mass/volume) 152 mg/dL 70-105 Serum or plasma calcium measurement (mass/volume) 10.4 mg/dL 8.5-10.1 Serum or plasma total bilirubin measurement (mass/volu me) 0.6 mg/dL 0.1-1.0 Serum or plasma alkaline phosphatase kaycee surement (enzymatic activity/volume) 114 U/L 40-136 Serum or plasma aspartate aminotransfera se measurement (enzymatic activity/volume) 20 U/L 5-34 Serum or plasma alanine aminotransferase measurement (enzymatic activity/volume) 16 U/L 0-55 Serum or plasma protein measurement (mass/volume) 7.8 g/dL 6.4-8.2 Serum or plasma albumin measurement (mass/volume) 4.0 g/dL 3.2-4.5 CALCIUM CORRECTED 10.4 mg/dL 8.5-10.1 Lipid 1996 panel - 07/11/18 08:45 Serum or plasma triglyceride measurement (mass/volume) 67 mg/dL <150 Serum or plasma cholesterol measurement (mass/volume) 138 mg/dL < 200 Serum or plasma cholesterol in HDL measurement (mass/v olume) 58 mg/dL 40-60 Cholesterol in LDL [mass/volume] in serum or plasma by direct assay 60 mg/dL 1-129 Serum or plasma cholesterol in VLDL measurement (mass/ volume) 13 mg/dL 5-40 THYROID STIMULATING HORMONE - 07/11/18 0 8:45 THYROID STIMULATING HORMONE 1.29 u[iU]/mL 0.35-4.94 Hemoglobin A1c - 07/11/18 08:45 Blood hemoglobin A1C measurement (mass/volume) 7.5 % 4.0-5.6 MEAN BLOOD GLUCOSE 169 % <=126 Urine microalbumin measurement by test s trip (mass/volume) - 07/11/18 08:56 Urine creatinine measurement (mass/volume) 63 % NRG Microalbumin [mass/volume] in urine 14.2 % 0.0-20.0 Microalbumin/creatinine [ratio] in urine 22.5 mg/g {Cre} 0.0- 30.0 Methicillin resistant Staphylococcus aur eus (MRSA) screening culture - 08/16/18 12:00 Methicillin resistant Staphylococcus aureus (MRSA) scr eening culture NEG NRG Complete blood count (CBC) with automate d white blood cell (WBC) differential - 08/16/18 12:05 Blood leukocytes automated count (number/volume) 6.5 10*3/uL 4.3-11.0 Blood erythrocytes automated count (number/volume) 3.67 10*6/uL 4.35-5.85 Venous blood hemoglobin measurement (mass/volume) 10.2 g/dL 11.5-16.0 Blood hematocrit (volume fraction) 32 % 35-52 Automated erythrocyte mean corpuscular volume 88 [ [facility]] 80-99 Automated erythrocyte mean corpuscular h emoglobin (mass per erythrocyte) 28 pg 25-34 Automated erythrocyte mean corpuscular h emoglobin concentration measurement (mass/volume) 32 g/dL 32-36 Automated erythrocyte distribution width ratio 15. 5 % 10.0- 14.5 Automated blood platelet count (count/volume) 285 10*3/uL 130-400 Automated blood platelet mean volume measurement 11.1 [foz_us] 7.4-10.4 Automated blood neutrophils/100 leukocytes 70 % 42-75 Automated blood lymphocytes/100 leukocytes 18 % 12-44 Blood monocytes/100 leukocytes 10 % 0-12 Automated blood eosinophils/100 leukocytes 3 % 0-10 Automated blood basophils/100 leukocytes 0 % 0-10 Blood neutrophils automated count (number/volume) 4.5 10*3 1.8-7.8 Blood lymphocytes automated count (number/volume) 1.1 10*3 1.0-4.0 Blood monocytes automated count (number/volume) 0. 6 10*3 0.0-1.0 Automated eosinophil count 0.2 10*3/uL 0 .0-0.3 Automated blood basophil count (count/volume) 0.0 10*3/uL 0.0-0.1 PT panel in platelet poor plasma by coag ulation assay - 08/16/18 12:05 Prothrombin time (PT) in platelet poor plasma by coagu lation assay 16.5 s 12.2-14.7 INR in platelet poor plasma or blood by coagulation as say 1.3 0.8-1.4 Comprehensive metabolic panel - 08/16/18 12:05 Serum or plasma sodium measurement (moles/volume) 140 mmol/L 135-145 Serum or plasma potassium measurement (moles/volume) 4.4 mmol/L 3.6-5.0 Serum or plasma chloride measurement (moles/volume) 105 mmol/L 98-107 Carbon dioxide 28 mmol/L 21-32 Serum or plasma anion gap determination (moles/volume) 7 mmol/L 5-14 Serum or plasma urea nitrogen measurement (mass/volume ) 16 mg/dL 7-18 Serum or plasma creatinine measurement (mass/volume) 0.65 mg/dL 0.60-1.30 Serum or plasma urea nitrogen/creatinine mass ratio 25 NRG Serum or plasma creatinine measurement w ith calculation of estimated glomerular filtration rate > NRG Serum or plasma glucose measurement (mass/volume) 91 mg/dL 70-105 Serum or plasma calcium measurement (mass/volume) 9.4 mg/dL 8.5-10.1 Serum or plasma total bilirubin measurement (mass/volu me) 0.5 mg/dL 0.1-1.0 Serum or plasma alkaline phosphatase kaycee surement (enzymatic activity/volume) 116 U/L 40-136 Serum or plasma aspartate aminotransfera se measurement (enzymatic activity/volume) 17 U/L 5-34 Serum or plasma alanine aminotransferase measurement (enzymatic activity/volume) 13 U/L 0-55 Serum or plasma protein measurement (mass/volume) 7.3 g/dL 6.4-8.2 Serum or plasma albumin measurement (mass/volume) 3.7 g/dL 3.2-4.5 CALCIUM CORRECTED 9.6 mg/dL 8.5-10.1 Erythrocyte sedimentation rate by cy gren method - 08/16/18 12:05 Erythrocyte sedimentation rate by westergren method 78 mm 0- 30 Blood type T Indirect antibody screen pa ender - 08/16/18 12:05 ABO+Rh group OP NRG Blood group antibody screen NEGATIVE NR G Complete urinalysis with reflex to cultu re - 08/16/18 12:10 Urine color determination YELLOW NRG Urine clarity determination CLEAR NR G Urine pH measurement by test strip 7 5-9 Specific gravity of urine by test strip 1.005 1.016-1.022 Urine protein assay by test strip, semi-quantitative NEGATIVE NEGATIVE Urine glucose detection by automated test strip NE GATIVE NEGATIVE Erythrocytes detection in urine sediment by light micr oscopy 1+ NEGATIVE Urine ketones detection by automated test strip NE GATIVE NEGATIVE Urine nitrite detection by test strip NEGATIVE NEGATIVE Urine total bilirubin detection by test strip NEGA TIVE NEGATIVE Urine urobilinogen measurement by automated test strip (mass/volume) NORMAL NORMAL Urine leukocyte esterase detection by dipstick 1+ NEGATIVE Automated urine sediment erythrocyte cou nt by microscopy (number/high power field) [HPF] NRG Automated urine sediment leukocyte count by microscopy (number/high power field) [HPF] NRG Bacteria detection in urine sediment by light microsco py FEW NRG Squamous epithelial cells detection in u rine sediment by light microscopy 5-10 NRG Crystals detection in urine sediment by light microsco py NONE NRG Casts detection in urine sediment by light microscopy NONE NRG Mucus detection in urine sediment by light microscopy NEGATIVE NRG Complete urinalysis with reflex to culture YES NRG Bacterial urine culture - 08/16/18 12:10 Bacterial urine culture [id number] NRG COLONY COUNT >100,000/ML NRG FTX;REPORTABLE SUSCEPTIBILITY REPORTED 4-6-19, 130 5. NRG RML Sensitivity Panel - 08/16/18 12:10 Gentamicin susceptibility test by minimum inhibitory c oncentration <= NRG Trimethoprim/sulfamethoxazole susceptibi lity test by minimum inhibitoryconcentration <= NRG Levofloxacin susceptibility test by minimum inhibitory concentration <= NRG Ampicillin susceptibility test by minimum inhibitory c oncentration <= NRG Cefazolin susceptibility test by minimum inhibitory co ncentration <= NRG Ceftriaxone susceptibility test by minimum inhibitory concentration <= NRG Ciprofloxacin susceptibility test by minimum inhibitor y concentration <= NRG Meropenem susceptibility test by minimum inhibitory co ncentration <= NRG Nitrofurantoin susceptibility test by mi nimum inhibitory concentration <= NRG Amoxicillin and clavulanate potassium susc CHANTEL <= NRG Blood type T Indirect antibody screen pa ender - 08/23/18 06:20 ABO+Rh group OP NRG Transfusion band number [id number] NRG Blood group antibody screen NEGATIVE NR G Capillary blood glucose measurement by g lucometer (mass/volume) - 08/23/18 06:35 Capillary blood glucose measurement by glucometer (mas s/volume) 302 mg/dL 70-110 Capillary blood glucose measurement by g lucometer (mass/volume) - 08/23/18 07:56 Capillary blood glucose measurement by glucometer (mas s/volume) 255 mg/dL 70-110 Capillary blood glucose measurement by g lucometer (mass/volume) - 08/23/18 10:15 Capillary blood glucose measurement by glucometer (mas s/volume) 184 mg/dL 70-110 Capillary blood glucose measurement by g lucometer (mass/volume) - 08/23/18 12:25 Capillary blood glucose measurement by glucometer (mas s/volume) 299 mg/dL 70-110 Capillary blood glucose measurement by g lucometer (mass/volume) - 08/23/18 13:51 Capillary blood glucose measurement by glucometer (mas s/volume) 366 mg/dL 70-110 Capillary blood glucose measurement by g lucometer (mass/volume) - 08/23/18 14:12 Capillary blood glucose measurement by glucometer (mas s/volume) 358 mg/dL 70-110 Capillary blood glucose measurement by g lucometer (mass/volume) - 08/23/18 15:26 Capillary blood glucose measurement by glucometer (mas s/volume) 348 mg/dL 70-110 Capillary blood glucose measurement by g lucometer (mass/volume) - 08/23/18 17:22 Capillary blood glucose measurement by glucometer (mas s/volume) 237 mg/dL 70-110 Capillary blood glucose measurement by g lucometer (mass/volume) - 08/23/18 18:51 Capillary blood glucose measurement by glucometer (mas s/volume) 200 mg/dL 70-110 Capillary blood glucose measurement by g lucometer (mass/volume) - 08/23/18 21:01 Capillary blood glucose measurement by glucometer (mas s/volume) 209 mg/dL 70-110 Complete blood count (CBC) with automate d white blood cell (WBC) differential - 08/24/18 05:30 Blood leukocytes automated count (number/volume) 10.2 10*3/uL 4.3-11.0 Blood erythrocytes automated count (number/volume) 3.35 10*6/uL 4.35-5.85 Venous blood hemoglobin measurement (mass/volume) 9.2 g/dL 11.5-16.0 Blood hematocrit (volume fraction) 29 % 35-52 Automated erythrocyte mean corpuscular volume 88 [ foz_us] 80-99 Automated erythrocyte mean corpuscular h emoglobin (mass per erythrocyte) 27 pg 25-34 Automated erythrocyte mean corpuscular h emoglobin concentration measurement (mass/volume) 31 g/dL 32-36 Automated erythrocyte distribution width ratio 15. 5 % 10.0- 14.5 Automated blood platelet count (count/volume) 250 10*3/uL 130-400 Automated blood platelet mean volume measurement 11.0 [foz_us] 7.4-10.4 Automated blood neutrophils/100 leukocytes 74 % 42-75 Automated blood lymphocytes/100 leukocytes 12 % 12-44 Blood monocytes/100 leukocytes 14 % 0-12 Automated blood eosinophils/100 leukocytes 0 % 0-10 Automated blood basophils/100 leukocytes 0 % 0-10 Blood neutrophils automated count (number/volume) 7.6 10*3 1.8-7.8 Blood lymphocytes automated count (number/volume) 1.2 10*3 1.0-4.0 Blood monocytes automated count (number/volume) 1. 4 10*3 0.0-1.0 Automated eosinophil count 0.0 10*3/uL 0 .0-0.3 Automated blood basophil count (count/volume) 0.0 10*3/uL 0.0-0.1 Comprehensive metabolic panel - 08/24/18 05:30 Serum or plasma sodium measurement (moles/volume) 137 mmol/L 135-145 Serum or plasma potassium measurement (moles/volume) 5.0 mmol/L 3.6-5.0 Serum or plasma chloride measurement (moles/volume) 105 mmol/L 98-107 Carbon dioxide 21 mmol/L 21-32 Serum or plasma anion gap determination (moles/volume) 11 mmol/L 5-14 Serum or plasma urea nitrogen measurement (mass/volume ) 24 mg/dL 7-18 Serum or plasma creatinine measurement (mass/volume) 0.88 mg/dL 0.60-1.30 Serum or plasma urea nitrogen/creatinine mass ratio 27 NRG Serum or plasma creatinine measurement w ith calculation of estimated glomerular filtration rate > NRG Serum or plasma glucose measurement (mass/volume) 296 mg/dL 70-105 Serum or plasma calcium measurement (mass/volume) 9.0 mg/dL 8.5-10.1 Serum or plasma total bilirubin measurement (mass/volu me) 1.0 mg/dL 0.1-1.0 Serum or plasma alkaline phosphatase kaycee surement (enzymatic activity/volume) 89 U/L 40-136 Serum or plasma aspartate aminotransfera se measurement (enzymatic activity/volume) 18 U/L 5-34 Serum or plasma alanine aminotransferase measurement (enzymatic activity/volume) 15 U/L 0-55 Serum or plasma protein measurement (mass/volume) 6.6 g/dL 6.4-8.2 Serum or plasma albumin measurement (mass/volume) 3.4 g/dL 3.2-4.5 CALCIUM CORRECTED 9.5 mg/dL 8.5-10.1 Capillary blood glucose measurement by g lucometer (mass/volume) - 08/24/18 06:04 Capillary blood glucose measurement by glucometer (mas s/volume) 313 mg/dL 70-110 Capillary blood glucose measurement by g lucometer (mass/volume) - 08/24/18 09:38 Capillary blood glucose measurement by glucometer (mas s/volume) 378 mg/dL 70-110 Capillary blood glucose measurement by g lucometer (mass/volume) - 08/24/18 11:12 Capillary blood glucose measurement by glucometer (mas s/volume) 385 mg/dL 70-110 Capillary blood glucose measurement by g lucometer (mass/volume) - 08/24/18 16:23 Capillary blood glucose measurement by glucometer (mas s/volume) 385 mg/dL 70-110 Capillary blood glucose measurement by g lucometer (mass/volume) - 08/24/18 20:02 Capillary blood glucose measurement by glucometer (mas s/volume) 391 mg/dL 70-110 Capillary blood glucose measurement by g lucometer (mass/volume) - 08/25/18 05:20 Capillary blood glucose measurement by glucometer (mas s/volume) 221 mg/dL 70-110 Complete blood count (CBC) with automate d white blood cell (WBC) differential - 08/25/18 05:50 Blood leukocytes automated count (number/volume) 10.6 10*3/uL 4.3-11.0 Blood erythrocytes automated count (number/volume) 3.11 10*6/uL 4.35-5.85 Venous blood hemoglobin measurement (mass/volume) 8.6 g/dL 11.5-16.0 Blood hematocrit (volume fraction) 27 % 35-52 Automated erythrocyte mean corpuscular volume 88 [ foz_us] 80-99 Automated erythrocyte mean corpuscular h emoglobin (mass per erythrocyte) 28 pg 25-34 Automated erythrocyte mean corpuscular h emoglobin concentration measurement (mass/volume) 32 g/dL 32-36 Automated erythrocyte distribution width ratio 15. 4 % 10.0- 14.5 Automated blood platelet count (count/volume) 236 10*3/uL 130-400 Automated blood platelet mean volume measurement 10.6 [foz_us] 7.4-10.4 Automated blood neutrophils/100 leukocytes 75 % 42-75 Automated blood lymphocytes/100 leukocytes 12 % 12-44 Blood monocytes/100 leukocytes 11 % 0-12 Automated blood eosinophils/100 leukocytes 2 % 0-10 Automated blood basophils/100 leukocytes 0 % 0-10 Blood neutrophils automated count (number/volume) 8.0 10*3 1.8-7.8 Blood lymphocytes automated count (number/volume) 1.3 10*3 1.0-4.0 Blood monocytes automated count (number/volume) 1. 1 10*3 0.0-1.0 Automated eosinophil count 0.2 10*3/uL 0 .0-0.3 Automated blood basophil count (count/volume) 0.0 10*3/uL 0.0-0.1 Comprehensive metabolic panel - 08/25/18 05:50 Serum or plasma sodium measurement (moles/volume) 138 mmol/L 135-145 Serum or plasma potassium measurement (moles/volume) 4.5 mmol/L 3.6-5.0 Serum or plasma chloride measurement (moles/volume) 107 mmol/L 98-107 Carbon dioxide 19 mmol/L 21-32 Serum or plasma anion gap determination (moles/volume) 12 mmol/L 5-14 Serum or plasma urea nitrogen measurement (mass/volume ) 14 mg/dL 7-18 Serum or plasma creatinine measurement (mass/volume) 0.71 mg/dL 0.60-1.30 Serum or plasma urea nitrogen/creatinine mass ratio 20 NRG Serum or plasma creatinine measurement w ith calculation of estimated glomerular filtration rate > NRG Serum or plasma glucose measurement (mass/volume) 252 mg/dL 70-105 Serum or plasma calcium measurement (mass/volume) 8.7 mg/dL 8.5-10.1 Serum or plasma total bilirubin measurement (mass/volu me) 0.6 mg/dL 0.1-1.0 Serum or plasma alkaline phosphatase kaycee surement (enzymatic activity/volume) 98 U/L 40-136 Serum or plasma aspartate aminotransfera se measurement (enzymatic activity/volume) 20 U/L 5-34 Serum or plasma alanine aminotransferase measurement (enzymatic activity/volume) 21 U/L 0-55 Serum or plasma protein measurement (mass/volume) 6.4 g/dL 6.4-8.2 Serum or plasma albumin measurement (mass/volume) 3.3 g/dL 3.2-4.5 CALCIUM CORRECTED 9.3 mg/dL 8.5-10.1 Hemoglobin A1c - 10/23/18 14:38 Blood hemoglobin A1C measurement (mass/volume) 6.7 % 4.0-5.6 MEAN BLOOD GLUCOSE 146 % <=126 Whole blood basic metabolic panel - 01/14 12/01 11:55 Serum or plasma sodium measurement (moles/volume) 141 mmol/L 135-145 Serum or plasma potassium measurement (moles/volume) 4.4 mmol/L 3.6-5.0 Serum or plasma chloride measurement (moles/volume) 105 mmol/L 98-107 Carbon dioxide 26 mmol/L 21-32 Serum or plasma anion gap determination (moles/volume) 10 mmol/L 5-14 Serum or plasma urea nitrogen measurement (mass/volume ) 13 mg/dL 7-18 Serum or plasma creatinine measurement (mass/volume) 0.74 mg/dL 0.60-1.30 Serum or plasma urea nitrogen/creatinine mass ratio 18 NRG Serum or plasma creatinine measurement w ith calculation of estimated glomerular filtration rate > NRG Serum or plasma glucose measurement (mass/volume) 185 mg/dL 70-105 Serum or plasma calcium measurement (mass/volume) 9.5 mg/dL 8.5-10.1 Hemoglobin A1c measurement - 01/30/19 11 :55 Blood hemoglobin A1C measurement (mass/volume) 6.3 % 4.0-5.6 MEAN BLOOD GLUCOSE 134 % <=126 Lipid 1996 panel - 05/17/19 09:14 Serum or plasma triglyceride measurement (mass/volume) 62 mg/dL <150 Serum or plasma cholesterol measurement (mass/volume) 147 mg/dL < 200 Serum or plasma cholesterol in HDL measurement (mass/v olume) 68 mg/dL 40-60 Cholesterol in LDL [mass/volume] in serum or plasma by direct assay 62 mg/dL 1-129 Serum or plasma cholesterol in VLDL measurement (mass/ volume) 12 mg/dL 5-40 THYROID STIMULATING HORMONE - 05/17/19 0 9:14 THYROID STIMULATING HORMONE 0.87 u[iU]/mL 0.35-4.94 Hemoglobin A1c measurement - 05/17/19 09 :14 Blood hemoglobin A1C measurement (mass/volume) 6.6 % 4.0-5.6 MEAN BLOOD GLUCOSE 143 % <=126 Urine microalbumin measurement by test s trip (mass/volume) - 05/17/19 09:23 MICROALBUMIN/CREATININE RATIO 28.8 mg/g{Cre} 0.0-30.0 Urine creatinine measurement (mass/volume) 145 % NRG Albumin/creatinine ratio panel in random urine for detection of microalbuminuria 41.8 % 0.0-20.0 Complete blood count (CBC) with automate d white blood cell (WBC) differential - 06/27/19 10:20 Blood leukocytes automated count (number/volume) 7.0 10*3/uL 4.3-11.0 Blood erythrocytes automated count (number/volume) 3.85 10*6/uL 4.35-5.85 Venous blood hemoglobin measurement (mass/volume) 10.2 g/dL 11.5-16.0 Blood hematocrit (volume fraction) 34 % 35-52 Automated erythrocyte mean corpuscular volume 87 [ foz_us] 80-99 Automated erythrocyte mean corpuscular h emoglobin (mass per erythrocyte) 26 pg 25-34 Automated erythrocyte mean corpuscular h emoglobin concentration measurement (mass/volume) 30 g/dL 32-36 Automated erythrocyte distribution width ratio 16. 0 % 10.0- 14.5 Automated blood platelet count (count/volume) 299 10*3/uL 130-400 Automated blood platelet mean volume measurement 10.5 [foz_us] 7.4-10.4 Automated blood neutrophils/100 leukocytes 76 % 42-75 Automated blood lymphocytes/100 leukocytes 13 % 12-44 Blood monocytes/100 leukocytes 8 % 0-12 Automated blood eosinophils/100 leukocytes 3 % 0-10 Automated blood basophils/100 leukocytes 0 % 0-10 Blood neutrophils automated count (number/volume) 5.3 10*3 1.8-7.8 Blood lymphocytes automated count (number/volume) 0.9 10*3 1.0-4.0 Blood monocytes automated count (number/volume) 0. 5 10*3 0.0-1.0 Automated eosinophil count 0.2 10*3/uL 0 .0-0.3 Automated blood basophil count (count/volume) 0.0 10*3/uL 0.0-0.1 PT panel in platelet poor plasma by coag ulation assay - 06/27/19 10:20 Prothrombin time (PT) in platelet poor plasma by coagu lation assay 16.3 s 12.2-14.7 INR in platelet poor plasma or blood by coagulation as say 1.3 0.8-1.4 Complete urinalysis with reflex to cultu re - 06/27/19 10:20 Urine color determination YELLOW NRG Urine clarity determination CLEAR NR G Urine pH measurement by test strip 6.0 5-9 Specific gravity of urine by test strip 1.015 1.016-1.022 Urine protein assay by test strip, semi-quantitative NEGATIVE NEGATIVE Urine glucose detection by automated test strip TR ISATU NEGATIVE Erythrocytes detection in urine sediment by light micr oscopy 1+ NEGATIVE Urine ketones detection by automated test strip NE GATIVE NEGATIVE Urine nitrite detection by test strip NEGATIVE NEGATIVE Urine total bilirubin detection by test strip NEGA TIVE NEGATIVE Urine urobilinogen measurement by automated test strip (mass/volume) 0.2 mg/dL < = 1.0 Urine leukocyte esterase detection by dipstick NEG ATIVE NEGATIVE Automated urine sediment erythrocyte cou nt by microscopy (number/high power field) [HPF] NRG Automated urine sediment leukocyte count by microscopy (number/high power field) NONE NRG Bacteria detection in urine sediment by light microsco py TRACE NRG Squamous epithelial cells detection in u rine sediment by light microscopy 0-2 NRG Crystals detection in urine sediment by light microsco py NONE NRG Casts detection in urine sediment by light microscopy NONE NRG Mucus detection in urine sediment by light microscopy NEGATIVE NRG Complete urinalysis with reflex to culture NO NRG Comprehensive metabolic panel - 06/27/19 10:20 Serum or plasma sodium measurement (moles/volume) 137 mmol/L 135-145 Serum or plasma potassium measurement (moles/volume) 4.7 mmol/L 3.6-5.0 Serum or plasma chloride measurement (moles/volume) 102 mmol/L 98-107 Carbon dioxide 27 mmol/L 21-32 Serum or plasma anion gap determination (moles/volume) 8 mmol/L 5-14 Serum or plasma urea nitrogen measurement (mass/volume ) 14 mg/dL 7-18 Serum or plasma creatinine measurement (mass/volume) 0.75 mg/dL 0.60-1.30 Serum or plasma urea nitrogen/creatinine mass ratio 19 NRG Serum or plasma creatinine measurement w ith calculation of estimated glomerular filtration rate > NRG Serum or plasma glucose measurement (mass/volume) 229 mg/dL 70-105 Serum or plasma calcium measurement (mass/volume) 9.5 mg/dL 8.5-10.1 Serum or plasma total bilirubin measurement (mass/volu me) 0.5 mg/dL 0.1-1.0 Serum or plasma alkaline phosphatase kaycee surement (enzymatic activity/volume) 127 U/L 40-136 Serum or plasma aspartate aminotransfera se measurement (enzymatic activity/volume) 17 U/L 5-34 Serum or plasma alanine aminotransferase measurement (enzymatic activity/volume) 14 U/L 0-55 Serum or plasma protein measurement (mass/volume) 8.0 g/dL 6.4-8.2 Serum or plasma albumin measurement (mass/volume) 4.1 g/dL 3.2-4.5 CALCIUM CORRECTED 9.4 mg/dL 8.5-10.1 Erythrocyte sedimentation rate by cy gren method - 06/27/19 10:20 Erythrocyte sedimentation rate by westergren method 69 mm 0- 30 Blood type T Indirect antibody screen pa ender - 06/27/19 10:20 WRISTBAND NUMBER TNP NRG ABO+Rh group OP NRG Blood group antibody screen NEGATIVE NR G Methicillin resistant Staphylococcus aur eus (MRSA) screening culture - 06/27/19 10:20 Methicillin resistant Staphylococcus aureus (MRSA) scr eening culture NEG NRG Capillary blood glucose measurement by g lucometer (mass/volume) - 07/04/19 06:24 Capillary blood glucose measurement by glucometer (mas s/volume) 249 mg/dL 70-110 [id number] - 07/04/19 06:30 [id number] SPECIMEN AVAILABLE NR Capillary blood glucose measurement by g lucometer (mass/volume) - 07/04/19 09:31 Capillary blood glucose measurement by glucometer (mas s/volume) 354 mg/dL 70-110 Capillary blood glucose measurement by g lucometer (mass/volume) - 07/04/19 13:26 Capillary blood glucose measurement by glucometer (mas s/volume) 514 mg/dL 70-110 Capillary blood glucose measurement by g lucometer (mass/volume) - 07/04/19 16:59 Capillary blood glucose measurement by glucometer (mas s/volume) 455 mg/dL 70-110 Whole blood basic metabolic panel - 06/16 02/02 19:29 Serum or plasma sodium measurement (moles/volume) 138 mmol/L 135-145 Serum or plasma potassium measurement (moles/volume) 5.6 mmol/L 3.6-5.0 Serum or plasma chloride measurement (moles/volume) 103 mmol/L 98-107 Carbon dioxide 23 mmol/L 21-32 Serum or plasma anion gap determination (moles/volume) 12 mmol/L 5-14 Serum or plasma urea nitrogen measurement (mass/volume ) 34 mg/dL 7-18 Serum or plasma creatinine measurement (mass/volume) 1.50 mg/dL 0.60-1.30 Serum or plasma urea nitrogen/creatinine mass ratio 23 NRG Serum or plasma creatinine measurement w ith calculation of estimated glomerular filtration rate 34 NRG Serum or plasma glucose measurement (mass/volume) 339 mg/dL 70-105 Serum or plasma calcium measurement (mass/volume) 8.9 mg/dL 8.5-10.1 Capillary blood glucose measurement by g lucometer (mass/volume) - 07/04/19 20:34 Capillary blood glucose measurement by glucometer (mas s/volume) 289 mg/dL 70-110 Capillary blood glucose measurement by g lucometer (mass/volume) - 07/05/19 05:41 Capillary blood glucose measurement by glucometer (mas s/volume) 144 mg/dL 70-110 Complete blood count (CBC) with automate d white blood cell (WBC) differential - 07/05/19 06:25 Blood leukocytes automated count (number/volume) 13.4 10*3/uL 4.3-11.0 Blood erythrocytes automated count (number/volume) 3.17 10*6/uL 4.35-5.85 Venous blood hemoglobin measurement (mass/volume) 8.5 g/dL 11.5-16.0 Blood hematocrit (volume fraction) 28 % 35-52 Automated erythrocyte mean corpuscular volume 88 [ foz_us] 80-99 Automated erythrocyte mean corpuscular h emoglobin (mass per erythrocyte) 27 pg 25-34 Automated erythrocyte mean corpuscular h emoglobin concentration measurement (mass/volume) 31 g/dL 32-36 Automated erythrocyte distribution width ratio 16. 1 % 10.0- 14.5 Automated blood platelet count (count/volume) 275 10*3/uL 130-400 Automated blood platelet mean volume measurement 10.2 [foz_us] 7.4-10.4 Automated blood neutrophils/100 leukocytes 78 % 42-75 Automated blood lymphocytes/100 leukocytes 9 % 12-44 Blood monocytes/100 leukocytes 13 % 0-12 Automated blood eosinophils/100 leukocytes 0 % 0-10 Automated blood basophils/100 leukocytes 0 % 0-10 Blood neutrophils automated count (number/volume) 10.4 10*3 1.8-7.8 Blood lymphocytes automated count (number/volume) 1.2 10*3 1.0-4.0 Blood monocytes automated count (number/volume) 1. 7 10*3 0.0-1.0 Automated eosinophil count 0.0 10*3/uL 0 .0-0.3 Automated blood basophil count (count/volume) 0.0 10*3/uL 0.0-0.1 Complete blood count (CBC) with automate d white blood cell (WBC) differential - 07/05/19 06:25 Blood leukocytes automated count (number/volume) 13.4 10*3/uL 4.3-11.0 Blood erythrocytes automated count (number/volume) 3.17 10*6/uL 4.35-5.85 Venous blood hemoglobin measurement (mass/volume) 8.5 g/dL 11.5-16.0 Blood hematocrit (volume fraction) 28 % 35-52 Automated erythrocyte mean corpuscular volume 88 [ foz_us] 80-99 Automated erythrocyte mean corpuscular h emoglobin (mass per erythrocyte) 27 pg 25-34 Automated erythrocyte mean corpuscular h emoglobin concentration measurement (mass/volume) 31 g/dL 32-36 Automated erythrocyte distribution width ratio 16. 1 % 10.0- 14.5 Automated blood platelet count (count/volume) 275 10*3/uL 130-400 Automated blood platelet mean volume measurement 10.2 [foz_us] 7.4-10.4 Automated blood neutrophils/100 leukocytes 78 % 42-75 Automated blood lymphocytes/100 leukocytes 9 % 12-44 Blood monocytes/100 leukocytes 13 % 0-12 Automated blood eosinophils/100 leukocytes 0 % 0-10 Automated blood basophils/100 leukocytes 0 % 0-10 Blood neutrophils automated count (number/volume) 10.4 10*3 1.8-7.8 Blood lymphocytes automated count (number/volume) 1.2 10*3 1.0-4.0 Blood monocytes automated count (number/volume) 1. 7 10*3 0.0-1.0 Automated eosinophil count 0.0 10*3/uL 0 .0-0.3 Automated blood basophil count (count/volume) 0.0 10*3/uL 0.0-0.1 Comprehensive metabolic panel - 07/05/19 06:25 Serum or plasma sodium measurement (moles/volume) 137 mmol/L 135-145 Serum or plasma potassium measurement (moles/volume) 5.1 mmol/L 3.6-5.0 Serum or plasma chloride measurement (moles/volume) 102 mmol/L 98-107 Carbon dioxide 23 mmol/L 21-32 Serum or plasma anion gap determination (moles/volume) 12 mmol/L 5-14 Serum or plasma urea nitrogen measurement (mass/volume ) 38 mg/dL 7-18 Serum or plasma creatinine measurement (mass/volume) 1.57 mg/dL 0.60-1.30 Serum or plasma urea nitrogen/creatinine mass ratio 24 NRG Serum or plasma creatinine measurement w ith calculation of estimated glomerular filtration rate 33 NRG Serum or plasma glucose measurement (mass/volume) 166 mg/dL 70-105 Serum or plasma calcium measurement (mass/volume) 8.9 mg/dL 8.5-10.1 Serum or plasma total bilirubin measurement (mass/volu me) 0.6 mg/dL 0.1-1.0 Serum or plasma alkaline phosphatase kaycee surement (enzymatic activity/volume) 110 U/L 40-136 Serum or plasma aspartate aminotransfera se measurement (enzymatic activity/volume) 18 U/L 5-34 Serum or plasma alanine aminotransferase measurement (enzymatic activity/volume) 16 U/L 0-55 Serum or plasma protein measurement (mass/volume) 7.1 g/dL 6.4-8.2 Serum or plasma albumin measurement (mass/volume) 3.7 g/dL 3.2-4.5 CALCIUM CORRECTED 9.1 mg/dL 8.5-10.1 Magnesium - 07/05/19 06:25 Magnesium 1.9 mg/dL 1.6-2.4 IRON TEST - 07/05/19 06:25 Serum or plasma iron measurement (mass/volume) 15 % 35-180 Capillary blood glucose measurement by g lucometer (mass/volume) - 07/05/19 10:58 Capillary blood glucose measurement by glucometer (mas s/volume) 301 mg/dL 70-110 Capillary blood glucose measurement by g lucometer (mass/volume) - 07/05/19 16:00 Capillary blood glucose measurement by glucometer (mas s/volume) 185 mg/dL 70-110 Capillary blood glucose measurement by g lucometer (mass/volume) - 07/05/19 20:39 Capillary blood glucose measurement by glucometer (mas s/volume) 184 mg/dL 70-110 Complete blood count (CBC) with automate d white blood cell (WBC) differential - 07/06/19 05:05 Blood leukocytes automated count (number/volume) 9.3 10*3/uL 4.3-11.0 Blood erythrocytes automated count (number/volume) 3.14 10*6/uL 4.35-5.85 Venous blood hemoglobin measurement (mass/volume) 8.5 g/dL 11.5-16.0 Blood hematocrit (volume fraction) 27 % 35-52 Automated erythrocyte mean corpuscular volume 86 [ foz_us] 80-99 Automated erythrocyte mean corpuscular h emoglobin (mass per erythrocyte) 27 pg 25-34 Automated erythrocyte mean corpuscular h emoglobin concentration measurement (mass/volume) 32 g/dL 32-36 Automated erythrocyte distribution width ratio 15. 7 % 10.0- 14.5 Automated blood platelet count (count/volume) 217 10*3/uL 130-400 Automated blood platelet mean volume measurement 10.6 [foz_us] 7.4-10.4 Automated blood neutrophils/100 leukocytes 83 % 42-75 Automated blood lymphocytes/100 leukocytes 7 % 12-44 Blood monocytes/100 leukocytes 10 % 0-12 Automated blood eosinophils/100 leukocytes 0 % 0-10 Automated blood basophils/100 leukocytes 0 % 0-10 Blood neutrophils automated count (number/volume) 7.7 10*3 1.8-7.8 Blood lymphocytes automated count (number/volume) 0.6 10*3 1.0-4.0 Blood monocytes automated count (number/volume) 0. 9 10*3 0.0-1.0 Automated eosinophil count 0.0 10*3/uL 0 .0-0.3 Automated blood basophil count (count/volume) 0.0 10*3/uL 0.0-0.1 Comprehensive metabolic panel - 07/06/19 05:05 Serum or plasma sodium measurement (moles/volume) 132 mmol/L 135-145 Serum or plasma potassium measurement (moles/volume) 5.0 mmol/L 3.6-5.0 Serum or plasma chloride measurement (moles/volume) 101 mmol/L 98-107 Carbon dioxide 21 mmol/L 21-32 Serum or plasma anion gap determination (moles/volume) 10 mmol/L 5-14 Serum or plasma urea nitrogen measurement (mass/volume ) 29 mg/dL 7-18 Serum or plasma creatinine measurement (mass/volume) 0.82 mg/dL 0.60-1.30 Serum or plasma urea nitrogen/creatinine mass ratio 35 NRG Serum or plasma creatinine measurement w ith calculation of estimated glomerular filtration rate > NRG Serum or plasma glucose measurement (mass/volume) 153 mg/dL 70-105 Serum or plasma calcium measurement (mass/volume) 9.1 mg/dL 8.5-10.1 Serum or plasma total bilirubin measurement (mass/volu me) 0.6 mg/dL 0.1-1.0 Serum or plasma alkaline phosphatase kaycee surement (enzymatic activity/volume) 113 U/L 40-136 Serum or plasma aspartate aminotransfera se measurement (enzymatic activity/volume) 35 U/L 5-34 Serum or plasma alanine aminotransferase measurement (enzymatic activity/volume) 22 U/L 0-55 Serum or plasma protein measurement (mass/volume) 6.9 g/dL 6.4-8.2 Serum or plasma albumin measurement (mass/volume) 3.5 g/dL 3.2-4.5 CALCIUM CORRECTED 9.5 mg/dL 8.5-10.1 Capillary blood glucose measurement by g lucometer (mass/volume) - 07/06/19 11:29 Capillary blood glucose measurement by glucometer (mas s/volume) 399 mg/dL 70-110 Capillary blood glucose measurement by g lucometer (mass/volume) - 07/06/19 16:02 Capillary blood glucose measurement by glucometer (mas s/volume) 174 mg/dL 70-110 Capillary blood glucose measurement by g lucometer (mass/volume) - 07/06/19 20:39 Capillary blood glucose measurement by glucometer (mas s/volume) 285 mg/dL 70-110 Capillary blood glucose measurement by g lucometer (mass/volume) - 07/07/19 05:38 Capillary blood glucose measurement by glucometer (mas s/volume) 101 mg/dL 70-110 Capillary blood glucose measurement by g lucometer (mass/volume) - 07/07/19 05:44 Capillary blood glucose measurement by glucometer (mas s/volume) 145 mg/dL 70-110 Capillary blood glucose measurement by g lucometer (mass/volume) - 07/07/19 11:09 Capillary blood glucose measurement by glucometer (mas s/volume) 262 mg/dL 70-110 Capillary blood glucose measurement by g lucometer (mass/volume) - 07/07/19 16:16 Capillary blood glucose measurement by glucometer (mas s/volume) 70 mg/dL 70-110 Capillary blood glucose measurement by g lucometer (mass/volume) - 07/07/19 20:41 Capillary blood glucose measurement by glucometer (mas s/volume) 305 mg/dL 70-110 Capillary blood glucose measurement by g lucometer (mass/volume) - 07/08/19 01:49 Capillary blood glucose measurement by glucometer (mas s/volume) 83 mg/dL 70-110 Capillary blood glucose measurement by g lucometer (mass/volume) - 07/08/19 06:42 Capillary blood glucose measurement by glucometer (mas s/volume) 163 mg/dL 70-110 Capillary blood glucose measurement by g lucometer (mass/volume) - 07/08/19 11:02 Capillary blood glucose measurement by glucometer (mas s/volume) 339 mg/dL 70-110 Capillary blood glucose measurement by g lucometer (mass/volume) - 07/08/19 15:55 Capillary blood glucose measurement by glucometer (mas s/volume) 261 mg/dL 70-110 Capillary blood glucose measurement by g lucometer (mass/volume) - 07/08/19 20:38 Capillary blood glucose measurement by glucometer (mas s/volume) 146 mg/dL 70-110 Complete blood count (CBC) with automate d white blood cell (WBC) differential - 07/09/19 05:35 Blood leukocytes automated count (number/volume) 8.6 10*3/uL 4.3-11.0 Blood erythrocytes automated count (number/volume) 3.31 10*6/uL 4.35-5.85 Venous blood hemoglobin measurement (mass/volume) 9.0 g/dL 11.5-16.0 Blood hematocrit (volume fraction) 29 % 35-52 Automated erythrocyte mean corpuscular volume 86 [ foz_us] 80-99 Automated erythrocyte mean corpuscular h emoglobin (mass per erythrocyte) 27 pg 25-34 Automated erythrocyte mean corpuscular h emoglobin concentration measurement (mass/volume) 32 g/dL 32-36 Automated erythrocyte distribution width ratio 16. 0 % 10.0- 14.5 Automated blood platelet count (count/volume) 325 10*3/uL 130-400 Automated blood platelet mean volume measurement 10.0 [foz_us] 7.4-10.4 Automated blood neutrophils/100 leukocytes 69 % 42-75 Automated blood lymphocytes/100 leukocytes 15 % 12-44 Blood monocytes/100 leukocytes 11 % 0-12 Automated blood eosinophils/100 leukocytes 5 % 0-10 Automated blood basophils/100 leukocytes 0 % 0-10 Blood neutrophils automated count (number/volume) 6.0 10*3 1.8-7.8 Blood lymphocytes automated count (number/volume) 1.3 10*3 1.0-4.0 Blood monocytes automated count (number/volume) 1. 0 10*3 0.0-1.0 Automated eosinophil count 0.4 10*3/uL 0 .0-0.3 Automated blood basophil count (count/volume) 0.0 10*3/uL 0.0-0.1 Comprehensive metabolic panel - 07/09/19 05:35 Serum or plasma sodium measurement (moles/volume) 140 mmol/L 135-145 Serum or plasma potassium measurement (moles/volume) 4.4 mmol/L 3.6-5.0 Serum or plasma chloride measurement (moles/volume) 105 mmol/L 98-107 Carbon dioxide 24 mmol/L 21-32 Serum or plasma anion gap determination (moles/volume) 11 mmol/L 5-14 Serum or plasma urea nitrogen measurement (mass/volume ) 17 mg/dL 7-18 Serum or plasma creatinine measurement (mass/volume) 0.73 mg/dL 0.60-1.30 Serum or plasma urea nitrogen/creatinine mass ratio 23 NRG Serum or plasma creatinine measurement w ith calculation of estimated glomerular filtration rate > NRG Serum or plasma glucose measurement (mass/volume) 126 mg/dL 70-105 Serum or plasma calcium measurement (mass/volume) 9.1 mg/dL 8.5-10.1 Serum or plasma total bilirubin measurement (mass/volu me) 0.5 mg/dL 0.1-1.0 Serum or plasma alkaline phosphatase kaycee surement (enzymatic activity/volume) 121 U/L 40-136 Serum or plasma aspartate aminotransfera se measurement (enzymatic activity/volume) 19 U/L 5-34 Serum or plasma alanine aminotransferase measurement (enzymatic activity/volume) 24 U/L 0-55 Serum or plasma protein measurement (mass/volume) 6.7 g/dL 6.4-8.2 Serum or plasma albumin measurement (mass/volume) 3.4 g/dL 3.2-4.5 CALCIUM CORRECTED 9.6 mg/dL 8.5-10.1 Magnesium - 07/09/19 05:35 Magnesium 2.1 mg/dL 1.6-2.4 Capillary blood glucose measurement by g lucometer (mass/volume) - 07/09/19 11:00 Capillary blood glucose measurement by glucometer (mas s/volume) 176 mg/dL 70-110 Capillary blood glucose measurement by g lucometer (mass/volume) - 07/09/19 15:32 Capillary blood glucose measurement by glucometer (mas s/volume) 242 mg/dL 70-110 Capillary blood glucose measurement by g lucometer (mass/volume) - 07/09/19 21:14 Capillary blood glucose measurement by glucometer (mas s/volume) 175 mg/dL 70-110 Capillary blood glucose measurement by g lucometer (mass/volume) - 07/09/19 22:36 Capillary blood glucose measurement by glucometer (mas s/volume) 183 mg/dL 70-110 Capillary blood glucose measurement by g lucometer (mass/volume) - 07/10/19 05:58 Capillary blood glucose measurement by glucometer (mas s/volume) 230 mg/dL 70-110 Capillary blood glucose measurement by g lucometer (mass/volume) - 07/10/19 10:45 Capillary blood glucose measurement by glucometer (mas s/volume) 241 mg/dL 70-110 Encounters ACCT No. Visit Date/Time Discharge Status Pt. Type Provider Facility Loc./Unit Complaint [id number] 07/05/2019 12:00:00 14:30:00 DIS Inpatient JESSEE BOWLES, HEATHER [place] [facility] IRF S/P LEFT TKR [id number] 07/04/2019 05:56:00 12:00:00 DIS Outpatient ROSALINA VALDES MD [facility] 4TH LEFT KNEE OSTEOARTHRIT IS [id number] 06/27/2019 09:52:00 13:26:00 DIS Outpatient ROSALINA VALDES MD [facility] PREOP LEFT KNEE OSTEOARTHRIT IS [id number] 05/17/2019 08:55:00 23:59:59 CLS Outpatient PADMAJA CONWAY MD [facility] LAB DIABETES MELLIT US [id number] 01/30/2019 11:38:00 23:59:59 CLS Outpatient PATTY BARCLAY [facility] LAB TYPE 1 MELLITUS [id number] 12/13/2018 00:13:00 23:59:59 CLS Preadmit ROSALINA VALDES MD [facility] REHAB HX OF RIGHT TOTAL KNEE ARTHROPLASTY [id number] 11/17/2018 14:32:00 00:01:00 DIS Outpatient ROSALINA VALDES MD [facility] REHAB HX OF RIGHT TOTAL KNEE ARTHROPLASTY [id number] 10/23/2018 14:20:00 23:59:59 CLS Outpatient PADMAJA CONWAY MD [facility] LAB TYPE 1 DIABETES [id number] 08/23/2018 05:46:00 11:10:00 DIS Inpatient ROSALINA VALDES MD [facility] 4TH OSTEOARTHRITIS RIGHT KN EE [id number] 08/16/2018 11:34:00 23:59:59 CLS Outpatient ROSALINA VALDES MD [facility] PREOP OSTEOARTHRITIS RIGHT K NEE [id number] 07/11/2018 08:28:00 23:59:59 CLS Outpatient PATTY BARCLAY [facility] LAB TYPE 1 DIABETES [id number] 06/26/2018 12:51:00 23:59:59 CLS Outpatient CHARLES LINN MD, FACC, FACP DS [facility] CARD CAROTID ART ERIAL DISEASE [id number] 06/06/2018 07:33:00 23:59:59 CLS Outpatient CHARLES LINN MD, FACC, FACP DS [facility] CARD CAROTID ART ERIAL DISEASE [id number] 04/04/2018 15:04:00 23:59:59 CLS Outpatient PATTY BARCLAY [facility] LAB E10.65 [id number] 02/14/2018 10:52:00 23:59:59 CLS Outpatient ROSALINA VALDES MD [facility] RAD LUMBAR RADICULOPATHY [id number] 01/17/2018 08:26:00 018 23:59:59 CLS Outpatient PATTY BARCLAY [facility] LAB E10.65 [id number] 01/11/2018 13:06:00 018 13:36:00 DIS Outpatient ROSALINA VALDES MD [facility] REHAB S/P R KNEE SCOPE; OA R KNEE [id number] 11/15/2017 15:45:00 018 00:01:00 DIS [facility] OA R [facility]NEE [id number] 10/12/2017 06:05:00 018 10:50:00 DIS Outpatient ROSALINA VALDES MD Via [facility] LEFT KNEE TORN MEDIAL AND LATERAL MENISCUS [id number] 09/27/2017 09:01:00 018 15:17:00 DIS Emergency SHIN SANTIAGO MD Via [facility] ER VOMITING/DIARRH EA [id number] 09/22/2017 11:25:00 018 12:41:00 DIS Outpatient ROSALINA VALDES MD Via [facility] PREOP LEFT KNEE TORN MEDIAL/ LATERAL MENISCUS [id number] 08/03/2017 06:30:00 018 11:52:00 DIS Outpatient ROSALINA VALDES MD Via 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 Via [facility] RAD M25.562 [id number] 03/24/2017 11:32:00 017 23:59:59 CLS Outpatient CAMERON HO MD Via [facility] LAB E66.9, E03.9, E78.5, E8 7.5, I10, R31.29 [id number] 12/15/2016 08:22:00 017 23:59:59 CLS Outpatient CAMERON HO MD Via [facility] LAB E10.65 E669.9 E78.5 I10 [id number] 09/14/2016 11:26:00 017 23:59:59 CLS Outpatient CAMERON HO MD Via [facility] LAB E10.65 [id number] 09/06/2016 14:24:00 017 23:59:59 CLS Outpatient SONIA ALVAREZ [employer] 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 Via [facility] RAD J20.8 [id number] 07/13/2016 21:00:00 017 06:30:00 DIS Outpatient BEA COLEMAN APRN Via [facility] SLEEP HYPERSOMNIA,PARASOMNIA,PAROXYSMAL AFIB,SLEEP DISOR [id number] 06/23/2016 12:55:00 017 23:59:59 CLS Outpatient BEA COLEMAN APRN Via [facility] RT SOB ON EXERTION ,PNEUMONIA [id number] 06/08/2016 11:06:00 23:59:59 CLS Outpatient CAMERON HO MD Via [facility] LAB E10.65 [id number] 05/17/2016 01:08:00 12:50:00 DIS Inpatient HEATHER HOOKS DO, V ia [facility] ICU W V D; PNEUMONIA;DKA [id number] 04/03/2016 04:25:00 13:13:00 DIS Inpatient GUY CURRY, SHELL R Via [facility] 4TH INTRACTABLE N/V,HYPERGL YCEMIA [id number] 02/25/2016 10:48:00 23:59:59 CLS Outpatient CAMERON HO MD Via [facility] LAB TYPE 1 DIABETES MELLITU S UNCONTROLLED [id number] 02/24/2016 11:17:00 11:17:00 CAN Preadmit CAMERON HO MD [facility] LAB DM, CUSTODIAL DRUG THER APY, OBESITY, HLP, HTN [id number] 11/20/2015 08:28:00 016 23:59:59 CLS Outpatient CAMERON HO MD Via [facility] LAB TYPE 1 DIABETES, HYPERLIPIDEMIA,HYPERKALEMIA, HTN, [id number] 08/12/2015 10:40:00 016 23:59:59 CLS Outpatient CAMERON HO MD Via [facility] LAB DM TYPE I WITH HYPERGLY CEMIA [id number] 05/05/2015 08:02:00 23:59:59 CLS Outpatient CAMERON HO MD Via [facility] LAB HYPOTHYROIDSIM,DM,HYPER LIPIDEMIA [id number] 01/23/2015 11:43:00 23:59:59 CLS Outpatient CAMERON HO MD Via [facility] LAB DM TYPE 1,HEMATURIA [id number] 10/08/2014 08:27:00 23:59:59 CLS Outpatient CAMERON HO MD Via [facility] LAB [id number] 04/24/2014 10:01:00 23:59:59 CLS Outpatient AURORA DENNEY Via [facility] CARD [id number] 04/18/2014 12:34:00 17:47:00 DIS Emergency AURORA DENNEY Via [facility] ER [id number] 04/14/2014 00:12:00 23:59:59 CLS Preadmit KARTIK BRANDT APRN Via [facility] SURG RCR BIT BY BAT [id number] 01/24/2014 09:49:00 00:01:00 DIS Outpatient KARTIK BRANDT [employer] FLE[employer] MECH[employer]IC Via [facility] SURG RCR [id number] 04/09/2014 00:11:00 23:59:59 CLS Preadmit VIC CURRY, CAMERON Parekh a [facility] LAB MICROSCOPIC HEMATURIA [id number] 01/08/2014 13:38:00 00:01:00 DIS Outpatient CAMERON HO MD Via [facility] LAB [id number] 03/28/2014 08:18:00 23:59:59 CLS Outpatient CAMERON HO MD Via [facility] LAB [id number] 01/24/2014 09:19:00 23:59:59 CLS Outpatient JAYNE HAYES MD Via [facility] RAD [id number] 01/24/2014 09:15:00 23:59:59 CLS Outpatient CAMERON HO MD Via [facility] RAD [id number] 01/10/2014 17:12:00 18:05:00 DIS Emergency [id number] 12/19/2013 11:32:00 23:59:59 CLS Outpatient [id number] 09/20/2013 10:34:00 23:59:59 CLS Outpatient [id number] 06/14/2013 09:29:00 014 23:59:59 CLS Outpatient [id number] 03/08/2013 08:02:00 23:59:59 CLS Outpatient [id number] 11/30/2012 10:31:00 23:59:59 CLS Outpatient [id number] 07/23/2019 11:48:00 P WILLIAM VALDES MD, ROSALINA Altman [facility] REHAB S/P L TKR [id number] 07/04/2014 10:27:00 Document Registration [id number] 10/14/2011 15:45:00 Document Registration
== END 2019-07-10 14:30 | disposition home health service (06) | DRG 560 ==
PROVIDERS: ADMIT Internal Medicine; ATTEND Internal Medicine
DX: Z47.1 Aftercare following joint replacement surgery (principal); Z96.652 Presence of left artificial knee joint; R31.0 Gross hematuria; D62 Acute posthemorrhagic anemia; I48.0 Paroxysmal atrial fibrillation; I48.92 Unspecified atrial flutter; I38 Endocarditis, valve unspecified; E11.65 Type 2 diabetes mellitus with hyperglycemia; I12.9 Hypertensive chronic kidney disease with stage 1 through stage 4 chronic kidney disease, or unspecified chronic kidney disease; N18.9 Chronic kidney disease, unspecified; G47.33 Obstructive sleep apnea (adult) (pediatric); G62.9 Polyneuropathy, unspecified; E03.9 Hypothyroidism, unspecified; E78.5 Hyperlipidemia, unspecified; I65.23 Occlusion and stenosis of bilateral carotid arteries; Z79.4 Long term (current) use of insulin; Z79.01 Long term (current) use of anticoagulants; Z90.710 Acquired absence of both cervix and uterus
CPT/HCPCS: 36415; 80053; 82962; 83735; 85025; 94640; 94760

== ENCOUNTER → 2019-07-23 | Outpatient (CLI) | payer MEDICARE, OTHER ==
[~2019-07-23] MED LIST changes: +ACHD5005 PO; -HYDR-3062 PO; +HYDR-34 PO; -HYDR-3816 PO; +NYST1000 PO; +SENN-20 PO
[2019-07-23 15:24] LABS: BASOPHILS % (AUTO) 1 % (0-10); EOSINOPHILS # (AUTO) 0.2 10^3/uL (0.0-0.3); EOSINOPHILS % (AUTO) 3 % (0-10); HEMATOCRIT 30 % (35-52); HEMOGLOBIN 9.2 G/DL (11.5-16.0); LYMPHOCYTES # (AUTO) 1.2 X 10^3 (1.0-4.0); LYMPHOCYTES % (AUTO) 19 % (12-44); MEAN CORPUSCULAR HEMOGLOBIN 28 PG (25-34); MEAN CORPUSCULAR HGB CONC 31 G/DL (32-36); MEAN CORPUSCULAR VOLUME 91 FL (80-99); MEAN PLATELET VOLUME 10.3 FL (7.4-10.4); MONOCYTES # (AUTO) 0.7 X 10^3 (0.0-1.0); MONOCYTES % (AUTO) 11 % (0-12); NEUTROPHILS # (AUTO) 4.2 X 10^3 (1.8-7.8); NEUTROPHILS % (AUTO) 67 % (42-75); PLATELET COUNT 338 10^3/uL (130-400); RED CELL DISTRIBUTION WIDTH 18.3 % (10.0-14.5); WHITE BLOOD COUNT 6.4 10^3/uL (4.3-11.0)
[2019-07-23 15:51] LABS: ALANINE AMINOTRANSFERASE 13 U/L (0-55); ALKALINE PHOSPHATASE 131 U/L (40-136); BILIRUBIN,TOTAL 0.4 MG/DL (0.1-1.0); BUN/CREATININE RATIO 18; CALCIUM 9.6 MG/DL (8.5-10.1); CARBON DIOXIDE 30 MMOL/L (21-32); CHLORIDE 105 MMOL/L (98-107); CREATININE SERUM 0.76 MG/DL (0.60-1.30); GFR ESTIMATED > 60; SODIUM 142 MMOL/L (135-145); TOTAL PROTEIN 7.4 GM/DL (6.4-8.2)
[2019-07-23 16:12] LABS: GLUCOSE 45 MG/DL (70-105)
== END ==
LOC: LAB 15:09
PROVIDERS: ATTEND Internal Medicine
DX: E11.9 Type 2 diabetes mellitus without complications (principal); D64.9 Anemia, unspecified
CPT/HCPCS: 36415; 80053; 83540; 85025

== ENCOUNTER → 2019-08-27 | Outpatient (CLI) | payer MEDICARE, OTHER ==
[2019-08-27 11:57] LABS: BASOPHILS % (AUTO) 0 % (0-10); EOSINOPHILS # (AUTO) 0.2 10^3/uL (0.0-0.3); EOSINOPHILS % (AUTO) 2 % (0-10); HEMATOCRIT 36 % (35-52); HEMOGLOBIN 11.3 G/DL (11.5-16.0); LYMPHOCYTES % (AUTO) 13 % (12-44); MEAN CORPUSCULAR HEMOGLOBIN 28 PG (25-34); MEAN CORPUSCULAR HGB CONC 31 G/DL (32-36); MEAN CORPUSCULAR VOLUME 89 FL (80-99); MEAN PLATELET VOLUME 10.8 FL (7.4-10.4); MONOCYTES # (AUTO) 0.5 X 10^3 (0.0-1.0); MONOCYTES % (AUTO) 7 % (0-12); NEUTROPHILS # (AUTO) 5.9 X 10^3 (1.8-7.8); NEUTROPHILS % (AUTO) 78 % (42-75); PLATELET COUNT 248 10^3/uL (130-400); WHITE BLOOD COUNT 7.5 10^3/uL (4.3-11.0)
[2019-08-27 12:11] LABS: ALBUMIN 4.1 GM/DL (3.2-4.5); CHLORIDE 103 MMOL/L (98-107); POTASSIUM 4.4 MMOL/L (3.6-5.0); SODIUM 139 MMOL/L (135-145)
[2019-08-27 12:12] LABS: CALCIUM 9.4 MG/DL (8.5-10.1)
[2019-08-27 12:13] LABS: GLUCOSE 212 MG/DL (70-105); TOTAL PROTEIN 7.7 GM/DL (6.4-8.2)
[2019-08-27 12:14] LABS: CARBON DIOXIDE 26 MMOL/L (21-32)
[2019-08-27 12:15] LABS: BILIRUBIN,TOTAL 0.5 MG/DL (0.1-1.0)
[2019-08-27 12:17] LABS: ALKALINE PHOSPHATASE 104 U/L (40-136); CREATININE SERUM 0.78 MG/DL (0.60-1.30); GFR ESTIMATED > 60
[2019-08-27 12:18] LABS: BUN/CREATININE RATIO 19
[2019-08-27 12:20] LABS: ALANINE AMINOTRANSFERASE 13 U/L (0-55)
== END ==
LOC: LAB 11:40
PROVIDERS: ATTEND Internal Medicine
DX: I10 Essential (primary) hypertension (principal); D64.9 Anemia, unspecified
CPT/HCPCS: 36415; 80053; 82728; 83540; 85025

== ENCOUNTER 2019-08-30 15:00 | Outpatient (RCR) | payer MEDICARE, OTHER | END 2019-10-21 | disposition home or self-care (01) | PROVIDERS: ATTEND Orthopaedic Surgery | DX: Z47.1 Aftercare following joint replacement surgery (principal); Z96.652 Presence of left artificial knee joint ==

== ENCOUNTER → 2019-09-19 | Outpatient (CLI) | payer MEDICARE, OTHER | LOC: LAB 14:26 | PROVIDERS: ATTEND Student in an Organized Health Care Education/Training Program | DX: E78.2 Mixed hyperlipidemia (principal); E10.65 Type 1 diabetes mellitus with hyperglycemia; I10 Essential (primary) hypertension; E03.9 Hypothyroidism, unspecified | CPT/HCPCS: 36415; 83036; 84443 ==

== ENCOUNTER → 2019-10-31 | Outpatient (CLI) | payer MEDICARE, OTHER ==
--- NOTE | 2019-11-01 10:17 | Diagnostic Imaging Report ---
INDICATION: Routine screening. COMPARISON is made with prior mammograms from 01/24/2014 and 12/16/2011. 2-D and 3-D bilateral screening mammography was performed with CAD. Scattered fibroglandular densities are identified bilaterally. There are scattered benign calcifications in both breasts. A nodular density in the outer right breast is stable. No new mass or malignant appearing microcalcifications are seen. Axillae are unremarkable. IMPRESSION: BI-RADS Category 2 No mammographic features suspicious for malignancy are identified. ACR BI-RADS Category 2: Benign findings. Result letter will be mailed to the patient. Note: At least 10% of breast cancer is not imaged by mammography. Dictated by: Dictated on workstation # [id number]
== END ==
LOC: RAD 14:30
PROVIDERS: ATTEND Internal Medicine
DX: Z12.31 Encounter for screening mammogram for malignant neoplasm of breast (principal)
CPT/HCPCS: 77063; 77067

== ENCOUNTER → 2019-12-24 | Outpatient (CLI) | payer MEDICARE, OTHER ==
[~2019-12-24] MED LIST changes: +MULT-567 PO; -MULT1TAB69 PO
[2019-12-24 09:02] LABS: CHLORIDE 105 MMOL/L (98-107); POTASSIUM 4.8 MMOL/L (3.6-5.0); SODIUM 141 MMOL/L (135-145)
[2019-12-24 09:03] LABS: ALBUMIN 4.2 GM/DL (3.2-4.5)
[2019-12-24 09:04] LABS: CALCIUM 9.6 MG/DL (8.5-10.1); TRIGLYCERIDES 79 MG/DL (<150); VLDL CHOLESTEROL 16 MG/DL (5-40)
[2019-12-24 09:05] LABS: GLUCOSE 100 MG/DL (70-105); TOTAL PROTEIN 7.8 GM/DL (6.4-8.2)
[2019-12-24 09:06] LABS: CARBON DIOXIDE 27 MMOL/L (21-32)
[2019-12-24 09:07] LABS: BILIRUBIN,TOTAL 0.7 MG/DL (0.1-1.0)
[2019-12-24 09:08] LABS: ALKALINE PHOSPHATASE 129 U/L (40-136)
[2019-12-24 09:09] LABS: CHOLESTEROL 149 MG/DL (< 200); CREATININE SERUM 0.76 MG/DL (0.60-1.30); GFR ESTIMATED > 60
[2019-12-24 09:10] LABS: BUN/CREATININE RATIO 26
[2019-12-24 09:11] LABS: HDL CHOLESTEROL 63 MG/DL (40-60)
[2019-12-24 09:12] LABS: ALANINE AMINOTRANSFERASE 26 U/L (0-55)
== END ==
LOC: LAB 08:25
PROVIDERS: ATTEND Student in an Organized Health Care Education/Training Program
DX: E03.9 Hypothyroidism, unspecified (principal); E10.65 Type 1 diabetes mellitus with hyperglycemia; I10 Essential (primary) hypertension; E78.2 Mixed hyperlipidemia
CPT/HCPCS: 36415; 80053; 80061; 82043; 83036; 84443

== ENCOUNTER → 2020-04-01 | Outpatient (CLI) | payer MEDICARE, OTHER ==
[~2020-04-01] MED LIST changes: +CLN.2T PO; -CLON0.2T PO; +ENAL10TA16 PO
== END ==
LOC: CARD 11:54
PROVIDERS: ATTEND Nurse Practitioner Family
DX: I25.5 Ischemic cardiomyopathy (principal); I51.7 Cardiomegaly; I34.0 Nonrheumatic mitral (valve) insufficiency
CPT/HCPCS: 93306

== ENCOUNTER → 2020-05-19 | Outpatient (CLI) | payer MEDICARE, OTHER ==
[~2020-05-19] MED LIST changes: -MONT10TA26 PO; +MONT10TA97 PO
[2020-05-19 09:23] LABS: BASOPHILS % (AUTO) 0 % (0-10); EOSINOPHILS # (AUTO) 0.2 10^3/uL (0.0-0.3); EOSINOPHILS % (AUTO) 3 % (0-10); HEMATOCRIT 34 % (35-52); HEMOGLOBIN 10.5 g/dL (11.5-16.0); LYMPHOCYTES % (AUTO) 14 % (12-44); MEAN CORPUSCULAR HEMOGLOBIN 28 pg (25-34); MEAN CORPUSCULAR HGB CONC 31 g/dL (32-36); MEAN CORPUSCULAR VOLUME 90 fL (80-99); MEAN PLATELET VOLUME 11.3 fL (9.0-12.2); MONOCYTES # (AUTO) 0.5 10^3/uL (0.0-1.0); MONOCYTES % (AUTO) 7 % (0-12); NEUTROPHILS # (AUTO) 5.4 10^3/uL (1.8-7.8); NEUTROPHILS % (AUTO) 76 % (42-75); PLATELET COUNT 262 10^3/uL (130-400); WHITE BLOOD COUNT 7.2 10^3/uL (4.3-11.0)
[2020-05-19 09:51] LABS: ALANINE AMINOTRANSFERASE 20 U/L (0-55); ALBUMIN 4.1 GM/DL (3.2-4.5); ALKALINE PHOSPHATASE 128 U/L (40-136); BILIRUBIN,TOTAL 0.5 MG/DL (0.1-1.0); BUN/CREATININE RATIO 27; CALCIUM 9.3 MG/DL (8.5-10.1); CARBON DIOXIDE 25 MMOL/L (21-32); CHLORIDE 105 MMOL/L (98-107); CREATININE SERUM 0.78 MG/DL (0.60-1.30); GFR ESTIMATED > 60; GLUCOSE 210 MG/DL (70-105); MAGNESIUM 2.4 MG/DL (1.6-2.4); POTASSIUM 4.6 MMOL/L (3.6-5.0); SODIUM 140 MMOL/L (135-145); TOTAL PROTEIN 8.1 GM/DL (6.4-8.2)
== END ==
LOC: LAB 08:52
PROVIDERS: ATTEND Internal Medicine Cardiovascular Disease
DX: I50.33 Acute on chronic diastolic (congestive) heart failure (principal)
CPT/HCPCS: 36415; 80053; 83735; 85025

== ENCOUNTER 2020-10-19 02:53 | Inpatient (IN) | payer MEDICARE, OTHER ==
[~2020-10-19] VITALS: Ht 162.5 cm; Wt 121.4 kg
[2020-10-19] VITALS (15 sets, daily range): BP systolic 129–204; BP diastolic 51–83
[~2020-10-19 02:53] MED LIST changes: +MONT10TA32 PO; -MONT10TA97 PO
[2020-10-19] MEDS ORDERED: ONDANSETRON 4 MG/2 ML (SDV) Z0FRAN IVP ONE ×2 (03:15→04:00)
[2020-10-19] MEDS ORDERED: PANTOPRAZOLE 40 MG (PROTONIX) VIAL IV ONE (03:15)
[2020-10-19] MEDS ORDERED: NS IV 1000 ML 1,000 ML IV SCH (03:15)
--- NOTE | 2020-10-19 03:19 | ED GI ---
General Chief Complaint: Abdominal/GI Problems Stated Complaint: VOMITING Source of Information: Patient (HAN MENDOZA DO) History of Present Illness Date Seen by Provider: Oct 19, 2020 Time Seen by Provider: 03:00 Initial Comments PT ARRIVES VIA POV FROM HOME PT STATES SHE STARTED GETTING SICK AROUND 1700 TONIGHT C/O NAUSEA/VOMITING--MOSTLY DRY HEAVES, "WITH A LITTLE BIT OF BILE" C/O "A LITTLE BIT OF DIARRHEA" X 2 NO ABDOMINAL PAIN NO FEVER NO URINARY SYMPTOMS AND VOIDING A NORMAL AMOUNT LAST FOOD INTAKE WAS AT NOON YESTERDAY--ATE PIZZA. STATES NO ONE ELSE IS ILL THAT ATE SAME NO SUSPICIOUS FOODS NO SICK CONTACTS PT HAS NOT TAKEN HER EVENING MEDICATIONS PT IS DIABETIC LAST BLOOD GLUCOSE AT HOME WAS 179 AROUND 1900 NO HISTORY OF PRIOR ABDOMINAL SURGERIES OTHER THAN HYSTERECTOMY HAS HISTORY OF GERD, BUT OTHERWISE NOT CHRONIC GI PROBLEMS PT DID RECEIVE AMADOU AND AMADOU COVID-19 VACCINE 07/2020 PCP: DR. FRAZIER (HAN MENDOZA DO) Allergies and Home Medications Allergies Coded Allergies: insulin detemir (Verified Allergy, Intermediate, RASH, takes Lantus & Humalog at home, 08/23/18) red bumps at insertion site of injection Has received regular insulin & Novolog during previous hospitalization morphine (Verified Adverse Reaction, Intermediate, Vomiting, 07/05/19) Home Medications Apixaban 5 Mg Tablet, 5 MG PO BID, (Reported) Last Action: Reviewed Cetirizine HCl 10 Mg Tablet, 10 MG PO DAILY, (Reported) Last Action: Reviewed Clonidine HCl 0.2 Mg Tablet, 0.2 MG PO BID, (Reported) Last Action: Reviewed Doxazosin Mesylate 2 Mg Tablet, 4 MG PO BID Prescribed by: HEATHER HOOKS on 07/10/19 0848 Last Action: Reviewed Enalapril Maleate 10 Mg Tablet, 10 MG PO DAILY, (Reported) Last Action: Reviewed Flaxseed Oil 1,000 Mg Capsule, 1,000 MG PO DAILY, (Reported) Last Action: Reviewed Flecainide Acetate 150 Mg Tablet, 150 MG PO BID, (Reported) Last Action: Reviewed Insulin Glargine,Hum.rec.anlog 300 Unit/1 Ml Insuln.pen, 26 UNIT SQ HS, (Reported) Last Action: Reviewed Insulin Lispro 100 Unit/1 Ml Cartridge, 0 SQ AC, (Reported) Last Action: Reviewed Levothyroxine Sodium 100 Mcg Tablet, 100 MCG PO DAILY, (Reported) Last Action: Reviewed Lutein 6 Mg Capsule, 6 MG PO DAILY, (Reported) Last Action: Reviewed Montelukast Sodium 10 Mg Tablet, 10 MG PO HS, (Reported) Last Action: Reviewed Multivitamin 1 Each Tablet, 1 TAB PO DAILY, (Reported) Last Action: Reviewed Omeprazole 20 Mg Capsule.dr, 20 MG PO DAILY, (Reported) Last Action: Reviewed Pravastatin Sodium 40 Mg Tablet, 40 MG PO DAILY, (Reported) Last Action: Reviewed Patient Home Medication List Home Medication List Reviewed: Yes (HAN MENDOZA DO) Review of Systems Review of Systems Constitutional: no symptoms reported; No fever Respiratory: No Symptoms Reported; Denies Shortness of Air Cardiovascular: No Symptoms Reported; Denies Chest Pain Gastrointestinal: See HPI; Denies Abdominal Pain; Diarrhea, Nausea, Poor Appeti te, Vomiting Genitourinary: No Symptoms Reported Musculoskeletal: no symptoms reported Skin: no symptoms reported Psychiatric/Neurological: No Symptoms Reported Endocrine: No Symptoms Reported Hematologic/Lymphatic: No Symptoms Reported (HAN MENDOZA DO) Past Mzxnktd-Lqajow-Clftkh Hx Past Med/Social Hx: Reviewed and Corrections made (HAN MENDOZA DO) Patient Social History Alcohol Use: Denies Use Drug of Choice: DENIES Smoking Status: Never a Smoker 2nd Hand Smoke Exposure: No Recent Hopitalizations: Yes (LEFT TKR 2-20) (HAN MENDOZA DO) Immunizations Up To Date Tetanus Booster (TDap): Less than 5yrs PED Vaccines UTD: No Date of Pneumonia Vaccine: Feb 21, 2017 Date of Influenza Vaccine: Feb 19, 2019 (HAN MENDOZA DO) Seasonal Allergies Seasonal Allergies: No (HAN MENDOZA DO) Past Medical History Surgeries: Yes (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, BILAT KNEE SCOPE, R TKR) Bladder Surgery, Breast, Hysterectomy, Joint Replacement, Orthopedic Respiratory: Yes (HAD ASTHMA A CHILD, LUNG PROBLEMS WHEN PT GETS COLDS) Asthma, Chronic Bronchitis, Sleep Apnea Currently Using CPAP: Yes Currently Using BIPAP: No Cardiac: Yes (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 12) Atrial Fibrillation, Chronic Edema/Swelling, High Cholesterol, Hypertension, Rheumatic Fever Neurological: Yes Neuropathy 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 Disorders: No 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, Menopausal Sexually Transmitted Disease: No HIV/AIDS: No Genitourinary: Yes (NIGHT INCONTINENCE) Gastrointestinal: Yes Gastroesophageal Reflux, Chronic Constipation Musculoskeletal: Yes (RT KNEE OSTEOARTHRITIS) Arthritis Endocrine: Yes (OBESITY) Diabetes, Insulin dep HEENT: Yes (GLASSES) Loss of Vision: Bilateral Hearing Impairment: Denies Cancer: No Psychosocial: No Integumentary: No Blood Disorders: No Adverse Reaction/Blood Tranf: No (N/A) (HAN MENDOZA DO) Family Medical History Arthritis 19 FATHER 19 MOTHER Asthma 19 FATHER Cardiovascular disease 19 FATHER 19 MOTHER Cataracts 19 MOTHER Deafness or hearing loss 19 FATHER Dementia 19 MOTHER Diabetes mellitus G8 SISTER G8 SISTER Glaucoma 19 FATHER Hypertension 19 MOTHER Prostate cancer 19 FATHER Respiratory disorder 19 FATHER Thyroid disease G8 SISTER Asthma, Heart Disease, Diabetes, Hypertension (HAN MENDOZA DO) Physical Exam Vital Signs Vital Signs - First Documented 10/19/20 02:58 Temp 36.5 Pulse 75 Resp 18 B/P (MAP) 187/95 (125) Pulse Ox 93 (SHIN SANTIAGO MD) Vital Signs Capillary Refill : (HAN MENDOZA DO) Height/Weight/BMI Height: 5'5.00" Weight: 226lbs. 4.0oz. 102.477072yg; 41.12 BMI Method:Stated General Appearance: WD/WN, no apparent distress, obese HEENT: PERRL/EOMI Neck: normal inspection Respiratory: normal breath sounds, no respiratory distress, no accessory muscle use Cardiovascular: regular rate, rhythm, no murmur Gastrointestinal: normal bowel sounds, soft; No distended, No guarding, No rebound; tenderness (MILD EPIGASTRIC TENDERNESS); No hernia, No mass Extremities: normal inspection, pedal edema (1+ BILATERALLY) Back: no CVA tenderness Neurologic/Psychiatric: bridge manager II-XII nml as tested, no motor/sensory deficits, alert, oriented x 3 Skin: normal color, warm/dry (HAN MENDOZA DO) Progress/Results/Core Measures Results/Orders Lab Results Laboratory Tests Test 10/19/20 03:05 10/19/20 03:27 10/19/20 03:43 10/19/20 04:30 Range/Units Glucometer 332 H 70-110 MG/DL White Blood Count 10.8 4.3-11.0 10^3/uL Red Blood Count 4.08 3.80-5.11 10^6/uL Hemoglobin 11.6 11.5-16.0 g/dL Hematocrit 36 35-52 % Mean Corpuscular Volume 89 80-99 fL Mean Corpuscular Hemoglobin 28 25-34 pg Mean Corpuscular Hemoglobin Concent 32 32-36 g/dL Red Cell Distribution Width 14.6 H 10.0-14.5 % Platelet Count 285 130-400 10^3/uL Mean Platelet Volume 10.9 9.0-12.2 fL Immature Granulocyte % (Auto) 1 % Neutrophils (%) (Auto) 92 H 42-75 % Lymphocytes (%) (Auto) 6 L 12-44 % Monocytes (%) (Auto) 1 0-12 % Eosinophils (%) (Auto) 0 0-10 % Basophils (%) (Auto) 0 0-10 % Neutrophils # (Auto) 9.9 H 1.8-7.8 10^3/uL Lymphocytes # (Auto) 0.7 L 1.0-4.0 10^3/uL Monocytes # (Auto) 0.1 0.0-1.0 10^3/uL Eosinophils # (Auto) 0.0 0.0-0.3 10^3/uL Basophils # (Auto) 0.0 0.0-0.1 10^3/uL Immature Granulocyte # (Auto) 0.1 0.0-0.1 10^3/uL Neutrophils % (Manual) 94 % Lymphocytes % (Manual) 5 % Monocytes % (Manual) 1 % Eosinophils % (Manual) 0 % Basophils % (Manual) 0 % Band Neutrophils 0 % Blood Morphology Comment NORMAL Sodium Level 140 135-145 MMOL/L Potassium Level 4.7 3.6-5.0 MMOL/L Chloride Level 101 98-107 MMOL/L Carbon Dioxide Level 22 21-32 MMOL/L Anion Gap 17 H 5-14 MMOL/L Blood Urea Nitrogen 25 H 7-18 MG/DL Creatinine 0.89 0.60-1.30 MG/DL Estimat Glomerular Filtration Rate > 60 BUN/Creatinine Ratio 28 Glucose Level 344 H 70-105 MG/DL Calcium Level 9.5 8.5-10.1 MG/DL Corrected Calcium 9.6 8.5-10.1 MG/DL Magnesium Level 2.0 1.6-2.4 MG/DL Total Bilirubin 0.8 0.1-1.0 MG/DL Aspartate Amino Transf (AST/SGOT) 25 5-34 U/L Alanine Aminotransferase (ALT/SGPT) 21 0-55 U/L Alkaline Phosphatase 151 H 40-136 U/L Troponin I < 0.028 <0.028 NG/ML Total Protein 8.3 H 6.4-8.2 GM/DL Albumin 3.9 3.2-4.5 GM/DL Amylase Level 54 25-125 U/L Lipase 13 8-78 U/L Thyroid Stimulating Hormone (TSH) 0.10 L 0.35-4.94 UIU/ML Free Thyroxine 1.44 0.70-1.48 NG/DL Urine Color YELLOW Urine Clarity CLEAR Urine pH 5.0 5-9 Urine Specific [place] >=1.030 1.016-1.022 Urine Protein TRACE H NEGATIVE Urine Glucose (UA) 3+ H NEGATIVE Urine Ketones 1+ H NEGATIVE Urine Nitrite NEGATIVE NEGATIVE Urine Bilirubin NEGATIVE NEGATIVE Urine Urobilinogen 0.2 < = 1.0 MG/DL Urine Leukocyte Esterase NEGATIVE NEGATIVE Urine RBC (Auto) TRACE-I NEGATIVE Urine RBC RARE /HPF Urine WBC RARE /HPF Urine Squamous Epithelial Cells 5-10 /HPF Urine Crystals NONE /LPF Urine Bacteria NEGATIVE /HPF Urine Casts NONE /LPF Urine Mucus NEGATIVE /LPF Urine Culture Indicated NO SARS-CoV-2 RNA (RT-PCR) Not Detected Not Detecte Test 10/19/20 05:07 Range/Units Glucometer 279 H 70-110 MG/DL (SHIN SANTIAGO MD) My Orders Orders - SHIN SANTIAGO MD Scopolamine Patch (Transderm-Scop Patch) (10/19/20 06:45) Scopolamine Patch (Transderm-Scop Patch) (10/19/20 06:44) Iohexol Injection (Omnipaque 350 Mg/Ml 1 (10/19/20 07:00) Received Contrast (Hold Metformin- Contr (10/19/20 07:00) Sodium Chloride Flush (Catheter Flush Sy (10/19/20 07:00) Ns (Ivpb) (Sodium Chloride 0.9% Ivpb Bag (10/19/20 07:00) Thyroid Stimulating Hormone (10/19/20 07:16) Free T4 (Free Thyroxine) (10/19/20 07:16) Clonidine Tablet (Catapres Tablet) (10/19/20 07:30) Hydralazine Injection (Apresoline Inject (10/19/20 07:45) Clonidine Patch (Catapres Patch) (10/19/20 07:45) (SHIN SANTIAGO MD) Medications Given in ED (SHIN SANTIAGO MD) Vital Signs/I&O 10/19/20 02:58 Temp 36.5 Pulse 75 Resp 18 B/P (MAP) 187/95 (125) Pulse Ox 93 (SHIN SANTIAGO MD) [facility] Bedside Testing Finger Stick Blood Glucose: 332 Blood Glucose Action Taken: notified (HAN MENDOZA DO) Progress Progress Note : Progress Note PT GIVEN IV FLUIDS, ZOFRAN, PROTONIX, PHENERGAN + BENADRYL, BUT STILL WITH INTRACTABLE NAUSEA AND DRY HEAVES GIVEN HYDRALAZINE AND LABETALOL FOR ELEVATED BLOOD PRESSURE GIVEN INSULIN FOR ELEVATED BLOOD GLUCOSE 0600--CARE TURNED OVER TO DR. SANTIAGO AT SHIFT CHANGE, CT PENDING. (HAN MENDOZA DO) Progress Note : Time: 07:45 Progress Note Patient's blood pressure is still markedly elevated at 207 systolic. We will repeat hydralazine and apply a clonidine patch. She is likely withdrawing from clonidine secondary to inability to take her last [address] of the abdomen showed some inguinal lymphadenopathy but no intra-abdominal pathology to explain her symptoms. She is still nauseated and does not believe she would tolerate a pill. She will be admitted to the ICU so that drips may be initiated if necessary. (SHIN SANTIAGO MD) Initial ECG Impression Date: Oct 19, 2020 Initial ECG Impression Time: 03:09 Initial ECG Rate: 74 Initial ECG Rhythm: Normal Sinus Initial ECG Impression: Nonspecific Changes (HAN MENDOZA DO) Diagnostic Imaging Diagonstic Imaging: CT Plain Films/CT/US/NM/MRI: abdomen, pelvis Comments CT abdomen and pelvis stat rad report reviewed. There is mild right external iliac lymphadenopathy of uncertain etiology. No intra-abdominal pathology identified to explain her symptoms. See report for details. (SHIN SANTIAGO MD) Departure Communication (Admissions) Time/Spoke to Admitting Phy: 07:40 Dr. Hooks (SHIN SANTIAGO MD) Impression Primary Impression: Intractable nausea and vomiting Additional Impressions: Epigastric abdominal pain Uncontrolled hypertension IDDM (insulin dependent diabetes mellitus) Abnormal CT of the abdomen Disposition: ADMITTED INPATIENT Condition: Improved Admissions Decision to Admit Reason: Admit from ER (General) Decision to Admit/Date: Oct 19, 2020 Time/Decision to Admit Time: 06:00 (SHIN SANTIAGO MD) Departure-Patient Inst. Referrals: HEATHER HOOKS DO (PCP/Family) Primary Care Physician HAN MENDOZA DO Oct 19, 2020 03:19 SHIN SANTIAGO MD Oct 19, 2020 07:53
[2020-10-19 03:34] LABS: BASOPHILS % (AUTO) 0 % (0-10); EOSINOPHILS % (AUTO) 0 % (0-10); HEMATOCRIT 36 % (35-52); HEMOGLOBIN 11.6 g/dL (11.5-16.0); LYMPHOCYTES # (AUTO) 0.7 10^3/uL (1.0-4.0); LYMPHOCYTES % (AUTO) 6 % (12-44); MEAN CORPUSCULAR HEMOGLOBIN 28 pg (25-34); MEAN CORPUSCULAR HGB CONC 32 g/dL (32-36); MEAN CORPUSCULAR VOLUME 89 fL (80-99); MEAN PLATELET VOLUME 10.9 fL (9.0-12.2); MONOCYTES # (AUTO) 0.1 10^3/uL (0.0-1.0); MONOCYTES % (AUTO) 1 % (0-12); NEUTROPHILS # (AUTO) 9.9 10^3/uL (1.8-7.8); NEUTROPHILS % (AUTO) 92 % (42-75); PLATELET COUNT 285 10^3/uL (130-400); WHITE BLOOD COUNT 10.8 10^3/uL (4.3-11.0)
[2020-10-19 03:42] LABS: ALBUMIN 3.9 GM/DL (3.2-4.5); CHLORIDE 101 MMOL/L (98-107); POTASSIUM 4.7 MMOL/L (3.6-5.0); SODIUM 140 MMOL/L (135-145)
[2020-10-19 03:43] LABS: CALCIUM 9.5 MG/DL (8.5-10.1)
[2020-10-19 03:44] LABS: AMYLASE 54 U/L (25-125)
[2020-10-19 03:45] LABS: GLUCOSE 344 MG/DL (70-105); TOTAL PROTEIN 8.3 GM/DL (6.4-8.2)
[2020-10-19 03:46] LABS: CARBON DIOXIDE 22 MMOL/L (21-32)
[2020-10-19 03:47] LABS: BILIRUBIN,TOTAL 0.8 MG/DL (0.1-1.0)
[2020-10-19 03:48] LABS: ALKALINE PHOSPHATASE 151 U/L (40-136); CREATININE SERUM 0.89 MG/DL (0.60-1.30); GFR ESTIMATED > 60
[2020-10-19 03:49] LABS: BUN/CREATININE RATIO 28
[2020-10-19 03:50] LABS: BILIRUBIN,URINE NEGATIVE (NEGATIVE); CLARITY,URINE CLEAR; COLOR,URINE YELLOW; GLUCOSE, URINE (UA) 3+ (NEGATIVE); KETONES,URINE 1+ (NEGATIVE); LEUKOCYTE ESTERASE ,URINE NEGATIVE (NEGATIVE); NITRITE,URINE NEGATIVE (NEGATIVE); PROTEIN,URINE TRACE (NEGATIVE)
[2020-10-19 03:51] LABS: ALANINE AMINOTRANSFERASE 21 U/L (0-55)
[2020-10-19 03:52] LABS: LIPASE 13 U/L (8-78)
[2020-10-19 03:54] LABS: BAND NEUTROPHILS 0 %; BASOPHILS % (MANUAL) 0 %; EOSINOPHILS % (MANUAL) 0 %; LYMPHOCYTES % (MANUAL) 5 %; MONOCYTES % (MANUAL) 1 %; NEUTROPHILS % (MANUAL) 94 %
[2020-10-19 03:55] LABS: RBC MORPH NORMAL
[2020-10-19 03:57] LABS: BACTERIA,URINE NEGATIVE /HPF; RBC,URINE RARE /HPF; WBC,URINE RARE /HPF
[2020-10-19] MEDS ORDERED: NITROGLYCERIN 2% OINT 1 GM UNIT DOSE PACKET TOP ONE (04:00)
[2020-10-19] MEDS ORDERED: inSUlin (REGULAR) HUMAN 1 UNIT/0.01 ML (CHARGE PER UNIT) IV ONE (04:00)
[2020-10-19] MEDS ORDERED: hydrALAZINE (APESOLINE) 20 MG/ML VIAL IV ONE ×2 (04:15→07:45)
[2020-10-19] MEDS ORDERED: PROMETHAZINE INJ 25 MG/ML (PHENERGAN) AMP IVP ONE (04:30)
[2020-10-19] MEDS ORDERED: diphenhydrAMINE 50 MG/ML INJ (BENADRYL) IVP ONE (04:30)
[2020-10-19] MEDS ORDERED: SCOPOLAMINE 1.5 MG (TRANSDERM-SCOP) PATCH ONE (06:44)
[2020-10-19] MEDS ORDERED: SCOPOLAMINE 1.5 MG (TRANSDERM-SCOP) PATCH TD ONE (06:45)
[2020-10-19] MEDS ORDERED: HOLD METFORMIN - RECEIVED CONTRAST 20 ML VIAL IV SCH (07:00)
[2020-10-19] MEDS ORDERED: NS 100 ML (IVPB) BAG IV ONE (07:00)
[2020-10-19] MEDS ORDERED: CATHETER FLUSH 10 ML SYR IV PRN ×2 (07:00→09:30)
[2020-10-19] MEDS ORDERED: IOHEXOL 350 MG/ML 100 ML (OMNIPAQUE 350) VIAL IV ONE (07:00)
[2020-10-19] MEDS ORDERED: cloNIDine 0.2 MG (CATAPRES) TAB PO ONE (07:30)
[2020-10-19] MEDS ORDERED: cloNIDine 0.2 MG PATCH (CATAPRES TTS) TDSY TD ONE (07:45)
--- NOTE | 2020-10-19 07:54 | Diagnostic Imaging Report ---
PROCEDURE: CT abdomen and pelvis with contrast, rule out appendicitis. TECHNIQUE: Multiple contiguous axial images were obtained through the abdomen and pelvis after the administration of intravenous contrast. All CT scans use one or more of the following dose optimizing techniques: automated exposure control, MA and/or KvP adjustment based on patient size and exam type or iterative reconstruction. INDICATION: Right lower quadrant abdominal pain. COMPARISON: CT abdomen and pelvis without contrast 05/16/2016. FINDINGS: The lung bases are clear. Atrophic pancreas. Liver, gallbladder, pancreas, adrenals, kidneys, collecting systems and bladder are negative. Hysterectomy. The appendix is not identified and may be surgically absent. No suspicious inflammatory findings in the region of the cecum. No free intraperitoneal air or fluid. Prominent bilateral external iliac lymph nodes, right greater than left, are nonspecific. No evidence of bowel obstruction or inflammation. No acute osseous findings. IMPRESSION: 1. Borderline enlarged external iliac lymph nodes, right greater than left, are nonspecific and may be reactive. These are new since the 2017 exam. Recommend clinical correlation and follow-up as warranted. 2. No other acute appearing CT findings in the abdomen or pelvis. Agree with preliminary interpretation. Dictated by: Dictated on workstation # [id number]
--- NOTE | 2020-10-19 08:23 | History & Physical ---
History of Present Illness HPI/Chief Complaint Chief complaint: Severe nausea and vomiting with malignant hypertension with severe hyperglycemia History of present illness: This is a 70-year-old white female clinic patient of mine who has very complex comorbidities who presented after 2 days of nausea and vomiting unable to keep anything down for her heart conditions or diabetes who is currently now on a Cardene drip due to the severity of her blood pressure and Dr. Dunlap has been consulted and started Lovenox therapeutic dose to cover for atrial fibrillation stroke prophylaxis. She reports that she has not had any diarrhea but overall she has become very lethargic and nearly falling at home. Source: patient, RN/MD, old records Exam Limitations: no limitations Date Seen 10/19/20 Time Seen by a Provider: 11:30 Attending Physician Paty Sen MD PCP Brittany Hooks DO Referring Physician Date of Admission Oct 19, 2020 at 07:51 Home Medications & Allergies Home Medications Reviewed patient Home Medication Reconciliation performed by pharmacy medication reconciliations medical technicians and/or nursing. Patients Allergies have been reviewed. Allergies Allergies Coded Allergies insulin detemir (Verified Allergy, Intermediate, RASH, takes Lantus & Humalog at home, 08/23/18) red bumps at insertion site of injection Has received regular insulin & Novolog during previous hospitalization morphine (Verified Adverse Reaction, Intermediate, Vomiting, 07/05/19) Past [place]-Glnxdp-Kivqck Hx Past Med/Social Hx: Reviewed Nursing Past Med/Soc Hx, Reviewed and Corrections made Patient Social History Marrital Status: single Alcohol Use: Denies Use Recreational Drug Use: No Drug of Choice: DENIES Smoking Status: Never a Smoker 2nd Hand Smoke Exposure: No Recent Foreign Travel: No Contact w/other who traveled: No Recent Hopitalizations: Yes (LEFT TKR 2-20) Recent Infectious Disease Expo: No Immunizations Up To Date Tetanus Booster (TDap): Less than 5yrs Pediatric: No Date of Pneumonia Vaccine: Feb 21, 2017 Date of Influenza Vaccine: Feb 19, 2019 Seasonal Allergies Seasonal Allergies: No Past Medical History Surgeries: Bladder Surgery, Breast, Hysterectomy, Joint Replacement, Orthopedic Respiratory: Sleep Apnea Currently Using CPAP: Yes Currently Using BIPAP: No Cardiac: Atrial Fibrillation, Chronic Edema/Swelling, High Cholesterol, Hypertension, Rheumatic Fever Neurological: Neuropathy 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: No Sexually Transmitted Disease: No HIV/AIDS: No Hysterectomy, Menopausal Gastrointestinal: Gastroesophageal Reflux, Chronic Constipation Musculoskeletal: Arthritis Endocrine: Diabetes, Insulin dep Loss of Vision: Bilateral Hearing Impairment: Denies History of Blood Disorders: No Adverse Reaction to Blood [place]: No (N/A) Family History Arthritis 19 FATHER 19 MOTHER Asthma 19 FATHER Cardiovascular disease 19 FATHER 19 MOTHER Cataracts 19 MOTHER Deafness or hearing loss 19 FATHER Dementia 19 MOTHER Diabetes mellitus G8 SISTER G8 SISTER Glaucoma 19 FATHER Hypertension 19 MOTHER Prostate cancer 19 FATHER Respiratory disorder 19 FATHER Thyroid disease G8 SISTER Asthma, Heart Disease, Diabetes, Hypertension Review of Systems Constitutional: see HPI, malaise, weakness EENTM: no symptoms reported Respiratory: no symptoms reported Cardiovascular: no symptoms reported Gastrointestinal: abdominal pain, loss of appetite, nausea, vomiting Genitourinary: no symptoms reported Musculoskeletal: no symptoms reported Skin: no symptoms reported Psychiatric/Neurological: No Symptoms Reported All Other Systems Reviewed Negative Unless Noted: Yes Physical Exam Physical Exam Vital Signs Vital Signs - First Documented 10/19/20 10/19/20 02:58 08:46 Temp 36.5 Pulse 75 Resp 18 B/P (MAP) 187/95 (125) Pulse Ox 93 O2 Delivery Room Air Capillary Refill : Less Than 3 Seconds Height, Weight, BMI Height: 5'5.00" Weight: 226lbs. 4.0oz. 102.520772nt; 41.00 BMI Method:Stated General Appearance: WD/WN, Anxious, Chronically ill, Mild Distress Eyes: Bilateral Eye Normal Inspection, Bilateral Eye PERRL HEENT: PERRL/EOMI, Normal ENT Inspection, Pharynx Normal Neck: Full Range of Motion, Normal Inspection, Non Tender, Supple, Carotid Bruit Respiratory: Chest Non Tender, Lungs Clear, Normal Breath Sounds, No Accessory Muscle Use, No Respiratory Distress Cardiovascular: No Edema, No Gallop, No JVD, No Murmur, Normal Peripheral Pulses, Irregularly Irregular Gastrointestinal: Normal Bowel Sounds, No Organomegaly, No Pulsatile Mass, Non Tender, Soft Back: Normal Inspection, No CVA Tenderness, No Vertebral Tenderness Extremity: Normal Capillary Refill, Normal Inspection, Normal Range of Motion, Non Tender, No Calf Tenderness, No Pedal Edema Neurologic/Psychiatric: Alert, Oriented x3, No Motor/Sensory Deficits, Normal Mood/Affect Skin: Normal Color, Warm/Dry Lymphatic: No Adenopathy Results Results/Procedures Labs Laboratory Tests 10/19/20 03:27 Patient resulted labs reviewed. Assessment/Plan Admission Diagnosis Assessment: Refractory nausea and vomiting requiring IV fluids and unable to take p.o. meds Malignant hypertension requiring Cardene drip History of iron deficiency anemia History of constipation DM labile HTN AF PHILLIP on CPAP CRI OAC Plan: Supportive care Cardene drip Insulin Cardiology consult Lovenox therapeutic dose Admission Status: Inpatient Order (span 2 midnights) Reason for Inpatient Admission: Malignant hypertension with nausea and vomiting unable to take p.o. meds with hyperglycemia Diagnosis/Problems Diagnosis/Problems (1) Intractable nausea and vomiting Status: Acute (2) Uncontrolled hypertension Status: Acute (3) PHILLIP on CPAP (4) Valvular heart disease (5) Hypertension Status: Chronic (6) Diabetes mellitus Status: Chronic BRITTANY HOOKS DO Oct 19, 2020 08:23
[2020-10-19 08:49] LABS: FREE T4 (FREE THYROXINE) 1.44 NG/DL (0.70-1.48)
[2020-10-19] MEDS ORDERED: FAMOTIDINE 20MG/2ML IV (PEPCID) IV SCH (09:30)
[2020-10-19] MEDS ORDERED: PROMETHAZINE INJ 25 MG/ML (PHENERGAN) AMP IV PRN (09:30)
[2020-10-19] MEDS: niCARdipine IV 50 MG in NS (IVPB) 230 ML IV SCH ×2 (10:05→16:24)
[2020-10-19] MEDS: ONDANSETRON 4 MG/2 ML (SDV) Z0FRAN IV PRN ×2 (10:14→20:21)
[2020-10-19] MEDS: inSUlin ASPART (NovoLOG) 1 UNIT/0.01 ML (CHARGE PER UNIT) SC SCH ×3 (10:32→21:40)
[2020-10-19] MEDS ORDERED: inSUlin (REGULAR) HUMAN 1 UNIT/0.01 ML (CHARGE PER UNIT) SC NR (10:45)
[2020-10-19] MEDS ORDERED: inSUlin (REGULAR) HUMAN 1 UNIT/0.01 ML (CHARGE PER UNIT) SC PRN (11:45)
[2020-10-19] MEDS: NS IV 1000 ML 1,000 ML IV SCH (11:59)
[2020-10-19] MEDS: CATHETER FLUSH 10 ML SYR IV SCH ×2 (13:23→20:24)
--- NOTE | 2020-10-19 15:56 | Consultation-Cardiology ---
HPI-Cardiology Cardiology Consultation: Date of Consultation 10/19/20 Time Seen by a Provider: 14:00 Date of Admission Attending Physician Paty Sen MD Admitting Physician Brittany Hooks DO Consulting Physician CHARLES LINN MD, MA, FACP, FACC, FSCAI, CCDS Physician requesting consult: Dr Hooks HPI: Chief Complaint: CC: Intractable nausea and vomiting Reason for cardiology consultation: Severe hypertension HPI 70 yo woman admitted to Dr Hooks through ER last night for intractable nausea and vomiting of approx 24 hour duration. No cp or palp or syncope or swelling. BP has been persistently high. Gen malaise and weakness present. No focal weakness. Some diarrhea intermittently Review of Systems-Cardiology Review of Systems Constitutional: malaise; No weight loss, No weight gain Eyes: No vision change Ears/Nose/Throat: No ear discharge, No nasal drainage, No recent hearing loss Respiratory: As described under HPI Cardiovascular: As described under HPI Gastrointestinal: As described under HPI Genitourinary: No dysuria, No hematuria, No urine frequency changes Musculoskeletal: No back pain, No joint pain Skin: No rash, No ulcerations Psychiatric/Neurological: No seizure, No focal weakness, No syncope Hematologic: No bleeding abnormalities XBI-[place] Hx Patient Social History Smoking Status: Never a Smoker 2nd Hand Smoke Exposure: No Have you traveled recently?: No Alcohol Use?: No Pt feels they are or have been: No Immunizations Up To Date Tetanus Booster (TDap): Less than 5yrs Date of Pneumonia Vaccine: Feb 21, 2017 Date of Influenza Vaccine: Dec 20, 2019 Past Medical History PMH As described under Assessment. Family Medical History Family Medical History: Reported h/o father and mother having CAD. Sisters x 2 with DM. Family History: Arthritis 19 FATHER 19 MOTHER Asthma 19 FATHER Cardiovascular disease 19 FATHER 19 MOTHER Cataracts 19 MOTHER Deafness or hearing loss 19 FATHER Dementia 19 MOTHER Diabetes mellitus G8 SISTER G8 SISTER Glaucoma 19 FATHER Hypertension 19 MOTHER Prostate cancer 19 FATHER Respiratory disorder 19 FATHER Thyroid disease G8 SISTER Allergies and Home Medications Allergies Coded Allergies: insulin detemir (Verified Allergy, Intermediate, RASH, takes Lantus & Humalog at home, 08/23/18) red bumps at insertion site of injection Has received regular insulin & Novolog during previous hospitalization morphine (Verified Adverse Reaction, Intermediate, Vomiting, 07/05/19) Home Medications Apixaban 5 Mg Tablet, 5 MG PO BID, (Reported) Last Action: Reviewed Cetirizine HCl 10 Mg Tablet, 10 MG PO DAILY, (Reported) Last Action: Reviewed Clonidine HCl 0.2 Mg Tablet, 0.2 MG PO BID, (Reported) Last Action: Reviewed Doxazosin Mesylate 2 Mg Tablet, 4 MG PO BID Prescribed by: BRITTANY HOOKS on 07/10/19 0848 Last Action: Reviewed Enalapril Maleate 10 Mg Tablet, 10 MG PO DAILY, (Reported) Last Action: Reviewed Flaxseed Oil 1,000 Mg Capsule, 1,000 MG PO DAILY, (Reported) Last Action: Reviewed Flecainide Acetate 150 Mg Tablet, 150 MG PO BID, (Reported) Last Action: Reviewed Insulin Glargine,Hum.rec.anlog 300 Unit/1 Ml Insuln.pen, 26 UNIT SQ HS, (Reported) Last Action: Reviewed Insulin Lispro 100 Unit/1 Ml Cartridge, 0 SQ AC, (Reported) Last Action: Reviewed Levothyroxine Sodium 100 Mcg Tablet, 100 MCG PO DAILY, (Reported) Last Action: Reviewed Lutein 6 Mg Capsule, 6 MG PO DAILY, (Reported) Last Action: Reviewed Montelukast Sodium 10 Mg Tablet, 10 MG PO HS, (Reported) Last Action: Reviewed Multivitamin 1 Each Tablet, 1 TAB PO DAILY, (Reported) Last Action: Reviewed Omeprazole 20 Mg Capsule.dr, 20 MG PO DAILY, (Reported) Last Action: Reviewed Pravastatin Sodium 40 Mg Tablet, 40 MG PO DAILY, (Reported) Last Action: Reviewed Patient Home Medication List Home Medication List Reviewed: Yes Physical Exam-Cardiology Physical Exam Vital Signs/I&O 10/19/20 10/19/20 10/19/20 10/19/20 08:46 09:15 09:34 10:00 Pulse 85 87 86 85 Resp 18 21 15 B/P (MAP) 188/85 204/70 (114) 201/67 (111) Pulse Ox 96 97 96 O2 Delivery Room Air Room Air Room Air 10/19/20 10/19/20 10/19/20 10/19/20 10:28 11:00 11:54 12:00 Temp 37.3 Pulse 86 85 Resp 16 20 B/P (MAP) 172/61 (98) 172/61 (98) Pulse Ox 97 95 95 O2 Delivery Room Air Room Air Room Air 10/19/20 10/19/20 10/19/20 10/19/20 12:06 12:06 13:00 14:00 Pulse 85 80 80 Resp 26 23 B/P (MAP) 172/61 (98) 160/55 (84) Pulse Ox 96 93 95 O2 Delivery Room Air Room Air Room Air 10/19/20 15:00 Pulse 77 Resp 25 B/P (MAP) 153/51 (77) Pulse Ox 92 O2 Delivery Room Air Capillary Refill : Less Than 3 Seconds Constitutional: AAO x 3, well-developed, well-nourished HEENT: EOMI, hearing is well preserved; No xanthelasmas are seen Neck: carotid pulses are 2 + bilaterally, with good upstrokes Respiratory: No accessory muscle use; other (good, bilateral air entry) Cardiovascular: regular rate-rhythm, S1 and S2, systolic murmur (soft AARON at card base) Gastrointestinal: No tender; soft; No guarding, No rebound; audible bowel sounds Extremities: No clubbing, No cyanosis, No significant edema Neurologic/Psychiatric: oriented x 3, other (moves all limbs equally) Skin: No rash on exposed areas, No ulcerations on exposed areas Data Review Labs Laboratory Tests 10/19/20 03:05: Glucometer 332H 10/19/20 03:27: White Blood Count 10.8, Red Blood Count 4.08, Hemoglobin 11.6, Hematocrit 36, Mean Corpuscular Volume 89, Mean Corpuscular Hemoglobin 28, Mean Corpuscular Hemoglobin Concent 32, Red Cell Distribution Width 14.6H, Platelet Count 285, Mean Platelet Volume 10.9, Immature Granulocyte % (Auto) 1, Neutrophils (%) (Auto) 92H, Lymphocytes (%) (Auto) 6L, Monocytes (%) (Auto) 1, Eosinophils (%) (Auto) 0, Basophils (%) (Auto) 0, Neutrophils # (Auto) 9.9H, Lymphocytes # (Auto) 0.7L, Monocytes # (Auto) 0.1, Eosinophils # (Auto) 0.0, Basophils # (Auto) 0.0, Immature Granulocyte # (Auto) 0.1, Neutrophils % (Manual) 94, Lymphocytes % (Manual) 5, Monocytes % (Manual) 1, Eosinophils % (Manual) 0, Basophils % (Manual) 0, Band Neutrophils 0, Blood Morphology Comment NORMAL, Sodium Level 140, Potassium Level 4.7, Chloride Level 101, Carbon Dioxide Level 22, Anion Gap 17H, Blood Urea Nitrogen 25H, Creatinine 0.89, Estimat Glomerular Filtration Rate > 60, BUN/Creatinine Ratio 28, Glucose Level 344H, Calcium Level 9.5, Corrected Calcium 9.6, Magnesium Level 2.0, Total Bilirubin 0.8, Aspartate Amino Transf (AST/SGOT) 25, Alanine Aminotransferase (ALT/SGPT) 21, Alkaline Phosphatase 151H, Troponin I < 0.028, Total Protein 8.3H, Albumin 3.9, Amylase Level 54, Lipase 13, Thyroid Stimulating Hormone (TSH) 0.10L, Free Thyroxine 1.44 10/19/20 03:43: Urine Color YELLOW, Urine Clarity CLEAR, Urine pH 5.0, Urine Specific [place] >=1.030, Urine Protein TRACEH, Urine Glucose (UA) 3+H, Urine Ketones 1+H, Urine Nitrite NEGATIVE, Urine Bilirubin NEGATIVE, Urine Urobilinogen 0.2, Urine Leukocyte Esterase NEGATIVE, Urine RBC (Auto) TRACE-I, Urine RBC RARE, Urine WBC RARE, Urine Squamous Epithelial Cells 5-10, Urine Crystals NONE, Urine Bacteria NEGATIVE, Urine Casts NONE, Urine Mucus NEGATIVE, Urine Culture Indicated NO 10/19/20 04:30: SARS-CoV-2 RNA (RT-PCR) Not Detected 10/19/20 05:07: Glucometer 279H 10/19/20 08:18: Glucometer 321H 10/19/20 10:23: Glucometer 405*H 10/19/20 11:02: Glucometer 341H Laboratory Tests 10/19/20 03:27 A/P-Cardiology Assessment/Admission Diagnosis Intractable nausea and vomiting, etiology undetermined, managed by Dr Hooks Severe hypertension Uncontrolled DM II, managed by Dr Hooks S/P total left knee arthroplasty on 07-04-[address] Pagan. Paroxysmal atrial flutter/fibrillation - currently controlled on therapy with flecainide. This has been managed by EP in [place], [place] - Chronic Eliquis anticoag Echo of 04/01/20: LVEF 60-65%. Grade 2 diastolic dysfundtion. LA mod to sev dilated. Mild MR. PASP 50-55 mmHg mmHg No angiographically significant coronary artery disease. Normal global left ventricular systolic function, no significant mitral regurgitation, and normal left ventricular end-diastolic pressure on cardiac catheterization in October 2011. MPI of Jun 06, 2018 showed no evidence of any significant myocardial ischemia or infarction. LVEF 74% Hypothyroidism being treated with thyroid replacement therapy. H/o mild hyperkalemia, cessation of ISATU inhibitors did not help. Her helper metal hanging has advised continuing ISATU-inhib therapy Hyperlipidemia being treated with statins and being followed by her Net Programmer Analyst, Dr. Med Deleon Mild bilat internal carotid dz per u/s of July 2018 Elevated BMI of approx 44 PHILLIP Discussion and Recomendations * Not able to take meds by mouth. This significantly complicates management * Antihypertensive therapy would be parenteral for now * Also parenteral anticoag * Monitor labs * Management of other issue is with CHARLES Romero MD FACP FAC CCDS Oct 19, 2020 15:56
[2020-10-19] MEDS: ENOXAPARIN 100 MG/1 ML (LOVENOX) SYR SC SCH (17:50)
[2020-10-19] MEDS: PANTOPRAZOLE 40 MG (PROTONIX) VIAL IV SCH (20:21)
[2020-10-20] VITALS (11 sets, daily range): BP systolic 125–167; BP diastolic 45–71
[2020-10-20] MEDS: NS IV 1000 ML 1,000 ML IV SCH ×2 (01:43→16:35)
[2020-10-20 02:47] LABS: BASOPHILS % (AUTO) 0 % (0-10); EOSINOPHILS % (AUTO) 0 % (0-10); HEMATOCRIT 33 % (35-52); HEMOGLOBIN 10.6 g/dL (11.5-16.0); LYMPHOCYTES # (AUTO) 1.1 10^3/uL (1.0-4.0); LYMPHOCYTES % (AUTO) 9 % (12-44); MEAN CORPUSCULAR HEMOGLOBIN 29 pg (25-34); MEAN CORPUSCULAR HGB CONC 32 g/dL (32-36); MEAN CORPUSCULAR VOLUME 90 fL (80-99); MEAN PLATELET VOLUME 10.6 fL (9.0-12.2); MONOCYTES # (AUTO) 0.9 10^3/uL (0.0-1.0); MONOCYTES % (AUTO) 7 % (0-12); NEUTROPHILS # (AUTO) 10.4 10^3/uL (1.8-7.8); NEUTROPHILS % (AUTO) 83 % (42-75); PLATELET COUNT 311 10^3/uL (130-400); WHITE BLOOD COUNT 12.5 10^3/uL (4.3-11.0)
[2020-10-20] MEDS: niCARdipine IV 50 MG in NS (IVPB) 230 ML IV SCH (03:00)
[2020-10-20 03:05] LABS: ALBUMIN 3.5 GM/DL (3.2-4.5); CHLORIDE 111 MMOL/L (98-107); POTASSIUM 3.8 MMOL/L (3.6-5.0); SODIUM 146 MMOL/L (135-145)
[2020-10-20 03:06] LABS: CALCIUM 9.1 MG/DL (8.5-10.1)
[2020-10-20 03:07] LABS: GLUCOSE 149 MG/DL (70-105); TOTAL PROTEIN 7.2 GM/DL (6.4-8.2)
[2020-10-20 03:08] LABS: CARBON DIOXIDE 20 MMOL/L (21-32)
[2020-10-20 03:09] LABS: BILIRUBIN,TOTAL 0.8 MG/DL (0.1-1.0)
[2020-10-20 03:11] LABS: ALKALINE PHOSPHATASE 113 U/L (40-136); CREATININE SERUM 0.85 MG/DL (0.60-1.30); GFR ESTIMATED > 60
[2020-10-20 03:12] LABS: BUN/CREATININE RATIO 29
[2020-10-20 03:14] LABS: ALANINE AMINOTRANSFERASE 19 U/L (0-55)
[2020-10-20] MEDS: CATHETER FLUSH 10 ML SYR IV SCH ×3 (05:11→21:11)
[2020-10-20] MEDS: inSUlin ASPART (NovoLOG) 1 UNIT/0.01 ML (CHARGE PER UNIT) SC SCH ×4 (05:11→21:09)
[2020-10-20] MEDS: ENOXAPARIN 100 MG/1 ML (LOVENOX) SYR SC SCH (06:08)
--- NOTE | 2020-10-20 07:02 | Progress Note ---
Subjective Date Seen by a Provider: Oct 20, 2020 Time Seen by a Provider: 09:00 Subjective/Events-last exam Patient much improved Moving to fourth floor Able to eat and drink a bit We will advance diet DC Lovenox since starting Eliquis Check meds and labs Appreciate cardiology Review of Systems General: Fatigue, Malaise Gastrointestinal: Nausea Objective Exam Last Set of Vital Signs Vital Signs Date Time Temp Pulse Resp B/P (MAP) Pulse Ox O2 Delivery O2 Flow Rate FiO2 10/20/20 06:00 86 32 162/57 (92) 98 Nasal Cannula 2.00 10/19/20 19:38 38.0 Capillary Refill : Less Than 3 Seconds I&O Intake and Output 10/20/20 00:00 Intake Total 250 ml Output Total 700 ml Balance -450 ml Intake Oral 0 ml IV Total 250 ml Output Urine Total 700 ml # Voids 2 Daily Weight Change No General: Alert, Oriented X3, Cooperative, No Acute Distress Lungs: Clear to Auscultation, Normal Air Movement Heart: Regular Rate, Normal S1, Normal S2, No Murmurs Neuro: Normal Gait, Normal Speech, Strength at 5/5 X4 Ext, Normal Tone Psych/Mental Status: Mental Status NL, Mood NL Results Lab Laboratory Tests 10/19/20 08:18: Glucometer 321H 10/19/20 10:23: Glucometer 405*H 10/19/20 11:02: Glucometer 341H 10/19/20 17:54: Glucometer 192H 10/19/20 21:40: Glucometer 104 10/20/20 02:18: White Blood Count 12.5H, Red Blood Count 3.71L, Hemoglobin 10.6L, Hematocrit 33L , Mean Corpuscular Volume 90, Mean Corpuscular Hemoglobin 29, Mean Corpuscular Hemoglobin Concent 32, Red Cell Distribution Width 15.5H, Platelet Count 311, Mean Platelet Volume 10.6, Immature Granulocyte % (Auto) 1, Neutrophils (%) (Auto) 83H, Lymphocytes (%) (Auto) 9L, Monocytes (%) (Auto) 7, Eosinophils (%) (Auto) 0, Basophils (%) (Auto) 0, Neutrophils # (Auto) 10.4H, Lymphocytes # (Auto) 1.1, Monocytes # (Auto) 0.9, Eosinophils # (Auto) 0.0, Basophils # (Auto) 0.0, Immature Granulocyte # (Auto) 0.1, Sodium Level 146H, Potassium Level 3.8, Chloride Level 111#H, Carbon Dioxide Level 20L, Anion Gap 15H, Blood Urea Nitrogen 25H, Creatinine 0.85, Estimat Glomerular Filtration Rate > 60, BUN/Creatinine Ratio 29, Glucose Level 149H, Calcium Level 9.1, Corrected Jose cium 9.5, Total Bilirubin 0.8, Aspartate Amino Transf (AST/SGOT) 24, Alanine Aminotransferase (ALT/SGPT) 19, Alkaline Phosphatase 113, Total Protein 7.2, Albumin 3.5 Assessment/Plan Assessment/Plan Assess & Plan/Chief Complaint Assessment: Refractory nausea and vomiting requiring IV fluids and unable to take p.o. meds Malignant hypertension requiring Cardene drip History of iron deficiency anemia History of constipation DM labile HTN AF PHILLIP on CPAP CRI OAC Plan: Supportive care Cardene drip Insulin Cardiology consult Lovenox therapeutic dose 10/20/2020: Transfer to fourth floor Monitor closely Switch over IV meds to oral Diagnosis/Problems Diagnosis/Problems (1) Intractable nausea and vomiting Status: Acute (2) Uncontrolled hypertension Status: Acute (3) PHILLIP on CPAP (4) Valvular heart disease (5) Hypertension Status: Chronic (6) Diabetes mellitus Status: Chronic HEATHER HOOKS DO Oct 20, 2020 07:02
--- NOTE | 2020-10-20 09:13 | Progress Note - Cardiology ---
Cardiology SOAP Progress Note Subjective: Sitting up in bed States nausea is better today No c/o CP, SOB or palpitations Objective: I&O/Vital Signs 10/20/20 10/20/20 10/21/20 10/21/20 20:59 21:19 00:09 04:30 Temp 36.2 36.7 Pulse 68 62 Resp 20 18 B/P (MAP) 144/65 (91) 181/70 (107) Pulse Ox 96 93 96 O2 Delivery Nasal Cannula Nasal Cannula Room Air Room Air O2 Flow Rate 2.00 2.00 10/21/20 07:10 Temp 37.0 Pulse 69 Resp 20 B/P (MAP) 173/72 (105) Pulse Ox 96 O2 Delivery Room Air 10/21/20 00:00 Intake Total 1460 ml Output Total 200 ml Balance 1260 ml Weight (Pounds): 226 Weight (Ounces): 4.0 Weight (Calculated Kilograms): 102.128532 Constitutional: AAO x 3, well-developed, well-nourished Respiratory: No accessory muscle use; other (good, bilateral air entry) Cardiovascular: regular rate-rhythm, S1 and S2, systolic murmur (soft AARON at card base) Gastrointestional: No tender; soft; No guarding, No rebound; audible bowel sounds Extremities: No clubbing, No cyanosis, No significant edema Neurologic/Psychiatric: oriented x 3, other (moves all limbs equally) Skin: No rash on exposed areas, No ulcerations on exposed areas Results/Procedures: Labs Laboratory Tests 10/20/20 11:16: Glucometer 350H 10/20/20 15:19: Glucometer 328H 10/20/20 20:35: Glucometer 251H 10/21/20 05:51: Glucometer 72 10/21/20 06:31: White Blood Count 12.9H, Red Blood Count 3.68L, Hemoglobin 10.5L, Hematocrit 34L , Mean Corpuscular Volume 91, Mean Corpuscular Hemoglobin 29, Mean Corpuscular Hemoglobin Concent 31L, Red Cell Distribution Width 15.5H, Platelet Count 288, Mean Platelet Volume 10.2, Immature Granulocyte % (Auto) 1, Neutrophils (%) (Auto) 78H, Lymphocytes (%) (Auto) 13, Monocytes (%) (Auto) 8, Eosinophils (%) (Auto) 1, Basophils (%) (Auto) 0, Neutrophils # (Auto) 10.0H, Lymphocytes # (Auto) 1.7, Monocytes # (Auto) 1.0, Eosinophils # (Auto) 0.1, Basophils # (Auto) 0.0, Immature Granulocyte # (Auto) 0.1, Sodium Level 144, Potassium Level 3.6, Chloride Level 110H, Carbon Dioxide Level 25, Anion Gap 9, Blood Urea Nitrogen 22H, Creatinine 0.75, Estimat Glomerular Filtration Rate > 60, BUN/Creatinine Ratio 29, Glucose Level 72, Calcium Level 9.5, Corrected Calcium 9.8, Total Bilirubin 0.8, Aspartate Amino Transf (AST/SGOT) 39H, Alanine Aminotransferase (ALT/SGPT) 23, Alkaline Phosphatase 111, Total Protein 7.0, Albumin 3.6 Microbiology 10/19/20 MRSA Screen - Final, Complete MRSA not isolated A/P: Assessment: Intractable nausea and vomiting, etiology undetermined, managed by Dr Felipe Severe hypertension Uncontrolled DM II, managed by Dr Felipe S/P total left knee arthroplasty on 07-04-[address] Pagan. Paroxysmal atrial flutter/fibrillation - currently controlled on therapy with flecainide. This has been managed by EP in [place], [place] - Chronic Eliquis anticoag Echo of 04/01/20: LVEF 60-65%. Grade 2 diastolic dysfundtion. LA mod to sev dilated. Mild MR. PASP 50-55 mmHg mmHg No angiographically significant coronary artery disease. Normal global left ventricular systolic function, no significant mitral regurgitation, and normal left ventricular end-diastolic pressure on cardiac catheterization in October 2011. MPI of Jun 06, 2018 showed no evidence of any significant myocardial ischemia or infarction. LVEF 74% Hypothyroidism being treated with thyroid replacement therapy. H/o mild hyperkalemia, cessation of ISATU inhibitors did not help. Her assessment clinician has advised continuing ISATU-inhib therapy Hyperlipidemia being treated with statins and being followed by her Keyseating Machine Set Up Operator, Dr. Med Deleon Mild bilat internal carotid dz per u/s of July 2018 Elevated BMI of approx 44 PHILLIP Plan: * Not able to take meds by mouth. This significantly complicates management * Antihypertensive therapy would be parenteral for now * Also parenteral anticoag * Restart oral medications when taking oral intake * Monitor labs * Management of other issue is with ANDRIA Carter Oct 20, 2020 09:13
[2020-10-20] MEDS ORDERED: meTOprolol SUCCINATE 100 MG (TOPROL XL) TAB PO NR (09:41)
[2020-10-20] MEDS: PANTOPRAZOLE 40 MG (PROTONIX) VIAL IV SCH ×2 (09:59→21:06)
[2020-10-20] MEDS ORDERED: inSUlin ASPART (NovoLOG) 1 UNIT/0.01 ML (CHARGE PER UNIT) SC SCH (11:00)
[2020-10-20] MEDS ORDERED: ACET-2267 PO (12:26)
[2020-10-20] MEDS ORDERED: DOXA4TAB2 PO (12:26)
[2020-10-20] MEDS ORDERED: POTA10TA PO (12:26)
[2020-10-20] MEDS ORDERED: DICL100G31 TP (12:26)
[2020-10-20] MEDS ORDERED: METO200T48 PO (12:26)
[2020-10-20] MEDS ORDERED: FURO40TA4 PO (12:26)
[2020-10-20] MEDS ORDERED: FLAX10004 PO (12:26)
--- NOTE | 2020-10-20 12:32 | Progress Note - Cardiology ---
Cardiology SOAP Progress Note Subjective: Gen weakness and malaise No cp or palp or syncope Shortness of breath present No swelling Nausea and vomiting have improved Objective: I&O/Vital Signs 10/20/20 10/20/20 10/20/20 10/20/20 01:00 01:40 03:15 04:00 Pulse 83 82 86 85 Resp 30 26 28 B/P (MAP) 159/54 (89) 125/45 (71) 153/56 (88) Pulse Ox 93 95 97 O2 Delivery Nasal Cannula Nasal Cannula Nasal Cannula O2 Flow Rate 2.00 2.00 2.00 10/20/20 10/20/20 10/20/20 10/20/20 04:00 05:00 05:01 06:00 Pulse 87 86 Resp 20 32 B/P (MAP) 158/59 (92) 162/57 (92) Pulse Ox 96 97 98 O2 Delivery Nasal Cannula Nasal Cannula Nasal Cannula Nasal Cannula O2 Flow Rate 2.00 2.00 2.00 2.00 10/20/20 10/20/20 10/20/20 10/20/20 06:28 07:00 07:58 08:00 Temp 37.8 Pulse 88 90 Resp 25 B/P (MAP) 158/55 (89) Pulse Ox 97 96 O2 Delivery Nasal Cannula Nasal Cannula O2 Flow Rate 2.00 2.00 10/20/20 10/20/20 10/20/20 10/20/20 08:00 09:00 10:00 11:00 Pulse 92 91 95 78 Resp 22 23 24 32 B/P (MAP) 156/58 (90) 163/60 (94) 167/55 (92) Pulse Ox 98 97 97 98 O2 Delivery Nasal Cannula Nasal Cannula Nasal Cannula Nasal Cannula O2 Flow Rate 2.00 2.00 2.00 2.00 10/20/20 00:00 Intake Total 250 ml Output Total 700 ml Balance -450 ml Weight (Pounds): 226 Weight (Ounces): 4.0 Weight (Calculated Kilograms): 102.786443 Constitutional: AAO x 3, well-developed, well-nourished Respiratory: other Cardiovascular: regular rate-rhythm, S1 and S2, systolic murmur Gastrointestional: soft, audible bowel sounds Extremities: No clubbing, No cyanosis, No significant edema Neurologic/Psychiatric: oriented x 3, other Skin: No rash on exposed areas, No ulcerations on exposed areas Results/Procedures: Labs Laboratory Tests 10/19/20 17:54: Glucometer 192H 10/19/20 21:40: Glucometer 104 10/20/20 02:18: White Blood Count 12.5H, Red Blood Count 3.71L, Hemoglobin 10.6L, Hematocrit 33L , Mean Corpuscular Volume 90, Mean Corpuscular Hemoglobin 29, Mean Corpuscular Hemoglobin Concent 32, Red Cell Distribution Width 15.5H, Platelet Count 311, Mean Platelet Volume 10.6, Immature Granulocyte % (Auto) 1, Neutrophils (%) (Auto) 83H, Lymphocytes (%) (Auto) 9L, Monocytes (%) (Auto) 7, Eosinophils (%) (Auto) 0, Basophils (%) (Auto) 0, Neutrophils # (Auto) 10.4H, Lymphocytes # (Auto) 1.1, Monocytes # (Auto) 0.9, Eosinophils # (Auto) 0.0, Basophils # (Auto) 0.0, Immature Granulocyte # (Auto) 0.1, Sodium Level 146H, Potassium Level 3.8, Chloride Level 111#H, Carbon Dioxide Level 20L, Anion Gap 15H, Blood Urea Nitrogen 25H, Creatinine 0.85, Estimat Glomerular Filtration Rate > 60, BUN /Creatinine Ratio 29, Glucose Level 149H, Calcium Level 9.1, Corrected Calcium 9.5, Total Bilirubin 0.8, Aspartate Amino Transf (AST/SGOT) 24, Alanine Aminotransferase (ALT/SGPT) 19, Alkaline Phosphatase 113, Total Protein 7.2, Albumin 3.5 10/20/20 11:16: Glucometer 350H Microbiology 10/19/20 MRSA Screen - Final, Complete MRSA not isolated A/P: Assessment: Intractable nausea and vomiting, improved Severe hypertension Uncontrolled DM II, managed by Dr Felipe S/P total left knee arthroplasty on 07-04-[address] Pagan. Paroxysmal atrial flutter/fibrillation - currently controlled on therapy with flecainide. This has been managed by EP in [place], [place] - Chronic Eliquis anticoag Echo of 04/01/20: LVEF 60-65%. Grade 2 diastolic dysfundtion. LA mod to sev dilated. Mild MR. PASP 50-55 mmHg mmHg No angiographically significant coronary artery disease. Normal global left ventricular systolic function, no significant mitral regurgitation, and normal left ventricular end-diastolic pressure on cardiac catheterization in October 2011. MPI of Jun 06, 2018 showed no evidence of any significant myocardial ischemia or infarction. LVEF 74% Hypothyroidism being treated with thyroid replacement therapy. H/o mild hyperkalemia, cessation of ISATU inhibitors did not help. Her biology research assistant has advised continuing ISATU-inhib therapy Hyperlipidemia being treated with statins and being followed by her Well Driller Helper, Dr. Med Deleon Mild bilat internal carotid dz per u/s of July 2018 Elevated BMI of approx 44 PHILLIP Plan: * Change antihypertensives to oral * Anticoag to change to oral tomorrow if she is able to keep oral antihypertensives today * Restart oral medications when taking oral intake * Monitor labs CHARLES LINN MD FACP FAC CCDS Oct 20, 2020 12:32
[2020-10-20] MEDS ORDERED: ACETAMINOPHEN 500 MG TAB (TYLENOL) PO PRN (13:45)
[2020-10-20] MEDS: SIMvastatin 20 MG (ZOCOR) TAB PO SCH (21:07)
[2020-10-20] MEDS: cloNIDine 0.2 MG (CATAPRES) TAB PO SCH (21:09)
[2020-10-20] MEDS: MONTELUKAST 10 MG (SINGULAIR) TAB PO SCH (21:10)
[2020-10-20] MEDS: APIXABAN 5 MG (ELIQUIS) TABLET PO SCH (21:10)
[2020-10-20] MEDS: doxAzosin 2 MG (CARDURA) TAB PO SCH (21:22)
[2020-10-20] MEDS: FLECAINIDE 100 MG (TAMBOCOR) TAB PO SCH (21:23)
[2020-10-21 00:09] VITALS: BP 144/65
[2020-10-21 04:30] VITALS: BP 181/70
[2020-10-21] MEDS: CATHETER FLUSH 10 ML SYR IV SCH ×3 (05:59→21:32)
[2020-10-21] MEDS: inSUlin ASPART (NovoLOG) 1 UNIT/0.01 ML (CHARGE PER UNIT) SC SCH ×4 (05:59→21:32)
[2020-10-21 06:46] LABS: BASOPHILS % (AUTO) 0 % (0-10); EOSINOPHILS # (AUTO) 0.1 10^3/uL (0.0-0.3); EOSINOPHILS % (AUTO) 1 % (0-10); HEMATOCRIT 34 % (35-52); HEMOGLOBIN 10.5 g/dL (11.5-16.0); LYMPHOCYTES # (AUTO) 1.7 10^3/uL (1.0-4.0); LYMPHOCYTES % (AUTO) 13 % (12-44); MEAN CORPUSCULAR HEMOGLOBIN 29 pg (25-34); MEAN CORPUSCULAR HGB CONC 31 g/dL (32-36); MEAN CORPUSCULAR VOLUME 91 fL (80-99); MEAN PLATELET VOLUME 10.2 fL (9.0-12.2); MONOCYTES % (AUTO) 8 % (0-12); NEUTROPHILS % (AUTO) 78 % (42-75); PLATELET COUNT 288 10^3/uL (130-400); WHITE BLOOD COUNT 12.9 10^3/uL (4.3-11.0)
[2020-10-21 07:05] LABS: ALANINE AMINOTRANSFERASE 23 U/L (0-55); ALBUMIN 3.6 GM/DL (3.2-4.5); ALKALINE PHOSPHATASE 111 U/L (40-136); BILIRUBIN,TOTAL 0.8 MG/DL (0.1-1.0); BUN/CREATININE RATIO 29; CALCIUM 9.5 MG/DL (8.5-10.1); CARBON DIOXIDE 25 MMOL/L (21-32); CHLORIDE 110 MMOL/L (98-107); CREATININE SERUM 0.75 MG/DL (0.60-1.30); GFR ESTIMATED > 60; GLUCOSE 72 MG/DL (70-105); POTASSIUM 3.6 MMOL/L (3.6-5.0); SODIUM 144 MMOL/L (135-145)
[2020-10-21 07:10] VITALS: BP 173/72
[2020-10-21] MEDS: LORATADINE (CLARITIN) 10 MG TAB PO SCH (08:13)
[2020-10-21] MEDS: PANTOPRAZOLE 40 MG (PROTONIX) VIAL IV SCH (08:13)
[2020-10-21] MEDS: MULTIVIT W/MINERALS TAB (THERAGRAN M) PO SCH (08:13)
[2020-10-21] MEDS: NS IV 1000 ML 1,000 ML IV SCH ×2 (08:13→19:59)
[2020-10-21] MEDS: ENALAPRIL 10 MG (VASOTEC) TAB PO SCH (08:13)
[2020-10-21] MEDS: APIXABAN 5 MG (ELIQUIS) TABLET PO SCH ×2 (08:13→20:20)
[2020-10-21] MEDS: LEVOTHYROXINE 100 MCG (LEVOTHROID) TAB PO SCH (08:14)
[2020-10-21] MEDS: meTOprolol SUCCINATE 100 MG (TOPROL XL) TAB PO SCH (08:14)
--- NOTE | 2020-10-21 08:28 | Progress Note - Cardiology ---
Cardiology SOAP Progress Note Subjective: States she is feeling much better this morning No c/o CP or SOB No c/o n/v Objective: I&O/Vital Signs 10/24/20 10/24/20 10/24/20 00:05 05:00 07:05 Temp 36.2 36.2 36.5 Pulse 58 54 56 Resp 22 22 20 B/P (MAP) 152/72 (98) 169/57 (94) 160/70 (100) Pulse Ox 98 97 99 O2 Delivery Nasal Cannula Nasal Cannula Nasal Cannula O2 Flow Rate 2.00 2.00 2.00 10/24/20 00:00 Intake Total 1190 ml Output Total 1050 ml Balance 140 ml Weight (Pounds): 226 Weight (Ounces): 4.0 Weight (Calculated Kilograms): 102.017500 Constitutional: AAO x 3, well-developed, well-nourished Respiratory: other Cardiovascular: regular rate-rhythm, S1 and S2, systolic murmur Gastrointestional: soft, audible bowel sounds Extremities: No clubbing, No cyanosis, No significant edema Neurologic/Psychiatric: oriented x 3, other Skin: No rash on exposed areas, No ulcerations on exposed areas Results/Procedures: Labs Laboratory Tests 10/23/20 11:14: Glucometer 210H 10/23/20 16:25: Glucometer 178H 10/23/20 20:02: Glucometer 257H 10/24/20 05:02: Glucometer 124H 10/24/20 05:49: White Blood Count 9.1, Red Blood Count 2.79L, Hemoglobin 8.1L, Hematocrit 26L, Mean Corpuscular Volume 93, Mean Corpuscular Hemoglobin 29, Mean Corpuscular Hemoglobin Concent 31L, Red Cell Distribution Width 14.9H, Platelet Count 194, Mean Platelet Volume 10.6, Immature Granulocyte % (Auto) 1, Neutrophils (%) (Auto) 72, Lymphocytes (%) (Auto) 11L, Monocytes (%) (Auto) 11, Eosinophils (%) (Auto) 5, Basophils (%) (Auto) 0, Neutrophils # (Auto) 6.6, Lymphocytes # (Auto) 1.0, Monocytes # (Auto) 1.0, Eosinophils # (Auto) 0.4H, Basophils # (Auto) 0.0, Immature Granulocyte # (Auto) 0.1, Sodium Level 139, Potassium Level 3.8, Chloride Level 105, Carbon Dioxide Level 26, Anion Gap 8, Blood Urea Nitrogen 12, Creatinine 0.70, Estimat Glomerular Filtration Rate > 60, BUN/Creatinine Ratio 17, Glucose Level 124H, Calcium Level 8.3L, Corrected Calcium 9.2, Total Bilirubin 0.8, Aspartate Amino Transf (AST/SGOT) 16, Alanine Aminotransferase (ALT/SGPT) 20, Alkaline Phosphatase 102, Total Protein 6.0L, Albumin 2.9L Microbiology 10/19/20 MRSA Screen - Final, Complete MRSA not isolated A/P: Assessment: Intractable nausea and vomiting, improved Severe hypertension Uncontrolled DM II, managed by Dr Felipe S/P total left knee arthroplasty on 07-04-[address] Pagan. Paroxysmal atrial flutter/fibrillation - currently controlled on therapy with flecainide. This has been managed by EP in [place], [place] - Chronic Eliquis anticoag Echo of 04/01/20: LVEF 60-65%. Grade 2 diastolic dysfundtion. LA mod to sev dilated. Mild MR. PASP 50-55 mmHg mmHg No angiographically significant coronary artery disease. Normal global left ventricular systolic function, no significant mitral regurgitation, and normal left ventricular end-diastolic pressure on cardiac catheterization in October 2011. MPI of Jun 06, 2018 showed no evidence of any significant myocardial ischemia or infarction. LVEF 74% Hypothyroidism being treated with thyroid replacement therapy. H/o mild hyperkalemia, cessation of ISATU inhibitors did not help. Her aluminum boat inspector has advised continuing ISATU-inhib therapy Hyperlipidemia being treated with statins and being followed by her Basket Braider, Dr. Med Deleon Mild bilat internal carotid dz per u/s of July 2018 Elevated BMI of approx 44 PHILLIP Plan: * BP not well controlled change antihypertensives to oral since she is taking in oral intake - resume home antihypertensive regimen * Restart oral anticoag and stop Lovenox * Monitor labs ANDRIA LARRY Oct 21, 2020 08:28
[2020-10-21] MEDS ORDERED: NON-FORMULARY MEDICATION 1 EA EA (Flaxseed Oil 1,000 MG) PO SCH (09:00)
[2020-10-21] MEDS ORDERED: LUTEIN 6 MG PO SCH (09:00)
[2020-10-21] MEDS ORDERED: PANTOPRAZOLE 20 MG TABLET (PROTONIX) PO SCH (09:00)
[2020-10-21] MEDS: FLECAINIDE 100 MG (TAMBOCOR) TAB PO SCH ×2 (09:09→20:20)
[2020-10-21] MEDS: doxAzosin 2 MG (CARDURA) TAB PO SCH ×2 (09:09→20:20)
[2020-10-21] MEDS: cloNIDine 0.2 MG (CATAPRES) TAB PO SCH ×2 (09:09→20:19)
--- NOTE | 2020-10-21 10:47 | Progress Note ---
Subjective Date Seen by a Provider: Oct 21, 2020 Time Seen by a Provider: 10:30 Subjective/Events-last exam Patient lethargic Has not used her CPAP for a while ABG checked showing PaO2 of 72 No evidence of any CO2 narcosis PT and OT ordered Unsure neck step of the plan After rounds and before this note was completed she suffered an ankle fracture when it gave out when she was walking into the bathroom Dr. Pagan was consulted was able to reduce the fracture put in a brace and will repair it tomorrow at noon I did go in and talk to the patient after this happened and will order Dilaudid pain medication Overnight oxygen study revealed the need for oxygen at night Review of Systems General: Fatigue Musculoskeletal: foot pain Neurological: Confusion Objective Exam Last Set of Vital Signs Vital Signs Date Time Temp Pulse Resp B/P (MAP) Pulse Ox O2 Delivery O2 Flow Rate FiO2 10/21/20 08:00 Nasal Cannula 2.00 10/21/20 07:10 37.0 69 20 173/72 (105) 96 Capillary Refill : Less Than 3 Seconds I&O Intake and Output 10/21/20 00:00 Intake Total 1660 ml Output Total 350 ml Balance 1310 ml Intake Oral 1460 ml IV Total 200 ml Output Urine Total 350 ml # Voids 6 General: Alert, Cooperative, No Acute Distress Lungs: Clear to Auscultation Heart: Regular Rate Psych/Mental Status: Mental Status NL Results Lab Laboratory Tests 10/20/20 11:16: Glucometer 350H 10/20/20 15:19: Glucometer 328H 10/20/20 20:35: Glucometer 251H 10/21/20 05:51: Glucometer 72 10/21/20 06:31: White Blood Count 12.9H, Red Blood Count 3.68L, Hemoglobin 10.5L, Hematocrit 34L , Mean Corpuscular Volume 91, Mean Corpuscular Hemoglobin 29, Mean Corpuscular Hemoglobin Concent 31L, Red Cell Distribution Width 15.5H, Platelet Count 288, Mean Platelet Volume 10.2, Immature Granulocyte % (Auto) 1, Neutrophils (%) (Auto) 78H, Lymphocytes (%) (Auto) 13, Monocytes (%) (Auto) 8, Eosinophils (%) (Auto) 1, Basophils (%) (Auto) 0, Neutrophils # (Auto) 10.0H, Lymphocytes # (Auto) 1.7, Monocytes # (Auto) 1.0, Eosinophils # (Auto) 0.1, Basophils # (Auto) 0.0, Immature Granulocyte # (Auto) 0.1, Sodium Level 144, Potassium Level 3.6, C hloride Level 110H, Carbon Dioxide Level 25, Anion Gap 9, Blood Urea Nitrogen 22H, Creatinine 0.75, Estimat Glomerular Filtration Rate > 60, BUN/Creatinine Ratio 29, Glucose Level 72, Calcium Level 9.5, Corrected Calcium 9.8, Total Bilirubin 0.8, Aspartate Amino Transf (AST/SGOT) 39H, Alanine Aminotransferase (ALT/SGPT) 23, Alkaline Phosphatase 111, Total Protein 7.0, Albumin 3.6 Microbiology 10/19/20 MRSA Screen - Final, Complete MRSA not isolated Assessment/Plan Assessment/Plan Assess & Plan/Chief Complaint Assessment: Refractory nausea and vomiting requiring IV fluids and unable to take p.o. meds Malignant hypertension requiring Cardene drip History of iron deficiency anemia History of constipation DM labile HTN AF PHILLIP on CPAP CRI OAC Right ankle fracture occurring during ambulation to bathroom Plan: Supportive care Cardene drip Insulin Cardiology consult Lovenox therapeutic dose 10/20/2020: Transfer to fourth floor Monitor closely Switch over IV meds to oral 10/22/2020: Ankle fracture repair tomorrow Monitor closely Diagnosis/Problems Diagnosis/Problems (1) Intractable nausea and vomiting Status: Acute (2) Uncontrolled hypertension Status: Acute (3) PHILLIP on CPAP (4) Valvular heart disease (5) Hypertension Status: Chronic (6) Diabetes mellitus Status: Chronic HEATHER HOOKS DO Oct 21, 2020 10:47
[2020-10-21] MEDS ORDERED: amLODIPine 5 MG (NORVASC) TAB PO ONE (11:00)
[2020-10-21 11:13] LABS: ABG BASE EXCESS -0.9 MMOL/L (-2.5-2.5); ABG OXYGEN SATURATION 95 % (94-100); ABG PCO2 42 MMHG (35-45); ABG PH 7.37 (7.37-7.43); ABG PO2 72 MMHG (79-93); ABG TCO2 24.9 MMOL/L (21.0-31.0)
[2020-10-21 11:15] LABS: ALLENS TEST YES-POS; INSPIRED O2 ROOM AIR; VENTILATOR NO
[2020-10-21 11:28] VITALS: BP 176/76
--- NOTE | 2020-10-21 12:00 | Occupational Therapy Eval ---
OT Evaluation-General/PLF Medical Diagnosis Admission Date Oct 19, 2020 at 07:51 Medical Diagnosis: severe n/v Onset Date: Oct 19, 2020 Therapy Diagnosis Therapy Diagnosis: Decreased ADL status Height/Weight Height (Feet): 5 Height (Inches): 5.00 Weight (Pounds): 226 Weight (Ounces): 4.0 Precautions Precautions/Isolations: Fall Prevention, Standard Precautions Referral Physician: Destinee Referral Reason: Activity Tolerance, Self Care, Evaluation/Treatment, Strengthening/ROM Medical History Pertinent Medical History: Atrial Fib, DM Additional Medical History a fib, chronic edema, HTN, neuropathy, GERD, IDDM, arth Current History severe n/v with malignant HTN/ hyperglycemia per notes. Reviewed History: Yes Social History Home: Single Level Current Living Status: Spouse ADL-Prior Level of Function SCALE: Activities may be completed with or without assistive devices. 2-Dhitijfkby-tkpztyq completes the activity by him/herself with no assistance from a helper. 5-Set-up or Clean-up Assistance-helper sets up or cleans up; patient completes activity. Bryant assists only prior to or following the activity. 4-Supervision or Touching Assistance-helper provides verbal cues and/or touching/steadying and/or contact guard assistance as patient completes activity. Assistance may be provided throughout the activity or intermittently. 3-Partial/Moderate Assistance-helper does LESS THAN HALF the effort. Bryant lifts, holds or supports trunk or limbs, but provides less than half the effort. 2-Substantial/Maximal Assistance-helper does MORE THAN HALF the effort. Bryant lifts or holds trunk or limbs and provides more than half the effort. 2-Cwnqqraxb-nfyjvl does ALL the effort. Patient does none of the effort to complete the activity. Or, the assistance of 2 or more helpers is required for the patient to complete the activity. If activity was not attempted, code reason: 7-Patient Refused. 9-Not Applicable-not attempted and the patient did not perform the activity before the current illness, exacerbation or injury. 10-Not Attempted due to Environmental Limitations-(lack of equipment, weather restraints, etc.). 88-Not Attempted due to Medical Conditions or Safety Concerns. ADL PLOF Comments IND with use of cane outside of home during IADLs. IND ADLs in home with walk in shower, sc, gb outside shower. Self Care: Independent Functional Cognition: Independent DME/Equipment: Bath Chair, Grab Bars, Shower Occupation: retired Drive Self: No OT Current Status Subjective Pt AxO, upright in bed, calling for dietary. Pt agrees to tx, denies pain, states no n/v this morning. Hooked to IV. Mental Status/Objective Patient Orientation: Person, Place, Situation, Normal For Age Attachments: IV Current Glasses/Contacts: Yes Hearing Aids: No Dentures/Partials: No Hand Dominance: Right Upper Extremity ROM WFL BUE Upper Extremity Coordination WFL BUE Upper Extremity Sensation WFL BUE Upper Extremity Strength WFL BUE (4/5) ADL-Treatment Eating (QC): 6 Oral Hygiene (QC): 6 Lower Body Dressing (QC): 4 (per clinical judgment pt able to complete though SBA may be needed intermittently) On/Off Footwear (QC): 6 Other Treatments Pt bed mob with increased time, sits EOB. No c/o dizziness/ lightheadedness. Pt sit to stand CGA, ambulate to chair with SBA. pt positions self in chair with good control. Completes MMT/ ROM and footwear donning/ doffing IND. Pt denies issues or concerns with d/c home. Pt does not require skilled OT at this time, d/c. Pt educated on this, left in recliner with all needs met, call light in reach. Education OT Patient Education: Correct positioning, Progress toward Goal/Update tx plan, Purpose of tx/functional activities Teaching Recipient: Patient Teaching Methods: Demonstration, Discussion Response to Teaching: Verbalize Understanding, Return Demonstration OT Snf Goals Snf Goals 1=Demonstrate adherence to instructed precautions during ADL tasks. 2=Patient will verbalize/demonstrate understanding of assistive devices/modifications for ADL. 3=Patient will improve strength/tolerance for activity to enable patient to perform ADL's. OT Education/Plan Problem List/Assessment Assessment: No Skilled OT Needs ID'd Discharge Recommendations Plan/Recommendations: Discharge/Goals Met Therapy Discharge Recommendati: Home & Family Treatment Plan/Plan of Care Treatment,Training & Education: Yes Patient would benefit from OT for education, treatment and training to promote independence in ADL's, mobility, safety and/or upper extremity function for ADL's. Plan of Care: OTHER (eval and d/c) Treatment Duration: Oct 21, 2020 Frequency: 1 time per week (eval and d/c.) Time/GCodes Start Time: 11:42 Stop Time: 11:52 Total Time Billed (hr/min): 10 Billed Treatment Time 1, EVL d/cMAXI LEZAMA OTR Oct 21, 2020 12:00
--- NOTE | 2020-10-21 14:11 | Physical Therapy Evaluation ---
PT Evaluation-General Medical Diagnosis Admission Date Oct 19, 2020 at 07:51 Medical Diagnosis: severe n/v Onset Date: Oct 19, 2020 Therapy Diagnosis Therapy Diagnosis: debility Height/Weight Height (Feet): 5 Height (Inches): 5.00 Weight (Pounds): 226 Weight (Ounces): 4.0 Precautions Precautions/Isolations: Fall Prevention, Standard Precautions Referral Physician: Destinee Reason for Referral: Evaluation/Treatment Medical History Pertinent Medical History: Atrial Fib, DM, HTN, Neuropathy Current History ER from home secondary to N&V Reviewed History: Yes Social History Home: Single Level Current Living Status: Spouse Entry Into Home: Stairs With Railing PT Steps Into Home: 3 Prior Prior Level of Function SCALE: Activities may be completed with or without assistive devices. 4-Gmfieaglpl-kgseozk completes the activity by him/herself with no assistance from a helper. 5-Set-up or Clean-up Assistance-helper sets up or cleans up; patient completes activity. Stafford assists only prior to or following the activity. 4-Supervision or Touching Assistance-helper provides verbal cues and/or touching/steadying and/or contact guard assistance as patient completes activity. Assistance may be provided throughout the activity or intermittently. 3-Partial/Moderate Assistance-helper does LESS THAN HALF the effort. Stafford lifts, holds or supports trunk or limbs, but provides less than half the effort. 2-Substantial/Maximal Assistance-helper does MORE THAN HALF the effort. Stafford lifts or holds trunk or limbs and provides more than half the effort. 3-Jnlogrfts-bnyoii does ALL the effort. Patient does none of the effort to compl ete the activity. Or, the assistance of 2 or more helpers is required for the patient to complete the activity. If activity was not attempted, code reason: 7-Patient Refused. 9-Not Applicable-not attempted and the patient did not perform the activity before the current illness, exacerbation or injury. 10-Not Attempted due to Environmental Limitations-(lack of equipment, weather restraints, etc.). 88-Not Attempted due to Medical Conditions or Safety Concerns. Bed Mobility: 6 Transfers (B,C,W/C): 6 Gait: 6 Stairs: 6 Indoor Mobility (Ambulation): Independent Stairs: Independent Prior Devices Use: Walker PT Evaluation-Current Subjective Patient agrees to PT. No c/o. Patient states she hopes to go home today. Objective Patient Orientation: Normal For Age Attachments: Central Line ROM/Strength ROM Lower Extremities bilateral LE WFL Strength Lower Extremities 4-/5 grossly bilateral LE Integumentary/Posture Integumentary refer to nursing notes Bowel Incontinence: No Bladder Incontinence: No Posture WFL Neuromuscular (Tone, Coordination, Reflexes) grossly intact Sensory Vision: Wears Glasses Hearing: Functional Hand Dominance: Right Transfers Roll Left to Right (QC): 6 Sit to Lying (QC): 6 Lying to Sitting/Side of Bed(Q: 6 Sit to Stand (QC): 6 Chair/Sat-cq-Umcjw Xfer(QC): 6 Gait Does the Patient Walk?: Yes Mode of Locomotion: Walk Anticipated Mode of Locomotion: Walk Walk 10 feet (QC): 6 Walk 50 ft with 2 Turns(QC): 6 Walk 150 ft (QC): 6 Distance: 225' Gait Assistive Device: FWW Comments/Gait Description safe and functional with no deviation Balance Sitting Static: Normal Sitting Dynamic: Normal Standing Static: Normal Standing Dynamic: Normal Picking up an Object (QC): 6 Assessment/Needs 70 y.o. female, will be seen short term by skilled PT to address functional strength and mobility to ensure safe return to home with spouse at maximum LOF. Rehab Potential: Fair PT Alf Goals Jigmaker Goals PT Alf Goals Time Frame: Oct 25, 2020 Roll Left & Right (QC): 6 Sit to Lying (QC): 6 Lying-Sitting on Side/Bed(QC): 6 Sit to Stand (QC): 6 Chair/Krw-yq-Okkfg Xfer(QC): 6 Toilet Transfer (QC): 6 Walk 10 feet (QC): 6 Walk 50ft with 2 Turns (QC): 6 Walk 150 ft (QC): 6 PT Plan Problem List Problem List: Activity Tolerance Treatment/Plan Treatment Plan: Continue Plan of Care Treatment Plan: Education, Functional Activity Devika, Functional Strength, Gait, Safety, Therapeutic Exercise, Transfers Treatment Duration: Oct 25, 2020 Frequency: 5 times per week Estimated Hrs Per Day: .25 hour per day Patient and/or Family Agrees t: Yes Discharge Recommendations Therapy Discharge Recommendati: Home & Family Time/GCodes Time In: 1350 Time Out: 1406 Total Billed Treatment Time: 16 Total Billed Treatment 1 visit EVMod 16 KAIT Franklin PT Oct 21, 2020 14:11
--- NOTE | 2020-10-21 14:28 | Progress Note - Cardiology ---
Cardiology SOAP Progress Note Subjective: N/v have resolved No focal weakness Some gen weakness No cp or palp or syncope or shortness of breath Objective: I&O/Vital Signs 10/21/20 10/21/20 10/21/20 10/21/20 04:30 07:10 08:00 11:28 Temp 36.7 37.0 36.8 Pulse 62 69 68 Resp 18 20 18 B/P (MAP) 181/70 (107) 173/72 (105) 176/76 (109) Pulse Ox 96 96 96 O2 Delivery Room Air Room Air Nasal Cannula Room Air O2 Flow Rate 2.00 10/21/20 00:00 Intake Total 1460 ml Output Total 200 ml Balance 1260 ml Weight (Pounds): 226 Weight (Ounces): 4.0 Weight (Calculated Kilograms): 102.317309 Constitutional: AAO x 3, well-developed, well-nourished Respiratory: other Cardiovascular: regular rate-rhythm, S1 and S2, systolic murmur Gastrointestional: soft, audible bowel sounds Extremities: No clubbing, No cyanosis, No significant edema Neurologic/Psychiatric: oriented x 3, other Skin: No rash on exposed areas, No ulcerations on exposed areas Results/Procedures: Labs Laboratory Tests 10/20/20 15:19: Glucometer 328H 10/20/20 20:35: Glucometer 251H 10/21/20 05:51: Glucometer 72 10/21/20 06:31: White Blood Count 12.9H, Red Blood Count 3.68L, Hemoglobin 10.5L, Hematocrit 34L , Mean Corpuscular Volume 91, Mean Corpuscular Hemoglobin 29, Mean Corpuscular Hemoglobin Concent 31L, Red Cell Distribution Width 15.5H, Platelet Count 288, Mean Platelet Volume 10.2, Immature Granulocyte % (Auto) 1, Neutrophils (%) (Auto) 78H, Lymphocytes (%) (Auto) 13, Monocytes (%) (Auto) 8, Eosinophils (%) (Auto) 1, Basophils (%) (Auto) 0, Neutrophils # (Auto) 10.0H, Lymphocytes # (Auto) 1.7, Monocytes # (Auto) 1.0, Eosinophils # (Auto) 0.1, Basophils # (Auto) 0.0, Immature Granulocyte # (Auto) 0.1, Sodium Level 144, Potassium Level 3.6, Chloride Level 110H, Carbon Dioxide Level 25, Anion Gap 9, Blood Urea Nitrogen 22H, Creatinine 0.75, Estimat Glomerular Filtration Rate > 60, BUN/Creatinine Ratio 29, Glucose Level 72, Calcium Level 9.5, Corrected Calcium 9.8, Total Bili syed 0.8, Aspartate Amino Transf (AST/SGOT) 39H, Alanine Aminotransferase (ALT /SGPT) 23, Alkaline Phosphatase 111, Total Protein 7.0, Albumin 3.6 10/21/20 11:06: Blood Gas Puncture Site L RAD, Blood Gas Patient Temperature 37.0, Arterial Blood pH 7.37, Arterial Blood Partial Pressure CO2 42, Arterial Blood Partial Pressure O2 72L, Arterial Blood HCO3 24, Arterial Blood Total CO2 24.9, Arterial Blood Oxygen Saturation 95, Arterial Blood Base Excess -0.9, Sumit Test YES-POS, Blood Gas Ventilator Setting NO, Blood Gas Inspired Oxygen ROOM AIR 10/21/20 11:08: Ammonia 27 10/21/20 11:25: Glucometer 187H Microbiology 10/19/20 MRSA Screen - Final, Complete MRSA not isolated Laboratory Tests 10/20/20 02:18 10/21/20 06:31 A/P: Assessment: Intractable nausea and vomiting, resolved Severe hypertension Uncontrolled DM II, managed by Dr Felipe S/P total left knee arthroplasty on 07-04-[address] Pagan. Paroxysmal atrial flutter/fibrillation - currently controlled on therapy with flecainide. This has been managed by EP in [place], [place] - Chronic Eliquis anticoag Echo of 04/01/20: LVEF 60-65%. Grade 2 diastolic dysfundtion. LA mod to sev dilated. Mild MR. PASP 50-55 mmHg mmHg No angiographically significant coronary artery disease. Normal global left ventricular systolic function, no significant mitral regurgitation, and normal left ventricular end-diastolic pressure on cardiac catheterization in October 2011. MPI of Jun 06, 2018 showed no evidence of any significant myocardial ischemia or infarction. LVEF 74% Hypothyroidism being treated with thyroid replacement therapy. H/o mild hyperkalemia, cessation of ISATU inhibitors did not help. Her pharmacy data analyst has advised continuing ISATU-inhib therapy Hyperlipidemia being treated with statins and being followed by her Component Overhaul Operator, Dr. Med Deleon Mild bilat internal carotid dz per u/s of July 2018 Elevated BMI of approx 44 PHILLIP Plan: * BP not well controlled; change antihypertensives to oral since she is taking in oral intake - resume home antihypertensive regimen * Restart oral anticoag and stop Lovenox * Monitor labs CHARLES LINN MD FACP [facility] CCDS Oct 21, 2020 14:28
[2020-10-21 16:00] VITALS: BP 157/80
[2020-10-21] MEDS ORDERED: HYDROmorphone 2 MG/ML VIAL (DILAUDID) ONE (18:12)
[2020-10-21] MEDS: HYDROmorphone 2 MG/ML VIAL (DILAUDID) IVP PRN ×2 (18:15→19:54)
--- NOTE | 2020-10-21 18:50 | Diagnostic Imaging Report ---
EXAMINATION: Right ankle 2 views. HISTORY: Fall COMPARISON: None available. FINDINGS: Ankle mortise is disrupted. There is a displaced distal fibular fracture with overriding. There is tibiotalar dislocation. There is extensive edema in the lower extremity. 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 There is a small heel spur and enthesophytes at the insertion of the Achilles tendon. IMPRESSION: 1. Unstable fracture dislocation of the right ankle with a distal right fibular fracture and dislocation of the tibiotalar joint. Dictated by: Dictated on workstation # [id number]
[2020-10-21 20:02] VITALS: BP 167/67
[2020-10-21] MEDS: SIMvastatin 20 MG (ZOCOR) TAB PO SCH (20:20)
[2020-10-21] MEDS: MONTELUKAST 10 MG (SINGULAIR) TAB PO SCH (20:20)
[2020-10-21] MEDS: PANTOPRAZOLE 40 MG (PROTONIX) TAB PO SCH (20:20)
--- NOTE | 2020-10-21 23:14 | CONSULTATION REPORT ---
DATE OF SERVICE: 10/21/2020 INPATIENT CONSULTATION REASON FOR CONSULTATION: Right ankle fracture dislocation. HISTORY OF PRESENT ILLNESS: The patient is a 70-year-old female who had been admitted for intractable nausea and vomiting. She was getting up this evening to go to the bathroom. She fell and complained of ankle pain. She had gross deformity of her ankle. Radiographs were obtained, which revealed a fracture dislocation involving the lateral and medial malleoli. She denies paresthesias. She denies antecedent pain. She did not lose consciousness and had no antecedent symptoms. PHYSICAL EXAMINATION: Her right ankle is laterally displaced with external rotation. She has symmetric pulses. She has intact dorsiflexion and plantarflexion of the toes. Sensation is intact to light touch throughout. RADIOGRAPHS: Reveal a lateral malleolus fracture with a medial malleolar fracture as well with lateral dislocation of the talus. IMPRESSION: Right ankle bimalleolar fracture with dislocation. PLAN: Closed reduction was performed. The splint was applied. We will plan for open reduction and internal fixation of right bimalleolar ankle fracture tomorrow. We discussed risks, benefits, options, ramifications and recovery at length with the patient. She understands and wishes to proceed. Job ID: [id number] DocumentID: [id number] Dictated Date: 10/21/2020 20:16:11 Director Of Search Engine Marketing Date: 10/21/2020 23:13:43 Dictated By: ROSALINA VALDES MD
[2020-10-22] VITALS (13 sets, daily range): BP systolic 132–182; BP diastolic 47–81
[2020-10-22] MEDS: HYDROmorphone 2 MG/ML VIAL (DILAUDID) IVP PRN ×2 (05:01→08:25)
[2020-10-22] MEDS: CATHETER FLUSH 10 ML SYR IV SCH ×3 (05:49→21:05)
[2020-10-22] MEDS: inSUlin ASPART (NovoLOG) 1 UNIT/0.01 ML (CHARGE PER UNIT) SC SCH ×4 (06:18→21:40)
--- NOTE | 2020-10-22 08:05 | Physical Therapy Progress Note ---
Therapy Progress Note Patient was evaluated yesterday and has since then had an ankle fx and is having surgery today. Will DC from therapy for now and await new orders after surgery. CHARLOTTE STEINER PT Oct 22, 2020 08:05
[2020-10-22] MEDS: LORATADINE (CLARITIN) 10 MG TAB PO SCH (08:16)
[2020-10-22] MEDS: doxAzosin 2 MG (CARDURA) TAB PO SCH ×2 (08:16→19:57)
[2020-10-22] MEDS: cloNIDine 0.2 MG (CATAPRES) TAB PO SCH (08:16)
[2020-10-22] MEDS: APIXABAN 5 MG (ELIQUIS) TABLET PO SCH ×2 (08:16→19:57)
[2020-10-22] MEDS: amLODIPine 5 MG (NORVASC) TAB PO SCH (08:16)
[2020-10-22] MEDS: FLECAINIDE 100 MG (TAMBOCOR) TAB PO SCH ×2 (08:17→19:56)
[2020-10-22] MEDS: ENALAPRIL 10 MG (VASOTEC) TAB PO SCH (08:17)
[2020-10-22] MEDS: MULTIVIT W/MINERALS TAB (THERAGRAN M) PO SCH (08:17)
[2020-10-22] MEDS: LEVOTHYROXINE 100 MCG (LEVOTHROID) TAB PO SCH (08:17)
[2020-10-22] MEDS: PANTOPRAZOLE 40 MG (PROTONIX) TAB PO SCH ×2 (08:17→19:57)
[2020-10-22] MEDS: meTOprolol SUCCINATE 100 MG (TOPROL XL) TAB PO SCH ×3 (08:17→21:40)
[2020-10-22 08:23] LABS: BASOPHILS % (AUTO) 0 % (0-10); EOSINOPHILS # (AUTO) 0.4 10^3/uL (0.0-0.3); EOSINOPHILS % (AUTO) 6 % (0-10); HEMATOCRIT 30 % (35-52); HEMOGLOBIN 9.3 g/dL (11.5-16.0); LYMPHOCYTES # (AUTO) 1.1 10^3/uL (1.0-4.0); LYMPHOCYTES % (AUTO) 15 % (12-44); MEAN CORPUSCULAR HEMOGLOBIN 29 pg (25-34); MEAN CORPUSCULAR HGB CONC 31 g/dL (32-36); MEAN CORPUSCULAR VOLUME 92 fL (80-99); MEAN PLATELET VOLUME 10.5 fL (9.0-12.2); MONOCYTES # (AUTO) 0.8 10^3/uL (0.0-1.0); MONOCYTES % (AUTO) 11 % (0-12); NEUTROPHILS # (AUTO) 4.9 10^3/uL (1.8-7.8); NEUTROPHILS % (AUTO) 67 % (42-75); PLATELET COUNT 235 10^3/uL (130-400); WHITE BLOOD COUNT 7.3 10^3/uL (4.3-11.0)
[2020-10-22 08:49] LABS: ALANINE AMINOTRANSFERASE 23 U/L (0-55); ALBUMIN 3.2 GM/DL (3.2-4.5); ALKALINE PHOSPHATASE 99 U/L (40-136); BILIRUBIN,TOTAL 0.9 MG/DL (0.1-1.0); BUN/CREATININE RATIO 27; CALCIUM 8.5 MG/DL (8.5-10.1); CARBON DIOXIDE 26 MMOL/L (21-32); CHLORIDE 107 MMOL/L (98-107); CREATININE SERUM 0.79 MG/DL (0.60-1.30); GFR ESTIMATED > 60; GLUCOSE 221 MG/DL (70-105); POTASSIUM 4.1 MMOL/L (3.6-5.0); SODIUM 139 MMOL/L (135-145); TOTAL PROTEIN 6.4 GM/DL (6.4-8.2)
--- NOTE | 2020-10-22 09:33 | Progress Note - Cardiology ---
Cardiology SOAP Progress Note Subjective: Lying in bed Reports fell yesterday and fractured her right ankle She is awaiting surgery by Dr. Pagan No c/o n/v/d No c/o CP or palpitations No c/o dyspnea at this time Objective: I&O/Vital Signs 10/24/20 10/24/20 10/24/20 00:05 05:00 07:05 Temp 36.2 36.2 36.5 Pulse 58 54 56 Resp 22 22 20 B/P (MAP) 152/72 (98) 169/57 (94) 160/70 (100) Pulse Ox 98 97 99 O2 Delivery Nasal Cannula Nasal Cannula Nasal Cannula O2 Flow Rate 2.00 2.00 2.00 10/24/20 00:00 Intake Total 1190 ml Output Total 1050 ml Balance 140 ml Weight (Pounds): 226 Weight (Ounces): 4.0 Weight (Calculated Kilograms): 102.209834 Constitutional: AAO x 3, well-developed, well-nourished Respiratory: other Cardiovascular: regular rate-rhythm, S1 and S2, systolic murmur Gastrointestional: soft, audible bowel sounds Extremities: other (Right ankle with dressing in place); No clubbing, No cyanosis, No significant edema Neurologic/Psychiatric: oriented x 3, other Skin: No rash on exposed areas, No ulcerations on exposed areas Results/Procedures: Labs Laboratory Tests 10/23/20 11:14: Glucometer 210H 10/23/20 16:25: Glucometer 178H 10/23/20 20:02: Glucometer 257H 10/24/20 05:02: Glucometer 124H 10/24/20 05:49: White Blood Count 9.1, Red Blood Count 2.79L, Hemoglobin 8.1L, Hematocrit 26L, Mean Corpuscular Volume 93, Mean Corpuscular Hemoglobin 29, Mean Corpuscular Hemoglobin Concent 31L, Red Cell Distribution Width 14.9H, Platelet Count 194, Mean Platelet Volume 10.6, Immature Granulocyte % (Auto) 1, Neutrophils (%) (Auto) 72, Lymphocytes (%) (Auto) 11L, Monocytes (%) (Auto) 11, Eosinophils (%) (Auto) 5, Basophils (%) (Auto) 0, Neutrophils # (Auto) 6.6, Lymphocytes # (Auto) 1.0, Monocytes # (Auto) 1.0, Eosinophils # (Auto) 0.4H, Basophils # (Auto) 0.0, Immature Granulocyte # (Auto) 0.1, Sodium Level 139, Potassium Level 3.8, Chloride Level 105, Carbon Dioxide Level 26, Anion Gap 8, Blood Urea Nitrogen 12, Creatinine 0.70, Estimat Glomerular Filtration Rate > 60, BUN/Creatinine Ratio 17, Glucose Level 124H, Calcium Level 8.3L, Corrected Calcium 9.2, Total Bilirubin 0.8, Aspartate Amino Transf (AST/SGOT) 16, Alanine Aminotransferase (ALT/SGPT) 20, Alkaline Phosphatase 102, Total Protein 6.0L, Albumin 2.9L Microbiology 10/19/20 MRSA Screen - Final, Complete MRSA not isolated A/P: Assessment: Intractable nausea and vomiting, resolved Severe hypertension Uncontrolled DM II, managed by Dr Felipe S/P total left knee arthroplasty on 07-04-[address] Pagan. Paroxysmal atrial flutter/fibrillation - currently controlled on therapy with flecainide. This has been managed by EP in [place], [place] - Chronic Eliquis anticoag Echo of 04/01/20: LVEF 60-65%. Grade 2 diastolic dysfundtion. LA mod to sev dilated. Mild MR. PASP 50-55 mmHg mmHg No angiographically significant coronary artery disease. Normal global left ventricular systolic function, no significant mitral regurgitation, and normal left ventricular end-diastolic pressure on cardiac catheterization in October 2011. MPI of Jun 06, 2018 showed no evidence of any significant myocardial ischemia or infarction. LVEF 74% Hypothyroidism being treated with thyroid replacement therapy. H/o mild hyperkalemia, cessation of ISATU inhibitors did not help. Her agile developer has advised continuing ISATU-inhib therapy Hyperlipidemia being treated with statins and being followed by her Granite Fabricator, Dr. Med Deleon Mild bilat internal carotid dz per u/s of July 2018 Elevated BMI of approx 44 PHILLIP Plan: * BP not well controlled - stop clonidine to reduce risk of bradycardia and increase BB to 100mg BID * Recent right ankle fracture for which she is awaiting surgical repair by Dr. Pagan * OAC is currently being withheld - we advise OAC be resumed MAU following surgery when deemed surgically safe * Monitor labs ANDRIA LARRY [facility] Oct 22, 2020 09:33
[2020-10-22] MEDS ORDERED: ACETAMINOPHEN 325 MG TABLET PO PRN (10:00)
[2020-10-22] MEDS ORDERED: fentaNYL INJ 100 MCG/2 ML AMP IVP PRN (10:00)
[2020-10-22] MEDS ORDERED: ONDANSETRON 4 MG/2 ML (SDV) Z0FRAN IVP PRN ×2 (10:00→13:45)
[2020-10-22] MEDS: NS IV 1000 ML 1,000 ML IV SCH (10:11)
[2020-10-22] MEDS ORDERED: BUPIVACAINE 0.5% 30 ML (SENSORCAINE) VIAL ONE (10:11)
--- NOTE | 2020-10-22 11:34 | Progress Note ---
Subjective Date Seen by a Provider: Oct 22, 2020 Time Seen by a Provider: 10:00 Subjective/Events-last exam Patient awaiting surgery for right ankle fracture Denies any type of new problems Pain is well controlled on Dilaudid Labs reviewed Blood sugars variable Blood pressure stable No BM since she arrived in the hospital this past weekend so we will monitor that closely Review of Systems Musculoskeletal: foot pain Objective Exam Last Set of Vital Signs Vital Signs Date Time Temp Pulse Resp B/P (MAP) Pulse Ox O2 Delivery O2 Flow Rate FiO2 10/22/20 08:00 Nasal Cannula 2.00 10/22/20 07:06 36.6 59 20 170/72 (104) 99 Capillary Refill : Less Than 3 Seconds I&O Intake and Output 10/22/20 00:00 Intake Total 2240 ml Output Total 200 ml Balance 2040 ml Intake Oral 1540 ml IV Total 700 ml Output Urine Total 200 ml # Voids 4 # Urine Diapers 2 General: Alert, Oriented X3, Cooperative, No Acute Distress Lungs: Clear to Auscultation Heart: Regular Rate Psych/Mental Status: Mental Status NL Results Lab Laboratory Tests 10/21/20 16:30: Glucometer 196H 10/21/20 19:46: Glucometer 47*L 10/21/20 21:12: Glucometer 103 10/22/20 05:19: Glucometer 184H 10/22/20 08:10: White Blood Count 7.3, Red Blood Count 3.24L, Hemoglobin 9.3L, Hematocrit 30L, Mean Corpuscular Volume 92, Mean Corpuscular Hemoglobin 29, Mean Corpuscular Hemoglobin Concent 31L, Red Cell Distribution Width 15.4H, Platelet Count 235, Mean Platelet Volume 10.5, Immature Granulocyte % (Auto) 1, Neutrophils (%) (Auto) 67, Lymphocytes (%) (Auto) 15, Monocytes (%) (Auto) 11, Eosinophils (%) (Auto) 6, Basophils (%) (Auto) 0, Neutrophils # (Auto) 4.9, Lymphocytes # (Auto) 1.1, Monocytes # (Auto) 0.8, Eosinophils # (Auto) 0.4H, Basophils # (Auto) 0.0, Immature Granulocyte # (Auto) 0.0, Sodium Level 139, Potassium Level 4.1, Chloride Level 107, Carbon Dioxide Level 26, Anion Gap 6, Blood Urea Nitrogen 21H, Creatinine 0.79, Estimat Glomerular Filtration Rate > 60, BUN/Creatinine Ratio 27, Glucose Level 221H, Calcium Level 8.5, Corrected Calcium 9.1, Total Bilirubin 0.9, Aspartate Amino Transf (AST/SGOT) 29, Alanine Aminotransferase (ALT/SGPT) 23, Alkaline Phosphatase 99, Total Protein 6.4, Albumin 3.2 10/22/20 11:29: Glucometer 229H Microbiology 10/19/20 MRSA Screen - Final, Complete MRSA not isolated Assessment/Plan Assessment/Plan Assess & Plan/Chief Complaint Assessment: Refractory nausea and vomiting requiring IV fluids and unable to take p.o. meds Malignant hypertension requiring Cardene drip History of iron deficiency anemia History of constipation DM labile HTN AF PHILLIP on CPAP CRI OAC Right ankle fracture occurring during ambulation to bathroom Plan: Supportive care Cardene drip Insulin Cardiology consult Lovenox therapeutic dose 10/20/2020: Transfer to fourth floor Monitor closely Switch over IV meds to oral 10/21/2020: Ankle fracture repair tomorrow Monitor closely 10/22/2020: Ankle fracture repair today Monitor labs Monitor sugar Start bowel regimen postoperatively [facility] [facility] since she will be nonweightbearing Diagnosis/Problems Diagnosis/Problems (1) Intractable nausea and vomiting Status: Acute (2) Uncontrolled hypertension Status: Acute (3) PHILLIP on CPAP (4) Valvular heart disease (5) Hypertension Status: Chronic (6) Diabetes mellitus Status: Chronic HEATHER HOOKS DO Oct 22, 2020 11:34
[2020-10-22] MEDS ORDERED: fentaNYL INJ 100 MCG/2 ML AMP ONE (11:50)
[2020-10-22] MEDS ORDERED: MIDAZOLAM 2 MG/2 ML (VERSED) VIAL ONE (11:50)
--- NOTE | 2020-10-22 12:00 | Progress Note-Pre Operative ---
Pre-Operative Progress Note H&P Reviewed The H&P was reviewed, patient examined and no changes noted. Date Seen by Provider: Oct 22, 2020 Time Seen by Provider: 11:59 Date H&P Reviewed: Oct 22, 2020 Time H&P Reviewed: 11:59 Pre-Operative Diagnosis: right bimalleolar ankle fracture ROSALINA VALDES MD Oct 22, 2020 11:59
--- NOTE | 2020-10-22 12:01 | Progress Note-Post Operative ---
Post-Operative Progess Note Surgeon (s)/High School Principal (s) Surgeon ROSALINA VALDES MD High School Principal: Dillon Darnell Pre-Operative Diagnosis right bimalleolar ankle fracture Post-Operative Diagnosis right bimalleolar ankle fracture Procedure & Operative Findings Date of Procedure 10/22/20 Procedure Performed/Findings open reduction and internal fixation of the right lateral and medial malleoli Anesthesia Type GETA Estimated Blood Loss Estimated blood loss (mL): 50 ml Specimens/Packing Specimens Removed none Packing: none ROSALINA VALDES MD Oct 22, 2020 12:00
[2020-10-22] MEDS: ceFAZolin 2 GM IV Premixed 50 ML IV NR ×2 (12:10→12:53)
[2020-10-22] MEDS ORDERED: ceFAZolin INJECTION 1,000 MG ONE ×2 (12:12)
--- NOTE | 2020-10-22 12:37 | Progress Note - Cardiology ---
Cardiology SOAP Progress Note Subjective: Non-syncopal fall while ambulating in the bathroom yesterday No cp or palp or syncope or shortness of breath No n/v/d Objective: I&O/Vital Signs 10/22/20 10/22/20 10/22/20 10/22/20 04:32 07:06 07:06 08:00 Temp 36.6 36.6 Pulse 60 59 Resp 22 20 B/P (MAP) 172/81 (111) 170/72 (104) Pulse Ox 98 99 O2 Delivery Nasal Cannula Nasal Cannula Nasal Cannula O2 Flow Rate 2.00 2.00 2.00 2.00 10/22/20 11:18 Temp 37.0 Pulse 61 Resp 20 B/P (MAP) 160/80 (106) Pulse Ox 95 O2 Delivery Nasal Cannula O2 Flow Rate 2.00 10/22/20 00:00 Intake Total 2040 ml Output Total 200 ml Balance 1840 ml Weight (Pounds): 226 Weight (Ounces): 4.0 Weight (Calculated Kilograms): 102.955849 Constitutional: AAO x 3, well-developed, well-nourished Respiratory: other Cardiovascular: regular rate-rhythm, S1 and S2, systolic murmur Gastrointestional: soft, audible bowel sounds Extremities: other (Right ankle with dressing in place); No clubbing, No cyanosis, No significant edema Neurologic/Psychiatric: oriented x 3, other Skin: No rash on exposed areas, No ulcerations on exposed areas Results/Procedures: Labs Laboratory Tests 10/21/20 16:30: Glucometer 196H 10/21/20 19:46: Glucometer 47*L 10/21/20 21:12: Glucometer 103 10/22/20 05:19: Glucometer 184H 10/22/20 08:10: White Blood Count 7.3, Red Blood Count 3.24L, Hemoglobin 9.3L, Hematocrit 30L, Mean Corpuscular Volume 92, Mean Corpuscular Hemoglobin 29, Mean Corpuscular Hemoglobin Concent 31L, Red Cell Distribution Width 15.4H, Platelet Count 235, Mean Platelet Volume 10.5, Immature Granulocyte % (Auto) 1, Neutrophils (%) (Auto) 67, Lymphocytes (%) (Auto) 15, Monocytes (%) (Auto) 11, Eosinophils (%) (Auto) 6, Basophils (%) (Auto) 0, Neutrophils # (Auto) 4.9, Lymphocytes # (Auto) 1.1, Monocytes # (Auto) 0.8, Eosinophils # (Auto) 0.4H, Basophils # (Auto) 0.0, Immature Granulocyte # (Auto) 0.0, Sodium Level 139, Potassium Level 4.1, Chloride Level 107, Carbon Dioxide Level 26, Anion Gap 6, Blood Urea Nitrogen 21H, Creatinine 0.79, Estimat Glomerular Filtration Rate > 60, BUN/Creatinine Ratio 27, Glucose Level 221H, Calcium Level 8.5, Corrected Calcium 9.1, Total Bilirubin 0.9, Aspartate Amino Transf (AST/SGOT) 29, Alanine Aminotransferase (ALT/SGPT) 23, Alkaline Phosphatase 99, Total Protein 6.4, Albumin 3.2 10/22/20 11:29: Glucometer 229H Microbiology 10/19/20 MRSA Screen - Final, Complete MRSA not isolated A/P: Assessment: R bimalleolar fracture due to a nonsyncopal fall on 10/21/20, treated with open reduction and internal fixation on 10/22/20 Intractable nausea and vomiting, resolved Severe hypertension Uncontrolled DM II, managed by Dr Felipe S/P total left knee arthroplasty on 07-04-[address] Pagan. Paroxysmal atrial flutter/fibrillation - currently controlled on therapy with flecainide. This has been managed by EP in [place], [place] - Chronic Eliquis anticoag Echo of 04/01/20: LVEF 60-65%. Grade 2 diastolic dysfundtion. LA mod to sev dilated. Mild MR. PASP 50-55 mmHg mmHg No angiographically significant coronary artery disease. Normal global left ventricular systolic function, no significant mitral regurgitation, and normal left ventricular end-diastolic pressure on cardiac catheterization in October 2011. MPI of Jun 06, 2018 showed no evidence of any significant myocardial ischemia or infarction. LVEF 74% Hypothyroidism being treated with thyroid replacement therapy. H/o mild hyperkalemia, cessation of ISATU inhibitors did not help. Her sports coordinator has advised continuing ISATU-inhib therapy Hyperlipidemia being treated with statins and being followed by her Research Laboratory Specialist, Dr. Med Deleon Mild bilat internal carotid dz per u/s of July 2018 Elevated BMI of approx 44 PHILLIP Plan: * BP not well controlled - stop clonidine to reduce risk of bradycardia and increase BB to 100mg BID * OAC is currently being withheld - we advise OAC be resumed MAU following surgery when deemed surgically safe * Monitor labs CHARLES LINN MD FACP [facility]S Oct 22, 2020 12:37
[2020-10-22] MEDS ORDERED: ceFAZolin INJECTION 1,000 MG in WATER (STERILE) FOR INJECTION 10 ML IV ONE ×4 (13:00)
[2020-10-22] MEDS ORDERED: ONDANSETRON 4 MG/2 ML (SDV) Z0FRAN ONE (13:10)
[2020-10-22] MEDS ORDERED: SEVOFLURANE (ULTANE) 15 ML INHAL SOLN ONE (13:10)
[2020-10-22] MEDS ORDERED: LIDOCAINE PF 2% 5 ML (XYLOCAINE) VIAL ONE (13:10)
[2020-10-22] MEDS ORDERED: proPOfol 200 MG/20 ML (DIPRIVAN) VIAL IV ONE (13:10)
--- NOTE | 2020-10-22 13:35 | Anesthesia-General Post-Op ---
General Patient Condition Mental Status/LOC: Same as Preop Cardiovascular: Satisfactory Nausea/Vomiting: Absent Respiratory: Satisfactory Pain: Controlled Complications: Absent Post Op Complications Complications None Follow Up Care/Instructions Patient Instructions None needed. Anesthesia/Patient Condition Patient Condition Patient is doing well, no complaints, stable vital signs, no apparent adverse anesthesia problems. No complications reported per nursing. DONNA HUGHES CRNA Oct 22, 2020 13:35
[2020-10-22] MEDS ORDERED: fentaNYL INJ 100 MCG/2 ML AMP IVP ONE (13:45)
--- NOTE | 2020-10-22 13:49 | Diagnostic Imaging Report ---
EXAMINATION: Fluoroscopy at 12:56 PM. INDICATION: Ankle pain. TECHNIQUE: Fluoroscopic assistance was provided for Dr. Pagan during his ORIF procedure of the right ankle. 20.8 seconds of fluoroscopy time was utilized. AP and lateral spot films of the right ankle were received from the OR. FINDINGS: The prior exam performed on 10/21/2020 noted an unstable fracture/dislocation of the right ankle joint with a distal right fibular fracture and dislocation of the tibiotalar articulation. In the interval since the prior exam, the patient has undergone a surgical procedure. There is now an orthopedic plate and screw fixation device along the lateral aspect of the distal fibula. Two orthopedic fixation screws are also seen coursing obliquely through the medial malleolus of the distal tibia. The orthopedic hardware appears to be in good position and the main fracture fragments are near anatomic in alignment. The ankle mortise is no longer widened and the dislocation of the tibiotalar articulation has been reduced. IMPRESSION: Fluoroscopic assistance was provided for Dr. Pagan. Dictated by: Dictated on workstation # [id number]
[2020-10-22] MEDS ORDERED: LACTATED RINGERS 1,000 ML IV ONE (13:58)
[2020-10-22] MEDS: oxyCODONE/APAP 5/325MG (PERCOCET 5) TABLET PO PRN ×2 (15:41→19:57)
--- NOTE | 2020-10-22 19:20 | OPERATIVE REPORT ---
DATE OF SERVICE: 10/22/2020 PREOPERATIVE DIAGNOSIS: Right bimalleolar ankle fracture. POSTOPERATIVE DIAGNOSIS: Right bimalleolar ankle fracture. PROCEDURES PERFORMED: 1. Open reduction and internal fixation of the right lateral malleolus. 2. Open reduction and internal fixation of the right medial malleolus. SURGEON: Levar Valdes MD. EMR ANALYST: Dillon Darnell, who assisted throughout the procedure and closed the incisions. ANESTHESIA: General endotracheal. TOURNIQUET TIME: Approximately 63 minutes at 300 mmHg. ESTIMATED BLOOD LOSS: Minimal. DRAINS: None. COMPLICATIONS: None. POSTOPERATIVE PLAN: Toe touch weightbearing right lower extremity. The patient was transferred to the recovery room awake and stable condition. STATEMENT OF MEDICAL NECESSITY: The patient is a 70-year-old female, who had been admitted for intractable nausea and vomiting last evening. While going to the [facility], she fell and sustained a fracture dislocation of the right ankle involving the medial and lateral malleoli. She underwent closed reduction and splint application last evening with planned operative fixation today. DESCRIPTION OF PROCEDURE: After risks and benefits of procedure were discussed and questions were answered, informed consent was signed and placed on chart, the operative site was confirmed in the preoperative holding area initialed by the surgeon. The patient was then transferred to the operating room and after adequate levels of general endotracheal anesthetic were obtained, a timeout was called, confirming the operative site. The right lower extremity was prepped and draped in the usual sterile fashion. With the leg elevated, tourniquet was inflated to 300 mmHg. A lateral approach was utilized to the distal fibula. The underlying soft tissues were carefully dissected. The fracture site was identified and a 7-hole one-third tubular plate was placed with three cortical screws proximally and one cortical and two cancellous screws distally, all with good purchase. Fluoroscopy in the AP, lateral and oblique planes revealed anatomic reduction of the fracture. The ankle was stressed and there was no widening of the mortise. An incision was then made medially over the medial malleolus and the underlying soft tissues were carefully dissected. The medial malleolus was reduced under direct visualization. The posterior tibialis tendon had to be retracted for reduction and following reduction and fixation, the posterior tibialis tendon moved freely with no capture noted. The articular surface demonstrated no abnormalities. A two 4.0 partially threaded cancellous cannulated screws were placed with a good purchase obtained. Fluoroscopy in the AP and lateral planes revealed anatomic reduction of the fracture with a well-placed hardware. The ankle was stressed under live time fluoroscopy with no widening of the mortise or syndesmosis noted. The articular surface was again visualized and no hardware penetration was noted. The posterior tibialis tendon moved freely. The wounds were copiously irrigated, 0 Vicryl was used to close the deep subcutaneous layer laterally, 2-0 Vicryl was used to close both superficial subcutaneous layers and 4-0 nylon in a horizontal mattress fashion was used to close the incisions. The incisions were infiltrated with plain Marcaine. A soft dressing and posterior splint were applied. Tourniquet was deflated. The patient was transferred to the recovery room awake and in stable condition. Job ID: [id number] DocumentID: [id number] Dictated Date: 10/22/2020 13:24:59 Powerhouse Mechanic Apprentice Date: 10/22/2020 19:20:09 Dictated By: LEVAR VALDES MD
[2020-10-22] MEDS: MONTELUKAST 10 MG (SINGULAIR) TAB PO SCH (19:56)
[2020-10-22] MEDS: SIMvastatin 20 MG (ZOCOR) TAB PO SCH (19:57)
[2020-10-22] MEDS: DOCUSATE SODIUM 100 MG (COLACE) CAP PO SCH (21:39)
[2020-10-22] MEDS: polyethylene glycoL POWDER 17 GM (MIRALAX) PACK PO SCH (21:39)
[2020-10-22] MEDS: SENNA W/DOCUSATE (SENOKOT S) TABLET PO SCH (21:39)
[2020-10-23] VITALS (7 sets, daily range): BP systolic 156–191; BP diastolic 62–89
[2020-10-23] MEDS: NS IV 1000 ML 1,000 ML IV SCH ×2 (01:37→15:58)
[2020-10-23] MEDS: oxyCODONE/APAP 5/325MG (PERCOCET 5) TABLET PO PRN ×5 (04:32→20:03)
[2020-10-23 04:45] LABS: BASOPHILS % (AUTO) 0 % (0-10); EOSINOPHILS # (AUTO) 0.5 10^3/uL (0.0-0.3); EOSINOPHILS % (AUTO) 5 % (0-10); HEMATOCRIT 28 % (35-52); LYMPHOCYTES # (AUTO) 0.9 10^3/uL (1.0-4.0); LYMPHOCYTES % (AUTO) 9 % (12-44); MEAN CORPUSCULAR HEMOGLOBIN 29 pg (25-34); MEAN CORPUSCULAR HGB CONC 32 g/dL (32-36); MEAN CORPUSCULAR VOLUME 91 fL (80-99); MEAN PLATELET VOLUME 10.6 fL (9.0-12.2); MONOCYTES # (AUTO) 1.1 10^3/uL (0.0-1.0); MONOCYTES % (AUTO) 12 % (0-12); NEUTROPHILS # (AUTO) 6.7 10^3/uL (1.8-7.8); NEUTROPHILS % (AUTO) 73 % (42-75); PLATELET COUNT 207 10^3/uL (130-400); WHITE BLOOD COUNT 9.2 10^3/uL (4.3-11.0)
[2020-10-23 04:54] LABS: ALBUMIN 3.1 GM/DL (3.2-4.5); CHLORIDE 105 MMOL/L (98-107); POTASSIUM 4.2 MMOL/L (3.6-5.0); SODIUM 138 MMOL/L (135-145)
[2020-10-23 04:55] LABS: CALCIUM 8.3 MG/DL (8.5-10.1)
[2020-10-23 04:56] LABS: GLUCOSE 134 MG/DL (70-105); TOTAL PROTEIN 6.6 GM/DL (6.4-8.2)
[2020-10-23 04:57] LABS: CARBON DIOXIDE 23 MMOL/L (21-32)
[2020-10-23 04:58] LABS: BILIRUBIN,TOTAL 0.8 MG/DL (0.1-1.0)
[2020-10-23 05:00] LABS: ALKALINE PHOSPHATASE 91 U/L (40-136); GFR ESTIMATED > 60
[2020-10-23 05:01] LABS: BUN/CREATININE RATIO 19
[2020-10-23 05:03] LABS: ALANINE AMINOTRANSFERASE 21 U/L (0-55)
[2020-10-23] MEDS: inSUlin ASPART (NovoLOG) 1 UNIT/0.01 ML (CHARGE PER UNIT) SC SCH ×4 (05:06→20:14)
[2020-10-23] MEDS: CATHETER FLUSH 10 ML SYR IV SCH ×3 (05:07→20:16)
[2020-10-23] MEDS: APIXABAN 5 MG (ELIQUIS) TABLET PO SCH ×2 (08:00→20:03)
[2020-10-23] MEDS: PANTOPRAZOLE 40 MG (PROTONIX) TAB PO SCH ×2 (08:00→20:03)
[2020-10-23] MEDS: meTOprolol SUCCINATE 100 MG (TOPROL XL) TAB PO SCH ×2 (08:00→20:03)
[2020-10-23] MEDS: SENNA W/DOCUSATE (SENOKOT S) TABLET PO SCH ×2 (08:00→20:03)
[2020-10-23] MEDS: LEVOTHYROXINE 100 MCG (LEVOTHROID) TAB PO SCH (08:03)
[2020-10-23] MEDS: DOCUSATE SODIUM 100 MG (COLACE) CAP PO SCH ×2 (08:03→20:03)
[2020-10-23] MEDS: FLECAINIDE 100 MG (TAMBOCOR) TAB PO SCH ×2 (08:03→20:03)
[2020-10-23] MEDS: LORATADINE (CLARITIN) 10 MG TAB PO SCH (08:03)
[2020-10-23] MEDS: MULTIVIT W/MINERALS TAB (THERAGRAN M) PO SCH (08:03)
[2020-10-23] MEDS: amLODIPine 5 MG (NORVASC) TAB PO SCH (08:03)
[2020-10-23] MEDS: doxAzosin 2 MG (CARDURA) TAB PO SCH ×2 (08:03→20:02)
[2020-10-23] MEDS: ENALAPRIL 10 MG (VASOTEC) TAB PO SCH ×3 (08:03→20:03)
[2020-10-23] MEDS: polyethylene glycoL POWDER 17 GM (MIRALAX) PACK PO SCH ×2 (08:04→20:02)
--- NOTE | 2020-10-23 08:08 | Progress Note ---
Standard Progress Note Progress Notes/Assess & Plan Date Seen by a Provider: Oct 23, 2020 Time Seen by a Provider: 08:07 Progress/Assessment & Plan no complaints denies paresthesias Vital Signs Date Time Temp Pulse Resp B/P (MAP) Pulse Ox O2 Delivery O2 Flow Rate FiO2 10/23/20 03:41 36.6 62 22 168/62 (97) 93 Room Air 10/23/20 01:30 156/72 (100) 10/23/20 00:24 36.4 64 20 190/89 (122) 94 Room Air 10/22/20 20:15 Nasal Cannula 2.00 10/22/20 20:00 37.3 69 18 132/60 (84) 94 Room Air 10/22/20 16:00 36.6 64 20 133/75 (94) 94 Nasal Cannula 2.00 10/22/20 15:56 Room Air 10/22/20 14:20 Room Air 10/22/20 14:20 36.6 16 182/68 (106) 100 Room Air 10/22/20 14:10 16 171/67 (101) 100 Nasal Cannula 2 10/22/20 14:10 Nasal Cannula 2 10/22/20 14:00 16 182/77 (112) 100 Nasal Cannula 2 10/22/20 13:55 OxyMask 3 10/22/20 13:50 16 181/79 (113) 100 OxyMask 3 10/22/20 13:40 OxyMask 5 10/22/20 13:40 20 145/47 (79) 100 OxyMask 5 10/22/20 13:30 37.1 20 141/55 (83) 100 OxyMask 8 10/22/20 13:29 OxyMask 8 10/22/20 13:29 37.1 20 141/55 (83) 100 OxyMask 8 10/22/20 11:18 37.0 61 20 160/80 (106) 95 Nasal Cannula 2.00 I & O 10/23/20 07:00 Intake Total 860 ml Output Total 1250 ml Balance -390 ml Laboratory Tests Test 10/22/20 08:10 10/22/20 11:29 10/22/20 16:32 10/22/20 21:06 Range/Units White Blood Count 7.3 4.3-11.0 10^3/uL Red Blood Count 3.24 L 3.80-5.11 10^6/uL Hemoglobin 9.3 L 11.5-16.0 g/dL Hematocrit 30 L 35-52 % Mean Corpuscular Volume 92 80-99 fL Mean Corpuscular Hemoglobin 29 25-34 pg Mean Corpuscular Hemoglobin Concent 31 L 32-36 g/dL Red Cell Distribution Width 15.4 H 10.0-14.5 % Platelet Count 235 130-400 10^3/uL Mean Platelet Volume 10.5 9.0-12.2 fL Immature Granulocyte % (Auto) 1 % Neutrophils (%) (Auto) 67 42-75 % Lymphocytes (%) (Auto) 15 12-44 % Monocytes (%) (Auto) 11 0-12 % Eosinophils (%) (Auto) 6 0-10 % Basophils (%) (Auto) 0 0-10 % Neutrophils # (Auto) 4.9 1.8-7.8 10^3/uL Lymphocytes # (Auto) 1.1 1.0-4.0 10^3/uL Monocytes # (Auto) 0.8 0.0-1.0 10^3/uL Eosinophils # (Auto) 0.4 H 0.0-0.3 10^3/uL Basophils # (Auto) 0.0 0.0-0.1 10^3/uL Immature Granulocyte # (Auto) 0.0 0.0-0.1 10^3/uL Sodium Level 139 135-145 MMOL/L Potassium Level 4.1 3.6-5.0 MMOL/L Chloride Level 107 98-107 MMOL/L Carbon Dioxide Level 26 21-32 MMOL/L Anion Gap 6 5-14 MMOL/L Blood Urea Nitrogen 21 H 7-18 MG/DL Creatinine 0.79 0.60-1.30 MG/DL Estimat Glomerular Filtration Rate > 60 BUN/Creatinine Ratio 27 Glucose Level 221 H 70-105 MG/DL Calcium Level 8.5 8.5-10.1 MG/DL Corrected Calcium 9.1 8.5-10.1 MG/DL Total Bilirubin 0.9 0.1-1.0 MG/DL Aspartate Amino Transf (AST/SGOT) 29 5-34 U/L Alanine Aminotransferase (ALT/SGPT) 23 0-55 U/L Alkaline Phosphatase 99 40-136 U/L Total Protein 6.4 6.4-8.2 GM/DL Albumin 3.2 3.2-4.5 GM/DL Glucometer 229 H 312 H 273 H 70-110 MG/DL Test 10/23/20 04:35 Range/Units White Blood Count 9.2 4.3-11.0 10^3/uL Red Blood Count 3.08 L 3.80-5.11 10^6/uL Hemoglobin 9.0 L 11.5-16.0 g/dL Hematocrit 28 L 35-52 % Mean Corpuscular Volume 91 80-99 fL Mean Corpuscular Hemoglobin 29 25-34 pg Mean Corpuscular Hemoglobin Concent 32 32-36 g/dL Red Cell Distribution Width 14.9 H 10.0-14.5 % Platelet Count 207 130-400 10^3/uL Mean Platelet Volume 10.6 9.0-12.2 fL Immature Granulocyte % (Auto) 1 % Neutrophils (%) (Auto) 73 42-75 % Lymphocytes (%) (Auto) 9 L 12-44 % Monocytes (%) (Auto) 12 0-12 % Eosinophils (%) (Auto) 5 0-10 % Basophils (%) (Auto) 0 0-10 % Neutrophils # (Auto) 6.7 1.8-7.8 10^3/uL Lymphocytes # (Auto) 0.9 L 1.0-4.0 10^3/uL Monocytes # (Auto) 1.1 H 0.0-1.0 10^3/uL Eosinophils # (Auto) 0.5 H 0.0-0.3 10^3/uL Basophils # (Auto) 0.0 0.0-0.1 10^3/uL Immature Granulocyte # (Auto) 0.1 0.0-0.1 10^3/uL Sodium Level 138 135-145 MMOL/L Potassium Level 4.2 3.6-5.0 MMOL/L Chloride Level 105 98-107 MMOL/L Carbon Dioxide Level 23 21-32 MMOL/L Anion Gap 10 5-14 MMOL/L Blood Urea Nitrogen 13 7-18 MG/DL Creatinine 0.70 0.60-1.30 MG/DL Estimat Glomerular Filtration Rate > 60 BUN/Creatinine Ratio 19 Glucose Level 134 H 70-105 MG/DL Calcium Level 8.3 L 8.5-10.1 MG/DL Corrected Calcium 9.0 8.5-10.1 MG/DL Total Bilirubin 0.8 0.1-1.0 MG/DL Aspartate Amino Transf (AST/SGOT) 28 5-34 U/L Alanine Aminotransferase (ALT/SGPT) 21 0-55 U/L Alkaline Phosphatase 91 40-136 U/L Total Protein 6.6 6.4-8.2 GM/DL Albumin 3.1 L 3.2-4.5 GM/DL RLE-intact DF and PF of toes. brisk cap refill. Intact sensatioin to light touch throughout s/p R ankle ORIF PT/OT will likely require IRU due to weakness and poor mobility ROSALINA VALDES MD Oct 23, 2020 08:08
--- NOTE | 2020-10-23 10:18 | Physical Therapy Daily Note ---
PT Daily Note-Current Subjective Patient agrees to PT. Reports 7/10 right ankle pain with meds issued. Pain Numeric Pain Scale: 6 Location: Right Location Body Site: Ankle Pain Description: Acute Mental Status Patient Orientation: Normal For Age Attachments: IV Transfers SCALE: Activities may be completed with or without assistive devices. 0-Hxtoebekqe-zhcdfwt completes the activity by him/herself with no assistance from a helper. 5-Set-up or Clean-up Assistance-helper sets up or cleans up; patient completes activity. [place] assists only prior to or following the activity. 4-Supervision or Touching Assistance-helper provides verbal cues and/or touching/steadying and/or contact guard assistance as patient completes activity. Assistance may be provided throughout the activity or intermittently. 3-Partial/Moderate Assistance-helper does LESS THAN HALF the effort. [place] lifts, holds or supports trunk or limbs, but provides less than half the effort. 2-Substantial/Maximal Assistance-helper does MORE THAN HALF the effort. [place] lifts or holds trunk or limbs and provides more than half the effort. 6-Hhewaaalx-sbmtji does ALL the effort. Patient does none of the effort to complete the activity. Or, the assistance of 2 or more helpers is required for the patient to complete the activity. If activity was not attempted, code reason: 7-Patient Refused. 9-Not Applicable-not attempted and the patient did not perform the activity before the current illness, exacerbation or injury. 10-Not Attempted due to Environmental Limitations-(lack of equipment, weather restraints, etc.). 88-Not Attempted due to Medical Conditions or Safety Concerns. Sit to Lying (QC): 2 Lying to Sitting/Side of Bed(Q: 2 attempted to perform sit to stand/patient unable to perform due to morbid obesity and overall low tone from inactivity PLOF Weight Bearing Right Lower Extremity: Right Touch Toe Bearing Left Lower Extremity: Left Full Weight Bearing Patient unable to comply with TTWB right LE due to morbid obesity and low tone from inactivity PLOF Gait Training Does the Patient Walk?: No and Walking Goal IS indicated Exercises Supine Ex: Quad Set, Heel Slides, Straight leg raise, Hip abd/add Supine Reps: 12 (AAROM/patient unable to perform AROM due to weakness and inability to perform PLOF) Seated Therapy Exercises: Long arc quads Seated Reps: 12 (AAROM) Assessment Patient requires time to complete all functional tasks due to inactivity PLOF. Patient is unable to perform sit to stand with TTWB right LE due to severe weakness total body. PT instructed nursing staff to utilize Oneil lift for patient and staff safety. Patient is incontinent urine during session. From a PT standpoint, patient will require extended recovery due to acute ankle fracture with TTWB and inability to comply with this, morbid obesity and low tone from inactivity PLOF. PT Manager Primary Goals Half-Way Goals PT Manager Primary Goals Time Frame: Oct 25, 2020 Roll Left & Right (QC): 6 Sit to Lying (QC): 6 Lying-Sitting on Side/Bed(QC): 6 Sit to Stand (QC): 6 Chair/Tcu-pk-Wifxo Xfer(QC): 6 Toilet Transfer (QC): 6 Walk 10 feet (QC): 6 Walk 50ft with 2 Turns (QC): 6 Walk 150 ft (QC): 6 PT Plan Treatment/Plan Treatment Plan: Continue Plan of Care Treatment Plan: Education, Functional Activity Devika, Functional Strength, Gait, Safety, Therapeutic Exercise, Transfers Treatment Duration: Oct 25, 2020 Frequency: 5 times per week Estimated Hrs Per Day: .25 hour per day Patient and/or Family Agrees t: Yes Discharge Recommendations Therapy Discharge Recommendati: Other, See Comments (alf facility) Time/GCodes Time In: 858 Time Out: 921 Total Billed Treatment Time: 23 Total Billed Treatment 1 visit EX x 2 23 min KAIT PENA PT Oct 23, 2020 10:18
--- NOTE | 2020-10-23 10:30 | Progress Note ---
Subjective Date Seen by a Provider: Oct 23, 2020 Time Seen by a Provider: 10:30 Subjective/Events-last exam Patient doing a little better Pain is controlled as long as she is not moving Surgery went uncomplicated Patient appears to be very declined overall since last seen in the office just recently No evidence of CO2 narcosis causing this blunting of mental process either She reports that she does not use the CPAP but then she tells me she uses the CPAP Patient is now Oneil lift unsure if she is an candidate for inpatient rehab Check meds and labs Review of Systems General: Fatigue, Malaise Musculoskeletal: leg pain, foot pain Neurological: Weakness, Incoordination Objective Exam Last Set of Vital Signs Vital Signs Date Time Temp Pulse Resp B/P (MAP) Pulse Ox O2 Delivery O2 Flow Rate FiO2 10/23/20 08:50 95 Room Air 0.00 10/23/20 08:18 37.1 66 20 179/72 (107) Capillary Refill : Less Than 3 SecondsLess Than 3 Seconds I&O Intake and Output 10/23/20 00:00 Intake Total 410 ml Output Total 950 ml Balance -540 ml Intake Oral 400 ml IV Total 10 ml Output Urine Total 900 ml Estimated Blood Loss 50 ml # Voids 3 General: Alert, Oriented X3, Cooperative, No Acute Distress, Other (Flat affect) Lungs: Clear to Auscultation Heart: Regular Rate Results Lab Laboratory Tests 10/22/20 11:29: Glucometer 229H 10/22/20 16:32: Glucometer 312H 10/22/20 21:06: Glucometer 273H 10/23/20 04:35: White Blood Count 9.2, Red Blood Count 3.08L, Hemoglobin 9.0L, Hematocrit 28L, Mean Corpuscular Volume 91, Mean Corpuscular Hemoglobin 29, Mean Corpuscular Hemoglobin Concent 32, Red Cell Distribution Width 14.9H, Platelet Count 207, Mean Platelet Volume 10.6, Immature Granulocyte % (Auto) 1, Neutrophils (%) (Auto) 73, Lymphocytes (%) (Auto) 9L, Monocytes (%) (Auto) 12, Eosinophils (%) (Auto) 5, Basophils (%) (Auto) 0, Neutrophils # (Auto) 6.7, Lymphocytes # (Auto) 0.9L, Monocytes # (Auto) 1.1H, Eosinophils # (Auto) 0.5H, Basophils # (Auto) 0.0, Immature Granulocyte # (Auto) 0.1, Sodium Level 138, Potassium Level 4.2, Chloride Level 105, Carbon Dioxide Level 23, Anion Gap 10, Blood Urea Nitrogen 13, Creatinine 0.70, Estimat Glomerular Filtration Rate > 60, BUN/Creatinine Ratio 19, Glucose Level 134H, Calcium Level 8.3L, Corrected Calcium 9.0, Total Bilirubin 0.8, Aspartate Amino Transf (AST/SGOT) 28, Alanine Aminotransferase (ALT/SGPT) 21, Alkaline Phosphatase 91, Total Protein 6.6, Albumin 3.1L Microbiology 10/19/20 MRSA Screen - Final, Complete MRSA not isolated Assessment/Plan Assessment/Plan Assess & Plan/Chief Complaint Assessment: Refractory nausea and vomiting requiring IV fluids and unable to take p.o. meds Malignant hypertension requiring Cardene drip History of iron deficiency anemia History of constipation DM labile HTN AF PHILLIP on CPAP CRI OAC Right ankle fracture occurring during ambulation to bathroom Plan: Supportive care Cardene drip Insulin Cardiology consult Lovenox therapeutic dose 10/20/2020: Transfer to fourth floor Monitor closely Switch over IV meds to oral 10/21/2020: Ankle fracture repair tomorrow Monitor closely 10/22/2020: Ankle fracture repair today Monitor labs Monitor sugar Start bowel regimen postoperatively Inpatient rehab versus correction since she will be nonweightbearing 10/23/2020: Supportive care Pain control Anticoagulation for DVT prophylaxis Diagnosis/Problems Diagnosis/Problems (1) Intractable nausea and vomiting Status: Acute (2) Uncontrolled hypertension Status: Acute (3) PHILLIP on CPAP (4) Valvular heart disease (5) Hypertension Status: Chronic (6) Diabetes mellitus Status: Chronic HEATHER HOOKS DO Oct 23, 2020 10:30
--- NOTE | 2020-10-23 14:01 | Occupational Ther Daily Note ---
OT Current Status-Daily Note Subjective No pain reported. Mental Status/Objective Patient Orientation: Person, Place, Time, Situation Attachments: Oxygen ADL-Treatment Therapy Code Descriptions/Definitions Functional [place] Measure: 0=Not Assessed/NA 4=Minimal Assistance 1=Total Assistance 5=Supervision or Setup 2=Maximal Assistance 6=Modified [place] 3=Moderate Assistance 7=Complete IndependenceSCALE: Activities may be completed with or without assistive devices. 0-Sxwyidtmhe-uaagcqo completes the activity by him/herself with no assistance from a helper. 5-Set-up or Clean-up Assistance-helper sets up or cleans up; patient completes activity. [place] assists only prior to or following the activity. 4-Supervision or Touching Assistance-helper provides verbal cues and/or touching/steadying and/or contact guard assistance as patient completes activity. Assistance may be provided throughout the activity or intermittently. 3-Partial/Moderate Assistance-helper does LESS THAN HALF the effort. [place] lifts, holds or supports trunk or limbs, but provides less than half the effort. 2-Substantial/Maximal Assistance-helper does MORE THAN HALF the effort. [place] lifts or holds trunk or limbs and provides more than half the effort. 0-Osbsgrdzn-fefpny does ALL the effort. Patient does none of the effort to complete the activity. Or, the assistance of 2 or more helpers is required for the patient to complete the activity. If activity was not attempted, code reason: 7-Patient Refused. 9-Not Applicable-not attempted and the patient did not perform the activity before the current illness, exacerbation or injury. 10-Not Attempted due to Environmental Limitations-(lack of equipment, weather restraints, etc.). 88-Not Attempted due to Medical Conditions or Safety Concerns. On/Off Footwear: 2 Toileting Hygiene (QC): 1 Other Treatment This daily note will serve as a re-assessment for this pt. This pt. was evaluated due to nausea and vomiting, and discharged due to high ability. However, pt. fell and fx ankle. She underwent ORIF of ankle on 10-22-20, and new orders sent for re-assessment. Previous OT evaluation still in chart, so all parts re-assessed. All previous information still correct. Please see evaluation. Pt. transferred supine-sit with mod assist. She was able to scoot to EOB with min assist. Pt. on 2 L 02. Her sats at 96%. Oxygen removed for one minute and sats taken again. Sats at 93% and so oxygen re-applied. Pt. transferred unable to reach feet. Transferred sit-supine with max assist. Required max x 2 for bed mobility and re-positioning in bed. All needs met. Education OT Patient Education: Correct positioning, Modified ADL techniques, Progress toward Goal/Update tx plan, Purpose of tx/functional activities, Reviewed precautions, Rehab process, Transfer techniques Teaching Recipient: Patient Teaching Methods: Demonstration, Discussion Response to Teaching: Verbalize Understanding, Return Demonstration, Reinforcement Needed OT Assembler Installer Structures Goals Skilled Nursing Goals 1=Demonstrate adherence to instructed precautions during ADL tasks. 2=Patient will verbalize/demonstrate understanding of assistive devices/ modifications for ADL. 3=Patient will improve strength/tolerance for activity to enable patient to perform ADL's. OT Education/Plan Problem List/Assessment Assessment: Decreased Activ Tolerance, Decreased UE Strength, Dependent Transfers, Impaired Bed Mobility, Impaired Funct Balance, Impaired I ADL's, Impaired Self-Care Skills Discharge Recommendations Plan/Recommendations: Continue POC Therapy Discharge Recommendati: Post Acute OT Equpiment Recommendations-D/C: Hip Kit Treatment Plan/Plan of Care Treatment,Training & Education: Yes Patient would benefit from OT for education, treatment and training to promote independence in ADL's, mobility, safety and/or upper extremity function for ADL's. Plan of Care: ADL Retraining, Functional Mobility, UE Funct Exercise/Act, OTHER (eval and d/c) Treatment Duration: Oct 21, 2020 Frequency: 5 times per week Estimated Hrs Per Day: .25 hour per day Agreement: Yes Rehab Potential: Fair Time/GCodes Start Time: 13:25 Stop Time: 13:48 Total Time Billed (hr/min): 23 Billed Treatment Time 1, FA x 2 AMAURY BARR OT Oct 23, 2020 14:01
[2020-10-23] MEDS ORDERED: BISACODYL 10 MG SUPP (DULCOLAX) PR NR (16:00)
[2020-10-23] MEDS ORDERED: BISACODYL 10 MG SUPP (DULCOLAX) PR PRN (16:00)
--- NOTE | 2020-10-23 16:55 | Progress Note - Cardiology ---
Cardiology SOAP Progress Note Subjective: No cp or palp or syncope or shortness of breath Gen malaise and weakness No n/v/d Objective: I&O/Vital Signs 10/23/20 10/23/20 10/23/20 10/23/20 08:18 08:50 11:38 16:22 Temp 37.1 36.4 37.3 Pulse 66 61 66 Resp 20 22 18 B/P (MAP) 179/72 (107) 191/66 (107) 173/71 (105) Pulse Ox 95 95 97 92 O2 Delivery Room Air Room Air Nasal Cannula Nasal Cannula O2 Flow Rate 0.00 2.00 2.00 10/23/20 00:00 Intake Total 410 ml Output Total 950 ml Balance -540 ml Weight (Pounds): 226 Weight (Ounces): 4.0 Weight (Calculated Kilograms): [id number] Constitutional: AAO x 3, well-developed, well-nourished Respiratory: other Cardiovascular: regular rate-rhythm, S1 and S2, systolic murmur Gastrointestional: soft, audible bowel sounds Extremities: other (Right ankle with dressing in place); No clubbing, No cyanosis, No significant edema Neurologic/Psychiatric: oriented x 3, other Skin: No rash on exposed areas, No ulcerations on exposed areas Results/Procedures: Labs Laboratory Tests 10/22/20 21:06: Glucometer 273H 10/23/20 04:35: White Blood Count 9.2, Red Blood Count 3.08L, Hemoglobin 9.0L, Hematocrit 28L, Mean Corpuscular Volume 91, Mean Corpuscular Hemoglobin 29, Mean Corpuscular Hemoglobin Concent 32, Red Cell Distribution Width 14.9H, Platelet Count 207, Mean Platelet Volume 10.6, Immature Granulocyte % (Auto) 1, Neutrophils (%) (Auto) 73, Lymphocytes (%) (Auto) 9L, Monocytes (%) (Auto) 12, Eosinophils (%) (Auto) 5, Basophils (%) (Auto) 0, Neutrophils # (Auto) 6.7, Lymphocytes # (Auto) 0.9L, Monocytes # (Auto) 1.1H, Eosinophils # (Auto) 0.5H, Basophils # (Auto) 0.0, Immature Granulocyte # (Auto) 0.1, Sodium Level 138, Potassium Level 4.2, Chloride Level 105, Carbon Dioxide Level 23, Anion Gap 10, Blood Urea Nitrogen 13, Creatinine 0.70, Estimat Glomerular Filtration Rate > 60, BUN/Creatinine Ratio 19, Glucose Level 134H, Calcium Level 8.3L, Corrected Calcium 9.0, Total Bilirubin 0.8, Aspartate Amino Transf (AST/SGOT) 28, Alanine Aminotransferase ( ALT/SGPT) 21, Alkaline Phosphatase 91, Total Protein 6.6, Albumin 3.1L 10/23/20 11:14: Glucometer 210H 10/23/20 16:25: Glucometer 178H Microbiology 10/19/20 MRSA Screen - Final, Complete MRSA not isolated A/P: Assessment: R bimalleolar fracture due to a nonsyncopal fall on 10/21/20, treated with open r eduction and internal fixation on 10/22/20 Intractable nausea and vomiting, resolved Severe hypertension Uncontrolled DM II, managed by Dr Felipe S/P total left knee arthroplasty on 07-04-[address] Pagan. Paroxysmal atrial flutter/fibrillation - currently controlled on therapy with flecainide. This has been managed by EP in [place], [place] - Chronic Eliquis anticoag Echo of 04/01/20: LVEF 60-65%. Grade 2 diastolic dysfundtion. LA mod to sev dilated. Mild MR. PASP 50-55 mmHg mmHg No angiographically significant coronary artery disease. Normal global left ventricular systolic function, no significant mitral regurgitation, and normal left ventricular end-diastolic pressure on cardiac catheterization in October 2011. MPI of Jun 06, 2018 showed no evidence of any significant myocardial ischemia or infarction. LVEF 74% Hypothyroidism being treated with thyroid replacement therapy. H/o mild hyperkalemia, cessation of ISATU inhibitors did not help. Her intake man has advised continuing ISATU-inhib therapy Hyperlipidemia being treated with statins and being followed by her Creative Technologist, Dr. Med Deleon Mild bilat internal carotid dz per u/s of July 2018 Elevated BMI of approx 44 PHILLIP Plan: * BP still not well controlled - adjust bp meds * Resume OAC when deemed surgically safe * Monitor labs CHARLES LINN MD FACP [facility] Oct 23, 2020 16:55
[2020-10-23] MEDS: MONTELUKAST 10 MG (SINGULAIR) TAB PO SCH (20:03)
[2020-10-23] MEDS: SIMvastatin 20 MG (ZOCOR) TAB PO SCH (20:03)
[2020-10-24] VITALS (7 sets, daily range): BP systolic 148–176; BP diastolic 57–72
[2020-10-24] MEDS: CATHETER FLUSH 10 ML SYR IV SCH ×3 (05:25→21:45)
[2020-10-24] MEDS: inSUlin ASPART (NovoLOG) 1 UNIT/0.01 ML (CHARGE PER UNIT) SC SCH ×4 (05:26→17:08)
[2020-10-24 05:59] LABS: BASOPHILS % (AUTO) 0 % (0-10); EOSINOPHILS # (AUTO) 0.4 10^3/uL (0.0-0.3); EOSINOPHILS % (AUTO) 5 % (0-10); HEMATOCRIT 26 % (35-52); HEMOGLOBIN 8.1 g/dL (11.5-16.0); LYMPHOCYTES % (AUTO) 11 % (12-44); MEAN CORPUSCULAR HEMOGLOBIN 29 pg (25-34); MEAN CORPUSCULAR HGB CONC 31 g/dL (32-36); MEAN CORPUSCULAR VOLUME 93 fL (80-99); MEAN PLATELET VOLUME 10.6 fL (9.0-12.2); MONOCYTES % (AUTO) 11 % (0-12); NEUTROPHILS # (AUTO) 6.6 10^3/uL (1.8-7.8); NEUTROPHILS % (AUTO) 72 % (42-75); PLATELET COUNT 194 10^3/uL (130-400); WHITE BLOOD COUNT 9.1 10^3/uL (4.3-11.0)
[2020-10-24 06:08] LABS: ALBUMIN 2.9 GM/DL (3.2-4.5)
[2020-10-24 06:09] LABS: CHLORIDE 105 MMOL/L (98-107); POTASSIUM 3.8 MMOL/L (3.6-5.0); SODIUM 139 MMOL/L (135-145)
[2020-10-24 06:10] LABS: CALCIUM 8.3 MG/DL (8.5-10.1)
[2020-10-24 06:11] LABS: GLUCOSE 124 MG/DL (70-105)
[2020-10-24 06:12] LABS: CARBON DIOXIDE 26 MMOL/L (21-32)
[2020-10-24 06:13] LABS: BILIRUBIN,TOTAL 0.8 MG/DL (0.1-1.0)
[2020-10-24 06:14] LABS: ALKALINE PHOSPHATASE 102 U/L (40-136)
--- NOTE | 2020-10-24 06:14 | Progress Note ---
Subjective Date Seen by a Provider: Oct 24, 2020 Time Seen by a Provider: 11:00 Subjective/Events-last exam Patient doing about the same Pain is controlled Has become a Oneil lift Bowels move last night and today Sliding scale insulin regimen per her home dosing initiated Minimal amount of Percocet taken Appears to be very apathetic Review of Systems General: Fatigue Musculoskeletal: foot pain Objective Exam Last Set of Vital Signs Vital Signs Date Time Temp Pulse Resp B/P (MAP) Pulse Ox O2 Delivery O2 Flow Rate FiO2 10/24/20 05:00 36.2 54 22 169/57 (94) 97 Nasal Cannula 2.00 Capillary Refill : Less Than 3 SecondsLess Than 3 Seconds I&O Intake and Output 10/24/20 00:00 Intake Total 1640 ml Output Total 1350 ml Balance 290 ml Intake Oral 1640 ml Output Urine Total 1350 ml # Bowel Movements 1 General: Alert, Oriented X3, Cooperative, No Acute Distress, Other (Flat) Lungs: Clear to Auscultation Heart: Regular Rate Abdomen: Normal Bowel Sounds Results Lab Laboratory Tests 10/23/20 11:14: Glucometer 210H 10/23/20 16:25: Glucometer 178H 10/23/20 20:02: Glucometer 257H 10/24/20 05:02: Glucometer 124H 10/24/20 05:49: White Blood Count 9.1, Red Blood Count 2.79L, Hemoglobin 8.1L, Hematocrit 26L, Mean Corpuscular Volume 93, Mean Corpuscular Hemoglobin 29, Mean Corpuscular Hemoglobin Concent 31L, Red Cell Distribution Width 14.9H, Platelet Count 194, Mean Platelet Volume 10.6, Immature Granulocyte % (Auto) 1, Neutrophils (%) (Auto) 72, Lymphocytes (%) (Auto) 11L, Monocytes (%) (Auto) 11, Eosinophils (%) (Auto) 5, Basophils (%) (Auto) 0, Neutrophils # (Auto) 6.6, Lymphocytes # (Auto) 1.0, Monocytes # (Auto) 1.0, Eosinophils # (Auto) 0.4H, Basophils # (Auto) 0.0, Immature Granulocyte # (Auto) 0.1, Sodium Level 139, Potassium Level 3.8, Chloride Level 105, Carbon Dioxide Level 26, Anion Gap 8, Glucose Level 124H, Calcium Level 8.3L, Corrected Calcium 9.2, Total Bilirubin 0.8, Total Protein 6.0L, Albumin 2.9L Microbiology 10/19/20 MRSA Screen - Final, Complete MRSA not isolated Assessment/Plan Assessment/Plan Assess & Plan/Chief Complaint Assessment: Refractory nausea and vomiting requiring IV fluids and unable to take p.o. meds Malignant hypertension requiring Cardene drip History of iron deficiency anemia History of constipation DM labile HTN AF PHILLIP on CPAP CRI OAC Right ankle fracture occurring during ambulation to bathroom Plan: Supportive care Cardene drip Insulin Cardiology consult Lovenox therapeutic dose 10/20/2020: Transfer to fourth floor Monitor closely Switch over IV meds to oral 10/21/2020: Ankle fracture repair tomorrow Monitor closely 10/22/2020: Ankle fracture repair today Monitor labs Monitor sugar Start bowel regimen postoperatively Inpatient rehab versus detention since she will be nonweightbearing 10/23/2020: Supportive care Pain control Anticoagulation for DVT prophylaxis 10/24/2020: Maintain bowel regimen Pain control Oneil lift Will need long-term facility Prognosis guarded Diagnosis/Problems Diagnosis/Problems (1) Intractable nausea and vomiting Status: Acute (2) Uncontrolled hypertension Status: Acute (3) PHILLIP on CPAP (4) Valvular heart disease (5) Hypertension Status: Chronic (6) Diabetes mellitus Status: Chronic HEATHER HOOKS DO Oct 24, 2020 06:14
[2020-10-24 06:15] LABS: GFR ESTIMATED > 60
[2020-10-24 06:16] LABS: BUN/CREATININE RATIO 17
[2020-10-24 06:18] LABS: ALANINE AMINOTRANSFERASE 20 U/L (0-55)
--- NOTE | 2020-10-24 06:59 | Progress Note ---
Standard Progress Note Progress Notes/Assess & Plan Date Seen by a Provider: Oct 24, 2020 Time Seen by a Provider: 06:58 Progress/Assessment & Plan no complaints denies paresthesias Vital Signs Date Time Temp Pulse Resp B/P (MAP) Pulse Ox O2 Delivery O2 Flow Rate FiO2 10/23/20 03:41 36.6 62 22 168/62 (97) 93 Room Air 10/23/20 01:30 156/72 (100) 10/23/20 00:24 36.4 64 20 190/89 (122) 94 Room Air 10/22/20 20:15 Nasal Cannula 2.00 10/22/20 20:00 37.3 69 18 132/60 (84) 94 Room Air 10/22/20 16:00 36.6 64 20 133/75 (94) 94 Nasal Cannula 2.00 10/22/20 15:56 Room Air 10/22/20 14:20 Room Air 10/22/20 14:20 36.6 16 182/68 (106) 100 Room Air 10/22/20 14:10 16 171/67 (101) 100 Nasal Cannula 2 10/22/20 14:10 Nasal Cannula 2 10/22/20 14:00 16 182/77 (112) 100 Nasal Cannula 2 10/22/20 13:55 OxyMask 3 10/22/20 13:50 16 181/79 (113) 100 OxyMask 3 10/22/20 13:40 OxyMask 5 10/22/20 13:40 20 145/47 (79) 100 OxyMask 5 10/22/20 13:30 37.1 20 141/55 (83) 100 OxyMask 8 10/22/20 13:29 OxyMask 8 10/22/20 13:29 37.1 20 141/55 (83) 100 OxyMask 8 10/22/20 11:18 37.0 61 20 160/80 (106) 95 Nasal Cannula 2.00 I & O 10/23/20 07:00 Intake Total 860 ml Output Total 1250 ml Balance -390 ml Laboratory Tests Test 10/22/20 08:10 10/22/20 11:29 10/22/20 16:32 10/22/20 21:06 Range/Units White Blood Count 7.3 4.3-11.0 10^3/uL Red Blood Count 3.24 L 3.80-5.11 10^6/uL Hemoglobin 9.3 L 11.5-16.0 g/dL Hematocrit 30 L 35-52 % Mean Corpuscular Volume 92 80-99 fL Mean Corpuscular Hemoglobin 29 25-34 pg Mean Corpuscular Hemoglobin Concent 31 L 32-36 g/dL Red Cell Distribution Width 15.4 H 10.0-14.5 % Platelet Count 235 130-400 10^3/uL Mean Platelet Volume 10.5 9.0-12.2 fL Immature Granulocyte % (Auto) 1 % Neutrophils (%) (Auto) 67 42-75 % Lymphocytes (%) (Auto) 15 12-44 % Monocytes (%) (Auto) 11 0-12 % Eosinophils (%) (Auto) 6 0-10 % Basophils (%) (Auto) 0 0-10 % Neutrophils # (Auto) 4.9 1.8-7.8 10^3/uL Lymphocytes # (Auto) 1.1 1.0-4.0 10^3/uL Monocytes # (Auto) 0.8 0.0-1.0 10^3/uL Eosinophils # (Auto) 0.4 H 0.0-0.3 10^3/uL Basophils # (Auto) 0.0 0.0-0.1 10^3/uL Immature Granulocyte # (Auto) 0.0 0.0-0.1 10^3/uL Sodium Level 139 135-145 MMOL/L Potassium Level 4.1 3.6-5.0 MMOL/L Chloride Level 107 98-107 MMOL/L Carbon Dioxide Level 26 21-32 MMOL/L Anion Gap 6 5-14 MMOL/L Blood Urea Nitrogen 21 H 7-18 MG/DL Creatinine 0.79 0.60-1.30 MG/DL Estimat Glomerular Filtration Rate > 60 BUN/Creatinine Ratio 27 Glucose Level 221 H 70-105 MG/DL Calcium Level 8.5 8.5-10.1 MG/DL Corrected Calcium 9.1 8.5-10.1 MG/DL Total Bilirubin 0.9 0.1-1.0 MG/DL Aspartate Amino Transf (AST/SGOT) 29 5-34 U/L Alanine Aminotransferase (ALT/SGPT) 23 0-55 U/L Alkaline Phosphatase 99 40-136 U/L Total Protein 6.4 6.4-8.2 GM/DL Albumin 3.2 3.2-4.5 GM/DL Glucometer 229 H 312 H 273 H 70-110 MG/DL Test 10/23/20 04:35 Range/Units White Blood Count 9.2 4.3-11.0 10^3/uL Red Blood Count 3.08 L 3.80-5.11 10^6/uL Hemoglobin 9.0 L 11.5-16.0 g/dL Hematocrit 28 L 35-52 % Mean Corpuscular Volume 91 80-99 fL Mean Corpuscular Hemoglobin 29 25-34 pg Mean Corpuscular Hemoglobin Concent 32 32-36 g/dL Red Cell Distribution Width 14.9 H 10.0-14.5 % Platelet Count 207 130-400 10^3/uL Mean Platelet Volume 10.6 9.0-12.2 fL Immature Granulocyte % (Auto) 1 % Neutrophils (%) (Auto) 73 42-75 % Lymphocytes (%) (Auto) 9 L 12-44 % Monocytes (%) (Auto) 12 0-12 % Eosinophils (%) (Auto) 5 0-10 % Basophils (%) (Auto) 0 0-10 % Neutrophils # (Auto) 6.7 1.8-7.8 10^3/uL Lymphocytes # (Auto) 0.9 L 1.0-4.0 10^3/uL Monocytes # (Auto) 1.1 H 0.0-1.0 10^3/uL Eosinophils # (Auto) 0.5 H 0.0-0.3 10^3/uL Basophils # (Auto) 0.0 0.0-0.1 10^3/uL Immature Granulocyte # (Auto) 0.1 0.0-0.1 10^3/uL Sodium Level 138 135-145 MMOL/L Potassium Level 4.2 3.6-5.0 MMOL/L Chloride Level 105 98-107 MMOL/L Carbon Dioxide Level 23 21-32 MMOL/L Anion Gap 10 5-14 MMOL/L Blood Urea Nitrogen 13 7-18 MG/DL Creatinine 0.70 0.60-1.30 MG/DL Estimat Glomerular Filtration Rate > 60 BUN/Creatinine Ratio 19 Glucose Level 134 H 70-105 MG/DL Calcium Level 8.3 L 8.5-10.1 MG/DL Corrected Calcium 9.0 8.5-10.1 MG/DL Total Bilirubin 0.8 0.1-1.0 MG/DL Aspartate Amino Transf (AST/SGOT) 28 5-34 U/L Alanine Aminotransferase (ALT/SGPT) 21 0-55 U/L Alkaline Phosphatase 91 40-136 U/L Total Protein 6.6 6.4-8.2 GM/DL Albumin 3.1 L 3.2-4.5 GM/DL RLE-intact DF and PF of toes. brisk cap refill. Intact sensatioin to light touch throughout s/p R ankle ORIF PT/OT will likely require IRU due to weakness and poor mobility Final Diagnosis no complaints RLE--NVI splint well positioned s/p R ankle ORIF PT/OT await disposition ok to DC/TF when able from my standpoint ROSALINA VALDES MD Oct 24, 2020 06:59
[2020-10-24] MEDS: polyethylene glycoL POWDER 17 GM (MIRALAX) PACK PO SCH ×2 (09:02→20:50)
[2020-10-24] MEDS: ENALAPRIL 10 MG (VASOTEC) TAB PO SCH ×2 (09:03→20:50)
[2020-10-24] MEDS: PANTOPRAZOLE 40 MG (PROTONIX) TAB PO SCH ×2 (09:03→20:50)
[2020-10-24] MEDS: doxAzosin 2 MG (CARDURA) TAB PO SCH ×2 (09:03→20:49)
[2020-10-24] MEDS: LEVOTHYROXINE 100 MCG (LEVOTHROID) TAB PO SCH (09:03)
[2020-10-24] MEDS: meTOprolol SUCCINATE 100 MG (TOPROL XL) TAB PO SCH ×2 (09:03→20:50)
[2020-10-24] MEDS: SENNA W/DOCUSATE (SENOKOT S) TABLET PO SCH ×2 (09:03→20:49)
[2020-10-24] MEDS: LORATADINE (CLARITIN) 10 MG TAB PO SCH (09:03)
[2020-10-24] MEDS: APIXABAN 5 MG (ELIQUIS) TABLET PO SCH ×2 (09:03→20:50)
[2020-10-24] MEDS: amLODIPine 5 MG (NORVASC) TAB PO SCH (09:03)
[2020-10-24] MEDS: MULTIVIT W/MINERALS TAB (THERAGRAN M) PO SCH (09:03)
[2020-10-24] MEDS: DOCUSATE SODIUM 100 MG (COLACE) CAP PO SCH ×2 (09:03→20:50)
[2020-10-24] MEDS: FLECAINIDE 100 MG (TAMBOCOR) TAB PO SCH ×2 (09:04→20:50)
[2020-10-24] MEDS: oxyCODONE/APAP 5/325MG (PERCOCET 5) TABLET PO PRN (09:09)
--- NOTE | 2020-10-24 09:20 | Progress Note - Cardiology ---
Cardiology SOAP Progress Note Objective: I&O/Vital Signs 10/26/20 10/27/20 10/27/20 23:58 04:00 08:08 Temp 35.8 35.1 36.6 Pulse 71 67 70 Resp 18 18 20 B/P (MAP) 180/70 (106) 181/81 (114) 208/79 (122) Pulse Ox 98 95 95 O2 Delivery Room Air Room Air Room Air 10/27/20 00:00 Intake Total 1320 ml Output Total 50 ml Balance 1270 ml Weight (Pounds): 226 Weight (Ounces): 4.0 Weight (Calculated Kilograms): 102.924153 Constitutional: AAO x 3, well-developed, well-nourished Respiratory: other Cardiovascular: regular rate-rhythm, S1 and S2, systolic murmur Gastrointestional: soft, audible bowel sounds Extremities: other (Right ankle with dressing in place); No clubbing, No cyanosis, No significant edema Neurologic/Psychiatric: oriented x 3, other Skin: No rash on exposed areas, No ulcerations on exposed areas Results/Procedures: Labs Laboratory Tests 10/26/20 10:45: Glucometer 188H 10/26/20 15:56: Glucometer 163H 10/26/20 20:15: Glucometer 94 10/27/20 05:01: Glucometer 104 10/27/20 05:15: White Blood Count 10.0, Red Blood Count 3.14L, Hemoglobin 9.0L, Hematocrit 29L, Mean Corpuscular Volume 91, Mean Corpuscular Hemoglobin 29, Mean Corpuscular Hemoglobin Concent 31L, Red Cell Distribution Width 15.0H, Platelet Count 306, Mean Platelet Volume 10.1, Immature Granulocyte % (Auto) 1, Neutrophils (%) (Auto) 70, Lymphocytes (%) (Auto) 13, Monocytes (%) (Auto) 9, Eosinophils (%) (Auto) 8, Basophils (%) (Auto) 0, Neutrophils # (Auto) 7.0, Lymphocytes # (Auto) 1.3, Monocytes # (Auto) 0.9, Eosinophils # (Auto) 0.8H, Basophils # (Auto) 0.0, Immature Granulocyte # (Auto) 0.1, Sodium Level 141, Potassium Level 4.1, Chloride Level 100, Carbon Dioxide Level 32, Anion Gap 9, Blood Urea Nitrogen 9, Creatinine 0.63, Estimat Glomerular Filtration Rate > 60, BUN/Creatinine Ratio 14, Glucose Level 101, Calcium Level 9.1, Corrected Calcium 9.8, Total Bilirubin 0.7, Aspartate Amino Transf (AST/SGOT) 19, Alanine Aminotransferase (ALT/SGPT) 15, Alkaline Phosphatase 107, Total Protein 6.5, Albumin 3.1L Microbiology 10/19/20 MRSA Screen - Final, Complete MRSA not isolated A/P: Assessment: R bimalleolar fracture due to a nonsyncopal fall on 10/21/20, treated with open reduction and internal fixation on 10/22/20 Intractable nausea and vomiting, resolved Severe hypertension Uncontrolled DM II, managed by Dr Felipe S/P total left knee arthroplasty on 07-04-[address] Pagan. Paroxysmal atrial flutter/fibrillation - currently controlled on therapy with flecainide. This has been managed by EP in [place], [place] - Chronic Eliquis anticoag Echo of 04/01/20: LVEF 60-65%. Grade 2 diastolic dysfundtion. LA mod to sev dilated. Mild MR. PASP 50-55 mmHg mmHg No angiographically significant coronary artery disease. Normal global left ventricular systolic function, no significant mitral regurgitation, and normal left ventricular end-diastolic pressure on cardiac catheterization in October 2011. MPI of Jun 06, 2018 showed no evidence of any significant myocardial ischemia or infarction. LVEF 74% Hypothyroidism being treated with thyroid replacement therapy. H/o mild hyperkalemia, cessation of ISATU inhibitors did not help. Her reservoir engineer has advised continuing ISATU-inhib therapy Hyperlipidemia being treated with statins and being followed by her Supervisor [employer], Dr. Med Deleon Mild bilat internal carotid dz per u/s of July 2018 Elevated BMI of approx 44 PHILLIP Plan: * BP still not well controlled - adjust bp meds * OAC has been resumed * Monitor labs * Post op anemia - management per medical/surgical services ANDRIA LARRY Oct 24, 2020 09:20
[2020-10-24] MEDS ORDERED: amLODIPine 5 MG (NORVASC) TAB PO NR (09:30)
[2020-10-24] MEDS ORDERED: TRIAMTERENE/HCTZ 75-50 (MAXZIDE,DYAZIDE) TABLET PO NR (09:30)
--- NOTE | 2020-10-24 09:56 | Physical Therapy Daily Note ---
PT Daily Note-Current Subjective Patient agrees to PT. Mental Status Patient Orientation: Normal For Age Transfers SCALE: Activities may be completed with or without assistive devices. 5-Rhqhdigryt-ceowtwj completes the activity by him/herself with no assistance from a helper. 5-Set-up or Clean-up Assistance-helper sets up or cleans up; patient completes activity. [place] assists only prior to or following the activity. 4-Supervision or Touching Assistance-helper provides verbal cues and/or touching/steadying and/or contact guard assistance as patient completes activity. Assistance may be provided throughout the activity or intermittently. 3-Partial/Moderate Assistance-helper does LESS THAN HALF the effort. [place] lifts, holds or supports trunk or limbs, but provides less than half the effort. 2-Substantial/Maximal Assistance-helper does MORE THAN HALF the effort. [place] lifts or holds trunk or limbs and provides more than half the effort. 3-Hqgpbwnim-layoln does ALL the effort. Patient does none of the effort to complete the activity. Or, the assistance of 2 or more helpers is required for the patient to complete the activity. If activity was not attempted, code reason: 7-Patient Refused. 9-Not Applicable-not attempted and the patient did not perform the activity befo re the current illness, exacerbation or injury. 10-Not Attempted due to Environmental Limitations-(lack of equipment, weather re straints, etc.). 88-Not Attempted due to Medical Conditions or Safety Concerns. Roll Left & Right (QC): 2 Sit to Lying (QC): 2 Lying to Sitting/Side of Bed(Q: 2 Chair/Uqq-pz-Usxoy Xfer(QC): 1 (Oneil lift) Attempted to perform sit to stand to FWW, however, patient unable to perform and maintain TTWB right LE and left LE too weak to support body weight due to morbid obesity Weight Bearing Right Lower Extremity: Right Touch Toe Bearing Left Lower Extremity: Left Full Weight Bearing Patient unable to comply with TTWB right LE due to morbid obesity and low tone from inactivity PLOF Exercises Supine Ex: Quad Set, Heel Slides, Straight leg raise Supine Reps: 12 (AAROM) Seated Therapy Exercises: Long arc quads Seated Reps: 15 Assessment Patient up in recliner with needs met. PT to increase activity as tolerated by patient. Patient tolerates minimal activity. Oneil lift for transfers. PT Skilled Nursing Goals Media Relations Coordinator Goals PT Skilled Nursing Goals Time Frame: Oct 25, 2020 Roll Left & Right (QC): 6 Sit to Lying (QC): 6 Lying-Sitting on Side/Bed(QC): 6 Sit to Stand (QC): 6 Chair/Awp-cc-Nmqmg Xfer(QC): 6 Toilet Transfer (QC): 6 Walk 10 feet (QC): 6 Walk 50ft with 2 Turns (QC): 6 Walk 150 ft (QC): 6 PT Plan Treatment/Plan Treatment Plan: Continue Plan of Care Treatment Plan: Education, Functional Activity Devika, Functional Strength, Gait, Safety, Therapeutic Exercise, Transfers Treatment Duration: Oct 25, 2020 Frequency: 5 times per week Estimated Hrs Per Day: .25 hour per day Patient and/or Family Agrees t: Yes Time/GCodes Time In: 920 Time Out: 931 Total Billed Treatment Time: 11 Total Billed Treatment 1 visit FA 11 min KAIT PENA PT Oct 24, 2020 09:56
--- NOTE | 2020-10-24 10:19 | Progress Note - Cardiology ---
Cardiology SOAP Progress Note Subjective: No cp or palp or syncope No n/v/d Gen weakness and malaise No shortness of breath at rest Objective: I&O/Vital Signs 10/24/20 10/24/20 10/24/20 00:05 05:00 07:05 Temp 36.2 36.2 36.5 Pulse 58 54 56 Resp 22 22 20 B/P (MAP) 152/72 (98) 169/57 (94) 160/70 (100) Pulse Ox 98 97 99 O2 Delivery Nasal Cannula Nasal Cannula Nasal Cannula O2 Flow Rate 2.00 2.00 2.00 10/24/20 00:00 Intake Total 1190 ml Output Total 1050 ml Balance 140 ml Weight (Pounds): 226 Weight (Ounces): 4.0 Weight (Calculated Kilograms): 102.513635 Constitutional: AAO x 3, well-developed, well-nourished Respiratory: other Cardiovascular: regular rate-rhythm, S1 and S2, systolic murmur Gastrointestional: soft, audible bowel sounds Extremities: other (Right ankle with dressing in place); No clubbing, No cyanosis, No significant edema Neurologic/Psychiatric: oriented x 3, other Skin: No rash on exposed areas, No ulcerations on exposed areas Results/Procedures: Labs Laboratory Tests 10/23/20 11:14: Glucometer 210H 10/23/20 16:25: Glucometer 178H 10/23/20 20:02: Glucometer 257H 10/24/20 05:02: Glucometer 124H 10/24/20 05:49: White Blood Count 9.1, Red Blood Count 2.79L, Hemoglobin 8.1L, Hematocrit 26L, Mean Corpuscular Volume 93, Mean Corpuscular Hemoglobin 29, Mean Corpuscular Hemoglobin Concent 31L, Red Cell Distribution Width 14.9H, Platelet Count 194, Mean Platelet Volume 10.6, Immature Granulocyte % (Auto) 1, Neutrophils (%) (Auto) 72, Lymphocytes (%) (Auto) 11L, Monocytes (%) (Auto) 11, Eosinophils (%) (Auto) 5, Basophils (%) (Auto) 0, Neutrophils # (Auto) 6.6, Lymphocytes # (Auto) 1.0, Monocytes # (Auto) 1.0, Eosinophils # (Auto) 0.4H, Basophils # (Auto) 0.0, Immature Granulocyte # (Auto) 0.1, Sodium Level 139, Potassium Level 3.8, Chloride Level 105, Carbon Dioxide Level 26, Anion Gap 8, Blood Urea Nitrogen 12, Creatinine 0.70, Estimat Glomerular Filtration Rate > 60, BUN/Creatinine Ratio 17, Glucose Level 124H, Calcium Level 8.3L, Corrected Calcium 9.2, Total Bilirubin 0.8, Aspartate Amino Transf (AST/SGOT) 16, Alanine Aminotransferase (ALT/SGPT) 20, Alkaline Phosphatase 102, Total Protein 6.0L, Albumin 2.9L Microbiology 10/19/20 MRSA Screen - Final, Complete MRSA not isolated Laboratory Tests 10/23/20 04:35 10/24/20 05:49 A/P: Assessment: R bimalleolar fracture due to a nonsyncopal fall on 10/21/20, treated with open reduction and internal fixation on 10/22/20 Intractable nausea and vomiting at the time of this admission, resolved Severe hypertension, improving DM II, managed by Dr Felipe Paroxysmal atrial flutter/fibrillation - currently controlled on therapy with flecainide. This has been managed by EP in [place], [place] - Chronic Eliquis anticoag Echo of 04/01/20: LVEF 60-65%. Grade 2 diastolic dysfundtion. LA mod to sev dilated. Mild MR. PASP 50-55 mmHg mmHg Coronary w/u has not shown any significant CAD - Card cath in October 2011: No angiographically significant coronary artery disease. Normal global left ventricular systolic function, no significant mitral regurgitation, and normal left ventricular end-diastolic pressure - MPI of Jun 06, 2018 showed no evidence of any significant myocardial ischemia or infarction. LVEF 74% Hypothyroidism being treated with thyroid replacement therapy. Hyperlipidemia being treated with statins and being followed by her Fountain Helper, Dr. Med Deleon Mild bilat internal carotid dz per u/s of July 2018 Elevated BMI of approx 44 PHILLIP S/P total left knee arthroplasty on 07-04-[address] Pagan. Plan: * BP still not well controlled - adjust bp meds * OAC has been resumed * Monitor labs * Post op anemia - management per medical/surgical services CHARLES LINN MD FACP FAC CCDS Oct 24, 2020 10:19
--- NOTE | 2020-10-24 12:06 | Occupational Ther Daily Note ---
OT Current Status-Daily Note Subjective REASSESSMENT COMPLETED YESTERDAY, HOWEVER, POC NOT ADDRESSED AT THAT TIME. THIS WILL SERVE GOAL AND POC ASSESSMENT. PT'S GOALS OUTLINED IN THIS SESSION, THESE WERE NOT WRITTEN AT TIME OF EVALUATION SHE WAS AT [facility]. POC TO EXTEND FROM OCTOBER 21 TO OCTOBER 31 AT THIS TIME WITH UPDATED POC COMPLETED. Pt upright in recliner, AxO, states min pain in R ankle. Agrees to tx. Mental Status/Objective Patient Orientation: Person, Place, Situation, Normal For Age ADL-Treatment Therapy Code Descriptions/Definitions Functional [place] Measure: 0=Not Assessed/NA 4=Minimal Assistance 1=Total Assistance 5=Supervision or Setup 2=Maximal Assistance 6=Modified [place] 3=Moderate Assistance 7=Complete IndependenceSCALE: Activities may be completed with or without assistive devices. 6-Kpvypybvoa-jxfdtbu completes the activity by him/herself with no assistance from a helper. 5-Set-up or Clean-up Assistance-helper sets up or cleans up; patient completes activity. [place] assists only prior to or following the activity. 4-Supervision or Touching Assistance-helper provides verbal cues and/or touching/steadying and/or contact guard assistance as patient completes activity. Assistance may be provided throughout the activity or intermittently. 3-Partial/Moderate Assistance-helper does LESS THAN HALF the effort. [place] lifts, holds or supports trunk or limbs, but provides less than half the effort. 2-Substantial/Maximal Assistance-helper does MORE THAN HALF the effort. [place] lifts or holds trunk or limbs and provides more than half the effort. 9-Aqtnflney-rqovgw does ALL the effort. Patient does none of the effort to complete the activity. Or, the assistance of 2 or more helpers is required for the patient to complete the activity. If activity was not attempted, code reason: 7-Patient Refused. 9-Not Applicable-not attempted and the patient did not perform the activity before the current illness, exacerbation or injury. 10-Not Attempted due to Environmental Limitations-(lack of equipment, weather restraints, etc.). 88-Not Attempted due to Medical Conditions or Safety Concerns. Toileting Hygiene (QC): 1 (per clinical judgement due to need of rolling side to side.) Toilet Transfer (QC): 1 (maria del carmen.) Other Treatment Pt completes 2 sets of UE ex, educated on importance as pt will require increased UE strength to compensate for TTWB RLE status. Pt educated to complete shoulder flexion, back flies, and increased tricep extensions. Prior to full initiation of UE ex, nursing informatics analyst states pt desired bathroom and nursing informatics analyst will require assist. Pt TD with maria edl carmen from chair to bed with Ax2. Pt rolls side to side with CGA, bed rebolledo placed for BM. Pt comfortable, all needs met, call light in reach with encouragement to press upon completion, all questions addressed. Education OT Patient Education: Correct positioning, Exercise program, Home exercise program, Modified ADL techniques, Safety issues, Transfer techniques Teaching Recipient: Patient Teaching Methods: Demonstration, Discussion Response to Teaching: Verbalize Understanding, Return Demonstration OT Bookmobile Librarian Goals Bookmobile Librarian Goals Time Frame: Oct 31, 2020 Eating (QC): 6 Oral Hygiene (QC): 6 Toileting Hygiene (QC): 6 Shower/Bathe Self (QC): 6 Upper Body Dressing (QC): 6 Lower Body Dressing (QC): 6 On/Off Footwear (QC): 6 Additional Goals: 1-Demonstrate ADL Tasks, 2-Verbalize Understanding, 3- ImproveStrength/Devika 1=Demonstrate adherence to instructed precautions during ADL tasks. 2=Patient will verbalize/demonstrate understanding of assistive devices/modifications for ADL. 3=Patient will improve strength/tolerance for activity to enable patient to perform ADL's. OT Education/Plan Problem List/Assessment Assessment: Decreased Activ Tolerance, Decreased UE Strength, Dependent Transfers, Impaired Bed Mobility, Impaired Funct Balance, Impaired I ADL's, Impaired Self-Care Skills, Restricted Funct UE ROM, Visual-Perceptual Deficit Discharge Recommendations Plan/Recommendations: Continue POC Therapy Discharge Recommendati: 24 Hour Supervision, Post Acute OT Treatment Plan/Plan of Care Treatment,Training & Education: Yes Patient would benefit from OT for education, treatment and training to promote independence in ADL's, mobility, safety and/or upper extremity function for ADL's. Plan of Care: ADL Retraining, Caregiver Training, Functional Mobility, Orthotic Fitting/Training, UE Funct Exercise/Act, W/C Management Training, OTHER Treatment Duration: Oct 31, 2020 Frequency: 5 times per week Estimated Hrs Per Day: .25 hour per day Agreement: Yes Rehab Potential: Fair Time/GCodes Start Time: 11:36 Stop Time: 11:48 Total Time Billed (hr/min): 12 Billed Treatment Time 1, ADL (12) MAXI HENDRICKS OTR Oct 24, 2020 12:06
[2020-10-24] MEDS: MONTELUKAST 10 MG (SINGULAIR) TAB PO SCH (20:50)
[2020-10-24] MEDS: SIMvastatin 20 MG (ZOCOR) TAB PO SCH (20:50)
[2020-10-25] VITALS (7 sets, daily range): BP systolic 144–200; BP diastolic 61–92
[2020-10-25 05:38] LABS: BASOPHILS % (AUTO) 0 % (0-10); EOSINOPHILS # (AUTO) 0.4 10^3/uL (0.0-0.3); EOSINOPHILS % (AUTO) 4 % (0-10); HEMATOCRIT 26 % (35-52); HEMOGLOBIN 8.3 g/dL (11.5-16.0); LYMPHOCYTES # (AUTO) 1.4 10^3/uL (1.0-4.0); LYMPHOCYTES % (AUTO) 13 % (12-44); MEAN CORPUSCULAR HEMOGLOBIN 29 pg (25-34); MEAN CORPUSCULAR HGB CONC 31 g/dL (32-36); MEAN CORPUSCULAR VOLUME 91 fL (80-99); MEAN PLATELET VOLUME 10.9 fL (9.0-12.2); MONOCYTES # (AUTO) 0.8 10^3/uL (0.0-1.0); MONOCYTES % (AUTO) 8 % (0-12); NEUTROPHILS # (AUTO) 7.5 10^3/uL (1.8-7.8); NEUTROPHILS % (AUTO) 74 % (42-75); PLATELET COUNT 254 10^3/uL (130-400); WHITE BLOOD COUNT 10.2 10^3/uL (4.3-11.0)
[2020-10-25] MEDS: CATHETER FLUSH 10 ML SYR IV SCH ×3 (05:40→20:29)
[2020-10-25 05:52] LABS: ALBUMIN 2.9 GM/DL (3.2-4.5); CHLORIDE 106 MMOL/L (98-107); POTASSIUM 3.9 MMOL/L (3.6-5.0); SODIUM 143 MMOL/L (135-145)
[2020-10-25 05:53] LABS: CALCIUM 8.8 MG/DL (8.5-10.1)
[2020-10-25 05:54] LABS: GLUCOSE 94 MG/DL (70-105); TOTAL PROTEIN 6.2 GM/DL (6.4-8.2)
[2020-10-25 05:55] LABS: CARBON DIOXIDE 27 MMOL/L (21-32)
[2020-10-25 05:56] LABS: BILIRUBIN,TOTAL 0.7 MG/DL (0.1-1.0)
[2020-10-25 05:58] LABS: ALKALINE PHOSPHATASE 112 U/L (40-136); CREATININE SERUM 0.64 MG/DL (0.60-1.30); GFR ESTIMATED > 60
[2020-10-25 05:59] LABS: BUN/CREATININE RATIO 17
[2020-10-25 06:01] LABS: ALANINE AMINOTRANSFERASE 18 U/L (0-55)
--- NOTE | 2020-10-25 06:28 | Progress Note - Hospitalist ---
Subjective HPI/CC On Admission Date Seen by Provider: Oct 25, 2020 Time Seen by Provider: 11:00 Chief complaint: Severe nausea and vomiting with malignant hypertension with severe hyperglycemia History of present illness: This is a 70-year-old white female clinic patient of mine who has very complex comorbidities who presented after 2 days of nausea and vomiting unable to keep anything down for her heart conditions or diabetes who is currently now on a Cardene drip due to the severity of her blood pressure and Dr. Dunlap has been consulted and started Lovenox therapeutic dose to cover for atrial fibrillation stroke prophylaxis. She reports that she has not had any diarrhea but overall she has become very lethargic and nearly falling at home. Subjective/Events-last exam Patient not moving around much at all Apathy noted BM++ Iron ordered Hgb 9.3 Venofer ordered Pain controlled Review of Systems General: Fatigue, Malaise Neurological: Weakness Objective Exam Vital Signs Vital Signs Date Time Temp Pulse Resp B/P (MAP) Pulse Ox O2 Delivery O2 Flow Rate FiO2 10/26/20 03:48 36.9 73 20 208/69 (115) 96 Room Air 10/25/20 08:18 0.00 Capillary Refill : Less Than 3 SecondsLess Than 3 Seconds General Appearance: No Apparent Distress, WD/WN, Chronically ill Respiratory: Lungs Clear Cardiovascular: Regular Rate, Rhythm Neurologic/Psychiatric: Alert, Oriented x3, Depressed Affect Results/Procedures Lab Patient resulted labs reviewed. Assessment/Plan Assessment and Plan Assess & Plan/Chief Complaint Assessment: Refractory nausea and vomiting requiring IV fluids and unable to take p.o. meds Malignant hypertension requiring Cardene drip History of iron deficiency anemia History of constipation DM labile HTN AF PHILLIP on CPAP CRI OAC Right ankle fracture occurring during ambulation to bathroom Plan: Supportive care Cardene drip Insulin Cardiology consult Lovenox therapeutic dose 10/20/2020: Transfer to fourth floor Monitor closely Switch over IV meds to oral 10/21/2020: Ankle fracture repair tomorrow Monitor closely 10/22/2020: Ankle fracture repair today Monitor labs Monitor sugar Start bowel regimen postoperatively Inpatient rehab versus prison since she will be nonweightbearing 10/23/2020: Supportive care Pain control Anticoagulation for DVT prophylaxis 10/24/2020: Maintain bowel regimen Pain control Oneil lift Will need shelter facility Prognosis guarded 10/25/20: Maintain PT OT Pain control Apathy noted Diagnosis/Problems Diagnosis/Problems (1) Intractable nausea and vomiting Status: Acute (2) Uncontrolled hypertension Status: Acute (3) PHILLIP on CPAP (4) Valvular heart disease (5) Hypertension Status: Chronic (6) Diabetes mellitus Status: Chronic HEATHER HOOKS DO Oct 25, 2020 06:28
--- NOTE | 2020-10-25 06:54 | Progress Note ---
Standard Progress Note Progress Notes/Assess & Plan Date Seen by a Provider: Oct 25, 2020 Time Seen by a Provider: 06:53 Progress/Assessment & Plan no complaints denies paresthesias Vital Signs Date Time Temp Pulse Resp B/P (MAP) Pulse Ox O2 Delivery O2 Flow Rate FiO2 10/23/20 03:41 36.6 62 22 168/62 (97) 93 Room Air 10/23/20 01:30 156/72 (100) 10/23/20 00:24 36.4 64 20 190/89 (122) 94 Room Air 10/22/20 20:15 Nasal Cannula 2.00 10/22/20 20:00 37.3 69 18 132/60 (84) 94 Room Air 10/22/20 16:00 36.6 64 20 133/75 (94) 94 Nasal Cannula 2.00 10/22/20 15:56 Room Air 10/22/20 14:20 Room Air 10/22/20 14:20 36.6 16 182/68 (106) 100 Room Air 10/22/20 14:10 16 171/67 (101) 100 Nasal Cannula 2 10/22/20 14:10 Nasal Cannula 2 10/22/20 14:00 16 182/77 (112) 100 Nasal Cannula 2 10/22/20 13:55 OxyMask 3 10/22/20 13:50 16 181/79 (113) 100 OxyMask 3 10/22/20 13:40 OxyMask 5 10/22/20 13:40 20 145/47 (79) 100 OxyMask 5 10/22/20 13:30 37.1 20 141/55 (83) 100 OxyMask 8 10/22/20 13:29 OxyMask 8 10/22/20 13:29 37.1 20 141/55 (83) 100 OxyMask 8 10/22/20 11:18 37.0 61 20 160/80 (106) 95 Nasal Cannula 2.00 I & O 10/23/20 07:00 Intake Total 860 ml Output Total 1250 ml Balance -390 ml Laboratory Tests Test 10/22/20 08:10 10/22/20 11:29 10/22/20 16:32 10/22/20 21:06 Range/Units White Blood Count 7.3 4.3-11.0 10^3/uL Red Blood Count 3.24 L 3.80-5.11 10^6/uL Hemoglobin 9.3 L 11.5-16.0 g/dL Hematocrit 30 L 35-52 % Mean Corpuscular Volume 92 80-99 fL Mean Corpuscular Hemoglobin 29 25-34 pg Mean Corpuscular Hemoglobin Concent 31 L 32-36 g/dL Red Cell Distribution Width 15.4 H 10.0-14.5 % Platelet Count 235 130-400 10^3/uL Mean Platelet Volume 10.5 9.0-12.2 fL Immature Granulocyte % (Auto) 1 % Neutrophils (%) (Auto) 67 42-75 % Lymphocytes (%) (Auto) 15 12-44 % Monocytes (%) (Auto) 11 0-12 % Eosinophils (%) (Auto) 6 0-10 % Basophils (%) (Auto) 0 0-10 % Neutrophils # (Auto) 4.9 1.8-7.8 10^3/uL Lymphocytes # (Auto) 1.1 1.0-4.0 10^3/uL Monocytes # (Auto) 0.8 0.0-1.0 10^3/uL Eosinophils # (Auto) 0.4 H 0.0-0.3 10^3/uL Basophils # (Auto) 0.0 0.0-0.1 10^3/uL Immature Granulocyte # (Auto) 0.0 0.0-0.1 10^3/uL Sodium Level 139 135-145 MMOL/L Potassium Level 4.1 3.6-5.0 MMOL/L Chloride Level 107 98-107 MMOL/L Carbon Dioxide Level 26 21-32 MMOL/L Anion Gap 6 5-14 MMOL/L Blood Urea Nitrogen 21 H 7-18 MG/DL Creatinine 0.79 0.60-1.30 MG/DL Estimat Glomerular Filtration Rate > 60 BUN/Creatinine Ratio 27 Glucose Level 221 H 70-105 MG/DL Calcium Level 8.5 8.5-10.1 MG/DL Corrected Calcium 9.1 8.5-10.1 MG/DL Total Bilirubin 0.9 0.1-1.0 MG/DL Aspartate Amino Transf (AST/SGOT) 29 5-34 U/L Alanine Aminotransferase (ALT/SGPT) 23 0-55 U/L Alkaline Phosphatase 99 40-136 U/L Total Protein 6.4 6.4-8.2 GM/DL Albumin 3.2 3.2-4.5 GM/DL Glucometer 229 H 312 H 273 H 70-110 MG/DL Test 10/23/20 04:35 Range/Units White Blood Count 9.2 4.3-11.0 10^3/uL Red Blood Count 3.08 L 3.80-5.11 10^6/uL Hemoglobin 9.0 L 11.5-16.0 g/dL Hematocrit 28 L 35-52 % Mean Corpuscular Volume 91 80-99 fL Mean Corpuscular Hemoglobin 29 25-34 pg Mean Corpuscular Hemoglobin Concent 32 32-36 g/dL Red Cell Distribution Width 14.9 H 10.0-14.5 % Platelet Count 207 130-400 10^3/uL Mean Platelet Volume 10.6 9.0-12.2 fL Immature Granulocyte % (Auto) 1 % Neutrophils (%) (Auto) 73 42-75 % Lymphocytes (%) (Auto) 9 L 12-44 % Monocytes (%) (Auto) 12 0-12 % Eosinophils (%) (Auto) 5 0-10 % Basophils (%) (Auto) 0 0-10 % Neutrophils # (Auto) 6.7 1.8-7.8 10^3/uL Lymphocytes # (Auto) 0.9 L 1.0-4.0 10^3/uL Monocytes # (Auto) 1.1 H 0.0-1.0 10^3/uL Eosinophils # (Auto) 0.5 H 0.0-0.3 10^3/uL Basophils # (Auto) 0.0 0.0-0.1 10^3/uL Immature Granulocyte # (Auto) 0.1 0.0-0.1 10^3/uL Sodium Level 138 135-145 MMOL/L Potassium Level 4.2 3.6-5.0 MMOL/L Chloride Level 105 98-107 MMOL/L Carbon Dioxide Level 23 21-32 MMOL/L Anion Gap 10 5-14 MMOL/L Blood Urea Nitrogen 13 7-18 MG/DL Creatinine 0.70 0.60-1.30 MG/DL Estimat Glomerular Filtration Rate > 60 BUN/Creatinine Ratio 19 Glucose Level 134 H 70-105 MG/DL Calcium Level 8.3 L 8.5-10.1 MG/DL Corrected Calcium 9.0 8.5-10.1 MG/DL Total Bilirubin 0.8 0.1-1.0 MG/DL Aspartate Amino Transf (AST/SGOT) 28 5-34 U/L Alanine Aminotransferase (ALT/SGPT) 21 0-55 U/L Alkaline Phosphatase 91 40-136 U/L Total Protein 6.6 6.4-8.2 GM/DL Albumin 3.1 L 3.2-4.5 GM/DL RLE-intact DF and PF of toes. brisk cap refill. Intact sensatioin to light touch throughout s/p R ankle ORIF PT/OT will likely require IRU due to weakness and poor mobility Final Diagnosis no complaints Vital Signs Date Time Temp Pulse Resp B/P (MAP) Pulse Ox O2 Delivery O2 Flow Rate FiO2 10/25/20 04:34 36.0 58 18 171/69 (103) 94 Room Air 10/24/20 23:54 35.5 64 18 164/70 (101) 96 Room Air 10/24/20 20:45 Room Air 10/24/20 19:24 36.1 64 18 148/62 (90) 96 Room Air 10/24/20 15:41 36.4 62 18 155/63 (93) 94 Room Air 10/24/20 11:17 36.6 61 20 164/58 (93) 94 Room Air 10/24/20 08:00 95 Nasal Cannula 0.00 10/24/20 07:05 36.5 56 20 160/70 (100) 99 Nasal Cannula 2.00 I & O 10/25/20 07:00 Intake Total 1450 ml Output Total 1900 ml Balance -450 ml Laboratory Tests Test 10/24/20 11:14 10/24/20 15:32 10/24/20 20:04 10/24/20 21:38 Range/Units Glucometer 318 H 230 H 93 110 70-110 MG/DL Test 10/25/20 05:10 10/25/20 05:21 Range/Units White Blood Count 10.2 4.3-11.0 10^3/uL Red Blood Count 2.91 L 3.80-5.11 10^6/uL Hemoglobin 8.3 L 11.5-16.0 g/dL Hematocrit 26 L 35-52 % Mean Corpuscular Volume 91 80-99 fL Mean Corpuscular Hemoglobin 29 25-34 pg Mean Corpuscular Hemoglobin Concent 31 L 32-36 g/dL Red Cell Distribution Width 15.0 H 10.0-14.5 % Platelet Count 254 130-400 10^3/uL Mean Platelet Volume 10.9 9.0-12.2 fL Immature Granulocyte % (Auto) 1 % Neutrophils (%) (Auto) 74 42-75 % Lymphocytes (%) (Auto) 13 12-44 % Monocytes (%) (Auto) 8 0-12 % Eosinophils (%) (Auto) 4 0-10 % Basophils (%) (Auto) 0 0-10 % Neutrophils # (Auto) 7.5 1.8-7.8 10^3/uL Lymphocytes # (Auto) 1.4 1.0-4.0 10^3/uL Monocytes # (Auto) 0.8 0.0-1.0 10^3/uL Eosinophils # (Auto) 0.4 H 0.0-0.3 10^3/uL Basophils # (Auto) 0.0 0.0-0.1 10^3/uL Immature Granulocyte # (Auto) 0.1 0.0-0.1 10^3/uL Sodium Level 143 135-145 MMOL/L Potassium Level 3.9 3.6-5.0 MMOL/L Chloride Level 106 98-107 MMOL/L Carbon Dioxide Level 27 21-32 MMOL/L Anion Gap 10 5-14 MMOL/L Blood Urea Nitrogen 11 7-18 MG/DL Creatinine 0.64 0.60-1.30 MG/DL Estimat Glomerular Filtration Rate > 60 BUN/Creatinine Ratio 17 Glucose Level 94 70-105 MG/DL Calcium Level 8.8 8.5-10.1 MG/DL Corrected Calcium 9.7 8.5-10.1 MG/DL Total Bilirubin 0.7 0.1-1.0 MG/DL Aspartate Amino Transf (AST/SGOT) 15 5-34 U/L Alanine Aminotransferase (ALT/SGPT) 18 0-55 U/L Alkaline Phosphatase 112 40-136 U/L Total Protein 6.2 L 6.4-8.2 GM/DL Albumin 2.9 L 3.2-4.5 GM/DL Glucometer 86 70-110 MG/DL RLE- in splint NVI s/p R ankle ORIF continue PT/OT will follow after DC in two weeks ROSALINA VALDES MD Oct 25, 2020 06:54
[2020-10-25] MEDS: MULTIVIT W/MINERALS TAB (THERAGRAN M) PO SCH (08:53)
[2020-10-25] MEDS: ENALAPRIL 10 MG (VASOTEC) TAB PO SCH ×2 (08:53→20:20)
[2020-10-25] MEDS: inSUlin ASPART (NovoLOG) 1 UNIT/0.01 ML (CHARGE PER UNIT) SC SCH ×3 (08:53→17:40)
[2020-10-25] MEDS: SENNA W/DOCUSATE (SENOKOT S) TABLET PO SCH ×2 (08:53→20:20)
[2020-10-25] MEDS: polyethylene glycoL POWDER 17 GM (MIRALAX) PACK PO SCH ×2 (08:53→20:21)
[2020-10-25] MEDS: doxAzosin 2 MG (CARDURA) TAB PO SCH (08:54)
[2020-10-25] MEDS: TRIAMTERENE/HCTZ 75-50 (MAXZIDE,DYAZIDE) TABLET PO SCH (08:54)
[2020-10-25] MEDS: FLECAINIDE 100 MG (TAMBOCOR) TAB PO SCH ×2 (08:54→20:21)
[2020-10-25] MEDS: amLODIPine 5 MG (NORVASC) TAB PO SCH (08:54)
[2020-10-25] MEDS: LEVOTHYROXINE 100 MCG (LEVOTHROID) TAB PO SCH (08:55)
[2020-10-25] MEDS: meTOprolol SUCCINATE 100 MG (TOPROL XL) TAB PO SCH (08:55)
[2020-10-25] MEDS: PANTOPRAZOLE 40 MG (PROTONIX) TAB PO SCH ×2 (08:55→20:21)
[2020-10-25] MEDS: APIXABAN 5 MG (ELIQUIS) TABLET PO SCH ×2 (08:55→20:21)
[2020-10-25] MEDS: LORATADINE (CLARITIN) 10 MG TAB PO SCH (08:55)
[2020-10-25] MEDS: DOCUSATE SODIUM 100 MG (COLACE) CAP PO SCH ×2 (08:55→20:20)
--- NOTE | 2020-10-25 09:23 | Physical Therapy Daily Note ---
PT Daily Note-Current Subjective Pt. rates pain 1-2/10 in the R foot. Transfers SCALE: Activities may be completed with or without assistive devices. 4-[id number]-[id number] completes the activity by him/herself with no assistance from a helper. 5-Set-up or Clean-up Assistance-helper sets up or cleans up; patient completes activity. [place] assists only prior to or following the activity. 4-Supervision or Touching Assistance-helper provides verbal cues and/or touching/steadying and/or contact guard assistance as patient completes activity. Assistance may be provided throughout the activity or intermittently. 3-Partial/Moderate Assistance-helper does LESS THAN HALF the effort. [place] lifts, holds or supports trunk or limbs, but provides less than half the effort. 2-Substantial/Maximal Assistance-helper does MORE THAN HALF the effort. [place] lifts or holds trunk or limbs and provides more than half the effort. 2-Myruihymd-ljkmkm does ALL the effort. Patient does none of the effort to complete the activity. Or, the assistance of 2 or more helpers is required for the patient to complete the activity. If activity was not attempted, code reason: 7-Patient Refused. 9-Not Applicable-not attempted and the patient did not perform the activity before the current illness, exacerbation or injury. 10-Not Attempted due to Environmental Limitations-(lack of equipment, weather restraints, etc.). 88-Not Attempted due to Medical Conditions or Safety Concerns. Sit to Lying (QC): 4 Lying to Sitting/Side of Bed(Q: 4 Weight Bearing Right Lower Extremity: Right Touch Toe Bearing Left Lower Extremity: Left Full Weight Bearing Patient unable to comply with TTWB right LE due to morbid obesity and low tone from inactivity PLOF Exercises Supine Ex: Ankle pumps (L only), Quad Set, Hip abd/add Supine Reps: 20 Seated Therapy Exercises: Long arc quads (20 reps), Hip flexion, Hip abd/add Seated Reps: 10 Treatments transfers, LE exercises Assessment Current Status: Fair Progress Pt. did well with leg exercises but does fatigue quickly with transfers. Unable to stand to inability to maintain TTWB on R. Pt. returned to supine position with all needs met, R LE elevated. PT Assisted Goals Assisted Goals PT [employer] Goals Time Frame: Oct 25, 2020 Roll Left & Right (QC): 6 Sit to Lying (QC): 6 Lying-Sitting on Side/Bed(QC): 6 Sit to Stand (QC): 6 Chair/Eub-wt-Cckur Xfer(QC): 6 Toilet Transfer (QC): 6 Walk 10 feet (QC): 6 Walk 50ft with 2 Turns (QC): 6 Walk 150 ft (QC): 6 PT Plan Treatment/Plan Treatment Plan: Continue Plan of Care Treatment Plan: Education, Functional Activity Devika, Functional Strength, Gait, Safety, Therapeutic Exercise, Transfers Treatment Duration: Oct 25, 2020 Frequency: 5 times per week Estimated Hrs Per Day: .25 hour per day Patient and/or Family Agrees t: Yes Time/GCodes Time In: 912 Time Out: 928 Total Billed Treatment Time: 16 Total Billed Treatment 1, Ex 16' FUENTES KAYE PT Oct 25, 2020 09:23
[2020-10-25] MEDS ORDERED: DICLOFENAC 1% GEL 100 GM (VOLTAREN) TUBE TP PRN (12:30)
[2020-10-25] MEDS: IRON SUCROSE 200 MG/10 ML (VENOFER) VIAL IV SCH (13:03)
--- NOTE | 2020-10-25 14:08 | Cardiology Progress Note ---
Cardiology Progess Note Progress Date Seen by Provider: Oct 25, 2020 Time Seen by Provider: 14:02 We are seeing her due to paroxysmal atrial fibrillation and hypertension. She is thinking about the possibility of inpatient rehab. She denies any chest discomfort, dyspnea at rest, palpitations, or syncope. She continues to have intermittent, mild ankle edema. Focused Exam Respiratory: Lungs Clear Cardiovascular: Regular Rate, Rhythm, No Edema, No Gallop, No JVD, Normal Peripheral Pulses, Other (2/6 systolic ejection murmur. 1-2+ bilateral pretibial edema. Right lower extremity is wrapped with Krish bandage below the knee.) Skin: normal color, warm/dry A/P-Cardiology Assessment/Plan Plan See below. Diagnosis/Problems Diagnosis/Problems (1) Paroxysmal atrial fibrillation Assessment & Plan: She remains in sinus rhythm. Continue beta-christofer for rate control, flecainide for rhythm management and apixaban for stroke prophylaxis. (2) Essential hypertension Assessment & Plan: Blood pressures remain remarkably elevated. I suspect she may have sleep apnea contributing to the difficulty in controlling her blood pressures. We will continue to monitor and adjust her medication accordingly. (3) Coronary artery disease without angina pectoris Assessment & Plan: She is not having any angina. Continue beta-christofer and statin medication. She is not on aspirin because she takes apixaban for her atrial fibrillation. (4) Mixed hyperlipidemia Assessment & Plan: Continue statin medication. (5) Pulmonary hypertension Assessment & Plan: This was noted on her most recent echocardiogram. This may be related to her obesity and probable underlying sleep apnea. This will need to be followed longitudinally. (6) Morbid obesity Assessment & Plan: Lifestyle modification with exercise, diet and weight loss recommended to the patient. NIA HASSAN JR, MD Oct 25, 2020 14:08
[2020-10-25] MEDS: MONTELUKAST 10 MG (SINGULAIR) TAB PO SCH (20:20)
[2020-10-25] MEDS: doxAzosin 4 MG (CARDURA) TAB PO SCH (20:20)
[2020-10-25] MEDS: SIMvastatin 20 MG (ZOCOR) TAB PO SCH (20:20)
[2020-10-26] MEDS: cloNIDine 0.1 MG (CATAPRES) TAB PO PRN ×2 (00:25→04:14)
[2020-10-26 03:48] VITALS: BP 208/69
[2020-10-26] MEDS: CATHETER FLUSH 10 ML SYR IV SCH ×3 (05:48→20:38)
[2020-10-26 06:00] LABS: BASOPHILS % (AUTO) 0 % (0-10); EOSINOPHILS # (AUTO) 0.6 10^3/uL (0.0-0.3); EOSINOPHILS % (AUTO) 6 % (0-10); HEMATOCRIT 27 % (35-52); HEMOGLOBIN 8.6 g/dL (11.5-16.0); LYMPHOCYTES # (AUTO) 0.9 10^3/uL (1.0-4.0); LYMPHOCYTES % (AUTO) 10 % (12-44); MEAN CORPUSCULAR HEMOGLOBIN 29 pg (25-34); MEAN CORPUSCULAR HGB CONC 31 g/dL (32-36); MEAN CORPUSCULAR VOLUME 91 fL (80-99); MEAN PLATELET VOLUME 10.1 fL (9.0-12.2); MONOCYTES # (AUTO) 0.8 10^3/uL (0.0-1.0); MONOCYTES % (AUTO) 9 % (0-12); NEUTROPHILS % (AUTO) 74 % (42-75); PLATELET COUNT 270 10^3/uL (130-400); WHITE BLOOD COUNT 9.4 10^3/uL (4.3-11.0)
[2020-10-26 06:19] LABS: ALBUMIN 2.9 GM/DL (3.2-4.5); CHLORIDE 104 MMOL/L (98-107); SODIUM 143 MMOL/L (135-145)
[2020-10-26 06:20] LABS: CALCIUM 8.9 MG/DL (8.5-10.1)
[2020-10-26 06:22] LABS: GLUCOSE 96 MG/DL (70-105); TOTAL PROTEIN 6.1 GM/DL (6.4-8.2)
[2020-10-26 06:23] LABS: BILIRUBIN,TOTAL 0.7 MG/DL (0.1-1.0); CARBON DIOXIDE 30 MMOL/L (21-32)
[2020-10-26 06:25] LABS: ALKALINE PHOSPHATASE 107 U/L (40-136); CREATININE SERUM 0.59 MG/DL (0.60-1.30); GFR ESTIMATED > 60
[2020-10-26 06:26] LABS: BUN/CREATININE RATIO 14
[2020-10-26 06:28] LABS: ALANINE AMINOTRANSFERASE 18 U/L (0-55)
[2020-10-26] MEDS: inSUlin ASPART (NovoLOG) 1 UNIT/0.01 ML (CHARGE PER UNIT) SC SCH ×3 (07:55→17:35)
[2020-10-26 08:20] VITALS: BP 158/67
[2020-10-26] MEDS: polyethylene glycoL POWDER 17 GM (MIRALAX) PACK PO SCH ×2 (08:49→19:18)
[2020-10-26] MEDS: KCL 10 MEQ TAB (MICRO K) PO SCH (08:50)
[2020-10-26] MEDS: TRIAMTERENE/HCTZ 75-50 (MAXZIDE,DYAZIDE) TABLET PO SCH (08:50)
[2020-10-26] MEDS: LORATADINE (CLARITIN) 10 MG TAB PO SCH (08:50)
[2020-10-26] MEDS: meTOprolol SUCCINATE 100 MG (TOPROL XL) TAB PO SCH (08:50)
[2020-10-26] MEDS: APIXABAN 5 MG (ELIQUIS) TABLET PO SCH ×2 (08:50→20:36)
[2020-10-26] MEDS: FUROSEMIDE 40 MG (LASIX) TAB PO SCH (08:50)
[2020-10-26] MEDS: MULTIVIT W/MINERALS TAB (THERAGRAN M) PO SCH (08:50)
[2020-10-26] MEDS: doxAzosin 4 MG (CARDURA) TAB PO SCH ×2 (08:50→20:35)
[2020-10-26] MEDS: amLODIPine 5 MG (NORVASC) TAB PO SCH (08:51)
[2020-10-26] MEDS: PANTOPRAZOLE 40 MG (PROTONIX) TAB PO SCH ×2 (08:51→20:35)
[2020-10-26] MEDS: DOCUSATE SODIUM 100 MG (COLACE) CAP PO SCH ×2 (08:51→19:19)
[2020-10-26] MEDS: LEVOTHYROXINE 100 MCG (LEVOTHROID) TAB PO SCH (08:51)
[2020-10-26] MEDS: ENALAPRIL 10 MG (VASOTEC) TAB PO SCH ×2 (08:51→20:35)
[2020-10-26] MEDS: FLECAINIDE 100 MG (TAMBOCOR) TAB PO SCH ×2 (08:51→20:36)
[2020-10-26] MEDS: SENNA W/DOCUSATE (SENOKOT S) TABLET PO SCH ×2 (08:51→19:20)
[2020-10-26] MEDS ORDERED: CLONIDINE PATCH REMOVAL TP SCH (08:59)
[2020-10-26] MEDS ORDERED: FLAXSEED OIL 2000 MG PO SCH (09:00)
[2020-10-26] MEDS ORDERED: cloNIDine 0.2 MG PATCH (CATAPRES TTS) TDSY TOP SCH (09:00)
--- NOTE | 2020-10-26 09:34 | Progress Note - Hospitalist ---
Subjective HPI/CC On Admission Date Seen by Provider: Oct 26, 2020 Time Seen by Provider: 09:30 Chief complaint: Severe nausea and vomiting with malignant hypertension with severe hyperglycemia History of present illness: This is a 70-year-old white female clinic patient of mine who has very complex comorbidities who presented after 2 days of nausea and vomiting unable to keep anything down for her heart conditions or diabetes who is currently now on a Cardene drip due to the severity of her blood pressure and Dr. Dunlap has been consulted and started Lovenox therapeutic dose to cover for atrial fibrillation stroke prophylaxis. She reports that she has not had any diarrhea but overall she has become very lethargic and nearly falling at home. Subjective/Events-last exam Patient doing about the same Bowels are moving Pain is controlled Does not get out of bed much Talked her about prison because she is nonweightbearing Apathy noted Review of Systems General: Fatigue Musculoskeletal: foot pain Objective Exam Vital Signs Vital Signs Date Time Temp Pulse Resp B/P (MAP) Pulse Ox O2 Delivery O2 Flow Rate FiO2 10/26/20 19:28 36.5 65 18 174/73 (106) 94 Room Air 10/25/20 08:18 0.00 Capillary Refill : Less Than 3 SecondsLess Than 3 Seconds General Appearance: No Apparent Distress, WD/WN, Chronically ill Respiratory: Lungs Clear Cardiovascular: Regular Rate, Rhythm Neurologic/Psychiatric: Alert, Oriented x3, Depressed Affect Results/Procedures Lab Laboratory Tests 10/26/20 05:50 Patient resulted labs reviewed. Assessment/Plan Assessment and Plan Assess & Plan/Chief Complaint Assessment: Refractory nausea and vomiting requiring IV fluids and unable to take p.o. meds Malignant hypertension requiring Cardene drip History of iron deficiency anemia History of constipation DM labile HTN AF PHILLIP on CPAP CRI OAC Right ankle fracture occurring during ambulation to bathroom Plan: Supportive care Cardene drip Insulin Cardiology consult Lovenox therapeutic dose 10/20/2020: Transfer to fourth floor Monitor closely Switch over IV meds to oral 10/21/2020: Ankle fracture repair tomorrow Monitor closely 10/22/2020: Ankle fracture repair today Monitor labs Monitor sugar Start bowel regimen postoperatively Inpatient rehab versus longterm since she will be nonweightbearing 10/23/2020: Supportive care Pain control Anticoagulation for DVT prophylaxis 10/24/2020: Maintain bowel regimen Pain control Oneil lift Will need prison facility Prognosis guarded 10/25/20: Maintain PT OT Pain control Apathy noted 10/26/2020: Discussed prison placement due to nonweightbearing status Monitor closely Diagnosis/Problems Diagnosis/Problems (1) Intractable nausea and vomiting Status: Acute (2) Uncontrolled hypertension Status: Acute (3) PHILLIP on CPAP (4) Valvular heart disease (5) Hypertension Status: Chronic (6) Diabetes mellitus Status: Chronic HEATHER HOOKS DO Oct 26, 2020 09:34
[2020-10-26 12:06] VITALS: BP 161/70
[2020-10-26] MEDS ORDERED: cloNIDine 0.2 MG PATCH (CATAPRES TTS) TDSY TD SCH (13:00)
--- NOTE | 2020-10-26 13:03 | Cardiology Progress Note ---
Subjective Date Seen by Provider: Oct 26, 2020 Time Seen by Provider: 13:00 Subjective/Events-last exam We are seeing her for atrial fibrillation and hypertension. Her clonidine patch was discontinued yesterday. She is sitting up in bed and eating lunch. She denies chest pain, dyspnea at rest, palpitations, or syncope. She still has mild ankle edema. Objective-Cardiology Exam Last Set of Vital Signs Vital Signs 10/25/20 10/26/20 08:18 12:06 Temp 36.3 Pulse 67 Resp 20 B/P (MAP) 161/70 (100) Pulse Ox 96 O2 Delivery Room Air O2 Flow Rate 0.00 Capillary Refill : Less Than 3 SecondsLess Than 3 Seconds I&O Intake and Output 10/26/20 00:00 Intake Total 1170 ml Output Total 1275 ml Balance -105 ml Intake Oral 1170 ml Output Urine Total 1275 ml # Voids 7 # Bowel Movements 7 General: Alert, Oriented X3, Cooperative, No Acute Distress, Other (She is obese.) HEENT: Atraumatic, EOMI Neck: Supple Lungs: Clear to Auscultation, Normal Air Movement Heart: Regular Rate, Normal S1, Normal S2, Other (2/6 systolic ejection murmur.) Abdomen: Normal Bowel Sounds Extremities: No Clubbing, No Cyanosis Neuro: Normal Speech, Normal Tone, Cranial Nerves 3-12 NL Psych/Mental Status: Mental Status NL, Other (Flat affect.) Results Lab Laboratory Tests 10/26/20 05:50 A/P-Cardiology Admission Diagnosis (1) Paroxysmal atrial fibrillation Assessment & Plan: She remains in sinus rhythm on Flecainide. Continue beta christofer for rate control in the event of recurrent atrial fibrillation and apixiban for stroke prophylaxis. (2) Essential hypertension Assessment & Plan: Blood pressures remain remarkably elevated. I suspect she may have sleep apnea contributing to the difficulty in controlling her blood pressures. I will restart the clonidine patch. One might consider an evaluation of secondary causes of hypertension as an outpatient if not already done in the recent past. I will leave this up to the discretion of her regular blintze roller who knows her much better than on a. (3) Coronary artery disease without angina pectoris Assessment & Plan: She denies any chest pain. Continue beta-christofer and statin medication. She is not on aspirin because she takes apixaban for her atrial fibrillation. (4) Mixed hyperlipidemia Assessment & Plan: Continue statin medication. (5) Pulmonary hypertension Assessment & Plan: This was noted on her most recent echocardiogram. This may be related to her obesity and probable underlying sleep apnea. This will need to be followed longitudinally. (6) Morbid obesity Assessment & Plan: She needs to work on weight loss to help with reducing long- term medical complications from obesity. Assessment/Plan See below. NIA HASSAN JR, MD Oct 26, 2020 13:03
[2020-10-26 16:00] VITALS: BP 163/68
[2020-10-26 19:28] VITALS: BP 174/73
[2020-10-26] MEDS: MONTELUKAST 10 MG (SINGULAIR) TAB PO SCH (20:35)
[2020-10-26] MEDS: SIMvastatin 20 MG (ZOCOR) TAB PO SCH (20:35)
[2020-10-26 23:58] VITALS: BP 180/70
[2020-10-27 04:00] VITALS: BP 181/81
[2020-10-27] MEDS: CATHETER FLUSH 10 ML SYR IV SCH ×2 (06:17→14:00)
--- NOTE | 2020-10-27 06:31 | Progress Note - Hospitalist ---
Subjective HPI/CC On Admission Date Seen by Provider: Oct 27, 2020 Time Seen by Provider: 09:30 Chief complaint: Severe nausea and vomiting with malignant hypertension with severe hyperglycemia History of present illness: This is a 70-year-old white female clinic patient of mine who has very complex comorbidities who presented after 2 days of nausea and vomiting unable to keep anything down for her heart conditions or diabetes who is currently now on a Cardene drip due to the severity of her blood pressure and Dr. Dunlap has been consulted and started Lovenox therapeutic dose to cover for atrial fibrillation stroke prophylaxis. She reports that she has not had any diarrhea but overall she has become very lethargic and nearly falling at home. Subjective/Events-last exam Pt doing pretty well Needs assisted Oneil-lift dependent Hgb 9.0 Bowels are moving Review of Systems General: Fatigue, Malaise Musculoskeletal: foot pain Objective Exam Vital Signs Vital Signs Date Time Temp Pulse Resp B/P (MAP) Pulse Ox O2 Delivery O2 Flow Rate FiO2 10/27/20 15:06 36.5 62 20 153/68 97 Room Air 10/25/20 08:18 0.00 Capillary Refill : Less Than 3 SecondsLess Than 3 Seconds General Appearance: No Apparent Distress, WD/WN, Chronically ill, Obese Respiratory: Lungs Clear Cardiovascular: Regular Rate, Rhythm Neurologic/Psychiatric: Alert, Oriented x3 Results/Procedures Lab Patient resulted labs reviewed. Assessment/Plan Assessment and Plan Assess & Plan/Chief Complaint Assessment: Refractory nausea and vomiting requiring IV fluids and unable to take p.o. meds Malignant hypertension requiring Cardene drip History of iron deficiency anemia History of constipation DM labile HTN AF PHILLIP on CPAP CRI OAC Right ankle fracture occurring during ambulation to bathroom Plan: Supportive care Cardene drip Insulin Cardiology consult Lovenox therapeutic dose 10/20/2020: Transfer to fourth floor Monitor closely Switch over IV meds to oral 10/21/2020: Ankle fracture repair tomorrow Monitor closely 10/22/2020: Ankle fracture repair today Monitor labs Monitor sugar Start bowel regimen postoperatively Inpatient rehab versus senior care since she will be nonweightbearing 10/23/2020: Supportive care Pain control Anticoagulation for DVT prophylaxis 10/24/2020: Maintain bowel regimen Pain control Oneil lift Will need assisted facility Prognosis guarded 10/25/20: Maintain PT OT Pain control Apathy noted 10/26/2020: Discussed assisted placement due to nonweightbearing status Monitor closely 10/27/2020: Discharge to assisted Diagnosis/Problems Diagnosis/Problems (1) Intractable nausea and vomiting Status: Acute (2) Uncontrolled hypertension Status: Acute (3) PHILLIP on CPAP (4) Valvular heart disease (5) Hypertension Status: Chronic (6) Diabetes mellitus Status: Chronic HEATHER HOOKS DO Oct 27, 2020 06:30
[2020-10-27 06:33] LABS: BASOPHILS % (AUTO) 0 % (0-10); EOSINOPHILS # (AUTO) 0.8 10^3/uL (0.0-0.3); EOSINOPHILS % (AUTO) 8 % (0-10); HEMATOCRIT 29 % (35-52); LYMPHOCYTES # (AUTO) 1.3 10^3/uL (1.0-4.0); LYMPHOCYTES % (AUTO) 13 % (12-44); MEAN CORPUSCULAR HEMOGLOBIN 29 pg (25-34); MEAN CORPUSCULAR HGB CONC 31 g/dL (32-36); MEAN CORPUSCULAR VOLUME 91 fL (80-99); MEAN PLATELET VOLUME 10.1 fL (9.0-12.2); MONOCYTES # (AUTO) 0.9 10^3/uL (0.0-1.0); MONOCYTES % (AUTO) 9 % (0-12); NEUTROPHILS % (AUTO) 70 % (42-75); PLATELET COUNT 306 10^3/uL (130-400)
[2020-10-27 06:41] LABS: ALBUMIN 3.1 GM/DL (3.2-4.5); CHLORIDE 100 MMOL/L (98-107); POTASSIUM 4.1 MMOL/L (3.6-5.0); SODIUM 141 MMOL/L (135-145)
[2020-10-27 06:42] LABS: CALCIUM 9.1 MG/DL (8.5-10.1)
[2020-10-27 06:44] LABS: GLUCOSE 101 MG/DL (70-105); TOTAL PROTEIN 6.5 GM/DL (6.4-8.2)
[2020-10-27 06:45] LABS: BILIRUBIN,TOTAL 0.7 MG/DL (0.1-1.0); CARBON DIOXIDE 32 MMOL/L (21-32)
[2020-10-27 06:47] LABS: ALKALINE PHOSPHATASE 107 U/L (40-136); CREATININE SERUM 0.63 MG/DL (0.60-1.30); GFR ESTIMATED > 60
[2020-10-27 06:48] LABS: BUN/CREATININE RATIO 14
[2020-10-27 06:50] LABS: ALANINE AMINOTRANSFERASE 15 U/L (0-55)
[2020-10-27 08:08] VITALS: BP 208/79
--- NOTE | 2020-10-27 08:16 | Occupational Ther Daily Note ---
OT Current Status-Daily Note Subjective Pt AxO, supine in bed, bedpan placed. Pt completed urination and state tested nursing assistant present. Pt agrees to tx, states ache in R ankle. Mental Status/Objective Patient Orientation: Person, Place, Situation, Normal For Age ADL-Treatment Therapy Code Descriptions/Definitions Functional [place] Measure: 0=Not Assessed/NA 4=Minimal Assistance 1=Total Assistance 5=Supervision or Setup 2=Maximal Assistance 6=Modified [place] 3=Moderate Assistance 7=Complete IndependenceSCALE: Activities may be completed with or without assistive devices. 6-Eitsegxnog-isojkzl completes the activity by him/herself with no assistance from a helper. 5-Set-up or Clean-up Assistance-helper sets up or cleans up; patient completes activity. [place] assists only prior to or following the activity. 4-Supervision or Touching Assistance-helper provides verbal cues and/or touching/steadying and/or contact guard assistance as patient completes activ ity. Assistance may be provided throughout the activity or intermittently. 3-Partial/Moderate Assistance-helper does LESS THAN HALF the effort. [place] lifts, holds or supports trunk or limbs, but provides less than half the effort. 2-Substantial/Maximal Assistance-helper does MORE THAN HALF the effort. [place] lifts or holds trunk or limbs and provides more than half the effort. 2-Lfesmlgka-jxfhjd does ALL the effort. Patient does none of the effort to complete the activity. Or, the assistance of 2 or more helpers is required for the patient to complete the activity. If activity was not attempted, code reason: 7-Patient Refused. 9-Not Applicable-not attempted and the patient did not perform the activity before the current illness, exacerbation or injury. 10-Not Attempted due to Environmental Limitations-(lack of equipment, weather restraints, etc.). 88-Not Attempted due to Medical Conditions or Safety Concerns. Eating (QC): 6 Toileting Hygiene (QC): 1 Toilet Transfer (QC): 88 (Pt unable to SPT at this time, [place] lifts completed so bedpan in use) Other Treatment Pt completes rolling with SBA, bedpan removed and TD with cleaning. Pt agrees to upright positioning in chair. Pt rolls to place [place] sling and clint. Pt TD wiht [place] to chair (Ax2). Upright in chair, positioned with pillows behind back/ under LEs with LEs elevated. Pt s/u for eating. Pt demo's 3/3 ex that has been completing over the weekend, educated on 2 more (now completing shoulder flexion, back flies, triceps, biceps and ext shoulder rotation). Pt denies needs, call light in reach. Education OT Patient Education: Correct positioning, Exercise program, Home exercise program, Progress toward Goal/Update tx plan, Safety issues, Transfer techniques Teaching Recipient: Patient Teaching Methods: Demonstration, Discussion Response to Teaching: Verbalize Understanding, Return Demonstration OT Retirement Goals Retirement Goals Time Frame: Oct 31, 2020 Eating (QC): 6 Oral Hygiene (QC): 6 Toileting Hygiene (QC): 6 Shower/Bathe Self (QC): 6 Upper Body Dressing (QC): 6 Lower Body Dressing (QC): 6 On/Off Footwear (QC): 6 Additional Goals: 1-Demonstrate ADL Tasks, 2-Verbalize Understanding, 3- ImproveStrength/Devika 1=Demonstrate adherence to instructed precautions during ADL tasks. 2=Patient will verbalize/demonstrate understanding of assistive devices/modifications for ADL. 3=Patient will improve strength/tolerance for activity to enable patient to perform ADL's. OT Education/Plan Problem List/Assessment Assessment: Decreased Activ Tolerance, Decreased UE Strength, Dependent Transfers, Impaired Bed Mobility, Impaired Funct Balance, Impaired I ADL's, Impaired Self-Care Skills Discharge Recommendations Plan/Recommendations: Continue POC Therapy Discharge Recommendati: 24 Hour Supervision, Post Acute OT Treatment Plan/Plan of Care Treatment,Training & Education: Yes Patient would benefit from OT for education, treatment and training to promote independence in ADL's, mobility, safety and/or upper extremity function for ADL's. Plan of Care: ADL Retraining, Caregiver Training, Functional Mobility, Orthotic Fitting/Training, UE Funct Exercise/Act, W/C Management Training, OTHER Treatment Duration: Oct 31, 2020 Frequency: 5 times per week Estimated Hrs Per Day: .25 hour per day Agreement: Yes Rehab Potential: Fair Time/GCodes Start Time: 07:55 Stop Time: 08:10 Total Time Billed (hr/min): 15 Billed Treatment Time 1, EX (15) MAXI HENDRICKS OTR Oct 27, 2020 08:16
[2020-10-27] MEDS: LORATADINE (CLARITIN) 10 MG TAB PO SCH (08:36)
[2020-10-27] MEDS: meTOprolol SUCCINATE 100 MG (TOPROL XL) TAB PO SCH (08:36)
[2020-10-27] MEDS: PANTOPRAZOLE 40 MG (PROTONIX) TAB PO SCH (08:36)
[2020-10-27] MEDS: MULTIVIT W/MINERALS TAB (THERAGRAN M) PO SCH (08:36)
[2020-10-27] MEDS: FUROSEMIDE 40 MG (LASIX) TAB PO SCH (08:36)
[2020-10-27] MEDS: amLODIPine 5 MG (NORVASC) TAB PO SCH (08:36)
[2020-10-27] MEDS: IRON SUCROSE 200 MG/10 ML (VENOFER) VIAL IV SCH (08:36)
[2020-10-27] MEDS: APIXABAN 5 MG (ELIQUIS) TABLET PO SCH (08:36)
[2020-10-27] MEDS: inSUlin ASPART (NovoLOG) 1 UNIT/0.01 ML (CHARGE PER UNIT) SC SCH ×2 (08:36→12:25)
[2020-10-27] MEDS: LEVOTHYROXINE 100 MCG (LEVOTHROID) TAB PO SCH (08:36)
[2020-10-27] MEDS: TRIAMTERENE/HCTZ 75-50 (MAXZIDE,DYAZIDE) TABLET PO SCH (08:36)
[2020-10-27] MEDS: FLECAINIDE 100 MG (TAMBOCOR) TAB PO SCH (08:36)
[2020-10-27] MEDS: KCL 10 MEQ TAB (MICRO K) PO SCH (08:36)
[2020-10-27] MEDS: doxAzosin 4 MG (CARDURA) TAB PO SCH (08:37)
[2020-10-27] MEDS: ENALAPRIL 10 MG (VASOTEC) TAB PO SCH (08:37)
--- NOTE | 2020-10-27 08:49 | Progress Note - Cardiology ---
Cardiology SOAP Progress Note Objective: I&O/Vital Signs 10/28/20 00:00 Intake Total 880 ml Output Total 1100 ml Balance -220 ml Weight (Pounds): 226 Weight (Ounces): 4.0 Weight (Calculated Kilograms): 102.067789 Constitutional: AAO x 3, well-developed, well-nourished Respiratory: other Cardiovascular: regular rate-rhythm, S1 and S2, systolic murmur Gastrointestional: soft, audible bowel sounds Extremities: other (Right ankle with dressing in place); No clubbing, No cyanosis, No significant edema Neurologic/Psychiatric: oriented x 3, other Skin: normal color, warm/dry Results/Procedures: Labs Microbiology 10/19/20 MRSA Screen - Final, Complete MRSA not isolated A/P: Assessment: R bimalleolar fracture due to a nonsyncopal fall on 10/21/20, treated with open reduction and internal fixation on 10/22/20 Intractable nausea and vomiting at the time of this admission, resolved Severe hypertension, improving DM II, managed by Dr Felipe Paroxysmal atrial flutter/fibrillation - currently controlled on therapy with flecainide. This has been managed by EP in [place], [place] - Chronic Eliquis anticoag Echo of 04/01/20: LVEF 60-65%. Grade 2 diastolic dysfundtion. LA mod to sev dilated. Mild MR. PASP 50-55 mmHg mmHg Coronary w/u has not shown any significant CAD - Card cath in October 2011: No angiographically significant coronary artery disease. Normal global left ventricular systolic function, no significant mitral regurgitation, and normal left ventricular end-diastolic pressure - MPI of Jun 06, 2018 showed no evidence of any significant myocardial ischemia or infarction. LVEF 74% Hypothyroidism being treated with thyroid replacement therapy. Hyperlipidemia being treated with statins and being followed by her Industrial Economics Teacher, Dr. Med Deleon Mild bilat internal carotid dz per u/s of July 2018 Elevated BMI of approx 44 PHILLIP S/P total left knee arthroplasty on 07-04-[address] Pagan. Plan: * BP remains uncontrolled despite multi-drug regimen * - increase Toprol XL to 200mg BID * - increase Cardura to 6mg BID * Continue OAC for stroke prophylaxis * Monitor labs * Post op anemia - management per medical/surgical services ANDRIA LARRY Oct 27, 2020 08:49
[2020-10-27] MEDS: SENNA W/DOCUSATE (SENOKOT S) TABLET PO SCH (08:51)
[2020-10-27] MEDS: DOCUSATE SODIUM 100 MG (COLACE) CAP PO SCH (08:51)
[2020-10-27] MEDS: polyethylene glycoL POWDER 17 GM (MIRALAX) PACK PO SCH (08:51)
[2020-10-27] MEDS ORDERED: doxAzosin 4 MG (CARDURA) TAB PO SCH (09:00)
[2020-10-27] MEDS ORDERED: doxAzosin 2 MG (CARDURA) TAB PO ONE (09:45)
[2020-10-27 09:54] VITALS: BP 158/56
--- NOTE | 2020-10-27 11:30 | Physical Therapy Daily Note ---
PT Daily Note-Current Subjective Patient agrees to exercises. Patient up in recliner via nursing and [place] lift. Transfers SCALE: Activities may be completed with or without assistive devices. 2-Dzznzqwkdc-hlftyrj completes the activity by him/herself with no assistance from a helper. 5-Set-up or Clean-up Assistance-helper sets up or cleans up; patient completes activity. [place] assists only prior to or following the activity. 4-Supervision or Touching Assistance-helper provides verbal cues and/or touching/steadying and/or contact guard assistance as patient completes activity. Assistance may be provided throughout the activity or intermittently. 3-Partial/Moderate Assistance-helper does LESS THAN HALF the effort. [place] lifts, holds or supports trunk or limbs, but provides less than half the effort. 2-Substantial/Maximal Assistance-helper does MORE THAN HALF the effort. [place] lifts or holds trunk or limbs and provides more than half the effort. 6-Qukovzuhh-nbfupa does ALL the effort. Patient does none of the effort to complete the activity. Or, the assistance of 2 or more helpers is required for the patient to complete the activity. If activity was not attempted, code reason: 7-Patient Refused. 9-Not Applicable-not attempted and the patient did not perform the activity before the current illness, exacerbation or injury. 10-Not Attempted due to Environmental Limitations-(lack of equipment, weather restraints, etc.). 88-Not Attempted due to Medical Conditions or Safety Concerns. Weight Bearing Right Lower Extremity: Right Touch Toe Bearing Left Lower Extremity: Left Full Weight Bearing Patient unable to comply with TTWB right LE due to morbid obesity and low tone from inactivity PLOF Exercises Supine Ex: Quad Set, Heel Slides, Straight leg raise Supine Reps: 15 (x 2 sets in recliner with bilateral LE elevated) Assessment Patient fatigues with minimal activity. Patient remains up in recliner. PT Detention Goals Superintendent Tests Goals PT Superintendent Tests Goals Time Frame: Oct 25, 2020 Roll Left & Right (QC): 6 Sit to Lying (QC): 6 Lying-Sitting on Side/Bed(QC): 6 Sit to Stand (QC): 6 Chair/Wcw-zk-Adjsd Xfer(QC): 6 Toilet Transfer (QC): 6 Walk 10 feet (QC): 6 Walk 50ft with 2 Turns (QC): 6 Walk 150 ft (QC): 6 PT Plan Treatment/Plan Treatment Plan: Continue Plan of Care Treatment Plan: Education, Functional Activity Devika, Functional Strength, Gait, Safety, Therapeutic Exercise, Transfers Treatment Duration: Oct 25, 2020 Frequency: 5 times per week Estimated Hrs Per Day: .25 hour per day Patient and/or Family Agrees t: Yes Time/GCodes Time In: 1042 Time Out: 1052 Total Billed Treatment Time: 10 Total Billed Treatment 1 visit EX 10 min KAIT PENA PT Oct 27, 2020 11:30
[2020-10-27 11:46] VITALS: BP 153/68
[2020-10-27] MEDS ORDERED: POLY17PO54 PO (13:18)
[2020-10-27] MEDS ORDERED: MTP100TCR PO (13:18)
[2020-10-27] MEDS ORDERED: CLN.2T PO (13:18)
[2020-10-27] MEDS ORDERED: PANT40TA52 PO (13:18)
[2020-10-27] MEDS ORDERED: OXYC1TAB87 PO (13:18)
[2020-10-27] MEDS ORDERED: DCS100C PO (13:18)
[2020-10-27] MEDS ORDERED: ENAL10TA16 PO (13:18)
[2020-10-27] MEDS ORDERED: AMLO-250 PO (13:18)
[2020-10-27] MEDS ORDERED: DOXA4TAB2 PO (13:18)
[2020-10-27] MEDS ORDERED: TRIA1TAB3 PO (13:18)
--- NOTE | 2020-10-27 13:19 | Discharge Inst-Skilled Nursing ---
Discharge Inst-Skilled NF Reconcile Patient Problems Problems Reviewed?: Yes Chief Complaint Chief complaint: Severe nausea and vomiting with malignant hypertension with severe hyperglycemia History of present illness: This is a 70-year-old white female clinic patient of mine who has very complex comorbidities who presented after 2 days of nausea and vomiting unable to keep anything down for her heart conditions or diabetes who is currently now on a Cardene drip due to the severity of her blood pressure and Dr. Dunlap has been consulted and started Lovenox therapeutic dose to cover for atrial fibrillation stroke prophylaxis. She reports that she has not had any diarrhea but overall she has become very lethargic and nearly falling at home. Patient Instructions Patient Problems: Right ankle fracture AF PHILLIP on CPAP non-compliant CAD DM Hypothyroidism Obesity Apathy Goal: Return to independence Consult/Follow Up/Orders Follow Up Appt.: aPty Kemp/Dr Brittany Felipe will see on [facility] rounds Skilled NF Admit to: [facility] Certification ([facility]) I certify that SNF services are required to be given on an inpatient basis because of the above named patient's need for intermediate care on a continuing basis for the conditions(s) for which he/she was receiving inpatient hospital services prior to his/her transfer to the [facility]. Halfway Facility Order: Nursing Services, Airport Engineer-Evaluate & Treat, Physical Therapy-Evaluate & Treat Oxygen Delivery Method: Room Air Discharge Diet: ADA Diet Daily Activity as Tolerated: Yes Resuscitation Status: Full Code New & Resume Previous Orders New Medications: Triamterene/Hydrochlorothiazid (Triamterene-Hctz 37.5-25 mg Tb) 1 Each Tablet 1 EACH PO DAILY for 30 Days, TAB Amlodipine Besylate (Amlodipine Besylate) 5 Mg Tablet 10 MG PO DAILY for 30 Days, TAB Docusate Sodium (Dok) 100 Mg Capsule 100 MG PO BID for 30 Days, CAP Doxazosin Mesylate (Doxazosin Mesylate) 4 Mg Tablet 6 MG PO BID for 30 Days, TAB Enalapril Maleate (Enalapril Maleate) 10 Mg Tablet 20 MG PO BID for 30 Days, TAB Metoprolol Succinate (Metoprolol Succinate) 100 Mg Tab.er.24h 200 MG PO BID for 30 Days, TAB Oxycodone HCl/Acetaminophen (Percocet 5-325 mg Tablet) 1 Each Tablet 1 TAB PO Q4H PRN for PAIN-MODERATE (5-7), #30 TAB Pantoprazole Sodium (Pantoprazole Sodium) 40 Mg Tablet.dr 40 MG PO BID for 30 Days, TAB Polyethylene Glycol 3350 (Polyethylene Glycol 3350) 17 Gm Powd.pack 17 GM PO BID PRN for CONSTIPATION-1ST LINE for 30 Days, EACH Changed Medications: Clonidine HCl (Clonidine HCl) 0.2 Mg Tablet 0.2 MG PO TID for 30 Days, TAB (Changed from: BID) Continued Medications: Acetaminophen (Tylenol Extra Strength) 500 Mg Tablet 1000 MG PO Q8H PRN for PAIN-MILD (1-4), TAB Apixaban (Eliquis) 5 Mg Tablet 5 MG PO BID, TAB Cetirizine HCl (Cetirizine HCl) 10 Mg Tablet 10 MG PO DAILY, TAB Diclofenac Sodium (Diclofenac Sodium) 100 Gm Gel..gram. 1 APPLIC TP TID PRN for PAIN-BREAKTHROUGH, TUBE APPLIES TO WRIST AND/OR HANDS Flaxseed Oil (Flaxseed Oil) 1,000 Mg Capsule 2000 MG PO DAILY, CAP Flecainide Acetate (Flecainide Acetate) 150 Mg Tablet 150 MG PO BID, TAB Furosemide (Furosemide) 40 Mg Tablet 40 MG PO DAILY, TAB Insulin Glargine,Hum.rec.anlog (Toujeo Solostar) 300 Unit/1 Ml Insuln.pen 25 UNIT SQ HS, EA Insulin Lispro (Humalog) 100 Unit/1 Ml Cartridge 12 UNITS SQ AC for SLIDING SCALE, EA 12 units with meals for blood sugar <150 if BS > 150 add 2 units (14 units) if BS > 200 add 4 units (16 units) if BS > 250 add 6 units (18 units) if BS > 300 add 8 units (20 units) if BS > 350 add 10 units (20 units) Levothyroxine Sodium (Levothyroxine Sodium) 100 Mcg Tablet 100 MCG PO DAILY, TAB Lutein (Lutein) 6 Mg Capsule 6 MG PO DAILY, CAP Montelukast Sodium (Montelukast Sodium) 10 Mg Tablet 10 MG PO HS, TAB Multivitamin (Multivitamins) 1 Each Tablet 1 TAB PO DAILY, TAB Potassium Chloride (K-Tab ER) 10 Meq Tablet.er 10 MEQ PO DAILY, TAB Pravastatin Sodium (Pravastatin Sodium) 40 Mg Tablet 40 MG PO HS, TAB Discontinued Medications: Doxazosin Mesylate (Doxazosin Mesylate) 4 Mg Tablet 4 MG PO BID, TAB Enalapril Maleate (Enalapril Maleate) 10 Mg Tablet 10 MG PO DAILY, TAB Metoprolol Succinate (Metoprolol Succinate) 200 Mg Tab.er.24h 200 MG PO DAILY, TAB Omeprazole (Omeprazole) 20 Mg Capsule.dr 20 MG PO DAILY, CAP Brittany Felipe Oct 27, 2020 13:18 BRITTANY FELIPE DO Oct 27, 2020 13:19
--- NOTE | 2020-10-27 13:20 | Discharge Summary ---
Diagnosis/Chief Complaint Date of Admission Oct 19, 2020 at 07:51 Date of Discharge Discharge Date: Oct 27, 2020 Discharge Diagnosis Assessment: Refractory nausea and vomiting requiring IV fluids and unable to take p.o. meds Malignant hypertension requiring Cardene drip History of iron deficiency anemia History of constipation DM labile HTN AF PHILLIP on CPAP CRI OAC Right ankle fracture occurring during ambulation to bathroom Plan: Supportive care Cardene drip Insulin Cardiology consult Lovenox therapeutic dose 10/20/2020: Transfer to fourth floor Monitor closely Switch over IV meds to oral 10/21/2020: Ankle fracture repair tomorrow Monitor closely 10/22/2020: Ankle fracture repair today Monitor labs Monitor sugar Start bowel regimen postoperatively Inpatient rehab versus retirement since she will be nonweightbearing 10/23/2020: Supportive care Pain control Anticoagulation for DVT prophylaxis 10/24/2020: Maintain bowel regimen Pain control Oneil lift Will need assisted facility Prognosis guarded 10/25/20: Maintain PT OT Pain control Apathy noted 10/26/2020: Discussed assisted placement due to nonweightbearing status Monitor closely Diagnosis/Problems Diagnosis/Problems (1) Intractable nausea and vomiting Status: Acute (2) Uncontrolled hypertension Status: Acute (3) PHILLIP on CPAP (4) Valvular heart disease (5) Hypertension Status: Chronic (6) Diabetes mellitus Status: Chronic Discharge Summary Discharge Physical Examination Allergies: Coded Allergies: insulin detemir (Verified Allergy, Intermediate, RASH, takes Lantus & Humalog at home, 08/23/18) red bumps at insertion site of injection Has received regular insulin & Novolog during previous hospitalization morphine (Verified Adverse Reaction, Intermediate, Vomiting, 07/05/19) Vitals & I&Os Vital Signs Date Time Temp Pulse Resp B/P (MAP) Pulse Ox O2 Delivery O2 Flow Rate FiO2 10/27/20 15:06 36.5 62 20 153/68 97 Room Air 10/25/20 08:18 0.00 General Appearance: Alert, Oriented X3, Cooperative Respiratory: Clear to Auscultation Hospital Course Was the Problem List Reviewed?: Yes Lengthy hospital course after she was admitted for severe nausea and vomiting unable to tolerate p.o. meds with hypertensive urgency requiring Cardene drip and cardiology consultation along with Lovenox bridge until she was able to tolerate p.o. medication of anticoagulation for stroke prophylaxis from A. fib. Insulin was managed with subcu regimen and she ultimately stabilized with IV fluids but then she was walking to the bathroom and her ankle turned and she sustained a fracture of the right ankle requiring repair by Dr. VALDES. Patient had very slow recovery remained a Oneil lift due to nonweightbearing and morbid obesity so she was moved to the assisted for skilled care for slower recovery prior to returning home. Labs (last 24 hrs) Laboratory Tests 10/19/20 03:05: Glucometer 332H 10/19/20 03:27: White Blood Count 10.8, Red Blood Count 4.08, Hemoglobin 11.6, Hematocrit 36, Mean Corpuscular Volume 89, Mean Corpuscular Hemoglobin 28, Mean Corpuscular Hemoglobin Concent 32, Red Cell Distribution Width 14.6H, Platelet Count 285, Mean Platelet Volume 10.9, Immature Granulocyte % (Auto) 1, Neutrophils (%) (Auto) 92H, Lymphocytes (%) (Auto) 6L, Monocytes (%) (Auto) 1, Eosinophils (%) (Auto) 0, Basophils (%) (Auto) 0, Neutrophils # (Auto) 9.9H, Lymphocytes # (Auto) 0.7L, Monocytes # (Auto) 0.1, Eosinophils # (Auto) 0.0, Basophils # (Auto) 0.0, Immature Granulocyte # (Auto) 0.1, Neutrophils % (Manual) 94, Lymphocytes % (Manual) 5, Monocytes % (Manual) 1, Eosinophils % (Manual) 0, Basophils % (Manual) 0, Band Neutrophils 0, Blood Morphology Comment NORMAL, Sodium Level 140, Potassium Level 4.7, Chloride Level 101, Carbon Dioxide Level 22, Anion Gap 17H, Blood Urea Nitrogen 25H, Creatinine 0.89, Estimat Glomerular Filtration Rate > 60, BUN/Creatinine Ratio 28, Glucose Level 344H, Calcium Level 9.5, Corrected Calcium 9.6, Magnesium Level 2.0, Total Bilirubin 0.8, Aspartate Amino Transf (AST/SGOT) 25, Alanine Aminotransferase (ALT/SGPT) 21, Alkaline Phosphatase 151H, Troponin I < 0.028, Total Protein 8.3H, Albumin 3.9, Amylase Level 54, Lipase 13, Thyroid Stimulating Hormone (TSH) 0.10L, Free Thyroxine 1.44 10/19/20 03:43: Urine Color YELLOW, Urine Clarity CLEAR, Urine pH 5.0, Urine Specific [place] >=1.030, Urine Protein TRACEH, Urine Glucose (UA) 3+H, Urine Ketones 1+H, Urine Nitrite NEGATIVE, Urine Bilirubin NEGATIVE, Urine Urobilinogen 0.2, Urine Leuko cyte Esterase NEGATIVE, Urine RBC (Auto) TRACE-I, Urine RBC RARE, Urine WBC RARE, Urine Squamous Epithelial Cells 5-10, Urine Crystals NONE, Urine Bacteria NEGATIVE, Urine Casts NONE, Urine Mucus NEGATIVE, Urine Culture Indicated NO 10/19/20 04:30: SARS-CoV-2 RNA (RT-PCR) Not Detected 10/19/20 05:07: Glucometer 279H 10/19/20 08:18: Glucometer 321H 10/19/20 10:23: Glucometer 405*H 10/19/20 11:02: Glucometer 341H 10/19/20 17:54: Glucometer 192H 10/19/20 21:40: Glucometer 104 10/20/20 02:18: White Blood Count 12.5H, Red Blood Count 3.71L, Hemoglobin 10.6L, Hematocrit 33L , Mean Corpuscular Volume 90, Mean Corpuscular Hemoglobin 29, Mean Corpuscular Hemoglobin Concent 32, Red Cell Distribution Width 15.5H, Platelet Count 311, Mean Platelet Volume 10.6, Immature Granulocyte % (Auto) 1, Neutrophils (%) (Auto) 83H, Lymphocytes (%) (Auto) 9L, Monocytes (%) (Auto) 7, Eosinophils (%) (Auto) 0, Basophils (%) (Auto) 0, Neutrophils # (Auto) 10.4H, Lymphocytes # (Auto) 1.1, Monocytes # (Auto) 0.9, Eosinophils # (Auto) 0.0, Basophils # (Auto) 0.0, Immature Granulocyte # (Auto) 0.1, Sodium Level 146H, Potassium Level 3.8, Chloride Level 111#H, Carbon Dioxide Level 20L, Anion Gap 15H, Blood Urea Nitrogen 25H, Creatinine 0.85, Estimat Glomerular Filtration Rate > 60, BUN/Creatinine Ratio 29, Glucose Level 149H, Calcium Level 9.1, Corrected Calcium 9.5, Total Bilirubin 0.8, Aspartate Amino Transf (AST/SGOT) 24, Alanine Aminotransferase (ALT/SGPT) 19, Alkaline Phosphatase 113, Total Protein 7.2, Albumin 3.5 6/7/21 11:16: Glucometer 350H 10/20/20 15:19: Glucometer 328H 10/20/20 20:35: Glucometer 251H 10/21/20 05:51: Glucometer 72 10/21/20 06:31: White Blood Count 12.9H, Red Blood Count 3.68L, Hemoglobin 10.5L, Hematocrit 34L , Mean Corpuscular Volume 91, Mean Corpuscular Hemoglobin 29, Mean Corpuscular Hemoglobin Concent 31L, Red Cell Distribution Width 15.5H, Platelet Count 288, Mean Platelet Volume 10.2, Immature Granulocyte % (Auto) 1, Neutrophils (%) (Auto) 78H, Lymphocytes (%) (Auto) 13, Monocytes (%) (Auto) 8, Eosinophils (%) (Auto) 1, Basophils (%) (Auto) 0, Neutrophils # (Auto) 10.0H, Lymphocytes # (Auto) 1.7, Monocytes # (Auto) 1.0, Eosinophils # (Auto) 0.1, Basophils # (Auto) 0.0, Immature Granulocyte # (Auto) 0.1, Sodium Level 144, Potassium Level 3.6, Chloride Level 110H, Carbon Dioxide Level 25, Anion Gap 9, Blood Urea Nitrogen 22H, Creatinine 0.75, Estimat Glomerular Filtration Rate > 60, BUN/Creatinine Ratio 29, Glucose Level 72, Calcium Level 9.5, Corrected Calcium 9.8, Total Bilirubin 0.8, Aspartate Amino Transf (AST/SGOT) 39H, Alanine Aminotransferase (ALT/SGPT) 23, Alkaline Phosphatase 111, Total Protein 7.0, Albumin 3.6 10/21/20 11:06: Blood Gas Puncture Site L RAD, Blood Gas Patient Temperature 37.0, Arterial Blood pH 7.37, Arterial Blood Partial Pressure CO2 42, Arterial Blood Partial Pressure O2 72L, Arterial Blood HCO3 24, Arterial Blood Total CO2 24.9, Arterial Blood Oxygen Saturation 95, Arterial Blood Base Excess -0.9, Sumit Test YES-POS, Blood Gas Ventilator Setting NO, Blood Gas Inspired Oxygen ROOM AIR 10/21/20 11:08: Ammonia 27 10/21/20 11:25: Glucometer 187H 10/21/20 16:30: Glucometer 196H 10/21/20 19:46: Glucometer 47*L 10/21/20 21:12: Glucometer 103 10/22/20 05:19: Glucometer 184H 10/22/20 08:10: White Blood Count 7.3, Red Blood Count 3.24L, Hemoglobin 9.3L, Hematocrit 30L, Mean Corpuscular Volume 92, Mean Corpuscular Hemoglobin 29, Mean Corpuscular Hemoglobin Concent 31L, Red Cell Distribution Width 15.4H, Platelet Count 235, Mean Platelet Volume 10.5, Immature Granulocyte % (Auto) 1, Neutrophils (%) (Auto) 67, Lymphocytes (%) (Auto) 15, Monocytes (%) (Auto) 11, Eosinophils (%) (Auto) 6, Basophils (%) (Auto) 0, Neutrophils # (Auto) 4.9, Lymphocytes # (Auto) 1.1, Monocytes # (Auto) 0.8, Eosinophils # (Auto) 0.4H, Basophils # (Auto) 0.0, Immature Granulocyte # (Auto) 0.0, Sodium Level 139, Potassium Level 4.1, Chloride Level 107, Carbon Dioxide Level 26, Anion Gap 6, Blood Urea Nitrogen 21H, Creatinine 0.79, Estimat Glomerular Filtration Rate > 60, BUN/Creatinine Ratio 27, Glucose Level 221H, Calcium Level 8.5, Corrected Calcium 9.1, Total Bilirubin 0.9, Aspartate Amino Transf (AST/SGOT) 29, Alanine Aminotransferase (ALT/SGPT) 23, Alkaline Phosphatase 99, Total Protein 6.4, Albumin 3.2 10/22/20 11:29: Glucometer 229H 10/22/20 16:32: Glucometer 312H 10/22/20 21:06: Glucometer 273H 10/23/20 04:35: White Blood Count 9.2, Red Blood Count 3.08L, Hemoglobin 9.0L, Hematocrit 28L, Mean Corpuscular Volume 91, Mean Corpuscular Hemoglobin 29, Mean Corpuscular Hemoglobin Concent 32, Red Cell Distribution Width 14.9H, Platelet Count 207, Mean Platelet Volume 10.6, Immature Granulocyte % (Auto) 1, Neutrophils (%) (Auto) 73, Lymphocytes (%) (Auto) 9L, Monocytes (%) (Auto) 12, Eosinophils (%) (Auto) 5, Basophils (%) (Auto) 0, Neutrophils # (Auto) 6.7, Lymphocytes # (Auto) 0.9L, Monocytes # (Auto) 1.1H, Eosinophils # (Auto) 0.5H, Basophils # (Auto) 0.0, Immature Granulocyte # (Auto) 0.1, Sodium Level 138, Potassium Level 4.2, Chloride Level 105, Carbon Dioxide Level 23, Anion Gap 10, Blood Urea Nitrogen 13, Creatinine 0.70, Estimat Glomerular Filtration Rate > 60, BUN/Creatinine Ratio 19, Glucose Level 134H, Calcium Level 8.3L, Corrected Calcium 9.0, Total Bilirubin 0.8, Aspartate Amino Transf (AST/SGOT) 28, Alanine Aminotransferase (ALT/SGPT) 21, Alkaline Phosphatase 91, Total Protein 6.6, Albumin 3.1L 10/23/20 11:14: Glucometer 210H 10/23/20 16:25: Glucometer 178H 10/23/20 20:02: Glucometer 257H 10/24/20 05:02: Glucometer 124H 10/24/20 05:49: White Blood Count 9.1, Red Blood Count 2.79L, Hemoglobin 8.1L, Hematocrit 26L, Mean Corpuscular Volume 93, Mean Corpuscular Hemoglobin 29, Mean Corpuscular Hemoglobin Concent 31L, Red Cell Distribution Width 14.9H, Platelet Count 194, Mean Platelet Volume 10.6, Immature Granulocyte % (Auto) 1, Neutrophils (%) (Auto) 72, Lymphocytes (%) (Auto) 11L, Monocytes (%) (Auto) 11, Eosinophils (%) (Auto) 5, Basophils (%) (Auto) 0, Neutrophils # (Auto) 6.6, Lymphocytes # (Auto) 1.0, Monocytes # (Auto) 1.0, Eosinophils # (Auto) 0.4H, Basophils # (Auto) 0.0, Immature Granulocyte # (Auto) 0.1, Sodium Level 139, Potassium Level 3.8, Chloride Level 105, Carbon Dioxide Level 26, Anion Gap 8, Blood Urea Nitrogen 12, Creatinine 0.70, Estimat Glomerular Filtration Rate > 60, BUN/Creatinine Ratio 17, Glucose Level 124H, Calcium Level 8.3L, Corrected Calcium 9.2, Total Bilirubin 0.8, Aspartate Amino Transf (AST/SGOT) 16, Alanine Aminotransferase (ALT/SGPT) 20, Alkaline Phosphatase 102, Total Protein 6.0L, Albumin 2.9L 10/24/20 11:14: Glucometer 318H 10/24/20 15:32: Glucometer 230H 10/24/20 20:04: Glucometer 93 10/24/20 21:38: Glucometer 110 10/25/20 05:10: White Blood Count 10.2, Red Blood Count 2.91L, Hemoglobin 8.3L, Hematocrit 26L, Mean Corpuscular Volume 91, Mean Corpuscular Hemoglobin 29, Mean Corpuscular Hemoglobin Concent 31L, Red Cell Distribution Width 15.0H, Platelet Count 254, Mean Platelet Volume 10.9, Immature Granulocyte % (Auto) 1, Neutrophils (%) (Auto) 74, Lymphocytes (%) (Auto) 13, Monocytes (%) (Auto) 8, Eosinophils (%) (Auto) 4, Basophils (%) (Auto) 0, Neutrophils # (Auto) 7.5, Lymphocytes # (Auto) 1.4, Monocytes # (Auto) 0.8, Eosinophils # (Auto) 0.4H, Basophils # (Auto) 0.0, Immature Granulocyte # (Auto) 0.1, Sodium Level 143, Potassium Level 3.9, Chloride Level 106, Carbon Dioxide Level 27, Anion Gap 10, Blood Urea Nitrogen 11, Creatinine 0.64, Estimat Glomerular Filtration Rate > 60, BUN/Creatinine Ratio 17, Glucose Level 94, Calcium Level 8.8, Corrected Calcium 9.7, Iron Level 19L, Total Bilirubin 0.7, Aspartate Amino Transf (AST/SGOT) 15, Alanine Aminotransferase (ALT/SGPT) 18, Alkaline Phosphatase 112, Total Protein 6.2L, Albumin 2.9L 10/25/20 05:21: Glucometer 86 10/25/20 10:55: Glucometer 151H 10/25/20 15:49: Glucometer 127H 10/25/20 20:10: Glucometer 134H 10/26/20 05:50: White Blood Count 9.4, Red Blood Count 3.01L, Hemoglobin 8.6L, Hematocrit 27L, Mean Corpuscular Volume 91, Mean Corpuscular Hemoglobin 29, Mean Corpuscular Hemoglobin Concent 31L, Red Cell Distribution Width 15.0H, Platelet Count 270, Mean Platelet Volume 10.1, Immature Granulocyte % (Auto) 1, Neutrophils (%) (Auto) 74, Lymphocytes (%) (Auto) 10L, Monocytes (%) (Auto) 9, Eosinophils (%) (Auto) 6, Basophils (%) (Auto) 0, Neutrophils # (Auto) 7.0, Lymphocytes # (Auto) 0.9L, Monocytes # (Auto) 0.8, Eosinophils # (Auto) 0.6H, Basophils # (Auto) 0.0, Immature Granulocyte # (Auto) 0.1, Sodium Level 143, Potassium Level 4.0, Chloride Level 104, Carbon Dioxide Level 30, Anion Gap 9, Blood Urea Nitrogen 8, Creatinine 0.59L, Estimat Glomerular Filtration Rate > 60, BUN/Creatinine Ratio 14, Glucose Level 96, Calcium Level 8.9, Corrected Calcium 9.8, Total Bilirubin 0.7, Aspartate Amino Transf (AST/SGOT) 15, Alanine Aminotransferase (ALT/SGPT) 18, Alkaline Phosphatase 107, Total Protein 6.1L, Albumin 2.9L 10/26/20 10:45: Glucometer 188H 10/26/20 15:56: Glucometer 163H 10/26/20 20:15: Glucometer 94 10/27/20 05:01: Glucometer 104 10/27/20 05:15: White Blood Count 10.0, Red Blood Count 3.14L, Hemoglobin 9.0L, Hematocrit 29L, Mean Corpuscular Volume 91, Mean Corpuscular Hemoglobin 29, Mean Corpuscular Hemoglobin Concent 31L, Red Cell Distribution Width 15.0H, Platelet Count 306, Mean Platelet Volume 10.1, Immature Granulocyte % (Auto) 1, Neutrophils (%) (Auto) 70, Lymphocytes (%) (Auto) 13, Monocytes (%) (Auto) 9, Eosinophils (%) (Auto) 8, Basophils (%) (Auto) 0, Neutrophils # (Auto) 7.0, Lymphocytes # (Auto) 1.3, Monocytes # (Auto) 0.9, Eosinophils # (Auto) 0.8H, Basophils # (Auto) 0.0, Immature Granulocyte # (Auto) 0.1, Sodium Level 141, Potassium Level 4.1, Chloride Level 100, Carbon Dioxide Level 32, Anion Gap 9, Blood Urea Nitrogen 9, Creatinine 0.63, Estimat Glomerular Filtration Rate > 60, BUN/Creatinine Ratio 14, Glucose Level 101, Calcium Level 9.1, Corrected Calcium 9.8, Total Bilirubin 0.7, Aspartate Amino Transf (AST/SGOT) 19, Alanine Aminotransferase (ALT/SGPT) 15, Alkaline Phosphatase 107, Total Protein 6.5, Albumin 3.1L 10/27/20 11:11: Glucometer 230H Microbiology 10/19/20 MRSA Screen - Final, Complete MRSA not isolated Pending Labs Microbiology Date/Time Source Procedure Growth Status 10/19/20 13:33 Nasal MRSA Screen - Final MRSA not isolated Complete Laboratory Tests 10/19/20 03:05: Glucometer 332 10/19/20 03:27: White Blood Count 10.8, Red Blood Count 4.08, Hemoglobin 11.6, Hematocrit 36, Mean Corpuscular Volume 89, Mean Corpuscular Hemoglobin 28, Mean Corpuscular Hemoglobin Concent 32, Red Cell Distribution Width 14.6, Platelet Count 285, Mean Platelet Volume 10.9, Immature Granulocyte % (Auto) 1, Neutrophils (%) (Auto) 92, Lymphocytes (%) (Auto) 6, Monocytes (%) (Auto) 1, Eosinophils (%) (Auto) 0, Basophils (%) (Auto) 0, Neutrophils # (Auto) 9.9, Lymphocytes # (Auto) 0.7, Monocytes # (Auto) 0.1, Eosinophils # (Auto) 0.0, Basophils # (Auto) 0.0, Immature Granulocyte # (Auto) 0.1, Neutrophils % (Manual) 94, Lymphocytes % (Manual) 5, Monocytes % (Manual) 1, Eosinophils % (Manual) 0, Basophils % (Manual) 0, Band Neutrophils 0, Blood Morphology Comment NORMAL, Sodium Level 140, Potassium Level 4.7, Chloride Level 101, Carbon Dioxide Level 22, Anion Gap 17, Blood Urea Nitrogen 25, Creatinine 0.89, Estimat Glomerular Filtration Rate > 60, BUN/Creatinine Ratio 28, Glucose Level 344, Calcium Level 9.5, Corrected Calcium 9.6, Magnesium Level 2.0, Total Bilirubin 0.8, Aspartate Amino Transf (AST/SGOT) 25, Alanine Aminotransferase (ALT/SGPT) 21, Alkaline Phosphatase 151, Troponin I < 0.028, Total Protein 8.3, Albumin 3.9, Amylase Level 54, Lipase 13, Thyroid Stimulating Hormone (TSH) 0.10, Free Thyroxine 1.44 10/19/20 03:43: Urine Color YELLOW, Urine Clarity CLEAR, Urine pH 5.0, Urine Specific [place] >= 1.030, Urine Protein TRACE, Urine Glucose (UA) 3+, Urine Ketones 1+, Urine Nitrite NEGATIVE, Urine Bilirubin NEGATIVE, Urine Urobilinogen 0.2, Urine Leukocyte Esterase NEGATIVE, Urine RBC (Auto) TRACE-I, Urine RBC RARE, Urine WBC RARE, Urine Squamous Epithelial Cells 5-10, Urine Crystals NONE, Urine Bacteria NEGATIVE, Urine Casts NONE, Urine Mucus NEGATIVE, Urine Culture Indicated NO 10/19/20 04:30: SARS-CoV-2 RNA (RT-PCR) Not Detected 10/19/20 05:07: Glucometer 279 10/19/20 08:18: Glucometer 321 10/19/20 10:23: Glucometer 405 10/19/20 11:02: Glucometer 341 10/19/20 17:54: Glucometer 192 10/19/20 21:40: Glucometer 104 10/20/20 02:18: White Blood Count 12.5, Red Blood Count 3.71, Hemoglobin 10.6, Hematocrit 33, Mean Corpuscular Volume 90, Mean Corpuscular Hemoglobin 29, Mean Corpuscular Hemoglobin Concent 32, Red Cell Distribution Width 15.5, Platelet Count 311, Mean Platelet Volume 10.6, Immature Granulocyte % (Auto) 1, Neutrophils (%) (Auto) 83, Lymphocytes (%) (Auto) 9, Monocytes (%) (Auto) 7, Eosinophils (%) (Auto) 0, Basophils (%) (Auto) 0, Neutrophils # (Auto) 10.4, Lymphocytes # (Auto) 1.1, Monocytes # (Auto) 0.9, Eosinophils # (Auto) 0.0, Basophils # (Auto) 0.0, Immature Granulocyte # (Auto) 0.1, Sodium Level 146, Potassium Level 3.8, Chloride Level 111, Carbon Dioxide Level 20, Anion Gap 15, Blood Urea Nitrogen 25, Creatinine 0.85, Estimat Glomerular Filtration Rate > 60, BUN/Creatinine Ratio 29, Glucose Level 149, Calcium Level 9.1, Corrected Calcium 9.5, Total Bilirubin 0.8, Aspartate Amino Transf (AST/SGOT) 24, Alanine Aminotransferase (ALT/SGPT) 19, Alkaline Phosphatase 113, Total Protein 7.2, Albumin 3.5 10/20/20 11:16: Glucometer 350 10/20/20 15:19: Glucometer 328 10/20/20 20:35: Glucometer 251 10/21/20 05:51: Glucometer 72 10/21/20 06:31: White Blood Count 12.9, Red Blood Count 3.68, Hemoglobin 10.5, Hematocrit 34, Mean Corpuscular Volume 91, Mean Corpuscular Hemoglobin 29, Mean Corpuscular Hemoglobin Concent 31, Red Cell Distribution Width 15.5, Platelet Count 288, Mean Platelet Volume 10.2, Immature Granulocyte % (Auto) 1, Neutrophils (%) (Auto) 78, Lymphocytes (%) (Auto) 13, Monocytes (%) (Auto) 8, Eosinophils (%) (Auto) 1, Basophils (%) (Auto) 0, Neutrophils # (Auto) 10.0, Lymphocytes # (Auto) 1.7, Monocytes # (Auto) 1.0, Eosinophils # (Auto) 0.1, Basophils # (Auto) 0.0, Immature Granulocyte # (Auto) 0.1, Sodium Level 144, Potassium Level 3.6, Chloride Level 110, Carbon Dioxide Level 25, Anion Gap 9, Blood Urea Nitrogen 22, Creatinine 0.75, Estimat Glomerular Filtration Rate > 60, BUN/Creatinine Ratio 29, Glucose Level 72, Calcium Level 9.5, Corrected Calcium 9.8, Total Bilirubin 0.8, Aspartate Amino Transf (AST/SGOT) 39, Alanine Aminotransferase (ALT/SGPT) 23, Alkaline Phosphatase 111, Total Protein 7.0, Albumin 3.6 10/21/20 11:06: Blood Gas Puncture Site L RAD, Blood Gas Patient Temperature 37.0, Arterial Blood pH 7.37, Arterial Blood Partial Pressure CO2 42, Arterial Blood Partial Pressure O2 72, Arterial Blood HCO3 24, Arterial Blood Total CO2 24.9, Arterial Blood Oxygen Saturation 95, Arterial Blood Base Excess -0.9, Sumit Test YES-POS, Blood Gas Ventilator Setting NO, Blood Gas Inspired Oxygen ROOM AIR 10/21/20 11:08: Ammonia 27 10/21/20 11:25: Glucometer 187 10/21/20 16:30: Glucometer 196 10/21/20 19:46: Glucometer 47 10/21/20 21:12: Glucometer 103 10/22/20 05:19: Glucometer 184 10/22/20 08:10: White Blood Count 7.3, Red Blood Count 3.24, Hemoglobin 9.3, Hematocrit 30, Mean Corpuscular Volume 92, Mean Corpuscular Hemoglobin 29, Mean Corpuscular Hemoglobin Concent 31, Red Cell Distribution Width 15.4, Platelet Count 235, Mean Platelet Volume 10.5, Immature Granulocyte % (Auto) 1, Neutrophils (%) (Auto) 67, Lymphocytes (%) (Auto) 15, Monocytes (%) (Auto) 11, Eosinophils (%) (Auto) 6, Basophils (%) (Auto) 0, Neutrophils # (Auto) 4.9, Lymphocytes # (Auto) 1.1, Monocytes # (Auto) 0.8, Eosinophils # (Auto) 0.4, Basophils # (Auto) 0.0, Immature Granulocyte # (Auto) 0.0, Sodium Level 139, Potassium Level 4.1, Chloride Level 107, Carbon Dioxide Level 26, Anion Gap 6, Blood Urea Nitrogen 21, Creatinine 0.79, Estimat Glomerular Filtration Rate > 60, BUN/Creatinine Ratio 27, Glucose Level 221, Calcium Level 8.5, Corrected Calcium 9.1, Total Bilirubin 0.9, Aspartate Amino Transf (AST/SGOT) 29, Alanine Aminotransferase (ALT/SGPT) 23, Alkaline Phosphatase 99, Total Protein 6.4, Albumin 3.2 10/22/20 11:29: Glucometer 229 10/22/20 16:32: Glucometer 312 10/22/20 21:06: Glucometer 273 10/23/20 04:35: White Blood Count 9.2, Red Blood Count 3.08, Hemoglobin 9.0, Hematocrit 28, Mean Corpuscular Volume 91, Mean Corpuscular Hemoglobin 29, Mean Corpuscular Hemoglobin Concent 32, Red Cell Distribution Width 14.9, Platelet Count 207, Mean Platelet Volume 10.6, Immature Granulocyte % (Auto) 1, Neutrophils (%) (Auto) 73, Lymphocytes (%) (Auto) 9, Monocytes (%) (Auto) 12, Eosinophils (%) (Auto) 5, Basophils (%) (Auto) 0, Neutrophils # (Auto) 6.7, Lymphocytes # (Auto) 0.9, Monocytes # (Auto) 1.1, Eosinophils # (Auto) 0.5, Basophils # (Auto) 0.0, Immature Granulocyte # (Auto) 0.1, Sodium Level 138, Potassium Level 4.2, Chloride Level 105, Carbon Dioxide Level 23, Anion Gap 10, Blood Urea Nitrogen 13, Creatinine 0.70, Estimat Glomerular Filtration Rate > 60, BUN/Creatinine Ratio 19, Glucose Level 134, Calcium Level 8.3, Corrected Calcium 9.0, Total Bilirubin 0.8, Aspartate Amino Transf (AST/SGOT) 28, Alanine Aminotransferase (ALT/SGPT) 21, Alkaline Phosphatase 91, Total Protein 6.6, Albumin 3.1 10/23/20 11:14: Glucometer 210 10/23/20 16:25: Glucometer 178 10/23/20 20:02: Glucometer 257 10/24/20 05:02: Glucometer 124 10/24/20 05:49: White Blood Count 9.1, Red Blood Count 2.79, Hemoglobin 8.1, Hematocrit 26, Mean Corpuscular Volume 93, Mean Corpuscular Hemoglobin 29, Mean Corpuscular Hemoglobin Concent 31, Red Cell Distribution Width 14.9, Platelet Count 194, Mean Platelet Volume 10.6, Immature Granulocyte % (Auto) 1, Neutrophils (%) (Auto) 72, Lymphocytes (%) (Auto) 11, Monocytes (%) (Auto) 11, Eosinophils (%) (Auto) 5, Basophils (%) (Auto) 0, Neutrophils # (Auto) 6.6, Lymphocytes # (Auto) 1.0, Monocytes # (Auto) 1.0, Eosinophils # (Auto) 0.4, Basophils # (Auto) 0.0, Immature Granulocyte # (Auto) 0.1, Sodium Level 139, Potassium Level 3.8, Chloride Level 105, Carbon Dioxide Level 26, Anion Gap 8, Blood Urea Nitrogen 12 , Creatinine 0.70, Estimat Glomerular Filtration Rate > 60, BUN/Creatinine Ratio 17, Glucose Level 124, Calcium Level 8.3, Corrected Calcium 9.2, Total Bilirubin 0.8, Aspartate Amino Transf (AST/SGOT) 16, Alanine Aminotransferase (ALT/SGPT) 20, Alkaline Phosphatase 102, Total Protein 6.0, Albumin 2.9 10/24/20 11:14: Glucometer 318 10/24/20 15:32: Glucometer 230 10/24/20 20:04: Glucometer 93 10/24/20 21:38: Glucometer 110 10/25/20 05:10: White Blood Count 10.2, Red Blood Count 2.91, Hemoglobin 8.3, Hematocrit 26, Mean Corpuscular Volume 91, Mean Corpuscular Hemoglobin 29, Mean Corpuscular Hemoglobin Concent 31, Red Cell Distribution Width 15.0, Platelet Count 254, Mean Platelet Volume 10.9, Immature Granulocyte % (Auto) 1, Neutrophils (%) (Auto) 74, Lymphocytes (%) (Auto) 13, Monocytes (%) (Auto) 8, Eosinophils (%) (Auto) 4, Basophils (%) (Auto) 0, Neutrophils # (Auto) 7.5, Lymphocytes # (Auto) 1.4, Monocytes # (Auto) 0.8, Eosinophils # (Auto) 0.4, Basophils # (Auto) 0.0, Immature Granulocyte # (Auto) 0.1, Sodium Level 143, Potassium Level 3.9, Chloride Level 106, Carbon Dioxide Level 27, Anion Gap 10, Blood Urea Nitrogen 11, Creatinine 0.64, Estimat Glomerular Filtration Rate > 60, BUN/Creatinine Ratio 17, Glucose Level 94, Calcium Level 8.8, Corrected Calcium 9.7, Iron Level 19, Total Bilirubin 0.7, Aspartate Amino Transf (AST/SGOT) 15, Alanine Aminotransferase (ALT/SGPT) 18, Alkaline Phosphatase 112, Total Protein 6.2, Albumin 2.9 10/25/20 05:21: Glucometer 86 10/25/20 10:55: Glucometer 151 10/25/20 15:49: Glucometer 127 10/25/20 20:10: Glucometer 134 10/26/20 05:50: White Blood Count 9.4, Red Blood Count 3.01, Hemoglobin 8.6, Hematocrit 27, Mean Corpuscular Volume 91, Mean Corpuscular Hemoglobin 29, Mean Corpuscular Hemoglobin Concent 31, Red Cell Distribution Width 15.0, Platelet Count 270, Mean Platelet Volume 10.1, Immature Granulocyte % (Auto) 1, Neutrophils (%) (Auto) 74, Lymphocytes (%) (Auto) 10, Monocytes (%) (Auto) 9, Eosinophils (%) (Auto) 6, Basophils (%) (Auto) 0, Neutrophils # (Auto) 7.0, Lymphocytes # (Auto) 0.9, Monocytes # (Auto) 0.8, Eosinophils # (Auto) 0.6, Basophils # (Auto) 0.0, Immature Granulocyte # (Auto) 0.1, Sodium Level 143, Potassium Level 4.0, Chloride Level 104, Carbon Dioxide Level 30, Anion Gap 9, Blood Urea Nitrogen 8, Creatinine 0.59, Estimat Glomerular Filtration Rate > 60, BUN/Creatinine Ratio 14, Glucose Level 96, Calcium Level 8.9, Corrected Calcium 9.8, Total Bilirubin 0.7, Aspartate Amino Transf (AST/SGOT) 15, Alanine Aminotransferase (ALT/SGPT) 18, Alkaline Phosphatase 107, Total Protein 6.1, Albumin 2.9 10/26/20 10:45: Glucometer 188 10/26/20 15:56: Glucometer 163 10/26/20 20:15: Glucometer 94 10/27/20 05:01: Glucometer 104 10/27/20 05:15: White Blood Count 10.0, Red Blood Count 3.14, Hemoglobin 9.0, Hematocrit 29, Mean Corpuscular Volume 91, Mean Corpuscular Hemoglobin 29, Mean Corpuscular Hemoglobin Concent 31, Red Cell Distribution Width 15.0, Platelet Count 306, Mean Platelet Volume 10.1, Immature Granulocyte % (Auto) 1, Neutrophils (%) (Auto) 70, Lymphocytes (%) (Auto) 13, Monocytes (%) (Auto) 9, Eosinophils (%) (Auto) 8, Basophils (%) (Auto) 0, Neutrophils # (Auto) 7.0, Lymphocytes # (Auto) 1.3, Monocytes # (Auto) 0.9, Eosinophils # (Auto) 0.8, Basophils # (Auto) 0.0, Immature Granulocyte # (Auto) 0.1, Sodium Level 141, Potassium Level 4.1, Chloride Level 100, Carbon Dioxide Level 32, Anion Gap 9, Blood Urea Nitrogen 9, Creatinine 0.63, Estimat Glomerular Filtration Rate > 60, BUN/Creatinine Ratio 14, Glucose Level 101, Calcium Level 9.1, Corrected Calcium 9.8, Total Bilirubin 0.7, Aspartate Amino Transf (AST/SGOT) 19, Alanine Aminotransferase (ALT/SGPT) 15, Alkaline Phosphatase 107, Total Protein 6.5, Albumin 3.1 10/27/20 11:11: Glucometer 230 Discharge Home Medications: Active Scripts Active Triamterene-Hctz 37.5-25 mg Tb (Triamterene/Hydrochlorothiazid) 1 Each Tablet 1 Each PO DAILY 30 Days Pantoprazole Sodium 40 Mg Tablet.dr 40 Mg PO BID 30 Days Polyethylene Glycol 3350 17 Gm Powd.pack 17 Gm PO BID PRN 30 Days Dok (Docusate Sodium) 100 Mg Capsule 100 Mg PO BID 30 Days Percocet 5-325 mg Tablet (Oxycodone HCl/Acetaminophen) 1 Each Tablet 1 Tab PO Q4H PRN Enalapril Maleate 10 Mg Tablet 20 Mg PO BID 30 Days Amlodipine Besylate 5 Mg Tablet 10 Mg PO DAILY 30 Days Metoprolol Succinate 100 Mg Tab.er.24h 200 Mg PO BID 30 Days Doxazosin Mesylate 4 Mg Tablet 6 Mg PO BID 30 Days Clonidine HCl 0.2 Mg Tablet 0.2 Mg PO TID 30 Days Reported Diclofenac Sodium 100 Gm Gel..gram. 1 Applic TP TID PRN APPLIES TO WRIST AND/OR HANDS Tylenol Extra Strength (Acetaminophen) 500 Mg Tablet 1,000 Mg PO Q8H PRN Flaxseed Oil 1,000 Mg Capsule 2,000 Mg PO DAILY K-Tab ER (Potassium Chloride) 10 Meq Tablet.er 10 Meq PO DAILY Furosemide 40 Mg Tablet 40 Mg PO DAILY Isis Fuostar (Insulin Glargine,Hum.rec.anlog) 300 Unit/1 Ml Insuln.pen 25 Unit SQ HS Cetirizine HCl 10 Mg Tablet 10 Mg PO DAILY Montelukast Sodium 10 Mg Tablet 10 Mg PO HS Eliquis (Apixaban) 5 Mg Tablet 5 Mg PO BID Flecainide Acetate 150 Mg Tablet 150 Mg PO BID Pravastatin Sodium 40 Mg Tablet 40 Mg PO HS Multivitamins (Multivitamin) 1 Each Tablet 1 Tab PO DAILY Lutein 6 Mg Capsule 6 Mg PO DAILY Humalog (Insulin Lispro) 100 Unit/1 Ml Cartridge 12 Units SQ AC 12 units with meals for blood sugar <150 if BS > 150 add 2 units (14 units) if BS > 200 add 4 units (16 units) if BS > 250 add 6 units (18 units) if BS > 300 add 8 units (20 units) if BS > 350 add 10 units (20 units) Levothyroxine Sodium 100 Mcg Tablet 100 Mcg PO DAILY Instructions to patient/family Please see electronic discharge instructions given to patient. Diagnosis/Problems Diagnosis/Problems (1) Intractable nausea and vomiting Status: Acute (2) Uncontrolled hypertension Status: Acute (3) PHILLIP on CPAP (4) Valvular heart disease (5) Hypertension Status: Chronic (6) Diabetes mellitus Status: Chronic HEATHER HOOKS 14, 2021 13:20
[2020-10-27 15:06] VITALS: BP 153/68
[2020-10-27] MEDS ORDERED: meTOprolol SUCCINATE 100 MG (TOPROL XL) TAB PO SCH (21:00)
--- NOTE | 2020-10-28 09:31 | Physician Query Clarification ---
PQ-Further Specificity Admission/Discharge Admission Date: Oct 19, 2020 at 07:51 Discharge Date: Oct 27, 2020 at 15:09 Dr. Felipe, The medical record reflects the following clinical scenario: History/Risk Factors: N/V, malignant, HTN, DM w/hyperglycemia Clinical Findings: Glucose 405, BP 204/70 Treatment: Sliding scale insulin, IVF, Toprol, Catapres, Cardura Question: Can you further specify the etiology of the nausea and vomiting per the clinical indicators above? Please document a response in the Progress Notes or Discharge Summary. 1. Malignant HTN 2. Diabetes w/hyperglycemia 3. Nausea and vomiting etiology undetermined 4. Other, with explanation of the clinical findings. 5. Clinically undetermined, no explanation for the clinical findings. PHYSICIAN RESPONSE Can you specify per above: Other, explanation/clinical finding (acute gastroenteritis viral type) Please remember a lack of response to the above will prompt a phone page by [facility]/Coding staff. In responding to this query, please exercise your independent professional judgment. The purpose of this communication is to more accurately reflect the complexity of your patients condition. The fact that a question is asked does not imply that any particular answer is desired or expected. Thank you for your timely response to this clarification. Requestors name: Moises THIS PHYSICIAN QUERY FORM IS A PERMANENT PART OF THE MEDICAL RECORD MOISES RUBIN Oct 28, 2020 09:31 HEATHER FELIPE DO Oct 28, 2020 11:08
[2020-11-02] MEDS ORDERED: PATCH REMOVAL TP SCH (13:00)
== END 2020-10-27 15:09 | DRG 982 ==
LOC: EDUNIT# 02:53 → ER 02:55 → ICU 07:51 → 4TH 10-20 16:25
PROVIDERS: ADMIT Family Medicine; ATTEND Internal Medicine
PROC: 0QSG04Z Reposition Right Tibia with Internal Fixation Device, Open Approach (ICD-10-PCS; 2020-10-22)
PROC: 0QSJ04Z Reposition Right Fibula with Internal Fixation Device, Open Approach (ICD-10-PCS; principal; 2020-10-22 11:59)
DX: A08.4 Viral intestinal infection, unspecified (principal); I48.92 Unspecified atrial flutter; Z68.42 Body mass index [BMI] 45.0-49.9, adult; I38 Endocarditis, valve unspecified; S82.841A Displaced bimalleolar fracture of right lower leg, initial encounter for closed fracture; D50.9 Iron deficiency anemia, unspecified; I16.0 Hypertensive urgency; I12.9 Hypertensive chronic kidney disease with stage 1 through stage 4 chronic kidney disease, or unspecified chronic kidney disease; Z20.822 Contact with and (suspected) exposure to COVID-19; E11.22 Type 2 diabetes mellitus with diabetic chronic kidney disease; N18.9 Chronic kidney disease, unspecified; E11.65 Type 2 diabetes mellitus with hyperglycemia; G47.33 Obstructive sleep apnea (adult) (pediatric); J45.909 Unspecified asthma, uncomplicated; J42 Unspecified chronic bronchitis; I48.0 Paroxysmal atrial fibrillation; Z79.01 Long term (current) use of anticoagulants; E78.00 Pure hypercholesterolemia, unspecified; E78.2 Mixed hyperlipidemia; E11.40 Type 2 diabetes mellitus with diabetic neuropathy, unspecified; E03.9 Hypothyroidism, unspecified; E87.5 Hyperkalemia; I77.9 Disorder of arteries and arterioles, unspecified; I27.20 Pulmonary hypertension, unspecified; K21.9 Gastro-esophageal reflux disease without esophagitis; M17.11 Unilateral primary osteoarthritis, right knee; E66.01 Morbid (severe) obesity due to excess calories; H54.3 Unqualified visual loss, both eyes; Z79.4 Long term (current) use of insulin; Z82.61 Family history of arthritis; Z82.5 Family history of asthma and other chronic lower respiratory diseases; Z82.49 Family history of ischemic heart disease and other diseases of the circulatory system; Z83.3 Family history of diabetes mellitus; Z82.2 Family history of deafness and hearing loss; W19.XXXA Unspecified fall, initial encounter
CPT/HCPCS: 36410; 36415; 36600; 73600; 74177; 76000; 76937; 80053; 81000; 82140; 82150; 82805; 82947; 83540; 83690; 83735; 84439; 84443; 84484; 85007; 85025; 85027; 87081; 87636; 93005; 93041; 94664; 96361; 96374; 96375; 96376

== ENCOUNTER 2021-03-27 14:56 | Observation (INO) | payer MEDICARE, OTHER ==
[~2021-03-27] VITALS: Ht 165.1 cm; Wt 113.2 kg
[~2021-03-27 14:56] MED LIST changes: +ACET-2267 PO; +AMLO-250 PO; +DICL100G13 TP; +DOCU-239 PO; +DOXA4TAB2 PO; -FLEC150T15 PO; +FLEC150T2 PO; +FURO40TA4 PO; +METO200T48 PO; +MTP100TCR PO; -OMEP40CA27 PO; +OMEP40CA6 PO; +PANT40TA52 PO; +POLY17PO54 PO; +POTA10TA PO; -TERB250T16 PO; +TERB250T88 PO; +TRIA1TAB3 PO
[2021-03-27 15:44] VITALS: BP 144/70
[2021-03-27] MEDS ORDERED: ONDANSETRON 4 MG/2 ML (SDV) Z0FRAN IVP PRN (15:45)
[2021-03-27] MEDS ORDERED: ONDANSETRON 4 MG (ZOFRAN) ORAL DISSOLVE TAB PO PRN (15:45)
[2021-03-27] MEDS ORDERED: MELATONIN 3 MG TABLET PO PRN (15:45)
[2021-03-27] MEDS ORDERED: diphenhydrAMINE 25 MG TAB (BENADRYL) PO PRN (15:45)
[2021-03-27] MEDS ORDERED: LOPERAMIDE 2 MG (IMODIUM) TABLET PO PRN (15:45)
[2021-03-27] MEDS ORDERED: HYDROcodone/APAP 5 MG/325 MG (LORTAB) TAB PO PRN (15:45)
[2021-03-27] MEDS ORDERED: CALCIUM CARBONATE 500 MG (TUMS) TAB.CHEW PO PRN (15:45)
[2021-03-27] MEDS ORDERED: DOCUSATE SODIUM 100 MG (COLACE) CAP PO PRN (15:45)
[2021-03-27] MEDS ORDERED: ACETAMINOPHEN 325 MG TABLET PO PRN (16:30)
--- NOTE | 2021-03-27 16:30 | Diagnostic Imaging Report ---
INDICATION: Shortness of breath. COMPARISON: 07/04/2019. FINDINGS: Portable chest. The lungs are well aerated and clear. No pneumothorax or pleural effusion. Heart is upper limits of normal. No bony abnormalities. IMPRESSION: Negative portable chest. No significant change since previous exam. Dictated by: Dictated on workstation # [id number]
[2021-03-27 16:37] LABS: BASOPHILS % (AUTO) 1 % (0-10); EOSINOPHILS # (AUTO) 0.2 10^3/uL (0.0-0.3); EOSINOPHILS % (AUTO) 3 % (0-10); HEMATOCRIT 32 % (35-52); HEMOGLOBIN 9.6 g/dL (11.5-16.0); LYMPHOCYTES % (AUTO) 13 % (12-44); MEAN CORPUSCULAR HEMOGLOBIN 30 pg (25-34); MEAN CORPUSCULAR HGB CONC 30 g/dL (32-36); MEAN CORPUSCULAR VOLUME 98 fL (80-99); MONOCYTES # (AUTO) 0.6 10^3/uL (0.0-1.0); MONOCYTES % (AUTO) 8 % (0-12); NEUTROPHILS # (AUTO) 5.5 10^3/uL (1.8-7.8); NEUTROPHILS % (AUTO) 75 % (42-75); PLATELET COUNT 252 10^3/uL (130-400); WHITE BLOOD COUNT 7.3 10^3/uL (4.3-11.0)
[2021-03-27 16:49] LABS: ALBUMIN 3.9 GM/DL (3.2-4.5); POTASSIUM 5.4 MMOL/L (3.6-5.0)
[2021-03-27 16:51] LABS: CALCIUM 9.1 MG/DL (8.5-10.1)
[2021-03-27 16:52] LABS: TOTAL PROTEIN 7.4 GM/DL (6.4-8.2)
[2021-03-27 16:54] LABS: BILIRUBIN,TOTAL 0.5 MG/DL (0.1-1.0)
[2021-03-27 16:55] LABS: CREATININE SERUM 0.97 MG/DL (0.60-1.30)
[2021-03-27] MEDS: NS IV 1000 ML 1,000 ML IV SCH (17:31)
[2021-03-27] MEDS: polyethylene glycoL POWDER 17 GM (MIRALAX) PACK PO SCH (19:23)
[2021-03-27] MEDS: SENNA W/DOCUSATE (SENOKOT S) TABLET PO SCH (19:23)
[2021-03-27 20:08] VITALS: BP 166/51
[2021-03-27] MEDS ORDERED: INSULIN GLARGINE HUM REC ANLOG 25 UNIT SQ SCH (21:00)
[2021-03-27] MEDS ORDERED: [UNRECOGNIZED DRUG - OTHER] SQ SCH (21:00)
[2021-03-27] MEDS ORDERED: MONTELUKAST 10 MG (SINGULAIR) TAB PO SCH (21:00)
--- NOTE | 2021-03-27 21:02 | Progress Note ---
Progress Note Pt is a 71-year old F presenting with low BP Pt stated that she has not had a lot of stamina lately. Pt has been going to PT but she has not been doing it at home so she thinks some of it is her fault, but the last few days, she just can't get up to do anything. Pt stated that on Tuesday, she felt very bad. She told her and he said to check her BP and it was low and her pulse has been low too. Pt stopped taking the Triamterene HCTZ on Tuesday because that affects her heart too. Her pulse was low today. Pt looks very pale today and she is having SOB when she walks around. I stated that I think her Hemoglobin is low right now. I stated that we could have her get some labs done. I stated that if the Pt is running in the 7's then we check the iron with it and then all we have to do is do an iron infusion and she is better. I stated that she is anemic. Her conjunctiva is very pale. Pt has never had a colonoscopy. I stated that she really needs one. I stated that we have a couple of options. I stated that I think we should put the Pt in the hospital for observation and we can check labs and get her the treatment we need. I stated that we need to adjust some medications also. Pt stated that she just does not want to go to the hospital. I stated that the hospital will be faster and we can get her a transfusion if she needs it. I stated that this could become a big issue if we do not get it under control. I stated that the Pt is probably running 6 or 7 on her hemoglobin. I stated that the hospital is a proactive thing. Pt stated that her son could go get her medications after he drops her off at the hospital. I stated that we will do the labs in the hospital and we can get her feeling better pretty quickly. Physical Examination: Pt's lungs were CTAB and I told her the heart was beating very slowly. Patient admitted to [facility]. Dr Sloan consulted. This document was scribed by HEATHER William DO Mar 27, 2021 21:02
[2021-03-27] MEDS: APIXABAN 5 MG (ELIQUIS) TABLET PO SCH (22:17)
[2021-03-27] MEDS: inSUlin ASPART (NovoLOG) 1 UNIT/0.01 ML (CHARGE PER UNIT) SC SCH (22:18)
[2021-03-27 23:44] VITALS: BP 138/69
[2021-03-28 04:03] VITALS: BP 152/70
[2021-03-28] MEDS: inSUlin ASPART (NovoLOG) 1 UNIT/0.01 ML (CHARGE PER UNIT) SC SCH ×2 (05:48→10:51)
[2021-03-28 06:28] LABS: BASOPHILS # (AUTO) 0.1 10^3/uL (0.0-0.1); BASOPHILS % (AUTO) 1 % (0-10); EOSINOPHILS # (AUTO) 0.3 10^3/uL (0.0-0.3); EOSINOPHILS % (AUTO) 4 % (0-10); HEMATOCRIT 30 % (35-52); HEMOGLOBIN 9.1 g/dL (11.5-16.0); LYMPHOCYTES # (AUTO) 1.1 10^3/uL (1.0-4.0); LYMPHOCYTES % (AUTO) 17 % (12-44); MEAN CORPUSCULAR HEMOGLOBIN 30 pg (25-34); MEAN CORPUSCULAR HGB CONC 31 g/dL (32-36); MEAN CORPUSCULAR VOLUME 98 fL (80-99); MEAN PLATELET VOLUME 10.8 fL (9.0-12.2); MONOCYTES # (AUTO) 0.6 10^3/uL (0.0-1.0); MONOCYTES % (AUTO) 9 % (0-12); NEUTROPHILS # (AUTO) 4.3 10^3/uL (1.8-7.8); NEUTROPHILS % (AUTO) 68 % (42-75); PLATELET COUNT 223 10^3/uL (130-400); WHITE BLOOD COUNT 6.4 10^3/uL (4.3-11.0)
[2021-03-28 06:44] LABS: ALBUMIN 3.5 GM/DL (3.2-4.5)
[2021-03-28 06:45] LABS: POTASSIUM 5.1 MMOL/L (3.6-5.0)
[2021-03-28 06:46] LABS: CALCIUM 8.8 MG/DL (8.5-10.1)
[2021-03-28 06:47] LABS: TOTAL PROTEIN 6.7 GM/DL (6.4-8.2)
[2021-03-28 06:49] LABS: BILIRUBIN,TOTAL 0.5 MG/DL (0.1-1.0)
[2021-03-28 06:51] LABS: CREATININE SERUM 0.81 MG/DL (0.60-1.30)
[2021-03-28] MEDS ORDERED: LEVOTHYROXINE 100 MCG (LEVOTHROID) TAB PO SCH (07:00)
[2021-03-28 07:37] VITALS: BP 176/84
--- NOTE | 2021-03-28 08:22 | History & Physical ---
History of Present Illness HPI/Chief Complaint CC: Bradycardia and hypotension with lethargy HPI: This is a 71yoWF clinic patient of mine who presented to [facility] as a direct admit who reports low heart rate and low BP and she appeared to be very pale and anemic. Decision was made to admit for observation and consult Dr Sloan to modify meds. Source: patient Exam Limitations: no limitations Date Seen 03/28/21 Time Seen by a Provider: 11:00 Attending Physician Brittany Felipe Michael P MD Referring Physician Date of Admission Mar 27, 2021 at 15:28 Home Medications & Allergies Home Medications Reviewed patient Home Medication Reconciliation performed by pharmacy medication reconciliations formula technician and/or nursing. Patients Allergies have been reviewed. Allergies Allergies Coded Allergies insulin detemir (Verified Allergy, Intermediate, RASH, takes Lantus & Humalog at home, 08/23/18) red bumps at insertion site of injection Has received regular insulin & Novolog during previous hospitalization morphine (Verified Adverse Reaction, Intermediate, Vomiting, 07/05/19) Past [id number] Hx Past Med/Social Hx: Reviewed Nursing Past Med/Soc Hx, Reviewed and Corrections made Patient Social History Marrital Status: single Employed/Student: retired Alcohol Use: Denies Use Drug of Choice: DENIES Smoking Status: Never a Smoker 2nd Hand Smoke Exposure: No Recent Foreign Travel: No Contact w/other who traveled: No Recent Hopitalizations: Yes (LEFT TKR 2-20) Immunizations Up To Date Tetanus Booster (TDap): Less than 5yrs Pediatric: No Date of Pneumonia Vaccine: Feb 21, 2017 Date of Influenza Vaccine: Dec 20, 2019 Seasonal Allergies Seasonal Allergies: No Past Medical History Surgeries: Bladder Surgery, Breast, Hysterectomy, Joint Replacement, Orthopedic Respiratory: Sleep Apnea Currently Using CPAP: Yes Currently Using BIPAP: No Cardiac: Atrial Fibrillation, Chronic Edema/Swelling, High Cholesterol, Hypertension, Rheumatic Fever Neurological: Neuropathy 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: No Sexually Transmitted Disease: No HIV/AIDS: No Hysterectomy, Menopausal Gastrointestinal: Gastroesophageal Reflux, Chronic Constipation Musculoskeletal: Arthritis Endocrine: Diabetes, Insulin dep Loss of Vision: Bilateral Hearing Impairment: Denies History of Blood Disorders: No Adverse Reaction to Blood [place]: No (N/A) Family History Arthritis 19 FATHER 19 MOTHER Asthma 19 FATHER Cardiovascular disease 19 FATHER 19 MOTHER Cataracts 19 MOTHER Deafness or hearing loss 19 FATHER Dementia 19 MOTHER Diabetes mellitus G8 SISTER G8 SISTER Glaucoma 19 FATHER Hypertension 19 MOTHER Prostate cancer 19 FATHER Respiratory disorder 19 FATHER Thyroid disease G8 SISTER Asthma, Heart Disease, Diabetes, Hypertension Review of Systems Constitutional: see HPI, malaise, weakness EENTM: no symptoms reported Respiratory: no symptoms reported Cardiovascular: no symptoms reported Gastrointestinal: no symptoms reported Genitourinary: no symptoms reported Musculoskeletal: joint pain Skin: no symptoms reported Psychiatric/Neurological: Weakness All Other Systems Reviewed Negative Unless Noted: Yes Physical Exam Physical Exam Vital Signs Vital Signs - First Documented 03/27/21 15:44 Temp 36.2 Pulse 52 Resp 18 B/P (MAP) 144/70 (94) Pulse Ox 99 O2 Delivery Room Air Capillary Refill : Height, Weight, BMI Height: 5'5.00" Weight: 226lbs. 4.0oz. 102.088940dp; 41.52 BMI Method:Stated General Appearance: No Apparent Distress, WD/WN, Chronically ill, Obese Eyes: Bilateral Eye Normal Inspection, Bilateral Eye PERRL HEENT: PERRL/EOMI, Normal ENT Inspection, Pharynx Normal Neck: Full Range of Motion, Normal Inspection, Non Tender, Supple, Carotid Bruit Respiratory: Chest Non Tender, Lungs Clear, Normal Breath Sounds, No Accessory Muscle Use, No Respiratory Distress Cardiovascular: No Edema, No Gallop, No JVD, No Murmur, Normal Peripheral Pulses, Bradycardia Gastrointestinal: Normal Bowel Sounds, No Organomegaly, No Pulsatile Mass, Non Tender, Soft Back: Normal Inspection, No CVA Tenderness, No Vertebral Tenderness Extremity: Normal Capillary Refill, Normal Inspection, Normal Range of Motion, Non Tender, No Calf Tenderness, No Pedal Edema Neurologic/Psychiatric: Alert, Oriented x3, No Motor/Sensory Deficits, Normal Mood/Affect Skin: Normal Color, Warm/Dry Lymphatic: No Adenopathy Results Results/Procedures Labs Laboratory Tests 03/27/21 16:13 03/28/21 05:55 Patient resulted labs reviewed. Assessment/Plan Admission Diagnosis Assessment: Bradycardia on antiarrhythmics AF Hypotension Anemia acute on chronic Presumed iron def Plan: Monitor closely DC home 1 dose of iron prior to DC Admission Status: Observation Diagnosis/Problems Diagnosis/Problems (1) Bradycardia (2) Hypotension BRITTANY FELIPE DO Mar 28, 2021 08:22
[2021-03-28] MEDS: NS IV 1000 ML 1,000 ML IV SCH (08:47)
[2021-03-28] MEDS ORDERED: FLECAINIDE 100 MG (TAMBOCOR) TAB PO SCH (09:00)
[2021-03-28] MEDS ORDERED: KCL 10 MEQ TAB (MICRO K) PO SCH (09:00)
[2021-03-28] MEDS ORDERED: LORATADINE (CLARITIN) 10 MG TAB PO SCH (09:00)
[2021-03-28] MEDS ORDERED: FUROSEMIDE 40 MG (LASIX) TAB PO SCH (09:00)
[2021-03-28] MEDS ORDERED: ENALAPRIL 10 MG (VASOTEC) TAB PO SCH (09:00)
--- NOTE | 2021-03-28 09:35 | Consultation-Cardiology ---
HPI-Cardiology Cardiology Consultation Date of Consultation 03/28/21 Date of Admission Time Seen by Provider: 09:29 Indication: Generalized fatigue and loss of energy HPI 71-year-old lady with history of hypertension, paroxysmal atrial fibrillation, had bilateral knee surgeries then ankle fracture, had recurrent anemia. She has been complaining of fatigue and loss of energy, admitted for further management, she was noted to be bradycardic with sinus bradycardia. Denied any syncope, no chest pain was reported. Home Medications & Allergies Allergies: Coded Allergies: insulin detemir (Verified Allergy, Intermediate, RASH, takes Lantus & Humalog at home, 08/23/18) red bumps at insertion site of injection Has received regular insulin & Novolog during previous hospitalization morphine (Verified Adverse Reaction, Intermediate, Vomiting, 07/05/19) Home Medication List Reviewed: Yes [id number] Hx Patient Social History Marital Status: Employed/Student: retired Drug of Choice: DENIES 2nd Hand Smoke Exposure: No Recent Hopitalizations: Yes (LEFT TKR 2-20) Have you traveled recently?: No Alcohol Use?: No Immunizations Up To Date Tetanus Booster (TDap): Less than 5yrs Date of Pneumonia Vaccine: Feb 21, 2017 Date of Influenza Vaccine: Dec 20, 2019 Past Medical History Discussed below Family Medical History Significant Family History: Asthma, Heart Disease, Diabetes, Hypertension Family History: Arthritis 19 FATHER 19 MOTHER Asthma 19 FATHER Cardiovascular disease 19 FATHER 19 MOTHER Cataracts 19 MOTHER Deafness or hearing loss 19 FATHER Dementia 19 MOTHER Diabetes mellitus G8 SISTER G8 SISTER Glaucoma 19 FATHER Hypertension 19 MOTHER Prostate cancer 19 FATHER Respiratory disorder 19 FATHER Thyroid disease G8 SISTER Review of Systems-General Review of Systems Constitutional: see HPI, malaise, weakness EENTM: see HPI, no symptoms reported Respiratory: see HPI; No cough, No dyspnea on exertion, No hemoptysis, No orthopnea, No phlegm, No short of breath, No stridor, No wheezing, No other Cardiovascular: see HPI; No chest pain, No edema, No Hx of Intervention, No palpitations, No syncope, No vascular heart diseas, No other Gastrointestinal: no symptoms reported, see HPI Genitourinary: no symptoms reported, see HPI Musculoskeletal: no symptoms reported, see HPI Skin: no symptoms reported, see HPI Psychiatric/Neurological: No Symptoms Reported, See HPI Reviewed Test Results Reviewed Test Results Lab Laboratory Tests Test 03/27/21 15:39 03/27/21 16:13 03/27/21 20:33 03/28/21 05:47 Range/Units Lactic Acid Level 1.00 0.50-2.00 MMOL/L White Blood Count 7.3 4.3-11.0 10^3/uL Red Blood Count 3.22 L 3.80-5.11 10^6/uL Hemoglobin 9.6 L 11.5-16.0 g/dL Hematocrit 32 L 35-52 % Mean Corpuscular Volume 98 80-99 fL Mean Corpuscular Hemoglobin 30 25-34 pg Mean Corpuscular Hemoglobin Concent 30 L 32-36 g/dL Red Cell Distribution Width 13.7 10.0-14.5 % Platelet Count 252 130-400 10^3/uL Mean Platelet Volume 11.0 9.0-12.2 fL Immature Granulocyte % (Auto) 0 % Neutrophils (%) (Auto) 75 42-75 % Lymphocytes (%) (Auto) 13 12-44 % Monocytes (%) (Auto) 8 0-12 % Eosinophils (%) (Auto) 3 0-10 % Basophils (%) (Auto) 1 0-10 % Neutrophils # (Auto) 5.5 1.8-7.8 10^3/uL Lymphocytes # (Auto) 1.0 1.0-4.0 10^3/uL Monocytes # (Auto) 0.6 0.0-1.0 10^3/uL Eosinophils # (Auto) 0.2 0.0-0.3 10^3/uL Basophils # (Auto) 0.0 0.0-0.1 10^3/uL Immature Granulocyte # (Auto) 0.0 0.0-0.1 10^3/uL Sodium Level 140 135-145 MMOL/L Potassium Level 5.4 H 3.6-5.0 MMOL/L Chloride Level 106 98-107 MMOL/L Carbon Dioxide Level 23 21-32 MMOL/L Anion Gap 11 5-14 MMOL/L Blood Urea Nitrogen 35 H 7-18 MG/DL Creatinine 0.97 0.60-1.30 MG/DL Estimat Glomerular Filtration Rate 56 BUN/Creatinine Ratio 36 Glucose Level 123 H 70-105 MG/DL Calcium Level 9.1 8.5-10.1 MG/DL Corrected Calcium 9.2 8.5-10.1 MG/DL Total Bilirubin 0.5 0.1-1.0 MG/DL Aspartate Amino Transf (AST/SGOT) 19 5-34 U/L Alanine Aminotransferase (ALT/SGPT) 12 0-55 U/L Alkaline Phosphatase 100 40-136 U/L B-Type Natriuretic Peptide 253.5 H <100.0 PG/ML Total Protein 7.4 6.4-8.2 GM/DL Albumin 3.9 3.2-4.5 GM/DL Glucometer 152 H 83 70-110 MG/DL Test 03/28/21 05:55 Range/Units White Blood Count 6.4 4.3-11.0 10^3/uL Red Blood Count 3.03 L 3.80-5.11 10^6/uL Hemoglobin 9.1 L 11.5-16.0 g/dL Hematocrit 30 L 35-52 % Mean Corpuscular Volume 98 80-99 fL Mean Corpuscular Hemoglobin 30 25-34 pg Mean Corpuscular Hemoglobin Concent 31 L 32-36 g/dL Red Cell Distribution Width 13.6 10.0-14.5 % Platelet Count 223 130-400 10^3/uL Mean Platelet Volume 10.8 9.0-12.2 fL Immature Granulocyte % (Auto) 0 % Neutrophils (%) (Auto) 68 42-75 % Lymphocytes (%) (Auto) 17 12-44 % Monocytes (%) (Auto) 9 0-12 % Eosinophils (%) (Auto) 4 0-10 % Basophils (%) (Auto) 1 0-10 % Neutrophils # (Auto) 4.3 1.8-7.8 10^3/uL Lymphocytes # (Auto) 1.1 1.0-4.0 10^3/uL Monocytes # (Auto) 0.6 0.0-1.0 10^3/uL Eosinophils # (Auto) 0.3 0.0-0.3 10^3/uL Basophils # (Auto) 0.1 0.0-0.1 10^3/uL Immature Granulocyte # (Auto) 0.0 0.0-0.1 10^3/uL Sodium Level 140 135-145 MMOL/L Potassium Level 5.1 H 3.6-5.0 MMOL/L Chloride Level 108 H 98-107 MMOL/L Carbon Dioxide Level 24 21-32 MMOL/L Anion Gap 8 5-14 MMOL/L Blood Urea Nitrogen 27 H 7-18 MG/DL Creatinine 0.81 0.60-1.30 MG/DL Estimat Glomerular Filtration Rate 70 BUN/Creatinine Ratio 33 Glucose Level 92 70-105 MG/DL Calcium Level 8.8 8.5-10.1 MG/DL Corrected Calcium 9.2 8.5-10.1 MG/DL Total Bilirubin 0.5 0.1-1.0 MG/DL Aspartate Amino Transf (AST/SGOT) 17 5-34 U/L Alanine Aminotransferase (ALT/SGPT) 10 0-55 U/L Alkaline Phosphatase 92 40-136 U/L Total Protein 6.7 6.4-8.2 GM/DL Albumin 3.5 3.2-4.5 GM/DL Physical Exam Physical Exam Vital Signs Vital Signs - First Documented 03/27/21 15:44 Temp 36.2 Pulse 52 Resp 18 B/P (MAP) 144/70 (94) Pulse Ox 99 O2 Delivery Room Air Capillary Refill : Height, Weight, BMI Height: 5'5.00" Weight: 226lbs. 4.0oz. 102.890788wd; 41.52 BMI Method:Stated General Appearance: No Apparent Distress, WD/WN Eyes: Bilateral Eye Normal Inspection, Bilateral Eye PERRL, Bilateral Eye EOMI HEENT: PERRL/EOMI, TMs Normal, Normal ENT Inspection, Pharynx Normal, Moist Mucous Membranes Neck: Full Range of Motion, Normal Inspection, Non Tender, Supple, Carotid Bruit Respiratory: Chest Non Tender, Normal Breath Sounds, No Accessory Muscle Use, No Respiratory Distress Cardiovascular: Regular Rate, Rhythm, No Edema, No Gallop, No JVD, No Murmur, Normal Peripheral Pulses Gastrointestinal: Normal Bowel Sounds, No Organomegaly, No Pulsatile Mass, Non Tender, Soft Back: Normal Inspection, No CVA Tenderness, No Vertebral Tenderness Extremity: Normal Capillary Refill, Normal Inspection, Normal Range of Motion, Non Tender, No Calf Tenderness, No Pedal Edema Neurologic/Psychiatric: Alert, Oriented x3, No Motor/Sensory Deficits, Normal Mood/Affect Skin: Normal Color, Warm/Dry Lymphatic: No Adenopathy A/P-Cardiology Admission Diagnosis Generalized fatigue Sinus bradycardia Hypertension Paroxysmal atrial fibrillation Assessment/Plan Generalized fatigue and loss of energy, multifactorial. Currently having sinus bradycardia, probably due to beta-blockers. I will decrease the dose of metoprolol and evaluate tolerance and response Paroxysmal atrial fibrillation, maintained on flecainide and Eliquis. Currently in sinus bradycardia. Severe hypertension, resistant to multiple medication, restart home medication, monitor blood pressure, I am decreasing the dose of metoprolol from 200 mg daily to 50 mg daily I am adding amlodipine 10 mg daily and evaluate tolerance and response Continue on enalapril and clonidine and monitor History of TKA in 2019, had a fall resulted in ankle fracture, had surgery in October 2020. Mild coronary artery disease by cardiac catheterization done in 2011, stress test was done in May 2018 showing no significant ischemia or infarction, followed by Dr. 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 Diabetes mellitus, followed and managed by primary care physician Hyperlipidemia followed by primary care physician Mild bilateral carotid stenosis Obesity, BMI 44. Obstructive sleep apnea. SELINA PENG MD Mar 28, 2021 09:35
[2021-03-28] MEDS ORDERED: amLODIPine 10 MG (NORVASC) TAB PO SCH (09:45)
[2021-03-28] MEDS: APIXABAN 5 MG (ELIQUIS) TABLET PO SCH (10:04)
[2021-03-28] MEDS: SENNA W/DOCUSATE (SENOKOT S) TABLET PO SCH (10:05)
[2021-03-28] MEDS: polyethylene glycoL POWDER 17 GM (MIRALAX) PACK PO SCH (10:05)
[2021-03-28] MEDS ORDERED: IRON SUCROSE 200 MG/10 ML (VENOFER) VIAL IV ONE (11:00)
[2021-03-28] MEDS ORDERED: CLN.2T PO (11:05)
[2021-03-28] MEDS ORDERED: METO50TA7 PO (11:05)
[2021-03-28] MEDS ORDERED: DOXA4TAB2 PO (11:05)
--- NOTE | 2021-03-28 11:05 | Discharge Summary ---
Diagnosis/Chief Complaint Date of Admission Mar 27, 2021 at 15:28 Date of Discharge Discharge Date: Mar 28, 2021 Discharge Diagnosis Assessment: Bradycardia on antiarrhythmics AF Hypotension Anemia acute on chronic Presumed iron def Discharge Summary Discharge Physical Examination Allergies: Coded Allergies: insulin detemir (Verified Allergy, Intermediate, RASH, takes Lantus & Humalog at home, 08/23/18) red bumps at insertion site of injection Has received regular insulin & Novolog during previous hospitalization morphine (Verified Adverse Reaction, Intermediate, Vomiting, 07/05/19) Vitals & I&Os Vital Signs Date Time Temp Pulse Resp B/P (MAP) Pulse Ox O2 Delivery O2 Flow Rate FiO2 03/28/21 14:40 35.8 52 20 182/86 95 Room Air General Appearance: Alert, Oriented X3, Cooperative Respiratory: Clear to Auscultation Cardiovascular: Regular Rate Hospital Course Was the Problem List Reviewed?: Yes See H&P Labs (last 24 hrs) Laboratory Tests 03/27/21 15:39: Lactic Acid Level 1.00 03/27/21 16:13: White Blood Count 7.3, Red Blood Count 3.22L, Hemoglobin 9.6L, Hematocrit 32L, Mean Corpuscular Volume 98, Mean Corpuscular Hemoglobin 30, Mean Corpuscular Hemoglobin Concent 30L, Red Cell Distribution Width 13.7, Platelet Count 252, Mean Platelet Volume 11.0, Immature Granulocyte % (Auto) 0, Neutrophils (%) (Auto) 75, Lymphocytes (%) (Auto) 13, Monocytes (%) (Auto) 8, Eosinophils (%) (Auto) 3, Basophils (%) (Auto) 1, Neutrophils # (Auto) 5.5, Lymphocytes # (Auto) 1.0, Monocytes # (Auto) 0.6, Eosinophils # (Auto) 0.2, Basophils # (Auto) 0.0, Immature Granulocyte # (Auto) 0.0, Sodium Level 140, Potassium Level 5.4H, Chloride Level 106, Carbon Dioxide Level 23, Anion Gap 11, Blood Urea Nitrogen 35H, Creatinine 0.97, Estimat Glomerular Filtration Rate 56, BUN/Creatinine Ratio 36, Glucose Level 123H, Calcium Level 9.1, Corrected Calcium 9.2, Iron Level 48, Total Iron Binding Capacity 283, Unsaturated Iron Binding Capacity 235, Transferrin % Saturation 17, Ferritin 140.4, Total Bilirubin 0.5, Aspartate Amino Transf (AST/SGOT) 19, Alanine Aminotransferase (ALT/SGPT) 12, Alkaline Phosphatase 100, B-Type Natriuretic Peptide 253.5H, Total Protein 7.4, Albumin 3.9, Vitamin B12 Level 400 03/27/21 20:33: Glucometer 152H 03/28/21 05:47: Glucometer 83 03/28/21 05:55: White Blood Count 6.4, Red Blood Count 3.03L, Hemoglobin 9.1L, Hematocrit 30L, Mean Corpuscular Volume 98, Mean Corpuscular Hemoglobin 30, Mean Corpuscular Hemoglobin Concent 31L, Red Cell Distribution Width 13.6, Platelet Count 223, Mean Platelet Volume 10.8, Immature Granulocyte % (Auto) 0, Neutrophils (%) (Auto) 68, Lymphocytes (%) (Auto) 17, Monocytes (%) (Auto) 9, Eosinophils (%) (Auto) 4, Basophils (%) (Auto) 1, Neutrophils # (Auto) 4.3, Lymphocytes # (Auto) 1.1, Monocytes # (Auto) 0.6, Eosinophils # (Auto) 0.3, Basophils # (Auto) 0.1, Immature Granulocyte # (Auto) 0.0, Sodium Level 140, Potassium Level 5.1H, Chloride Level 108H, Carbon Dioxide Level 24, Anion Gap 8, Blood Urea Nitrogen 27H, Creatinine 0.81, Estimat Glomerular Filtration Rate 70, BUN/Creatinine Ratio 33, Glucose Level 92, Calcium Level 8.8, Corrected Calcium 9.2, Total Bilirubin 0.5, Aspartate Amino Transf (AST/SGOT) 17, Alanine Aminotransferase (ALT/SGPT) 10, Alkaline Phosphatase 92, Total Protein 6.7, Albumin 3.5 03/28/21 10:48: Glucometer 150H Pending Labs Laboratory Tests 03/27/21 15:39: Lactic Acid Level 1.00 03/27/21 16:13: White Blood Count 7.3, Red Blood Count 3.22, Hemoglobin 9.6, Hematocrit 32, Mean Corpuscular Volume 98, Mean Corpuscular Hemoglobin 30, Mean Corpuscular Hemoglobin Concent 30, Red Cell Distribution Width 13.7, Platelet Count 252, Mean Platelet Volume 11.0, Immature Granulocyte % (Auto) 0, Neutrophils (%) (Auto) 75, Lymphocytes (%) (Auto) 13, Monocytes (%) (Auto) 8, Eosinophils (%) (Auto) 3, Basophils (%) (Auto) 1, Neutrophils # (Auto) 5.5, Lymphocytes # (Auto) 1.0, Monocytes # (Auto) 0.6, Eosinophils # (Auto) 0.2, Basophils # (Auto) 0.0, Immature Granulocyte # (Auto) 0.0, Sodium Level 140, Potassium Level 5.4, Chloride Level 106, Carbon Dioxide Level 23, Anion Gap 11, Blood Urea Nitrogen 35, Creatinine 0.97, Estimat Glomerular Filtration Rate 56, BUN/Creatinine Ratio 36, Glucose Level 123, Calcium Level 9.1, Corrected Calcium 9.2, Iron Level 48, Total Iron Binding Capacity 283, Unsaturated Iron Binding Capacity 235, Tra nsferrin % Saturation 17, Ferritin 140.4, Total Bilirubin 0.5, Aspartate Amino Transf (AST/SGOT) 19, Alanine Aminotransferase (ALT/SGPT) 12, Alkaline Phosphatase 100, B-Type Natriuretic Peptide 253.5, Total Protein 7.4, Albumin 3.9, Vitamin B12 Level 400 03/27/21 20:33: Glucometer 152 03/28/21 05:47: Glucometer 83 03/28/21 05:55: White Blood Count 6.4, Red Blood Count 3.03, Hemoglobin 9.1, Hematocrit 30, Mean Corpuscular Volume 98, Mean Corpuscular Hemoglobin 30, Mean Corpuscular Hemoglobin Concent 31, Red Cell Distribution Width 13.6, Platelet Count 223, Mean Platelet Volume 10.8, Immature Granulocyte % (Auto) 0, Neutrophils (%) (Auto) 68, Lymphocytes (%) (Auto) 17, Monocytes (%) (Auto) 9, Eosinophils (%) (Auto) 4, Basophils (%) (Auto) 1, Neutrophils # (Auto) 4.3, Lymphocytes # (Auto) 1.1, Monocytes # (Auto) 0.6, Eosinophils # (Auto) 0.3, Basophils # (Auto) 0.1, Immature Granulocyte # (Auto) 0.0, Sodium Level 140, Potassium Level 5.1, Chloride Level 108, Carbon Dioxide Level 24, Anion Gap 8, Blood Urea Nitrogen 27, Creatinine 0.81, Estimat Glomerular Filtration Rate 70, BUN/Creatinine Ratio 33, Glucose Level 92, Calcium Level 8.8, Corrected Calcium 9.2, Total Bilirubin 0.5, Aspartate Amino Transf (AST/SGOT) 17, Alanine Aminotransferase (ALT/SGPT) 10, Alkaline Phosphatase 92, Total Protein 6.7, Albumin 3.5 03/28/21 10:48: Glucometer 150 Discharge Home Medications: Active Scripts Active Metoprolol Succinate 50 Mg Tab.er.24h 50 Mg PO DAILY Doxazosin Mesylate 4 Mg Tablet 6 Mg PO BID 30 Days as needed for SBP>170 Clonidine HCl 0.2 Mg Tablet 0.2 Mg PO TID 30 Days as needed for SBP>170 Pantoprazole Sodium 40 Mg Tablet.dr 40 Mg PO BID 30 Days Polyethylene Glycol 3350 17 Gm Powd.pack 17 Gm PO BID PRN 30 Days Dok (Docusate Sodium) 100 Mg Capsule 100 Mg PO BID 30 Days Percocet 5-325 mg Tablet (Oxycodone HCl/Acetaminophen) 1 Each Tablet 1 Tab PO Q4H PRN Enalapril Maleate 10 Mg Tablet 20 Mg PO BID 30 Days Amlodipine Besylate 5 Mg Tablet 10 Mg PO DAILY 30 Days Reported Diclofenac Sodium 100 Gm Gel..gram. 1 Applic TP TID PRN APPLIES TO WRIST AND/OR HANDS Tylenol Extra Strength (Acetaminophen) 500 Mg Tablet 1,000 Mg PO Q8H PRN Flaxseed Oil 1,000 Mg Capsule 2,000 Mg PO DAILY Furosemide 40 Mg Tablet 40 Mg PO DAILY Toukevon Solostar (Insulin Glargine,Hum.rec.anlog) 300 Unit/1 Ml Insuln.pen 25 Unit SQ HS Cetirizine HCl 10 Mg Tablet 10 Mg PO DAILY Montelukast Sodium 10 Mg Tablet 10 Mg PO HS Eliquis (Apixaban) 5 Mg Tablet 5 Mg PO BID Flecainide Acetate 150 Mg Tablet 150 Mg PO BID Pravastatin Sodium 40 Mg Tablet 40 Mg PO HS Multivitamins (Multivitamin) 1 Each Tablet 1 Tab PO DAILY Lutein 6 Mg Capsule 6 Mg PO DAILY Humalog (Insulin Lispro) 100 Unit/1 Ml Cartridge 12 Units SQ AC 12 units with meals for blood sugar <150 if BS > 150 add 2 units (14 units) if BS > 200 add 4 units (16 units) if BS > 250 add 6 units (18 units) if BS > 300 add 8 units (20 units) if BS > 350 add 10 units (20 units) Levothyroxine Sodium 100 Mcg Tablet 100 Mcg PO DAILY Instructions to patient/family Please see electronic discharge instructions given to patient. HEATHER HOOKS DO Mar 28, 2021 11:05
[2021-03-28 11:42] VITALS: BP 182/86
--- NOTE | 2021-03-28 14:11 | Consultation - Surgery ---
ELAN WAGONER 03/28/21 1411: History of Present Illness History of Present Illness Patient Consulted On(taylor/time) 03/28/21 14:05 Date Seen by Provider: Mar 28, 2021 Time Seen by Provider: 14:05 Reason for Visit: Generalized fatigue and loss of energy History of Present Illness Bernadette Durham is a 71 yo female who has a history of HTN, T2DM, Paroxysmal A-FIB, and PHILLIP who presents for evaluation and management of significant fatigue; she states that she has had bright red blood per rectum for the past 3- 4 months. She denies any pain and has an appetite. She states that she has dyspnea on exertion for which she is seeing PT; however, the recent decline in energy prevented her from going to her last appointment last Tuesday. Currently on Eliquis for A-fib. Today she is sitting in recliner, eating lunch; she is to be D/C today, will follow-up on Tuesday as outpatient to Dr. Diallo's clinic to be counseled about colonoscopy prep. Allergies and Home Medications Allergies Coded Allergies: insulin detemir (Verified Allergy, Intermediate, RASH, takes Lantus & Humalog at home, 08/23/18) red bumps at insertion site of injection Has received regular insulin & Novolog during previous hospitalization morphine (Verified Adverse Reaction, Intermediate, Vomiting, 07/05/19) Patient Home Medication List Acetaminophen (Tylenol Extra Strength) 500 Mg Tablet, 1,000 MG PO Q8H PRN for PAIN-MILD (1-4), (Reported) Entered as Reported by: YISSEL DODSON on 10/20/20 1226 Amlodipine Besylate (Amlodipine Besylate) 5 Mg Tablet, 10 MG PO DAILY Prescribed by: HEATHER HOOKS on 10/27/20 1318 Apixaban (Eliquis) 5 Mg Tablet, 5 MG PO BID, (Reported) Entered as Reported by: ALTAF MARAVILLA on 08/01/171626 Last Action: Continued Cetirizine HCl (Cetirizine HCl) 10 Mg Tablet, 10 MG PO DAILY, (Reported) Entered as Reported by: ALTAF MARAVILLA on 08/01/171626 Last Action: Converted Clonidine HCl (Clonidine HCl) 0.2 Mg Tablet, 0.2 MG PO TID Prescribed by: HEATHER HOOKS on 03/28/21 1105 Diclofenac Sodium (Diclofenac Sodium) 100 Gm Gel..gram., 1 APPLIC TP TID PRN for PAIN-BREAKTHROUGH, (Reported) Entered as Reported by: YISSEL DODSON on 10/20/20 1226 Docusate Sodium (Dok) 100 Mg Capsule, 100 MG PO BID Prescribed by: HEATHER HOOKS on 10/27/20 1318 Doxazosin Mesylate (Doxazosin Mesylate) 4 Mg Tablet, 6 MG PO BID Prescribed by: HEATHER HOOKS on 03/28/21 110 Enalapril Maleate (Enalapril Maleate) 10 Mg Tablet, 20 MG PO BID Prescribed by: HEATHER HOOKS on 10/27/20 1318 Last Action: Continued Flaxseed Oil (Flaxseed Oil) 1,000 Mg Capsule, 2,000 MG PO DAILY, (Reported) Entered as Reported by: YISSEL DODSON on 10/20/20 1226 Flecainide Acetate (Flecainide Acetate) 150 Mg Tablet, 150 MG PO BID, (Reported) Entered as Reported by: ALTAF MARAVILLA on 08/01/171626 Last Action: Converted Furosemide (Furosemide) 40 Mg Tablet, 40 MG PO DAILY, (Reported) Entered as Reported by: YISSEL DODSON on 10/20/20 1226 Last Action: Continued Insulin Glargine,Hum.rec.anlog (Tojack Soljaniyaar) 300 Unit/1 Ml Insuln.pen, 25 UNIT SQ HS, (Reported) Entered as Reported by: ALTAF MARAVILLA on 06/27/19 1014 Last Action: Converted Insulin Lispro (Humalog) 100 Unit/1 Ml Cartridge, 12 UNITS SQ AC, (Reported) Entered as Reported by: ALTAF MARAVILLA on 08/01/171626 Last Action: Held Levothyroxine Sodium (Levothyroxine Sodium) 100 Mcg Tablet, 100 MCG PO DAILY, (Reported) Entered as Reported by: ALTAF MARAVILLA on 08/01/171626 Last Action: Continued Lutein (Lutein) 6 Mg Capsule, 6 MG PO DAILY, (Reported) Entered as Reported by: ALTAF MARAVILLA on 08/01/171626 Last Action: Held Metoprolol Succinate (Metoprolol Succinate) 50 Mg Tab.er.24h, 50 MG PO DAILY Prescribed by: HEATHER HOOKS on 03/28/21 1105 Montelukast Sodium (Montelukast Sodium) 10 Mg Tablet, 10 MG PO HS, (Reported) Entered as Reported by: ALTAF MARAVILLA on 08/01/17 162 Last Action: Continued Multivitamin (Multivitamins) 1 Each Tablet, 1 TAB PO DAILY, (Reported) Entered as Reported by: ALTAF MARAVILLA on 08/01/171626 Oxycodone HCl/Acetaminophen (Percocet 5-325 mg Tablet) 1 Each Tablet, 1 TAB PO Q4H PRN for PAIN-MODERATE (5-7) Prescribed by: HEATHER HOOKS on 10/27/20 131 Pantoprazole Sodium (Pantoprazole Sodium) 40 Mg Tablet.dr, 40 MG PO BID Prescribed by: HEATHER HOOKS on 10/27/20 1318 Polyethylene Glycol 3350 (Polyethylene Glycol 3350) 17 Gm Powd.pack, 17 GM PO BID PRN for CONSTIPATION-1ST LINE Prescribed by: HEATHER HOOKS on 10/27/20 131 Pravastatin Sodium (Pravastatin Sodium) 40 Mg Tablet, 40 MG PO HS, (Reported) Entered as Reported by: ALTAF MARAVILLA on 08/01/171626 Last Action: Held Discontinued Medications Metoprolol Succinate (Metoprolol Succinate) 100 Mg Tab.er.24h, 200 MG PO BID Prescribed by: HEATHER HOOKS on 10/27/20 1318 Last Action: Held Potassium Chloride (K-Tab ER) 10 Meq Tablet.er, 10 MEQ PO DAILY, (Reported) Entered as Reported by: YISSEL DODSON on 10/20/20 1226 Last Action: Continued Triamterene/Hydrochlorothiazid (Triamterene-Hctz 37.5-25 mg Tb) 1 Each Tablet, 1 EACH PO DAILY Prescribed by: HEATHER HOOKS on 10/27/20 1318 Last Action: Held Past Mlpmyns-Xoyalz-Cklnkc Hx Patient Social History Drug of Choice: DENIES 2nd Hand Smoke Exposure: No Recent Hopitalizations: Yes (LEFT TKR 2-20) Alcohol Use?: No Have you traveled recently?: No Immunizations Up To Date Tetanus Booster (TDap): Less than 5yrs PED Vaccines UTD: No Date of Pneumonia Vaccine: Feb 21, 2017 Date of Influenza Vaccine: Dec 20, 2019 Seasonal Allergies Seasonal Allergies: No Surgeries History of Surgeries: Yes (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, BILAT KNEE SCOPE, R TKR) Surgeries: Bladder Surgery, Breast, Hysterectomy, Joint Replacement, Orthopedic Respiratory History of Respiratory Disorde: Yes (HAD ASTHMA A CHILD, LUNG PROBLEMS WHEN PT GETS COLDS) Respiratory Disorders: Asthma, Chronic Bronchitis, Sleep Apnea Cardiovascular History of Cardiac Disorders: Yes (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 12) Cardiac Disorders: Atrial Fibrillation, Chronic Edema/Swelling, High Cholesterol, Hypertension, Rheumatic Fever Neurological History of Neurological Disord: Yes Neurological Disorders: Neuropathy 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 System Hx 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 Disorders: No Sexually Transmitted Disease: No HIV/AIDS: 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, 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 Genitourinary History of Genitourinary Disor: Yes (NIGHT INCONTINENCE) Gastrointestinal History of Gastrointestinal Di: Yes Gastrointestinal Disorders: Gastroesophageal Reflux, Chronic Constipation Musculoskeletal History of Musculoskeletal Dis: Yes (RT KNEE OSTEOARTHRITIS) Musculoskeletal Disorders: Arthritis Endocrine History of Endocrine Disorders: Yes (OBESITY) Endocrine Disorders: Diabetes, Insulin dep HEENT History of HEENT Disorders: Yes (GLASSES) Loss of Vision: Bilateral Hearing Impairment: Denies Cancer History of Cancer: No Psychosocial History of Psychiatric Problem: No Integumentary History of Skin or Integumenta: No Blood Transfusions History of Blood Disorders: No Adverse Reaction to a Blood Tr: No (N/A) Family Medical History Significant Family History: Asthma, Heart Disease, Diabetes, Hypertension Family Medial History: Arthritis 19 FATHER 19 MOTHER Asthma 19 FATHER Cardiovascular disease 19 FATHER 19 MOTHER Cataracts 19 MOTHER Deafness or hearing loss 19 FATHER Dementia 19 MOTHER Diabetes mellitus G8 SISTER G8 SISTER Glaucoma 19 FATHER Hypertension 19 MOTHER Prostate cancer 19 FATHER Respiratory disorder 19 FATHER Thyroid disease G8 SISTER Review of Systems-General Constitutional: No chills, No diaphoresis, No dizziness; weakness EENTM: No blurred vision, No double vision Respiratory: No cough; dyspnea on exertion Cardiovascular: No chest pain; Hx of Intervention Gastrointestinal: No abdominal pain, No dysphagia Musculoskeletal: No back pain; muscle weakness Skin: change in color (Pallor, improved since admission per patient); No change in hair/nails, No dryness Psychiatric/Neurological: Denies Headache, Denies Paresthesia Physical Exam-General Problems Physical Exam Vital Signs Vital Signs - First Documented 03/27/21 15:44 Temp 36.2 Pulse 52 Resp 18 B/P (MAP) 144/70 (94) Pulse Ox 99 O2 Delivery Room Air Capillary Refill : General Appearance: WD/WN, no apparent distress HEENT: PERRL/EOMI, normal ENT inspection Respiratory: chest non-tender, lungs clear, normal breath sounds Cardiovascular: normal peripheral pulses, regular rate, rhythm, irregularly irregular (h/o afib ) Peripheral Pulses: 2+ Radial Pulses (R), 2+ Radial Pulses (L) Gastrointestinal: non tender, soft Rectal: deferred Extremities: non-tender, normal inspection, normal capillary refill, pedal ed chloe (mild) Neurologic/Psychiatric: financial services internship II-XII nml as tested, no motor/sensory deficits, alert, normal mood/affect, oriented x 3 Skin: normal color, warm/dry Data Review Labs Laboratory Tests 03/27/21 15:39: Lactic Acid Level 1.00 03/27/21 16:13: White Blood Count 7.3, Red Blood Count 3.22L, Hemoglobin 9.6L, Hematocrit 32L, Mean Corpuscular Volume 98, Mean Corpuscular Hemoglobin 30, Mean Corpuscular Hemoglobin Concent 30L, Red Cell Distribution Width 13.7, Platelet Count 252, Mean Platelet Volume 11.0, Immature Granulocyte % (Auto) 0, Neutrophils (%) (Auto) 75, Lymphocytes (%) (Auto) 13, Monocytes (%) (Auto) 8, Eosinophils (%) (Auto) 3, Basophils (%) (Auto) 1, Neutrophils # (Auto) 5.5, Lymphocytes # (Auto) 1.0, Monocytes # (Auto) 0.6, Eosinophils # (Auto) 0.2, Basophils # (Auto) 0.0, Immature Granulocyte # (Auto) 0.0, Sodium Level 140, Potassium Level 5.4H, Chloride Level 106, Carbon Dioxide Level 23, Anion Gap 11, Blood Urea Nitrogen 35H, Creatinine 0.97, Estimat Glomerular Filtration Rate 56, BUN/Creatinine Ratio 36, Glucose Level 123H, Calcium Level 9.1, Corrected Calcium 9.2, Total Bilirubin 0.5, Aspartate Amino Transf (AST/SGOT) 19, Alanine Aminotransferase (ALT/SGPT) 12, Alkaline Phosphatase 100, B-Type Natriuretic Peptide 253.5H, T otal Protein 7.4, Albumin 3.9 03/27/21 20:33: Glucometer 152H 03/28/21 05:47: Glucometer 83 03/28/21 05:55: White Blood Count 6.4, Red Blood Count 3.03L, Hemoglobin 9.1L, Hematocrit 30L, Mean Corpuscular Volume 98, Mean Corpuscular Hemoglobin 30, Mean Corpuscular Hem oglobin Concent 31L, Red Cell Distribution Width 13.6, Platelet Count 223, Mean Platelet Volume 10.8, Immature Granulocyte % (Auto) 0, Neutrophils (%) (Auto) 68, Lymphocytes (%) (Auto) 17, Monocytes (%) (Auto) 9, Eosinophils (%) (Auto) 4, Basophils (%) (Auto) 1, Neutrophils # (Auto) 4.3, Lymphocytes # (Auto) 1.1, Monocytes # (Auto) 0.6, Eosinophils # (Auto) 0.3, Basophils # (Auto) 0.1, Immature Granulocyte # (Auto) 0.0, Sodium Level 140, Potassium Level 5.1H, Chloride Level 108H, Carbon Dioxide Level 24, Anion Gap 8, Blood Urea Nitrogen 27H, Creatinine 0.81, Estimat Glomerular Filtration Rate 70, BUN/Creatinine Ratio 33, Glucose Level 92, Calcium Level 8.8, Corrected Calcium 9.2, Total Bilirubin 0.5, Aspartate Amino Transf (AST/SGOT) 17, Alanine Aminotransferase (ALT/SGPT) 10, Alkaline Phosphatase 92, Total Protein 6.7, Albumin 3.5 03/28/21 10:48: Glucometer 150H Radiology NAME: BERNADETTE [facility] REC#: [id number] PT STATUS: ADM Marlena : 1950 PHYSICIAN: HEATHER HOOKS DO ADMIT DATE: 03/27/21/ Signed Date of Exam:03/27/21 CHEST 1 VIEW, AP/PA ONLY INDICATION: Shortness of breath. COMPARISON: 07/04/2019. FINDINGS: Portable chest. The lungs are well aerated and clear. No pneumothorax or pleural effusion. Heart is upper limits of normal. No bony abnormalities. IMPRESSION: Negative portable chest. No significant change since previous exam. Dictated by: Dictated on workstation # [id number] Dict: 03/27/21 1625 Trans: 03/27/21 1641 [id number] Interpreted by: CRISTIAN SALGADO MD Electronically signed by: CRISTIAN SALGADO MD 03/27/21 1641 Assessment/Plan Assessment/Plan Admission Diagonsis Anemia Assessment/Plan 1. Anemia 2. Hematochezia 3. Paroxysmal A-Fib =>on Eliquis 4. Sinus bradycardia => metoprolol was adjusted by cardiology 5. Hypertension 6. PHILLIP 7. T2DM Iron studies have been ordered To follow-up to Dr. Diallo's clinic on Tuesday, 03/30, to discuss colonoscopy for next week LUCAS DIALLO DO 03/28/21 1642: History of Present Illness History of Present Illness History of Present Illness Patient is 71-year-old female who has been having bright red blood per rectum for the last 3 to 4 months. Patient states that it comes and goes. Usually diarrhea makes it worse. Nothing only seems to make it better. Patient is on anticoagulant for A. fib which she takes Eliquis she states. Patient has no abdominal pain. She does feel fatigued most of the time. She also has some dyspnea on exertion. Patient also notes that she has been having a lower hemoglobin than normal. She has no nausea or vomiting at this time. She denies any fever sweats chills shortness of breath or chest pain. Patient states she is never had a colonoscopy. Patient with no other complaints. Allergies and Home Medications Allergies Coded Allergies: insulin detemir (Verified Allergy, Intermediate, RASH, takes Lantus & Humalog at home, 08/23/18) red bumps at insertion site of injection Has received regular insulin & Novolog during previous hospitalization morphine (Verified Adverse Reaction, Intermediate, Vomiting, 07/05/19) Patient Home Medication List Home Medication List Reviewed: Yes Acetaminophen (Tylenol Extra Strength) 500 Mg Tablet, 1,000 MG PO Q8H PRN for PAIN-MILD (1-4), (Reported) Entered as Reported by: YISSEL DODSON on 10/20/20 1226 Amlodipine Besylate (Amlodipine Besylate) 5 Mg Tablet, 10 MG PO DAILY Prescribed by: HEATHER HOOKS on 10/27/20 1318 Apixaban (Eliquis) 5 Mg Tablet, 5 MG PO BID, (Reported) Entered as Reported by: ALTAF MARAVILLA on 08/01/171626 Last Action: Continued Cetirizine HCl (Cetirizine HCl) 10 Mg Tablet, 10 MG PO DAILY, (Reported) Entered as Reported by: ALTAF MARAVILLA on 08/01/171626 Last Action: Converted Clonidine HCl (Clonidine HCl) 0.2 Mg Tablet, 0.2 MG PO TID Prescribed by: HEATHER HOOKS on 03/28/21 1105 Diclofenac Sodium (Diclofenac Sodium) 100 Gm Gel..gram., 1 APPLIC TP TID PRN for PAIN-BREAKTHROUGH, (Reported) Entered as Reported by: YISSEL DODSON on 10/20/20 1226 Docusate Sodium (Dok) 100 Mg Capsule, 100 MG PO BID Prescribed by: HEATHER HOOKS on 10/27/20 1318 Doxazosin Mesylate (Doxazosin Mesylate) 4 Mg Tablet, 6 MG PO BID Prescribed by: HEATHER HOOKS on 03/28/21 1105 Enalapril Maleate (Enalapril Maleate) 10 Mg Tablet, 20 MG PO BID Prescribed by: HEATHER HOOKS on 10/27/20 1318 Last Action: Continued Flaxseed Oil (Flaxseed Oil) 1,000 Mg Capsule, 2,000 MG PO DAILY, (Reported) Entered as Reported by: YISSEL DODSON on 10/20/20 1226 Flecainide Acetate (Flecainide Acetate) 150 Mg Tablet, 150 MG PO BID, (Reported) Entered as Reported by: ALTAF MARAVILLA on 08/01/171626 Last Action: Converted Furosemide (Furosemide) 40 Mg Tablet, 40 MG PO DAILY, (Reported) Entered as Reported by: YISSEL DODSON on 10/20/20 122 Last Action: Continued Insulin Glargine,Hum.rec.anlog ([place] Solostar) 300 Unit/1 Ml Insuln.pen, 25 UNIT SQ HS, (Reported) Entered as Reported by: ALTAF MARAVILLA on 06/27/19 1014 Last Action: Converted Insulin Lispro (Humalog) 100 Unit/1 Ml Cartridge, 12 UNITS SQ AC, (Reported) Entered as Reported by: ALTAF MARAVILLA on 08/01/171626 Last Action: Held Levothyroxine Sodium (Levothyroxine Sodium) 100 Mcg Tablet, 100 MCG PO DAILY, (Reported) Entered as Reported by: ALTAF MARAVILLA on 08/01/171626 Last Action: Continued Lutein (Lutein) 6 Mg Capsule, 6 MG PO DAILY, (Reported) Entered as Reported by: ALTAF MARAVILLA on 08/01/171626 Last Action: Held Metoprolol Succinate (Metoprolol Succinate) 50 Mg Tab.er.24h, 50 MG PO DAILY Prescribed by: HEATHER HOOKS on 03/28/21 1105 Montelukast Sodium (Montelukast Sodium) 10 Mg Tablet, 10 MG PO HS, (Reported) Entered as Reported by: ALTAF MARAVILLA on 08/01/171626 Last Action: Continued Multivitamin (Multivitamins) 1 Each Tablet, 1 TAB PO DAILY, (Reported) Entered as Reported by: ALTAF MARAVILLA on 08/01/171626 Oxycodone HCl/Acetaminophen (Percocet 5-325 mg Tablet) 1 Each Tablet, 1 TAB PO Q4H PRN for PAIN-MODERATE (5-7) Prescribed by: HEATHER HOOKS on 10/27/20 131 Pantoprazole Sodium (Pantoprazole Sodium) 40 Mg Tablet.dr, 40 MG PO BID Prescribed by: HEATHER HOOKS on 10/27/20 1318 Polyethylene Glycol 3350 (Polyethylene Glycol 3350) 17 Gm Powd.pack, 17 GM PO BID PRN for CONSTIPATION-1ST LINE Prescribed by: HEATHER HOOKS on 10/27/20 131 Pravastatin Sodium (Pravastatin Sodium) 40 Mg Tablet, 40 MG PO HS, (Reported) Entered as Reported by: ALTAF MARAVILLA on 08/01/171626 Last Action: Held Discontinued Medications Metoprolol Succinate (Metoprolol Succinate) 100 Mg Tab.er.24h, 200 MG PO BID Prescribed by: HEATHER HOOKS on 10/27/20 1318 Last Action: Held Potassium Chloride (K-Tab ER) 10 Meq Tablet.er, 10 MEQ PO DAILY, (Reported) Entered as Reported by: YISSEL DODSON on 10/20/20 1226 Last Action: Continued Triamterene/Hydrochlorothiazid (Triamterene-Hctz 37.5-25 mg Tb) 1 Each Tablet, 1 EACH PO DAILY Prescribed by: HEATHER HOOKS on 10/27/20 1318 Last Action: Held Past Vwfgmpi-Ssscjf-Bwznsp Hx Reviewed Nursing Assessment Reviewed/Agree w Nursing PMH: Yes Family Medical History Significant Family History: No Pertinent Family Hx Family Medial History: Arthritis 19 FATHER 19 MOTHER Asthma 19 FATHER Cardiovascular disease 19 FATHER 19 MOTHER Cataracts 19 MOTHER Deafness or hearing loss 19 FATHER Dementia 19 MOTHER Diabetes mellitus G8 SISTER G8 SISTER Glaucoma 19 FATHER Hypertension 19 MOTHER Prostate cancer 19 FATHER Respiratory disorder 19 FATHER Thyroid disease G8 SISTER Review of Systems-General Constitutional: No chills, No dizziness; weakness EENTM: No blurred vision, No double vision Respiratory: No cough; dyspnea on exertion Cardiovascular: No chest pain Gastrointestinal: No abdominal pain, No dysphagia Musculoskeletal: No back pain; muscle weakness Skin: change in color (Pallor, improved since admission per patient); No change in hair/nails, No dryness Psychiatric/Neurological: Denies Anxiety, Denies Depressed, Denies Emotional Problems, Denies Headache, Denies Paresthesia All Other Systems Reviewed Negative Unless Noted: Yes (Negative excepted noted.) Physical Exam-General Problems Physical Exam General Appearance: WD/WN, no apparent distress HEENT: PERRL/EOMI, normal ENT inspection Neck: non-tender, supple Respiratory: chest non-tender, no respiratory distress, no accessory muscle use Cardiovascular: no JVD, irregularly irregular Gastrointestinal: non tender, soft Rectal: deferred Back: no CVA tenderness, no vertebral tenderness Extremities: non-tender, normal inspection Neurologic/Psychiatric: 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 fib, diabetes Patient is a 71-year-old female with hematochezia. She was slightly anemic. Cayden espino has been having problems with the bleeding for about 3 to 4 months. She has never had a colonoscopy. We discussed that she needs to have a colonoscopy for further evaluation. Patient is being discharged so we will have her follow- up outpatient. She is on a long-term anticoagulation which will need to hold. Patient will follow up this week in the office and plan to schedule colonoscopy in the near future. Patient agrees with plan. Supervisory-Addendum Brief Verification & Attestation Participated in pt care: history, MDM, physical Personally performed: exam, history, MDM, supervision of care Care discussed with: Medical Student Procedures: n/a Results interpretation: Verified all documentation Verification and Attestation of Medical Student E/M Service A medical student performed and documented this service in my presence. I reviewed and verified all information documented by the medical student and made modifications to such information, when appropriate. I personally performed the physical exam and medical decision making. Lucas Diallo, Mar 28, 2021,16:55 ELAN WAGONER Mar 28, 2021 14:11 LUCAS DIALLO DO Mar 28, 2021 16:42
[2021-03-28 14:40] VITALS: BP 182/86
[2021-03-29] MEDS ORDERED: meTOproloL SUCCINATE 50 MG (TOPROL XL) TAB PO SCH (09:00)
== END 2021-03-28 14:42 | disposition home or self-care (01) ==
LOC: 4TH 15:28
PROVIDERS: ADMIT Internal Medicine; ATTEND Internal Medicine
DX: I95.9 Hypotension, unspecified (principal); R53.83 Other fatigue; D64.9 Anemia, unspecified; I45.89 Other specified conduction disorders; I48.0 Paroxysmal atrial fibrillation; I25.10 Atherosclerotic heart disease of native coronary artery without angina pectoris; I65.29 Occlusion and stenosis of unspecified carotid artery; E66.9 Obesity, unspecified; G47.33 Obstructive sleep apnea (adult) (pediatric); E78.00 Pure hypercholesterolemia, unspecified; I10 Essential (primary) hypertension; E11.40 Type 2 diabetes mellitus with diabetic neuropathy, unspecified; K21.9 Gastro-esophageal reflux disease without esophagitis; M19.90 Unspecified osteoarthritis, unspecified site; Z79.899 Other long term (current) drug therapy; Z79.891 Long term (current) use of opiate analgesic; Z79.1 Long term (current) use of non-steroidal anti-inflammatories (NSAID); Z79.01 Long term (current) use of anticoagulants; Z79.890 Hormone replacement therapy; Z79.4 Long term (current) use of insulin; Z68.41 Body mass index [BMI] 40.0-44.9, adult
CPT/HCPCS: 36415; 71045; 80053; 82607; 82728; 82947; 83540; 83550; 83605; 83880; 85025; 93005; G0378

== ENCOUNTER 2021-04-21 05:35 | Outpatient (CLI) | payer MEDICARE, OTHER ==
[~2021-04-21] VITALS: Ht 165.1 cm; Wt 117.5 kg
[~2021-04-21 05:35] MED LIST changes: +METO50TA7 PO; +MONT-40 PO; -MONT10TA32 PO
[2021-04-21] MEDS ORDERED: AMLO-251 PO (09:22)
[2021-04-21] MEDS ORDERED: FLEC150T2 PO (09:22)
[2021-04-21] MEDS ORDERED: DOXA4TAB2 PO (09:22)
[2021-04-21] MEDS ORDERED: OMEP20CA18 PO (09:22)
[2021-04-21] MEDS ORDERED: FURO40TA4 PO (09:22)
[2021-04-21] MEDS ORDERED: ENAL10TA16 PO (09:22)
[2021-04-21] MEDS ORDERED: CLN.2T PO (09:22)
[2021-04-21] MEDS ORDERED: DICL20GE TP (09:22)
[2021-04-21] MEDS ORDERED: FLAX10004 PO (09:22)
== END 2021-04-21 13:12 | disposition home or self-care (01) ==
LOC: PREOP 05:35
PROVIDERS: ATTEND Surgery
DX: Z01.818 Encounter for other preprocedural examination (principal)

== ENCOUNTER 2021-04-24 14:33 | Outpatient (RCR) | payer MEDICARE, OTHER ==
[~2021-04-24 14:33] MED LIST changes: +AMLO-251 PO; +DICL20GE TP
== END 2021-04-27 12:02 | disposition home or self-care (01) ==
PROVIDERS: ATTEND Orthopaedic Surgery
DX: R53.1 Weakness (principal); I10 Essential (primary) hypertension; J45.909 Unspecified asthma, uncomplicated; R26.89 Other abnormalities of gait and mobility; Z96.651 Presence of right artificial knee joint

== ENCOUNTER 2021-04-28 08:58 | Day surgery (SDC) | payer MEDICARE, OTHER ==
[~2021-04-28] VITALS: Ht 165.1 cm; Wt 117.5 kg
[2021-04-28] MEDS ORDERED: LACTATED RINGERS 1,000 ML IV ONE (09:11)
[2021-04-28] MEDS ORDERED: LACTATED RINGERS 1,000 ML IV STA (09:15)
[2021-04-28 09:30] VITALS: BP 146/65
[2021-04-28] MEDS ORDERED: MIDAZOLAM 2 MG/2 ML (VERSED) VIAL ONE (09:48)
[2021-04-28] MEDS ORDERED: PROPOFOL INJECTION 50 ML IV ONE (09:48)
--- NOTE | 2021-04-28 10:06 | Progress Note-Pre Operative ---
Pre-Operative Progress Note H&P Reviewed The H&P was reviewed, patient examined and no changes noted. Date Seen by Provider: Apr 28, 2021 Time Seen by Provider: 10:06 Date H&P Reviewed: Apr 28, 2021 Time H&P Reviewed: 10:06 Pre-Operative Diagnosis: hematochezia LUCAS DIALLO DO Apr 28, 2021 10:06
[2021-04-28 10:35] VITALS: BP 146/63
[2021-04-28 10:38] VITALS: BP 146/63
--- NOTE | 2021-04-28 10:39 | Progress Note-Post Operative ---
Post-Operative Progess Note Surgeon (s)/Research Recruiter (s) Surgeon LUCAS DIALLO DO Research Recruiter: na Pre-Operative Diagnosis hematochezia Post-Operative Diagnosis int/ext hemorrhoids Procedure & Operative Findings Date of Procedure 04/28/21 Procedure Performed/Findings colonoscopy Anesthesia Type per outreach professional Estimated Blood Loss Estimated blood loss (mL): none Specimens/Packing Specimens Removed na LUCAS DIALLO DO Apr 28, 2021 10:39
--- NOTE | 2021-04-28 10:43 | Discharge Inst-Simple/Standard ---
Discharge Inst-Standard Patient Instructions/Follow Up Plan of Care/Instructions/FU: Kamran on as needed basis. If any return of bleeding be seen at that time. Activity as Tolerated: Yes Discharge Diet: Regular Diet (high fiber) LUCAS DIALLO DO Apr 28, 2021 10:43
[2021-04-28 11:18] VITALS: BP 143/83
--- NOTE | 2021-04-28 12:30 | Anesthesia-General Post-Op ---
MAC Patient Condition Mental Status/LOC: Same as Preop Cardiovascular: Satisfactory Nausea/Vomiting: Absent Respiratory: Satisfactory Pain: Controlled Complications: Absent Post Op Complications Complications None Follow Up Care/Instructions Patient Instructions None needed. Anesthesiology Discharge Order Discharge Order Patient is doing well, no complaints, stable vital signs, no apparent adverse anesthesia problems. No complications reported per nursing. DOLORES DOBBS CRNA Apr 28, 2021 12:30
--- NOTE | 2021-04-28 17:56 | OPERATIVE REPORT ---
DATE OF SERVICE: 04/28/2021 PREOPERATIVE DIAGNOSIS: Hematochezia. POSTOPERATIVE DIAGNOSIS: Internal and external hemorrhoids. PROCEDURE: Colonoscopy. SURGEON: Lucas Andrew DO ANESTHESIA: Per CHARHOUSE WORKER. ESTIMATED BLOOD LOSS: None. COMPLICATIONS: None. INDICATIONS: The patient is a 71-year-old female with hematochezia from time to time. She understands risks and benefits of procedure and wishes to proceed. Consent was signed in the chart. DESCRIPTION OF PROCEDURE: The patient was taken to endoscopy suite, placed in left lateral recumbent position. Timeout was performed. Digital rectal exam was performed noting some internal and external hemorrhoids. No palpable polyps, masses or ulcerations. Scope was inserted in the rectum and advanced all the way to cecum with minimal difficulty. Prep was adequate. Scope was slowly retracted back. No polyps, masses or ulcerations within the cecum, ascending, transverse, descending and sigmoid colon. Once in the rectum, scope was retroflexed noting no other pathology. Scope was returned to its normal position, slowly withdrawn until completely removed. The patient tolerated procedure well without any complications, taken to recovery room in stable condition. RECOMMENDATIONS: The patient will need repeat colonoscopy if benefits outweigh the risk for screening purposes in 10 years, which likely needed due to patient's age. The patient if has any return of bleeding, we would consider reexamination. She will follow up on an as needed basis. Job ID: [id number] DocumentID: [id number] Dictated Date: 04/28/2021 10:46:05 Industrial Eng Date: 04/28/2021 17:53:58 Dictated By: LUCAS ANDREW DO
== END 2021-04-28 11:20 | disposition home or self-care (01) ==
LOC: ENDO 08:58
PROVIDERS: ATTEND Surgery
DX: K64.8 Other hemorrhoids (principal); K64.4 Residual hemorrhoidal skin tags; E03.9 Hypothyroidism, unspecified; E11.9 Type 2 diabetes mellitus without complications; E78.5 Hyperlipidemia, unspecified; G47.33 Obstructive sleep apnea (adult) (pediatric); I10 Essential (primary) hypertension; K21.9 Gastro-esophageal reflux disease without esophagitis; J45.909 Unspecified asthma, uncomplicated; Z96.653 Presence of artificial knee joint, bilateral; Z79.890 Hormone replacement therapy; Z79.01 Long term (current) use of anticoagulants; Z79.899 Other long term (current) drug therapy

== ENCOUNTER → 2021-05-12 | Outpatient (CLI) | payer MEDICARE, OTHER | LOC: CARD 10:30 | PROVIDERS: ATTEND Internal Medicine Cardiovascular Disease | DX: I08.1 Rheumatic disorders of both mitral and tricuspid valves (principal) | CPT/HCPCS: 93306 ==

== ENCOUNTER 2021-06-01 17:47 | Observation (INO) | payer MEDICARE, OTHER ==
[~2021-06-01] VITALS: Ht 165 cm; Wt 124.6 kg
[2021-06-01] MEDS ORDERED: MILK OF MAGNESIA 400 MG/5 ML 30 ML UDC PO PRN (18:00)
[2021-06-01] MEDS ORDERED: ACETAMINOPHEN 325 MG TABLET PO PRN (18:00)
[2021-06-01] MEDS ORDERED: ANTACID SUSP 30 ML UDC (MYLANTA) PO PRN (18:00)
[2021-06-01] MEDS ORDERED: NALOXONE 0.4 MG/ML 1 ML (NARCAN) VIAL IV PRN (18:00)
[2021-06-01] MEDS ORDERED: ONDANSETRON 4 MG (ZOFRAN) ORAL DISSOLVE TAB PO PRN (18:00)
[2021-06-01] MEDS ORDERED: BISACODYL 10 MG SUPP (DULCOLAX) PR PRN (18:00)
[2021-06-01] MEDS ORDERED: polyethylene glycoL POWDER 17 GM (MIRALAX) PACK PO PRN (18:00)
[2021-06-01] MEDS ORDERED: LACTULOSE SYRUP 10GM/15ML (ENULOSE) 30ML UDC PO PRN (18:00)
[2021-06-01] MEDS ORDERED: PATIENT MAY USE OWN MEDS, ALL PO SCH (18:00)
[2021-06-01] MEDS ORDERED: ONDANSETRON 4 MG/2 ML (SDV) Z0FRAN IV PRN (18:00)
[2021-06-01] MEDS ORDERED: CALCIUM CARBONATE 500 MG (TUMS) TAB.CHEW PO PRN (18:00)
[2021-06-01 19:40] VITALS: BP 158/70
--- NOTE | 2021-06-01 19:47 | Diagnostic Imaging Report ---
INDICATION: Shortness of breath COMPARISON: 03/27/2021 FINDINGS: Single view of the chest demonstrates cardiac enlargement with slight central vascular congestion. There is no pneumothorax or effusion. Osseous structures are normal. IMPRESSION: Cardiac enlargement with central vascular congestion. Dictated by: Dictated on workstation # [id number]
[2021-06-01 19:55] LABS: BASOPHILS % (AUTO) 0 % (0-10); EOSINOPHILS # (AUTO) 0.3 10^3/uL (0.0-0.3); EOSINOPHILS % (AUTO) 5 % (0-10); HEMATOCRIT 28 % (35-52); HEMOGLOBIN 8.3 g/dL (11.5-16.0); LYMPHOCYTES # (AUTO) 0.6 10^3/uL (1.0-4.0); LYMPHOCYTES % (AUTO) 8 % (12-44); MEAN CORPUSCULAR HEMOGLOBIN 29 pg (25-34); MEAN CORPUSCULAR HGB CONC 29 g/dL (32-36); MEAN CORPUSCULAR VOLUME 98 fL (80-99); MEAN PLATELET VOLUME 11.6 fL (9.0-12.2); MONOCYTES # (AUTO) 0.6 10^3/uL (0.0-1.0); MONOCYTES % (AUTO) 8 % (0-12); NEUTROPHILS # (AUTO) 5.5 10^3/uL (1.8-7.8); NEUTROPHILS % (AUTO) 79 % (42-75); PLATELET COUNT 222 10^3/uL (130-400)
[2021-06-01 20:08] LABS: EOSINOPHILS % (MANUAL) 3 %; LYMPHOCYTES % (MANUAL) 7 %; MONOCYTES % (MANUAL) 8 %; NEUTROPHILS % (MANUAL) 82 %; POLYCHROMASIA MODERATE
[2021-06-01 20:23] LABS: ALANINE AMINOTRANSFERASE 16 U/L (0-55); ALBUMIN 3.7 GM/DL (3.2-4.5); ALKALINE PHOSPHATASE 86 U/L (40-136); BILIRUBIN,TOTAL 1.1 MG/DL (0.1-1.0); BUN/CREATININE RATIO 19; CALCIUM 8.9 MG/DL (8.5-10.1); CARBON DIOXIDE 26 MMOL/L (21-32); CHLORIDE 108 MMOL/L (98-107); GFR ESTIMATED 48; GLUCOSE 77 MG/DL (70-105); POTASSIUM 4.6 MMOL/L (3.6-5.0); SODIUM 145 MMOL/L (135-145); TOTAL PROTEIN 6.6 GM/DL (6.4-8.2)
[2021-06-01 20:34] LABS: BILIRUBIN,URINE NEGATIVE (NEGATIVE); CLARITY,URINE CLEAR; COLOR,URINE YELLOW; GLUCOSE, URINE (UA) NEGATIVE (NEGATIVE); KETONES,URINE TRACE (NEGATIVE); LEUKOCYTE ESTERASE ,URINE NEGATIVE (NEGATIVE); NITRITE,URINE NEGATIVE (NEGATIVE); PH,URINE 5.5 (5-9); PROTEIN,URINE 1+ (NEGATIVE)
[2021-06-01] MEDS: inSUlin ASPART (NovoLOG) 1 UNIT/0.01 ML (CHARGE PER UNIT) SC SCH (20:38)
[2021-06-01 20:44] LABS: BACTERIA,URINE LARGE /HPF; RBC,URINE RARE /HPF; SQUAMOUS EPITHELIAL CELL,UR 0-2 /HPF
[2021-06-01] MEDS: SENNOSIDES 8.6 MG (SENOKOT) TAB PO SCH (20:45)
[2021-06-01] MEDS: DOCUSATE SODIUM 100 MG (COLACE) CAP PO SCH (20:45)
[2021-06-01] MEDS ORDERED: FUROSEMIDE 40 MG/4 ML INJ (LASIX) ONE (20:49)
[2021-06-01] MEDS: FUROSEMIDE 40 MG/4 ML INJ (LASIX) IVP SCH (20:55)
[2021-06-01] MEDS ORDERED: APIXABAN 5 MG (ELIQUIS) TABLET PO SCH (21:00)
[2021-06-01 21:10] VITALS: BP 158/70
[2021-06-01] MEDS ORDERED: RT-ALBUTEROL SULF 2.5 MG/3 ML PRE-MIX VIAL INH PRN (21:45)
[2021-06-02 00:07] VITALS: BP 165/67
[2021-06-02 05:00] VITALS: BP 152/70
[2021-06-02] MEDS: FUROSEMIDE 40 MG/4 ML INJ (LASIX) IVP SCH ×2 (05:54→16:32)
[2021-06-02 06:16] LABS: BASOPHILS % (AUTO) 1 % (0-10); EOSINOPHILS # (AUTO) 0.4 10^3/uL (0.0-0.3); EOSINOPHILS % (AUTO) 6 % (0-10); HEMATOCRIT 27 % (35-52); HEMOGLOBIN 8.1 g/dL (11.5-16.0); LYMPHOCYTES # (AUTO) 0.9 10^3/uL (1.0-4.0); LYMPHOCYTES % (AUTO) 12 % (12-44); MEAN CORPUSCULAR HEMOGLOBIN 29 pg (25-34); MEAN CORPUSCULAR HGB CONC 30 g/dL (32-36); MEAN CORPUSCULAR VOLUME 97 fL (80-99); MEAN PLATELET VOLUME 11.8 fL (9.0-12.2); MONOCYTES # (AUTO) 0.6 10^3/uL (0.0-1.0); MONOCYTES % (AUTO) 9 % (0-12); NEUTROPHILS # (AUTO) 5.4 10^3/uL (1.8-7.8); NEUTROPHILS % (AUTO) 73 % (42-75); PLATELET COUNT 215 10^3/uL (130-400); WHITE BLOOD COUNT 7.4 10^3/uL (4.3-11.0)
[2021-06-02 06:53] LABS: ALBUMIN 3.6 GM/DL (3.2-4.5); BILIRUBIN,TOTAL 1.2 MG/DL (0.1-1.0); CALCIUM 8.9 MG/DL (8.5-10.1); CREATININE SERUM 0.94 MG/DL (0.60-1.30); POTASSIUM 4.1 MMOL/L (3.6-5.0); TOTAL PROTEIN 6.8 GM/DL (6.4-8.2)
[2021-06-02] MEDS: inSUlin ASPART (NovoLOG) 1 UNIT/0.01 ML (CHARGE PER UNIT) SC SCH ×4 (06:56→22:23)
[2021-06-02 07:00] VITALS: BP 171/67
--- NOTE | 2021-06-02 08:09 | Consultation-Cardiology ---
HPI-Cardiology Cardiology Consultation: Date of Consultation 06/02/21 Time Seen by a Provider: 08:20 Date of Admission 06-01-21 Attending Physician Brittany Hooks DO Admitting Physician Brittany Hooks DO Consulting Physician Connor Dunlap MD HPI: Chief Complaint: Progressive PENA Ms. Durham is a 71 yr old female admitted to [facility] with c/o increasing SOB and LE swelling over the course of the last several days. She denies any c/o CP or palpitations. She reports she has not missed any doses of her medications. She reports she feels her breathing is better this morning, but not yet back to her baseline. She is dyspneic with conversation. No c/o n/v/d. No c/o fever or chills. No c/o cough. Review of Systems-Cardiology Review of Systems Constitutional: No chills, No fever; malaise Eyes: No vision change Ears/Nose/Throat: No epistaxis, No recent hearing loss Respiratory: As described under HPI Cardiovascular: As described under HPI Gastrointestinal: No constipation, No diarrhea, No nausea, No vomiting Genitourinary: No dysuria Musculoskeletal: no symptoms reported Skin: No rash on exposed areas, No ulcerations on exposed areas Psychiatric/Neurological: No anxiety, No depression, No seizure, No focal weakness, No syncope Hematologic: No bleeding abnormalities WWK-Cjjnxn-Qpfzca Hx Patient Social History Smoking Status: Never a Smoker 2nd Hand Smoke Exposure: No Have you traveled recently?: No Alcohol Use?: No Pt feels they are or have been: No Immunizations Up To Date Tetanus Booster (TDap): Less than 5yrs Date of Pneumonia Vaccine: Feb 21, 2017 Date of Influenza Vaccine: Feb 19, 2021 Past Medical History PMH As described under Assessment. Family Medical History Family Medical History: Reported h/o father and mother having CAD. Sisters x 2 with DM. Family History: 19 FATHER Arthritis Asthma Cardiovascular disease Deafness or hearing loss Glaucoma Prostate cancer Respiratory disorder 19 MOTHER Arthritis Cardiovascular disease Hypertension Cataracts Dementia G8 SISTER Diabetes mellitus Thyroid disease G8 SISTER Diabetes mellitus Allergies and Home Medications Allergies Coded Allergies: insulin detemir (Verified Allergy, Intermediate, RASH, takes Lantus & Humalog at home, 08/23/18) red bumps at insertion site of injection Has received regular insulin & Novolog during previous hospitalization morphine (Verified Adverse Reaction, Intermediate, Vomiting, 2/20/20) Patient Home Medication List Home Medication List Reviewed: Yes Amlodipine Besylate (Amlodipine Besylate) 5 Mg Tablet, 5 MG PO DAILY, (Reported) Entered as Reported by: YISSEL DODSON on 06/02/21836 Last Action: Held Apixaban (Eliquis) 5 Mg Tablet, 5 MG PO Q12H, (Reported) Entered as Reported by: ALTAF MARAVILLA on 08/01/171626 Last Action: Held Cetirizine HCl (Cetirizine HCl) 10 Mg Tablet, 10 MG PO DAILY, (Reported) Entered as Reported by: ALTAF MARAVILLA on 08/01/171626 Last Action: Converted Doxazosin Mesylate (Doxazosin Mesylate) 4 Mg Tablet, 4 MG PO Q12H, (Reported) Entered as Reported by: LEVI CHOI on 04/21/21921 Last Action: Held Enalapril Maleate (Enalapril Maleate) 10 Mg Tablet, 20 MG PO DAILY, (Reported) Entered as Reported by: LEVI CHOI on 04/21/21921 Last Action: Held Flecainide Acetate (Flecainide Acetate) 150 Mg Tablet, 150 MG PO Q12H, (Reported) Entered as Reported by: LEVI CHOI on 04/21/21921 Last Action: Converted Furosemide (Furosemide) 40 Mg Tablet, 40 MG PO DAILY, (Reported) Entered as Reported by: LEVI CHOI on 04/21/21921 Last Action: Held Insulin Glargine,Hum.rec.anlog (Toujeo Solostar) 300 Unit/1 Ml Insuln.pen, 25 UNIT SQ HS, (Reported) Entered as Reported by: ALTAF MARAVILLA on 06/27/19 1014 Last Action: Converted Insulin Lispro (Humalog Kwikpen) 100 Unit/1 Ml Insuln.pen, 12-20 UNITS SC AC, (Reported) Entered as Reported by: YISSEL DODSON on 06/02/21836 Last Action: Held Levothyroxine Sodium (Levothyroxine Sodium) 100 Mcg Tablet, 100 MCG PO DAILY, (Reported) Entered as Reported by: ALTAF MARAVILLA on 08/01/171626 Last Action: Continued Lutein (Lutein) 6 Mg Capsule, 6 MG PO DAILY, (Reported) Entered as Reported by: ALTAF MARAVILLA on 08/01/171626 Last Action: Held Metoprolol Succinate (Metoprolol Succinate) 50 Mg Tab.er.24h, 50 MG PO DAILY, (Reported) Entered as Reported by: YISSEL DODSON on 06/02/21836 Last Action: Continued Montelukast Sodium (Montelukast Sodium) 10 Mg Tablet, 10 MG PO HS, (Reported) Entered as Reported by: ALTAF MARAVILLA on 08/01/171626 Last Action: Continued Multivitamin (Multivitamins) 1 Each Tablet, 1 TAB PO DAILY, (Reported) Entered as Reported by: ALTAF MARAVILLA on 08/01/171626 Last Action: Continued [place]-3/Dha/Epa/Fish Oil (Fish Oil 1,400 mg Softgel) 1 Each Capsule.dr, 1 EACH PO DAILY, (Reported) Entered as Reported by: YISSEL DODSON on 06/02/21836 Last Action: Held Omeprazole (Omeprazole) 20 Mg Capsule.dr, 20 MG PO DAILY, (Reported) Entered as Reported by: LEVI CHOI on 04/21/21921 Last Action: Continued Pravastatin Sodium (Pravastatin Sodium) 40 Mg Tablet, 40 MG PO HS, (Reported) Entered as Reported by: ALTAF MARAVILLA on 08/01/171626 Last Action: Converted Discontinued Medications Amlodipine Besylate (Amlodipine Besylate) 10 Mg Tablet, 10 MG PO DAILY, (Reported) Discontinued Reason: No Longer Taking Entered as Reported by: LEVI CHOI on 04/21/21921 Last Action: Discontinued Clonidine HCl (Clonidine HCl) 0.2 Mg Tablet, 0.2 MG PO BID, (Reported) Discontinued Reason: No Longer Taking Entered as Reported by: LEVI CHOI on 04/21/21921 Last Action: Discontinued Diclofenac Sodium (Voltaren Arthritis Pain) 20 Gm Gel..gram., 20 GM TP UD, (Reported) Discontinued Reason: No Longer Taking Entered as Reported by: LEVI CHOI on 04/21/21921 Last Action: Discontinued Flaxseed Oil (Flaxseed Oil) 1,000 Mg Capsule, 1,000 MG PO BID, (Reported) Discontinued Reason: No Longer Taking Entered as Reported by: LEVI CHOI on 04/21/21 0922 Last Action: Discontinued Insulin Lispro (Humalog) 100 Unit/1 Ml Cartridge, 12 UNITS SQ AC, (Reported) Discontinued Reason: Duplicate Order Entered as Reported by: ALTAF MARAVILLA on 08/01/17 1627 Last Action: Discontinued Metoprolol Succinate (Metoprolol Succinate) 50 Mg Tab.er.24h, 50 MG PO DAILY Discontinued Reason: Duplicate Order Prescribed by: BRITTANY HOOKS on 03/28/21 1105 Last Action: Discontinued Physical Exam-Cardiology Physical Exam Vital Signs/I&O 06/03/21 06/03/21 06/03/21 06/03/21 00:06 01:00 04:32 07:00 Temp 37.0 37.0 Pulse 51 47 53 52 Resp 20 20 B/P (MAP) 146/65 (92) 160/75 (103) Pulse Ox 94 93 O2 Delivery Nasal Cannula Nasal Cannula O2 Flow Rate 1.50 1.50 06/03/21 08:00 Temp 36.4 Pulse 56 Resp 20 B/P (MAP) 174/74 (107) Pulse Ox 97 O2 Delivery Nasal Cannula O2 Flow Rate 1.50 06/02/21 23:59 Intake Total 1456 ml Output Total 4025 ml Balance -2569 ml Capillary Refill : Constitutional: AAO x 3, well-developed, well-nourished HEENT: PERRL, hearing is well preserved, oral hygience is good Neck: No carotid bruit; carotid pulses are 2 + bilaterally Respiratory: No accessory muscle use, No respiratory distress; chest expansion is symmetric, chest is bilaterally symmetric, other (diminished bases bilat; dyspneic with conversation) Cardiovascular: regular rate-rhythm; No JVD; S1 and S2 Gastrointestinal: No tender; soft, round, audible bowel sounds Extremities: other (mod bilat LE swelling; compression stockings in place) Neurologic/Psychiatric: grossly intact (moves all extremities) Skin: No rash on exposed areas, No ulcerations on exposed areas Data Review Labs Laboratory Tests 06/02/21 11:29: Glucometer 247H 06/02/21 16:43: Glucometer 281H 06/02/21 20:41: Glucometer 205H 06/03/21 05:31: Glucometer 121H 06/03/21 06:47: White Blood Count 7.3, Red Blood Count 2.90L, Hemoglobin 8.3L, Hematocrit 28L, Mean Corpuscular Volume 96, Mean Corpuscular Hemoglobin 29, Mean Corpuscular Hemoglobin Concent 30L, Red Cell Distribution Width 16.0H, Platelet Count 207, Mean Platelet Volume 11.1, Immature Granulocyte % (Auto) 0, Neutrophils (%) (Auto) 72, Lymphocytes (%) (Auto) 10L, Monocytes (%) (Auto) 10, Eosinophils (%) (Auto) 7, Basophils (%) (Auto) 1, Neutrophils # (Auto) 5.3, Lymphocytes # (Auto) 0.7L, Monocytes # (Auto) 0.7, Eosinophils # (Auto) 0.5H, Basophils # (Auto) 0.1, Immature Granulocyte # (Auto) 0.0 06/03/21 07:00: Sodium Level 142, Potassium Level 4.4, Chloride Level 102, Carbon Dioxide Level 29, Anion Gap 11, Blood Urea Nitrogen 20H, Creatinine 0.90, Estimat Glomerular Filtration Rate 68, BUN/Creatinine Ratio 22, Glucose Level 143H, Calcium Level 9.1, Corrected Calcium 9.3, Total Bilirubin 1.4H, Aspartate Amino Transf (AST/SGOT) 17, Alanine Aminotransferase (ALT/SGPT) 14, Alkaline Phosphatase 85, Total Protein 7.0, Albumin 3.7 Microbiology 06/01/21 Urine Culture - Preliminary, Resulted Gram Negative [facility] NAME: [facility] REC#: [id number] PT STATUS: ADM Marlena : 1950 PHYSICIAN: BRITTANY HOOKS DO ADMIT DATE: 06/01/21/ Signed Date of Exam:06/01/21 CHEST 1 VIEW, AP/PA ONLY INDICATION: Shortness of breath COMPARISON: 03/27/2021 FINDINGS: Single view of the chest demonstrates cardiac enlargement with slight central vascular congestion. There is no pneumothorax or effusion. Osseous structures are normal. IMPRESSION: Cardiac enlargement with central vascular congestion. Dictated by: Dictated on workstation # [id number] Dict: 06/01/211942 Trans: 06/01/211953 [facility] [id number] Interpreted by: CAMERON LEWIS Electronically signed by: CAMERON LEWIS 06/01/211953 ECG Impression ECG Initial ECG Rhythm: Normal Sinus A/P-Cardiology Assessment/Admission Diagnosis Progressive dyspnea - acute on chronic diastolic CHF HTN Ortho - S/P total left knee arthroplasty on 07-04-[address] Pagan. - H/O right ankle fx with repair in October 2020 Paroxysmal atrial flutter/fibrillation - currently controlled on therapy with flecainide, initiated by Dr Eid in EP consult in [place], [place] - Chronic Eliquis anticoag - Echo of 04/01/20: LVEF 60-65%. Grade 2 diastolic dysfunction. LA mod to sev dilated. Mild MR. PASP 50-55 mmHg mmHg - Beta-christofer reduced in Mar 2021 due to symptomatic sinus kellie on the higher dose of bb Cornary w/u - No angiographically significant coronary artery disease. Normal global left ventricular systolic function, no significant mitral regurgitation, and normal left ventricular end-diastolic pressure on cardiac catheterization in October 2011. - MPI of Jun 06, 2018 showed no evidence of any significant myocardial ischemia or infarction. LVEF 74% Maturity onset diabetes mellitus - being followed by her State Archivist, Dr. Farias. Hypothyroidism - being treated with thyroid replacement therapy. H/o hyperkalemia - Potassium level at the top limits of normal to minimally elevated. - Cessation of ISATU inhibitors does not seem to have changed this very much. Her director field services has advised continuing ISATU-inhib therapy Hyperlipidemia - being treated with statins and being followed by her State Archivist, Dr. Med Deleon Carotid dz - Mild bilat internal carotid dz per u/s of 02-04-21 Obesity - Elevated BMI of approx 43 PHILLIP - diagnosed on sleep study of 07/17/16, previously being followed by Pulmonology Discussion and Recomendations Acute on chronic diastolic CHF - treat with diuretics Uncontrolled HTN - restart home medications - stop Norvasc d/t worsening LE when on this agent Spoke with Dr. Hoosk of medical services this morning, planning on restarting Dyazide (previously had been on) Intolerant to any higher dose of BB d/t episodes of bradycardia Adjust antihypertensive regimen as indicated Continue all other home medications including OAC for stroke prophylaxis Monitor lab closely Replace electrolytes as indicated Further recs will be based on her hospital course We would like to thank Dr. Hooks for this consult ANDRIA LARRY Jun 02, 2021 08:09
[2021-06-02] MEDS ORDERED: AMLO-250 PO (08:37)
[2021-06-02] MEDS ORDERED: INSU100I23 SC (08:37)
[2021-06-02] MEDS ORDERED: OMEG-9 PO (08:37)
[2021-06-02] MEDS ORDERED: METO50TA7 PO (08:37)
[2021-06-02] MEDS ORDERED: meTOproloL SUCCINATE 50 MG (TOPROL XL) TAB PO SCH (09:45)
[2021-06-02] MEDS ORDERED: doxAzosin 4 MG (CARDURA) TAB PO SCH ×2 (09:45→11:30)
[2021-06-02] MEDS ORDERED: ENALAPRIL 10 MG (VASOTEC) TAB PO SCH (09:45)
[2021-06-02] MEDS ORDERED: FLECAINIDE 100 MG (TAMBOCOR) TAB PO SCH (09:45)
--- NOTE | 2021-06-02 10:52 | Physical Therapy Evaluation ---
PT Evaluation-General Medical Diagnosis Admission Date Jun 01, 2021 at 19:13 Medical Diagnosis: CHF Onset Date: Jun 01, 2021 Therapy Diagnosis Therapy Diagnosis: Debility, weakness Height/Weight Height (Feet): 5 Height (Inches): 5.00 Weight (Pounds): 226 Weight (Ounces): 4.0 Precautions Precautions/Isolations: Fall Prevention, Standard Precautions Referral Physician: Destinee Reason for Referral: Evaluation/Treatment Medical History Pertinent Medical History: Atrial Fib, DM, HTN, Neuropathy Current History Admitted for SOB and edema Reviewed History: Yes Social History Home: Single Level Current Living Status: Alone Entry Into Home: Stairs With Railing PT Steps Into Home: 3 PT Steps Inside Home: 0 Prior Prior Level of Function SCALE: Activities may be completed with or without assistive devices. 5-Buyrcznjdc-qrmiyvk completes the activity by him/herself with no assistance from a helper. 5-Set-up or Clean-up Assistance-helper sets up or cleans up; patient completes activity. [place] assists only prior to or following the activity. 4-Supervision or Touching Assistance-helper provides verbal cues and/or touching/steadying and/or contact guard assistance as patient completes activity. Assistance may be provided throughout the activity or intermittently. 3-Partial/Moderate Assistance-helper does LESS THAN HALF the effort. [place] lifts, holds or supports trunk or limbs, but provides less than half the effort. 2-Substantial/Maximal Assistance-helper does MORE THAN HALF the effort. [place] lifts or holds trunk or limbs and provides more than half the effort. 8-Cbwcrwstr-pjltdd does ALL the effort. Patient does none of the effort to complete the activity. Or, the assistance of 2 or more helpers is required for the patient to complete the activity. If activity was not attempted, code reason: 7-Patient Refused. 9-Not Applicable-not attempted and the patient did not perform the activity before the current illness, exacerbation or injury. 10-Not Attempted due to Environmental Limitations-(lack of equipment, weather restraints, etc.). 88-Not Attempted due to Medical Conditions or Safety Concerns. Bed Mobility: 6 Transfers (B,C,W/C): 6 Gait: 6 Stairs: 6 Indoor Mobility (Ambulation): Independent Stairs: Independent Prior Devices Use: Walker Prior Device Use: Cane PT Evaluation-Current Subjective Patient presented laying in bed and consented to walking with PT. Objective Patient Orientation: Person, Place, Time, Situation Attachments: Oxygen, Delgado Catheter ROM/Strength ROM Lower Extremities slightly limited due to edema and obesity Strength Lower Extremities 4/5 bilaterally gross strength Transfers Lying to Sitting/Side of Bed(Q: 5 Sit to Stand (QC): 4 Chair/Ejj-op-Rwypg Xfer(QC): 4 Gait Does the Patient Walk?: Yes Mode of Locomotion: Walk Anticipated Mode of Locomotion: Walk Walk 10 feet (QC): 4 Walk 50 ft with 2 Turns(QC): 4 Walk 150 ft (QC): 4 Distance: 225' Gait Assistive Device: FWW Comments/Gait Description Patient ambulated for 150' with FWW and CGA. Patient ambulated slowly Balance Sitting Static: Normal Sitting Dynamic: Normal Standing Static: Normal Standing Dynamic: Normal Assessment/Needs Patient ambulated for 225' with FWW and CGA. Patient required 3L of O2 while ambulating and reported SOB and had signs of labored breathing. Patient was CGA for all transfers. Patient reports that she is feeling better and doing better today than when she reported to the hospital yesterday and is motivated with progress. Rehab Potential: [facility] Goals Director Of First Impressions Goals PT Director Of First Impressions Goals Time Frame: Jun 13, 2021 Roll Left & Right (QC): 6 Sit to Lying (QC): 6 Lying-Sitting on Side/Bed(QC): 6 Sit to Stand (QC): 6 Chair/Nam-sd-Drfdi Xfer(QC): 6 Toilet Transfer (QC): 6 Does the Patient Walk: Yes Walk 10 feet (QC): 6 Walk 50ft with 2 Turns (QC): 6 Walk 150 ft (QC): 6 Walking 10ft on Uneven Surface: 6 PT Plan Problem List Problem List: Activity Tolerance Treatment/Plan Treatment Plan: Continue Plan of Care Treatment Plan: Bed Mobility, Education, Functional Activity Devika, Functional Strength, Gait, Safety, Therapeutic Exercise, Transfers Treatment Duration: Jun 13, 2021 Frequency: 6 times per week Estimated Hrs Per Day: .25 hour per day Time/GCodes Time In: 1013 Time Out: 1030 Total Billed Treatment Time: 17 Total Billed Treatment 1 Visit EVModC 17 min KAIT PENA PT Jun 02, 2021 10:52
[2021-06-02 11:00] VITALS: BP 176/70
--- NOTE | 2021-06-02 11:13 | Occupational Therapy Eval ---
OT Evaluation-General/PLF Medical Diagnosis Admission Date Jun 01, 2021 at 19:13 Medical Diagnosis: CHF Onset Date: Jun 01, 2021 Therapy Diagnosis Therapy Diagnosis: n/a Height/Weight Height (Feet): 5 Height (Inches): 5.00 Weight (Pounds): 226 Weight (Ounces): 4.0 Precautions Precautions/Isolations: Fall Prevention, Standard Precautions Referral Physician: Destinee Referral Reason: Evaluation/Treatment Medical History Pertinent Medical History: Atrial Fib, DM, HTN, Neuropathy Additional Medical History R ankle fracture with repair October 2020, s/p L TKA 07/04/19, afib, DM, hypothyroidism, obesity, PHILLIP Current History ED due to SOB and increased LE swelling. Social History Home: Single Level Current Living Status: Alone Entry Into Home: Stairs With Railing Steps Into Home: 3 ADL-Prior Level of Function SCALE: Activities may be completed with or without assistive devices. 5-Sxaeoeiglj-xzvvhkp completes the activity by him/herself with no assistance from a helper. 5-Set-up or Clean-up Assistance-helper sets up or cleans up; patient completes activity. [employer] assists only prior to or following the activity. 4-Supervision or Touching Assistance-helper provides verbal cues and/or touching/steadying and/or contact guard assistance as patient completes act ivity. Assistance may be provided throughout the activity or intermittently. 3-Partial/Moderate Assistance-helper does LESS THAN HALF the effort. [employer] lifts, holds or supports trunk or limbs, but provides less than half the effort. 2-Substantial/Maximal Assistance-helper does MORE THAN HALF the effort. [employer] lifts or holds trunk or limbs and provides more than half the effort. 6-Treuuburp-fvuwdu does ALL the effort. Patient does none of the effort to complete the activity. Or, the assistance of 2 or more helpers is required for the patient to complete the activity. If activity was not attempted, code reason: 7-Patient Refused. 9-Not Applicable-not attempted and the patient did not perform the activity before the current illness, exacerbation or injury. 10-Not Attempted due to Environmental Limitations-(lack of equipment, weather restraints, etc.). 88-Not Attempted due to Medical Conditions or Safety Concerns. ADL PLOF Comments Pt reports IND with ADLs and functional mobility at [facility], she has a walker and cane, but has only been using the cane recently, typically does not use AD. She is able to bathe and dress herself, but has SBA in the shower for safety and to turn the water off after she is done. She is typically able to complete footwear independently, but sometimes requires assistance. She has compression socks that zip up that she recently received, and requires some assistance with them. Self Care: Needed Some Help Functional Cognition: Independent DME/Equipment: Bath Chair, Shower OT Current Status Subjective Pt up in recliner, agreeable to OT Tx. Mental Status/Objective Patient Orientation: Person, Place, Situation Attachments: Delgado Catheter, Oxygen Current Hand Dominance: Right Upper Extremity ROM WFL Upper Extremity Strength WFL ADL-Treatment Eating (QC): 6 Oral Hygiene (QC): 5 Lower Body Dressing (QC): 6 Toileting Hygiene (QC): 6 Other Treatments Pt up in recliner, provided information about PLOF and home set up. Pt lives with her spouse who is able to provide some assistance with ADLs as needed, although pt is typically independent. Pt able to don underwear independently, completed sit to stand from recliner independently and stood at the recliner for a minute prior to sitting back down. No LOB noted during LE dressing, and pt did not require walker for stabilization with task. Pt feels like she is at her PLOF with ADLs and feels like she mainly needs to work on strengthening. OT educated pt on UE exercises, including shoulder flexion, elbow flexion/extension and front punch, pt verbalized and demo'd understanding performing x5 reps each. Pt declined further OT services at this time, as she is at her baseline. OT educate d pt on how OT POC could include strengthening, but she declined further txs. OT informed pt to let nurse know if she has any concerns with ADLs and get new OT orders. She verbalized understanding. Post tx, pt up in recliner, call light in reach and all needs met. Education OT Patient Education: Correct positioning, Energy conservation, Exercise pr ogram, Modified ADL techniques, Progress toward Goal/Update tx plan, Purpose of tx/functional activities, Rehab process Teaching Recipient: Patient Teaching Methods: Discussion Response to Teaching: Verbalize Understanding OT [facility] Goals Vac Press Operator Goals 1=Demonstrate adherence to instructed precautions during ADL tasks. 2=Patient will verbalize/demonstrate understanding of assistive devices/modifications for ADL. 3=Patient will improve strength/tolerance for activity to enable patient to perform ADL's. OT Education/Plan Problem List/Assessment Assessment: No Skilled OT Needs ID'd No skilled OT services indicated at this time, as pt is at PLOF with ADL function, and pt does not wish to receive further OT txs. d/c from OT. Discharge Recommendations Plan/Recommendations: Discharge/Goals Met Treatment Plan/Plan of Care Patient would benefit from OT for education, treatment and training to promote independence in ADL's, mobility, safety and/or upper extremity function for ADL's. Plan of Care: ADL Retraining, Functional Mobility, UE Funct Exercise/Act Treatment Duration: Jun 02, 2021 Frequency: 1 time per week (eval only) Rehab Potential: Fair Time/GCodes Start Time: 10:44 Stop Time: 10:54 Total Time Billed (hr/min): 10 Billed Treatment Time 1, JAYA GARCIA OT Jun 02, 2021 11:13
[2021-06-02] MEDS: cefTRIAXone 1 GM PRE-MIX 50 ML IV SCH (11:21)
[2021-06-02] MEDS: DOCUSATE SODIUM 100 MG (COLACE) CAP PO SCH ×2 (11:23→21:30)
[2021-06-02] MEDS: SENNOSIDES 8.6 MG (SENOKOT) TAB PO SCH ×2 (11:24→21:30)
[2021-06-02] MEDS: APIXABAN 5 MG (ELIQUIS) TABLET PO SCH ×2 (11:38→21:28)
[2021-06-02] MEDS: FLECAINIDE 150 MG PO SCH ×2 (11:39→21:26)
[2021-06-02] MEDS: meTOproloL SUCCINATE 50 MG (TOPROL XL) TAB PO SCH (11:40)
[2021-06-02] MEDS: ENALAPRIL 10 MG (VASOTEC) TAB PO SCH (11:42)
--- NOTE | 2021-06-02 12:24 | History & Physical ---
LOAN NAQVI 06/02/21 1224: History of Present Illness History of Present Illness Reason for visit/HPI Carol is a 71 year old white female who presented yesterday evening to Dr. Hooks's clinic in respiratory distress with dyspnea and peripheral edema, likely due to congestive heart failure. After clinic visit she was admitted to the med-surg floor. Diuresis therapy was initiated with Furosemide 40mg. Davenport catheter was placed. Cardiology was consulted. Patient encounter this morning revealed she is feeling much better. She is still experiencing shortness of breath and peripheral swelling although she states her symptoms have improved since arriving to the hospital. She denies having chest pain. Vitals are stable, SpO2 is 95% with 2.0L O2 via nasal cannula. CBC and BMP are unremarkable. BNP: 265.3 UA revealed 10-25 WBC, culture results: Gram-negative rods Patient has had 1800ml urine output since arrival CXR: cardiac enlargement with central vascular congestion EKG: sinus rhythm Date of Admission Jun 01, 2021 at 19:13 Time Seen by a Provider: 10:30 I consulted on this patient on 06/02/21 12:19 Attending Physician Brittany Hooks DO Admitting Physician Brittany Hooks DO Consult Allergies and Home Medications Allergies Coded Allergies: insulin detemir (Verified Allergy, Intermediate, RASH, takes Lantus & Humalog at home, 08/23/18) red bumps at insertion site of injection Has received regular insulin & Novolog during previous hospitalization morphine (Verified Adverse Reaction, Intermediate, Vomiting, 07/05/19) Patient Home Medication List Home Medication List Reviewed: Yes Amlodipine Besylate (Amlodipine Besylate) 5 Mg Tablet, 5 MG PO DAILY, (Reported) Entered as Reported by: YISSEL DODSON on 06/02/21 0837 Last Action: Held Apixaban (Eliquis) 5 Mg Tablet, 5 MG PO Q12H, (Reported) Entered as Reported by: ALTAF MARAVILLA on 08/01/171626 Last Action: Held Cetirizine HCl (Cetirizine HCl) 10 Mg Tablet, 10 MG PO DAILY, (Reported) Entered as Reported by: ALTAF MARAVILLA on 08/01/171626 Last Action: Converted Doxazosin Mesylate (Doxazosin Mesylate) 4 Mg Tablet, 4 MG PO Q12H, (Reported) Entered as Reported by: LEVI CHOI on 04/21/21921 Last Action: Held Enalapril Maleate (Enalapril Maleate) 10 Mg Tablet, 20 MG PO DAILY, (Reported) Entered as Reported by: LEVI CHOI on 04/21/21921 Last Action: Held Flecainide Acetate (Flecainide Acetate) 150 Mg Tablet, 150 MG PO Q12H, (Reported) Entered as Reported by: LEVI CHOI on 04/21/21921 Last Action: Converted Furosemide (Furosemide) 40 Mg Tablet, 40 MG PO DAILY, (Reported) Entered as Reported by: LEVI CHOI on 04/21/21921 Last Action: Held Insulin Glargine,Hum.rec.anlog (Toujeo Solostar) 300 Unit/1 Ml Insuln.pen, 25 UNIT SQ HS, (Reported) Entered as Reported by: ALTAF MARAVILLA on 06/27/19 1014 Last Action: Converted Insulin Lispro (Humalog Kwikpen) 100 Unit/1 Ml Insuln.pen, 12-20 UNITS SC AC, (Reported) Entered as Reported by: YISSEL DODSON on 06/02/21836 Last Action: Held Levothyroxine Sodium (Levothyroxine Sodium) 100 Mcg Tablet, 100 MCG PO DAILY, (Reported) Entered as Reported by: ALTAF MARAVILLA on 08/01/171626 Last Action: Continued Lutein (Lutein) 6 Mg Capsule, 6 MG PO DAILY, (Reported) Entered as Reported by: ALTAF MARAVILLA on 08/01/171626 Last Action: Held Metoprolol Succinate (Metoprolol Succinate) 50 Mg Tab.er.24h, 50 MG PO DAILY, (Reported) Entered as Reported by: YISSEL DODSON on 06/02/21836 Last Action: Continued Montelukast Sodium (Montelukast Sodium) 10 Mg Tablet, 10 MG PO HS, (Reported) Entered as Reported by: ALTAF MARAVILLA on 08/01/171626 Last Action: Continued Multivitamin (Multivitamins) 1 Each Tablet, 1 TAB PO DAILY, (Reported) Entered as Reported by: ALTAF MARAVILLA on 08/01/171626 Last Action: Continued [place]-3/Dha/Epa/Fish Oil (Fish Oil 1,400 mg Softgel) 1 Each Capsule.dr, 1 EACH PO DAILY, (Reported) Entered as Reported by: YISSEL DODSON on 06/02/21836 Last Action: Held Omeprazole (Omeprazole) 20 Mg Capsule.dr, 20 MG PO DAILY, (Reported) Entered as Reported by: LEVI CHOI on 04/21/21921 Last Action: Continued Pravastatin Sodium (Pravastatin Sodium) 40 Mg Tablet, 40 MG PO HS, (Reported) Entered as Reported by: ALTAF MARAVILLA on 08/01/171626 Last Action: Converted Discontinued Medications Amlodipine Besylate (Amlodipine Besylate) 10 Mg Tablet, 10 MG PO DAILY, (Reported) Discontinued Reason: No Longer Taking Entered as Reported by: LEVI CHOI on 04/21/21921 Last Action: Discontinued Clonidine HCl (Clonidine HCl) 0.2 Mg Tablet, 0.2 MG PO BID, (Reported) Discontinued Reason: No Longer Taking Entered as Reported by: LEVI CHOI on 04/21/21921 Last Action: Discontinued Diclofenac Sodium (Voltaren Arthritis Pain) 20 Gm Gel..gram., 20 GM TP UD, (Reported) Discontinued Reason: No Longer Taking Entered as Reported by: LEVI CHOI on 04/21/21921 Last Action: Discontinued Flaxseed Oil (Flaxseed Oil) 1,000 Mg Capsule, 1,000 MG PO BID, (Reported) Discontinued Reason: No Longer Taking Entered as Reported by: LEVI CHOI on 04/21/21921 Last Action: Discontinued Insulin Lispro (Humalog) 100 Unit/1 Ml Cartridge, 12 UNITS SQ AC, (Reported) Discontinued Reason: Duplicate Order Entered as Reported by: ALTAF MARAVILLA on 08/01/171626 Last Action: Discontinued Metoprolol Succinate (Metoprolol Succinate) 50 Mg Tab.er.24h, 50 MG PO DAILY Discontinued Reason: Duplicate Order Prescribed by: BRITATNY HOOKS on 03/28/21 1105 Last Action: Discontinued Past [id number]-Qulmvt-[id number] Hx Patient Social History Tobacco Use?: No Smoking Status: Never a Smoker Use of E-Cig and/or Vaping dev: No Substance use?: No Alcohol Use?: No Pt feels they are or have been: No Immunizations Up To Date Date of Influenza Vaccine: Feb 19, 2021 First/Initial COVID19 Vaccinat: AUGUST 2020 AMADOU/AMADOU Tetanus Booster (TDap): More Than 5 Years Hepatitis A: Yes PED Vaccines UTD: No Date of Pneumonia Vaccine: Feb 21, 2017 Seasonal Allergies Seasonal Allergies: No Current Status status: No status: No Advance Directives: No Communicates: Verbally Primary Language: Estonian Preferred Spoken Language: Estonian Is interpretation needed?: No Sensory deficits: Vision impairment Implanted or Applied Medical D: None Past Medical History Surgeries: Bladder Surgery, Breast, Hysterectomy, Joint Replacement, Orthopedic Asthma, Chronic Bronchitis, Sleep Apnea Currently Using CPAP: Yes Currently Using BIPAP: No Atrial Fibrillation, Chronic Edema/Swelling, High Cholesterol, Hypertension, Rheumatic Fever Neuropathy [employer] History: Hysterectomy, Menopausal Sexually Transmitted Disease: No HIV/AIDS: No Gastroesophageal Reflux, Chronic Constipation Arthritis Diabetes, Insulin dep Loss of Vision: Bilateral Hearing Impairment: Denies Blood Disorders: No Adverse Reaction/Blood Tranf: No (N/A) Family Medical History Arthritis 19 FATHER 19 MOTHER Asthma 19 FATHER Cardiovascular disease 19 FATHER 19 MOTHER Cataracts 19 MOTHER Deafness or hearing loss 19 FATHER Dementia 19 MOTHER Diabetes mellitus G8 SISTER G8 SISTER Glaucoma 19 FATHER Hypertension 19 MOTHER Prostate cancer 19 FATHER Respiratory disorder 19 FATHER Thyroid disease G8 SISTER No Pertinent Family Hx Review of Systems Respiratory: dyspnea on exertion, short of breath Cardiovascular: No chest pain; edema Gastrointestinal: No abdominal pain Genitourinary: other (davenport in place) : No Physical Exam Vital Signs Vital Signs - First Documented 06/01/21 06/01/21 19:40 21:10 Temp 36.6 Pulse 57 Resp 22 B/P (MAP) 158/70 (99) Pulse Ox 97 O2 Delivery Nasal Cannula O2 Flow Rate 2.00 FiO2 28 Capillary Refill : Height, Weight, BMI Height: 5'5.00" Weight: 226lbs. 4.0oz. 102.647247jv; 47.75 BMI Method:Stated General Appearance: No Apparent Distress Respiratory: No Accessory Muscle Use, No Respiratory Distress, Decreased Breath Sounds (throughout) Cardiovascular: Regular Rate, Rhythm Gastrointestinal: Normal Bowel Sounds, Non Tender, Soft Genital/Rectal: Other (davenport catheter in place) Extremity: Pedal Edema (compression stockings in place) Neurologic/Psychiatric: Alert, Normal Mood/Affect Skin: Normal Color, Warm/Dry, Ecchymosis (left upper extremity ) Assessment/Plan Assessment and Plan Assessment: Congestive heart failure with respiratory distress HTN Atrial fibrillation/atrial flutter Type 2 diabetes mellitus Hypothyroidism BMI 47.4 PHILLIP Cystitis - UA culture positive for Gram-negative rods Plan: Furosemide 40mg - continue diuresis Ceftriaxone for UTI management Eliquis 5mg Sliding scale insulin PT/OT Low Na diet as tolerated Compression stockings Davenport catheter Resume home medications Admission Diagnosis Congestive heart failure with respiratory distress Admission Status: Observation BRITTANY HOOKS DO 06/03/21 0612: History of Present Illness History of Present Illness Reason for visit/HPI CC: SOB HPI: 71 yr old [facility] clinic pt of mine with a Hx of PHILLIP on CPAP and 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 Who presented to my clinic with SOB, she was assessed to be in need of IV Lasix. So 40 mg of IV Lasix BID with davenport catheter administered has been maintained and she has had a good 1800 cc output since that time. BNP is elevated at 265. Chest x-ray shows pulmonary congestion. Overall cardiology will continue to watch her. We will optimize her treatment and discontinue the Norvasc. Allergies and Home Medications Allergies Coded Allergies: insulin detemir (Verified Allergy, Intermediate, RASH, takes Lantus & Mariah log at home, 08/23/18) red bumps at insertion site of injection Has received regular insulin & Novolog during previous hospitalization morphine (Verified Adverse Reaction, Intermediate, Vomiting, 07/05/19) Patient Home Medication List Home Medication List Reviewed: Yes Amlodipine Besylate (Amlodipine Besylate) 5 Mg Tablet, 5 MG PO DAILY, (Reported) Entered as Reported by: YISSEL DODSON on 06/02/21 0837 Last Action: Held Apixaban (Eliquis) 5 Mg Tablet, 5 MG PO Q12H, (Reported) Entered as Reported by: ALTAF MARAVILLA on 08/01/171626 Last Action: Held Cetirizine HCl (Cetirizine HCl) 10 Mg Tablet, 10 MG PO DAILY, (Reported) Entered as Reported by: ALTAF MARAVILLA on 08/01/171626 Last Action: Converted Doxazosin Mesylate (Doxazosin Mesylate) 4 Mg Tablet, 4 MG PO Q12H, (Reported) Entered as Reported by: LEVI CHOI on 04/21/21921 Last Action: Held Enalapril Maleate (Enalapril Maleate) 10 Mg Tablet, 20 MG PO DAILY, (Reported) Entered as Reported by: LEVI CHOI on 04/21/21921 Last Action: Held Flecainide Acetate (Flecainide Acetate) 150 Mg Tablet, 150 MG PO Q12H, (Reported) Entered as Reported by: LEVI CHOI on 04/21/21921 Last Action: Converted Furosemide (Furosemide) 40 Mg Tablet, 40 MG PO DAILY, (Reported) Entered as Reported by: LEVI CHOI on 04/21/21921 Last Action: Held Insulin Glargine,Hum.rec.anlog (Toujeo Solostar) 300 Unit/1 Ml Insuln.pen, 25 UNIT SQ HS, (Reported) Entered as Reported by: ALTAF MARAVILLA on 06/27/19 1014 Last Action: Converted Insulin Lispro (Humalog Kwikpen) 100 Unit/1 Ml Insuln.pen, 12-20 UNITS SC AC, (Reported) Entered as Reported by: YISSEL DODSON on 06/02/21836 Last Action: Held Levothyroxine Sodium (Levothyroxine Sodium) 100 Mcg Tablet, 100 MCG PO DAILY, (Reported) Entered as Reported by: ALTAF MARAVILLA on 08/01/171626 Last Action: Continued Lutein (Lutein) 6 Mg Capsule, 6 MG PO DAILY, (Reported) Entered as Reported by: ALTAF MARAVILLA on 08/01/171626 Last Action: Held Metoprolol Succinate (Metoprolol Succinate) 50 Mg Tab.er.24h, 50 MG PO DAILY, (Reported) Entered as Reported by: YISSEL DODSON on 06/02/21836 Last Action: Continued Montelukast Sodium (Montelukast Sodium) 10 Mg Tablet, 10 MG PO HS, (Reported) Entered as Reported by: ALTAF MARAVILLA on 08/01/171626 Last Action: Continued Multivitamin (Multivitamins) 1 Each Tablet, 1 TAB PO DAILY, (Reported) Entered as Reported by: ALTAF MARAVILLA on 08/01/171626 Last Action: Continued [place]-3/Dha/Epa/Fish Oil (Fish Oil 1,400 mg Softgel) 1 Each Capsule.dr, 1 EACH PO DAILY, (Reported) Entered as Reported by: YISSEL DODSON on 06/02/21 08 Last Action: Held Omeprazole (Omeprazole) 20 Mg Capsule.dr, 20 MG PO DAILY, (Reported) Entered as Reported by: LEVI CHOI on 04/21/21921 Last Action: Continued Pravastatin Sodium (Pravastatin Sodium) 40 Mg Tablet, 40 MG PO HS, (Reported) Entered as Reported by: ALTAF MARAVILLA on 08/01/171626 Last Action: Converted Discontinued Medications Amlodipine Besylate (Amlodipine Besylate) 10 Mg Tablet, 10 MG PO DAILY, (Reported) Discontinued Reason: No Longer Taking Entered as Reported by: LEVI CHOI on 04/21/21921 Last Action: Discontinued Clonidine HCl (Clonidine HCl) 0.2 Mg Tablet, 0.2 MG PO BID, (Reported) Discontinued Reason: No Longer Taking Entered as Reported by: LEVI CHOI on 04/21/21921 Last Action: Discontinued Diclofenac Sodium (Voltaren Arthritis Pain) 20 Gm Gel..gram., 20 GM TP UD, (Reported) Discontinued Reason: No Longer Taking Entered as Reported by: LEVI CHOI on 04/21/21921 Last Action: Discontinued Flaxseed Oil (Flaxseed Oil) 1,000 Mg Capsule, 1,000 MG PO BID, (Reported) Discontinued Reason: No Longer Taking Entered as Reported by: LEVI CHOI on 04/21/21921 Last Action: Discontinued Insulin Lispro (Humalog) 100 Unit/1 Ml Cartridge, 12 UNITS SQ AC, (Reported) Discontinued Reason: Duplicate Order Entered as Reported by: ALTAF MARAVILLA on 08/01/171626 Last Action: Discontinued Metoprolol Succinate (Metoprolol Succinate) 50 Mg Tab.er.24h, 50 MG PO DAILY Discontinued Reason: Duplicate Order Prescribed by: BRITTANY HOOKS on 03/28/21 1105 Last Action: Discontinued Past Wvuumfv-Tiwngk-Ajcxyl Hx Patient Social History Marrital Status: Employed/Student: retired Smoking Status: Never a Smoker Past Medical History Sleep Apnea, COPD Currently Using CPAP: Yes Currently Using BIPAP: No Chronic Edema/Swelling, Coronary Artery Disease, High Cholesterol, Hypertension Neuropathy Bladder Infection Gastroesophageal Reflux Arthritis, Chronic Back Pain Diabetes, Insulin dep Family Medical History Arthritis 19 FATHER 19 MOTHER Asthma 19 FATHER Cardiovascular disease 19 FATHER 19 MOTHER Cataracts 19 MOTHER Deafness or hearing loss 19 FATHER Dementia 19 MOTHER Diabetes mellitus G8 SISTER G8 SISTER Glaucoma 19 FATHER Hypertension 19 MOTHER Prostate cancer 19 FATHER Respiratory disorder 19 FATHER Thyroid disease G8 SISTER Review of Systems Constitutional: see HPI, weakness EENTM: no symptoms reported Respiratory: dyspnea on exertion, short of breath Cardiovascular: edema Gastrointestinal: no symptoms reported Genitourinary: no symptoms reported Musculoskeletal: no symptoms reported Skin: no symptoms reported Psychiatric/Neurological: No Symptoms Reported All Other Systems Reviewed Negative Unless Noted: Yes Physical Exam General Appearance: WD/WN, Anxious, Chronically ill Eyes: Bilateral Eye Normal Inspection, Bilateral Eye PERRL, Bilateral Eye EOMI HEENT: PERRL/EOMI, Normal ENT Inspection, Pharynx Normal Neck: Full Range of Motion, Normal Inspection, Non Tender, Supple, Carotid Bruit Respiratory: Chest Non Tender, Lungs Clear, No Respiratory Distress, Accessory Muscle Use, Decreased Breath Sounds (throughout) Cardiovascular: Regular Rate, Rhythm, No Gallop, No JVD, No Murmur, Normal Peripheral Pulses Gastrointestinal: Normal Bowel Sounds, No Organomegaly, No Pulsatile Mass, Non Tender, Soft Back: Normal Inspection, No CVA Tenderness, No Vertebral Tenderness Extremity: Normal Capillary Refill, Normal Inspection, Normal Range of Motion, Non Tender, No Calf Tenderness, Pedal Edema (compression stockings in place) Neurologic/Psychiatric: Alert, Oriented x3, No Motor/Sensory Deficits, Normal Mood/Affect Skin: Normal Color, Warm/Dry Lymphatic: No Adenopathy Assessment/Plan Assessment and Plan Assesment: Respiratory distress Volume overload UTI HTN AF OAC HLP PHILLIP Plan: Diuresis Abx Problems: (1) Anasarca Admission Diagnosis Admission Status: Observation Supervisory-Addendum Brief Verification & Attestation Participated in pt care: history, MDM, physical Personally performed: exam, history, MDM, supervision of care Care discussed with: Medical Student Procedures: n/a Results interpretation: Verified all documentation Verification and Attestation of Medical Student E/M Service A medical student performed and documented this service in my presence. I reviewed and verified all information documented by the medical student and made modifications to such information, when appropriate. I personally performed the physical exam and medical decision making. Brittany Hooks, Jun 03, 2021,06:12 LOAN NAQVI Jun 02, 2021 12:24 BRITTANY HOOKS DO Jun 03, 2021 06:12
[2021-06-02 15:00] VITALS: BP 151/73
[2021-06-02] MEDS ORDERED: TRIAMTERENE/HCTZ 75-50 (MAXZIDE,DYAZIDE) TABLET PO NR (16:00)
--- NOTE | 2021-06-02 16:24 | Consultation-Cardiology ---
HPI-Cardiology Cardiology Consultation: Date of Consultation 06/02/21 Time Seen by a Provider: 15:30 Date of Admission Attending Physician Brittany Hooks DO Admitting Physician Brittany Hooks DO Consulting Physician CHARLES LINN MD, MA, FACP, FACC, FSCAI, CCDS HPI: Chief Complaint: Progressive PENA Ms. Durham is a 71 yr old female admitted to [facility] with c/o increasing SOB and LE swelling over the course of the last several days. She denies any c/o CP or palpitations. She reports she has not missed any doses of her medications. She reports she feels her breathing is better this morning, but not yet back to her baseline. She is dyspneic with conversation. No c/o n/v/d. No c/o fever or chills. No c/o cough. Review of Systems-Cardiology Review of Systems Constitutional: No chills, No fever; malaise Eyes: No vision change Ears/Nose/Throat: No epistaxis, No recent hearing loss Respiratory: As described under HPI Cardiovascular: As described under HPI Gastrointestinal: No constipation, No diarrhea, No nausea, No vomiting Genitourinary: No dysuria : No Musculoskeletal: no symptoms reported Skin: No rash on exposed areas, No ulcerations on exposed areas Psychiatric/Neurological: No anxiety, No depression, No seizure, No focal weakness, No syncope Hematologic: No bleeding abnormalities FPI-Ojezdt-Wayajx Hx Patient Social History Smoking Status: Never a Smoker 2nd Hand Smoke Exposure: No Have you traveled recently?: No Alcohol Use?: No Pt feels they are or have been: No Immunizations Up To Date Tetanus Booster (TDap): Less than 5yrs Date of Pneumonia Vaccine: Feb 21, 2017 Date of Influenza Vaccine: Feb 19, 2021 Past Medical History PMH As described under Assessment. Family Medical History Family Medical History: Reported h/o father and mother having CAD. Sisters x 2 with DM. Family History: Arthritis 19 FATHER 19 MOTHER Asthma 19 FATHER Cardiovascular disease 19 FATHER 19 MOTHER Cataracts 19 MOTHER Deafness or hearing loss 19 FATHER Dementia 19 MOTHER Diabetes mellitus G8 SISTER G8 SISTER Glaucoma 19 FATHER Hypertension 19 MOTHER Prostate cancer 19 FATHER Respiratory disorder 19 FATHER Thyroid disease G8 SISTER Allergies and Home Medications Allergies Coded Allergies: insulin detemir (Verified Allergy, Intermediate, RASH, takes Lantus & Humalog at home, 08/23/18) red bumps at insertion site of injection Has received regular insulin & Novolog during previous hospitalization morphine (Verified Adverse Reaction, Intermediate, Vomiting, 07/05/19) Patient Home Medication List Home Medication List Reviewed: Yes Amlodipine Besylate (Amlodipine Besylate) 5 Mg Tablet, 5 MG PO DAILY, (Reported) Entered as Reported by: YISSEL DODSON on 06/02/21836 Last Action: Reviewed Apixaban (Eliquis) 5 Mg Tablet, 5 MG PO Q12H, (Reported) Entered as Reported by: ALTAF MARAVILLA on 08/01/171626 Last Action: Reviewed Cetirizine HCl (Cetirizine HCl) 10 Mg Tablet, 10 MG PO DAILY, (Reported) Entered as Reported by: ALTAF MARAVILLA on 08/01/171626 Last Action: Reviewed Doxazosin Mesylate (Doxazosin Mesylate) 4 Mg Tablet, 4 MG PO Q12H, (Reported) Entered as Reported by: LEVI CHOI on 04/21/21921 Last Action: Reviewed Enalapril Maleate (Enalapril Maleate) 10 Mg Tablet, 20 MG PO DAILY, (Reported) Entered as Reported by: LEVI CHOI on 04/21/21921 Last Action: Reviewed Flecainide Acetate (Flecainide Acetate) 150 Mg Tablet, 150 MG PO Q12H, (Rep orted) Entered as Reported by: LEVI CHOI on 04/21/21921 Last Action: Reviewed Furosemide (Furosemide) 40 Mg Tablet, 40 MG PO DAILY, (Reported) Entered as Reported by: LEVI CHOI on 04/21/21921 Last Action: Reviewed Insulin Glargine,Hum.rec.anlog (Toujeo Solostar) 300 Unit/1 Ml Insuln.pen, 25 UNIT SQ HS, (Reported) Entered as Reported by: ALTAF MARAVILLA on 06/27/19 1014 Last Action: Reviewed Insulin Lispro (Humalog Kwikpen) 100 Unit/1 Ml Insuln.pen, 12-20 UNITS SC AC, (Reported) Entered as Reported by: YISSEL DODSON on 06/02/21836 Last Action: Reviewed Levothyroxine Sodium (Levothyroxine Sodium) 100 Mcg Tablet, 100 MCG PO DAILY, (Reported) Entered as Reported by: ALTAF MARAVILLA on 08/01/171626 Last Action: Reviewed Lutein (Lutein) 6 Mg Capsule, 6 MG PO DAILY, (Reported) Entered as Reported by: ALTAF MARAVILLA on 08/01/171626 Last Action: Reviewed Metoprolol Succinate (Metoprolol Succinate) 50 Mg Tab.er.24h, 50 MG PO DAILY, (Reported) Entered as Reported by: YISSEL DODSON on 06/02/21836 Last Action: Reviewed Montelukast Sodium (Montelukast Sodium) 10 Mg Tablet, 10 MG PO HS, (Reported) Entered as Reported by: ALTAF MARAVILLA on 08/01/171626 Last Action: Reviewed Multivitamin (Multivitamins) 1 Each Tablet, 1 TAB PO DAILY, (Reported) Entered as Reported by: ALTAF MARAVILLA on 08/01/171626 Last Action: Reviewed [place]-3/Dha/Epa/Fish Oil (Fish Oil 1,400 mg Softgel) 1 Each Capsule.dr, 1 EACH PO DAILY, (Reported) Entered as Reported by: YISSEL DODSON on 06/02/21836 Last Action: Reviewed Omeprazole (Omeprazole) 20 Mg Capsule.dr, 20 MG PO DAILY, (Reported) Entered as Reported by: LEVI CHOI on 04/21/21921 Last Action: Reviewed Pravastatin Sodium (Pravastatin Sodium) 40 Mg Tablet, 40 MG PO HS, (Reported) Entered as Reported by: ALTAF MARAVILLA on 08/01/171626 Last Action: Reviewed Discontinued Medications Amlodipine Besylate (Amlodipine Besylate) 10 Mg Tablet, 10 MG PO DAILY, (Reported) Discontinued Reason: No Longer Taking Entered as Reported by: LEVI CHOI on 04/21/21921 Last Action: Discontinued Clonidine HCl (Clonidine HCl) 0.2 Mg Tablet, 0.2 MG PO BID, (Reported) Discontinued Reason: No Longer Taking Entered as Reported by: LEVI CHOI on 04/21/21921 Last Action: Discontinued Diclofenac Sodium (Voltaren Arthritis Pain) 20 Gm Gel..gram., 20 GM TP UD, (Reported) Discontinued Reason: No Longer Taking Entered as Reported by: LEVI CHOI on 04/21/21921 Last Action: Discontinued Flaxseed Oil (Flaxseed Oil) 1,000 Mg Capsule, 1,000 MG PO BID, (Reported) Discontinued Reason: No Longer Taking Entered as Reported by: LEVI CHOI on 04/21/21921 Last Action: Discontinued Insulin Lispro (Humalog) 100 Unit/1 Ml Cartridge, 12 UNITS SQ AC, (Reported) Discontinued Reason: Duplicate Order Entered as Reported by: ALTAF MARAVILLA on 08/01/17 1627 Last Action: Discontinued Metoprolol Succinate (Metoprolol Succinate) 50 Mg Tab.er.24h, 50 MG PO DAILY Discontinued Reason: Duplicate Order Prescribed by: BRITTANY HOOKS on 03/28/21 110 Last Action: Discontinued Physical Exam-Cardiology Physical Exam Vital Signs/I&O 06/02/21 06/02/21 06/02/21 06/02/21 05:00 07:00 07:29 08:00 Temp 36.5 36.6 Pulse 75 60 54 Resp 22 18 B/P (MAP) 152/70 (97) 171/67 (101) Pulse Ox 94 95 O2 Delivery Nasal Cannula Nasal Cannula Nasal Cannula O2 Flow Rate 2.00 2.50 2.00 06/02/21 06/02/21 06/02/21 11:00 12:34 13:40 Temp 36.1 Pulse 65 63 Resp 18 B/P (MAP) 176/70 (105) Pulse Ox 96 96 O2 Delivery Nasal Cannula Nasal Cannula O2 Flow Rate 2.50 2.00 06/01/21 23:59 Intake Total 100 ml Output Total 150 ml Balance -50 ml Capillary Refill : Constitutional: AAO x 3, well-developed, well-nourished HEENT: PERRL, hearing is well preserved, oral hygience is good Neck: No carotid bruit; carotid pulses are 2 + bilaterally Respiratory: No accessory muscle use, No respiratory distress; chest expansion is symmetric, chest is bilaterally symmetric, other (diminished bases bilat; dyspneic with conversation) Cardiovascular: regular rate-rhythm; No JVD; S1 and S2 Gastrointestinal: No tender; soft, round, audible bowel sounds Extremities: other (mod bilat LE swelling; compression stockings in place) Neurologic/Psychiatric: grossly intact (moves all extremities) Skin: No rash on exposed areas, No ulcerations on exposed areas Data Review Labs Laboratory Tests 06/01/21 19:45: White Blood Count 7.0, Red Blood Count 2.89L, Hemoglobin 8.3L, Hematocrit 28L, Mean Corpuscular Volume 98, Mean Corpuscular Hemoglobin 29, Mean Corpuscular Hemoglobin Concent 29L, Red Cell Distribution Width 16.4H, Platelet Count 222, Mean Platelet Volume 11.6, Immature Granulocyte % (Auto) 0, Neutrophils (%) (Auto) 79H, Lymphocytes (%) (Auto) 8L, Monocytes (%) (Auto) 8, Eosinophils (%) (Auto) 5, Basophils (%) (Auto) 0, Neutrophils # (Auto) 5.5, Lymphocytes # (Auto) 0.6L, Monocytes # (Auto) 0.6, Eosinophils # (Auto) 0.3, Basophils # (Auto) 0.0, Immature Granulocyte # (Auto) 0.0, Neutrophils % (Manual) 82, Lymphocytes % (Manual) 7, Monocytes % (Manual) 8, Eosinophils % (Manual) 3, Polychromasia MODERATE, Blood Morphology Comment NA, Sodium Level 145, Potassium Level 4.6, Chloride Level 108H, Carbon Dioxide Level 26, Anion Gap 11, Blood Urea Nitrogen 23H, Creatinine 1.20, Estimat Glomerular Filtration Rate 48, BUN/Creatinine Ratio 19, Glucose Level 77, Lactic Acid Level 1.77, Calcium Level 8.9, Corrected Calcium 9.1, Total Bilirubin 1.1H, Aspartate Amino Transf (AST/SGOT) 20, Alanine Aminotransferase (ALT/SGPT) 16, Alkaline Phosphatase 86, Troponin I < 0.028, B- Type Natriuretic Peptide 265.3H, Total Protein 6.6, Albumin 3.7, Procalcitonin 0.03 06/01/21 20:15: Urine Color YELLOW, Urine Clarity CLEAR, Urine pH 5.5, Urine Specific Pine 1.025H, Urine Protein 1+H, Urine Glucose (UA) NEGATIVE, Urine Ketones TRACEH, Urine Nitrite NEGATIVE, Urine Bilirubin NEGATIVE, Urine Urobilinogen 0.2, Urine Leukocyte Esterase NEGATIVE, Urine RBC (Auto) NEGATIVE, Urine RBC RARE, Urine WBC 10-25H, Urine Squamous Epithelial Cells 0-2, Urine Renal Epithelial Cells NONE, Urine Crystals NONE, Urine Bacteria LARGEH, Urine Casts NONE, Urine Mucus NEGATIVE, Urine Culture Indicated YES 06/02/21 05:20: White Blood Count 7.4, Red Blood Count 2.83L, Hemoglobin 8.1L, Hematocrit 27L, Mean Corpuscular Volume 97, Mean Corpuscular Hemoglobin 29, Mean Corpuscular H emoglobin Concent 30L, Red Cell Distribution Width 16.2H, Platelet Count 215, Mean Platelet Volume 11.8, Immature Granulocyte % (Auto) 0, Neutrophils (%) (Auto) 73, Lymphocytes (%) (Auto) 12, Monocytes (%) (Auto) 9, Eosinophils (%) (Auto) 6, Basophils (%) (Auto) 1, Neutrophils # (Auto) 5.4, Lymphocytes # (Auto) 0.9L, Monocytes # (Auto) 0.6, Eosinophils # (Auto) 0.4H, Basophils # (Auto) 0.0, Immature Granulocyte # (Auto) 0.0, Sodium Level 144, Potassium Level 4.1, Chloride Level 107, Carbon Dioxide Level 27, Anion Gap 10, Blood Urea Nitrogen 22H, Creatinine 0.94, Estimat Glomerular Filtration Rate 64, BUN/Creatinine Ratio 23, Glucose Level 95, Calcium Level 8.9, Corrected Calcium 9.2, Total Bilirubin 1.2H, Aspartate Amino Transf (AST/SGOT) 18, Alanine Aminotransferase (ALT/SGPT) 15, Alkaline Phosphatase 79, Total Protein 6.8, Albumin 3.6 06/02/21 11:29: Glucometer 247H Microbiology 06/01/21 Urine Culture - Preliminary, Resulted Gram Negative Mauricio A/P-Cardiology Assessment/Admission Diagnosis Progressive dyspnea - acute on chronic diastolic CHF HTN Ortho - S/P total left knee arthroplasty on 07-04-[address] Pagan. - H/O right ankle fx with repair in October 2020 Paroxysmal atrial flutter/fibrillation - currently controlled on therapy with flecainide, initiated by Dr Eid in EP consult in [place], [place] - Chronic Eliquis anticoag - Echo of 04/01/20: LVEF 60-65%. Grade 2 diastolic dysfunction. LA mod to sev dilated. Mild MR. PASP 50-55 mmHg mmHg - Beta-christofer reduced in Mar 2021 due to symptomatic sinus kellie on the higher dose of bb Cornary w/u - No angiographically significant coronary artery disease. Normal global left ventricular systolic function, no significant mitral regurgitation, and normal left ventricular end-diastolic pressure on cardiac catheterization in October 2011. - MPI of Jun 06, 2018 showed no evidence of any significant myocardial ischemia or infarction. LVEF 74% Maturity onset diabetes mellitus - being followed by her Dryerman/Woman, Dr. Farias. Hypothyroidism - being treated with thyroid replacement therapy. H/o hyperkalemia - Potassium level at the top limits of normal to minimally elevated. - Cessation of ISATU inhibitors does not seem to have changed this very much. Her form setter metal road forms has advised continuing ISATU-inhib therapy Hyperlipidemia - being treated with statins and being followed by her Dryerman/Woman, Dr. Med Deleon Carotid dz - Mild bilat internal carotid dz per u/s of 02-04-21 Obesity - Elevated BMI of approx 43 PHILLIP - diagnosed on sleep study of 07/17/16, previously being followed by Pulmonology Discussion and Recomendations Acute on chronic diastolic CHF - treat with diuretics Uncontrolled HTN - restart home medications - stop Norvasc d/t worsening LE when on this agent We spoke with Dr. Hooks of <edical services this morning, planning on restarting Dyazide (previously had been on) Intolerant to any higher dose of BB d/t episodes of bradycardia Adjust antihypertensive regimen as indicated Continue all other home medications including OAC for stroke prophylaxis Monitor lab closely Replace electrolytes as indicated Further recs will be based on her hospital course We would like to thank Dr. Hooks for this consult CHARLES LINN MD FACP FAC CCDS Jun 02, 2021 16:24
[2021-06-02 19:00] VITALS: BP 165/67
[2021-06-02] MEDS ORDERED: FLECAINIDE ACETATE 150 MG PO SCH (20:15)
[2021-06-02] MEDS ORDERED: NON-FORMULARY MEDICATION 1 EA EA (Pravastatin Sodium 40 MG) PO SCH (21:00)
[2021-06-02] MEDS ORDERED: MONTELUKAST 10 MG (SINGULAIR) TAB PO SCH (21:00)
[2021-06-02] MEDS ORDERED: INSULIN GLARGINE HUM REC ANLOG 25 UNIT SQ SCH (21:00)
[2021-06-02] MEDS ORDERED: [UNRECOGNIZED DRUG - OTHER] SQ SCH (21:00)
[2021-06-02] MEDS: doxAzosin 4 MG (CARDURA) TAB PO SCH (21:25)
[2021-06-03 00:06] VITALS: BP 146/65
[2021-06-03 04:32] VITALS: BP 160/75
[2021-06-03] MEDS: inSUlin ASPART (NovoLOG) 1 UNIT/0.01 ML (CHARGE PER UNIT) SC SCH ×2 (06:15→12:13)
[2021-06-03] MEDS: FUROSEMIDE 40 MG/4 ML INJ (LASIX) IVP SCH (06:16)
[2021-06-03] MEDS ORDERED: LEVOTHYROXINE 100 MCG (LEVOTHROID) TAB PO SCH ×2 (06:30→08:52)
[2021-06-03] MEDS ORDERED: PANTOPRAZOLE 20 MG TABLET (PROTONIX) PO SCH (07:00)
[2021-06-03 07:09] LABS: BASOPHILS # (AUTO) 0.1 10^3/uL (0.0-0.1); BASOPHILS % (AUTO) 1 % (0-10); EOSINOPHILS # (AUTO) 0.5 10^3/uL (0.0-0.3); EOSINOPHILS % (AUTO) 7 % (0-10); HEMATOCRIT 28 % (35-52); HEMOGLOBIN 8.3 g/dL (11.5-16.0); LYMPHOCYTES # (AUTO) 0.7 10^3/uL (1.0-4.0); LYMPHOCYTES % (AUTO) 10 % (12-44); MEAN CORPUSCULAR HEMOGLOBIN 29 pg (25-34); MEAN CORPUSCULAR HGB CONC 30 g/dL (32-36); MEAN CORPUSCULAR VOLUME 96 fL (80-99); MEAN PLATELET VOLUME 11.1 fL (9.0-12.2); MONOCYTES # (AUTO) 0.7 10^3/uL (0.0-1.0); MONOCYTES % (AUTO) 10 % (0-12); NEUTROPHILS # (AUTO) 5.3 10^3/uL (1.8-7.8); NEUTROPHILS % (AUTO) 72 % (42-75); PLATELET COUNT 207 10^3/uL (130-400); WHITE BLOOD COUNT 7.3 10^3/uL (4.3-11.0)
[2021-06-03 07:31] LABS: ALBUMIN 3.7 GM/DL (3.2-4.5); BILIRUBIN,TOTAL 1.4 MG/DL (0.1-1.0); CALCIUM 9.1 MG/DL (8.5-10.1); CREATININE SERUM 0.9 MG/DL (0.60-1.30); POTASSIUM 4.4 MMOL/L (3.6-5.0)
[2021-06-03 08:00] VITALS: BP 174/74
[2021-06-03] MEDS ORDERED: MULTIVIT W/MINERALS TAB (THERAGRAN M) PO SCH (09:00)
[2021-06-03] MEDS ORDERED: LORATADINE (CLARITIN) 10 MG TAB PO SCH (09:00)
[2021-06-03] MEDS ORDERED: meTOproloL SUCCINATE 50 MG (TOPROL XL) TAB PO SCH (09:00)
[2021-06-03] MEDS ORDERED: TRIAMTERENE/HCTZ 75-50 (MAXZIDE,DYAZIDE) TABLET PO SCH (09:00)
--- NOTE | 2021-06-03 09:36 | Progress Note - Cardiology ---
Cardiology SOAP Progress Note Subjective: Sitting up in recliner at the bedside States she feels her breathing is much better today No c/o CP, palpitations Feels LE swelling is better today Objective: I&O/Vital Signs 06/03/21 06/03/21 06/03/21 06/03/21 00:06 01:00 04:32 07:00 Temp 37.0 37.0 Pulse 51 47 53 52 Resp 20 20 B/P (MAP) 146/65 (92) 160/75 (103) Pulse Ox 94 93 O2 Delivery Nasal Cannula Nasal Cannula O2 Flow Rate 1.50 1.50 06/03/21 08:00 Temp 36.4 Pulse 56 Resp 20 B/P (MAP) 174/74 (107) Pulse Ox 97 O2 Delivery Nasal Cannula O2 Flow Rate 1.50 06/03/21 00:00 Intake Total 1456 ml Output Total 4025 ml Balance -2569 ml Weight (Pounds): 226 Weight (Ounces): 4.0 Weight (Calculated Kilograms): 102.289053 Constitutional: AAO x 3, well-developed, well-nourished Respiratory: No accessory muscle use, No respiratory distress; chest expansion is symmetric, chest is bilaterally symmetric, other (diminished bases bilat; dyspneic with conversation) Cardiovascular: regular rate-rhythm; No JVD; S1 and S2 Gastrointestional: No tender; soft, round, audible bowel sounds Extremities: other (mod bilat LE swelling; compression stockings in place) Neurologic/Psychiatric: grossly intact (moves all extremities) Skin: No rash on exposed areas, No ulcerations on exposed areas Results/Procedures: Labs Laboratory Tests 06/02/21 11:29: Glucometer 247H 06/02/21 16:43: Glucometer 281H 06/02/21 20:41: Glucometer 205H 06/03/21 05:31: Glucometer 121H 06/03/21 06:47: White Blood Count 7.3, Red Blood Count 2.90L, Hemoglobin 8.3L, Hematocrit 28L, Mean Corpuscular Volume 96, Mean Corpuscular Hemoglobin 29, Mean Corpuscular Hemoglobin Concent 30L, Red Cell Distribution Width 16.0H, Platelet Count 207, Mean Platelet Volume 11.1, Immature Granulocyte % (Auto) 0, Neutrophils (%) (Auto) 72, Lymphocytes (%) (Auto) 10L, Monocytes (%) (Auto) 10, Eosinophils (%) (Auto) 7, Basophils (%) (Auto) 1, Neutrophils # (Auto) 5.3, Lymphocytes # (Auto) 0.7L, Monocytes # (Auto) 0.7, Eosinophils # (Auto) 0.5H, Basophils # (Auto) 0.1, Immature Granulocyte # (Auto) 0.0 06/03/21 07:00: Sodium Level 142, Potassium Level 4.4, Chloride Level 102, Carbon Dioxide Level 29, Anion Gap 11, Blood Urea Nitrogen 20H, Creatinine 0.90, Estimat Glomerular Filtration Rate 68, BUN/Creatinine Ratio 22, Glucose Level 143H, Calcium Level 9.1, Corrected Calcium 9.3, Total Bilirubin 1.4H, Aspartate Amino Transf (AST/SGOT) 17, Alanine Aminotransferase (ALT/SGPT) 14, Alkaline Phosphatase 85, Total Protein 7.0, Albumin 3.7 Microbiology 06/01/21 Urine Culture - Final, Complete Escherichia coli A/P: Assessment: Progressive dyspnea - acute on chronic diastolic CHF - clinically improved HTN - difficult to control despite multi-drug regimen Ortho - S/P total left knee arthroplasty on 07-04-[address] Pagan. - H/O right ankle fx with repair in October 2020 Paroxysmal atrial flutter/fibrillation - currently controlled on therapy with flecainide, initiated by Dr Eid in EP consult in [place], [place] - Chronic Eliquis anticoag - Echo of 04/01/20: LVEF 60-65%. Grade 2 diastolic dysfunction. LA mod to sev dilated. Mild MR. PASP 50-55 mmHg mmHg - Beta-christofer reduced in Mar 2021 due to symptomatic sinus kellie on the higher dose of bb Cornary w/u - No angiographically significant coronary artery disease. Normal global left ventricular systolic function, no significant mitral regurgitation, and normal left ventricular end-diastolic pressure on cardiac catheterization in October 2011. - MPI of Jun 06, 2018 showed no evidence of any significant myocardial ischemia or infarction. LVEF 74% Maturity onset diabetes mellitus - being followed by her Dandy Operator, Dr. Farias. Hypothyroidism - being treated with thyroid replacement therapy. H/o hyperkalemia - Potassium level at the top limits of normal to minimally elevated. - Cessation of ISATU inhibitors does not seem to have changed this very much. Her adult education manager has advised continuing ISATU-inhib therapy Hyperlipidemia - being treated with statins and being followed by her Dandy Operator, Dr. Med Deleon Carotid dz - Mild bilat internal carotid dz per u/s of 02-04-21 Obesity - Elevated BMI of approx 43 PHILLIP - diagnosed on sleep study of 07/17/16, previously being followed by Pulmonology Plan: Acute on chronic diastolic CHF - clinically improved Uncontrolled HTN - Dyazide started, Doxazosin increased - adjust as indicated and tolerated Intolerant to any higher dose of BB d/t episodes of bradycardia Adjust antihypertensive regimen as indicated Physician Assessment Physician Assessment Pt evaluated collaboratively by the Cardiology team. To limit exposure to COVID 19, only one member of the team examined the patient today (Patricia Szymanski APRN). Our Assessment and Plan are listed above ANDRIA SZYMANSKI Jun 03, 2021 09:36 CHARLES LINN MD FACP FAC CCDS Jun 03, 2021 11:01
[2021-06-03] MEDS: ENALAPRIL 10 MG (VASOTEC) TAB PO SCH (09:40)
[2021-06-03] MEDS: meTOproloL SUCCINATE 50 MG (TOPROL XL) TAB PO SCH (09:41)
[2021-06-03] MEDS: APIXABAN 5 MG (ELIQUIS) TABLET PO SCH (09:41)
[2021-06-03] MEDS: FLECAINIDE 150 MG PO SCH (09:42)
[2021-06-03] MEDS: doxAzosin 4 MG (CARDURA) TAB PO SCH (09:43)
[2021-06-03] MEDS: SENNOSIDES 8.6 MG (SENOKOT) TAB PO SCH (09:44)
[2021-06-03] MEDS: DOCUSATE SODIUM 100 MG (COLACE) CAP PO SCH (09:44)
[2021-06-03] MEDS: cefTRIAXone 1 GM PRE-MIX 50 ML IV SCH (09:50)
--- NOTE | 2021-06-03 10:31 | Physical Therapy Daily Note ---
PT Daily Note-Current Subjective Pt resting in bed, easily awakened. Pt immediately recalls this COMPUTER SYSTEM SPECIALIST name from previous outpt therapy treatments. Pt smiling and in good spirits, agreeable to treatment. Pt reports overall improvement since first day of hospitalization. Pain Numeric Pain Scale: 0-No Pain Mental Status Patient Orientation: Person, Place, Situation Attachments: Delgado Catheter Transfers SCALE: Activities may be completed with or without assistive devices. 6-Hlnboemvsk-eaohost completes the activity by him/herself with no assistance from a helper. 5-Set-up or Clean-up Assistance-helper sets up or cleans up; patient completes activity. [place] assists only prior to or following the activity. 4-Supervision or Touching Assistance-helper provides verbal cues and/or touching/steadying and/or contact guard assistance as patient completes activity. Assistance may be provided throughout the activity or intermittently. 3-Partial/Moderate Assistance-helper does LESS THAN HALF the effort. [place] lifts, holds or supports trunk or limbs, but provides less than half the effort. 2-Substantial/Maximal Assistance-helper does MORE THAN HALF the effort. [place] lifts or holds trunk or limbs and provides more than half the effort. 7-Nmxyermes-webejf does ALL the effort. Patient does none of the effort to complete the activity. Or, the assistance of 2 or more helpers is required for the patient to complete the activity. If activity was not attempted, code reason: 7-Patient Refused. 9-Not Applicable-not attempted and the patient did not perform the activity before the current illness, exacerbation or injury. 10-Not Attempted due to Environmental Limitations-(lack of equipment, weather restraints, etc.). 88-Not Attempted due to Medical Conditions or Safety Concerns. Bed mobility and transfer mod (I) Gait Training Gait Assistive Device: FWW Pt amb with FWW and CGA, O2 at 2L/min x 250ft. Pt amb slow steady speed. Exercises Supine Ex: Ankle pumps, Quad Set, Heel Slides Supine Reps: 15 Seated Therapy Exercises: Long arc quads, Hip flexion Seated Reps: 15 Treatments Pt resting in recliner with legs elevated, O2 per nasal canula post treatment. Pt with call light. Assessment Current Status: Good Progress Pt progressing appropriately. Pt able to stand easily with bed elevated. Pt needs met, O2 insitu post therapy session. Call light in reach. PT Account Advisor Goals Senior Care Goals PT Senior Care Goals Time Frame: Jun 13, 2021 Roll Left & Right (QC): 6 Sit to Lying (QC): 6 Lying-Sitting on Side/Bed(QC): 6 Sit to Stand (QC): 6 Chair/Lsl-gi-Ouxvh Xfer(QC): 6 Toilet Transfer (QC): 6 Does the Patient Walk: Yes Walk 10 feet (QC): 6 Walk 50ft with 2 Turns (QC): 6 Walk 150 ft (QC): 6 Walking 10ft on Uneven Surface: 6 PT Plan Treatment/Plan Treatment Plan: Continue Plan of Care Treatment Plan: Bed Mobility, Education, Functional Activity Devika, Functional Strength, Gait, Safety, Therapeutic Exercise, Transfers Treatment Duration: Jun 13, 2021 Frequency: 6 times per week Estimated Hrs Per Day: .25 hour per day Time/GCodes Time In: 830 Time Out: 846 Total Billed Treatment Time: 16 Total Billed Treatment 1, gait 10', Ther ex 6' VINITA MUÑOZ CPTTonya Jun 03, 2021 10:31
[2021-06-03] MEDS ORDERED: TRIA1TAB5 PO (11:45)
[2021-06-03] MEDS ORDERED: DOXA4TAB2 PO (11:45)
[2021-06-03 12:00] VITALS: BP 162/71
--- NOTE | 2021-06-03 12:18 | Discharge Summary ---
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 Who presented to my clinic with SOB, she was assessed to be in need of IV Lasix. So 40 mg of IV Lasix BID with davenport catheter administered has been maintained and she has had a good 1800 cc output since that time. BNP is elevated at 265. Chest x-ray shows pulmonary congestion. Overall cardiology will continue to watch her. We will optimize her treatment and discontinue the Norvasc. Discharge Summary Discharge Physical Examination Allergies: Coded Allergies: insulin detemir (Verified Allergy, Intermediate, RASH, takes Lantus & Humalog at home, 08/23/18) red bumps at insertion site of injection Has received regular insulin & Novolog during previous hospitalization morphine (Verified Adverse Reaction, Intermediate, Vomiting, 07/05/19) Vitals & I&Os Vital Signs Date Time Temp Pulse Resp B/P (MAP) Pulse Ox O2 Delivery O2 Flow Rate FiO2 06/03/21 16:15 36.7 57 20 162/71 95 Nasal Cannula 2.00 06/01/21 21:10 28 General Appearance: Alert, Oriented X3, Cooperative Respiratory: Clear to Auscultation Cardiovascular: Regular Rate Neuro: Normal Gait, Normal Speech, Strength at 5/5 X4 Ext Psych/Mental Status: Mental Status NL Hospital Course Was the Problem List Reviewed?: Yes Pt had a brief hospital course after she was admitted from my office for volume overload. Norvasc was stopped. IV diuresis of 40 mg of Lasix was initiated BID along with davenport catheter. Cardiology was consulted for hypertension. She overall did very well and at time of discharge she was discharged on Dyazide. She will have close follow-up with my clinic along with [facility] due to severe aggressive diuresis. Labs (last 24 hrs) Laboratory Tests 06/01/21 19:45: White Blood Count 7.0, Red Blood Count 2.89L, Hemoglobin 8.3L, Hematocrit 28L, Mean Corpuscular Volume 98, Mean Corpuscular Hemoglobin 29, Mean Corpuscular He moglobin Concent 29L, Red Cell Distribution Width 16.4H, Platelet Count 222, Mean Platelet Volume 11.6, Immature Granulocyte % (Auto) 0, Neutrophils (%) (Auto) 79H, Lymphocytes (%) (Auto) 8L, Monocytes (%) (Auto) 8, Eosinophils (%) (Auto) 5, Basophils (%) (Auto) 0, Neutrophils # (Auto) 5.5, Lymphocytes # (Auto) 0.6L, Monocytes # (Auto) 0.6, Eosinophils # (Auto) 0.3, Basophils # (Auto) 0.0, Immature Granulocyte # (Auto) 0.0, Neutrophils % (Manual) 82, Lymphocytes % (Manual) 7, Monocytes % (Manual) 8, Eosinophils % (Manual) 3, Polychromasia M ODERATE, Blood Morphology Comment NA, Sodium Level 145, Potassium Level 4.6, Chloride Level 108H, Carbon Dioxide Level 26, Anion Gap 11, Blood Urea Nitrogen 23H, Creatinine 1.20, Estimat Glomerular Filtration Rate 48, BUN/Creatinine Ratio 19, Glucose Level 77, Lactic Acid Level 1.77, Calcium Level 8.9, Corrected Calcium 9.1, Total Bilirubin 1.1H, Aspartate Amino Transf (AST/SGOT) 20, Alanine Aminotransferase (ALT/SGPT) 16, Alkaline Phosphatase 86, Troponin I < 0.028, B- Type Natriuretic Peptide 265.3H, Total Protein 6.6, Albumin 3.7, Procalcitonin 0.03 06/01/21 20:15: Urine Color YELLOW, Urine Clarity CLEAR, Urine pH 5.5, Urine Specific [place] 1.025H, Urine Protein 1+H, Urine Glucose (UA) NEGATIVE, Urine Ketones TRACEH, Urine Nitrite NEGATIVE, Urine Bilirubin NEGATIVE, Urine Urobilinogen 0.2, Urine Leukocyte Esterase NEGATIVE, Urine RBC (Auto) NEGATIVE, Urine RBC RARE, Urine WBC 10-25H, Urine Squamous Epithelial Cells 0-2, Urine Renal Epithelial Cells NONE, Urine Crystals NONE, Urine Bacteria LARGEH, Urine Casts NONE, Urine Mucus NEGATIVE, Urine Culture Indicated YES 06/02/21 05:20: White Blood Count 7.4, Red Blood Count 2.83L, Hemoglobin 8.1L, Hematocrit 27L, Mean Corpuscular Volume 97, Mean Corpuscular Hemoglobin 29, Mean Corpuscular Hemoglobin Concent 30L, Red Cell Distribution Width 16.2H, Platelet Count 215, Mean Platelet Volume 11.8, Immature Granulocyte % (Auto) 0, Neutrophils (%) (Auto) 73, Lymphocytes (%) (Auto) 12, Monocytes (%) (Auto) 9, Eosinophils (%) (Auto) 6, Basophils (%) (Auto) 1, Neutrophils # (Auto) 5.4, Lymphocytes # (Auto) 0.9L, Monocytes # (Auto) 0.6, Eosinophils # (Auto) 0.4H, Basophils # (Auto) 0.0, Immature Granulocyte # (Auto) 0.0, Sodium Level 144, Potassium Level 4.1, Chloride Level 107, Carbon Dioxide Level 27, Anion Gap 10, Blood Urea Nitrogen 22H, Creatinine 0.94, Estimat Glomerular Filtration Rate 64, BUN/Creatinine Ratio 23, Glucose Level 95, Calcium Level 8.9, Corrected Calcium 9.2, Total Bilirubin 1.2H, Aspartate Amino Transf (AST/SGOT) 18, Alanine Aminotransferase (ALT/SGPT) 15, Alkaline Phosphatase 79, Total Protein 6.8, Albumin 3.6 06/02/21 11:29: Glucometer 247H 06/02/21 16:43: Glucometer 281H 06/02/21 20:41: Glucometer 205H 06/03/21 05:31: Glucometer 121H 06/03/21 06:47: White Blood Count 7.3, Red Blood Count 2.90L, Hemoglobin 8.3L, Hematocrit 28L, Mean Corpuscular Volume 96, Mean Corpuscular Hemoglobin 29, Mean Corpuscular Hemoglobin Concent 30L, Red Cell Distribution Width 16.0H, Platelet Count 207, Mean Platelet Volume 11.1, Immature Granulocyte % (Auto) 0, Neutrophils (%) (Auto) 72, Lymphocytes (%) (Auto) 10L, Monocytes (%) (Auto) 10, Eosinophils (%) (Auto) 7, Basophils (%) (Auto) 1, Neutrophils # (Auto) 5.3, Lymphocytes # (Auto) 0.7L, Monocytes # (Auto) 0.7, Eosinophils # (Auto) 0.5H, Basophils # (Auto) 0.1, Immature Granulocyte # (Auto) 0.0 06/03/21 07:00: Sodium Level 142, Potassium Level 4.4, Chloride Level 102, Carbon Dioxide Level 29, Anion Gap 11, Blood Urea Nitrogen 20H, Creatinine 0.90, Estimat Glomerular Filtration Rate 68, BUN/Creatinine Ratio 22, Glucose Level 143H, Calcium Level 9.1, Corrected Calcium 9.3, Total Bilirubin 1.4H, Aspartate Amino Transf (AST/SGOT) 17, Alanine Aminotransferase (ALT/SGPT) 14, Alkaline Phosphatase 85, Total Protein 7.0, Albumin 3.7 06/03/21 11:33: Glucometer 285H Microbiology 06/01/21 Urine Culture - Final, Complete Escherichia coli Pending Labs Microbiology Date/Time Source Procedure Growth Status 06/01/21 20:15 Urine Clean Catch Urine Culture - Final Escherichia coli Complete Laboratory Tests 06/01/21 19:45: White Blood Count 7.0, Red Blood Count 2.89, Hemoglobin 8.3, Hematocrit 28, Mean Corpuscular Volume 98, Mean Corpuscular Hemoglobin 29, Mean Corpuscular Hemoglobin Concent 29, Red Cell Distribution Width 16.4, Platelet Count 222, Mean Platelet Volume 11.6, Immature Granulocyte % (Auto) 0, Neutrophils (%) (Auto) 79, Lymphocytes (%) (Auto) 8, Monocytes (%) (Auto) 8, Eosinophils (%) (Auto) 5, Basophils (%) (Auto) 0, Neutrophils # (Auto) 5.5, Lymphocytes # (Auto) 0.6, Monocytes # (Auto) 0.6, Eosinophils # (Auto) 0.3, Basophils # (Auto) 0.0, Immature Granulocyte # (Auto) 0.0, Neutrophils % (Manual) 82, Lymphocytes % (M anual) 7, Monocytes % (Manual) 8, Eosinophils % (Manual) 3, Polychromasia MODERATE, Blood Morphology Comment NA, Sodium Level 145, Potassium Level 4.6, Chloride Level 108, Carbon Dioxide Level 26, Anion Gap 11, Blood Urea Nitrogen 23, Creatinine 1.20, Estimat Glomerular Filtration Rate 48, BUN/Creatinine Ratio 19, Glucose Level 77, Lactic Acid Level 1.77, Calcium Level 8.9, Corrected Calcium 9.1, Total Bilirubin 1.1, Aspartate Amino Transf (AST/SGOT) 20, Alanine Aminotransferase (ALT/SGPT) 16, Alkaline Phosphatase 86, Troponin I < 0.028, B- Type Natriuretic Peptide 265.3, Total Protein 6.6, Albumin 3.7, Procalcitonin 0.03 06/01/21 20:15: Urine Color YELLOW, Urine Clarity CLEAR, Urine pH 5.5, Urine Specific [place] 1.025, Urine Protein 1+, Urine Glucose (UA) NEGATIVE, Urine Ketones TRACE, Urine Nitrite NEGATIVE, Urine Bilirubin NEGATIVE, Urine Urobilinogen 0.2, Urine Leukocyte Esterase NEGATIVE, Urine RBC (Auto) NEGATIVE, Urine RBC RARE, Urine WBC 10-25, Urine Squamous Epithelial Cells 0-2, Urine Renal Epithelial Cells NONE, Urine Crystals NONE, Urine Bacteria LARGE, Urine Casts NONE, Urine Mucus NEGATIVE, Urine Culture Indicated YES 06/02/21 05:20: White Blood Count 7.4, Red Blood Count 2.83, Hemoglobin 8.1, Hematocrit 27, Mean Corpuscular Volume 97, Mean Corpuscular Hemoglobin 29, Mean Corpuscular Hemoglobin Concent 30, Red Cell Distribution Width 16.2, Platelet Count 215, Mean Platelet Volume 11.8, Immature Granulocyte % (Auto) 0, Neutrophils (%) (Auto) 73, Lymphocytes (%) (Auto) 12, Monocytes (%) (Auto) 9, Eosinophils (%) (Auto) 6, Basophils (%) (Auto) 1, Neutrophils # (Auto) 5.4, Lymphocytes # (Auto) 0.9, Monocytes # (Auto) 0.6, Eosinophils # (Auto) 0.4, Basophils # (Auto) 0.0, Immature Granulocyte # (Auto) 0.0, Sodium Level 144, Potassium Level 4.1, Chloride Level 107, Carbon Dioxide Level 27, Anion Gap 10, Blood Urea Nitrogen 22, Creatinine 0.94, Estimat Glomerular Filtration Rate 64, BUN/Creatinine Ratio 23, Glucose Level 95, Calcium Level 8.9, Corrected Calcium 9.2, Total Bilirubin 1.2, Aspartate Amino Transf (AST/SGOT) 18, Alanine Aminotransferase (ALT/SGPT) 15, Alkaline Phosphatase 79, Total Protein 6.8, Albumin 3.6 06/02/21 11:29: Glucometer 247 06/02/21 16:43: Glucometer 281 06/02/21 20:41: Glucometer 205 06/03/21 05:31: Glucometer 121 06/03/21 06:47: White Blood Count 7.3, Red Blood Count 2.90, Hemoglobin 8.3, Hematocrit 28, Mean Corpuscular Volume 96, Mean Corpuscular Hemoglobin 29, Mean Corpuscular Hemoglobin Concent 30, Red Cell Distribution Width 16.0, Platelet Count 207, Mean Platelet Volume 11.1, Immature Granulocyte % (Auto) 0, Neutrophils (%) (Auto) 72, Lymphocytes (%) (Auto) 10, Monocytes (%) (Auto) 10, Eosinophils (%) (Auto) 7, Basophils (%) (Auto) 1, Neutrophils # (Auto) 5.3, Lymphocytes # (Auto) 0.7, Monocytes # (Auto) 0.7, Eosinophils # (Auto) 0.5, Basophils # (Auto) 0.1, Immature Granulocyte # (Auto) 0.0 06/03/21 07:00: Sodium Level 142, Potassium Level 4.4, Chloride Level 102, Carbon Dioxide Level 29, Anion Gap 11, Blood Urea Nitrogen 20, Creatinine 0.90, Estimat Glomerular Filtration Rate 68, BUN/Creatinine Ratio 22, Glucose Level 143, Calcium Level 9.1, Corrected Calcium 9.3, Total Bilirubin 1.4, Aspartate Amino Transf (AST/SGOT) 17, Alanine Aminotransferase (ALT/SGPT) 14, Alkaline Phosphatase 85, Total Protein 7.0, Albumin 3.7 06/03/21 11:33: Glucometer 285 Discharge Home Medications: Active Scripts Active Triamterene-Hctz 75-50 mg Tab (Triamterene/Hydrochlorothiazid) 1 Each Tablet 0.5 Ea PO DAILY Doxazosin Mesylate 4 Mg Tablet 4 Mg PO TID Reported Fish Oil 1,400 mg Softgel ([place]-3/Dha/Epa/Fish Oil) 1 Each Capsule.dr 1 Each PO DAILY Humalog Kwikpen (Insulin Lispro) 100 Unit/1 Ml Insuln.pen 12-20 Units SC AC MDD 60 UNITS USES THE FOLLOWING SLIDING SCALE: 0-149=12 UNITS 150-199=14 UNITS 200-249=16 UNITS 250-299=18 UNITS 300 AND OVER=20 UNITS Metoprolol Succinate 50 Mg Tab.er.24h 50 Mg PO DAILY Omeprazole 20 Mg Capsule.dr 20 Mg PO DAILY Furosemide 40 Mg Tablet 40 Mg PO DAILY Flecainide Acetate 150 Mg Tablet 150 Mg PO Q12H Enalapril Maleate 10 Mg Tablet 20 Mg PO DAILY TAKES 2 (10MG)TABS Toujeo Solostar (Insulin Glargine,Hum.rec.anlog) 300 Unit/1 Ml Insuln.pen 25 Unit SQ HS Cetirizine HCl 10 Mg Tablet 10 Mg PO DAILY Montelukast Sodium 10 Mg Tablet 10 Mg PO HS Eliquis (Apixaban) 5 Mg Tablet 5 Mg PO Q12H Pravastatin Sodium 40 Mg Tablet 40 Mg PO HS Multivitamins (Multivitamin) 1 Each Tablet 1 Tab PO DAILY Lutein 6 Mg Capsule 6 Mg PO DAILY Levothyroxine Sodium 100 Mcg Tablet 100 Mcg PO DAILY Instructions to patient/family Please see electronic discharge instructions given to patient. Diagnosis/Problems Diagnosis/Problems (1) HEATHER Grubbs DO Jun 03, 2021 12:18
--- NOTE | 2021-06-03 12:41 | Progress Note ---
[facility] 06/03/21 1241: Progress Note Brief Hospital Course: Patient was admitted on 06/01/2021 and discharged 06/03/2021. Patient was a direct admit to the 4th floor for observation. Patient received a CMP, CBC, BNP, Cardiac enzymes, EKG, and Chest x-ray. CBC, CMP, and troponins were unremarkable. BNP was 265.3, UA revealed 10-25 WBC with gram negative rods. Chest X-ray showed cardiac enlargement with central vascular congestion. EKG revealed sinus rhythm. Patient was admitted to medicine and consulted cardiology, and PT. Hospital interventions included davenport catheter and peripheral IV with 40mg of Lasix BID which resulted in a urine output of 5825 mL . On discharge, patient was sent home on Rocephin for UTI and Dyazide and Doxazosin for HTN. Norvasc will be discontinued but all other home meds will be resumed . This summary does not include the entirety of the patient's visit and is only a short description of pertinent lab values and information. For the complete hospital course, please refer to the patient's chart. Date of Admission: 06/01/2021 Date of Discharge: 06/03/2021 Attending Physician: Dr. Brittany Felipe DO Admission Diagnosis: Dyspnea Discharge Diagnosis: HTN, UTI Consultations: Cardiology, PT, Procedures: None BRITTANY FELIPE DO 06/04/21 0548: Supervisory-Addendum Brief Verification & Attestation Participated in pt care: history, MDM, physical Personally performed: exam, history, MDM, supervision of care Care discussed with: Medical Student Procedures: n/a Results interpretation: Verified all documentation Verification and Attestation of Medical Student E/M Service A medical student performed and documented this service in my presence. I reviewed and verified all information documented by the medical student and made modifications to such information, when appropriate. I personally performed the physical exam and medical decision making. Brittany Felipe, Jun 04, 2021,05:48 [facility] Jun 03, 2021 12:41 BRITTANY FELIPE DO Jun 04, 2021 05:48
[2021-06-03] MEDS ORDERED: ceTIRizine 10 MG (ZyrTEC) TAB NON-FORMULARY PO SCH (13:30)
[2021-06-03] MEDS ORDERED: doxAzosin 4 MG (CARDURA) TAB PO SCH (13:30)
[2021-06-03 16:15] VITALS: BP 162/71
[2021-06-03] MEDS ORDERED: [UNRECOGNIZED DRUG - REMARK] PO SCH (21:00)
[2021-06-03] MEDS ORDERED: MONTELUKAST 10 MG (SINGULAIR) TAB PO SCH (21:00)
[2021-06-03] MEDS ORDERED: [UNRECOGNIZED DRUG - REMARK] SQ SCH (21:00)
== END 2021-06-03 16:15 | disposition home or self-care (01) ==
LOC: 4TH 19:13
PROVIDERS: ADMIT Internal Medicine; ATTEND Internal Medicine
DX: R60.1 Generalized edema (principal); G47.33 Obstructive sleep apnea (adult) (pediatric); I11.0 Hypertensive heart disease with heart failure; N39.0 Urinary tract infection, site not specified; E03.9 Hypothyroidism, unspecified; E78.5 Hyperlipidemia, unspecified; I50.33 Acute on chronic diastolic (congestive) heart failure; E66.9 Obesity, unspecified; E11.40 Type 2 diabetes mellitus with diabetic neuropathy, unspecified; I48.0 Paroxysmal atrial fibrillation; K21.9 Gastro-esophageal reflux disease without esophagitis; M19.90 Unspecified osteoarthritis, unspecified site; K59.09 Other constipation; I45.89 Other specified conduction disorders; I25.10 Atherosclerotic heart disease of native coronary artery without angina pectoris; Z79.899 Other long term (current) drug therapy; Z79.4 Long term (current) use of insulin; Z79.01 Long term (current) use of anticoagulants; Z79.890 Hormone replacement therapy; Z96.652 Presence of left artificial knee joint; Z68.42 Body mass index [BMI] 45.0-49.9, adult
CPT/HCPCS: 36415; 71045; 80053; 81000; 82947; 83605; 83880; 84145; 84484; 85007; 85025; 85027; 87088; 87186; 93005; 94010; 94760; 94761

== ENCOUNTER → 2021-08-04 | Outpatient (CLI) | payer MEDICARE, OTHER ==
[~2021-08-04] MED LIST changes: +INSU100I23 SC; +OMEG-9 PO; +TRIA1TAB5 PO
--- NOTE | 2021-08-05 09:26 | Diagnostic Imaging Report ---
INDICATION: Routine screening. COMPARISON: 10/31/2019 and 01/24/2014. TECHNIQUE: 2D and 3D bilateral screening mammography was performed with CAD. FINDINGS: Scattered fibroglandular densities are identified bilaterally. The overall parenchymal pattern is stable. There are scattered benign calcifications. A nodular density in the outer right breast is stable. No new mass or malignant-appearing microcalcifications are seen. The axillae are unremarkable. IMPRESSION: No mammographic features suspicious for malignancy are identified. ACR BI-RADS Category 2: Benign findings. Result letter will be mailed to the patient. Note: At least 10% of breast cancer is not imaged by mammography. Dictated by: Dictated on workstation # [id number]
== END ==
LOC: RAD 14:15
PROVIDERS: ATTEND Internal Medicine
DX: Z12.31 Encounter for screening mammogram for malignant neoplasm of breast (principal)
CPT/HCPCS: 77063; 77067

== ENCOUNTER 2021-10-17 00:54 | Inpatient (IN) | payer MEDICARE, OTHER ==
[~2021-10-17] VITALS: Ht 165.1 cm; Wt 111.8 kg
[2021-10-17] VITALS (11 sets, daily range): BP systolic 92–179; BP diastolic 56–107
[2021-10-17] MEDS ORDERED: NS IV 1000 ML 1,000 ML IV SCH ×4 (01:00→09:45)
--- NOTE | 2021-10-17 01:16 | ED General ---
General Chief Complaint: Respiratory Problems Stated Complaint: WEAKNESS Source of Information: Patient History of Present Illness Date Seen by Provider: Oct 17, 2021 Time Seen by Provider: 00:55 Initial Comments PT ARRIVES VIA EMS FROM HOME C/O GENERALIZED WEAKNESS FOR 3 DAYS HAS NOTICED LOOSE, BLOODY STOOLS "ALL DAY" --HAS HAD 3 STOOLS TODAY NO ABDOMINAL PAIN NO CHEST PAIN NO NAUSEA/VOMITING--HAS CONTINUED TO EAT AND DRINK USUAL NO FEVER PT HAS HAD SHORTNESS OF BREATH WITH MINIMAL EXERTION FOR THE LAST 2-3 DAYS PT DENIES HISTORY OF PRIOR RESPIRATORY PROBLEMS OR HOME O2. NO HISTORY OF SIMILAR NO PRIOR ABDOMINAL SURGERIES OR GI PROBLEMS PT IS ON ELIQUIS FOR CHRONIC ATRIAL FIBRILLATION. PT ALSO HAS HTN AND INSULIN-DEPENDENT DIABETES. PT HAS NOT TAKEN HER EVENING MEDICATIONS TONIGHT. BP 102/64, PULSE 58, BLOOD SUGAR 200 FOR EMS PCP: DR. HOOKS WELDING ESTIMATOR: DR. LINN Allergies and Home Medications Allergies Coded Allergies: insulin detemir (Verified Allergy, Intermediate, RASH, takes Lantus & Humalog at home, 08/23/18) red bumps at insertion site of injection Has received regular insulin & Novolog during previous hospitalization morphine (Verified Adverse Reaction, Intermediate, Vomiting, 07/05/19) Patient Home Medication List Home Medication List Reviewed: Yes Apixaban (Eliquis) 5 Mg Tablet, 5 MG PO Q12H, (Reported) Entered as Reported by: ALTAF MARAVILLA on 08/01/17 162 Cetirizine HCl (Cetirizine HCl) 10 Mg Tablet, 10 MG PO DAILY, (Reported) Entered as Reported by: ALTAF MARAVILLA on 08/01/17 162 Doxazosin Mesylate (Doxazosin Mesylate) 4 Mg Tablet, 4 MG PO TID Prescribed by: ANDRIA LARRY on 06/03/21 1145 Enalapril Maleate (Enalapril Maleate) 10 Mg Tablet, 20 MG PO DAILY, (Reported) Entered as Reported by: LEVI CHOI on 04/21/21921 Flecainide Acetate (Flecainide Acetate) 150 Mg Tablet, 150 MG PO Q12H, (Reported) Entered as Reported by: LEVI CHOI on 04/21/21921 Furosemide (Furosemide) 40 Mg Tablet, 40 MG PO DAILY, (Reported) Entered as Reported by: LEVI CHOI on 04/21/21921 Insulin Glargine,Hum.rec.anlog (Isis Lechugaar) 300 Unit/1 Ml Insuln.pen, 25 UNIT SQ HS, (Reported) Entered as Reported by: ALTAF MARAVILLA on 06/27/19 1014 Insulin Lispro (Humalog Kwikpen) 100 Unit/1 Ml Insuln.pen, 12-20 UNITS SC AC, (Reported) Entered as Reported by: YISSEL DODSON on 06/02/21836 Levothyroxine Sodium (Levothyroxine Sodium) 100 Mcg Tablet, 100 MCG PO DAILY, (Reported) Entered as Reported by: ALTAF MARAVILLA on 08/01/171626 Lutein (Lutein) 6 Mg Capsule, 6 MG PO DAILY, (Reported) Entered as Reported by: ALTAF MARAVILLA on 08/01/171626 Metoprolol Succinate (Metoprolol Succinate) 50 Mg Tab.er.24h, 50 MG PO DAILY, (Reported) Entered as Reported by: YISSEL DODSON on 06/02/21836 Montelukast Sodium (Montelukast Sodium) 10 Mg Tablet, 10 MG PO HS, (Reported) Entered as Reported by: ALTAF MARAVILLA on 08/01/171626 Multivitamin (Multivitamins) 1 Each Tablet, 1 TAB PO DAILY, (Reported) Entered as Reported by: ALTAF MARAVILLA on 08/01/171626 [place]-3/Dha/Epa/Fish Oil (Fish Oil 1,400 mg Softgel) 1 Each Capsule.dr, 1 EACH PO DAILY, (Reported) Entered as Reported by: YISSEL DODSON on 06/02/21836 Omeprazole (Omeprazole) 20 Mg Capsule.dr, 20 MG PO DAILY, (Reported) Entered as Reported by: LEVI CHOI on 04/21/21921 Pravastatin Sodium (Pravastatin Sodium) 40 Mg Tablet, 40 MG PO HS, (Reported) Entered as Reported by: ALTAF MARAVILLA on 08/01/171626 Triamterene/Hydrochlorothiazid (Triamterene-Hctz 75-50 mg Tab) 1 Each Tablet, 0. 5 EA PO DAILY Prescribed by: ANDRIA LARRY on 06/03/21 1145 Review of Systems Review of Systems Constitutional: see HPI, malaise, weakness EENTM: no symptoms reported Respiratory: see HPI; No cough; dyspnea on exertion, short of breath Cardiovascular: no symptoms reported; No chest pain, No edema, No palpitations, No syncope, No vascular heart diseas Gastrointestinal: see HPI; No abdominal pain; diarrhea; No loss of appetite, No nausea, No vomiting; other (BLOODY STOOLS) Genitourinary: no symptoms reported Musculoskeletal: no symptoms reported Skin: no symptoms reported Psychiatric/Neurological: No Symptoms Reported Hematologic/Lymphatic: See HPI Immunological/Allergic: no symptoms reported Past Didefyd-Wuhnay-Utsyeg Hx Patient Social History Tobacco Use?: No Smoking Status: Never a Smoker Substance use?: No Alcohol Use?: No Immunizations Up To Date Tetanus Booster (TDap): Less than 5yrs PED Vaccines UTD: No First/Initial COVID19 Vaccinat: AUGUST 2020 AMADOU/AMADOU Seasonal Allergies Seasonal Allergies: No Past Medical History Surgeries: Yes (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;BILAT KNEE SCOPES/BILAT TKR;CARD CATH) Bladder Surgery, Breast, Hysterectomy, Joint Replacement, Oophorectomy, Orthopedic Respiratory: Yes (HAD ASTHMA A CHILD, LUNG PROBLEMS WHEN PT GETS COLDS) Sleep Apnea, COPD Currently Using CPAP: Yes Currently Using BIPAP: No Cardiac: Yes (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 12; CHF; CAROTID DISEASE) Atrial Fibrillation, Chronic Edema/Swelling, Coronary Artery Disease, High Cholesterol, Hypertension, Rheumatic Fever Neurological: Yes Neuropathy 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 Disorders: No 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, Menopausal Sexually Transmitted Disease: No HIV/AIDS: No Genitourinary: Yes (NIGHT INCONTINENCE) Bladder Infection Gastrointestinal: Yes Gastroesophageal Reflux, Hemorrhoids Musculoskeletal: Yes (BILAT TOTAL KNEE REPLACEMENTS) Arthritis, Chronic Back Pain, Fractures Endocrine: Yes (OBESITY) Diabetes, Insulin dep, Hypothyroidsim HEENT: Yes (GLASSES) Loss of Vision: Bilateral Hearing Impairment: Denies Cancer: No Psychosocial: No Integumentary: No Blood Disorders: No Adverse Reaction/Blood Tranf: No (N/A) Family Medical History Arthritis 19 FATHER 19 MOTHER Asthma 19 FATHER Cardiovascular disease 19 FATHER 19 MOTHER Cataracts 19 MOTHER Deafness or hearing loss 19 FATHER Dementia 19 MOTHER Diabetes mellitus G8 SISTER G8 SISTER Glaucoma 19 FATHER Hypertension 19 MOTHER Prostate cancer 19 FATHER Respiratory disorder 19 FATHER Thyroid disease G8 SISTER No Pertinent Family Hx PAST SURGICAL HISTORY: -BILATERAL KNEE SCOPES -BILATERAL KNEE REPLACEMENT -RIGHT BREAST --REMOVAL OF BENIGN FIBRO-ADENOMA 1974 -COLONOSCOPY 04/28/[address] DIALLO FOR RECTAL BLEEDING-DX INTERNAL AND EXTERNAL HEMORRHOIDS -RIGHT ANKLE FX/ORIF 10/2020 -CARDIAC CATH 10/2011--NO INTERVENTION. -HYSTERECTOMY/BILATERAL SALPINGO-OOPHORECTOMY - Physical Exam Vital Signs Vital Signs - First Documented 10/17/21 00:57 Temp 36.7 Pulse 58 Resp 24 B/P (MAP) 118/60 (79) Pulse Ox 95 O2 Delivery Room Air Capillary Refill : Height, Weight, BMI Height: 5'5.00" Weight: 226lbs. 4.0oz. 102.439565he; 47.75 BMI Method:Stated General Appearance: WD/WN, Mild Distress (DYSPNEIC, WITH ABDOMINAL RETRACTIONS, ABLE TO TALK IN FULL SENTENCES. ), Obese HEENT: PERRL/EOMI, Normal ENT Inspection, Pharynx Normal, Pale Conjunctivae (L), Pale Conjunctivae (R), Other (NASAL "WHEEZING" ; DRY ORAL MUCOSA) Neck: Non Tender Respiratory: Accessory Muscle Use, Decreased Breath Sounds; No Rales, No Rhonci, No Wheezing; Other (DYSPNEIC, WITH DECREASED AERATION IN BASES) Cardiovascular: No JVD, No Murmur, Normal Peripheral Pulses, Irregularly Irregular Gastrointestinal: Normal Bowel Sounds, No Pulsatile Mass, Non Tender, Soft Back: No CVA Tenderness Extremity: Normal Capillary Refill, Non Tender, No Calf Tenderness, Pedal Edema (1+ BILATERALLY) Neurologic/Psychiatric: Alert, Oriented x3, No Motor/Sensory Deficits, Normal Mood/Affect, blending tank tender helper II-XII Norm as Tested Skin: Warm/Dry, Pallor; No Rash; Other (DECREASED TURGOR) Progress/Results/Core Measures Suspected Sepsis SIRS Temperature: Pulse: Respiratory Rate: Laboratory Tests 10/17/21 01:25: White Blood Count 14.2H Blood Pressure / Mean: Laboratory Tests 10/17/21 01:25: Creatinine 3.45H, INR Comment 1.7H, Platelet Count 403H, Total Bilirubin 0.3 Results/Orders Lab Results Laboratory Tests Test 10/17/21 01:25 10/17/21 01:50 Range/Units White Blood Count 14.2 H 4.3-11.0 10^3/uL Red Blood Count 2.86 L 3.80-5.11 10^6/uL Hemoglobin 8.0 L 11.5-16.0 g/dL Hematocrit 26 L 35-52 % Mean Corpuscular Volume 91 80-99 fL Mean Corpuscular Hemoglobin 28 25-34 pg Mean Corpuscular Hemoglobin Concent 31 L 32-36 g/dL Red Cell Distribution Width 15.7 H 10.0-14.5 % Platelet Count 403 H 130-400 10^3/uL Mean Platelet Volume 10.9 9.0-12.2 fL Immature Granulocyte % (Auto) 1 % Neutrophils (%) (Auto) 84 H 42-75 % Lymphocytes (%) (Auto) 6 L 12-44 % Monocytes (%) (Auto) 7 0-12 % Eosinophils (%) (Auto) 1 0-10 % Basophils (%) (Auto) 0 0-10 % Neutrophils # (Auto) 12.0 H 1.8-7.8 10^3/uL Lymphocytes # (Auto) 0.9 L 1.0-4.0 10^3/uL Monocytes # (Auto) 1.0 0.0-1.0 10^3/uL Eosinophils # (Auto) 0.1 0.0-0.3 10^3/uL Basophils # (Auto) 0.0 0.0-0.1 10^3/uL Immature Granulocyte # (Auto) 0.2 H 0.0-0.1 10^3/uL Neutrophils % (Manual) 83 % Lymphocytes % (Manual) 8 % Monocytes % (Manual) 7 % Eosinophils % (Manual) 1 % Basophils % (Manual) 1 % Atypical Lymphocytes 1 % Clumped Platelets SOME CLUMPING SEEN Polychromasia SLIGHT Erythrocyte Sedimentation Rate > 140 H 0-30 MM/HR Prothrombin Time 20.3 H 12.2-14.7 SEC INR Comment 1.7 H 0.8-1.4 Activated Partial Thromboplast Time 36 H 24-35 SEC Sodium Level 132 L 135-145 MMOL/L Potassium Level 4.6 3.6-5.0 MMOL/L Chloride Level 102 98-107 MMOL/L Carbon Dioxide Level 15 L 21-32 MMOL/L Anion Gap 15 H 5-14 MMOL/L Blood Urea Nitrogen 91 H 7-18 MG/DL Creatinine 3.45 H 0.60-1.30 MG/DL Estimat Glomerular Filtration Rate 14 BUN/Creatinine Ratio 26 Glucose Level 201 H 70-105 MG/DL Calcium Level 9.2 8.5-10.1 MG/DL Corrected Calcium 9.6 8.5-10.1 MG/DL Magnesium Level 2.6 H 1.6-2.4 MG/DL Total Bilirubin 0.3 0.1-1.0 MG/DL Aspartate Amino Transf (AST/SGOT) 39 H 5-34 U/L Alanine Aminotransferase (ALT/SGPT) 22 0-55 U/L Alkaline Phosphatase 160 H 40-136 U/L Total Creatine Kinase 7 L 29-168 U/L Creatine Kinase MB 0.9 <6.6 NG/ML Myoglobin 63.2 10.0-92.0 NG/ML Troponin I < 0.028 <0.028 NG/ML C-Reactive Protein High Sensitivity 12.65 H 0.00-0.50 MG/DL Total Protein 8.3 H 6.4-8.2 GM/DL Albumin 3.5 3.2-4.5 GM/DL TSH [place] Testing 0.97 0.35-4.94 UIU/ML Urine Color YELLOW Urine Clarity CLEAR Urine pH 5.0 5-9 Urine Specific Harmon >=1.030 1.016-1.022 Urine Protein TRACE H NEGATIVE Urine Glucose (UA) NEGATIVE NEGATIVE Urine Ketones 1+ H NEGATIVE Urine Nitrite NEGATIVE NEGATIVE Urine Bilirubin 2+ H NEGATIVE Urine Urobilinogen 0.2 < = 1.0 MG/DL Urine Leukocyte Esterase NEGATIVE NEGATIVE Urine RBC (Auto) NEGATIVE NEGATIVE Urine RBC 2-5 H /HPF Urine WBC 2-5 /HPF Urine Squamous Epithelial Cells 2-5 /HPF Urine Crystals PRESENT H /LPF Urine Calcium Oxalate Crystals FEW H /LPF Urine Bacteria MODERATE H /HPF Urine Casts NONE /LPF Urine Mucus NEGATIVE /LPF Urine Culture Indicated YES My Orders Orders - HAN MENDOZA DO Ed Iv/Invasive Line Start (10/17/21 00:58) Ekg Tracing (10/17/21 00:58) Catheter(Urinary) Insert & Ass 03,15 (10/17/21 00:58) O2 (10/17/21 00:58) Monitor-Rhythm Ecg Trace Only (10/17/21 00:58) Cbc With Automated Diff (10/17/21 00:58) Comprehensive Metabolic Panel (10/17/21 00:58) Creatine Kinase (10/17/21 00:58) Creatine Kinase Mb (10/17/21 00:58) Hs C Reactive Protein (10/17/21 00:58) Magnesium (10/17/21 00:58) Protime With Inr (10/17/21 00:58) Partial Thromboplastin Time (10/17/21 00:58) Thyroid Analyzer (10/17/21 00:58) Ua Culture If Indicated (10/17/21 00:58) Erythrocyte Sedimentation Rate (10/17/21 00:58) Myoglobin Serum (10/17/21 00:58) Troponin I Nava (10/17/21 00:58) Ed Iv/Invasive Line Start (10/17/21 00:58) Ns Iv 1000 Ml (Sodium Chloride 0.9%) (10/17/21 01:00) Fecal Occult Bedside (10/17/21 01:09) Chest 1 View, Ap/Pa Only (10/17/21 01:20) Manual Differential (10/17/21 01:25) Red Cells Leukocytes Reduced (10/17/21 01:52) Type And Screen (10/17/21 01:52) Ct Abdomen/Pelvis Wo (10/17/21 01:57) Pantoprazole Injection (Protonix Injecti (10/17/21 02:15) Urine Culture (10/17/21 01:50) Ns Iv 500 Ml (Sodium Chloride 0.9%) (10/17/21 02:59) Octreotide Injection (Sandostatin Inje (10/17/21 04:45) Ns (Ivpb) (Sodium C... W/Octreotide Inj (10/17/21 04:45) Medications Given in ED Current Medications Medications Dose Ordered Sig/Michelle Route Start Time Stop Time Status Last Admin Dose Admin Pantoprazole 80 mg ONCE ONCE IV 10/17/21 02:15 10/17/21 02:16 DC 10/17/21 03:12 80 MG Sodium Chloride 500 ml @ [facility]-MED ONCE .ROUTE 10/17/21 02:59 10/17/21 03:02 DC 10/17/21 03:15 500 MLS/HR Vital Signs/I&O 10/17/21 00:57 Temp 36.7 Pulse 58 Resp 24 B/P (MAP) 118/60 (79) Pulse Ox 95 O2 Delivery Room Air Capillary Refill : Progress Note : Progress Note PLACED ON O2 AT 2L/NC DUE TO DYSPNEA, O2 SAT 95% ON ROOM AIR. VERY DIFFICULT IV ACCESS HEMOCCULT + GIVEN IV FLUIDS AND BLOOD TRANSFUSION, WELL PROTONIX AND OCTREOTIDE URINE OUTPUT 40 ML IN ER BP UP TO 130'S WITH IV FLUIDS AND BLOOD NO DETERIORATION IN PT'S CONDITION DURING ER STAY PT HAD NO COMPLAINTS DURING ER STAY PT HAD ONE SMALL LOOSE STOOL, NOT GROSSLY BLOODY. ECG Initial ECG Impression Date: Oct 17, 2021 Initial ECG Impression Time: 01:13 Initial ECG Rate: 56 Initial ECG Rhythm: Normal Sinus (IVCD) Initial ECG Impression: Nonspecific Changes Diagnostic Imaging Comments CXR--CARDIOMEGALY, PENDING RADIOLOGIST REVIEW CT ABDOMEN/PELVIS--PER RADIOLOGIST REPORT AT 0440 There is a pericardial effusion measuring 1 cm in thickness. Lung bases are clear. Liver appears normal. There appears be small calculus in the gallbladder. Gallbladder is nondistended. Pancreas is unremarkable. Spleen is normal. There is aortic atherosclerosis. Kidneys and adrenals appear normal. Small bowel is not dilated. There is no evidence for appendicitis. Colon is unremarkable. There is a Delgado catheter in urinary bladder. Uterus is surgically absent. There is no intraperitoneal free air or free fluid. IMPRESSION: Moderate-sized pericardial effusion. Cholecystolithiasis without evidence of obstruction. Reviewed: Reviewed by Md Departure Communication (Admissions) 0132--SPOKE WITH DR. VICENTE, ALL STUDIES PENDING, SHE ACCEPTS PT FOR ADMIT, PENDING TEST RESULTS. WILL TRANSFUSE IF NEEDED. WILL CONSULT CARDIOLOGY AND S URGERY Impression Primary Impression: GI bleed Additional Impressions: Anemia Acute renal failure Dehydration ELIQUIS THERAPY Chronic atrial fibrillation IDDM (insulin dependent diabetes mellitus) UTI (urinary tract infection) Disposition: ADMITTED INPATIENT Condition: Stable Admissions Decision to Admit Reason: Admit from ER (General) Decision to Admit/Date: Oct 17, 2021 Time/Decision to Admit Time: 01:35 Departure-Patient Inst. Referrals: HEATHER HOOKS DO (PCP/Family) Primary Care Physician HAN MENDOZA DO Oct 17, 2021 01:16
[2021-10-17 01:37] LABS: BASOPHILS % (AUTO) 0 % (0-10); EOSINOPHILS # (AUTO) 0.1 10^3/uL (0.0-0.3); EOSINOPHILS % (AUTO) 1 % (0-10); HEMATOCRIT 26 % (35-52); LYMPHOCYTES # (AUTO) 0.9 10^3/uL (1.0-4.0); LYMPHOCYTES % (AUTO) 6 % (12-44); MEAN CORPUSCULAR HEMOGLOBIN 28 pg (25-34); MEAN CORPUSCULAR HGB CONC 31 g/dL (32-36); MEAN CORPUSCULAR VOLUME 91 fL (80-99); MEAN PLATELET VOLUME 10.9 fL (9.0-12.2); MONOCYTES % (AUTO) 7 % (0-12); NEUTROPHILS % (AUTO) 84 % (42-75); PLATELET COUNT 403 10^3/uL (130-400); WHITE BLOOD COUNT 14.2 10^3/uL (4.3-11.0)
[2021-10-17 01:48] LABS: ALBUMIN 3.5 GM/DL (3.2-4.5); CHLORIDE 102 MMOL/L (98-107); SODIUM 132 MMOL/L (135-145)
[2021-10-17 01:49] LABS: CALCIUM 9.2 MG/DL (8.5-10.1); INR 1.7 (0.8-1.4); PROTHROMBIN TIME PATIENT 20.3 SEC (12.2-14.7)
[2021-10-17 01:51] LABS: GLUCOSE 201 MG/DL (70-105); TOTAL PROTEIN 8.3 GM/DL (6.4-8.2)
[2021-10-17 01:52] LABS: BILIRUBIN,TOTAL 0.3 MG/DL (0.1-1.0); CARBON DIOXIDE 15 MMOL/L (21-32)
[2021-10-17 01:54] LABS: ALKALINE PHOSPHATASE 160 U/L (40-136); CREATININE SERUM 3.45 MG/DL (0.60-1.30); GFR ESTIMATED 14
[2021-10-17 01:55] LABS: BUN/CREATININE RATIO 26
[2021-10-17 01:57] LABS: ALANINE AMINOTRANSFERASE 22 U/L (0-55); MAGNESIUM 2.6 MG/DL (1.6-2.4)
[2021-10-17 01:58] LABS: CREATINE KINASE 7 U/L (29-168)
[2021-10-17 02:05] LABS: CREATINE KINASE MB 0.9 NG/ML (<6.6)
[2021-10-17 02:12] LABS: ERYTHROCYTE SEDIMENTATION RATE > 140 MM/HR (0-30)
[2021-10-17 02:13] LABS: BILIRUBIN,URINE 2+ (NEGATIVE); CLARITY,URINE CLEAR; COLOR,URINE YELLOW; GLUCOSE, URINE (UA) NEGATIVE (NEGATIVE); KETONES,URINE 1+ (NEGATIVE); LEUKOCYTE ESTERASE ,URINE NEGATIVE (NEGATIVE); NITRITE,URINE NEGATIVE (NEGATIVE); PROTEIN,URINE TRACE (NEGATIVE)
[2021-10-17] MEDS ORDERED: PANTOPRAZOLE 40 MG (PROTONIX) VIAL IV ONE (02:15)
[2021-10-17 02:18] LABS: TSH (THYROID ANALYZER) 0.97 UIU/ML (0.35-4.94)
[2021-10-17 02:29] LABS: BACTERIA,URINE MODERATE /HPF; CALCIUM OXALATE CRYSTALS,UR FEW /LPF
[2021-10-17 02:59] LABS: ATYPICAL LYMPHOCYTES 1 %; BASOPHILS % (MANUAL) 1 %; EOSINOPHILS % (MANUAL) 1 %; LYMPHOCYTES % (MANUAL) 8 %; MONOCYTES % (MANUAL) 7 %; NEUTROPHILS % (MANUAL) 83 %; PLATELET CLUMPS SOME CLUMPING SEEN; POLYCHROMASIA SLIGHT
[2021-10-17] MEDS ORDERED: NS IV 500 ML 500 ML ONE (02:59)
--- NOTE | 2021-10-17 04:31 | Diagnostic Imaging Report ---
PROCEDURE: CT abdomen and pelvis without contrast. TECHNIQUE: Multiple contiguous axial images were obtained through the abdomen and pelvis without the use of intravenous contrast. Auto Exposure Controls were utilized during the CT exam to meet ALARA standards for radiation dose reduction. INDICATION: Gastrointestinal bleeding with progressive weakness There is a pericardial effusion measuring 1 cm in thickness. Lung bases are clear. Liver appears normal. There appears be small calculus in the gallbladder. Gallbladder is nondistended. Pancreas is unremarkable. Spleen is normal. There is aortic atherosclerosis. Kidneys and adrenals appear normal. Small bowel is not dilated. There is no evidence for appendicitis. Colon is unremarkable. There is a Delgado catheter in urinary bladder. Uterus is surgically absent. There is no intraperitoneal free air or free fluid. IMPRESSION: Moderate-sized pericardial effusion. Cholecystolithiasis without evidence of obstruction. Dictated by: Dictated on workstation # [id number]
[2021-10-17] MEDS ORDERED: OCTREOTIDE INJECTION 500 MCG in NS (IVPB) 99 ML IV SCH (04:45)
[2021-10-17] MEDS ORDERED: OCTREOTIDE INJECTION 50 MCG in NS (IVPB) 50 ML IV ONE (04:45)
[2021-10-17] MEDS ORDERED: cefTRIAXone 1 GM/50 ML (PRE-MIX) IV SCH (06:00)
[2021-10-17] MEDS ORDERED: ONDANSETRON 4 MG/2 ML (SDV) Z0FRAN IV PRN ×2 (06:15→11:45)
--- NOTE | 2021-10-17 07:07 | Diagnostic Imaging Report ---
INDICATION: Dyspnea. EXAMINATION: Chest 10/17/2021 COMPARISON: 06/01/2021 FINDINGS: The heart is enlarged. Pulmonary vasculature unremarkable. Lungs and pleural spaces clear. No infiltrates or effusions. IMPRESSION: 1. Cardiomegaly with no acute cardiopulmonary process. Dictated by: Dictated on workstation # [id number]
[2021-10-17 07:57] LABS: BASOPHILS % (AUTO) 0 % (0-10); EOSINOPHILS # (AUTO) 0.1 10^3/uL (0.0-0.3); EOSINOPHILS % (AUTO) 1 % (0-10); HEMATOCRIT 29 % (35-52); HEMOGLOBIN 8.6 g/dL (11.5-16.0); LYMPHOCYTES # (AUTO) 0.8 10^3/uL (1.0-4.0); LYMPHOCYTES % (AUTO) 7 % (12-44); MEAN CORPUSCULAR HEMOGLOBIN 28 pg (25-34); MEAN CORPUSCULAR HGB CONC 30 g/dL (32-36); MEAN CORPUSCULAR VOLUME 92 fL (80-99); MEAN PLATELET VOLUME 10.9 fL (9.0-12.2); MONOCYTES # (AUTO) 0.8 10^3/uL (0.0-1.0); MONOCYTES % (AUTO) 7 % (0-12); NEUTROPHILS # (AUTO) 10.2 10^3/uL (1.8-7.8); NEUTROPHILS % (AUTO) 85 % (42-75); PLATELET COUNT 332 10^3/uL (130-400); WHITE BLOOD COUNT 12.1 10^3/uL (4.3-11.0)
[2021-10-17 08:14] LABS: CALCIUM 8.8 MG/DL (8.5-10.1); CREATININE SERUM 2.73 MG/DL (0.60-1.30)
[2021-10-17 08:21] LABS: POTASSIUM 6.6 MMOL/L (3.6-5.0)
[2021-10-17] MEDS ORDERED: CALC GLUC 1 GM/100 ML IVPB 100 ML IV ONE (08:30)
[2021-10-17] MEDS ORDERED: RT-ALBUTEROL SULF 2.5 MG/3 ML PRE-MIX VIAL INH ONE (08:30)
[2021-10-17] MEDS ORDERED: FUROSEMIDE 40 MG/4 ML INJ (LASIX) IVP ONE (08:30)
[2021-10-17] MEDS ORDERED: PANTOPRAZOLE 40 MG (PROTONIX) VIAL IV SCH (09:00)
--- NOTE | 2021-10-17 09:24 | History & Physical-Hospitalist ---
History of Present Illness HPI/Chief Complaint Patient is a 71-year-old female with a past medical history of insulin-dependent diabetes, hypertension, hyperlipidemia, CAD, atrial fibrillation, GI bleed who presented to the emergency department with bloody stools. She states that this has been a chronic issue for her and she has been dealing with weakness for 2 years since she had her knees replaced. She had a colonoscopy in April which revealed hemorrhoids and she has had a few days of bright red bloody stools with otherwise normal-appearing stool matter. Yesterday she noted she was very weak and was hardly able to get from her recliner to the bathroom prompting her to seek evaluation in the emergency department. She reports a very poor oral intake as well. In the emergency department she was found to have hemoglobin of 8 and an SANAM so was admitted for further management. This morning she reports feeling better already with just fluid resuscitation and is sitting on the bedside commode having another bowel movement. Source: patient Exam Limitations: no limitations Date Seen 10/17/21 Time Seen by a Provider: 08:45 Attending Physician Brittany Felipe DO PCP Admitting Physician: Louisa Vicente MD Attending Physician: Brittany Felipe DO Referring Physician Date of Admission Oct 17, 2021 at 01:35 Home Medications & Allergies Home Medications Reviewed patient Home Medication Reconciliation performed by pharmacy medication reconciliations veterinary assistant technician and/or nursing. Patients Allergies have been reviewed. Allergies Allergies Coded Allergies insulin detemir (Verified Allergy, Intermediate, RASH, takes Lantus & Humalog at home, 08/23/18) red bumps at insertion site of injection Has received regular insulin & Novolog during previous hospitalization morphine (Verified Adverse Reaction, Intermediate, Vomiting, 07/05/19) Past Ugqtmkj-Pdxbfg-Xivedp Hx Patient Social History Employed/Student: retired Tobacco Use?: No Smoking Status: Never a Smoker Smokeless Tobacco Frequency: Never a User Use of E-Cig and/or Vaping dev: No Use of E-Cig and/or Vaping Marv: Never a User Substance use?: No Alcohol Use?: No Pt feels they are or have been: No Immunizations Up To Date Date of Influenza Vaccine: Feb 19, 2021 First/Initial COVID19 Vaccinat: 08/2020 Tetanus Booster (TDap): More Than 5 Years Hepatitis A: Yes PED Vaccines UTD: No Date of Pneumonia Vaccine: Feb 21, 2017 Seasonal Allergies Seasonal Allergies: No Current Status status: No status: No Advance Directives: Yes Advance Directive Location: Unable to obtain copy Communicates: Verbally Primary Language: Congolese Preferred Spoken Language: Congolese Sensory deficits: Vision impairment Implanted or Applied Medical D: CPAP Past Medical History Surgeries: Bladder Surgery, Breast, Hysterectomy, Joint Replacement, Oophorectomy, Orthopedic Sleep Apnea, COPD Currently Using CPAP: Yes Currently Using BIPAP: No Atrial Fibrillation, Chronic Edema/Swelling, Coronary Artery Disease, High Cholesterol, Hypertension, Rheumatic Fever Neuropathy [employer] History: Hysterectomy, Menopausal Sexually Transmitted Disease: No HIV/AIDS: No Bladder Infection Gastroesophageal Reflux, Hemorrhoids Arthritis, Chronic Back Pain, Fractures Diabetes, Insulin dep, Hypothyroidsim Loss of Vision: Bilateral Hearing Impairment: Denies Blood Disorders: No Adverse Reaction/Blood Tranf: No (N/A) Family Medical History Arthritis 19 FATHER 19 MOTHER Asthma 19 FATHER Cardiovascular disease 19 FATHER 19 MOTHER Cataracts 19 MOTHER Deafness or hearing loss 19 FATHER Dementia 19 MOTHER Diabetes mellitus G8 SISTER G8 SISTER Glaucoma 19 FATHER Hypertension 19 MOTHER Prostate cancer 19 FATHER Respiratory disorder 19 FATHER Thyroid disease G8 SISTER PAST SURGICAL HISTORY: -BILATERAL KNEE SCOPES -BILATERAL KNEE REPLACEMENT -RIGHT BREAST --REMOVAL OF BENIGN FIBRO-ADENOMA 1974 -COLONOSCOPY 04/28/[address] DIALLO FOR RECTAL BLEEDING-DX INTERNAL AND EXTERNAL HEMORRHOIDS -RIGHT ANKLE FX/ORIF 10/2020 -CARDIAC CATH 10/2011--NO INTERVENTION. -HYSTERECTOMY/BILATERAL SALPINGO-OOPHORECTOMY - Review of Systems Constitutional: No chills, No fever; malaise, weakness EENTM: no symptoms reported Respiratory: No cough; dyspnea on exertion Cardiovascular: No chest pain; Hx of Intervention; No palpitations Gastrointestinal: see HPI Genitourinary: no symptoms reported Musculoskeletal: muscle weakness Skin: no symptoms reported Psychiatric/Neurological: No Symptoms Reported Physical Exam Physical Exam Vital Signs Vital Signs - First Documented 10/17/21 10/17/21 00:57 06:37 Temp 36.7 Pulse 58 Resp 24 B/P (MAP) 118/60 (79) Pulse Ox 95 O2 Delivery Room Air O2 Flow Rate 2.00 Capillary Refill : Less Than 3 Seconds Height, Weight, BMI Height: 5'5.00" Weight: 226lbs. 4.0oz. 102.838365tc; 41.01 BMI Method:Stated General Appearance: No Apparent Distress, Obese HEENT: PERRL/EOMI, Moist Mucous Membranes; No Scleral Icterus (L), No Scleral Icterus (R) Neck: Normal Inspection, Supple Respiratory: Lungs Clear, No Respiratory Distress Cardiovascular: Regular Rate, Rhythm, No Murmur Gastrointestinal: Normal Bowel Sounds, Non Tender, Soft Extremity: No Calf Tenderness, No Pedal Edema Neurologic/Psychiatric: Alert, Oriented x3, Normal Mood/Affect Skin: Normal Color, Warm/Dry Results Results/Procedures Labs Laboratory Tests 10/17/21 01:25 10/17/21 07:51 Patient resulted labs reviewed. Imaging: Reviewed Imaging Report [facility] [place] [place] [facility] REC#: [id number] PT STATUS: ADM IN : 1950 PHYSICIAN: HAN MENDOZA DO ADMIT DATE: 10/17/21/CSD Signed Date of Exam:10/17/21 CHEST 1 VIEW, AP/PA ONLY INDICATION: Dyspnea. EXAMINATION: Chest 10/17/2021 COMPARISON: 06/01/2021 FINDINGS: The heart is enlarged. Pulmonary vasculature unremarkable. Lungs and pleural spaces clear. No infiltrates or effusions. IMPRESSION: 1. Cardiomegaly with no acute cardiopulmonary process. Dictated by: Dictated on workstation # [id number] Dict: 10/17/21 [id number] Trans: 10/17/21924 CV [id number] Interpreted by: GUME GARCIA MD Electronically signed by: GUME GARCIA MD 10/17/21924 [facility] [place], [place] [facility] REC#: [id number] PT STATUS: REG ER : 1950 PHYSICIAN: HAN MENDOZA DO ADMIT DATE: 10/17/21/ER Signed Date of Exam:10/17/21 CT ABDOMEN/PELVIS WO PROCEDURE: CT abdomen and pelvis without contrast. TECHNIQUE: Multiple contiguous axial images were obtained through the abdomen and pelvis without the use of intravenous contrast. Auto Exposure Controls were utilized during the CT exam to meet ALARA standards for radiation dose reduction. INDICATION: Gastrointestinal bleeding with progressive weakness There is a pericardial effusion measuring 1 cm in thickness. Lung bases are clear. Liver appears normal. There appears be small calculus in the gallbladder. Gallbladder is nondistended. Pancreas is unremarkable. Spleen is normal. There is aortic atherosclerosis. Kidneys and adrenals appear normal. Small bowel is not dilated. There is no evidence for appendicitis. Colon is unremarkable. There is a Delgado catheter in urinary bladder. Uterus is surgically absent. There is no intraperitoneal free air or free fluid. IMPRESSION: Moderate-sized pericardial effusion. Cholecystolithiasis without evidence of obstruction. Dictated by: Dictated on workstation # [id number] Dict: 10/17/217 Trans: 10/17/21429 TCB [id number] Interpreted by: PRESLEY WYNN MD Electronically signed by: PRESLEY WYNN MD 10/17/21429 Assessment/Plan Admission Diagnosis SANAM Admission Status: Inpatient Order (span 2 midnights) Reason for Inpatient Admission: see below Assessment and Plan SANAM Hyperkalemia Symptoms most likely related to dehydration and SANAM Continue IV fluid Hyperkalemia treated with Lasix, albuterol, calcium gluconate Repeat BMP at noon Monitor urine output GI bleed Bright red blood per rectum Hemoglobin 8 on arrival and near baseline for her on review of record Hemoglobin 8.6 with 1 unit Surgery consult Continue Protonix, DC octreotide as no evidence of active upper GI bleed Hole home eliquis Insulin-dependent diabetes type 2 continue home insulin regimen Has allergy to Levemir so advised [facility] Atrial fibrillation on chronic anticoagulation Hypertension Coronary artery disease Hyperlipidemia Pericardial effusion Hold home anticoagulation Blood pressure well controlled so hold antihypertensives Cardiology consulted Pericardial effusion seen on CT management per cardiology Weakness Obesity PT/OT DVT ppx: SCDs only for bleed Diagnosis/Problems Diagnosis/Problems (1) Hyperkalemia (2) Debilitated patient (3) Pericardial effusion (4) Paroxysmal atrial fibrillation (5) Coronary artery disease without angina pectoris (6) Hypertension Status: Chronic (7) Essential hypertension (8) PHILLIP on CPAP (9) Mixed hyperlipidemia (10) Pulmonary hypertension (11) IDDM (insulin dependent diabetes mellitus) Status: Acute (12) Anemia due to acute blood loss Status: Acute (13) Anticoagulant prescribed Status: Chronic (14) GI bleed Status: Acute (15) Acute renal failure Status: Acute (16) Morbid obesity LOUISA VICENTE MD Oct 17, 2021 09:24
[2021-10-17 09:43] LABS: POTASSIUM 7.2 MMOL/L (3.6-5.0)
--- NOTE | 2021-10-17 10:04 | Occ Therapy Progress Note ---
Therapy Progress Note OT order received, chart reviewed. Pt. admitted this date to ER with weakness and possible GI bleed. Pending all testing. Per physician notes, surgery consulted and transfusion may be needed. Will hold Occupational therapy services until further information gathered due to acute medical instability. 1004 AMAURY BARR OT Oct 17, 2021 10:04
[2021-10-17] MEDS: OCTREOTIDE DRIP 500 MCG/NS 99 ML IV SCH ×4 (10:25→16:15)
[2021-10-17] MEDS ORDERED: inSUlin ASPART (NovoLOG) 1 UNIT/0.01 ML (CHARGE PER UNIT) SC SCH (11:00)
[2021-10-17] MEDS ORDERED: ANTACID SUSP 30 ML UDC (MYLANTA) PO PRN (11:45)
[2021-10-17] MEDS ORDERED: LOPERAMIDE 2 MG (IMODIUM) TABLET PO PRN (11:45)
[2021-10-17] MEDS ORDERED: MILK OF MAGNESIA 400 MG/5 ML 30 ML UDC PO PRN (11:45)
[2021-10-17] MEDS ORDERED: MELATONIN 3 MG TABLET PO PRN (11:45)
--- NOTE | 2021-10-17 11:59 | Consultation-Cardiology ---
HPI-Cardiology Cardiology Consultation Date of Consultation 10/17/21 Date of Admission Time Seen by Provider: 09:00 HPI 71-year-old lady with history of paroxysmal atrial fibrillation, coronary artery disease and congestive heart failure. Came into the emergency room after having bloody stools, diarrhea. No chest pain, no shortness of breath. No nausea or vomiting. She has been complaining of generalized weakness and loss of energy. She had a colonoscopy done in April which showed hemorrhoids. On arrival patient was noted to be in acute renal failure and having severe anemia. On my evaluation she was laying down in bed, complaining of fatigue and mild shortness of breath. No chest pain. Home Medications & Allergies Allergies: Coded Allergies: insulin detemir (Verified Allergy, Intermediate, RASH, takes Lantus & Humalog at home, 08/23/18) red bumps at insertion site of injection Has received regular insulin & Novolog during previous hospitalization morphine (Verified Adverse Reaction, Intermediate, Vomiting, 07/05/19) Home Medication List Reviewed: Yes DNU-Obwrxd-Vywchx Hx Patient Social History Marital Status: Employed/Student: retired Drug of Choice: DENIES Smoking Status: Never a Smoker 2nd Hand Smoke Exposure: No Recent Hopitalizations: No Have you traveled recently?: No Alcohol Use?: No Immunizations Up To Date Tetanus Booster (TDap): Less than 5yrs Date of Pneumonia Vaccine: Feb 21, 2017 Date of Influenza Vaccine: Feb 19, 2021 Past Medical History Discussed below Family Medical History Family History: Arthritis 19 FATHER 19 MOTHER Asthma 19 FATHER Cardiovascular disease 19 FATHER 19 MOTHER Cataracts 19 MOTHER Deafness or hearing loss 19 FATHER Dementia 19 MOTHER Diabetes mellitus G8 SISTER G8 SISTER Glaucoma 19 FATHER Hypertension 19 MOTHER Prostate cancer 19 FATHER Respiratory disorder 19 FATHER Thyroid disease G8 SISTER Review of Systems-General Review of Systems Constitutional: No chills, No fever; malaise, weakness EENTM: no symptoms reported Respiratory: No cough; dyspnea on exertion Cardiovascular: see HPI; No chest pain; edema, Hx of Intervention; No palpitations, No syncope, No vascular heart diseas, No other Gastrointestinal: see HPI, diarrhea Genitourinary: no symptoms reported, see HPI Musculoskeletal: see HPI, muscle weakness Skin: no symptoms reported, see HPI Psychiatric/Neurological: No Symptoms Reported, See HPI Reviewed Test Results Reviewed Test Results Lab Laboratory Tests Test 10/17/21 01:25 10/17/21 01:50 10/17/21 05:40 10/17/21 07:51 Range/Units White Blood Count 14.2 H 12.1 H 4.3-11.0 10^3/uL Red Blood Count 2.86 L 3.09 L 3.80-5.11 10^6/uL Hemoglobin 8.0 L 8.6 L 11.5-16.0 g/dL Hematocrit 26 L 29 L 35-52 % Mean Corpuscular Volume 91 92 80-99 fL Mean Corpuscular Hemoglobin 28 28 25-34 pg Mean Corpuscular Hemoglobin Concent 31 L 30 L 32-36 g/dL Red Cell Distribution Width 15.7 H 15.6 H 10.0-14.5 % Platelet Count 403 H 332 130-400 10^3/uL Mean Platelet Volume 10.9 10.9 9.0-12.2 fL Immature Granulocyte % (Auto) 1 1 % Neutrophils (%) (Auto) 84 H 85 H 42-75 % Lymphocytes (%) (Auto) 6 L 7 L 12-44 % Monocytes (%) (Auto) 7 7 0-12 % Eosinophils (%) (Auto) 1 1 0-10 % Basophils (%) (Auto) 0 0 0-10 % Neutrophils # (Auto) 12.0 H 10.2 H 1.8-7.8 10^3/uL Lymphocytes # (Auto) 0.9 L 0.8 L 1.0-4.0 10^3/uL Monocytes # (Auto) 1.0 0.8 0.0-1.0 10^3/uL Eosinophils # (Auto) 0.1 0.1 0.0-0.3 10^3/uL Basophils # (Auto) 0.0 0.0 0.0-0.1 10^3/uL Immature Granulocyte # (Auto) 0.2 H 0.1 0.0-0.1 10^3/uL Neutrophils % (Manual) 83 % Lymphocytes % (Manual) 8 % Monocytes % (Manual) 7 % Eosinophils % (Manual) 1 % Basophils % (Manual) 1 % Atypical Lymphocytes 1 % Clumped Platelets SOME CLUMPING SEEN Polychromasia SLIGHT Erythrocyte Sedimentation Rate > 140 H 0-30 MM/HR Prothrombin Time 20.3 H 12.2-14.7 SEC INR Comment 1.7 H 0.8-1.4 Activated Partial Thromboplast Time 36 H 24-35 SEC Sodium Level 132 L 133 L 135-145 MMOL/L Potassium Level 7.2 *H 6.6 *H 3.6-5.0 MMOL/L Chloride Level 102 106 98-107 MMOL/L Carbon Dioxide Level 15 L 13 L 21-32 MMOL/L Anion Gap 15 H 14 5-14 MMOL/L Blood Urea Nitrogen 91 H 83 H 7-18 MG/DL Creatinine 3.45 H 2.73 #H 0.60-1.30 MG/DL Estimat Glomerular Filtration Rate 14 18 BUN/Creatinine Ratio 26 30 Glucose Level 201 H 256 H 70-105 MG/DL Calcium Level 9.2 8.8 8.5-10.1 MG/DL Corrected Calcium 9.6 8.5-10.1 MG/DL Magnesium Level 2.6 H 1.6-2.4 MG/DL Total Bilirubin 0.3 0.1-1.0 MG/DL Aspartate Amino Transf (AST/SGOT) 39 H 5-34 U/L Alanine Aminotransferase (ALT/SGPT) 22 0-55 U/L Alkaline Phosphatase 160 H 40-136 U/L Total Creatine Kinase 7 L 29-168 U/L Creatine Kinase MB 0.9 <6.6 NG/ML Myoglobin 63.2 10.0-92.0 NG/ML Troponin I < 0.028 <0.028 NG/ML C-Reactive Protein High Sensitivity 12.65 H 0.00-0.50 MG/DL Total Protein 8.3 H 6.4-8.2 GM/DL Albumin 3.5 3.2-4.5 GM/DL TSH [place] Testing 0.97 0.35-4.94 UIU/ML Urine Color YELLOW Urine Clarity CLEAR Urine pH 5.0 5-9 Urine Specific [place] >=1.030 1.016-1.022 Urine Protein TRACE H NEGATIVE Urine Glucose (UA) NEGATIVE NEGATIVE Urine Ketones 1+ H NEGATIVE Urine Nitrite NEGATIVE NEGATIVE Urine Bilirubin 2+ H NEGATIVE Urine Urobilinogen 0.2 < = 1.0 MG/DL Urine Leukocyte Esterase NEGATIVE NEGATIVE Urine RBC (Auto) NEGATIVE NEGATIVE Urine RBC 2-5 H /HPF Urine WBC 2-5 /HPF Urine Squamous Epithelial Cells 2-5 /HPF Urine Crystals PRESENT H /LPF Urine Calcium Oxalate Crystals FEW H /LPF Urine Bacteria MODERATE H /HPF Urine Casts NONE /LPF Urine Mucus NEGATIVE /LPF Urine Culture Indicated YES B-Type Natriuretic Peptide 123.5 H <100.0 PG/ML Test 10/17/21 11:36 Range/Units Glucometer 410 *H 70-110 MG/DL Physical Exam Physical Exam Vital Signs Vital Signs - First Documented 10/17/21 10/17/21 00:57 06:37 Temp 36.7 Pulse 58 Resp 24 B/P (MAP) 118/60 (79) Pulse Ox 95 O2 Delivery Room Air O2 Flow Rate 2.00 Capillary Refill : Less Than 3 Seconds Height, Weight, BMI Height: 5'5.00" Weight: 226lbs. 4.0oz. 102.962283ec; 41.01 BMI Method:Stated General Appearance: No Apparent Distress, Obese HEENT: PERRL/EOMI, Moist Mucous Membranes; No Scleral Icterus (L), No Scleral Icterus (R) Neck: Normal Inspection, Supple Respiratory: Lungs Clear, No Respiratory Distress Cardiovascular: Regular Rate, Rhythm, No Murmur Gastrointestinal: Normal Bowel Sounds, Non Tender, Soft Back: No CVA Tenderness Extremity: No Calf Tenderness, No Pedal Edema Neurologic/Psychiatric: Alert, Oriented x3, Normal Mood/Affect Skin: Normal Color, Warm/Dry A/P-Cardiology Admission Diagnosis Acute GI bleed Acute renal failure Hyperkalemia Paroxysmal atrial fibrillation Assessment/Plan Acute renal failure. Worsening renal function. Receiving IV fluids. Continue to monitor renal function and I recommend holding off on diuretics at this point. Shortness of breath. Worsening recently. History of congestive heart failure with chronic left ventricular diastolic dysfunction with normal systolic function. Underlying COPD is playing a role in her worsening dyspnea also. Hyperkalemia, received calcium gluconate and albuterol. We will give her Kayexalate and monitor tolerance and response. Has history of hyperkalemia in the past. Stopping ISATU inhibitor did not change her potassium level. Her wooden tank erector has recommended restarting ISATU inhibitor. I will advise her against the use of ISATU inhibitor and/or ARB and or Aldactone at this time. GI bleed, bright red blood per rectum. History of colonoscopy with hemorrhoids. Hemoglobin was 8 on arrival. Received blood transfusion. Continue to monitor H&H Coronary artery disease, history of stress test done in May 2018 showing no significant ischemia or infarction, ejection fraction 74% Cardiac catheterization was done in October 2011 showing no significant obstructive disease Paroxysmal atrial fibrillation, treated with flecainide, has been followed by Dr. Stanton ACE in [place]. Continue to monitor closely. Planning to evaluate twelve-lead EKG and echocardiogram Chronic anticoagulation maintained on Eliquis. Continue to hold Eliquis for now and monitor closely Congestive heart failure, acute on chronic left ventricular diastolic dysfunction. Last echocardiogram was done in March 2020 showing ejection fraction 60 to 65% with grade 2 diastolic dysfunction severely dilated left atrium, mild mitral regurgitation with severe pulmonary hypertension, PA pressure 50 to 55 mmHg COPD, morbid obesity Pulmonary hypertension secondary to diastolic dysfunction and COPD. Pericardial effusion, noted on CT scan. I will evaluate 2D echocardiogram. Generalized weakness and loss of energy. Secondary to above. Mild bilateral carotid stenosis last ultrasound was done in January 2021. Hypertension, monitor blood pressure Hyperlipidemia, monitor lipids Obesity, BMI 41. Addendum: Echo showed moderate to large pericardial effusion with threatening tamponade. I discussed with Dr Sen and will give bolus with IVF and arrange to transfer to tertiary care center She will need pericardiocenthesis, due to the size of the effusion and the multiple comorbid conditions, she will require a tertiary care center SELINA PENG MD Oct 17, 2021 11:59
[2021-10-17] MEDS ORDERED: SOD POLYSTERENE 15 GM/60 ML (KAYEXALATE) UNIT DOSE PO ONE (12:00)
--- NOTE | 2021-10-17 12:15 | CONSULTATION REPORT ---
DATE OF SERVICE: 10/17/2021 ATTENDING PRIMARY CARE PHYSICIAN: Dr. Brittany Felipe. ADMITTING PHYSICIAN: Dr. Paty Sen. HISTORY OF PRESENT ILLNESS: The patient is a 71-year-old female, who presented to the Emergency Department with weakness and fatigue and inability to walk. She also had noticed that she has had some loose stools as well. She herself is unsure if she noticed any blood in her stool. She is on Eliquis for atrial fibrillation. She did have a colonoscopy in 04/2021, where she was found to have hemorrhoids. She also reports that she has a history of gastroesophageal reflux disease; however, after being placed on omeprazole, she has not had any symptoms. She also reports that she has had a longstanding history of anemia. PAST MEDICAL HISTORY: Atrial fibrillation, asthma, COPD, sleep apnea, history of rheumatic fever, peripheral vascular disease, hypertension, hypercholesterolemia, gastroesophageal reflux disease, hemorrhoids, degenerative joint disease, diabetes, and hypothyroid. PAST SURGICAL HISTORY: Bilateral total knee arthroplasty, removal of right breast fibroadenoma, and cardiac catheterization. ALLERGIES: DETEMIR INSULIN, MORPHINE. MEDICATIONS: Eliquis 5 mg b.i.d., cetirizine 10 mg daily, doxazosin 4 mg t.i.d., enalapril 10 mg daily, flecainide 150 mg b.i.d., furosemide 40 mg daily, glargine insulin 25 units each day at bedtime, lispro insulin 12 to 20 units each day before meals, levothyroxine 100 mcg daily, Lutein 6 mg daily, metoprolol 50 mg daily, montelukast 10 mg daily, omeprazole 20 mg daily, pravastatin 40 mg daily, and triamterene/hydrochlorothiazide 75/50 mg daily. SOCIAL HISTORY: Negative smoke and negative alcohol. FAMILY HISTORY: Father, prostate cancer. REVIEW OF SYSTEMS: A well-nourished female currently in no acute distress. She is not experiencing any shortness of breath or difficulty in breathing. No chest pain, palpitations, diaphoresis. No nausea, vomiting, no diarrhea or constipation. She does not report any known red blood per rectum nor any dark tarry stools. She does state a history of hemorrhoids and has had red blood per rectum in the past. No fever, chills, and no recent inadvertent weight loss. All other review of systems negative. PHYSICAL EXAMINATION: VITAL SIGNS: Temperature 36.8, blood pressure 111/67, pulse 71, respirations 18, and pulse ox 96% on room air. CHEST: A few scattered rales bilaterally. HEART: Regular, no murmurs. EXTREMITIES: No lower extremity edema and negative Homans sign. HEENT: No scleral icterus. NECK: No cervical lymphadenopathy. ABDOMEN: Soft, nontender, and nondistended. SKIN: Warm and dry. LABORATORY DATA: WBC 12.1, hemoglobin 8.6, hematocrit 29, and platelets 332. BUN 83, creatinine 2.73, and potassium 6.6. ASSESSMENT AND PLAN: A 71-year-old female in atrial fibrillation as well as weakness. She was admitted, started on IV cardiac medications and it appears that she is currently rate controlled. Upon further questioning, she reports that she has had a longstanding history of anemia and did have a colonoscopy April of 2021, where she was found to have hemorrhoids and does report having some hemorrhoidal disease on the intermittent basis. She also states a history of gastroesophageal reflux disease; however, after being placed on omeprazole, she states that she has been asymptomatic. At this time, we will continue to monitor her hemoglobin. If this does decrease, for her next intervention, we would recommend an EGD. Job ID: [id number] DocumentID: [id number] Dictated Date: 10/17/2021 11:37:57 It Web Development Consultant Date: 10/17/2021 12:14:28 Dictated By: ZION ALBARRAN MD
[2021-10-17 12:16] LABS: CALCIUM 9.3 MG/DL (8.5-10.1); CREATININE SERUM 2.88 MG/DL (0.60-1.30)
[2021-10-17] MEDS: inSUlin ASPART (NovoLOG) 1 UNIT/0.01 ML (CHARGE PER UNIT) SC SCH ×4 (12:21→16:32)
--- NOTE | 2021-10-17 12:23 | Physical Therapy Evaluation ---
PT Evaluation-General Medical Diagnosis Admission Date Oct 17, 2021 at 01:35 Medical Diagnosis: GI Bleed Onset Date: Oct 16, 2021 Therapy Diagnosis Therapy Diagnosis: Gait deficit, strength deficit Height/Weight Height (Feet): 5 Height (Inches): 5.00 Weight (Pounds): 226 Weight (Ounces): 4.0 Precautions Precautions/Isolations: Fall Prevention, Standard Precautions Weight Bear Status Right Lower Extremity: Right Full Weight Bearing Left Lower Extremity: Left Full Weight Bearing Referral Physician: Dr. Sen Reason for Referral: Evaluation/Treatment Medical History Pertinent Medical History: Atrial Fib, DM, HTN, Neuropathy Reviewed History: Yes Social History Home: Single Level Current Living Status: Spouse Entry Into Home: Stairs With Railing PT Steps Into Home: 3 Prior Prior Level of Function SCALE: Activities may be completed with or without assistive devices. 1-Ohbnukdtpr-nznpglb completes the activity by him/herself with no assistance from a helper. 5-Set-up or Clean-up Assistance-helper sets up or cleans up; patient completes activity. [place] assists only prior to or following the activity. 4-Supervision or Touching Assistance-helper provides verbal cues and/or touching/steadying and/or contact guard assistance as patient completes activity. Assistance may be provided throughout the activity or intermittently. 3-Partial/Moderate Assistance-helper does LESS THAN HALF the effort. [place] lifts, holds or supports trunk or limbs, but provides less than half the effort. 2-Substantial/Maximal Assistance-helper does MORE THAN HALF the effort. [place] lifts or holds trunk or limbs and provides more than half the effort. 6-Huwzktirf-aoszbx does ALL the effort. Patient does none of the effort to complete the activity. Or, the assistance of 2 or more helpers is required for the patient to complete the activity. If activity was not attempted, code reason: 7-Patient Refused. 9-Not Applicable-not attempted and the patient did not perform the activity b efore the current illness, exacerbation or injury. 10-Not Attempted due to Environmental Limitations-(lack of equipment, weather restraints, etc.). 88-Not Attempted due to Medical Conditions or Safety Concerns. Bed Mobility: 6 Transfers (B,C,W/C): 6 Gait: 6 Stairs: 6 Indoor Mobility (Ambulation): Independent Stairs: Independent Prior Devices Use: Walker PT Evaluation-Current Subjective Patient lying supine in bed upon PT arrival, agreeable to treatment. Patient rates pain at 0/10 currently Objective Patient Orientation: Person, Place, Time, Situation ROM/Strength ROM Lower Extremities WFLs bilaterally all planes with AROM Strength Lower Extremities 3+/5 bilaterally all planes Sensory Vision: Functional Hearing: Functional Sensation Right Lower Extremit: Intact Sensation Left Lower Extremity: Intact Transfers Roll Left to Right (QC): 3 Sit to Lying (QC): 3 Lying to Sitting/Side of Bed(Q: 3 Sit to Stand (QC): 3 Chair/Qbu-nm-Hrawq Xfer(QC): 3 Gait Does the Patient Walk?: No and Walking Goal IS indicated Mode of Locomotion: Walk Anticipated Mode of Locomotion: Walk Balance Sitting Static: Good Sitting Dynamic: Good Standing Static: Fair Standing Dynamic: Fair Assessment/Needs Patient performs all observed bed mobility and transfers with min A. Patient fatigued quickly with activity, O2 sats decreased to 85% on room air. Patient on RA upon PT arrival, nasal canula replaced with 3 L O2. O2 Sats increased to 96% upon PT departure. Patient in bed post treatment with all needs met, nursing notified, call light in hand. 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 Goals Welding Process Engineer Goals PT Welding Process Engineer Goals Time Frame: Nov 06, 2021 Roll Left & Right (QC): 6 Sit to Lying (QC): 6 Lying-Sitting on Side/Bed(QC): 6 Sit to Stand (QC): 6 Chair/Dlp-mx-Iwnio Xfer(QC): 6 Toilet Transfer (QC): 6 Does the Patient Walk: Yes Walk 10 feet (QC): 5 Walk 50ft with 2 Turns (QC): 5 Walk 150 ft (QC): 5 1 Step (curb) (QC): 4 4 Steps (QC): 4 PT Plan Problem List Problem List: Activity Tolerance, Functional Strength, Safety, Balance, Gait, Transfer, Bed Mobility, ROM Treatment/Plan Treatment Plan: Continue Plan of Care Treatment Plan: Bed Mobility, Education, Functional Activity Devika, Functional Strength, Group Therapy, Gait, Safety, Therapeutic Exercise, Transfers Treatment Duration: Dec 11, 2021 Frequency: 6 times per week Estimated Hrs Per Day: .25 hour per day Patient and/or Family Agrees t: Yes Safety Risks/Education Patient Education: Transfer Techniques Teaching Recipient: Patient Teaching Methods: Demonstration, Discussion Response to Teaching: Reinforcement Needed Time/GCodes Time In: 1200 Time Out: 1220 Total Billed Treatment Time: 20 Total Billed Treatment Visit, EMILY Casper PT Oct 17, 2021 12:23
--- NOTE | 2021-10-19 11:33 | Physician Query Clarification ---
PQ-Further Specificity Admission/Discharge Admission Date: Oct 17, 2021 at 01:35 Discharge Date: Oct 17, 2021 at 17:40 Dr. Felipe, The medical record reflects the following clinical scenario: History/Risk Factors: GIB, ABLA, SANAM, hx hemorrhoids Clinical Findings: Hgb 8.0, weakness, bloody stools, SOB Treatment: Transfuse 1 PRBC, IV Octreotide Question: Can you further specify if the GIB is do to the hemorrhoids or not per the clinical indicators above? Please document a response in the Progress Notes or Discharge Summary. 1. GIB d/t hemorrhoids 2. GI bleed underlying cause not determined 3. Other, with explanation of the clinical findings. 4. Clinically undetermined, no explanation for the clinical findings. PHYSICIAN RESPONSE Can you specify per above: Clinically undetermined (inquire with dr ayers) Explanation/Clinical Findings dr ayers took care of her In responding to this query, please exercise your independent professional judgment. The purpose of this communication is to more accurately reflect the complexity of your patients condition. The fact that a question is asked does not imply that any particular answer is desired or expected. Thank you for your timely response to this clarification. Requestors name: Moises THIS PHYSICIAN QUERY FORM IS A PERMANENT PART OF THE MEDICAL RECORD MOISES RUBIN Oct 19, 2021 11:33 HEATHER FELIPE DO Oct 19, 2021 12:24
--- NOTE | 2021-10-20 08:32 | Physician Query Clarification ---
PQ-Further Specificity Admission/Discharge Admission Date: Oct 17, 2021 at 01:35 Discharge Date: Oct 17, 2021 at 17:40 Dr. Sen, The medical record reflects the following clinical scenario: Admission Date: Oct 17, 2021 at 01:35 Discharge Date: Oct 17, 2021 at 17:40 , The medical record reflects the following clinical scenario: History/Risk Factors: GIB, ABLA, SANAM, hx hemorrhoids Clinical Findings: Hgb 8.0, weakness, bloody stools, SOB Treatment: Transfuse 1 PRBC, IV Octreotide Question: Can you further specify if the GIB is do to the hemorrhoids or not per the clinical indicators above? Please document a response in the Progress Notes or Discharge Summary. 1. GIB d/t hemorrhoids 2. GI bleed underlying cause not determined 3. Other, with explanation of the clinical findings. 4. Clinically undetermined, no explanation for the clinical findings. PHYSICIAN RESPONSE Can you specify per above: 2 In responding to this query, please exercise your independent professional judgment. The purpose of this communication is to more accurately reflect the complexity of your patients condition. The fact that a question is asked does not imply that any particular answer is desired or expected. Thank you for your timely response to this clarification. Requestors name: Moises THIS PHYSICIAN QUERY FORM IS A PERMANENT PART OF THE MEDICAL RECORD MOISES RUBIN Oct 20, 2021 08:32 LOUISA SEN MD Oct 27, 2021 15:42
== END 2021-10-17 17:40 | disposition short-term general hospital (02) | DRG 377 ==
LOC: EDUNIT# 00:54 → ER 00:56 → CSD 01:35
PROVIDERS: ADMIT Family Medicine; ATTEND Internal Medicine
DX: K92.1 Melena (principal); I50.33 Acute on chronic diastolic (congestive) heart failure; N17.9 Acute kidney failure, unspecified; D62 Acute posthemorrhagic anemia; Z68.41 Body mass index [BMI] 40.0-44.9, adult; N39.0 Urinary tract infection, site not specified; I31.3 Pericardial effusion (noninflammatory); I09.81 Rheumatic heart failure; K64.9 Unspecified hemorrhoids; I11.0 Hypertensive heart disease with heart failure; E66.01 Morbid (severe) obesity due to excess calories; E86.0 Dehydration; E11.40 Type 2 diabetes mellitus with diabetic neuropathy, unspecified; E87.5 Hyperkalemia; G47.33 Obstructive sleep apnea (adult) (pediatric); F44.9 Dissociative and conversion disorder, unspecified; I48.0 Paroxysmal atrial fibrillation; I25.10 Atherosclerotic heart disease of native coronary artery without angina pectoris; M19.91 Primary osteoarthritis, unspecified site; E78.00 Pure hypercholesterolemia, unspecified; E78.2 Mixed hyperlipidemia; K21.9 Gastro-esophageal reflux disease without esophagitis; I65.23 Occlusion and stenosis of bilateral carotid arteries; I34.0 Nonrheumatic mitral (valve) insufficiency; E03.9 Hypothyroidism, unspecified; H54.3 Unqualified visual loss, both eyes; I27.20 Pulmonary hypertension, unspecified; Z79.4 Long term (current) use of insulin; Z79.01 Long term (current) use of anticoagulants; Z88.5 Allergy status to narcotic agent; Z83.3 Family history of diabetes mellitus; Z82.49 Family history of ischemic heart disease and other diseases of the circulatory system; Z83.49 Family history of other endocrine, nutritional and metabolic diseases
CPT/HCPCS: 36415; 36430; 71045; 74176; 80048; 80053; 81000; 82274; 82550; 82553; 82947; 83735; 83874; 83880; 84443; 84484; 85007; 85025; 85027; 85610; 85652; 85730; 86141; 86850; 86900; 86901; 86920; 87088; 93005; 93041; 93306; 94640; 96374; 96375

== ENCOUNTER → 2022-03-15 | Outpatient (RCR) | payer MEDICARE, OTHER ==
[~2022-03-15] MED LIST changes: +ALBU8.5H6 IH; -RT-ALBUINH IH
== END | disposition home or self-care (01) ==
PROVIDERS: ATTEND Internal Medicine
DX: R53.1 Weakness (principal); R26.81 Unsteadiness on feet

== ENCOUNTER 2022-03-22 10:54 | Outpatient (CLI) | payer MEDICARE, OTHER | END 2022-03-22 11:20 | LOC: SLEEP 10:54 | PROVIDERS: ATTEND Otolaryngology Otolaryngology/Facial Plastic Surgery | DX: G47.33 Obstructive sleep apnea (adult) (pediatric) (principal) | CPT/HCPCS: G0399 ==

== ENCOUNTER 2022-03-30 13:30 | Outpatient (CLI) | payer MEDICARE, OTHER ==
[2022-03-30 13:30] VITALS: BP 117/48
[2022-03-30] MEDS ORDERED: ZOLEDRONATE (RECLAST) 5 MG/100 ML IV ONE (13:45)
== END 2022-03-30 14:55 | disposition home or self-care (01) ==
LOC: SDC 13:30
PROVIDERS: ATTEND Internal Medicine
DX: M81.0 Age-related osteoporosis without current pathological fracture (principal)
CPT/HCPCS: 96365

== ENCOUNTER 2022-04-13 13:45 | Outpatient (RCR) | payer MEDICARE, OTHER | END 2022-04-14 | disposition home or self-care (01) | PROVIDERS: ATTEND Internal Medicine | DX: R53.1 Weakness (principal); R26.81 Unsteadiness on feet ==

== ENCOUNTER 2022-05-05 13:02 | Outpatient (RCR) | payer MEDICARE, OTHER | END 2022-05-15 | disposition home or self-care (01) | PROVIDERS: ATTEND Internal Medicine | DX: R53.1 Weakness (principal); R26.81 Unsteadiness on feet; I10 Essential (primary) hypertension; J45.909 Unspecified asthma, uncomplicated ==

== ENCOUNTER → 2022-06-15 | Outpatient (RCR) | payer MEDICARE, OTHER | END | disposition home or self-care (01) | PROVIDERS: ATTEND Internal Medicine | DX: R53.1 Weakness (principal); R26.81 Unsteadiness on feet; I10 Essential (primary) hypertension; J45.909 Unspecified asthma, uncomplicated ==

== ENCOUNTER → 2022-06-21 | Outpatient (CLI) | payer MEDICARE, OTHER ==
--- NOTE | 2022-06-21 11:59 | Diagnostic Imaging Report ---
PROCEDURE: US Renal Bilateral. TECHNIQUE: Multiple real-time grayscale images were obtained over the kidneys in various projections bilaterally. INDICATION: Chronic kidney disease stage III. Right kidney measures 12.5 x 4.2 x 4.3 cm, the left kidney measures 9.3 x 5.4 x 5.6 cm. Cortical thickness and echogenicity is normal. No calculi are seen. No hydronephrosis is identified. There is slight prominence of the right renal pelvis. Bladder volume is 143 mL. Bilateral ureteral jets were visualized. IMPRESSION: Mild right-sided pelviectasis. Study is otherwise unremarkable. Dictated by: Dictated on workstation # [id number]
== END ==
LOC: RAD 10:12
PROVIDERS: ATTEND Internal Medicine Nephrology
DX: I12.9 Hypertensive chronic kidney disease with stage 1 through stage 4 chronic kidney disease, or unspecified chronic kidney disease (principal); N18.32 Chronic kidney disease, stage 3b
CPT/HCPCS: 76770

== ENCOUNTER 2022-07-09 13:46 | Outpatient (RCR) | payer MEDICARE, OTHER | END 2022-07-09 16:05 | disposition home or self-care (01) | PROVIDERS: ATTEND Internal Medicine | DX: R53.1 Weakness (principal); R26.81 Unsteadiness on feet; I10 Essential (primary) hypertension; J45.909 Unspecified asthma, uncomplicated ==

== ENCOUNTER → 2022-07-23 | Outpatient (CLI) | payer MEDICARE, OTHER | LOC: CARD 11:43 | PROVIDERS: ATTEND Internal Medicine Cardiovascular Disease | DX: I31.39 Other pericardial effusion (noninflammatory) (principal) | CPT/HCPCS: 93306 ==

== ENCOUNTER → 2022-08-10 | Outpatient (CLI) | payer MEDICARE, OTHER ==
[~2022-08-10] MED LIST changes: +CATHETER FLUSH 10 ML SYR IVP PRN; +REGADENOSON 0.4 MG/5 ML SYR (LEXISCAN) IV ONE
[2022-08-10 09:21] VITALS: BP 159/67
--- NOTE | 2022-08-10 21:01 | STRESS TEST ---
DATE OF SERVICE: 08/10/2022 RESTING AND POST REGADENOSON TECHNETIUM-99M TETROFOSMIN SPECT CT IMAGING ORDERING PHYSICIAN: Macy Szymanski APRN PRIMARY PHYSICIAN: Dr. Felipe. CLINICAL DIAGNOSIS: Shortness of breath. Baseline images were carried out after injection of 10.39 mCi, tetrofosmin. This was followed by 0.4 mg regadenoson and 28.9 mCi technetium-99m tetrofosmin for stress imaging. The electrocardiogram showed sinus rhythm at baseline. It did not change significantly with the regadenoson infusion. The patient tolerated the procedure well. Review of images at rest and following stress does not indicate any significant perfusion defects myocardial ischemia or infarction. Gated images showed normal global left ventricular systolic function with normal regional wall motion. Left ventricular ejection fraction is calculated to be 69%. CONCLUSIONS: 1. No evidence of any significant myocardial ischemia or infarction on this study. 2. Normal regional wall motion. 3. Normal global left ventricular systolic function with a calculated ejection fraction of 73%. Job ID: [id number] DocumentID: [id number] Dictated Date: 08/10/2022 18:34:35 Fiber Technologist Date: 08/10/2022 21:00:00 Dictated By: CHARLES LINN MD; COLLIN; FACP; FACC;
== END ==
LOC: CARD 07:48
PROVIDERS: ATTEND Nurse Practitioner Family
DX: R06.09 Other forms of dyspnea (principal)
CPT/HCPCS: 78452; 93017; A9502

== ENCOUNTER → 2022-09-28 | Outpatient (CLI) | payer MEDICARE, OTHER ==
[~2022-09-28] MED LIST changes: -CATHETER FLUSH 10 ML SYR IVP PRN; -ENAL10TA16 PO; +ENLP10T PO; -REGADENOSON 0.4 MG/5 ML SYR (LEXISCAN) IV ONE
--- NOTE | 2022-09-28 13:17 | Diagnostic Imaging Report ---
INDICATION: Routine screening. COMPARISON: 08/04/2021 and 10/31/2019. TECHNIQUE: 2D and 3D bilateral screening mammography was performed with CAD. FINDINGS: Scattered fibroglandular densities are identified bilaterally. The parenchymal pattern appears stable. No dominant mass or malignant-appearing microcalcifications are seen. There are scattered benign calcifications in both breasts. The axillae are unremarkable. IMPRESSION: No mammographic features suspicious for malignancy are identified. ACR BI-RADS Category 2: Benign findings. Result letter will be mailed to the patient. Note: At least 10% of breast cancer is not imaged by mammography. Dictated by: Dictated on workstation # [id number]
== END ==
LOC: RAD 08:48
PROVIDERS: ATTEND Internal Medicine
DX: Z12.31 Encounter for screening mammogram for malignant neoplasm of breast (principal)
CPT/HCPCS: 77063; 77067

== ENCOUNTER 2022-10-06 13:02 | Outpatient (RCR) | payer MEDICARE, OTHER ==
[2022-09-27 13:20] VITALS: BP 108/59
[2022-09-27] MEDS: IRON SUCROSE 200 MG/10 ML (VENOFER) VIAL IV SCH (13:31)
[2022-09-29] MEDS: IRON SUCROSE 200 MG/10 ML (VENOFER) VIAL IV SCH (13:15)
[2022-09-29 13:47] VITALS: BP 147/53
[2022-10-01 12:55] VITALS: BP 187/59
[2022-10-01] MEDS: IRON SUCROSE 200 MG/10 ML (VENOFER) VIAL IV SCH (13:10)
[2022-10-04 13:18] VITALS: BP 179/53
[2022-10-04] MEDS: IRON SUCROSE 200 MG/10 ML (VENOFER) VIAL IV SCH (13:18)
[~2022-10-06] VITALS: Ht 165 cm; Wt 100.0 kg
[~2022-10-06 13:02] MED LIST changes: +IRON SUCROSE 200 MG/10 ML (VENOFER) VIAL IV ONE; +NS (IVPB) 100 ML ONE
[2022-10-06] MEDS ORDERED: IRON SUCROSE 200 MG/10 ML (VENOFER) VIAL IV ONE (13:15)
[2022-10-06 14:00] VITALS: BP 179/63
== END 2022-10-06 14:00 | disposition home or self-care (01) ==
LOC: SDC 13:02
PROVIDERS: ATTEND Internal Medicine Nephrology
DX: D50.8 Other iron deficiency anemias (principal)
CPT/HCPCS: 96365